=== PATIENT | female | born 1940 | race Caucasian/White ===

== ENCOUNTER → 2018-03-18 11:03 | Outpatient (CLI) | payer MEDICARE, OTHER, SELFPAY ==
--- NOTE | 2018-03-18 | DI.RAD.S_ITS ---
PROCEDURE: XR ANKLE RT MIN 3V INDICATIONS: RIGHT ANKLE PAIN TECHNIQUE: 3 views of the ankle were acquired. COMPARISON: None. FINDINGS: Bones: No fractures or dislocations. Ankle mortise is normally aligned. No suspicious bony lesions. Soft tissues: No tibiotalar joint effusion. Achilles tendon appears normal. IMPRESSION: No trauma found. Mild plantar fascial insertion spurring, minimal Achilles tendon insertion spurring on the posterior calcaneus. Dictated by: Christiano Liao M.D. on 03/18/2018 at 12:33 Approved by: Christiano Liao M.D. on 03/18/2018 at 12:33
== END ==
PROVIDERS: Family Provider Family Medicine; PCP Family Medicine; Visit Provider Family Medicine
DX: M25.571 Pain in right ankle and joints of right foot (principal); M77.31 Calcaneal spur, right foot
CPT/HCPCS: 73610

== ENCOUNTER → 2018-08-31 18:09 | Outpatient (CLI) | payer MEDICARE, OTHER, SELFPAY | PROVIDERS: Family Provider Family Medicine; PCP Family Medicine; Visit Provider Physician Assistant | DX: N39.0 Urinary tract infection, site not specified (principal) | CPT/HCPCS: 87077; 87086; 87186 ==

== ENCOUNTER → 2018-12-06 17:02 | Outpatient (CLI) | payer MEDICARE, OTHER, SELFPAY ==
--- NOTE | 2018-12-06 17:05 | DI.MG.S_ITS ---
BILATERAL DIGITAL SCREENING MAMMOGRAM 3D/2D WITH CAD: 12/06/2018 CLINICAL: Routine screening. Comparison is made to exams dated: 03/08/2015 mammogram, 03/09/2016 mammogram, and 03/12/2017 mammogram - [facility] Current study was also evaluated with a Computer Aided Detection (CAD) system. There are benign calcifications in both breasts. No significant masses, calcifications, or other findings are seen in either breast. There has been no significant interval change. IMPRESSION: There is no mammographic evidence of malignancy. A 1 year screening mammogram is recommended. This exam was interpreted at Station ID: [id number]. NOTE: For mammograms, a report in lay terms will be sent to the patient. Approximately 15% of breast malignancies will not be visualized mammographically. In the management of a palpable breast mass, a negative mammogram must not discourage biopsy of a clinically suspicious lesion. Electronically Signed By: Gema gonsalves/clarisse:12/07/2018 09:39:59 letter sent: Normal Exam ACR BI-RADS Category 2: Benign Finding(s) [id number]
== END ==
PROVIDERS: Family Provider Family Medicine; PCP Family Medicine; Visit Provider Family Medicine
DX: Z12.31 Encounter for screening mammogram for malignant neoplasm of breast (principal)
CPT/HCPCS: 77063; 77067

== ENCOUNTER → 2018-12-19 15:14 | Outpatient (CLI) | payer MEDICARE, OTHER, SELFPAY | PROVIDERS: Family Provider Family Medicine; PCP Family Medicine; Visit Provider Family Medicine | DX: M81.0 Age-related osteoporosis without current pathological fracture (principal); Z82.62 Family history of osteoporosis; M85.832 Other specified disorders of bone density and structure, left forearm; Z78.0 Asymptomatic menopausal state | CPT/HCPCS: 77080 ==

== ENCOUNTER → 2019-03-02 13:09 | Outpatient (CLI) | payer MEDICARE, OTHER, SELFPAY ==
--- NOTE | 2019-03-02 | DI.RAD.S_ITS ---
PROCEDURE: XR FOOT RT MIN 3V INDICATIONS: RIGHT TOE PAIN TECHNIQUE: 3 views of the foot were acquired. COMPARISON: None. FINDINGS: Bones: No fractures or dislocations. No suspicious bony lesions. There is bunioin. Severe degenerative joint disease at the calcaneocuboid joint and first metatarsophalangeal joint, and mild to moderate degenerative joint disease at the intertarsal joints, tarsometatarsal joints and interphalangeal joints. Calcaneal spurring. There is osteopenia. Soft tissues: No tibiotalar joint effusion. Achilles tendon appears normal. IMPRESSION: 1. Bunion. 2. Degenerative joint disease. 3. Osteopenia. Dictated by: Elizabeth Vasquez M.D. on 03/02/2019 at 17:50 Approved by: Elizabeth Vasquez M.D. on 03/02/2019 at 17:52
== END ==
PROVIDERS: PCP Family Medicine; Visit Provider Podiatrist
DX: M79.674 Pain in right toe(s) (principal); M21.611 Bunion of right foot; M19.071 Primary osteoarthritis, right ankle and foot; M85.871 Other specified disorders of bone density and structure, right ankle and foot
CPT/HCPCS: 73630

== ENCOUNTER 2019-04-05 12:00 | Outpatient (RCR) | payer MEDICARE, OTHER, SELFPAY ==
--- NOTE | 2019-03-15 18:10 | PT.OIE ---
Current Diagnoses Pain in unspecified foot (03/15/19) Unspecified abnormalities of gait and mobility (03/15/19) Unspecified lack of coordination (03/15/19) Abnormal posture (03/15/19) Visit Care Team Role Provider Type Richie Lamb MD Attending Provider Physician Primary Care Provider Specialty: Family Practice Address: [address] [place] [address], [place], [address] Email: [email or web address] Physical Therapy Initial Evaluation PT-OP-A Visit Information Start: 03/15/19 17:18 Freq: Status: Active Protocol: Document 03/15/19 17:23 AW (Rec: 03/15/19 17:55 AW [email or web address]) Out-Patient Physical Therapy Visit Information Visit Information Visit Type Initial Evaluation Visit Start Time 14:30 Visit Stop Time 15:15 Total Visit Minutes 45 Visit Number 1 Number of GAME ENGINEER Visits 0 Evaluation Information Evaluation Date 03/15/19 Precautions Precautions Falls risk PT-OP-B Current Condition Start: 03/15/19 17:18 Freq: Status: Active Protocol: Document 03/15/19 17:23 AW (Rec: 03/15/19 17:55 AW [email or web address]) Current Condition History of Current Condition Onset Date years Current Complaints right foot/ankle pain, decreased balance History of Current Condition Nevaeh complains of right foot and ankle pain that has been worsening over years. She reports remote sprain of right ankle while playing high school basketball but no other trauma. She sees Dr. Bowman for foot concerns including bilateral hallux valgus and bunions. She uses custom orthotics from Dr. Bowman which provide medial arch support and posting of the calcaneus. She reports her pain is helped with rest, heat, medicated cream, and Aleve or Tylenol. Standing long periods or prolonged activity increase her pain. Nevaeh also has concerns about balance. She reports two falls in the past two years - neither of which were injurious - but she does endorse multiple near-falls. Pt notes that she has increasingly relied on a trekking pole held in her right hand while walking on uneven ground such as in her garden and that she recently has need of a railing for climbing stairs. Prior Treatments and Tests Podiatry - ongoing with custom orthotics and foot care Treatment Goals Patient/Caregiver Goals Nevaeh would like to have less foot/ankle pain and to feel more confident on uneven terrain. Prior Functional Status Baseline Function- ADL's Independent Baseline Function- Mobility Modified Independent Baseline Function- Recreation/Hobbies Able to walk ~1 mile without pain. Able to work in her garden without fear of falls Current Functional Impairments (Reported) Functional Limitations- Mobility/Gait Unable to walk a mile without pain. Functional Limitations- Work/School Limited in her ability to perform volunteer responsibilities which require long periods of standing. Functional Limitations- Recreation/ Difficulty with balance on Hobbies uneven terrain, limiting her ability to work in the garden PT-OP-C Subjective Start: 03/15/19 17:18 Freq: Status: Active Protocol: Document 03/15/19 17:23 AW (Rec: 03/15/19 17:55 AW [email or web address]) OP-PT Subjective Patient Comments Patient Comments I want to be more confident getting around and to do it with less pain. Patient Questionnaires ABC- Activity Specific Balance Confidence Scale ABC Score 41.9 ABC Functional Impairment 40 to <60% Impaired (Score 41- 60) PT-OP-D Balance Start: 03/15/19 17:18 Freq: Status: Active Protocol: Document 03/15/19 17:23 AW (Rec: 03/15/19 17:55 AW [email or web address]) OP-PT Balance Assessment Sitting Balance Static Sitting Balance Ability Good Dynamic Sitting Balance Ability Good Standing Balance Static Standing Balance Ability Good Dynamic Standing Balance Ability Fair Device Used no AD Standing Balance Comments on Dynamic Gait Index, indicating increased risk of falls Burnham Fall Scale Copyright Permission PT-OP-F Manual Assessment Start: 03/15/19 17:18 Freq: Status: Active Protocol: Document 03/15/19 17:23 AW (Rec: 03/15/19 17:55 AW [email or web address]) Manual Assessments Joint Mobility Assessment Joint Mobility Assessment Restricted posterior talar glide bilaterally, right more affected than left Other Manual Assessments Other Manual Assessments Bilaterally, no point tenderness at met heads, navicular, tuberosity of 5th metatarsal, calcaneus, malleoli. PT-OP-G Mobility & Gait Start: 03/15/19 17:18 Freq: Status: Active Protocol: Document 03/15/19 17:23 AW (Rec: 03/15/19 17:55 AW [email or web address]) OP Gait Assessment Assistive Devices Assistive Device None Orthotic/Prosthetic Devices or Brace: Yes Gait Deviations General Gait Pattern Decreased Feet Clearance Comments Gait Comments Reduced arm swing, externally rotated hips, wide base of support, excessive pronation, reduced foot clearance, medial collapse of knees in stance phase. PT-OP-H Neuro Start: 03/15/19 17:18 Freq: Status: Active Protocol: Document 03/15/19 17:23 AW (Rec: 03/16/19 17:03 AW [id number]) Sensation Evaluation Gross Sensation Gross Sensation Left LE Impaired,Right LE Impaired Comments Summary Comments Diminished light touch sensation in no dermatomal pattern/stocking distribution of bilateral lower legs and feet. Distal is more affected than proximal Deep Tendon Reflex & Clonus Assessment Deep Tendon Reflex Bilateral Achilles Deep Tendon Reflex 1+ Diminished Bilateral Patellar Deep Tendon Reflex 2+ Normal Ankle Clonus Bilateral Clonus Assessment Absent PT-OP-K Range of Motion Start: 03/15/19 17:18 Freq: Status: Active Protocol: Document 03/15/19 17:23 AW (Rec: 03/16/19 17:03 AW [id number]) Ankle and Foot Goniometric Range of Motion Ankle and Foot Right Active Testing Position Supine Dorsiflexion with Knee Flexed 5 Dorsiflexion with Knee Extended 10 Plantarflexion 30 Inversion 18 Eversion 20 Left Testing Position Supine Dorsiflexion with Knee Flexed 10 Dorsiflexion with Knee Extended 10 Plantarflexion 25 Inversion 30 Eversion 12 Ankle and Foot ROM Limitations ROM Limitations Soft Tissue Tightness Comments tight PF and restricted talar posterior glides Toe Range of Motion Toes ROM Limitations Comments Biltateral hallux valgus affected equally PT-OP-M Strength Start: 03/15/19 17:18 Freq: Status: Active Protocol: Document 03/15/19 17:23 AW (Rec: 03/16/19 17:03 AW [id number]) Knee Strength Knee Manual Muscle Testing Left Flexion (S2) 4 Good Extension (L3) 5 Normal Right Flexion (S2) 4 Good Extension (L3) 5 Normal Ankle/Foot Strength Ankle and Foot Manual Muscle Testing Right Dorsiflexion (L4) 4 Good Plantarflexion (S1) 4+ Good+ Inversion 4 Good Eversion (S1) 4 Good Left Dorsiflexion (L4) 4+ Good+ Plantarflexion (S1) 4+ Good+ Inversion 4 Good Eversion (S1) 4 Good Toe Strength Toe Manual Muscle Testing Right Great Toe Extension 4+ Good+ Left Great Toe Extension 4+ Good+ PT-OP-T Assessment and Plan Start: 03/15/19 17:18 Freq: Status: Active Protocol: Document 03/15/19 17:23 AW (Rec: 03/16/19 17:03 AW [id number]) Physical Therapy Assessment Rehab Potential Rehabilitation Potential Good Evaluation Complexity Number of Personal Factors/Comorbidities 1-2 Number of Body Systems Impaired 1-2 Clinical Presentation at Evaluation Stable Impairments Impairments Balance,Functional Activities, Functional Mobility,Gait,Pain, Posture,ROM,Sensation,Soft Tissue Mobility,Strength, Transfers Other Concerns Fall Risk DGI indicates increased risk of falls Goals Five Impairment pain with prolonged standing Short Term Goal (STG) Pt will volunteer 4-hour shift with 4/10 or less ankle/foot pain STG Duration 04/12/19 Care Home Goal (LTG) Pt will volunteer 4-hour shift with 2/10 or less ankle/foot pain LTG Duration 05/10/19 Four Impairment Pt scores 42% on ABC Short Term Goal (STG) Pt will score 50% or greater on ABC for improved self- efficacy/confidence with mobility. STG Duration 04/12/19 Care Home Goal (LTG) Pt will score 60% or greater on ABC for improved self- efficacy/confidence with mobility/reduced risk of falls LTG Duration 05/10/19 Three Impairment impaired DF AROM Short Term Goal (STG) Pt will improve right ankle dorsiflexion AROM with knee extended to 10 degrees or greater measured in supine STG Duration 04/12/19 Two Impairment DGI score of - increased risk of falls Short Term Goal (STG) Pt will score 22/24 or greater on DGI for decreased fall risk STG Duration 04/12/19 Interior Decorator Goal (LTG) Pt will score 23/24 or greater on DGI for further reduction in fall risk LTG Duration 05/10/19 One Impairment pt has no HEP Short Term Goal (STG) Pt will be independent with HEP for support of services provided in clinic STG Duration 04/05/19 Care Home Goal (LTG) Pt will be independent with maintenance HEP LTG Duration 05/10/19 Assessment Summary Assessment Nevaeh is an active 78 year old woman who presents to physical therapy with chronic right foot and ankle pain. She has impaired ankle range of motion and strength bilaterally, 5-degree hindfoot valgus bilaterally, excessive pronation, bilateral hallux valgus, and diminished light touch sensation in bilateral lower legs. She reports two non-injurious falls in the past two years but endorses multiple near-falls. She is most unsteady on uneven terrain and tends to use a single trekking pole in her RUE. Her DGI score of 19/24 puts her in a higher risk category for falls. Her pain and decreased self-efficacy with mobility are affecting her ability to spend time in her garden and to perform her volunteer duties which require standing several hours at a time. She will benefit from skilled physical therapy to address these impairments and to increase her ability to participate in gardening and volunteer activities. Physical Therapy Plan Frequency and Duration Frequency of Treatment 1-2x/week Duration of Treatment 8 weeks Plan of Care Start Date 03/15/19 Plan of Care End Date 05/10/19 Therapeutic Interventions Therapeutic Interventions Balance Training,Coordination Training,Gait Training,Home Exercise Program,Joint Mobilizations,Manual Therapy, Neuromuscular Re-education, Orthotic/Prosthetic Management ,Patient/Caregiver Education, Self-Care/Home Management, Sensory Integration,Soft Tissue Mobilization,Taping, Therapeutic Activities, Therapeutic Exercises Modalities Cold Pack/Ice Massage,Electric Stimulation,Hot Packs, Ultrasound Next Visit Focus/Plan Next Note Type Treatment Note Next Visit Plan introduce ankle AROM activities, PF stretching, intrinsic foot muscle AROM, manual therapy for talar glides
--- NOTE | 2019-03-17 09:50 | PT.OTN ---
Current Diagnoses Pain in unspecified foot (03/17/19) Unspecified abnormalities of gait and mobility (03/17/19) Unspecified lack of coordination (03/17/19) Abnormal posture (03/17/19) Physical Therapy Treatment Note PT-OP-A Visit Information Start: 03/15/19 17:18 Freq: Status: Active Protocol: Document 03/15/19 17:23 AW (Rec: 03/15/19 17:55 AW [email or web address]) Out-Patient Physical Therapy Visit Information Visit Information Visit Type Initial Evaluation Visit Start Time 14:30 Visit Stop Time 15:15 Total Visit Minutes 45 Visit Number 1 Number of ADVANCE SCOUT Visits 0 Evaluation Information Evaluation Date 03/15/19 Precautions Precautions Falls risk PT-OP-B Current Condition Start: 03/15/19 17:18 Freq: Status: Active Protocol: Document 03/15/19 17:23 AW (Rec: 03/15/19 17:55 AW [email or web address]) Current Condition History of Current Condition Onset Date years Current Complaints right foot/ankle pain, decreased balance History of Current Condition Nevaeh complains of right foot and ankle pain that has been worsening over years. She reports remote sprain of right ankle while playing high school basketball but no other trauma. She sees Dr. Bowamn for foot concerns including bilateral hallux valgus and bunions. She uses custom orthotics from Dr. Bowman which provide medial arch support and posting of the calcaneus. She reports her pain is helped with rest, heat, medicated cream, and Aleve or Tylenol. Standing long periods or prolonged activity increase her pain. Nevaeh also has concerns about balance. She reports two falls in the past two years - neither of which were injurious - but she does endorse multiple near-falls. Pt notes that she has increasingly relied on a trekking pole held in her right hand while walking on uneven ground such as in her garden and that she recently has need of a railing for climbing stairs. Prior Treatments and Tests Podiatry - ongoing with custom orthotics and foot care Treatment Goals Patient/Caregiver Goals Nevaeh would like to have less foot/ankle pain and to feel more confident on uneven terrain. Prior Functional Status Baseline Function- ADL's Independent Baseline Function- Mobility Modified Independent Baseline Function- Recreation/Hobbies Able to walk ~1 mile without pain. Able to work in her garden without fear of falls Current Functional Impairments (Reported) Functional Limitations- Mobility/Gait Unable to walk a mile without pain. Functional Limitations- Work/School Limited in her ability to perform volunteer responsibilities which require long periods of standing. Functional Limitations- Recreation/ Difficulty with balance on Hobbies uneven terrain, limiting her ability to work in the garden PT-OP-C Subjective Start: 03/15/19 17:18 Freq: Status: Active Protocol: Document 03/17/19 09:50 SP (Rec: 03/17/19 16:30 SP [id number]) OP-PT Subjective Patient Comments Patient Comments I want to be more confident getting around and to do it with less pain. Patient Reported Progress Same PT-OP-D Balance Start: 03/15/19 17:18 Freq: Status: Active Protocol: Document 03/15/19 17:23 AW (Rec: 03/15/19 17:55 AW [email or web address]) OP-PT Balance Assessment Sitting Balance Static Sitting Balance Ability Good Dynamic Sitting Balance Ability Good Standing Balance Static Standing Balance Ability Good Dynamic Standing Balance Ability Fair Device Used no AD Standing Balance Comments on Dynamic Gait Index, indicating increased risk of falls Burnham Fall Scale Copyright Permission PT-OP-F Manual Assessment Start: 03/15/19 17:18 Freq: Status: Active Protocol: Document 03/15/19 17:23 AW (Rec: 03/15/19 17:55 AW [email or web address]) Manual Assessments Joint Mobility Assessment Joint Mobility Assessment Restricted posterior talar glide bilaterally, right more affected than left Other Manual Assessments Other Manual Assessments Bilaterally, no point tenderness at met heads, navicular, tuberosity of 5th metatarsal, calcaneus, malleoli. PT-OP-G Mobility & Gait Start: 03/15/19 17:18 Freq: Status: Active Protocol: Document 03/15/19 17:23 AW (Rec: 03/15/19 17:55 AW [email or web address]) OP Gait Assessment Assistive Devices Assistive Device None Orthotic/Prosthetic Devices or Brace: Yes Gait Deviations General Gait Pattern Decreased Feet Clearance Comments Gait Comments Reduced arm swing, externally rotated hips, wide base of support, excessive pronation, reduced foot clearance, medial collapse of knees in stance phase. PT-OP-H Neuro Start: 03/15/19 17:18 Freq: Status: Active Protocol: Document 03/15/19 17:23 AW (Rec: 03/16/19 17:03 AW [id number]) Sensation Evaluation Gross Sensation Gross Sensation Left LE Impaired,Right LE Impaired Comments Summary Comments Diminished light touch sensation in no dermatomal pattern/stocking distribution of bilateral lower legs and feet. Distal is more affected than proximal Deep Tendon Reflex & Clonus Assessment Deep Tendon Reflex Bilateral Achilles Deep Tendon Reflex 1+ Diminished Bilateral Patellar Deep Tendon Reflex 2+ Normal Ankle Clonus Bilateral Clonus Assessment Absent PT-OP-K Range of Motion Start: 03/15/19 17:18 Freq: Status: Active Protocol: Document 03/15/19 17:23 AW (Rec: 03/16/19 17:03 AW [id number]) Ankle and Foot Goniometric Range of Motion Ankle and Foot Right Active Testing Position Supine Dorsiflexion with Knee Flexed 5 Dorsiflexion with Knee Extended 10 Plantarflexion 30 Inversion 18 Eversion 20 Left Testing Position Supine Dorsiflexion with Knee Flexed 10 Dorsiflexion with Knee Extended 10 Plantarflexion 25 Inversion 30 Eversion 12 Ankle and Foot ROM Limitations ROM Limitations Soft Tissue Tightness Comments tight PF and restricted talar posterior glides Toe Range of Motion Toes ROM Limitations Comments Biltateral hallux valgus affected equally PT-OP-M Strength Start: 03/15/19 17:18 Freq: Status: Active Protocol: Document 03/15/19 17:23 AW (Rec: 03/16/19 17:03 AW [id number]) Knee Strength Knee Manual Muscle Testing Left Flexion (S2) 4 Good Extension (L3) 5 Normal Right Flexion (S2) 4 Good Extension (L3) 5 Normal Ankle/Foot Strength Ankle and Foot Manual Muscle Testing Right Dorsiflexion (L4) 4 Good Plantarflexion (S1) 4+ Good+ Inversion 4 Good Eversion (S1) 4 Good Left Dorsiflexion (L4) 4+ Good+ Plantarflexion (S1) 4+ Good+ Inversion 4 Good Eversion (S1) 4 Good Toe Strength Toe Manual Muscle Testing Right Great Toe Extension 4+ Good+ Left Great Toe Extension 4+ Good+ PT-OP-Q Treatments Start: 03/15/19 17:18 Freq: Status: Active Protocol: Document 03/17/19 09:50 SP (Rec: 03/17/19 16:30 SP [id number]) Therapeutic Exercises Supine Exercises PF stretch Side right Reps/Minutes 30 sec hold x3 intrinic contraction Supine Exercise Name toe scrunches, MTP abd Side right Reps/Minutes 3x10 ankle ROM Supine Exercise Name DF, PF, IV, EV Side right Reps/Minutes 3x10 each Sitting Exercises PF stretching Side right Reps/Minutes 30 sec x3 Manual Therapy Treatment Joint Mobilizations Talocrual AP mobe Joint R ankle talocrual Direction anterior>posterior Grade II Body Position Supine Reps/Duration x5 Comments feels like a good loosening of her ankle PT-OP-T Assessment and Plan Start: 03/15/19 17:18 Freq: Status: Active Protocol: Document 03/17/19 09:50 SP (Rec: 03/17/19 16:30 SP [id number]) Physical Therapy Assessment Assessment Summary Assessment Pt tolerated HEP initiated today. Reported 5/10 a good discomfort feels like is doing something. Cued for proper form, no adverse affects. Physical Therapy Plan Frequency and Duration Frequency of Treatment 1-2x/week Duration of Treatment 8 weeks Plan of Care Start Date 03/15/19 Plan of Care End Date 05/10/19 Therapeutic Interventions Therapeutic Interventions Balance Training,Coordination Training,Gait Training,Home Exercise Program,Joint Mobilizations,Manual Therapy, Neuromuscular Re-education, Orthotic/Prosthetic Management ,Patient/Caregiver Education, Self-Care/Home Management, Sensory Integration,Soft Tissue Mobilization,Taping, Therapeutic Activities, Therapeutic Exercises Modalities Cold Pack/Ice Massage,Electric Stimulation,Hot Packs, Ultrasound Next Visit Focus/Plan Next Note Type Treatment Note Next Visit Plan Introduce ankle AROM activities, PF stretching, intrinsic foot muscle AROM, manual therapy for talar glides. Possible TB ex. Going out of town for 1 month in few weeks.
--- NOTE | 2019-03-20 13:10 | PT.OTN ---
Current Diagnoses Pain in unspecified foot (03/20/19) Unspecified abnormalities of gait and mobility (03/20/19) Unspecified lack of coordination (03/20/19) Abnormal posture (03/20/19) Physical Therapy Treatment Note PT-OP-A Visit Information Start: 03/15/19 17:18 Freq: Status: Active Protocol: Document 03/20/19 12:49 AW (Rec: 03/21/19 13:09 AW [id number]) Out-Patient Physical Therapy Visit Information Visit Information Visit Type Treatment Note Visit Start Time 09:46 Visit Stop Time 10:28 Total Visit Minutes 42 Visit Number 3 Number of MANUFACTURING RECRUITER Visits 0 PT-OP-B Current Condition Start: 03/15/19 17:18 Freq: Status: Active Protocol: Document 03/15/19 17:23 AW (Rec: 03/15/19 17:55 AW [email or web address]) Current Condition History of Current Condition Onset Date years Current Complaints right foot/ankle pain, decreased balance History of Current Condition Nevaeh complains of right foot and ankle pain that has been worsening over years. She reports remote sprain of right ankle while playing high school basketball but no other trauma. She sees Dr. Bowman for foot concerns including bilateral hallux valgus and bunions. She uses custom orthotics from Dr. Bowman which provide medial arch support and posting of the calcaneus. She reports her pain is helped with rest, heat, medicated cream, and Aleve or Tylenol. Standing long periods or prolonged activity increase her pain. Nevaeh also has concerns about balance. She reports two falls in the past two years - neither of which were injurious - but she does endorse multiple near-falls. Pt notes that she has increasingly relied on a trekking pole held in her right hand while walking on uneven ground such as in her garden and that she recently has need of a railing for climbing stairs. Prior Treatments and Tests Podiatry - ongoing with custom orthotics and foot care Treatment Goals Patient/Caregiver Goals Nevaeh would like to have less foot/ankle pain and to feel more confident on uneven terrain. Prior Functional Status Baseline Function- ADL's Independent Baseline Function- Mobility Modified Independent Baseline Function- Recreation/Hobbies Able to walk ~1 mile without pain. Able to work in her garden without fear of falls Current Functional Impairments (Reported) Functional Limitations- Mobility/Gait Unable to walk a mile without pain. Functional Limitations- Work/School Limited in her ability to perform volunteer responsibilities which require long periods of standing. Functional Limitations- Recreation/ Difficulty with balance on Hobbies uneven terrain, limiting her ability to work in the garden PT-OP-C Subjective Start: 03/15/19 17:18 Freq: Status: Active Protocol: Document 03/20/19 12:49 AW (Rec: 03/21/19 13:09 AW [id number]) OP-PT Subjective Patient Comments Patient Comments I went to [place] over the weekend. Pain with lots of walking was same as usual - about 10/07. Patient Reported Progress Same PT-OP-D Balance Start: 03/15/19 17:18 Freq: Status: Active Protocol: Document 03/15/19 17:23 AW (Rec: 03/15/19 17:55 AW [email or web address]) OP-PT Balance Assessment Sitting Balance Static Sitting Balance Ability Good Dynamic Sitting Balance Ability Good Standing Balance Static Standing Balance Ability Good Dynamic Standing Balance Ability Fair Device Used no AD Standing Balance Comments on Dynamic Gait Index, indicating increased risk of falls Burnham Fall Scale Copyright Permission PT-OP-F Manual Assessment Start: 03/15/19 17:18 Freq: Status: Active Protocol: Document 03/15/19 17:23 AW (Rec: 03/15/19 17:55 AW [email or web address]) Manual Assessments Joint Mobility Assessment Joint Mobility Assessment Restricted posterior talar glide bilaterally, right more affected than left Other Manual Assessments Other Manual Assessments Bilaterally, no point tenderness at met heads, navicular, tuberosity of 5th metatarsal, calcaneus, malleoli. PT-OP-G Mobility & Gait Start: 03/15/19 17:18 Freq: Status: Active Protocol: Document 03/15/19 17:23 AW (Rec: 03/15/19 17:55 AW [email or web address]) OP Gait Assessment Assistive Devices Assistive Device None Orthotic/Prosthetic Devices or Brace: Yes Gait Deviations General Gait Pattern Decreased Feet Clearance Comments Gait Comments Reduced arm swing, externally rotated hips, wide base of support, excessive pronation, reduced foot clearance, medial collapse of knees in stance phase. PT-OP-H Neuro Start: 03/15/19 17:18 Freq: Status: Active Protocol: Document 03/15/19 17:23 AW (Rec: 03/16/19 17:03 AW [id number]) Sensation Evaluation Gross Sensation Gross Sensation Left LE Impaired,Right LE Impaired Comments Summary Comments Diminished light touch sensation in no dermatomal pattern/stocking distribution of bilateral lower legs and feet. Distal is more affected than proximal Deep Tendon Reflex & Clonus Assessment Deep Tendon Reflex Bilateral Achilles Deep Tendon Reflex 1+ Diminished Bilateral Patellar Deep Tendon Reflex 2+ Normal Ankle Clonus Bilateral Clonus Assessment Absent PT-OP-K Range of Motion Start: 03/15/19 17:18 Freq: Status: Active Protocol: Document 03/15/19 17:23 AW (Rec: 03/16/19 17:03 AW [id number]) Ankle and Foot Goniometric Range of Motion Ankle and Foot Right Active Testing Position Supine Dorsiflexion with Knee Flexed 5 Dorsiflexion with Knee Extended 10 Plantarflexion 30 Inversion 18 Eversion 20 Left Testing Position Supine Dorsiflexion with Knee Flexed 10 Dorsiflexion with Knee Extended 10 Plantarflexion 25 Inversion 30 Eversion 12 Ankle and Foot ROM Limitations ROM Limitations Soft Tissue Tightness Comments tight PF and restricted talar posterior glides Toe Range of Motion Toes ROM Limitations Comments Biltateral hallux valgus affected equally PT-OP-M Strength Start: 03/15/19 17:18 Freq: Status: Active Protocol: Document 03/15/19 17:23 AW (Rec: 03/16/19 17:03 AW [id number]) Knee Strength Knee Manual Muscle Testing Left Flexion (S2) 4 Good Extension (L3) 5 Normal Right Flexion (S2) 4 Good Extension (L3) 5 Normal Ankle/Foot Strength Ankle and Foot Manual Muscle Testing Right Dorsiflexion (L4) 4 Good Plantarflexion (S1) 4+ Good+ Inversion 4 Good Eversion (S1) 4 Good Left Dorsiflexion (L4) 4+ Good+ Plantarflexion (S1) 4+ Good+ Inversion 4 Good Eversion (S1) 4 Good Toe Strength Toe Manual Muscle Testing Right Great Toe Extension 4+ Good+ Left Great Toe Extension 4+ Good+ PT-OP-Q Treatments Start: 03/15/19 17:18 Freq: Status: Active Protocol: Document 03/20/19 12:49 AW (Rec: 03/21/19 13:09 AW [id number]) Cardio Equipment Recumbent Bicycle Duration (Minutes) 6 Resistance 3 Seat Position 11 Therapeutic Exercises Supine Exercises PF stretch Supine Exercise Name gastroc and soleus stretch Side right Reps/Minutes 30 sec hold x4 Sitting Exercises 3 Sitting Exercise Name toe scrunches, MTP abd Side right Equipment Used towel Reps/Minutes 3x10 reps Comments pt has severely limited MTP abduction range 2 Sitting Exercise Name seated arch lifts Side right Reps/Minutes 2x10 reps Comments cues to keep heels, met heads in contact with floor 1 Sitting Exercise Name resisted DF, PF, inversion, eversion Side right Resistance level 1 band Equipment Used T band Reps/Minutes 2x10 reps each plane Comments inversion primarily forefoot movement Standing Exercises 2 Standing Exercise Name heel lifts Side bilateral Equipment Used 6 step Reps/Minutes 2x10 reps Comments cues to drop heels slowly, rise up on forefoot 1 Standing Exercise Name PF stretch Side right Equipment Used ROSE Reps/Minutes 30 sec hold x 4 Manual Therapy Treatment Joint Mobilizations PIP extension Joint MTP Direction dorsal>plantar Grade II Body Position Hooklying Reps/Duration 4 minutes Comments for improved PIP extension digits 1-5 right Talocrual AP mobe Joint R ankle talocrual Direction anterior>posterior Grade III Body Position Supine Reps/Duration 5 minutes Comments tolerated well PT-OP-T Assessment and Plan Start: 03/15/19 17:18 Freq: Status: Active Protocol: Document 03/20/19 12:49 AW (Rec: 03/21/19 13:09 AW [id number]) Physical Therapy Assessment Other Concerns Fall Risk DGI indicates increased risk of falls Goals Five Impairment pain with prolonged standing Short Term Goal (STG) Pt will volunteer 4-hour shift with 4/10 or less ankle/foot pain STG Duration 04/12/19 Claim Administrator Goal (LTG) Pt will volunteer 4-hour shift with 2/10 or less ankle/foot pain LTG Duration 05/10/19 Four Impairment Pt scores 42% on ABC Short Term Goal (STG) Pt will score 50% or greater on ABC for improved self- efficacy/confidence with mobility. STG Duration 04/12/19 Claim Administrator Goal (LTG) Pt will score 60% or greater on ABC for improved self- efficacy/confidence with mobility/reduced risk of falls LTG Duration 05/10/19 Three Impairment impaired DF AROM Short Term Goal (STG) Pt will improve right ankle dorsiflexion AROM with knee extended to 10 degrees or greater measured in supine STG Duration 04/12/19 Two Impairment DGI score of 19/24 - increased risk of falls Short Term Goal (STG) Pt will score 22/24 or greater on DGI for decreased fall risk STG Duration 04/12/19 Snf Goal (LTG) Pt will score 23/24 or greater on DGI for further reduction in fall risk LTG Duration 05/10/19 One Impairment pt has no HEP Short Term Goal (STG) Pt will be independent with HEP for support of services provided in clinic STG Duration 04/05/19 Claim Administrator Goal (LTG) Pt will be independent with maintenance HEP LTG Duration 05/10/19 Assessment Summary Assessment Pt did not perform HEP daily over weekend. Spent session reviewing HEP, answering questions. Introduced arch lift in sitting which was challenging for pt Physical Therapy Plan Frequency and Duration Frequency of Treatment 1-2x/week Duration of Treatment 8 weeks Plan of Care Start Date 03/15/19 Plan of Care End Date 05/10/19 Therapeutic Interventions Therapeutic Interventions Balance Training,Coordination Training,Gait Training,Home Exercise Program,Joint Mobilizations,Manual Therapy, Neuromuscular Re-education, Orthotic/Prosthetic Management ,Patient/Caregiver Education, Self-Care/Home Management, Sensory Integration,Soft Tissue Mobilization,Taping, Therapeutic Activities, Therapeutic Exercises Modalities Cold Pack/Ice Massage,Electric Stimulation,Hot Packs, Ultrasound Next Visit Focus/Plan Next Note Type Treatment Note Next Visit Plan Continue and progress resisted ankle AROM. Add more seated and standing intrinsic foot ther ex. Manual therapy for improved DF and MTP extension.
--- NOTE | 2019-03-22 17:39 | PT.OTN ---
Current Diagnoses Pain in unspecified foot (03/22/19) Unspecified abnormalities of gait and mobility (03/22/19) Unspecified lack of coordination (03/22/19) Abnormal posture (03/22/19) Physical Therapy Treatment Note PT-OP-A Visit Information Start: 03/15/19 17:18 Freq: Status: Active Protocol: Document 03/22/19 17:27 AW (Rec: 03/22/19 17:39 AW [email or web address]) Out-Patient Physical Therapy Visit Information Visit Information Visit Type Treatment Note Visit Start Time 13:00 Visit Stop Time 13:43 Total Visit Minutes 43 Visit Number 4 Number of PREPARATION SUPERVISOR CANNING Visits 0 PT-OP-B Current Condition Start: 03/15/19 17:18 Freq: Status: Active Protocol: Document 03/15/19 17:23 AW (Rec: 03/15/19 17:55 AW [email or web address]) Current Condition History of Current Condition Onset Date years Current Complaints right foot/ankle pain, decreased balance History of Current Condition Nevaeh complains of right foot and ankle pain that has been worsening over years. She reports remote sprain of right ankle while playing high school basketball but no other trauma. She sees Dr. Bowman for foot concerns including bilateral hallux valgus and bunions. She uses custom orthotics from Dr. Bowman which provide medial arch support and posting of the calcaneus. She reports her pain is helped with rest, heat, medicated cream, and Aleve or Tylenol. Standing long periods or prolonged activity increase her pain. Nevaeh also has concerns about balance. She reports two falls in the past two years - neither of which were injurious - but she does endorse multiple near-falls. Pt notes that she has increasingly relied on a trekking pole held in her right hand while walking on uneven ground such as in her garden and that she recently has need of a railing for climbing stairs. Prior Treatments and Tests Podiatry - ongoing with custom orthotics and foot care Treatment Goals Patient/Caregiver Goals Nevaeh would like to have less foot/ankle pain and to feel more confident on uneven terrain. Prior Functional Status Baseline Function- ADL's Independent Baseline Function- Mobility Modified Independent Baseline Function- Recreation/Hobbies Able to walk ~1 mile without pain. Able to work in her garden without fear of falls Current Functional Impairments (Reported) Functional Limitations- Mobility/Gait Unable to walk a mile without pain. Functional Limitations- Work/School Limited in her ability to perform volunteer responsibilities which require long periods of standing. Functional Limitations- Recreation/ Difficulty with balance on Hobbies uneven terrain, limiting her ability to work in the garden PT-OP-C Subjective Start: 03/15/19 17:18 Freq: Status: Active Protocol: Document 03/22/19 17:27 AW (Rec: 03/22/19 17:39 AW [email or web address]) OP-PT Subjective Patient Comments Patient Comments I feel sore after a visit but don't have increased pain. I definitely feel like I'm doing something. Patient Reported Progress Same PT-OP-D Balance Start: 03/15/19 17:18 Freq: Status: Active Protocol: Document 03/15/19 17:23 AW (Rec: 03/15/19 17:55 AW [email or web address]) OP-PT Balance Assessment Sitting Balance Static Sitting Balance Ability Good Dynamic Sitting Balance Ability Good Standing Balance Static Standing Balance Ability Good Dynamic Standing Balance Ability Fair Device Used no AD Standing Balance Comments on Dynamic Gait Index, indicating increased risk of falls Burnham Fall Scale Copyright Permission PT-OP-F Manual Assessment Start: 03/15/19 17:18 Freq: Status: Active Protocol: Document 03/15/19 17:23 AW (Rec: 03/15/19 17:55 AW [email or web address]) Manual Assessments Joint Mobility Assessment Joint Mobility Assessment Restricted posterior talar glide bilaterally, right more affected than left Other Manual Assessments Other Manual Assessments Bilaterally, no point tenderness at met heads, navicular, tuberosity of 5th metatarsal, calcaneus, malleoli. PT-OP-G Mobility & Gait Start: 03/15/19 17:18 Freq: Status: Active Protocol: Document 03/15/19 17:23 AW (Rec: 03/15/19 17:55 AW [email or web address]) OP Gait Assessment Assistive Devices Assistive Device None Orthotic/Prosthetic Devices or Brace: Yes Gait Deviations General Gait Pattern Decreased Feet Clearance Comments Gait Comments Reduced arm swing, externally rotated hips, wide base of support, excessive pronation, reduced foot clearance, medial collapse of knees in stance phase. PT-OP-H Neuro Start: 03/15/19 17:18 Freq: Status: Active Protocol: Document 03/15/19 17:23 AW (Rec: 03/16/19 17:03 AW [id number]) Sensation Evaluation Gross Sensation Gross Sensation Left LE Impaired,Right LE Impaired Comments Summary Comments Diminished light touch sensation in no dermatomal pattern/stocking distribution of bilateral lower legs and feet. Distal is more affected than proximal Deep Tendon Reflex & Clonus Assessment Deep Tendon Reflex Bilateral Achilles Deep Tendon Reflex 1+ Diminished Bilateral Patellar Deep Tendon Reflex 2+ Normal Ankle Clonus Bilateral Clonus Assessment Absent PT-OP-K Range of Motion Start: 03/15/19 17:18 Freq: Status: Active Protocol: Document 03/15/19 17:23 AW (Rec: 03/16/19 17:03 AW [id number]) Ankle and Foot Goniometric Range of Motion Ankle and Foot Right Active Testing Position Supine Dorsiflexion with Knee Flexed 5 Dorsiflexion with Knee Extended 10 Plantarflexion 30 Inversion 18 Eversion 20 Left Testing Position Supine Dorsiflexion with Knee Flexed 10 Dorsiflexion with Knee Extended 10 Plantarflexion 25 Inversion 30 Eversion 12 Ankle and Foot ROM Limitations ROM Limitations Soft Tissue Tightness Comments tight PF and restricted talar posterior glides Toe Range of Motion Toes ROM Limitations Comments Biltateral hallux valgus affected equally PT-OP-M Strength Start: 03/15/19 17:18 Freq: Status: Active Protocol: Document 03/15/19 17:23 AW (Rec: 03/16/19 17:03 AW [id number]) Knee Strength Knee Manual Muscle Testing Left Flexion (S2) 4 Good Extension (L3) 5 Normal Right Flexion (S2) 4 Good Extension (L3) 5 Normal Ankle/Foot Strength Ankle and Foot Manual Muscle Testing Right Dorsiflexion (L4) 4 Good Plantarflexion (S1) 4+ Good+ Inversion 4 Good Eversion (S1) 4 Good Left Dorsiflexion (L4) 4+ Good+ Plantarflexion (S1) 4+ Good+ Inversion 4 Good Eversion (S1) 4 Good Toe Strength Toe Manual Muscle Testing Right Great Toe Extension 4+ Good+ Left Great Toe Extension 4+ Good+ PT-OP-Q Treatments Start: 03/15/19 17:18 Freq: Status: Active Protocol: Document 03/22/19 17:27 AW (Rec: 03/22/19 17:39 AW [email or web address]) Cardio Equipment Recumbent Bicycle Duration (Minutes) 6 Resistance 3 Seat Position 11 Therapeutic Exercises Supine Exercises PF stretch Supine Exercise Name gastroc and hamstring stretch Side right Equipment Used gait belt Reps/Minutes 1 minute hold x 2 Comments instructed pt in stretch for home ankle ROM Supine Exercise Name DF, PF, IV, EV Side right Reps/Minutes 3x10 each Sitting Exercises 2 Sitting Exercise Name seated arch lifts Side right Reps/Minutes 2x10 reps Comments manual resistance to keep met heads in contact with floor Standing Exercises 5 Standing Exercise Name single leg stance with resisted leg semicircles Side bilateral Resistance level 1 Equipment Used T band Reps/Minutes // bars for UE support Comments pt with heavy reliance on UE support 4 Standing Exercise Name single leg stance Side bilateral Equipment Used // bars for UE support as needed Reps/Minutes 4 minutes 3 Standing Exercise Name narrow stance Side bilateral Equipment Used gait belt Reps/Minutes 4 minutes Comments EO, EC; EC limited to ~10 seconds before LOB requiring support 1 Standing Exercise Name PF stretch Side right Equipment Used ROSE Reps/Minutes 30 sec hold x 4 Manual Therapy Treatment Joint Mobilizations PIP extension Joint MTP Direction dorsal>plantar Grade II Body Position Hooklying Reps/Duration 5 minutes Comments for improved PIP extension digits 1-5 right Talocrual AP mobe Joint R ankle talocrual Direction anterior>posterior Grade III Body Position Supine Reps/Duration 5 minutes Comments tolerated well PT-OP-T Assessment and Plan Start: 03/15/19 17:18 Freq: Status: Active Protocol: Document 03/22/19 17:27 AW (Rec: 03/22/19 17:39 AW [email or web address]) Physical Therapy Assessment Other Concerns Fall Risk DGI indicates increased risk of falls Goals Five Impairment pain with prolonged standing Short Term Goal (STG) Pt will volunteer 4-hour shift with 4/10 or less ankle/foot pain STG Duration 04/12/19 Metal Miner Goal (LTG) Pt will volunteer 4-hour shift with 2/10 or less ankle/foot pain LTG Duration 05/10/19 Four Impairment Pt scores 42% on ABC Short Term Goal (STG) Pt will score 50% or greater on ABC for improved self- efficacy/confidence with mobility. STG Duration 04/12/19 Metal Miner Goal (LTG) Pt will score 60% or greater on ABC for improved self- efficacy/confidence with mobility/reduced risk of falls LTG Duration 05/10/19 Three Impairment impaired DF AROM Short Term Goal (STG) Pt will improve right ankle dorsiflexion AROM with knee extended to 10 degrees or greater measured in supine STG Duration 04/12/19 Two Impairment DGI score of 19/24 - increased risk of falls Short Term Goal (STG) Pt will score 22/24 or greater on DGI for decreased fall risk STG Duration 04/12/19 Metal Miner Goal (LTG) Pt will score 23/24 or greater on DGI for further reduction in fall risk LTG Duration 05/10/19 One Impairment pt has no HEP Short Term Goal (STG) Pt will be independent with HEP for support of services provided in clinic STG Duration 04/05/19 Metal Miner Goal (LTG) Pt will be independent with maintenance HEP LTG Duration 05/10/19 Assessment Summary Assessment Arch lifting in sitting continues to be challenging. Used manual resistance this session to keep met heads in contact with floor during exercise. Pt requires UE support for single leg balance activities. Will plan to fade UE support as able. Physical Therapy Plan Frequency and Duration Frequency of Treatment 1-2x/week Duration of Treatment 8 weeks Plan of Care Start Date 03/15/19 Plan of Care End Date 05/10/19 Therapeutic Interventions Therapeutic Interventions Balance Training,Coordination Training,Gait Training,Home Exercise Program,Joint Mobilizations,Manual Therapy, Neuromuscular Re-education, Orthotic/Prosthetic Management ,Patient/Caregiver Education, Self-Care/Home Management, Sensory Integration,Soft Tissue Mobilization,Taping, Therapeutic Activities, Therapeutic Exercises Modalities Cold Pack/Ice Massage,Electric Stimulation,Hot Packs, Ultrasound Next Visit Focus/Plan Next Note Type Treatment Note Next Visit Plan Continue and progress resisted ankle AROM. Add more seated and standing intrinsic foot ther ex. Manual therapy for improved DF and MTP extension.
--- NOTE | 2019-03-28 14:05 | PT.OTN ---
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 She reports remote sprain of right ankle while playing high school basketball but no other trauma. She sees Dr. Bowman for foot concerns including bilateral hallux valgus and bunions. She uses custom orthotics from Dr. Bowman which provide medial arch support and posting of the calcaneus. She reports her pain is helped with rest, heat, medicated cream, and Aleve or Tylenol. Standing long periods or prolonged activity increase her pain. Nevaeh also has concerns about balance. She reports two falls in the past two years - neither of which were injurious - but she does endorse multiple near-falls. Pt notes that she has increasingly relied on a trekking pole held in her right hand while walking on uneven ground such as in her garden and that she recently has need of a railing for climbing stairs. Prior Treatments and Tests Podiatry - ongoing with custom orthotics and foot care Treatment Goals Patient/Caregiver Goals Nevaeh would like to have less foot/ankle pain and to feel more confident on uneven terrain. Prior Functional Status Baseline Function- ADL's Independent Baseline Function- Mobility Modified Independent Baseline Function- Recreation/Hobbies Able to walk ~1 mile without pain. Able to work in her garden without fear of falls Current Functional Impairments (Reported) Functional Limitations- Mobility/Gait Unable to walk a mile without pain. Functional Limitations- Work/School Limited in her ability to perform volunteer responsibilities which require long periods of standing. Functional Limitations- Recreation/ Difficulty with balance on Hobbies uneven terrain, limiting her ability to work in the garden PT-OP-C Subjective Start: 03/15/19 17:18 Freq: Status: Active Protocol: Document 03/28/19 13:05 SP (Rec: 03/28/19 12:58 SP [id number]) OP-PT Subjective Patient Comments Patient Comments My ankle feels sore afte the exercises but no pain recently, feel the exercises PT-OP-D Balance Start: 03/15/19 17:18 Freq: Status: Active Protocol: Document 03/15/19 17:23 AW (Rec: 03/15/19 17:55 AW [email or web address]) OP-PT Balance Assessment Sitting Balance Static Sitting Balance Ability Good Dynamic Sitting Balance Ability Good Standing Balance Static Standing Balance Ability Good Dynamic Standing Balance Ability Fair Device Used no AD Standing Balance Comments on Dynamic Gait Index, indicating increased risk of falls Burnham Fall Scale Copyright Permission PT-OP-F Manual Assessment Start: 03/15/19 17:18 Freq: Status: Active Protocol: Document 03/15/19 17:23 AW (Rec: 03/15/19 17:55 AW [email or web address]) Manual Assessments Joint Mobility Assessment Joint Mobility Assessment Restricted posterior talar glide bilaterally, right more affected than left Other Manual Assessments Other Manual Assessments Bilaterally, no point tenderness at met heads, navicular, tuberosity of 5th metatarsal, calcaneus, malleoli. PT-OP-G Mobility & Gait Start: 03/15/19 17:18 Freq: Status: Active Protocol: Document 03/15/19 17:23 AW (Rec: 03/15/19 17:55 AW [email or web address]) OP Gait Assessment Assistive Devices Assistive Device None Orthotic/Prosthetic Devices or Brace: Yes Gait Deviations General Gait Pattern Decreased Feet Clearance Comments Gait Comments Reduced arm swing, externally rotated hips, wide base of support, excessive pronation, reduced foot clearance, medial collapse of knees in stance phase. PT-OP-H Neuro Start: 03/15/19 17:18 Freq: Status: Active Protocol: Document 03/15/19 17:23 AW (Rec: 03/16/19 17:03 AW [id number]) Sensation Evaluation Gross Sensation Gross Sensation Left LE Impaired,Right LE Impaired Comments Summary Comments Diminished light touch sensation in no dermatomal pattern/stocking distribution of bilateral lower legs and feet. Distal is more affected than proximal Deep Tendon Reflex & Clonus Assessment Deep Tendon Reflex Bilateral Achilles Deep Tendon Reflex 1+ Diminished Bilateral Patellar Deep Tendon Reflex 2+ Normal Ankle Clonus Bilateral Clonus Assessment Absent PT-OP-K Range of Motion Start: 03/15/19 17:18 Freq: Status: Active Protocol: Document 03/15/19 17:23 AW (Rec: 03/16/19 17:03 AW [id number]) Ankle and Foot Goniometric Range of Motion Ankle and Foot Right Active Testing Position Supine Dorsiflexion with Knee Flexed 5 Dorsiflexion with Knee Extended 10 Plantarflexion 30 Inversion 18 Eversion 20 Left Testing Position Supine Dorsiflexion with Knee Flexed 10 Dorsiflexion with Knee Extended 10 Plantarflexion 25 Inversion 30 Eversion 12 Ankle and Foot ROM Limitations ROM Limitations Soft Tissue Tightness Comments tight PF and restricted talar posterior glides Toe Range of Motion Toes ROM Limitations Comments Biltateral hallux valgus affected equally PT-OP-M Strength Start: 03/15/19 17:18 Freq: Status: Active Protocol: Document 03/15/19 17:23 AW (Rec: 03/16/19 17:03 AW [id number]) Knee Strength Knee Manual Muscle Testing Left Flexion (S2) 4 Good Extension (L3) 5 Normal Right Flexion (S2) 4 Good Extension (L3) 5 Normal Ankle/Foot Strength Ankle and Foot Manual Muscle Testing Right Dorsiflexion (L4) 4 Good Plantarflexion (S1) 4+ Good+ Inversion 4 Good Eversion (S1) 4 Good Left Dorsiflexion (L4) 4+ Good+ Plantarflexion (S1) 4+ Good+ Inversion 4 Good Eversion (S1) 4 Good Toe Strength Toe Manual Muscle Testing Right Great Toe Extension 4+ Good+ Left Great Toe Extension 4+ Good+ PT-OP-Q Treatments Start: 03/15/19 17:18 Freq: Status: Active Protocol: Document 03/28/19 13:05 SP (Rec: 03/28/19 12:58 SP [id number]) Cardio Equipment Recumbent Bicycle Duration (Minutes) 6 Resistance 4 Seat Position 11 Therapeutic Exercises Sitting Exercises calf stretch Sitting Exercise Name calf stretch Side right Equipment Used strap Reps/Minutes 30x3 1 Sitting Exercise Name resisted DF, PF, inversion, eversion Side right Resistance level 2 band Equipment Used T band Reps/Minutes 2x10 reps each plane Comments inversion primarily forefoot movement Standing Exercises step down Standing Exercise Name Lateral step down, alternating BLE Side bilateral Equipment Used 4 step Reps/Minutes 2x10 Comments cued posterior chain, knees behind & in line with toes, mid foot heel press 1 Standing Exercise Name single leg stance Side bilateral Equipment Used stair post Reps/Minutes 2 Comments cued COG over MICAH foot triangle PT-OP-T Assessment and Plan Start: 03/15/19 17:18 Freq: Status: Active Protocol: Document 03/28/19 13:05 SP (Rec: 03/28/19 13:56 SP [id number]) Physical Therapy Assessment Assessment Summary Assessment Pt requested review Tb HEP for R ankle for proper form, cued for LE and band positioning, tolerated increased Lv 2 band. Continued contact cues for MTP contact with floor for arch lifts to assist standing balance SLS, still heavy UE WB support. Physical Therapy Plan Frequency and Duration Frequency of Treatment 1-2x/week Duration of Treatment 8 weeks Plan of Care Start Date 03/15/19 Plan of Care End Date 05/10/19 Therapeutic Interventions Therapeutic Interventions Balance Training,Coordination Training,Gait Training,Home Exercise Program,Joint Mobilizations,Manual Therapy, Neuromuscular Re-education, Orthotic/Prosthetic Management ,Patient/Caregiver Education, Self-Care/Home Management, Sensory Integration,Soft Tissue Mobilization,Taping, Therapeutic Activities, Therapeutic Exercises Modalities Cold Pack/Ice Massage,Electric Stimulation,Hot Packs, Ultrasound Next Visit Focus/Plan Next Note Type Treatment Note Next Visit Plan Continue and progress resisted ankle AROM. Add more seated and standing intrinsic foot ther ex. Manual therapy for improved DF and MTP extension.
--- NOTE | 2019-03-30 14:15 | PT.OTN ---
Current Diagnoses Pain in unspecified foot (03/30/19) Unspecified abnormalities of gait and mobility (03/30/19) Unspecified lack of coordination (03/30/19) Abnormal posture (03/30/19) Physical Therapy Treatment Note PT-OP-A Visit Information Start: 03/15/19 17:18 Freq: Status: Active Protocol: Document 03/30/19 09:45 AMB (Rec: 03/30/19 09:54 AMB [id number]) Out-Patient Physical Therapy Visit Information Visit Information Visit Type Treatment Note Visit Start Time 09:45 Visit Stop Time 10:30 Total Visit Minutes 45 Visit Number 6 Number of [employer]IST Visits 0 PT-OP-B Current Condition Start: 03/15/19 17:18 Freq: Status: Active Protocol: Document 03/15/19 17:23 AW (Rec: 03/15/19 17:55 AW [email or web address]) Current Condition History of Current Condition Onset Date years Current Complaints right foot/ankle pain, decreased balance History of Current Condition Nevaeh complains of right foot and ankle pain that has been worsening over years. She reports remote sprain of right ankle while playing high school basketball but no other trauma. She sees Dr. Bowman for foot concerns including bilateral hallux valgus and bunions. She uses custom orthotics from Dr. Bowman which provide medial arch support and posting of the calcaneus. She reports her pain is helped with rest, heat, medicated cream, and Aleve or Tylenol. Standing long periods or prolonged activity increase her pain. Nevaeh also has concerns about balance. She reports two falls in the past two years - neither of which were injurious - but she does endorse multiple near-falls. Pt notes that she has increasingly relied on a trekking pole held in her right hand while walking on uneven ground such as in her garden and that she recently has need of a railing for climbing stairs. Prior Treatments and Tests Podiatry - ongoing with custom orthotics and foot care Treatment Goals Patient/Caregiver Goals Nevaeh would like to have less foot/ankle pain and to feel more confident on uneven terrain. Prior Functional Status Baseline Function- ADL's Independent Baseline Function- Mobility Modified Independent Baseline Function- Recreation/Hobbies Able to walk ~1 mile without pain. Able to work in her garden without fear of falls Current Functional Impairments (Reported) Functional Limitations- Mobility/Gait Unable to walk a mile without pain. Functional Limitations- Work/School Limited in her ability to perform volunteer responsibilities which require long periods of standing. Functional Limitations- Recreation/ Difficulty with balance on Hobbies uneven terrain, limiting her ability to work in the garden PT-OP-C Subjective Start: 03/15/19 17:18 Freq: Status: Active Protocol: Document 03/30/19 09:45 AMB (Rec: 03/30/19 09:54 AMB [id number]) OP-PT Subjective Patient Comments Patient Comments My ankle hasn't been feeling quite as sore after therapy lately. PT-OP-D Balance Start: 03/15/19 17:18 Freq: Status: Active Protocol: Document 03/15/19 17:23 AW (Rec: 03/15/19 17:55 AW [email or web address]) OP-PT Balance Assessment Sitting Balance Static Sitting Balance Ability Good Dynamic Sitting Balance Ability Good Standing Balance Static Standing Balance Ability Good Dynamic Standing Balance Ability Fair Device Used no AD Standing Balance Comments on Dynamic Gait Index, indicating increased risk of falls Burnham Fall Scale Copyright Permission PT-OP-F Manual Assessment Start: 03/15/19 17:18 Freq: Status: Active Protocol: Document 03/15/19 17:23 AW (Rec: 03/15/19 17:55 AW [email or web address]) Manual Assessments Joint Mobility Assessment Joint Mobility Assessment Restricted posterior talar glide bilaterally, right more affected than left Other Manual Assessments Other Manual Assessments Bilaterally, no point tenderness at met heads, navicular, tuberosity of 5th metatarsal, calcaneus, malleoli. PT-OP-G Mobility & Gait Start: 03/15/19 17:18 Freq: Status: Active Protocol: Document 03/15/19 17:23 AW (Rec: 03/15/19 17:55 AW [email or web address]) OP Gait Assessment Assistive Devices Assistive Device None Orthotic/Prosthetic Devices or Brace: Yes Gait Deviations General Gait Pattern Decreased Feet Clearance Comments Gait Comments Reduced arm swing, externally rotated hips, wide base of support, excessive pronation, reduced foot clearance, medial collapse of knees in stance phase. PT-OP-H Neuro Start: 03/15/19 17:18 Freq: Status: Active Protocol: Document 03/15/19 17:23 AW (Rec: 03/16/19 17:03 AW [id number]) Sensation Evaluation Gross Sensation Gross Sensation Left LE Impaired,Right LE Impaired Comments Summary Comments Diminished light touch sensation in no dermatomal pattern/stocking distribution of bilateral lower legs and feet. Distal is more affected than proximal Deep Tendon Reflex & Clonus Assessment Deep Tendon Reflex Bilateral Achilles Deep Tendon Reflex 1+ Diminished Bilateral Patellar Deep Tendon Reflex 2+ Normal Ankle Clonus Bilateral Clonus Assessment Absent PT-OP-K Range of Motion Start: 03/15/19 17:18 Freq: Status: Active Protocol: Document 03/15/19 17:23 AW (Rec: 03/16/19 17:03 AW [id number]) Ankle and Foot Goniometric Range of Motion Ankle and Foot Right Active Testing Position Supine Dorsiflexion with Knee Flexed 5 Dorsiflexion with Knee Extended 10 Plantarflexion 30 Inversion 18 Eversion 20 Left Testing Position Supine Dorsiflexion with Knee Flexed 10 Dorsiflexion with Knee Extended 10 Plantarflexion 25 Inversion 30 Eversion 12 Ankle and Foot ROM Limitations ROM Limitations Soft Tissue Tightness Comments tight PF and restricted talar posterior glides Toe Range of Motion Toes ROM Limitations Comments Biltateral hallux valgus affected equally PT-OP-M Strength Start: 03/15/19 17:18 Freq: Status: Active Protocol: Document 03/15/19 17:23 AW (Rec: 03/16/19 17:03 AW [id number]) Knee Strength Knee Manual Muscle Testing Left Flexion (S2) 4 Good Extension (L3) 5 Normal Right Flexion (S2) 4 Good Extension (L3) 5 Normal Ankle/Foot Strength Ankle and Foot Manual Muscle Testing Right Dorsiflexion (L4) 4 Good Plantarflexion (S1) 4+ Good+ Inversion 4 Good Eversion (S1) 4 Good Left Dorsiflexion (L4) 4+ Good+ Plantarflexion (S1) 4+ Good+ Inversion 4 Good Eversion (S1) 4 Good Toe Strength Toe Manual Muscle Testing Right Great Toe Extension 4+ Good+ Left Great Toe Extension 4+ Good+ PT-OP-Q Treatments Start: 03/15/19 17:18 Freq: Status: Active Protocol: Document 03/30/19 09:45 AMB (Rec: 03/30/19 14:15 AMB [email or web address]) Cardio Equipment Recumbent Bicycle Duration (Minutes) 6 Resistance 5 Seat Position 11 Therapeutic Exercises Sitting Exercises calf stretch Sitting Exercise Name calf stretch Side right Equipment Used strap Reps/Minutes 30x3 1 Sitting Exercise Name resisted DF, PF, inversion, eversion Side right Resistance level 2 band Equipment Used T band Reps/Minutes 2x10 reps each plane Comments inversion primarily forefoot movement Manual Therapy Treatment Joint Mobilizations Talocrual AP mobe Joint R ankle talocrual Direction anterior>posterior Grade III Body Position Supine Reps/Duration 5 minutes Comments tolerated well Manual Techniques 1 Type passive calf stretch Reps/Duration 30x2 Neuro Re-Education Treatment Balance Activities 2 Details modified tandem stance Comments eyes open with head turns, then eyes closed 1 Details single leg stance Comments at rail- challenging for more than a second or two- encouraged in spotting/using vision PT-OP-T Assessment and Plan Start: 03/15/19 17:18 Freq: Status: Active Protocol: Document 03/30/19 09:45 AMB (Rec: 03/30/19 14:15 AMB [email or web address]) Physical Therapy Assessment Assessment Summary Assessment Reviewed theraband again. Suggested pt could tie theraband to sturdy piece of furniture if she needs to- as sometimes crossing the leg over to do inversion bothers her knee. Pt will be going out of town for a family emergency, so only has one more appointment scheduled. Physical Therapy Plan Frequency and Duration Frequency of Treatment 1-2x/week Duration of Treatment 8 weeks Plan of Care Start Date 03/15/19 Plan of Care End Date 05/10/19 Therapeutic Interventions Therapeutic Interventions Balance Training,Coordination Training,Gait Training,Home Exercise Program,Joint Mobilizations,Manual Therapy, Neuromuscular Re-education, Orthotic/Prosthetic Management ,Patient/Caregiver Education, Self-Care/Home Management, Sensory Integration,Soft Tissue Mobilization,Taping, Therapeutic Activities, Therapeutic Exercises Modalities Cold Pack/Ice Massage,Electric Stimulation,Hot Packs, Ultrasound Next Visit Focus/Plan Next Note Type Treatment Note Next Visit Plan Continue and progress resisted ankle AROM. Add more seated and standing intrinsic foot ther ex. Manual therapy for improved DF and MTP extension.
--- NOTE | 2019-04-05 13:16 | PT.OTN ---
Current Diagnoses Pain in unspecified foot (04/05/19) Unspecified abnormalities of gait and mobility (04/05/19) Unspecified lack of coordination (04/05/19) Abnormal posture (04/05/19) Physical Therapy Treatment Note PT-OP-A Visit Information Start: 03/15/19 17:18 Freq: Status: Active Protocol: Document 04/05/19 13:05 AW (Rec: 04/05/19 13:16 AW [email or web address]) Out-Patient Physical Therapy Visit Information Visit Information Visit Type Treatment Note Visit Start Time 12:00 Visit Stop Time 12:46 Total Visit Minutes 46 Visit Number 7 Number of CAR SANDER Visits 0 PT-OP-B Current Condition Start: 03/15/19 17:18 Freq: Status: Active Protocol: Document 03/15/19 17:23 AW (Rec: 03/15/19 17:55 AW [email or web address]) Current Condition History of Current Condition Onset Date years Current Complaints right foot/ankle pain, decreased balance History of Current Condition Nevaeh complains of right foot and ankle pain that has been worsening over years. She reports remote sprain of right ankle while playing high school basketball but no other trauma. She sees Dr. Bowman for foot concerns including bilateral hallux valgus and bunions. She uses custom orthotics from Dr. Bowman which provide medial arch support and posting of the calcaneus. She reports her pain is helped with rest, heat, medicated cream, and Aleve or Tylenol. Standing long periods or prolonged activity increase her pain. Nevaeh also has concerns about balance. She reports two falls in the past two years - neither of which were injurious - but she does endorse multiple near-falls. Pt notes that she has increasingly relied on a trekking pole held in her right hand while walking on uneven ground such as in her garden and that she recently has need of a railing for climbing stairs. Prior Treatments and Tests Podiatry - ongoing with custom orthotics and foot care Treatment Goals Patient/Caregiver Goals Nevaeh would like to have less foot/ankle pain and to feel more confident on uneven terrain. Prior Functional Status Baseline Function- ADL's Independent Baseline Function- Mobility Modified Independent Baseline Function- Recreation/Hobbies Able to walk ~1 mile without pain. Able to work in her garden without fear of falls Current Functional Impairments (Reported) Functional Limitations- Mobility/Gait Unable to walk a mile without pain. Functional Limitations- Work/School Limited in her ability to perform volunteer responsibilities which require long periods of standing. Functional Limitations- Recreation/ Difficulty with balance on Hobbies uneven terrain, limiting her ability to work in the garden PT-OP-C Subjective Start: 03/15/19 17:18 Freq: Status: Active Protocol: Document 04/05/19 13:05 AW (Rec: 04/05/19 13:16 AW [email or web address]) OP-PT Subjective Patient Comments Patient Comments I'm getting ready to go on a month-long trip and need to make sure I understand my HEP before I go. PT-OP-D Balance Start: 03/15/19 17:18 Freq: Status: Active Protocol: Document 03/15/19 17:23 AW (Rec: 03/15/19 17:55 AW [email or web address]) OP-PT Balance Assessment Sitting Balance Static Sitting Balance Ability Good Dynamic Sitting Balance Ability Good Standing Balance Static Standing Balance Ability Good Dynamic Standing Balance Ability Fair Device Used no AD Standing Balance Comments on Dynamic Gait Index, indicating increased risk of falls Burnham Fall Scale Copyright Permission PT-OP-F Manual Assessment Start: 03/15/19 17:18 Freq: Status: Active Protocol: Document 03/15/19 17:23 AW (Rec: 03/15/19 17:55 AW [email or web address]) Manual Assessments Joint Mobility Assessment Joint Mobility Assessment Restricted posterior talar glide bilaterally, right more affected than left Other Manual Assessments Other Manual Assessments Bilaterally, no point tenderness at met heads, navicular, tuberosity of 5th metatarsal, calcaneus, malleoli. PT-OP-G Mobility & Gait Start: 03/15/19 17:18 Freq: Status: Active Protocol: Document 03/15/19 17:23 AW (Rec: 03/15/19 17:55 AW [email or web address]) OP Gait Assessment Assistive Devices Assistive Device None Orthotic/Prosthetic Devices or Brace: Yes Gait Deviations General Gait Pattern Decreased Feet Clearance Comments Gait Comments Reduced arm swing, externally rotated hips, wide base of support, excessive pronation, reduced foot clearance, medial collapse of knees in stance phase. PT-OP-H Neuro Start: 03/15/19 17:18 Freq: Status: Active Protocol: Document 03/15/19 17:23 AW (Rec: 03/16/19 17:03 AW [id number]) Sensation Evaluation Gross Sensation Gross Sensation Left LE Impaired,Right LE Impaired Comments Summary Comments Diminished light touch sensation in no dermatomal pattern/stocking distribution of bilateral lower legs and feet. Distal is more affected than proximal Deep Tendon Reflex & Clonus Assessment Deep Tendon Reflex Bilateral Achilles Deep Tendon Reflex 1+ Diminished Bilateral Patellar Deep Tendon Reflex 2+ Normal Ankle Clonus Bilateral Clonus Assessment Absent PT-OP-K Range of Motion Start: 03/15/19 17:18 Freq: Status: Active Protocol: Document 03/15/19 17:23 AW (Rec: 03/16/19 17:03 AW [id number]) Ankle and Foot Goniometric Range of Motion Ankle and Foot Right Active Testing Position Supine Dorsiflexion with Knee Flexed 5 Dorsiflexion with Knee Extended 10 Plantarflexion 30 Inversion 18 Eversion 20 Left Testing Position Supine Dorsiflexion with Knee Flexed 10 Dorsiflexion with Knee Extended 10 Plantarflexion 25 Inversion 30 Eversion 12 Ankle and Foot ROM Limitations ROM Limitations Soft Tissue Tightness Comments tight PF and restricted talar posterior glides Toe Range of Motion Toes ROM Limitations Comments Biltateral hallux valgus affected equally PT-OP-M Strength Start: 03/15/19 17:18 Freq: Status: Active Protocol: Document 03/15/19 17:23 AW (Rec: 03/16/19 17:03 AW [id number]) Knee Strength Knee Manual Muscle Testing Left Flexion (S2) 4 Good Extension (L3) 5 Normal Right Flexion (S2) 4 Good Extension (L3) 5 Normal Ankle/Foot Strength Ankle and Foot Manual Muscle Testing Right Dorsiflexion (L4) 4 Good Plantarflexion (S1) 4+ Good+ Inversion 4 Good Eversion (S1) 4 Good Left Dorsiflexion (L4) 4+ Good+ Plantarflexion (S1) 4+ Good+ Inversion 4 Good Eversion (S1) 4 Good Toe Strength Toe Manual Muscle Testing Right Great Toe Extension 4+ Good+ Left Great Toe Extension 4+ Good+ PT-OP-Q Treatments Start: 03/15/19 17:18 Freq: Status: Active Protocol: Document 04/05/19 13:05 AW (Rec: 04/05/19 13:16 AW [email or web address]) Cardio Equipment Recumbent Bicycle Duration (Minutes) 6 Resistance 5 Seat Position 11 Gym Equipment Shuttle Balance yellow chains Details EO/EC, narrow stance, modified tandem stance Reps/Duration 10 minutes Comments Attempted work on blue chains, but was too challenging for pt. Red chains provided just- right challenge with pt reporting she feels her ankles working a lot. Therapeutic Exercises Supine Exercises PF stretch Supine Exercise Name gastroc and hamstring stretch Side right Equipment Used gait belt Reps/Minutes 1 minute hold x 2 Comments instructed pt in stretch for home intrinic contraction Supine Exercise Name marble brain picker Side right Equipment Used green marbles Reps/Minutes 5 minutes Sitting Exercises 1 Sitting Exercise Name resisted DF, PF, inversion, eversion Side right Resistance level 2 band Equipment Used T band Reps/Minutes 2x10 reps each plane Standing Exercises 1 Standing Exercise Name single leg stance Side bilateral Equipment Used railing Reps/Minutes 2 Comments cued COG over MICAH foot triangle; Neuro Re-Education Treatment Balance Activities 1 Details single leg stance Surface firm Reps/Duration 3 min Comments at rail- challenging for more than a second or two- encouraged in spotting/using vision, using fingertip support on rail PT-OP-T Assessment and Plan Start: 03/15/19 17:18 Freq: Status: Active Protocol: Document 04/05/19 13:05 AW (Rec: 04/05/19 13:16 AW [email or web address]) Physical Therapy Assessment Goals Five Impairment pain with prolonged standing Short Term Goal (STG) Pt will volunteer 4-hour shift with 4/10 or less ankle/foot pain STG Duration 04/12/19 Correction Goal (LTG) Pt will volunteer 4-hour shift with 2/10 or less ankle/foot pain LTG Duration 05/10/19 Four Impairment Pt scores 42% on ABC Short Term Goal (STG) Pt will score 50% or greater on ABC for improved self- efficacy/confidence with mobility. STG Duration 04/12/19 Correction Goal (LTG) Pt will score 60% or greater on ABC for improved self- efficacy/confidence with mobility/reduced risk of falls LTG Duration 05/10/19 Three Impairment impaired DF AROM Short Term Goal (STG) Pt will improve right ankle dorsiflexion AROM with knee extended to 10 degrees or greater measured in supine STG Duration 04/12/19 Two Impairment DGI score of 19/24 - increased risk of falls Short Term Goal (STG) Pt will score 22/24 or greater on DGI for decreased fall risk STG Duration 04/12/19 Correction Goal (LTG) Pt will score 23/24 or greater on DGI for further reduction in fall risk LTG Duration 05/10/19 One Impairment pt has no HEP Short Term Goal (STG) Pt will be independent with HEP for support of services provided in clinic STG Duration 04/05/19 Correction Goal (LTG) Pt will be independent with maintenance HEP LTG Duration 05/10/19 Assessment Summary Assessment Reviewed HEP again to build pt 's confidence in performing while she is gone for the next month. Pt struggles with single-leg stance but shows good effort with attempts. She will benefit from continued therapy when she returns to improve ankle strength, ankle stability, and balance. Physical Therapy Plan Frequency and Duration Frequency of Treatment 1-2x/week Duration of Treatment 8 weeks Plan of Care Start Date 03/15/19 Plan of Care End Date 05/10/19 Therapeutic Interventions Therapeutic Interventions Balance Training,Coordination Training,Gait Training,Home Exercise Program,Joint Mobilizations,Manual Therapy, Neuromuscular Re-education, Orthotic/Prosthetic Management ,Patient/Caregiver Education, Self-Care/Home Management, Sensory Integration,Soft Tissue Mobilization,Taping, Therapeutic Activities, Therapeutic Exercises Modalities Cold Pack/Ice Massage,Electric Stimulation,Hot Packs, Ultrasound Next Visit Focus/Plan Next Note Type Treatment Note Next Visit Plan Continue and progress resisted ankle AROM. Add more seated and standing intrinsic foot ther ex. Manual therapy for improved DF and MTP extension.
--- NOTE | 2019-07-05 14:01 | PT.OPDS ---
Current Diagnoses Pain in unspecified foot (04/05/19) Unspecified abnormalities of gait and mobility (04/05/19) Unspecified lack of coordination (04/05/19) Abnormal posture (04/05/19) Visit Care Team Role Provider Type Richie Lamb MD Attending Provider Physician Primary Care Provider Specialty: Family Practice Address: [address] [place] [address], [facility] [place], [address] Email: [email or web address] Visit Number Visit Number 7 Discharge Summary PT-OP-B Current Condition Start: 03/15/19 17:18 Freq: Status: Active Protocol: Document 03/15/19 17:23 AW (Rec: 03/15/19 17:55 AW [email or web address]) Current Condition History of Current Condition Onset Date years Current Complaints right foot/ankle pain, decreased balance History of Current Condition Nevaeh complains of right foot and ankle pain that has been worsening over years. She reports remote sprain of right ankle while playing high school basketball but no other trauma. She sees Dr. Bowman for foot concerns including bilateral hallux valgus and bunions. She uses custom orthotics from Dr. Bowman which provide medial arch support and posting of the calcaneus. She reports her pain is helped with rest, heat, medicated cream, and Aleve or Tylenol. Standing long periods or prolonged activity increase her pain. Nevaeh also has concerns about balance. She reports two falls in the past two years - neither of which were injurious - but she does endorse multiple near-falls. Pt notes that she has increasingly relied on a trekking pole held in her right hand while walking on uneven ground such as in her garden and that she recently has need of a railing for climbing stairs. Prior Treatments and Tests Podiatry - ongoing with custom orthotics and foot care Treatment Goals Patient/Caregiver Goals Nevahe would like to have less foot/ankle pain and to feel more confident on uneven terrain. Prior Functional Status Baseline Function- ADL's Independent Baseline Function- Mobility Modified Independent Baseline Function- Recreation/Hobbies Able to walk ~1 mile without pain. Able to work in her garden without fear of falls Current Functional Impairments (Reported) Functional Limitations- Mobility/Gait Unable to walk a mile without pain. Functional Limitations- Work/School Limited in her ability to perform volunteer responsibilities which require long periods of standing. Functional Limitations- Recreation/ Difficulty with balance on Hobbies uneven terrain, limiting her ability to work in the garden PT-OP-C Subjective Start: 03/15/19 17:18 Freq: Status: Active Protocol: Document 04/05/19 13:05 AW (Rec: 04/05/19 13:16 AW [email or web address]) OP-PT Subjective Patient Comments Patient Comments I'm getting ready to go on a month-long trip and need to make sure I understand my HEP before I go. PT-OP-D Balance Start: 03/15/19 17:18 Freq: Status: Active Protocol: Document 03/15/19 17:23 AW (Rec: 03/15/19 17:55 AW [email or web address]) OP-PT Balance Assessment Sitting Balance Static Sitting Balance Ability Good Dynamic Sitting Balance Ability Good Standing Balance Static Standing Balance Ability Good Dynamic Standing Balance Ability Fair Device Used no AD Standing Balance Comments on Dynamic Gait Index, indicating increased risk of falls Burnham Fall Scale Copyright Permission PT-OP-F Manual Assessment Start: 03/15/19 17:18 Freq: Status: Active Protocol: Document 03/15/19 17:23 AW (Rec: 03/15/19 17:55 AW [email or web address]) Manual Assessments Joint Mobility Assessment Joint Mobility Assessment Restricted posterior talar glide bilaterally, right more affected than left Other Manual Assessments Other Manual Assessments Bilaterally, no point tenderness at met heads, navicular, tuberosity of 5th metatarsal, calcaneus, malleoli. PT-OP-G Mobility & Gait Start: 03/15/19 17:18 Freq: Status: Active Protocol: Document 03/15/19 17:23 AW (Rec: 03/15/19 17:55 AW [email or web address]) OP Gait Assessment Assistive Devices Assistive Device None Orthotic/Prosthetic Devices or Brace: Yes Gait Deviations General Gait Pattern Decreased Feet Clearance Comments Gait Comments Reduced arm swing, externally rotated hips, wide base of support, excessive pronation, reduced foot clearance, medial collapse of knees in stance phase. PT-OP-H Neuro Start: 03/15/19 17:18 Freq: Status: Active Protocol: Document 03/15/19 17:23 AW (Rec: 03/16/19 17:03 AW [id number]) Sensation Evaluation Gross Sensation Gross Sensation Left LE Impaired,Right LE Impaired Comments Summary Comments Diminished light touch sensation in no dermatomal pattern/stocking distribution of bilateral lower legs and feet. Distal is more affected than proximal Deep Tendon Reflex & Clonus Assessment Deep Tendon Reflex Bilateral Achilles Deep Tendon Reflex 1+ Diminished Bilateral Patellar Deep Tendon Reflex 2+ Normal Ankle Clonus Bilateral Clonus Assessment Absent PT-OP-K Range of Motion Start: 03/15/19 17:18 Freq: Status: Active Protocol: Document 03/15/19 17:23 AW (Rec: 03/16/19 17:03 AW [email or web address]) Ankle and Foot Goniometric Range of Motion Ankle and Foot Right Active Testing Position Supine Dorsiflexion with Knee Flexed 5 Dorsiflexion with Knee Extended 10 Plantarflexion 30 Inversion 18 Eversion 20 Left Testing Position Supine Dorsiflexion with Knee Flexed 10 Dorsiflexion with Knee Extended 10 Plantarflexion 25 Inversion 30 Eversion 12 Ankle and Foot ROM Limitations ROM Limitations Soft Tissue Tightness Comments tight PF and restricted talar posterior glides Toe Range of Motion Toes ROM Limitations Comments Biltateral hallux valgus affected equally PT-OP-M Strength Start: 03/15/19 17:18 Freq: Status: Active Protocol: Document 03/15/19 17:23 AW (Rec: 03/16/19 17:03 AW [id number]) Knee Strength Knee Manual Muscle Testing Left Flexion (S2) 4 Good Extension (L3) 5 Normal Right Flexion (S2) 4 Good Extension (L3) 5 Normal Ankle/Foot Strength Ankle and Foot Manual Muscle Testing Right Dorsiflexion (L4) 4 Good Plantarflexion (S1) 4+ Good+ Inversion 4 Good Eversion (S1) 4 Good Left Dorsiflexion (L4) 4+ Good+ Plantarflexion (S1) 4+ Good+ Inversion 4 Good Eversion (S1) 4 Good Toe Strength Toe Manual Muscle Testing Right Great Toe Extension 4+ Good+ Left Great Toe Extension 4+ Good+ PT-OP-T Assessment and Plan Start: 03/15/19 17:18 Freq: Status: Active Protocol: Document 07/05/19 13:58 AW (Rec: 07/11/19 14:00 AW [email or web address]) Physical Therapy Assessment Goals Five Impairment Balance Short Term Goal (STG) Patient will hold SLS on bilateral extremities for >15 seconds on stable surface in 3 weeks. STG Duration 3 weeks Mcc Goal (LTG) Patient will hold SLS on bilateral extremities for >15 seconds on unstable surface in 6 weeks. LTG Duration 6 weeks Four Impairment Strength Short Term Goal (STG) Patient will be able to stand up from chair with unilateral UE support from standard arm chair in 3 weeks. STG Duration 3 weeks Mcc Goal (LTG) Patient will be able to stand up from chair without UE support from standard arm chair in 6 weeks. LTG Duration 6 weeks Three Impairment Coordination Short Term Goal (STG) Patient will walk 20 feet independently with no LOB while in a distracted environment and turning head side to side in 2 weeks. STG Duration 2 weeks Magnetic Prospector Goal (LTG) Patient will walk 50 feet independently with no LOB while stepping over obstacles and on uneven surfaces in 4 weeks. LTG Duration 4 weeks Two Impairment BBS Magnetic Prospector Goal (LTG) patient will increase BBS to > 54 in 6 weeks. LTG Duration 6 weeks One Impairment pt has no HEP Short Term Goal (STG) Pt will be independent with HEP for support of services provided in clinic STG Duration 04/05/19 Magnetic Prospector Goal (LTG) Pt will be independent with maintenance HEP LTG Duration 05/10/19 Assessment Summary Assessment Pt did not attend PT >30 days, was unable to schedule due to unforseen conflicts and travel. Will discharge from this plan of care. Physical Therapy Plan Discharge Physical Therapy Discharge Reasons No Longer Attending PT Discharge Comments Pt was unable to attend to complete this plan of care.
== END 2019-11-08 13:16 ==
LOC: PHYS 12:00
PROVIDERS: PCP Family Medicine; Visit Provider Family Medicine
DX: R27.9 Unspecified lack of coordination (principal); M79.673 Pain in unspecified foot; R29.3 Abnormal posture; R26.9 Unspecified abnormalities of gait and mobility
CPT/HCPCS: 97110; 97112; 97140; 97161; 97530

== ENCOUNTER 2019-07-27 09:45 | Outpatient (RCR) | payer MEDICARE, OTHER, SELFPAY ==
--- NOTE | 2019-07-04 16:50 | PT.OTN ---
Current Diagnoses Unspecified lack of coordination (07/04/19) Physical Therapy Treatment Note PT-OP-A Visit Information Start: 07/04/19 15:43 Freq: Status: Active Protocol: Document 07/04/19 15:44 EG (Rec: 07/04/19 16:28 EG [email or web address]) Out-Patient Physical Therapy Visit Information Visit Information Visit Type Initial Evaluation Visit Start Time 10:30 Visit Stop Time 11:15 Total Visit Minutes 45 Visit Number 1 Number of PROJECT MANAGER RETAIL Visits 0 Evaluation Information Evaluation Date 07/04/19 PT-OP-B Current Condition Start: 07/04/19 15:43 Freq: Status: Active Protocol: Document 07/04/19 15:44 EG (Rec: 07/04/19 16:28 EG [email or web address]) Current Condition History of Current Condition Onset Date past year Current Complaints decreased balance and stability History of Current Condition Patient is an 79 year old female who [facility] complaint of having decreased stability and balance when looking up or walking in the dark. She has been to physical therapy in the past for 4-5 sessions but then she went to [place] for vacation and was unable to continue. She wants to begin again because she felt like the exercises and balance training helped her. She does have a current complaint of R knee pain and has a history of back pain and R ankle pain. She is planning on seeing the internal security manager to look at her bunions on her feet which have also caused an open sore on the second toe of her R foot. She currently wears orthotics while walking in the community and when ambulating at home. She does wear toe dividers at night at times to help air out her feet. The patient reports living with her daughter in the basement where she has a kitchen and a living room. She does not have to perform any stairs unless she wants to go upstairs and see her grandchildren. Patient reports that she enjoys working out in the yard, cleaning, doing housework, playing cards, and quilting. 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 Currently the patient would like to work on bending over in the garden and getting up and down from the ground with stability. She currently uses long pole in the garden to help her walk in the grass. Prior Treatments and Tests Past OP PT Future Testing and Treatments Planned Timber Management Specialist for Bunion and Open sore on R second toe Treatment Goals Patient/Caregiver Goals Would like to work out in yard more and work on bending over and getting up again Prior Functional Status Baseline Function- ADL's Independent Baseline Function- Mobility Independent Baseline Function- Gait Independent; use pole to ambulate in grass Baseline Function- Work/School Retired Baseline Function- Recreation/Hobbies Volunteer, Quilting, playing cards Current Functional Impairments (Reported) Functional Limitations- Recreation/ Has to be more cautious when Hobbies walking in a crowded environment at the [employer] Personal Factors Other Personal Factors That May Effect Arthritis Therapy/Recovery Prior back and knee surgery PT-OP-C Subjective Start: 07/04/19 15:43 Freq: Status: Active Protocol: Document 07/04/19 15:44 EG (Rec: 07/04/19 16:28 EG [email or web address]) Patient Questionnaires ABC- Activity Specific Balance Confidence Scale ABC Score 77.5 ABC Functional Impairment 20 to <40% Impaired (Score 61- 80) Dizziness Handicap Inventory DHI Score 38 DHI Functional Impairment 20 to 39% Impaired (Score 20- 39) OP-PT Pain Assessment Pain Assessment Grid Paper Pain Assessment Grid Completed Yes: 4 in the low back, R knee , and R foot PT-OP-D Balance Start: 07/04/19 15:43 Freq: Status: Active Protocol: Document 07/04/19 15:44 EG (Rec: 07/04/19 16:28 EG [email or web address]) Camacho Balance Assessment Evaluation Sitting to Standing Ability Independent w/Hands Unsupported Stance Safely- 2 minutes Sitting Unsupported, Feet on Floor Safely- 2 minutes Standing to Sitting Ability Assist, Control w/Hands Transfer Ability Safely, Minimal Hand Use Unsupported Stance- Eyes Closed Supervision, 10 seconds Unsupported Stance- Eyes Open Supervision to maintain Reaching Forward Standing Confidently, 10 inches Pick- Up Object From Floor Independent/Safe Look Behind Shoulder - Standing Shifts Weight Well Turning 360 Degrees Turns Bilateral, < 4 secs Unsupported Stance, Alternating Feet on (I)- 8 Steps in > 20 secs Stair Unsupported Tandem Stance Holds Tandem- 30 seconds Unilateral Leg Stance Lifts Leg/Holds 5-10 secs Total Score Camacho Total Score (out of 56 points) 49 PT-OP-E Functional Tests Start: 07/04/19 15:43 Freq: Status: Active Protocol: Document 07/04/19 15:44 EG (Rec: 07/04/19 16:28 EG [email or web address]) Functional Tests 30 Second Sit to Stand Test Score 7 Comments Used hands on armchair Timed Up and Go (TUG) Score 12 sec average Comments 13, 11, 12 sec TUG Impairment Rating 20 to <40% Impaired (Score 12- 13) PT-OP-G Mobility & Gait Start: 07/04/19 15:43 Freq: Status: Active Protocol: Document 07/04/19 15:44 EG (Rec: 07/04/19 16:28 EG [email or web address]) OP Gait Assessment Gait Gait Assistance Required: Independent Distance (Feet) 200 Able to Maintain Weight Bearing Status Yes During Gait Assistive Devices Assistive Device None Orthotic/Prosthetic Devices or Brace: No Gait Deviations General Gait Pattern Decreased Feet Clearance Factors Limiting Gait Function Factors Limiting Gait Function Decreased Activity Tolerance, Decreased Strength,Pain,Poor Balance PT-OP-M Strength Start: 07/04/19 15:43 Freq: Status: Active Protocol: Document 07/04/19 15:44 EG (Rec: 07/04/19 16:28 EG [email or web address]) Hip Strength Hip Manual Muscle Testing Right Flexion (L2) 4- Good- Left Flexion (L2) 4- Good- Knee Strength Knee Manual Muscle Testing Left Flexion (S2) 4 Good Extension (L3) 4 Good Right Flexion (S2) 4 Good Extension (L3) 4 Good Ankle/Foot Strength Ankle and Foot Manual Muscle Testing Right Dorsiflexion (L4) 4 Good Left Dorsiflexion (L4) 4 Good PT-OP-T Assessment and Plan Start: 07/04/19 15:43 Freq: Status: Active Protocol: Document 07/04/19 15:44 EG (Rec: 07/04/19 16:28 EG [email or web address]) Physical Therapy Assessment Rehab Potential Rehabilitation Potential Good Evaluation Complexity Number of Personal Factors/Comorbidities 1-2 Number of Body Systems Impaired 4 or More Clinical Presentation at Evaluation Stable Impairments Impairments Balance,Coordination, Functional Activities, Functional Mobility,Pain,ROM, Strength,Transfers Goals Five Impairment Balance Short Term Goal (STG) Patient will hold SLS on bilateral extremities for >15 seconds on stable surface in 3 weeks. STG Duration 3 weeks Home Care Administrator Goal (LTG) Patient will hold SLS on bilateral extremities for >15 seconds on unstable surface in 6 weeks. LTG Duration 6 weeks Four Impairment Strength Short Term Goal (STG) Patient will be able to stand up from chair with unilateral UE support from standard arm chair in 3 weeks. STG Duration 3 weeks Fdc Goal (LTG) Patient will be able to stand up from chair without UE support from standard arm chair in 6 weeks. LTG Duration 6 weeks Three Impairment Coordination Short Term Goal (STG) Patient will walk 20 feet independently with no LOB while in a distracted environment and turning head side to side in 2 weeks. STG Duration 2 weeks Home Care Administrator Goal (LTG) Patient will walk 50 feet independently with no LOB while stepping over obstacles and on uneven surfaces in 4 weeks. LTG Duration 4 weeks Two Impairment BBS Fdc Goal (LTG) patient will increase BBS to > 54 in 6 weeks. LTG Duration 6 weeks Assessment Summary Assessment Patient is an otherwise healthy 79 year old female who has not had any falls within the last 6 months and is concerned about balance and stability when on an uneven surface. Patient is below average for her age group on her 30 sec STS demonstrating decreased strength and limitation due to knee pain. Patient will benefit from LE strengthening to help with knee pain as well as ability to transfer Independently without the use of LE. Patient will also benefit from skilled therapies to increase function of vestibular and somatosensory systems to help maintain balance when vision is impaired to help increase safety on unstable surfaces and busy environments. Physical Therapy Plan Frequency and Duration Frequency of Treatment 2x/Week Duration of Treatment 8 weeks Plan of Care Start Date 07/04/19 Plan of Care End Date 08/29/19 Therapeutic Interventions Therapeutic Interventions Balance Training,Coordination Training,Gait Training,Home Exercise Program,Neuromuscular Re-education,Self-Care/Home Management,Therapeutic Activities,Therapeutic Exercises Next Visit Focus/Plan Next Note Type Treatment Note Next Visit Plan Work on STS endurance and strength. Try shuttle balance board. Work on stepping over hurdles. Standing hip extension and hip abduction. Balance and obstacle training as tolerated. Irma Silveira DPT, supervised all treatment performed by, and agreed with the plan of care, as performed by ROLAND Glaser.
--- NOTE | 2019-07-04 16:50 | PT.OPPOC ---
Physical, Occupational & Speech Therapy At [facility] Current Diagnoses Unspecified lack of coordination (07/04/19) Visit Care Team Role Provider Type Richie Lamb MD Attending Provider Physician Primary Care Provider Referring Provider Specialty: Family Practice Address: [address] [place] [address], [facility] [place], [address] Email: [email or web address] Plan Of Care PT-OP-T Assessment and Plan Start: 07/04/19 15:43 Freq: Status: Active Protocol: Document 07/04/19 15:44 EG (Rec: 07/04/19 16:28 EG [email or web address]) Physical Therapy Assessment Rehab Potential Rehabilitation Potential Good Evaluation Complexity Number of Personal Factors/Comorbidities 1-2 Number of Body Systems Impaired 4 or More Clinical Presentation at Evaluation Stable Impairments Impairments Balance,Coordination, Functional Activities, Functional Mobility,Pain,ROM, Strength,Transfers Goals Five Impairment Balance Short Term Goal (STG) Patient will hold SLS on bilateral extremities for >15 seconds on stable surface in 3 weeks. STG Duration 3 weeks Snf Goal (LTG) Patient will hold SLS on bilateral extremities for >15 seconds on unstable surface in 6 weeks. LTG Duration 6 weeks Four Impairment Strength Short Term Goal (STG) Patient will be able to stand up from chair with unilateral UE support from standard arm chair in 3 weeks. STG Duration 3 weeks Caisson Worker Goal (LTG) Patient will be able to stand up from chair without UE support from standard arm chair in 6 weeks. LTG Duration 6 weeks Three Impairment Coordination Short Term Goal (STG) Patient will walk 20 feet independently with no LOB while in a distracted environment and turning head side to side in 2 weeks. STG Duration 2 weeks Snf Goal (LTG) Patient will walk 50 feet independently with no LOB while stepping over obstacles and on uneven surfaces in 4 weeks. LTG Duration 4 weeks Two Impairment BBS Snf Goal (LTG) patient will increase BBS to > 54 in 6 weeks. LTG Duration 6 weeks Assessment Summary Assessment Patient is an otherwise healthy 79 year old female who has not had any falls within the last 6 months and is concerned about balance and stability when on an uneven surface. Patient is below average for her age group on her 30 sec STS demonstrating decreased strength and limitation due to knee pain. Patient will benefit from LE strengthening to help with knee pain as well as ability to transfer Independently without the use of LE. Patient will also benefit from skilled therapies to increase function of vestibular and somatosensory systems to help maintain balance when vision is impaired to help increase safety on unstable surfaces and busy environments. Physical Therapy Plan Frequency and Duration Frequency of Treatment 2x/Week Duration of Treatment 8 weeks Plan of Care Start Date 07/04/19 Plan of Care End Date 08/29/19 Therapeutic Interventions Therapeutic Interventions Balance Training,Coordination Training,Gait Training,Home Exercise Program,Neuromuscular Re-education,Self-Care/Home Management,Therapeutic Activities,Therapeutic Exercises Next Visit Focus/Plan Next Note Type Treatment Note Next Visit Plan Work on STS endurance and strength. Try shuttle balance board. Work on stepping over hurdles. Standing hip extension and hip abduction. Balance and obstacle training as tolerated. Plan of Care Dates Plan of Care Start Date 07/04/19 Plan of Care End Date 08/29/19 IIrma DPT, supervised all treatment performed by, and agreed with the plan of care, as performed by ROLAND Glaser. Electronically Signed by: Irma Reina, PT 07/04/19 [id number] Please Sign and Return: I have reviewed this Plan of Care and certify that the skilled therapy services above are required to meet the patient?s needs. Physician Signature Date Printed Name and Credentials Clinical Instructor Signature Printed Name and Credentials
--- NOTE | 2019-07-06 11:13 | PT.OTN ---
Current Diagnoses Unspecified lack of coordination (07/06/19) Physical Therapy Treatment Note PT-OP-A Visit Information Start: 07/04/19 15:43 Freq: Status: Active Protocol: Document 07/04/19 15:44 EG (Rec: 07/04/19 16:28 EG [email or web address]) Out-Patient Physical Therapy Visit Information Visit Information Visit Type Initial Evaluation Visit Start Time 10:30 Visit Stop Time 11:15 Total Visit Minutes 45 Visit Number 1 Number of RUBBER MOLD MAKER Visits 0 Evaluation Information Evaluation Date 07/04/19 PT-OP-B Current Condition Start: 07/04/19 15:43 Freq: Status: Active Protocol: Document 07/04/19 15:44 EG (Rec: 07/04/19 16:28 EG [email or web address]) Current Condition History of Current Condition Onset Date past year Current Complaints decreased balance and stability History of Current Condition Patient is an 79 year old female who reports to physical therapy with the [facility] complaint of having decreased stability and balance when looking up or walking in the dark. She has been to physical therapy in the past for 4-5 sessions but then she went to [place] for vacation and was unable to continue. She wants to begin again because she felt like the exercises and balance training helped her. She does have a current complaint of R knee pain and has a history of back pain and R ankle pain. She is planning on seeing the coil machine supervisor to look at her bunions on her feet which have also caused an open sore on the second toe of her R foot. She currently wears orthotics while walking in the community and when ambulating at home. She does wear toe dividers at night at times to help air out her feet. The patient reports living with her daughter in the basement where she has a kitchen and a living room. She does not have to perform any stairs unless she wants to go upstairs and see her grandchildren. Patient reports that she enjoys working out in the yard, cleaning, doing housework, playing cards, and quilting. 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 Currently the patient would like to work on bending over in the garden and getting up and down from the ground with stability. She currently uses long pole in the garden to help her walk in the grass. Prior Treatments and Tests Past OP PT Future Testing and Treatments Planned Demand Planning Analyst for Bunion and Open sore on R second toe Treatment Goals Patient/Caregiver Goals Would like to work out in yard more and work on bending over and getting up again Prior Functional Status Baseline Function- ADL's Independent Baseline Function- Mobility Independent Baseline Function- Gait Independent; use pole to ambulate in grass Baseline Function- Work/School Retired Baseline Function- Recreation/Hobbies Volunteer, Quilting, playing cards Current Functional Impairments (Reported) Functional Limitations- Recreation/ Has to be more cautious when Hobbies walking in a crowded environment at the [employer] Personal Factors Other Personal Factors That May Effect Arthritis Therapy/Recovery Prior back and knee surgery PT-OP-C Subjective Start: 07/04/19 15:43 Freq: Status: Active Protocol: Document 07/06/19 10:30 KS (Rec: 07/06/19 12:30 KS [email or web address]) OP-PT Subjective Patient Comments Patient Comments Pt reports that she is feeling about the same and continues to have issues with her balance, especially when in a dark environment. Patient Reported Progress Same PT-OP-D Balance Start: 07/04/19 15:43 Freq: Status: Active Protocol: Document 07/04/19 15:44 EG (Rec: 07/04/19 16:28 EG [email or web address]) Camacho Balance Assessment Evaluation Sitting to Standing Ability Independent w/Hands Unsupported Stance Safely- 2 minutes Sitting Unsupported, Feet on Floor Safely- 2 minutes Standing to Sitting Ability Assist, Control w/Hands Transfer Ability Safely, Minimal Hand Use Unsupported Stance- Eyes Closed Supervision, 10 seconds Unsupported Stance- Eyes Open Supervision to maintain Reaching Forward Standing Confidently, 10 inches Pick- Up Object From Floor Independent/Safe Look Behind Shoulder - Standing Shifts Weight Well Turning 360 Degrees Turns Bilateral, < 4 secs Unsupported Stance, Alternating Feet on (I)- 8 Steps in > 20 secs Stair Unsupported Tandem Stance Holds Tandem- 30 seconds Unilateral Leg Stance Lifts Leg/Holds 5-10 secs Total Score Camacho Total Score (out of 56 points) 49 PT-OP-E Functional Tests Start: 07/04/19 15:43 Freq: Status: Active Protocol: Document 07/04/19 15:44 EG (Rec: 07/04/19 16:28 EG [email or web address]) Functional Tests 30 Second Sit to Stand Test Score 7 Comments Used hands on armchair Timed Up and Go (TUG) Score 12 sec average Comments 13, 11, 12 sec TUG Impairment Rating 20 to <40% Impaired (Score 12- 13) PT-OP-G Mobility & Gait Start: 07/04/19 15:43 Freq: Status: Active Protocol: Document 07/04/19 15:44 EG (Rec: 07/04/19 16:28 EG [email or web address]) OP Gait Assessment Gait Gait Assistance Required: Independent Distance (Feet) 200 Able to Maintain Weight Bearing Status Yes During Gait Assistive Devices Assistive Device None Orthotic/Prosthetic Devices or Brace: No Gait Deviations General Gait Pattern Decreased Feet Clearance Factors Limiting Gait Function Factors Limiting Gait Function Decreased Activity Tolerance, Decreased Strength,Pain,Poor Balance PT-OP-M Strength Start: 07/04/19 15:43 Freq: Status: Active Protocol: Document 07/04/19 15:44 EG (Rec: 07/04/19 16:28 EG [email or web address]) Hip Strength Hip Manual Muscle Testing Right Flexion (L2) 4- Good- Left Flexion (L2) 4- Good- Knee Strength Knee Manual Muscle Testing Left Flexion (S2) 4 Good Extension (L3) 4 Good Right Flexion (S2) 4 Good Extension (L3) 4 Good Ankle/Foot Strength Ankle and Foot Manual Muscle Testing Right Dorsiflexion (L4) 4 Good Left Dorsiflexion (L4) 4 Good PT-OP-Q Treatments Start: 07/04/19 15:43 Freq: Status: Active Protocol: Document 07/06/19 10:30 KS (Rec: 07/06/19 12:30 KS [email or web address]) Cardio Equipment Recumbent Stepper (Sci-Fit) Duration (Minutes) 6 Resistance 1.7 Gym Equipment Shuttle Balance Blue chains Details WBOS, NBOS Reps/Duration 90 sec each Therapeutic Exercises Sitting Exercises 3 Sitting Exercise Name Hip abduction Side bilateral Resistance L 4 tband Reps/Minutes 3X10 Comments 3 sec hold 2 Sitting Exercise Name Seated adduction Side bilateral Equipment Used ball Reps/Minutes 3x10 Comments 5 sec hold 1 Sitting Exercise Name Seated marching Side bilateral Reps/Minutes 2x10 Comments 3 sec hold at top Standing Exercises [address] Exercise Name [address] hip Side bilateral Equipment Used // bars Reps/Minutes 1x10 Comments Flexion,abduction, extension 4 Standing Exercise Name Mini squats Equipment Used // bars Reps/Minutes 2x10 Neuro Re-Education Treatment Balance Activities 2 Details SLS Surface foam Reps/Duration 3x30 sec Comments L/R, up and down head turns 1 Details Tandem stance Surface foam Reps/Duration 3x30 sec Comments L/R, up and down head turns PT-OP-T Assessment and Plan Start: 07/04/19 15:43 Freq: Status: Active Protocol: Document 07/06/19 10:30 KS (Rec: 07/06/19 12:30 KS [email or web address]) Physical Therapy Assessment Rehab Potential Rehabilitation Potential Good Impairments Impairments Balance,Coordination, Functional Activities, Functional Mobility,Pain,ROM, Strength,Transfers Goals Five Impairment Balance Short Term Goal (STG) Patient will hold SLS on bilateral extremities for >15 seconds on stable surface in 3 weeks. STG Duration 3 weeks Assisted Goal (LTG) Patient will hold SLS on bilateral extremities for >15 seconds on unstable surface in 6 weeks. LTG Duration 6 weeks Four Impairment Strength Short Term Goal (STG) Patient will be able to stand up from chair with unilateral UE support from standard arm chair in 3 weeks. STG Duration 3 weeks Assisted Goal (LTG) Patient will be able to stand up from chair without UE support from standard arm chair in 6 weeks. LTG Duration 6 weeks Three Impairment Coordination Short Term Goal (STG) Patient will walk 20 feet independently with no LOB while in a distracted environment and turning head side to side in 2 weeks. STG Duration 2 weeks Assisted Goal (LTG) Patient will walk 50 feet independently with no LOB while stepping over obstacles and on uneven surfaces in 4 weeks. LTG Duration 4 weeks Two Impairment BBS Ecommerce Project Manager Goal (LTG) patient will increase BBS to > 54 in 6 weeks. LTG Duration 6 weeks One Impairment pt has no HEP Short Term Goal (STG) Pt will be independent with HEP for support of services provided in clinic STG Duration 04/05/19 Assisted Goal (LTG) Pt will be independent with maintenance HEP LTG Duration 05/10/19 Assessment Summary Assessment Pt responded well to added LE strengthening and balance exercises. LE exercises of proximal hip, abductors, adductors, quads and glutes performed to increase patients strength and stability as well as decreased R knee pain. SLS, tandem stance performed on blue foam w/ head turns to improve pts dynamic balance, shuttle balance to increase balance and ankle stability. Pt requires at minimum 2 fingers placed on //bars or shuttle balance handles to remain balanced throughout exercises, but was able to tolerate 3x30 sec of each exercise w/ appropriate level of fatigue. Pt will benefit from continued LE strengthening to improve balance and increase level of function. Physical Therapy Plan Frequency and Duration Frequency of Treatment 2x/Week Duration of Treatment 8 weeks Plan of Care Start Date 07/04/19 Plan of Care End Date 08/29/19 Therapeutic Interventions Therapeutic Interventions Balance Training,Coordination Training,Gait Training,Home Exercise Program,Neuromuscular Re-education,Self-Care/Home Management,Therapeutic Activities,Therapeutic Exercises Next Visit Focus/Plan Next Note Type Treatment Note Next Visit Plan Continue working on balance exercises, hurdles, uneven surfaces. LE strengthening.
--- NOTE | 2019-07-11 17:11 | PT.OTN ---
Current Diagnoses Unspecified lack of coordination (07/11/19) Physical Therapy Treatment Note PT-OP-A Visit Information Start: 07/04/19 15:43 Freq: Status: Active Protocol: Document 07/11/19 14:30 EG (Rec: 07/11/19 17:54 EG [email or web address]) Out-Patient Physical Therapy Visit Information Visit Information Visit Type Treatment Note Visit Start Time 14:30 Visit Stop Time 15:15 Total Visit Minutes 45 Visit Number 3 Number of SAFETY DEPOSIT CLERK Visits 0 PT-OP-B Current Condition Start: 07/04/19 15:43 Freq: Status: Active Protocol: Document 07/04/19 15:44 EG (Rec: 07/04/19 16:28 EG [email or web address]) Current Condition History of Current Condition Onset Date past year Current Complaints decreased balance and stability History of Current Condition Patient is an 79 year old female who reports to physical therapy with the cheif complaint of having decreased stability and balance when looking up or walking in the dark. She has been to physical therapy in the past for 4-5 sessions but then she went to [place] for vacation and was unable to continue. She wants to begin again because she felt like the exercises and balance training helped her. She does have a current complaint of R knee pain and has a history of back pain and R ankle pain. She is planning on seeing the database analyst to look at her bunions on her feet which have also caused an open sore on the second toe of her R foot. She currently wears orthotics while walking in the community and when ambulating at home. She does wear toe dividers at night at times to help air out her feet. The patient reports living with her daughter in the basement where she has a kitchen and a living room. She does not have to perform any stairs unless she wants to go upstairs and see her grandchildren. Patient reports that she enjoys working out in the yard, cleaning, doing housework, playing cards, and quilting. 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. Currently the patient would like to work on bending over in the garden and getting up and down from the ground with stability. She currently uses long pole in the garden to help her walk in the grass. Prior Treatments and Tests Past OP PT Future Testing and Treatments Planned Star Route Mail Driver for Bunion and Open sore on R second toe Treatment Goals Patient/Caregiver Goals Would like to work out in yard more and work on bending over and getting up again Prior Functional Status Baseline Function- ADL's Independent Baseline Function- Mobility Independent Baseline Function- Gait Independent; use pole to ambulate in grass Baseline Function- Work/School Retired Baseline Function- Recreation/Hobbies Volunteer, Quilting, playing cards Current Functional Impairments (Reported) Functional Limitations- Recreation/ Has to be more cautious when Hobbies walking in a crowded environment at the [employer] Personal Factors Other Personal Factors That May Effect Arthritis Therapy/Recovery Prior back and knee surgery PT-OP-C Subjective Start: 07/04/19 15:43 Freq: Status: Active Protocol: Document 07/11/19 14:30 EG (Rec: 07/11/19 18:57 EG [email or web address]) OP-PT Subjective Patient Comments Patient Comments Patient reported that she was feeling about the same. She brought the exercises she used to do today to go over them. Patient Reported Progress Same PT-OP-D Balance Start: 07/04/19 15:43 Freq: Status: Active Protocol: Document 07/04/19 15:44 EG (Rec: 07/04/19 16:28 EG [email or web address]) Camacho Balance Assessment Evaluation Sitting to Standing Ability Independent w/Hands Unsupported Stance Safely- 2 minutes Sitting Unsupported, Feet on Floor Safely- 2 minutes Standing to Sitting Ability Assist, Control w/Hands Transfer Ability Safely, Minimal Hand Use Unsupported Stance- Eyes Closed Supervision, 10 seconds Unsupported Stance- Eyes Open Supervision to maintain Reaching Forward Standing Confidently, 10 inches Pick- Up Object From Floor Independent/Safe Look Behind Shoulder - Standing Shifts Weight Well Turning 360 Degrees Turns Bilateral, < 4 secs Unsupported Stance, Alternating Feet on (I)- 8 Steps in > 20 secs Stair Unsupported Tandem Stance Holds Tandem- 30 seconds Unilateral Leg Stance Lifts Leg/Holds 5-10 secs Total Score Camacho Total Score (out of 56 points) 49 PT-OP-E Functional Tests Start: 07/04/19 15:43 Freq: Status: Active Protocol: Document 07/04/19 15:44 EG (Rec: 07/04/19 16:28 EG [email or web address]) Functional Tests 30 Second Sit to Stand Test Score 7 Comments Used hands on armchair Timed Up and Go (TUG) Score 12 sec average Comments 13, 11, 12 sec TUG Impairment Rating 20 to <40% Impaired (Score 12- 13) PT-OP-G Mobility & Gait Start: 07/04/19 15:43 Freq: Status: Active Protocol: Document 07/04/19 15:44 EG (Rec: 07/04/19 16:28 EG [email or web address]) OP Gait Assessment Gait Gait Assistance Required: Independent Distance (Feet) 200 Able to Maintain Weight Bearing Status Yes During Gait Assistive Devices Assistive Device None Orthotic/Prosthetic Devices or Brace: No Gait Deviations General Gait Pattern Decreased Feet Clearance Factors Limiting Gait Function Factors Limiting Gait Function Decreased Activity Tolerance, Decreased Strength,Pain,Poor Balance PT-OP-M Strength Start: 07/04/19 15:43 Freq: Status: Active Protocol: Document 07/04/19 15:44 EG (Rec: 07/04/19 16:28 EG [email or web address]) Hip Strength Hip Manual Muscle Testing Right Flexion (L2) 4- Good- Left Flexion (L2) 4- Good- Knee Strength Knee Manual Muscle Testing Left Flexion (S2) 4 Good Extension (L3) 4 Good Right Flexion (S2) 4 Good Extension (L3) 4 Good Ankle/Foot Strength Ankle and Foot Manual Muscle Testing Right Dorsiflexion (L4) 4 Good Left Dorsiflexion (L4) 4 Good PT-OP-Q Treatments Start: 07/04/19 15:43 Freq: Status: Active Protocol: Document 07/11/19 14:30 EG (Rec: 07/11/19 18:57 EG [email or web address]) Therapeutic Activity Therapeutic Activity Sideways walking Name Sideways walking Reps/Minutes 3x back and forth Comments used L2 theraband and wall rail for support - verbal cues to keep toes forward Sit to Stand Name Sit to Stand Reps/Minutes 10x Comments R Knee pain with transfers - used armrail for support. Educated on using armchair rail as she lowers down to seat. Neuro Re-Education Treatment Balance Activities Hurdles Details Hurdles Fwd/bkwd/sideways Surface carpet Equipment 3 hurdles, wall rail Reps/Duration 20 min; 3x each Comments 1 hand on rail as well as gait belt for assistance for balance 2 Details Feet together and tandem stance with head turns Reps/Duration 2x1 min each Comments horizontal and vertical head turns while balancing - slight LOB while turning vertically with independent recovery PT-OP-T Assessment and Plan Start: 07/04/19 15:43 Freq: Status: Active Protocol: Document 07/11/19 14:30 EG (Rec: 07/11/19 18:57 EG [email or web address]) Physical Therapy Assessment Assessment Summary Assessment Patient tolerated neuromuscular reeducation well today. She currently does have decreased balance and stability with head turns when standing with a decreased base of support and this should be continually worked on to help train the balance with decreased visual support. Patient did well with stepping over obstacles but has trouble standing independently on 1 leg while stepping over the laith. This should be continually practiced as well as SLS on unstable surfaces to help train balance. Patient should continue to work on posterior lateral hip strengthening as well to encourage stability in 1-legged movements. Physical Therapy Plan Next Visit Focus/Plan Next Note Type Treatment Note Next Visit Plan Continue working on balance exercises, hurdles, uneven surfaces. LE strengthening.
--- NOTE | 2019-07-13 13:41 | PT.OTN ---
Current Diagnoses Unspecified lack of coordination (07/13/19) Physical Therapy Treatment Note PT-OP-A Visit Information Start: 07/04/19 15:43 Freq: Status: Active Protocol: Document 07/13/19 12:59 KS (Rec: 07/13/19 14:54 KS [email or web address]) Out-Patient Physical Therapy Visit Information Visit Information Visit Type Treatment Note Visit Start Time 12:59 Visit Stop Time 13:41 Total Visit Minutes 42 Visit Number 4 Number of CAR CHANGER Visits 1 PT-OP-B Current Condition Start: 07/04/19 15:43 Freq: Status: Active Protocol: Document 07/04/19 15:44 EG (Rec: 07/04/19 16:28 EG [email or web address]) Current Condition History of Current Condition Onset Date past year Current Complaints decreased balance and stability History of Current Condition Patient is an 79 year old female who reports to physical therapy with the cheif complaint of having decreased stability and balance when looking up or walking in the dark. She has been to physical therapy in the past for 4-5 sessions but then she went to [place] for vacation and was unable to continue. She wants to begin again because she felt like the exercises and balance training helped her. She does have a current complaint of R knee pain and has a history of back pain and R ankle pain. She is planning on seeing the manager spring to look at her bunions on her feet which have also caused an open sore on the second toe of her R foot. She currently wears orthotics while walking in the community and when ambulating at home. She does wear toe dividers at night at times to help air out her feet. The patient reports living with her daughter in the basement where she has a kitchen and a living room. She does not have to perform any stairs unless she wants to go upstairs and see her grandchildren. Patient reports that she enjoys working out in the yard, cleaning, doing housework, playing cards, and quilting. 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 Currently the patient would like to work on bending over in the garden and getting up and down from the ground with stability. She currently uses long pole in the garden to help her walk in the grass. Prior Treatments and Tests Past OP PT Future Testing and Treatments Planned Medical Lead for Bunion and Open sore on R second toe Treatment Goals Patient/Caregiver Goals Would like to work out in yard more and work on bending over and getting up again Prior Functional Status Baseline Function- ADL's Independent Baseline Function- Mobility Independent Baseline Function- Gait Independent; use pole to ambulate in grass Baseline Function- Work/School Retired Baseline Function- Recreation/Hobbies Volunteer, Quilting, playing cards Current Functional Impairments (Reported) Functional Limitations- Recreation/ Has to be more cautious when Hobbies walking in a crowded environment at the [employer] Personal Factors Other Personal Factors That May Effect Arthritis Therapy/Recovery Prior back and knee surgery PT-OP-C Subjective Start: 07/04/19 15:43 Freq: Status: Active Protocol: Document 07/13/19 12:59 KS (Rec: 07/13/19 14:54 KS [email or web address]) OP-PT Subjective Patient Comments Patient Comments Pt reported feeling about the same overall, but noted some muscle soreness following last treatment. Patient Reported Progress Same PT-OP-D Balance Start: 07/04/19 15:43 Freq: Status: Active Protocol: Document 07/04/19 15:44 EG (Rec: 07/04/19 16:28 EG [email or web address]) Camacho Balance Assessment Evaluation Sitting to Standing Ability Independent w/Hands Unsupported Stance Safely- 2 minutes Sitting Unsupported, Feet on Floor Safely- 2 minutes Standing to Sitting Ability Assist, Control w/Hands Transfer Ability Safely, Minimal Hand Use Unsupported Stance- Eyes Closed Supervision, 10 seconds Unsupported Stance- Eyes Open Supervision to maintain Reaching Forward Standing Confidently, 10 inches Pick- Up Object From Floor Independent/Safe Look Behind Shoulder - Standing Shifts Weight Well Turning 360 Degrees Turns Bilateral, < 4 secs Unsupported Stance, Alternating Feet on (I)- 8 Steps in > 20 secs Stair Unsupported Tandem Stance Holds Tandem- 30 seconds Unilateral Leg Stance Lifts Leg/Holds 5-10 secs Total Score Camacho Total Score (out of 56 points) 49 PT-OP-E Functional Tests Start: 07/04/19 15:43 Freq: Status: Active Protocol: Document 07/04/19 15:44 EG (Rec: 07/04/19 16:28 EG [email or web address]) Functional Tests 30 Second Sit to Stand Test Score 7 Comments Used hands on armchair Timed Up and Go (TUG) Score 12 sec average Comments 13, 11, 12 sec TUG Impairment Rating 20 to <40% Impaired (Score 12- 13) PT-OP-G Mobility & Gait Start: 07/04/19 15:43 Freq: Status: Active Protocol: Document 07/04/19 15:44 EG (Rec: 07/04/19 16:28 EG [email or web address]) OP Gait Assessment Gait Gait Assistance Required: Independent Distance (Feet) 200 Able to Maintain Weight Bearing Status Yes During Gait Assistive Devices Assistive Device None Orthotic/Prosthetic Devices or Brace: No Gait Deviations General Gait Pattern Decreased Feet Clearance Factors Limiting Gait Function Factors Limiting Gait Function Decreased Activity Tolerance, Decreased Strength,Pain,Poor Balance PT-OP-M Strength Start: 07/04/19 15:43 Freq: Status: Active Protocol: Document 07/04/19 15:44 EG (Rec: 07/04/19 16:28 EG [email or web address]) Hip Strength Hip Manual Muscle Testing Right Flexion (L2) 4- Good- Left Flexion (L2) 4- Good- Knee Strength Knee Manual Muscle Testing Left Flexion (S2) 4 Good Extension (L3) 4 Good Right Flexion (S2) 4 Good Extension (L3) 4 Good Ankle/Foot Strength Ankle and Foot Manual Muscle Testing Right Dorsiflexion (L4) 4 Good Left Dorsiflexion (L4) 4 Good PT-OP-Q Treatments Start: 07/04/19 15:43 Freq: Status: Active Protocol: Document 07/13/19 12:59 KS (Rec: 07/13/19 14:54 KS [email or web address]) Cardio Equipment Recumbent Stepper (Sci-Fit) Duration (Minutes) 6 Resistance 1.7 Therapeutic Exercises Sitting Exercises Hamstring curls Sitting Exercise Name Hamstring curls Side bilateral Resistance level 3 tband Reps/Minutes 2x10 Comments cues for controlled movement 3 Sitting Exercise Name Hip abduction Side bilateral Resistance L 4 tband Reps/Minutes 3X10 Comments 3 sec hold Standing Exercises step down Standing Exercise Name Lateral step down/up Side bilateral Equipment Used 4 inch step Reps/Minutes 10 Comments toe tap to ground [address] hip Side bilateral Equipment Used // bars Reps/Minutes 1x10 Comments Flexion,abduction, extension 4 Standing Exercise Name Mini squats Equipment Used // bars Reps/Minutes 2x10 3 Standing Exercise Name Calf raises Side bilateral Reps/Minutes 2x10 Comments heel raises, toe lifts 2 Standing Exercise Name Sit to stands Side bilateral Equipment Used //bars Reps/Minutes 1x10 Comments Pt required //bars to pull up and lower down Neuro Re-Education Treatment Balance Activities 2 Details SLS, tandem stance Surface foam Reps/Duration 3x30 sec Comments // bars for balance cues for core stabilization PT-OP-T Assessment and Plan Start: 07/04/19 15:43 Freq: Status: Active Protocol: Document 07/13/19 12:59 KS (Rec: 07/13/19 14:54 KS [email or web address]) Physical Therapy Assessment Rehab Potential Rehabilitation Potential Good Evaluation Complexity Number of Personal Factors/Comorbidities 1-2 Number of Body Systems Impaired 4 or More Clinical Presentation at Evaluation Stable Impairments Impairments Balance,Coordination, Functional Activities, Functional Mobility,Pain,ROM, Strength,Transfers Other Concerns Fall Risk DGI indicates increased risk of falls Goals Five Impairment Balance Short Term Goal (STG) Patient will hold SLS on bilateral extremities for >15 seconds on stable surface in 3 weeks. STG Duration 3 weeks Treatment Plant Operator Goal (LTG) Patient will hold SLS on bilateral extremities for >15 seconds on unstable surface in 6 weeks. LTG Duration 6 weeks Four Impairment Strength Short Term Goal (STG) Patient will be able to stand up from chair with unilateral UE support from standard arm chair in 3 weeks. STG Duration 3 weeks [facility] Goal (LTG) Patient will be able to stand up from chair without UE support from standard arm chair in 6 weeks. LTG Duration 6 weeks Three Impairment Coordination Short Term Goal (STG) Patient will walk 20 feet independently with no LOB while in a distracted environment and turning head side to side in 2 weeks. STG Duration 2 weeks Treatment Plant Operator Goal (LTG) Patient will walk 50 feet independently with no LOB while stepping over obstacles and on uneven surfaces in 4 weeks. LTG Duration 4 weeks Two Impairment BBS [facility] Goal (LTG) patient will increase BBS to > 54 in 6 weeks. LTG Duration 6 weeks One Impairment pt has no HEP Short Term Goal (STG) Pt will be independent with HEP for support of services provided in clinic STG Duration 04/05/19 [facility] Goal (LTG) Pt will be independent with maintenance HEP LTG Duration 05/10/19 Assessment Summary Assessment Patient tolerated LE strengthening and balance/ neuromuscular re-ed well today . She required //bars for support during balance exercises and had slight posterior LOB, but was able to recover. Cues for forward toes during side steps and abduction during 3 way hip. Pt reported increase in R knee pain when performing sit to stands and mini squats. During sit to stands, pt required support frok // bars to pull up to standing and slowly lower down to seated position. Pt will benefit from continued post lat hip strengthening, core stabilization, and neuro re ed to assess balance deficits. Physical Therapy Plan Frequency and Duration Frequency of Treatment 2x/Week Duration of Treatment 8 weeks Therapeutic Interventions Therapeutic Interventions Balance Training,Coordination Training,Gait Training,Home Exercise Program,Neuromuscular Re-education,Self-Care/Home Management,Therapeutic Activities,Therapeutic Exercises Discharge Physical Therapy Discharge Reasons No Longer Attending PT Discharge Comments Pt was unable to attend to complete this plan of care. Next Visit Focus/Plan Next Note Type Treatment Note Next Visit Plan Continue working on balance exercises, hurdles, uneven surfaces. LE strengthening. Core stabilization/TA activation
--- NOTE | 2019-07-18 15:47 | PT.OTN ---
Current Diagnoses Unspecified lack of coordination (07/18/19) Physical Therapy Treatment Note PT-OP-A Visit Information Start: 07/04/19 15:43 Freq: Status: Active Protocol: Document 07/18/19 10:30 EG (Rec: 07/18/19 15:07 EG [email or web address]) Out-Patient Physical Therapy Visit Information Visit Information Visit Type Treatment Note Visit Start Time 10:30 Visit Stop Time 11:15 Total Visit Minutes 45 Visit Number 5 Number of RECONCILIATION ANALYST Visits 0 PT-OP-B Current Condition Start: 07/04/19 15:43 Freq: Status: Active Protocol: Document 07/04/19 15:44 EG (Rec: 07/04/19 16:28 EG [email or web address]) Current Condition History of Current Condition Onset Date past year Current Complaints decreased balance and stability History of Current Condition Patient is an 79 year old female who reports to physical therapy with the cheif complaint of having decreased stability and balance when looking up or walking in the dark. She has been to physical therapy in the past for 4-5 sessions but then she went to [place] for vacation and was unable to continue. She wants to begin again because she felt like the exercises and balance training helped her. She does have a current complaint of R knee pain and has a history of back pain and R ankle pain. She is planning on seeing the head batcher to look at her bunions on her feet which have also caused an open sore on the second toe of her R foot. She currently wears orthotics while walking in the community and when ambulating at home. She does wear toe dividers at night at times to help air out her feet. The patient reports living with her daughter in the basement where she has a kitchen and a living room. She does not have to perform any stairs unless she wants to go upstairs and see her grandchildren. Patient reports that she enjoys working out in the yard, cleaning, doing housework, playing cards, and quilting. 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 Currently the patient would like to work on bending over in the garden and getting up and down from the ground with stability. She currently uses long pole in the garden to help her walk in the grass. Prior Treatments and Tests Past OP PT Future Testing and Treatments Planned Non Profit Director for Bunion and Open sore on R second toe Treatment Goals Patient/Caregiver Goals Would like to work out in yard more and work on bending over and getting up again Prior Functional Status Baseline Function- ADL's Independent Baseline Function- Mobility Independent Baseline Function- Gait Independent; use pole to ambulate in grass Baseline Function- Work/School Retired Baseline Function- Recreation/Hobbies Volunteer, Quilting, playing cards Current Functional Impairments (Reported) Functional Limitations- Recreation/ Has to be more cautious when Hobbies walking in a crowded environment at the [employer] Personal Factors Other Personal Factors That May Effect Arthritis Therapy/Recovery Prior back and knee surgery PT-OP-C Subjective Start: 07/04/19 15:43 Freq: Status: Active Protocol: Document 07/18/19 10:30 EG (Rec: 07/18/19 15:07 EG [email or web address]) OP-PT Subjective Patient Comments Patient Comments Patient reported that she was slightly sore after last visit but was not in pain. Patient Reported Progress Same PT-OP-D Balance Start: 07/04/19 15:43 Freq: Status: Active Protocol: Document 07/04/19 15:44 EG (Rec: 07/04/19 16:28 EG [email or web address]) Camacho Balance Assessment Evaluation Sitting to Standing Ability Independent w/Hands Unsupported Stance Safely- 2 minutes Sitting Unsupported, Feet on Floor Safely- 2 minutes Standing to Sitting Ability Assist, Control w/Hands Transfer Ability Safely, Minimal Hand Use Unsupported Stance- Eyes Closed Supervision, 10 seconds Unsupported Stance- Eyes Open Supervision to maintain Reaching Forward Standing Confidently, 10 inches Pick- Up Object From Floor Independent/Safe Look Behind Shoulder - Standing Shifts Weight Well Turning 360 Degrees Turns Bilateral, < 4 secs Unsupported Stance, Alternating Feet on (I)- 8 Steps in > 20 secs Stair Unsupported Tandem Stance Holds Tandem- 30 seconds Unilateral Leg Stance Lifts Leg/Holds 5-10 secs Total Score Camacho Total Score (out of 56 points) 49 PT-OP-E Functional Tests Start: 07/04/19 15:43 Freq: Status: Active Protocol: Document 07/04/19 15:44 EG (Rec: 07/04/19 16:28 EG [email or web address]) Functional Tests 30 Second Sit to Stand Test Score 7 Comments Used hands on armchair Timed Up and Go (TUG) Score 12 sec average Comments 13, 11, 12 sec TUG Impairment Rating 20 to <40% Impaired (Score 12- 13) PT-OP-G Mobility & Gait Start: 07/04/19 15:43 Freq: Status: Active Protocol: Document 07/04/19 15:44 EG (Rec: 07/04/19 16:28 EG [email or web address]) OP Gait Assessment Gait Gait Assistance Required: Independent Distance (Feet) 200 Able to Maintain Weight Bearing Status Yes During Gait Assistive Devices Assistive Device None Orthotic/Prosthetic Devices or Brace: No Gait Deviations General Gait Pattern Decreased Feet Clearance Factors Limiting Gait Function Factors Limiting Gait Function Decreased Activity Tolerance, Decreased Strength,Pain,Poor Balance PT-OP-M Strength Start: 07/04/19 15:43 Freq: Status: Active Protocol: Document 07/04/19 15:44 EG (Rec: 07/04/19 16:28 EG [email or web address]) Hip Strength Hip Manual Muscle Testing Right Flexion (L2) 4- Good- Left Flexion (L2) 4- Good- Knee Strength Knee Manual Muscle Testing Left Flexion (S2) 4 Good Extension (L3) 4 Good Right Flexion (S2) 4 Good Extension (L3) 4 Good Ankle/Foot Strength Ankle and Foot Manual Muscle Testing Right Dorsiflexion (L4) 4 Good Left Dorsiflexion (L4) 4 Good PT-OP-Q Treatments Start: 07/04/19 15:43 Freq: Status: Active Protocol: Document 07/18/19 10:30 EG (Rec: 07/18/19 15:07 EG [email or web address]) Gym Equipment Shuttle Recovery Unilateral Squats Details Unilateral Squats Resistance 50# Shuttle Recovery Platform Stable Reps/Time 15x each side Bilateral Heel Raises Details Bilateral Heel Raise Resistance 100# Shuttle Recovery Platform Stable Reps/Time 2x15 Bilateral Squats Details Bilateral Squats Resistance 100#/112# Shuttle Recovery Platform Stable Reps/Time 2x15 with increased weight on 2nd set Therapeutic Exercises Standing Exercises 5 Standing Exercise Name 2 way hip Side bilateral Resistance L2 TB Equipment Used stair rail for balance Reps/Minutes 10x each way Comments Extension, Abduction Therapeutic Activity Therapeutic Activity Stair Training Name Stairs Reps/Minutes ascend and descend 3 steps 3x Comments step over step ascending, step to step descending with ER of LLE as she steps down. No handrail was used but CGA and gait belt were. Slightly unsteady with descent. Neuro Re-Education Treatment Balance Activities Hurdles Details Hurdles Fwd/sideways Surface carpet Equipment 2 hurdles, blue foam pad, yellow eda disk, wall rail Reps/Duration done 3 x forward and 3x sideways without dinadisk Comments 1 hand on rail intermittently as well as gait belt for assistance for balance. Increased speed and decreased stability stepping laterally over obstacles. Required WORKERS[employer] COMPENSATION MAGISTRATE when stepping on eda disk. 2 Details SLS, feet together EC Reps/Duration 30 sec Comments wall rail for stability cues for core stabilization Decreased balance standing on LLE 1 Details Rocker Board Equipment Rocker Board Comments Stood A/P moving head vertically as well as side to side [address] Done balancing with board lateral as well with head movement PT-OP-T Assessment and Plan Start: 07/04/19 15:43 Freq: Status: Active Protocol: Document 07/18/19 10:30 EG (Rec: 07/18/19 15:07 EG [email or web address]) Physical Therapy Assessment Assessment Summary Assessment patient did well with neuromuscular reeducation and LE strengthening today. Shuttle recovery did not bother her knee and is good for overall LE strengthening. Patient did well with obstacle course but does require CGA during activity because this is challenging for her somatosensory system. Important to continue with training balance while challenging both the vision and somatosensory systems. Physical Therapy Plan Frequency and Duration Frequency of Treatment 2x/Week Duration of Treatment 8 weeks Plan of Care Start Date 07/04/19 Plan of Care End Date 08/29/19 Next Visit Focus/Plan Next Note Type Treatment Note Next Visit Plan Try shuttle balance with baloon batting. Continue working on balance exercises with EC, hurdles, uneven surfaces. LE strengthening. Core stabilization/TA activation Irma Silveira DPT, supervised all treatment performed by, and agreed with the plan of care, as performed by Jo-Ann Neal, ROLAND.
--- NOTE | 2019-07-20 11:16 | PT.OTN ---
Current Diagnoses Unspecified lack of coordination (07/20/19) Physical Therapy Treatment Note PT-OP-A Visit Information Start: 07/04/19 15:43 Freq: Status: Active Protocol: Document 07/20/19 10:33 KS (Rec: 07/20/19 13:11 KS [email or web address]) Out-Patient Physical Therapy Visit Information Visit Information Visit Type Treatment Note Visit Start Time 10:33 Visit Stop Time 11:16 Total Visit Minutes 43 Visit Number 6 Number of NURSE ORTHOPEDIC Visits 1 PT-OP-B Current Condition Start: 07/04/19 15:43 Freq: Status: Active Protocol: Document 07/04/19 15:44 EG (Rec: 07/04/19 16:28 EG [email or web address]) Current Condition History of Current Condition Onset Date past year Current Complaints decreased balance and stability History of Current Condition Patient is an 79 year old female who reports to physical therapy with the cheif complaint of having decreased stability and balance when looking up or walking in the dark. She has been to physical therapy in the past for 4-5 sessions but then she went to [place] for vacation and was unable to continue. She wants to begin again because she felt like the exercises and balance training helped her. She does have a current complaint of R knee pain and has a history of back pain and R ankle pain. She is planning on seeing the director education to look at her bunions on her feet which have also caused an open sore on the second toe of her R foot. She currently wears orthotics while walking in the community and when ambulating at home. She does wear toe dividers at night at times to help air out her feet. The patient reports living with her daughter in the basement where she has a kitchen and a living room. She does not have to perform any stairs unless she wants to go upstairs and see her grandchildren. Patient reports that she enjoys working out in the yard, cleaning, doing housework, playing cards, and quilting. 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 Currently the patient would like to work on bending over in the garden and getting up and down from the ground with stability. She currently uses long pole in the garden to help her walk in the grass. Prior Treatments and Tests Past OP PT Future Testing and Treatments Planned Swimmer for Bunion and Open sore on R second toe Treatment Goals Patient/Caregiver Goals Would like to work out in yard more and work on bending over and getting up again Prior Functional Status Baseline Function- ADL's Independent Baseline Function- Mobility Independent Baseline Function- Gait Independent; use pole to ambulate in grass Baseline Function- Work/School Retired Baseline Function- Recreation/Hobbies Volunteer, Quilting, playing cards Current Functional Impairments (Reported) Functional Limitations- Recreation/ Has to be more cautious when Hobbies walking in a crowded environment at the [employer] Personal Factors Other Personal Factors That May Effect Arthritis Therapy/Recovery Prior back and knee surgery PT-OP-C Subjective Start: 07/04/19 15:43 Freq: Status: Active Protocol: Document 07/20/19 10:33 KS (Rec: 07/20/19 13:11 KS [email or web address]) OP-PT Subjective Patient Comments Patient Comments Pt reports that she had some muscle soreness after last treatment. Feels like she may be getting stronger, but is not currently noticing improvements w/ balance. Patient Reported Progress Same PT-OP-D Balance Start: 07/04/19 15:43 Freq: Status: Active Protocol: Document 07/04/19 15:44 EG (Rec: 07/04/19 16:28 EG [email or web address]) Camacho Balance Assessment Evaluation Sitting to Standing Ability Independent w/Hands Unsupported Stance Safely- 2 minutes Sitting Unsupported, Feet on Floor Safely- 2 minutes Standing to Sitting Ability Assist, Control w/Hands Transfer Ability Safely, Minimal Hand Use Unsupported Stance- Eyes Closed Supervision, 10 seconds Unsupported Stance- Eyes Open Supervision to maintain Reaching Forward Standing Confidently, 10 inches Pick- Up Object From Floor Independent/Safe Look Behind Shoulder - Standing Shifts Weight Well Turning 360 Degrees Turns Bilateral, < 4 secs Unsupported Stance, Alternating Feet on (I)- 8 Steps in > 20 secs Stair Unsupported Tandem Stance Holds Tandem- 30 seconds Unilateral Leg Stance Lifts Leg/Holds 5-10 secs Total Score Camacho Total Score (out of 56 points) 49 PT-OP-E Functional Tests Start: 07/04/19 15:43 Freq: Status: Active Protocol: Document 07/04/19 15:44 EG (Rec: 07/04/19 16:28 EG [email or web address]) Functional Tests 30 Second Sit to Stand Test Score 7 Comments Used hands on armchair Timed Up and Go (TUG) Score 12 sec average Comments 13, 11, 12 sec TUG Impairment Rating 20 to <40% Impaired (Score 12- 13) PT-OP-G Mobility & Gait Start: 07/04/19 15:43 Freq: Status: Active Protocol: Document 07/04/19 15:44 EG (Rec: 07/04/19 16:28 EG [email or web address]) OP Gait Assessment Gait Gait Assistance Required: Independent Distance (Feet) 200 Able to Maintain Weight Bearing Status Yes During Gait Assistive Devices Assistive Device None Orthotic/Prosthetic Devices or Brace: No Gait Deviations General Gait Pattern Decreased Feet Clearance Factors Limiting Gait Function Factors Limiting Gait Function Decreased Activity Tolerance, Decreased Strength,Pain,Poor Balance PT-OP-M Strength Start: 07/04/19 15:43 Freq: Status: Active Protocol: Document 07/04/19 15:44 EG (Rec: 07/04/19 16:28 EG [email or web address]) Hip Strength Hip Manual Muscle Testing Right Flexion (L2) 4- Good- Left Flexion (L2) 4- Good- Knee Strength Knee Manual Muscle Testing Left Flexion (S2) 4 Good Extension (L3) 4 Good Right Flexion (S2) 4 Good Extension (L3) 4 Good Ankle/Foot Strength Ankle and Foot Manual Muscle Testing Right Dorsiflexion (L4) 4 Good Left Dorsiflexion (L4) 4 Good PT-OP-Q Treatments Start: 07/04/19 15:43 Freq: Status: Active Protocol: Document 07/20/19 10:33 KS (Rec: 07/20/19 13:11 KS [email or web address]) Cardio Equipment Recumbent Stepper (Sci-Fit) Duration (Minutes) 6 Resistance 2.7 Gym Equipment Shuttle Recovery Unilateral Squats Details Unilateral Squats Resistance 50# Shuttle Recovery Platform Stable Reps/Time 3x10 each side Bilateral Heel Raises Details Bilateral Heel Raise Resistance 100# Shuttle Recovery Platform Stable Reps/Time 2x10 Bilateral Squats Details Bilateral Squats Resistance 100# Shuttle Recovery Platform Stable Reps/Time 3x10 Therapeutic Exercises Sitting Exercises 3 Sitting Exercise Name Hip abduction Side bilateral Resistance L 4 tband Reps/Minutes 3X10 Comments 3 sec hold, upright posture and core stablization Standing Exercises step down Standing Exercise Name Lateral step down/up, forward step up Side bilateral Equipment Used 4 inch step Reps/Minutes 10 Comments toe tap to ground [address] Exercise Name 3 way hip Side bilateral Equipment Used // bars Reps/Minutes 1x10 Comments Flexion,abduction, extension 3 Standing Exercise Name Calf raises Side bilateral Reps/Minutes 2x10 Comments heel raises, toe lifts 1 Standing Exercise Name Side steps Equipment Used l2 tband Reps/Minutes 5 laps Comments cues for forward facing toes Neuro Re-Education Treatment Balance Activities 2 Details SLS Equipment foam Reps/Duration 30 sec Comments //bars for stability cues for core stabilization PT-OP-T Assessment and Plan Start: 07/04/19 15:43 Freq: Status: Active Protocol: Document 07/20/19 10:33 KS (Rec: 07/20/19 13:11 KS [email or web address]) Physical Therapy Assessment Rehab Potential Rehabilitation Potential Good Evaluation Complexity Number of Personal Factors/Comorbidities 1-2 Number of Body Systems Impaired 4 or More Clinical Presentation at Evaluation Stable Impairments Impairments Balance,Coordination, Functional Activities, Functional Mobility,Pain,ROM, Strength,Transfers Other Concerns Fall Risk DGI indicates increased risk of falls Goals Five Impairment Balance Short Term Goal (STG) Patient will hold SLS on bilateral extremities for >15 seconds on stable surface in 3 weeks. STG Duration 3 weeks Pulverizing And Sifting Operator Goal (LTG) Patient will hold SLS on bilateral extremities for >15 seconds on unstable surface in 6 weeks. LTG Duration 6 weeks Four Impairment Strength Short Term Goal (STG) Patient will be able to stand up from chair with unilateral UE support from standard arm chair in 3 weeks. STG Duration 3 weeks Pulverizing And Sifting Operator Goal (LTG) Patient will be able to stand up from chair without UE support from standard arm chair in 6 weeks. LTG Duration 6 weeks Three Impairment Coordination Short Term Goal (STG) Patient will walk 20 feet independently with no LOB while in a distracted environment and turning head side to side in 2 weeks. STG Duration 2 weeks Pulverizing And Sifting Operator Goal (LTG) Patient will walk 50 feet independently with no LOB while stepping over obstacles and on uneven surfaces in 4 weeks. LTG Duration 4 weeks Two Impairment BBS Correction Goal (LTG) patient will increase BBS to > 54 in 6 weeks. LTG Duration 6 weeks One Impairment pt has no HEP Short Term Goal (STG) Pt will be independent with HEP for support of services provided in clinic STG Duration 04/05/19 Correction Goal (LTG) Pt will be independent with maintenance HEP LTG Duration 05/10/19 Assessment Summary Assessment Pt responded well to LE strengthening today and had appropriate level of fatigue secondary to treatment. She requires cues for core stabilization during balance activities. Pt had slight dizziness that resolved quickly after sitting up from shuttle. Will benefit from continued progression of balance and coordination training. Physical Therapy Plan Frequency and Duration Frequency of Treatment 2x/Week Duration of Treatment 8 weeks Plan of Care Start Date 07/04/19 Plan of Care End Date 08/29/19 Therapeutic Interventions Therapeutic Interventions Balance Training,Coordination Training,Gait Training,Home Exercise Program,Neuromuscular Re-education,Self-Care/Home Management,Therapeutic Activities,Therapeutic Exercises Next Visit Focus/Plan Next Note Type Treatment Note Next Visit Plan Try shuttle balance with baloon batting. Continue working on balance exercises with EC, hurdles, uneven surfaces. LE strengthening. Core stabilization/TA activation
--- NOTE | 2019-07-25 13:45 | PT.OTN ---
Current Diagnoses Unspecified lack of coordination (07/25/19) Physical Therapy Treatment Note PT-OP-A Visit Information Start: 07/04/19 15:43 Freq: Status: Active Protocol: Document 07/25/19 13:10 SP (Rec: 07/25/19 15:22 SP [id number]) Out-Patient Physical Therapy Visit Information Visit Information Visit Type Treatment Note Visit Start Time 13:10 Visit Stop Time 13:45 Total Visit Minutes 35 Visit Number 7 Number of PRODUCTION SUPERINTENDENT HYDRO Visits 2 PT-OP-B Current Condition Start: 07/04/19 15:43 Freq: Status: Active Protocol: Document 07/04/19 15:44 EG (Rec: 07/04/19 16:28 EG [email or web address]) Current Condition History of Current Condition Onset Date past year Current Complaints decreased balance and stability History of Current Condition Patient is an 79 year old female who reports to physical therapy with the [facility] complaint of having decreased stability and balance when looking up or walking in the dark. She has been to physical therapy in the past for 4-5 sessions but then she went to [place] for vacation and was unable to continue. She wants to begin again because she felt like the exercises and balance training helped her. She does have a current complaint of R knee pain and has a history of back pain and R ankle pain. She is planning on seeing the refurbish technician to look at her bunions on her feet which have also caused an open sore on the second toe of her R foot. She currently wears orthotics while walking in the community and when ambulating at home. She does wear toe dividers at night at times to help air out her feet. The patient reports living with her daughter in the basement where she has a kitchen and a living room. She does not have to perform any stairs unless she wants to go upstairs and see her grandchildren. Patient reports that she enjoys working out in the yard, cleaning, doing housework, playing cards, and quilting. 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 Currently the patient would like to work on bending over in the garden and getting up and down from the ground with stability. She currently uses long pole in the garden to help her walk in the grass. Prior Treatments and Tests Past OP PT Future Testing and Treatments Planned Marine Fireman for Bunion and Open sore on R second toe Treatment Goals Patient/Caregiver Goals Would like to work out in yard more and work on bending over and getting up again Prior Functional Status Baseline Function- ADL's Independent Baseline Function- Mobility Independent Baseline Function- Gait Independent; use pole to ambulate in grass Baseline Function- Work/School Retired Baseline Function- Recreation/Hobbies Volunteer, Quilting, playing cards Current Functional Impairments (Reported) Functional Limitations- Recreation/ Has to be more cautious when Hobbies walking in a crowded environment at the [employer] [facility] Personal Factors Other Personal Factors That May Effect Arthritis Therapy/Recovery Prior back and knee surgery PT-OP-C Subjective Start: 07/04/19 15:43 Freq: Status: Active Protocol: Document 07/25/19 13:10 SP (Rec: 07/25/19 15:22 SP [id number]) OP-PT Subjective Patient Comments Patient Comments Pt stated did ride the bike at [facility] the other day, and incorporating her exercises but maybe not as much as daughter would like. PT-OP-D Balance Start: 07/04/19 15:43 Freq: Status: Active Protocol: Document 07/04/19 15:44 EG (Rec: 07/04/19 16:28 EG [email or web address]) Camacho Balance Assessment Evaluation Sitting to Standing Ability Independent w/Hands Unsupported Stance Safely- 2 minutes Sitting Unsupported, Feet on Floor Safely- 2 minutes Standing to Sitting Ability Assist, Control w/Hands Transfer Ability Safely, Minimal Hand Use Unsupported Stance- Eyes Closed Supervision, 10 seconds Unsupported Stance- Eyes Open Supervision to maintain Reaching Forward Standing Confidently, 10 inches Pick- Up Object From Floor Independent/Safe Look Behind Shoulder - Standing Shifts Weight Well Turning 360 Degrees Turns Bilateral, < 4 secs Unsupported Stance, Alternating Feet on (I)- 8 Steps in > 20 secs Stair Unsupported Tandem Stance Holds Tandem- 30 seconds Unilateral Leg Stance Lifts Leg/Holds 5-10 secs Total Score Camacho Total Score (out of 56 points) 49 PT-OP-E Functional Tests Start: 07/04/19 15:43 Freq: Status: Active Protocol: Document 07/04/19 15:44 EG (Rec: 07/04/19 16:28 EG [email or web address]) Functional Tests 30 Second Sit to Stand Test Score 7 Comments Used hands on armchair Timed Up and Go (TUG) Score 12 sec average Comments 13, 11, 12 sec TUG Impairment Rating 20 to <40% Impaired (Score 12- 13) PT-OP-G Mobility & Gait Start: 07/04/19 15:43 Freq: Status: Active Protocol: Document 07/04/19 15:44 EG (Rec: 07/04/19 16:28 EG [email or web address]) OP Gait Assessment Gait Gait Assistance Required: Independent Distance (Feet) 200 Able to Maintain Weight Bearing Status Yes During Gait Assistive Devices Assistive Device None Orthotic/Prosthetic Devices or Brace: No Gait Deviations General Gait Pattern Decreased Feet Clearance Factors Limiting Gait Function Factors Limiting Gait Function Decreased Activity Tolerance, Decreased Strength,Pain,Poor Balance PT-OP-M Strength Start: 07/04/19 15:43 Freq: Status: Active Protocol: Document 07/04/19 15:44 EG (Rec: 07/04/19 16:28 EG [email or web address]) Hip Strength Hip Manual Muscle Testing Right Flexion (L2) 4- Good- Left Flexion (L2) 4- Good- Knee Strength Knee Manual Muscle Testing Left Flexion (S2) 4 Good Extension (L3) 4 Good Right Flexion (S2) 4 Good Extension (L3) 4 Good Ankle/Foot Strength Ankle and Foot Manual Muscle Testing Right Dorsiflexion (L4) 4 Good Left Dorsiflexion (L4) 4 Good PT-OP-Q Treatments Start: 07/04/19 15:43 Freq: Status: Active Protocol: Document 07/25/19 13:10 SP (Rec: 07/25/19 15:22 SP [id number]) Gym Equipment Shuttle Recovery Unilateral Squats Details Unilateral Squats Resistance 50# Shuttle Recovery Platform Stable Reps/Time 3x10 each side Bilateral Heel Raises Details Bilateral Heel Raise Resistance 100# Shuttle Recovery Platform Stable Reps/Time 2x10 Bilateral Squats Details Bilateral Squats Resistance 100# Shuttle Recovery Platform Stable Reps/Time 3x10 Shuttle Balance Blue chains Details WBOS, NBOS, stagger (hands hover rail) Reps/Duration 5 min total Comments NBOS: head turns, vertical- CGA-10% WBOS: EC- brief challenged Min A Neuro Re-Education Treatment Balance Activities 2 Details NBOS: feet together, stagger Surface floor Equipment back to corner, chair front Reps/Duration worked on for 4 min PT-OP-T Assessment and Plan Start: 07/04/19 15:43 Freq: Status: Active Protocol: Document 07/25/19 13:10 SP (Rec: 07/25/19 15:22 SP [id number]) Physical Therapy Assessment Goals Five Impairment Balance Short Term Goal (STG) Patient will hold SLS on bilateral extremities for >15 seconds on stable surface in 3 weeks. STG Duration 3 weeks Instrument Assembly Supervisor Goal (LTG) Patient will hold SLS on bilateral extremities for >15 seconds on unstable surface in 6 weeks. LTG Duration 6 weeks Four Impairment Strength Short Term Goal (STG) Patient will be able to stand up from chair with unilateral UE support from standard arm chair in 3 weeks. STG Duration 3 weeks [facility] Goal (LTG) Patient will be able to stand up from chair without UE support from standard arm chair in 6 weeks. LTG Duration 6 weeks Three Impairment Coordination Short Term Goal (STG) Patient will walk 20 feet independently with no LOB while in a distracted environment and turning head side to side in 2 weeks. STG Duration 2 weeks Instrument Assembly Supervisor Goal (LTG) Patient will walk 50 feet independently with no LOB while stepping over obstacles and on uneven surfaces in 4 weeks. LTG Duration 4 weeks Two Impairment BBS Instrument Assembly Supervisor Goal (LTG) patient will increase BBS to > 54 in 6 weeks. LTG Duration 6 weeks One Impairment pt has no HEP Short Term Goal (STG) Pt will be independent with HEP for support of services provided in clinic STG Duration 04/05/19 [facility] Goal (LTG) Pt will be independent with maintenance HEP LTG Duration 05/10/19 Assessment Summary Assessment Pt tolerated tx well, improved in WBOS and NBOS feet together, stagger while incorporating head turns today but challenged by shuttle balance blue clips and floor EC requiring more support for LOB recovery for safety. Mod cues for wt distribution between BLE, upright posture, core and glut engagement with improvement in stabilization noted during balance activities. Added to HEP: stationary feet together, stagger back to corner intially start with looking forward then added head turns/ vertical. Instructed working on EC only in PT for safety with verbal confirmation. Physical Therapy Plan Frequency and Duration Frequency of Treatment 2x/Week Duration of Treatment 8 weeks Plan of Care Start Date 07/04/19 Plan of Care End Date 08/29/19 Therapeutic Interventions Therapeutic Interventions Balance Training,Coordination Training,Gait Training,Home Exercise Program,Neuromuscular Re-education,Self-Care/Home Management,Therapeutic Activities,Therapeutic Exercises Next Visit Focus/Plan Next Note Type Treatment Note Next Visit Plan Assess response last tx and review added NBOS HEP. Next tx add laith stepping foward/side in //bars, step ups with HR support. Continue working on LE strengthening. Core stabilization/TA activation. Balance exercises with EC, hurdles, uneven surfaces progressing toward shuttle balance with baloon batting.
--- NOTE | 2019-07-27 10:27 | PT.OTN ---
Current Diagnoses Unspecified lack of coordination (07/27/19) Physical Therapy Treatment Note PT-OP-A Visit Information Start: 07/04/19 15:43 Freq: Status: Active Protocol: Document 07/27/19 09:44 KS (Rec: 07/27/19 12:50 KS [email or web address]) Out-Patient Physical Therapy Visit Information Visit Information Visit Type Treatment Note Visit Start Time 09:44 Visit Stop Time 10:27 Total Visit Minutes 43 Visit Number 8 Number of DEGREE CLERK Visits 3 PT-OP-B Current Condition Start: 07/04/19 15:43 Freq: Status: Active Protocol: Document 07/04/19 15:44 EG (Rec: 07/04/19 16:28 EG [email or web address]) Current Condition History of Current Condition Onset Date past year Current Complaints decreased balance and stability History of Current Condition Patient is an 79 year old female who reports to physical therapy with the cheif complaint of having decreased stability and balance when looking up or walking in the dark. She has been to physical therapy in the past for 4-5 sessions but then she went to [place] for vacation and was unable to continue. She wants to begin again because she felt like the exercises and balance training helped her. She does have a current complaint of R knee pain and has a history of back pain and R ankle pain. She is planning on seeing the painter aircraft to look at her bunions on her feet which have also caused an open sore on the second toe of her R foot. She currently wears orthotics while walking in the community and when ambulating at home. She does wear toe dividers at night at times to help air out her feet. The patient reports living with her daughter in the basement where she has a kitchen and a living room. She does not have to perform any stairs unless she wants to go upstairs and see her grandchildren. Patient reports that she enjoys working out in the yard, cleaning, doing housework, playing cards, and quilting. She volunteers at [employer] in [place]. Currently the patient would like to work on bending over in the garden and getting up and down from the ground with stability. She currently uses long pole in the garden to help her walk in the grass. Prior Treatments and Tests Past OP PT Future Testing and Treatments Planned Residential Tech for Bunion and Open sore on R second toe Treatment Goals Patient/Caregiver Goals Would like to work out in yard more and work on bending over and getting up again Prior Functional Status Baseline Function- ADL's Independent Baseline Function- Mobility Independent Baseline Function- Gait Independent; use pole to ambulate in grass Baseline Function- Work/School Retired Baseline Function- Recreation/Hobbies Volunteer, Quilting, playing cards Current Functional Impairments (Reported) Functional Limitations- Recreation/ Has to be more cautious when Hobbies walking in a crowded environment at the [employer] Personal Factors Other Personal Factors That May Effect Arthritis Therapy/Recovery Prior back and knee surgery PT-OP-C Subjective Start: 07/04/19 15:43 Freq: Status: Active Protocol: Document 07/27/19 09:44 KS (Rec: 07/27/19 12:50 KS [email or web address]) OP-PT Subjective Patient Comments Patient Comments Pt stated that she is feeling well today and is completing some of her exercises at home. PT-OP-D Balance Start: 07/04/19 15:43 Freq: Status: Active Protocol: Document 07/04/19 15:44 EG (Rec: 07/04/19 16:28 EG [email or web address]) Camacho Balance Assessment Evaluation Sitting to Standing Ability Independent w/Hands Unsupported Stance Safely- 2 minutes Sitting Unsupported, Feet on Floor Safely- 2 minutes Standing to Sitting Ability Assist, Control w/Hands Transfer Ability Safely, Minimal Hand Use Unsupported Stance- Eyes Closed Supervision, 10 seconds Unsupported Stance- Eyes Open Supervision to maintain Reaching Forward Standing Confidently, 10 inches Pick- Up Object From Floor Independent/Safe Look Behind Shoulder - Standing Shifts Weight Well Turning 360 Degrees Turns Bilateral, < 4 secs Unsupported Stance, Alternating Feet on (I)- 8 Steps in > 20 secs Stair Unsupported Tandem Stance Holds Tandem- 30 seconds Unilateral Leg Stance Lifts Leg/Holds 5-10 secs Total Score Camacho Total Score (out of 56 points) 49 PT-OP-E Functional Tests Start: 07/04/19 15:43 Freq: Status: Active Protocol: Document 07/04/19 15:44 EG (Rec: 07/04/19 16:28 EG [email or web address]) Functional Tests 30 Second Sit to Stand Test Score 7 Comments Used hands on armchair Timed Up and Go (TUG) Score 12 sec average Comments 13, 11, 12 sec TUG Impairment Rating 20 to <40% Impaired (Score 12- 13) PT-OP-G Mobility & Gait Start: 07/04/19 15:43 Freq: Status: Active Protocol: Document 07/04/19 15:44 EG (Rec: 07/04/19 16:28 EG [email or web address]) OP Gait Assessment Gait Gait Assistance Required: Independent Distance (Feet) 200 Able to Maintain Weight Bearing Status Yes During Gait Assistive Devices Assistive Device None Orthotic/Prosthetic Devices or Brace: No Gait Deviations General Gait Pattern Decreased Feet Clearance Factors Limiting Gait Function Factors Limiting Gait Function Decreased Activity Tolerance, Decreased Strength,Pain,Poor Balance PT-OP-M Strength Start: 07/04/19 15:43 Freq: Status: Active Protocol: Document 07/04/19 15:44 EG (Rec: 07/04/19 16:28 EG [email or web address]) Hip Strength Hip Manual Muscle Testing Right Flexion (L2) 4- Good- Left Flexion (L2) 4- Good- Knee Strength Knee Manual Muscle Testing Left Flexion (S2) 4 Good Extension (L3) 4 Good Right Flexion (S2) 4 Good Extension (L3) 4 Good Ankle/Foot Strength Ankle and Foot Manual Muscle Testing Right Dorsiflexion (L4) 4 Good Left Dorsiflexion (L4) 4 Good PT-OP-Q Treatments Start: 07/04/19 15:43 Freq: Status: Active Protocol: Document 07/27/19 09:44 KS (Rec: 07/27/19 12:50 KS [email or web address]) Cardio Equipment Recumbent Stepper (Sci-Fit) Duration (Minutes) 6 Resistance 3 Gym Equipment Shuttle Recovery Unilateral Squats Details Unilateral Squats Resistance 50# Shuttle Recovery Platform Stable Reps/Time 3x10 each side Bilateral Squats Details Bilateral Squats Resistance 100# Shuttle Recovery Platform Stable Reps/Time 3x10 Shuttle Balance Blue chains Details WBOS, NBOS, stagger (hands hover rail) Reps/Duration 3 min total Comments red chains, head turns Therapeutic Exercises Sitting Exercises Hamstring curls Sitting Exercise Name Hamstring curls Side bilateral Reps/Minutes 2x10 3 Sitting Exercise Name Hip abduction Side bilateral Resistance YTB Reps/Minutes 3X10 Comments 3 sec hold, upright posture and core stablization 2 Sitting Exercise Name Seated Marching Side bilateral Resistance 5# Reps/Minutes 2 min 1 Sitting Exercise Name LAQ Side bilateral Resistance 5# Reps/Minutes 2x10 Comments 3 s hold Standing Exercises 3 Standing Exercise Name Calf raises Side bilateral Reps/Minutes 2x10 Comments heel raises, toe lifts 2 Standing Exercise Name Marching Resistance 5# Reps/Minutes 3 laps 1 Standing Exercise Name Side steps Equipment Used YTB Reps/Minutes 5 laps Comments cues for forward facing toes PT-OP-T Assessment and Plan Start: 07/04/19 15:43 Freq: Status: Active Protocol: Document 07/27/19 09:44 KS (Rec: 07/27/19 12:50 KS [email or web address]) Physical Therapy Assessment Rehab Potential Rehabilitation Potential Good Evaluation Complexity Number of Personal Factors/Comorbidities 1-2 Number of Body Systems Impaired 4 or More Clinical Presentation at Evaluation Stable Impairments Impairments Balance,Coordination, Functional Activities, Functional Mobility,Pain,ROM, Strength,Transfers Other Concerns Fall Risk DGI indicates increased risk of falls Goals Five Impairment Balance Short Term Goal (STG) Patient will hold SLS on bilateral extremities for >15 seconds on stable surface in 3 weeks. STG Duration 3 weeks Staff Editor Goal (LTG) Patient will hold SLS on bilateral extremities for >15 seconds on unstable surface in 6 weeks. LTG Duration 6 weeks Four Impairment Strength Short Term Goal (STG) Patient will be able to stand up from chair with unilateral UE support from standard arm chair in 3 weeks. STG Duration 3 weeks Staff Editor Goal (LTG) Patient will be able to stand up from chair without UE support from standard arm chair in 6 weeks. LTG Duration 6 weeks Three Impairment Coordination Short Term Goal (STG) Patient will walk 20 feet independently with no LOB while in a distracted environment and turning head side to side in 2 weeks. STG Duration 2 weeks Staff Editor Goal (LTG) Patient will walk 50 feet independently with no LOB while stepping over obstacles and on uneven surfaces in 4 weeks. LTG Duration 4 weeks Two Impairment BBS Short Term Goal (STG) Pt will score 22/24 or greater on DGI for decreased fall risk STG Duration 04/12/19 Staff Editor Goal (LTG) patient will increase BBS to > 54 in 6 weeks. LTG Duration 6 weeks One Impairment pt has no HEP Short Term Goal (STG) Pt will be independent with HEP for support of services provided in clinic STG Duration 04/05/19 [facility] Goal (LTG) Pt will be independent with maintenance HEP LTG Duration 12/11/19 Assessment Summary Assessment Pt was able to complete LE stregnthening and balance exercises today w/ appropriate level of fatigue. Required cues for forward facing toes during side steps and core engagement throughout treatment. Pt noted abductor muscle fatigue secondary to treatment. Physical Therapy Plan Frequency and Duration Frequency of Treatment 2x/Week Duration of Treatment 8 weeks Plan of Care Start Date 07/04/19 Plan of Care End Date 08/29/19 Therapeutic Interventions Therapeutic Interventions Balance Training,Coordination Training,Gait Training,Home Exercise Program,Neuromuscular Re-education,Self-Care/Home Management,Therapeutic Activities,Therapeutic Exercises Next Visit Focus/Plan Next Note Type Treatment Note Next Visit Plan Assess response and review added NBOS HEP. Next tx add laith stepping foward/side in //bars, step ups with HR support. Continue working on LE strengthening. Core stabilization/TA activation. Balance exercises with EC, hurdles, uneven surfaces progressing toward shuttle balance with baloon batting.
--- NOTE | 2019-08-09 18:50 | PT-OP ANOTE ---
Pt forgot appointment. Dgt was on the phone with her and instructed her to call to reschedule.
--- NOTE | 2019-11-07 16:21 | PT.OPDS ---
Current Diagnoses Unspecified lack of coordination (07/27/19) Visit Care Team Role Provider Type Richie Lamb MD Attending Provider Physician Primary Care Provider Referring Provider Specialty: Family [facility] Address: [address] [place] [address], [facility], [place], [place], [facility] Email: [email or web address] Visit Number Visit Number 8 Discharge Summary PT-OP-B Current Condition Start: 07/04/19 15:43 Freq: Status: Active Protocol: Document 07/04/19 15:44 EG (Rec: 07/04/19 16:28 EG [id number]) Current Condition History of Current Condition Onset Date past year Current Complaints decreased balance and stability History of Current Condition Patient is an 79 year old female who reports to physical therapy with the [facility] complaint of having decreased stability and balance when looking up or walking in the dark. She has been to physical therapy in the past for 4-5 sessions but then she went to [place] for vacation and was unable to continue. She wants to begin again because she felt like the exercises and balance training helped her. She does have a current complaint of R knee pain and has a history of back pain and R ankle pain. She is planning on seeing the neurology nurse to look at her bunions on her feet which have also caused an open sore on the second toe of her R foot. She currently wears orthotics while walking in the community and when ambulating at home. She does wear toe dividers at night at times to help air out her feet. The patient reports living with her daughter in the basement where she has a kitchen and a living room. She does not have to perform any stairs unless she wants to go upstairs and see her grandchildren. Patient reports that she enjoys working out in the yard, cleaning, doing housework, playing cards, and quilting. 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 Currently the patient would like to work on bending over in the garden and getting up and down from the ground with stability. She currently uses long pole in the garden to help her walk in the grass. Prior Treatments and Tests Past OP PT Future Testing and Treatments Planned Senior Manager [employer] for Bunion and Open sore on R second toe Treatment Goals Patient/Caregiver Goals Would like to work out in yard more and work on bending over and getting up again Prior Functional Status Baseline Function- ADL's Independent Baseline Function- Mobility Independent Baseline Function- Gait Independent; use pole to ambulate in grass Baseline Function- Work/School Retired Baseline Function- Recreation/Hobbies Volunteer, Quilting, playing cards Current Functional Impairments (Reported) Functional Limitations- Recreation/ Has to be more cautious when Hobbies walking in a crowded environment at the [employer] Personal Factors Other Personal Factors That May Effect Arthritis Therapy/Recovery Prior back and knee surgery PT-OP-C Subjective Start: 07/04/19 15:43 Freq: Status: Active Protocol: Document 07/27/19 09:44 KS (Rec: 07/27/19 12:50 KS [id number]) OP-PT Subjective Patient Comments Patient Comments Pt stated that she is feeling well today and is completing some of her exercises at home. PT-OP-D Balance Start: 07/04/19 15:43 Freq: Status: Active Protocol: Document 07/04/19 15:44 EG (Rec: 07/04/19 16:28 EG [id number]) Camacho Balance Assessment Evaluation Sitting to Standing Ability Independent w/Hands Unsupported Stance Safely- 2 minutes Sitting Unsupported, Feet on Floor Safely- 2 minutes Standing to Sitting Ability Assist, Control w/Hands Transfer Ability Safely, Minimal Hand Use Unsupported Stance- Eyes Closed Supervision, 10 seconds Unsupported Stance- Eyes Open Supervision to maintain Reaching Forward Standing Confidently, 10 inches Pick- Up Object From Floor Independent/Safe Look Behind Shoulder - Standing Shifts Weight Well Turning 360 Degrees Turns Bilateral, < 4 secs Unsupported Stance, Alternating Feet on (I)- 8 Steps in > 20 secs Stair Unsupported Tandem Stance Holds Tandem- 30 seconds Unilateral Leg Stance Lifts Leg/Holds 5-10 secs Total Score Camacho Total Score (out of 56 points) 49 PT-OP-E Functional Tests Start: 07/04/19 15:43 Freq: Status: Active Protocol: Document 07/04/19 15:44 EG (Rec: 07/04/19 16:28 EG [email or web address]) Functional Tests 30 Second Sit to Stand Test Score 7 Comments Used hands on armchair Timed Up and Go (TUG) Score 12 sec average Comments 13, 11, 12 sec TUG Impairment Rating 20 to <40% Impaired (Score 12- 13) PT-OP-G Mobility & Gait Start: 07/04/19 15:43 Freq: Status: Active Protocol: Document 07/04/19 15:44 EG (Rec: 07/04/19 16:28 EG [email or web address]) OP Gait Assessment Gait Gait Assistance Required: Independent Distance (Feet) 200 Able to Maintain Weight Bearing Status Yes During Gait Assistive Devices Assistive Device None Orthotic/Prosthetic Devices or Brace: No Gait Deviations General Gait Pattern Decreased Feet Clearance Factors Limiting Gait Function Factors Limiting Gait Function Decreased Activity Tolerance, Decreased Strength,Pain,Poor Balance PT-OP-M Strength Start: 07/04/19 15:43 Freq: Status: Active Protocol: Document 07/04/19 15:44 EG (Rec: 07/04/19 16:28 EG [email or web address]) Hip Strength Hip Manual Muscle Testing Right Flexion (L2) 4- Good- Left Flexion (L2) 4- Good- Knee Strength Knee Manual Muscle Testing Left Flexion (S2) 4 Good Extension (L3) 4 Good Right Flexion (S2) 4 Good Extension (L3) 4 Good Ankle/Foot Strength Ankle and Foot Manual Muscle Testing Right Dorsiflexion (L4) 4 Good Left Dorsiflexion (L4) 4 Good PT-OP-T Assessment and Plan Start: 07/04/19 15:43 Freq: Status: Active Protocol: Document 11/07/19 16:21 MB (Rec: 11/07/19 16:21 MB [id number]) Physical Therapy Plan Discharge Physical Therapy Discharge Comments Pt has not been attending PT. Will d/c PT.
== END 2019-11-13 08:54 ==
LOC: PHYS 09:45
PROVIDERS: PCP Family Medicine; Referring Provider Family Medicine; Visit Provider Family Medicine
DX: R27.9 Unspecified lack of coordination (principal)
CPT/HCPCS: 97110; 97112; 97161; 97530

== ENCOUNTER → 2019-07-30 12:06 | Outpatient (CLI) | payer MEDICARE, OTHER, SELFPAY | PROVIDERS: PCP Family Medicine; Visit Provider Nurse Practitioner | DX: R30.0 Dysuria (principal) | CPT/HCPCS: 87077; 87086; 87186 ==

== ENCOUNTER → 2019-12-03 08:55 | Outpatient (CLI) | payer MEDICARE, OTHER, SELFPAY ==
[2019-12-04 08:41] LABS: COVID19 Sendout Not Detected (Not Detect)
== END ==
PROVIDERS: PCP Family Medicine; Visit Provider Nurse Practitioner
DX: Z01.812 Encounter for preprocedural laboratory examination (principal)
CPT/HCPCS: 87635

== ENCOUNTER 2019-12-06 06:00 | Day surgery (SDC) | payer MEDICARE, OTHER, SELFPAY ==
[2019-11-29 09:48] VITALS: BMI 27.8
[2019-12-06 07:09] VITALS: BP 141/74; PULSE 73; RESP 16; TEMP 36.6; O2SAT 97; BMI 26.9
[2019-12-06] MEDS: ACETAMINOPHEN 325 MG TABLET 975 MG PO (07:23)
[2019-12-06] MEDS: GABAPENTIN 300 MG CAPSULE PO (07:23)
[2019-12-06] MEDS: CELECOXIB 200 MG CAPSULE 400 MG PO (07:23)
[2019-12-06] MEDS: LACTATED RINGERS 1,000 ML 42 ML IV (07:25)
--- NOTE | 2019-12-06 07:29 | SUR.PREOP ---
DR CARDENAS AWARE OF BUG BITES ON RIGHT KNEE AND LEFT PEREZ
--- NOTE | 2019-12-06 07:37 | PM.PREOP ---
Pre-operative Note COVID-19 COVID-19 status: Negative Result date/Date tested (Pos, Neg/Pending): 12/04/19 Interval Note History & Physical reviewed/Exam performed by Physician: Yes Changes to H&P: No
--- NOTE | 2019-12-06 07:38 | PM.OP.1 ---
Operative Date/Time/Diagnoses Date of procedure: 12/06/19 Pre-op diagnosis: Right knee osteoarthritis Post-op diagnosis: same Procedure & Clinicians Procedure: Right total knee arthroplasty Same procedure as scheduled: Yes Indications: The patient presents today for total knee arthroplasty after failure of conservative treatment. During preoperative view she did have a small bug bite that was a few weeks old on the anterior lateral aspect of the right knee. The area was closed with no evidence of infection. She also has a small healing wound on her left calf. This is also closed with no evidence of infection. We did discuss that there might be a slightly higher infection rate but she accepts this risk. The nature of the procedure including the risks and benefits, alternatives, postoperative course and expected outcome were discussed and all questions answered. Consent was obtained. Operative site confirmed and marked. Surgeon: Brian Flynn Od Grinder Operator: Jules Corbett Operative Notes Prosthetic devices, grafts, tissues, transplants, or devices: Matt Persona: [xx] femoral component, [xx] tibial component, [xx] mm BCS polyethylene tray and [xx] mm round patella Procedure in detail: The patient was taken to the operative suite and placed under anesthesia. The patient was given prophylactic antibiotics prior to surgery. [The patient was also given tranexamic acid, 1 g, just prior to surgery for postoperative hemostasis.] The lateral knee was prepped and the joint injected with 20 mL of 1% Lidocaine with epinephrine. The knee was then prepped and draped in usual sterile fashion. The leg was exsanguinated with an Esmarch dressing and the tourniquet raised to [250] torr. A 15 cm anterior incision was made. Next a medial trivector arthrotomy was made. The extensor mechanism was marked to ensure accurate repair. Initial exposing dissection was carried out medially and laterally. The knee was then flexed and the intramedullary femoral guide thomas placed. The distal femoral cut was made in [6]? of valgus at the +[0] position. The femoral size was measured and the appropriate cutting block was then placed and the anterior, posterior and chamfer cuts made. The intramedullary tibial alignment thomas was then placed. The guide was set to remove approximately [10] mm from the less affected [lateral] side. The proximal tibial cut was then made with an oscillating saw. All meniscus and bony debris was then removed. Posterior femoral osteophytes removed with a curved osteotome. Flexion extension gaps were checked. [No specific balancing was required other than routine exposure and removal of osteophytes]. The soft tissues were then injected with a combination of 20 mL of half percent Marcaine with epinephrine and 20 mL of Exparel. The trial components were then placed. The knee was then extended and the patellar thickness was measured and a cut made removing approximately [9] mm of bone. The patella was then sized and drilled. Some excess lateral bone was excised and the patellofemoral ligament released. [The knee went into full extension and flexion beyond 130?]. There was [excellent] medial-lateral balance throughout motion. Patellar tracking was [excellent]. The trial components were removed and the knee was cleansed with Pulsavac irrigation and dried. The final components were cemented with high viscosity vacuum mixed bone cement with antibiotics. The joint was filled with a dilute Betadine solution. The knee was held in extension and the patellar clamped until the cement was adequately cured. The knee was then irrigated. The extensor mechanism was closed with 5 interrupted #1 Vicryl sutures and a running Quill suture at approximately 90 degrees of flexion. The joint was then injected with a combination of 1 g of tranexamic acid and 20 mL of quarter percent Marcaine with epinephrine. The subcutaneous tissue was closed with 2 0 Vicryl. The skin was closed with absorbable subcuticular sutures and surgical adhesive. An [Aquacel dressing] and Laci wrap were then applied. The patient tolerated the procedure well and was returned to recovery room in good condition. Post-operative Plan for aftercare: [facility] Protocol.
[2019-12-06 08:26] VITALS: BP 133/71; PULSE 76; RESP 16; TEMP 36.3; O2SAT 92
[2019-12-06 08:31] VITALS: BP 128/70; PULSE 71; RESP 14; O2SAT 98
--- NOTE | 2019-12-06 08:34 | SUR.PHASEI ---
DR CARDENAS IN TO SPEAK WITH PT REGARDING HER INFECTED TOE AND NEED TO RESCHEDULE TODAYS SURGERY
[2019-12-06 08:35] VITALS: BP 142/70; PULSE 68; RESP 12; O2SAT 96
[2019-12-06 08:49] VITALS: BP 122/73; PULSE 66; RESP 16; TEMP 36.6; O2SAT 97
[2019-12-06 09:10] VITALS: BP 136/78; PULSE 71; RESP 15; TEMP 36.7; O2SAT 96
--- NOTE | 2019-12-06 09:18 | SUR.OPER ---
SEE INCIDENT REPORT.
== END 2019-12-06 09:07 | disposition home or self-care (01) ==
PROVIDERS: PCP Family Medicine; Referring Provider Orthopaedic Surgery; Visit Provider Orthopaedic Surgery
PROC: 0SRC0JZ Replacement of Right Knee Joint with Synthetic Substitute, Open Approach (ICD-10-PCS; CPT 27447; principal; 2019-12-06 07:45)
DX: M17.11 Unilateral primary osteoarthritis, right knee (principal); E78.5 Hyperlipidemia, unspecified; E03.9 Hypothyroidism, unspecified; K21.9 Gastro-esophageal reflux disease without esophagitis
CPT/HCPCS: 27447; J1100; J2405; J2704

== ENCOUNTER 2020-01-16 13:00 | Outpatient (RCR) | payer MEDICARE, OTHER, SELFPAY ==
--- NOTE | 2019-11-22 18:47 | PT.OIE ---
Current Diagnoses Unilateral primary osteoarthritis, unspecified knee (11/22/19) Difficulty in walking, not elsewhere classified (11/22/19) Weakness (11/22/19) Visit Care Team Role Provider Type Richie Lamb MD Primary Care Provider Physician Specialty: Family Practice Address: [facility], [place], [address] Email: [email or web address] Brian Flynn MD Attending Provider Physician Referring Provider Specialty: Orthopedic Surgery Address: [address] [place] [address], [place], [address] Email: [email or web address] Physical Therapy Initial Evaluation PT-OP-A Visit Information Start: 11/22/19 10:51 Freq: Status: Active Protocol: Document 11/22/19 13:50 [facility] (Rec: 11/22/19 14:32 [facility] [id number]) Out-Patient Physical Therapy Visit Information Visit Information Visit Type Initial Evaluation Visit Start Time 13:50 Visit Stop Time 14:30 Total Visit Minutes 40 Visit Number 1 Number of TAR HEEL Visits 0 PT-OP-B Current Condition Start: 11/22/19 10:51 Freq: Status: Active Protocol: Document 11/22/19 13:50 [facility] (Rec: 11/22/19 14:32 [facility] [id number]) Current Condition History of Current Condition Onset Date years Current Complaints R knee pain, planned R TKA 12/05 History of Current Condition Pt has R TKA scheduled for December 05. She has completed her reading from the MD. 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 Pt has a flat entry into her apartment. She has stairs to go up to her family's area but does not have to use them. Pt has had knee pain for years that has been getting worse. She has been doing exercises and she notes crepitius with movement. Treatment Goals Patient/Caregiver Goals gardening, getting up/down to/ from hands/knees PT-OP-C Subjective Start: 11/22/19 10:51 Freq: Status: Active Protocol: Document 11/22/19 13:50 [facility] (Rec: 11/22/19 14:32 [facility] [id number]) Patient Questionnaires Lower Extremity Functional Scale LEFS Score 40/80 LEFS Impairment 40 to 59% Impaired (Score 32- 47) OP-PT Pain Assessment Location R knee Pain Location Details ant knee Intensity 7 Scale Used Numeric (0 - 10) Description Aching,Sharp Frequency Frequent Pain Aggravating Factors Stair Climbing Other Pain Aggravating Factors up/down from ground, twist PT-OP-G Mobility & Gait Start: 11/22/19 10:51 Freq: Status: Active Protocol: Document 11/22/19 13:50 [facility] (Rec: 11/22/19 14:47 [facility] [id number]) OP Mobility Evaluation Bed Mobility Supine to and from Sit able to do with cane to assit RLE when educated, able without Transfers Sit to Stand edu on leg out and able to stand with RLE out in front OP Gait Assessment Comments Gait Comments able to ambulate without walker with lat leaning; able to do step to with walker with education Stair Climbing Evaluation Comments Stair Climbing Comments able to do with step to gait iwth rail and cane with eudcation PT-OP-K Range of Motion Start: 11/22/19 10:51 Freq: Status: Active Protocol: Document 11/22/19 13:50 [facility] (Rec: 11/22/19 14:32 [facility] [id number]) Knee Goniometric Range of Motion Knee Right Flexion Active (degrees) 121 Extension Active (degrees) 4 Left Flexion Active (degrees) 123 Extension Active (degrees) 0 PT-OP-M Strength Start: 11/22/19 10:51 Freq: Status: Active Protocol: Document 11/22/19 13:50 [facility] (Rec: 11/22/19 14:32 [facility] [id number]) Hip Strength Hip Manual Muscle Testing Right Flexion (L2) 3+ Fair+ Abduction 3 Fair External Rotation 3+ Fair+ Internal Rotation 4 Good Left Flexion (L2) 3+ Fair+ Abduction 3+ Fair+ External Rotation 4 Good Internal Rotation 4- Good- Knee Strength Knee Manual Muscle Testing Left Flexion (S2) 4+ Good+ Extension (L3) 4 Good Right Flexion (S2) 4+ Good+ Extension (L3) 4 Good Ankle/Foot Strength Ankle and Foot Manual Muscle Testing Right Dorsiflexion (L4) 5 Normal Plantarflexion (S1) 5 Normal Left Dorsiflexion (L4) 5 Normal Plantarflexion (S1) 5 Normal Comments pF tested seated B PT-OP-Q Treatments Start: 11/22/19 10:51 Freq: Status: Active Protocol: Document 11/22/19 13:50 [facility] (Rec: 11/22/19 14:32 [facility] [id number]) Therapeutic Exercises Supine Exercises SLR Side right Reps/Minutes 10 SAQ Side right Reps/Minutes 5 sec x5 heel slide Side right Reps/Minutes 5 ext Supine Exercise Name passive Side right Reps/Minutes 30 sec quad Supine Exercise Name set Side bilateral Reps/Minutes 5 sec x5 ankle ROM Supine Exercise Name APs Side bilateral Reps/Minutes 10 Sitting Exercises Hamstring curls Sitting Exercise Name flex w/scoot fwd Side right Reps/Minutes 10 sec Therapeutic Activity Therapeutic Activity packet Name edu on packet and set up with pillow under lower leg & icing bed mobility Name edu for use of cane for RLE in and out of bed walker use Name Step to gait taught with use of walker offloading 100ft Stair Training Name Stairs Reps/Minutes ascend and descend 3 steps 3x Comments step to step cane and use of rail for edu on how to do after surgery Sit to Stand Name edu w/RLE out in front PT-OP-T Assessment and Plan Start: 11/22/19 10:51 Freq: Status: Active Protocol: Document 11/22/19 13:50 [facility] (Rec: 11/22/19 14:32 [facility] [id number]) Physical Therapy Assessment Rehab Potential Rehabilitation Potential Excellent Evaluation Complexity Number of Personal Factors/Comorbidities 3 or More Number of Body Systems Impaired 4 or More Clinical Presentation at Evaluation Evolving Impairments Impairments Activity Tolerance,Balance, Functional Activities, Functional Mobility,Gait,Pain, Posture,ROM,Soft Tissue Mobility,Strength,Transfers Goals Four Custom Wood Stair Builder Goal (LTG) Pt will be able to return to gardening without difficulty Three Impairment ROM Short Term Goal (STG) Pt will have 0-120 deg ROM after surgery. Custom Wood Stair Builder Goal (LTG) Pt will be able to have enough ROM and control to ascend and descend stairs reciprocally Two Impairment strength Short Term Goal (STG) Pt will be indep wtih HEP Custom Wood Stair Builder Goal (LTG) Pt will have >4+/5 LE in order to improved stability to allow improved mobility at home. One Skilled Nursing Goal (LTG) Pt will be able to demonstrate ability to do HEP for after surgery, use of walker and appropriate transfer techniques prior to surgery LTG Duration 12/22/19 Assessment Summary Assessment Pt presents for pre-op appointment prior to R TKA. She was able to demonstrate understanding of all education for pre-op learning. 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 She will require reassessment upon return to clinic after R TKA. Physical Therapy Plan Frequency and Duration Frequency of Treatment 1x/Week Duration of Treatment 1 month Plan of Care Start Date 11/22/19 Plan of Care End Date 12/22/19 Therapeutic Interventions Therapeutic Interventions Aquatic Therapy,Balance Training,Coordination Training ,Gait Training,Home Exercise Program,Joint Mobilizations, Manual Therapy,Neuromuscular Re-education,Patient/Caregiver Education,Self-Care/Home Management,Soft Tissue Mobilization,Taping, Therapeutic Activities, Therapeutic Exercises Modalities Cold Pack/Ice Massage,Electric Stimulation,Hot Packs, Infrared Therapy Next Visit Focus/Plan Next Note Type Re-Evaluation Next Visit Plan review HEP & progress HEP as appropriate after reassessment after surgery
--- NOTE | 2019-11-22 18:47 | PT.OPPOC ---
Physical, Occupational & Speech Therapy At [facility] Current Diagnoses Unilateral primary osteoarthritis, unspecified knee (11/22/19) Difficulty in walking, not elsewhere classified (11/22/19) Weakness (11/22/19) Visit Care Team Role Provider Type Richie Lamb MD Primary Care Provider Physician Specialty: Family Practice Address: [address] [place] [address], [facility] [place], [address] Email: [email or web address] Brian Flynn MD Attending Provider Physician Referring Provider Specialty: Orthopedic Surgery Address: [address] [place] [address], [place], [address] Email: [email or web address] Plan Of Care PT-OP-T Assessment and Plan Start: 11/22/19 10:51 Freq: Status: Active Protocol: Document 11/22/19 13:50 [facility] (Rec: 11/22/19 14:32 [facility] [id number]) Physical Therapy Assessment Rehab Potential Rehabilitation Potential Excellent Evaluation Complexity Number of Personal Factors/Comorbidities 3 or More Number of Body Systems Impaired 4 or More Clinical Presentation at Evaluation Evolving Impairments Impairments Activity Tolerance,Balance, Functional Activities, Functional Mobility,Gait,Pain, Posture,ROM,Soft Tissue Mobility,Strength,Transfers Goals Four Dispatcher Relay Goal (LTG) Pt will be able to return to gardening without difficulty Three Impairment ROM Short Term Goal (STG) Pt will have 0-120 deg ROM after surgery. Dispatcher Relay Goal (LTG) Pt will be able to have enough ROM and control to ascend and descend stairs reciprocally Two Impairment strength Short Term Goal (STG) Pt will be indep wtih HEP Intermediate Goal (LTG) Pt will have >4+/5 LE in order to improved stability to allow improved mobility at home. One Dispatcher Relay Goal (LTG) Pt will be able to demonstrate ability to do HEP for after surgery, use of walker and appropriate transfer techniques prior to surgery LTG Duration 12/22/19 Assessment Summary Assessment Pt presents for pre-op appointment prior to R TKA. She was able to demonstrate understanding of all education for pre-op learning. 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 She will require reassessment upon return to clinic after R TKA. Physical Therapy Plan Frequency and Duration Frequency of Treatment 1x/Week Duration of Treatment 1 month Plan of Care Start Date 11/22/19 Plan of Care End Date 12/22/19 Therapeutic Interventions Therapeutic Interventions Aquatic Therapy,Balance Training,Coordination Training ,Gait Training,Home Exercise Program,Joint Mobilizations, Manual Therapy,Neuromuscular Re-education,Patient/Caregiver Education,Self-Care/Home Management,Soft Tissue Mobilization,Taping, Therapeutic Activities, Therapeutic Exercises Modalities Cold Pack/Ice Massage,Electric Stimulation,Hot Packs, Infrared Therapy Next Visit Focus/Plan Next Note Type Re-Evaluation Next Visit Plan review HEP & progress HEP as appropriate after reassessment after surgery Plan of Care Dates Plan of Care Start Date 11/22/19 Plan of Care End Date 12/22/19 Electronically Signed by: Fely Kelley, PT 11/22/19 0346 Please Sign and Return: I have reviewed this Plan of Care and certify that the skilled therapy services above are required to meet the patient?s needs. Physician Signature Date Printed Name and Credentials Clinical Instructor Signature Printed Name and Credentials
--- NOTE | 2019-12-21 18:21 | PT.OTN ---
Current Diagnoses Unilateral primary osteoarthritis, unspecified knee (12/21/19) Difficulty in walking, not elsewhere classified (12/21/19) Weakness (12/21/19) Physical Therapy Treatment Note PT-OP-A Visit Information Start: 11/22/19 10:51 Freq: Status: Active Protocol: Document 12/21/19 13:14 [facility] (Rec: 12/21/19 13:41 [facility] [id number]) Out-Patient Physical Therapy Visit Information Visit Information Visit Type Treatment Note Visit Start Time 13:00 Visit Stop Time 13:45 Total Visit Minutes 45 Visit Number 2 PT-OP-B Current Condition Start: 11/22/19 10:51 Freq: Status: Active Protocol: Document 11/22/19 13:50 [facility] (Rec: 11/22/19 14:32 [facility] [id number]) Current Condition History of Current Condition Onset Date years Current Complaints R knee pain, planned R TKA 12/05 History of Current Condition Pt has R TKA scheduled for December 05. She has completed her reading from the MD. 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 Pt has a flat entry into her apartment. She has stairs to go up to her family's area but does not have to use them. Pt has had knee pain for years that has been getting worse. She has been doing exercises and she notes crepitius with movement. Treatment Goals Patient/Caregiver Goals gardening, getting up/down to/ from hands/knees PT-OP-C Subjective Start: 11/22/19 10:51 Freq: Status: Active Protocol: Document 12/21/19 13:14 [facility] (Rec: 12/21/19 13:41 [facility] [id number]) OP-PT Subjective Patient Comments Patient Comments pt reports she went in for her Right TKA and it was found that she had a infection in her right great toe. Surgery was not performed. She is now on antibiotics. Her next surgery date is not yet scheduled but Nevaeh would like a few visits of strength training prior to her surgery PT-OP-G Mobility & Gait Start: 11/22/19 10:51 Freq: Status: Active Protocol: Document 11/22/19 13:50 [facility] (Rec: 11/22/19 14:47 [facility] [id number]) OP Mobility Evaluation Bed Mobility Supine to and from Sit able to do with cane to assit RLE when educated, able without Transfers Sit to Stand edu on leg out and able to stand with RLE out in front OP Gait Assessment Comments Gait Comments able to ambulate without walker with lat leaning; able to do step to with walker with education Stair Climbing Evaluation Comments Stair Climbing Comments able to do with step to gait iwth rail and cane with eudcation PT-OP-K Range of Motion Start: 11/22/19 10:51 Freq: Status: Active Protocol: Document 11/22/19 13:50 [facility] (Rec: 11/22/19 14:32 [facility] [id number]) Knee Goniometric Range of Motion Knee Right Flexion Active (degrees) 121 Extension Active (degrees) 4 Left Flexion Active (degrees) 123 Extension Active (degrees) 0 PT-OP-M Strength Start: 11/22/19 10:51 Freq: Status: Active Protocol: Document 11/22/19 13:50 [facility] (Rec: 11/22/19 14:32 [facility] [id number]) Hip Strength Hip Manual Muscle Testing Right Flexion (L2) 3+ Fair+ Abduction 3 Fair External Rotation 3+ Fair+ Internal Rotation 4 Good Left Flexion (L2) 3+ Fair+ Abduction 3+ Fair+ External Rotation 4 Good Internal Rotation 4- Good- Knee Strength Knee Manual Muscle Testing Left Flexion (S2) 4+ Good+ Extension (L3) 4 Good Right Flexion (S2) 4+ Good+ Extension (L3) 4 Good Ankle/Foot Strength Ankle and Foot Manual Muscle Testing Right Dorsiflexion (L4) 5 Normal Plantarflexion (S1) 5 Normal Left Dorsiflexion (L4) 5 Normal Plantarflexion (S1) 5 Normal Comments pF tested seated B PT-OP-Q Treatments Start: 11/22/19 10:51 Freq: Status: Active Protocol: Document 12/21/19 13:14 [facility] (Rec: 12/21/19 13:41 [facility] [id number]) Cardio Equipment Recumbent Bicycle Duration (Minutes) 5 Gym Equipment Cable Column (Body Solid) Hip Adduction Details 20# Resistance 3x10 reps Leg Extension Details leg extension Resistance 50# Reps/Time 3x10 reps Leg Curl Details hamstring curl Resistance 40# Reps/Time 3x10 reps Shuttle Recovery Unilateral Squats Details Unilateral Squats Resistance 50# Shuttle Recovery Platform Stable Reps/Time 3x10 each side Bilateral Heel Raises Details Bilateral Heel Raise Resistance 100# Shuttle Recovery Platform Stable Reps/Time 2x10 Bilateral Squats Details Bilateral Squats Resistance 100# Shuttle Recovery Platform Stable Reps/Time 3x10 Shuttle Balance Blue chains Details WBOS, NBOS, stagger (hands hover rail) Reps/Duration 3 min total Comments red chains, head turns yellow chains Details EO/EC, narrow stance, modified tandem stance Reps/Duration 10 minutes Comments Attempted work on blue chains, but was too challenging for pt. Red chains provided just- right challenge with pt reporting she feels her ankles working a lot. Therapeutic Exercises Supine Exercises heel slide Side right Reps/Minutes 5 Sitting Exercises Hamstring curls Sitting Exercise Name flex w/scoot fwd Side right Reps/Minutes 10 sec calf stretch Sitting Exercise Name calf stretch Side right Equipment Used strap Reps/Minutes 30x3 3 Sitting Exercise Name Hip abduction Side bilateral Resistance YTB Reps/Minutes 3X10 Comments 3 sec hold, upright posture and core stablization 2 Sitting Exercise Name Seated Marching Side bilateral Resistance 5# Reps/Minutes 2 min 1 Sitting Exercise Name LAQ Side bilateral Resistance 5# Reps/Minutes 2x10 Comments 3 s hold PF stretching Side right Reps/Minutes 30 sec x3 PT-OP-T Assessment and Plan Start: 11/22/19 10:51 Freq: Status: Active Protocol: Document 12/21/19 13:49 [facility] (Rec: 12/21/19 13:51 [facility] [id number]) Physical Therapy Assessment Assessment Summary Assessment pt returns to PT today. She was supposed to have had her TKA last week however once she was prepped it was found that she had a toe infection on her great toe on the right side so surgery was canceled. Nevaeh would like sterngthening prior to her surgery. She did well today with her exercise, pain with full knee extension. Physical Therapy Plan Next Visit Focus/Plan Next Note Type Treatment Note Next Visit Plan continue to work on pre-op strengthening as needed prior to her right TKA. She does not yet have a scheduled surgery date.
--- NOTE | 2019-12-27 13:52 | PT.OTN ---
Current Diagnoses Unilateral primary osteoarthritis, unspecified knee (12/27/19) Difficulty in walking, not elsewhere classified (12/27/19) Weakness (12/27/19) Physical Therapy Treatment Note PT-OP-A Visit Information Start: 11/22/19 10:51 Freq: Status: Active Protocol: Document 12/27/19 13:11 [facility] (Rec: 12/27/19 13:51 [facility] [id number]) Out-Patient Physical Therapy Visit Information Visit Information Visit Type Progress Note Visit Start Time 13:05 Visit Stop Time 13:45 Total Visit Minutes 40 Visit Number 3 PT-OP-B Current Condition Start: 11/22/19 10:51 Freq: Status: Active Protocol: Document 11/22/19 13:50 [facility] (Rec: 11/22/19 14:32 [facility] [id number]) Current Condition History of Current Condition Onset Date years Current Complaints R knee pain, planned R TKA 12/05 History of Current Condition Pt has R TKA scheduled for December 05. She has completed her reading from the MD. 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 Pt has a flat entry into her apartment. She has stairs to go up to her family's area but does not have to use them. Pt has had knee pain for years that has been getting worse. She has been doing exercises and she notes crepitius with movement. Treatment Goals Patient/Caregiver Goals gardening, getting up/down to/ from hands/knees PT-OP-C Subjective Start: 11/22/19 10:51 Freq: Status: Active Protocol: Document 12/27/19 13:11 [facility] (Rec: 12/27/19 13:51 [facility] [id number]) OP-PT Subjective Patient Comments Patient Comments Pt reports she has been getting her exercises in. Yesterday she couldn't sleep so did them 3x. PT-OP-G Mobility & Gait Start: 11/22/19 10:51 Freq: Status: Active Protocol: Document 11/22/19 13:50 [facility] (Rec: 11/22/19 14:47 [facility] [id number]) OP Mobility Evaluation Bed Mobility Supine to and from Sit able to do with cane to assit RLE when educated, able without Transfers Sit to Stand edu on leg out and able to stand with RLE out in front OP Gait Assessment Comments Gait Comments able to ambulate without walker with lat leaning; able to do step to with walker with education Stair Climbing Evaluation Comments Stair Climbing Comments able to do with step to gait iwth rail and cane with eudcation PT-OP-K Range of Motion Start: 11/22/19 10:51 Freq: Status: Active Protocol: Document 11/22/19 13:50 [facility] (Rec: 11/22/19 14:32 [facility] [id number]) Knee Goniometric Range of Motion Knee Right Flexion Active (degrees) 121 Extension Active (degrees) 4 Left Flexion Active (degrees) 123 Extension Active (degrees) 0 PT-OP-M Strength Start: 11/22/19 10:51 Freq: Status: Active Protocol: Document 11/22/19 13:50 [facility] (Rec: 11/22/19 14:32 [facility] [id number]) Hip Strength Hip Manual Muscle Testing Right Flexion (L2) 3+ Fair+ Abduction 3 Fair External Rotation 3+ Fair+ Internal Rotation 4 Good Left Flexion (L2) 3+ Fair+ Abduction 3+ Fair+ External Rotation 4 Good Internal Rotation 4- Good- Knee Strength Knee Manual Muscle Testing Left Flexion (S2) 4+ Good+ Extension (L3) 4 Good Right Flexion (S2) 4+ Good+ Extension (L3) 4 Good Ankle/Foot Strength Ankle and Foot Manual Muscle Testing Right Dorsiflexion (L4) 5 Normal Plantarflexion (S1) 5 Normal Left Dorsiflexion (L4) 5 Normal Plantarflexion (S1) 5 Normal Comments pF tested seated B PT-OP-Q Treatments Start: 11/22/19 10:51 Freq: Status: Active Protocol: Document 12/27/19 13:11 [facility] (Rec: 12/27/19 13:51 [facility] [id number]) Cardio Equipment Recumbent Stepper (Sci-Fit) Duration (Minutes) 6 Resistance 4 Seat Position 15 Gym Equipment Cable Column (Body Solid) Hip Abduction Resistance 30# Reps/Time 2x15 Leg Extension Details leg extension Resistance 40# Reps/Time 2x15 Leg Curl Details hamstring curl Resistance 50# Reps/Time 2x15 Shuttle Recovery Unilateral Squats Details Unilateral Squats Resistance 50# Shuttle Recovery Platform Stable Reps/Time 2x15 ea Bilateral Squats Details Bilateral Squats Resistance 100# Shuttle Recovery Platform Stable Reps/Time 2x15 Shuttle Balance red clips Details fwd & side: WBOS & NBOS Therapeutic Exercises Standing Exercises 5 Standing Exercise Name sit<>stand Reps/Minutes 5 4 Standing Exercise Name sidestep Side bilateral Equipment Used yellow tband Reps/Minutes 2x20ft 3 Standing Exercise Name back walk Side bilateral Equipment Used yellow tband Reps/Minutes 20ftx2 PT-OP-T Assessment and Plan Start: 11/22/19 10:51 Freq: Status: Active Protocol: Document 12/27/19 13:11 [facility] (Rec: 12/27/19 13:51 [facility] [id number]) Physical Therapy Assessment Goals Two Care Home Goal (LTG) Pt will improve strength by 1 mmt grade prior to surgery for greater ease of recovery after surgery LTG Duration 02/27/20 One Care Home Goal (LTG) Pt will be able to demonstrate ability to do HEP for after surgery, use of walker and appropriate transfer techniques prior to surgery LTG Duration 02/27/20 Assessment Summary Assessment Pt is doing well with HEP at home but would bnefit from strengthening while waiting to get surgery.THis will allow for improved ability to recover after surgery. Pt able to tolerate red clips with challenge. Cueing for exercises to go slow through range Physical Therapy Plan Frequency and Duration Frequency of Treatment 1x/Week Duration of Treatment 2 month Plan of Care Start Date 12/27/19 Plan of Care End Date 02/27/20 Therapeutic Interventions Therapeutic Interventions Aquatic Therapy,Balance Training,Coordination Training ,Gait Training,Home Exercise Program,Joint Mobilizations, Manual Therapy,Neuromuscular Re-education,Patient/Caregiver Education,Self-Care/Home Management,Soft Tissue Mobilization,Taping, Therapeutic Activities, Therapeutic Exercises Modalities Cold Pack/Ice Massage,Electric Stimulation,Hot Packs, Infrared Therapy Next Visit Focus/Plan Next Note Type Treatment Note Next Visit Plan continue to work on pre-op strengthening as needed prior to her right TKA. She does not yet have a scheduled surgery date.
--- NOTE | 2020-01-02 15:14 | PT.OTN ---
Current Diagnoses Unilateral primary osteoarthritis, unspecified knee (01/02/20) Difficulty in walking, not elsewhere classified (01/02/20) Weakness (01/02/20) Physical Therapy Treatment Note PT-OP-A Visit Information Start: 11/22/19 10:51 Freq: Status: Active Protocol: Document 01/02/20 15:09 [facility] (Rec: 01/02/20 15:14 [facility] [id number]) Out-Patient Physical Therapy Visit Information Visit Information Visit Type Treatment Note Visit Start Time 13:00 Visit Stop Time 13:45 Total Visit Minutes 45 Visit Number 4 PT-OP-B Current Condition Start: 11/22/19 10:51 Freq: Status: Active Protocol: Document 11/22/19 13:50 [facility] (Rec: 11/22/19 14:32 [facility] [id number]) Current Condition History of Current Condition Onset Date years Current Complaints R knee pain, planned R TKA 12/05 History of Current Condition Pt has R TKA scheduled for December 05. She has completed her reading from the MD. 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 Pt has a flat entry into her apartment. She has stairs to go up to her family's area but does not have to use them. Pt has had knee pain for years that has been getting worse. She has been doing exercises and she notes crepitius with movement. Treatment Goals Patient/Caregiver Goals gardening, getting up/down to/ from hands/knees PT-OP-C Subjective Start: 11/22/19 10:51 Freq: Status: Active Protocol: Document 01/02/20 15:09 [facility] (Rec: 01/02/20 15:14 [facility] [id number]) OP-PT Subjective Patient Comments Patient Comments pt reports she is doing well, she see's her foot docor in a week. PT-OP-G Mobility & Gait Start: 11/22/19 10:51 Freq: Status: Active Protocol: Document 11/22/19 13:50 [facility] (Rec: 11/22/19 14:47 [facility] [id number]) OP Mobility Evaluation Bed Mobility Supine to and from Sit able to do with cane to assit RLE when educated, able without Transfers Sit to Stand edu on leg out and able to stand with RLE out in front OP Gait Assessment Comments Gait Comments able to ambulate without walker with lat leaning; able to do step to with walker with education Stair Climbing Evaluation Comments Stair Climbing Comments able to do with step to gait iwth rail and cane with eudcation PT-OP-K Range of Motion Start: 11/22/19 10:51 Freq: Status: Active Protocol: Document 11/22/19 13:50 [facility] (Rec: 11/22/19 14:32 [facility] [id number]) Knee Goniometric Range of Motion Knee Right Flexion Active (degrees) 121 Extension Active (degrees) 4 Left Flexion Active (degrees) 123 Extension Active (degrees) 0 PT-OP-M Strength Start: 11/22/19 10:51 Freq: Status: Active Protocol: Document 11/22/19 13:50 [facility] (Rec: 11/22/19 14:32 [facility] [id number]) Hip Strength Hip Manual Muscle Testing Right Flexion (L2) 3+ Fair+ Abduction 3 Fair External Rotation 3+ Fair+ Internal Rotation 4 Good Left Flexion (L2) 3+ Fair+ Abduction 3+ Fair+ External Rotation 4 Good Internal Rotation 4- Good- Knee Strength Knee Manual Muscle Testing Left Flexion (S2) 4+ Good+ Extension (L3) 4 Good Right Flexion (S2) 4+ Good+ Extension (L3) 4 Good Ankle/Foot Strength Ankle and Foot Manual Muscle Testing Right Dorsiflexion (L4) 5 Normal Plantarflexion (S1) 5 Normal Left Dorsiflexion (L4) 5 Normal Plantarflexion (S1) 5 Normal Comments pF tested seated B PT-OP-Q Treatments Start: 11/22/19 10:51 Freq: Status: Active Protocol: Document 01/02/20 15:09 [facility] (Rec: 01/02/20 15:14 [facility] [id number]) Cardio Equipment Bicycle (Upright) Duration (Minutes) 6 Resistance 5 Seat Position seat 6 Gym Equipment Cable Column (Body Solid) Hip Abduction Resistance 30# Reps/Time 2x15 Leg Extension Details leg extension Resistance 40# Reps/Time 2x15 Shuttle Recovery Unilateral Squats Details Unilateral Squats Resistance 50# Shuttle Recovery Platform Stable Reps/Time 2x15 ea Bilateral Heel Raises Details Bilateral Heel Raise Resistance 100# Shuttle Recovery Platform Stable Reps/Time 2x10 Bilateral Squats Details Bilateral Squats Resistance 100# Shuttle Recovery Platform Stable Reps/Time 2x15 Therapeutic Exercises Sitting Exercises calf stretch Sitting Exercise Name calf stretch Side right Equipment Used strap Reps/Minutes 30x3 Standing Exercises 4 Standing Exercise Name sidestep Side bilateral Equipment Used yellow tband Reps/Minutes 2x20ft 3 Standing Exercise Name back walk Side bilateral Equipment Used yellow tband Reps/Minutes 20ftx2 2 Standing Exercise Name standing squats with UE support Reps/Minutes x 10 Comments chair placed behind and verbal cues needed to hinge at her hips PT-OP-T Assessment and Plan Start: 11/22/19 10:51 Freq: Status: Active Protocol: Document 01/02/20 15:09 [facility] (Rec: 01/02/20 15:14 [facility] [id number]) Physical Therapy Assessment Assessment Summary Assessment needs verbal cues for hip hinge, single leg balance is difficult and strengthening her lateral hip stabilizers may help with balance. Continue working on strength as Nevaeh awaits knee surgery Physical Therapy Plan Next Visit Focus/Plan Next Note Type Treatment Note Next Visit Plan continue to work on pre-op strengthening as needed prior to her right TKA. She does not yet have a scheduled surgery date.
--- NOTE | 2020-01-09 16:32 | PT.OTN ---
Current Diagnoses Unilateral primary osteoarthritis, unspecified knee (01/09/20) Difficulty in walking, not elsewhere classified (01/09/20) Weakness (01/09/20) Physical Therapy Treatment Note PT-OP-A Visit Information Start: 11/22/19 10:51 Freq: Status: Active Protocol: Document 01/09/20 13:04 [facility] (Rec: 01/09/20 13:10 [facility] [id number]) Out-Patient Physical Therapy Visit Information Visit Information Visit Type Treatment Note Visit Start Time 13:00 Visit Stop Time 13:45 Total Visit Minutes 45 Visit Number 5 PT-OP-B Current Condition Start: 11/22/19 10:51 Freq: Status: Active Protocol: Document 11/22/19 13:50 [facility] (Rec: 11/22/19 14:32 [facility] [id number]) Current Condition History of Current Condition Onset Date years Current Complaints R knee pain, planned R TKA 12/05 History of Current Condition Pt has R TKA scheduled for December 05. She has completed her reading from the MD. 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 Pt has a flat entry into her apartment. She has stairs to go up to her family's area but does not have to use them. Pt has had knee pain for years that has been getting worse. She has been doing exercises and she notes crepitius with movement. Treatment Goals Patient/Caregiver Goals gardening, getting up/down to/ from hands/knees PT-OP-C Subjective Start: 11/22/19 10:51 Freq: Status: Active Protocol: Document 01/09/20 13:04 [facility] (Rec: 01/09/20 13:10 [facility] [id number]) OP-PT Subjective Patient Comments Patient Comments pt reports she has her MD visit mike to recheck her foot PT-OP-G Mobility & Gait Start: 11/22/19 10:51 Freq: Status: Active Protocol: Document 11/22/19 13:50 [facility] (Rec: 11/22/19 14:47 [facility] [id number]) OP Mobility Evaluation Bed Mobility Supine to and from Sit able to do with cane to assit RLE when educated, able without Transfers Sit to Stand edu on leg out and able to stand with RLE out in front OP Gait Assessment Comments Gait Comments able to ambulate without walker with lat leaning; able to do step to with walker with education Stair Climbing Evaluation Comments Stair Climbing Comments able to do with step to gait iwth rail and cane with eudcation PT-OP-K Range of Motion Start: 11/22/19 10:51 Freq: Status: Active Protocol: Document 11/22/19 13:50 [facility] (Rec: 11/22/19 14:32 [facility] [id number]) Knee Goniometric Range of Motion Knee Right Flexion Active (degrees) 121 Extension Active (degrees) 4 Left Flexion Active (degrees) 123 Extension Active (degrees) 0 PT-OP-M Strength Start: 11/22/19 10:51 Freq: Status: Active Protocol: Document 11/22/19 13:50 [facility] (Rec: 11/22/19 14:32 [facility] [id number]) Hip Strength Hip Manual Muscle Testing Right Flexion (L2) 3+ Fair+ Abduction 3 Fair External Rotation 3+ Fair+ Internal Rotation 4 Good Left Flexion (L2) 3+ Fair+ Abduction 3+ Fair+ External Rotation 4 Good Internal Rotation 4- Good- Knee Strength Knee Manual Muscle Testing Left Flexion (S2) 4+ Good+ Extension (L3) 4 Good Right Flexion (S2) 4+ Good+ Extension (L3) 4 Good Ankle/Foot Strength Ankle and Foot Manual Muscle Testing Right Dorsiflexion (L4) 5 Normal Plantarflexion (S1) 5 Normal Left Dorsiflexion (L4) 5 Normal Plantarflexion (S1) 5 Normal Comments pF tested seated B PT-OP-Q Treatments Start: 11/22/19 10:51 Freq: Status: Active Protocol: Document 01/09/20 13:04 [facility] (Rec: 01/09/20 13:10 [facility] [id number]) Cardio Equipment Bicycle (Upright) Duration (Minutes) 6 Resistance 5 Seat Position seat 6 Gym Equipment Cable Column (Body Solid) Hip Abduction Resistance 30# Reps/Time 2x15 Hip Adduction Details 20# Resistance 3x10 reps Leg Extension Details leg extension Resistance 40# Reps/Time 2x15 Leg Curl Details hamstring curl Resistance 50# Reps/Time 2x15 Shuttle Recovery Unilateral Squats Details Unilateral Squats Resistance 50# Shuttle Recovery Platform Stable Reps/Time 2x15 ea Bilateral Heel Raises Details Bilateral Heel Raise Resistance 100# Shuttle Recovery Platform Stable Reps/Time 2x10 Bilateral Squats Details Bilateral Squats Resistance 100# Shuttle Recovery Platform Stable Reps/Time 2x15 Therapeutic Exercises Standing Exercises 2 Standing Exercise Name standing squats with UE support Reps/Minutes x 10 Comments chair placed behind and verbal cues needed to hinge at her hips 1 Standing Exercise Name Side steps Equipment Used YTB Reps/Minutes 5 laps Comments cues for forward facing toes PT-OP-T Assessment and Plan Start: 11/22/19 10:51 Freq: Status: Active Protocol: Document 01/09/20 16:30 [facility] (Rec: 01/09/20 16:32 [facility] [id number]) Physical Therapy Assessment Assessment Summary Assessment pt fatigued by the end of treatment today but doing well tolerating all exercises. Some c/o right knee pain after the shuttle squats. Physical Therapy Plan Frequency and Duration Frequency of Treatment 1x/Week Duration of Treatment 2 month Plan of Care Start Date 12/27/19 Plan of Care End Date 02/27/20 Therapeutic Interventions Therapeutic Interventions Aquatic Therapy,Balance Training,Coordination Training ,Gait Training,Home Exercise Program,Joint Mobilizations, Manual Therapy,Neuromuscular Re-education,Patient/Caregiver Education,Self-Care/Home Management,Soft Tissue Mobilization,Taping, Therapeutic Activities, Therapeutic Exercises Modalities Cold Pack/Ice Massage,Electric Stimulation,Hot Packs, Infrared Therapy Next Visit Focus/Plan Next Note Type Treatment Note Next Visit Plan continue to work on pre-op strengthening as needed prior to her right TKA. She does not yet have a scheduled surgery date.
--- NOTE | 2020-01-16 16:50 | PT.OTN ---
Current Diagnoses Unilateral primary osteoarthritis, unspecified knee (01/16/20) Difficulty in walking, not elsewhere classified (01/16/20) Weakness (01/16/20) Physical Therapy Treatment Note PT-OP-A Visit Information Start: 11/22/19 10:51 Freq: Status: Active Protocol: Document 01/16/20 16:40 [facility] (Rec: 01/16/20 16:50 [facility] [id number]) Out-Patient Physical Therapy Visit Information Visit Information Visit Type Treatment Note Visit Start Time 13:00 Visit Stop Time 13:45 Total Visit Minutes 45 Visit Number 6 PT-OP-B Current Condition Start: 11/22/19 10:51 Freq: Status: Active Protocol: Document 11/22/19 13:50 [facility] (Rec: 11/22/19 14:32 [facility] [id number]) Current Condition History of Current Condition Onset Date years Current Complaints R knee pain, planned R TKA 12/05 History of Current Condition Pt has R TKA scheduled for December 05. She has completed her reading from the MD. 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 Pt has a flat entry into her apartment. She has stairs to go up to her family's area but does not have to use them. Pt has had knee pain for years that has been getting worse. She has been doing exercises and she notes crepitius with movement. Treatment Goals Patient/Caregiver Goals gardening, getting up/down to/ from hands/knees PT-OP-C Subjective Start: 11/22/19 10:51 Freq: Status: Active Protocol: Document 01/16/20 16:40 [facility] (Rec: 01/16/20 16:50 [facility] [id number]) OP-PT Subjective Patient Comments Patient Comments Pt reports she saw her foot doctor and was told she still needs to wait and recheck in with him in three more weeks. She also has a ulcer under one of her toes that she needs to be really careful with this. She wishes to work on her exercises now at home until surgery to save her PT visits PT-OP-G Mobility & Gait Start: 11/22/19 10:51 Freq: Status: Active Protocol: Document 11/22/19 13:50 [facility] (Rec: 11/22/19 14:47 [facility] [id number]) OP Mobility Evaluation Bed Mobility Supine to and from Sit able to do with cane to assit RLE when educated, able without Transfers Sit to Stand edu on leg out and able to stand with RLE out in front OP Gait Assessment Comments Gait Comments able to ambulate without walker with lat leaning; able to do step to with walker with education Stair Climbing Evaluation Comments Stair Climbing Comments able to do with step to gait iwth rail and cane with eudcation PT-OP-K Range of Motion Start: 11/22/19 10:51 Freq: Status: Active Protocol: Document 11/22/19 13:50 [facility] (Rec: 11/22/19 14:32 [facility] [id number]) Knee Goniometric Range of Motion Knee Right Flexion Active (degrees) 121 Extension Active (degrees) 4 Left Flexion Active (degrees) 123 Extension Active (degrees) 0 PT-OP-M Strength Start: 11/22/19 10:51 Freq: Status: Active Protocol: Document 11/22/19 13:50 [facility] (Rec: 11/22/19 14:32 [facility] [id number]) Hip Strength Hip Manual Muscle Testing Right Flexion (L2) 3+ Fair+ Abduction 3 Fair External Rotation 3+ Fair+ Internal Rotation 4 Good Left Flexion (L2) 3+ Fair+ Abduction 3+ Fair+ External Rotation 4 Good Internal Rotation 4- Good- Knee Strength Knee Manual Muscle Testing Left Flexion (S2) 4+ Good+ Extension (L3) 4 Good Right Flexion (S2) 4+ Good+ Extension (L3) 4 Good Ankle/Foot Strength Ankle and Foot Manual Muscle Testing Right Dorsiflexion (L4) 5 Normal Plantarflexion (S1) 5 Normal Left Dorsiflexion (L4) 5 Normal Plantarflexion (S1) 5 Normal Comments pF tested seated B PT-OP-Q Treatments Start: 11/22/19 10:51 Freq: Status: Active Protocol: Document 01/16/20 16:40 [facility] (Rec: 01/16/20 16:50 [facility] [id number]) Cardio Equipment Bicycle (Upright) Duration (Minutes) 6 Resistance 5 Seat Position seat 6 Gym Equipment Shuttle Recovery Unilateral Squats Details Unilateral Squats Resistance 50# Shuttle Recovery Platform Stable Reps/Time 2x15 ea Bilateral Heel Raises Details Bilateral Heel Raise Resistance 100# Shuttle Recovery Platform Stable Reps/Time 2x10 Bilateral Squats Details Bilateral Squats Resistance 100# Shuttle Recovery Platform Stable Reps/Time 2x15 Therapeutic Exercises Supine Exercises bridges Supine Exercise Name bridges Reps/Minutes 2 x 10 reps SLR Side right Reps/Minutes 10 Sitting Exercises 4 Sitting Exercise Name seated hip abduction with band Equipment Used level 3 Reps/Minutes 3 x 10 reps 2 Sitting Exercise Name Seated Marching Side bilateral Resistance 5# Reps/Minutes 2 min Standing Exercises standing hip extension and abduction Standing Exercise Name standing hip extension and abduction Reps/Minutes 3 x 10 reps 2 Standing Exercise Name standing squats with UE support Reps/Minutes x 10 Comments chair placed behind and verbal cues needed to hinge at her hips 1 Standing Exercise Name Side steps Equipment Used YTB Reps/Minutes 5 laps Comments cues for forward facing toes PT-OP-T Assessment and Plan Start: 11/22/19 10:51 Freq: Status: Active Protocol: Document 01/16/20 16:40 [facility] (Rec: 01/16/20 16:50 [facility] [id number]) Physical Therapy Assessment Assessment Summary Assessment Nevaeh demonstrates good awareness of her exercise program. She will hold of on PT now until after her surgery . Physical Therapy Plan Frequency and Duration Frequency of Treatment 1x/Week Duration of Treatment 2 month Plan of Care Start Date 12/27/19 Plan of Care End Date 02/27/20 Therapeutic Interventions Therapeutic Interventions Aquatic Therapy,Balance Training,Coordination Training ,Gait Training,Home Exercise Program,Joint Mobilizations, Manual Therapy,Neuromuscular Re-education,Patient/Caregiver Education,Self-Care/Home Management,Soft Tissue Mobilization,Taping, Therapeutic Activities, Therapeutic Exercises Modalities Cold Pack/Ice Massage,Electric Stimulation,Hot Packs, Infrared Therapy Hold Physical Therapy Reason For Hold Hold PT as patient still has at least three weeks until she can schedule surgery due to her infection in her toe. She may end up needing to be discharged prior to her surgery due to the length of time inbetween. Next Visit Focus/Plan Next Note Type Treatment Note Next Visit Plan The next treatment will be a post op visit following TKA
--- NOTE | 2020-04-22 13:24 | PT.OPDS ---
Current Diagnoses Unilateral primary osteoarthritis, unspecified knee (01/16/20) Difficulty in walking, not elsewhere classified (01/16/20) Weakness (01/16/20) Visit Care Team Role Provider Type Richie Lamb MD Primary Care Provider Physician Specialty: Family Practice Address: [facility] [place], [address] Email: [email or web address] Brian Flynn MD Attending Provider Physician Referring Provider Specialty: Orthopedic Surgery Address: [address] [place] [address], [address] Email: [email or web address] Number Visit Number 6 Discharge Summary PT-OP-T Assessment and Plan Start: 11/22/19 10:51 Freq: Status: Active Protocol: Document 04/22/20 13:24 [email or web address] (Rec: 04/22/20 13:24 [email or web address] [email or web address]) Physical Therapy Assessment Assessment Summary Assessment Pt has new chart d/t had TKA. DC this chart Physical Therapy Plan Discharge Physical Therapy Discharge Reasons Change in Medical Status
== END 2020-04-23 13:25 | disposition home or self-care (01) ==
LOC: PHYS 13:00
PROVIDERS: PCP Family Medicine; Referring Provider Orthopaedic Surgery; Visit Provider Orthopaedic Surgery
DX: M17.10 Unilateral primary osteoarthritis, unspecified knee (principal); R53.1 Weakness; R26.2 Difficulty in walking, not elsewhere classified
CPT/HCPCS: 97110; 97112; 97162; 97530

== ENCOUNTER → 2020-04-02 10:50 | Outpatient (CLI) | payer MEDICARE, OTHER, SELFPAY ==
[2020-04-02 13:10] LABS: Add Manual Diff / Slide Review NO; Basophils Absolute Auto 0 /uL (0-100); Basophils Percent Auto 0.4 % (0-2); Eosinophils Absolute Auto 400 /uL (0-450); Eosinophils Percent Auto 6.2 % (2-4); Hematocrit 39.3 % (36-46); Hemoglobin 12.7 g/dL (12.0-16.0); Lymphocytes Absolute Auto 1600 /uL (1100-4500); Mean Corpuscular HGB Conc 32.4 % (30-36); Mean Corpuscular Hemoglobin 28.1 PG (26-34); Mean Corpuscular Volume 86.6 fL (80-100); Monocytes Absolute Auto 800 /uL (0-900); Monocytes Percent Auto 12.8 % (3-14); Neutrophils Absolute Auto 3500 /uL (1500-7000); Neutrophils Percent Auto 55.6 % (50-75); Platelet Count 402 X10^3/uL (150-400); Red Blood Cell Count 4.54 X10^6/uL (4.0-5.2); Red Cell Distribution Width 14.7 % (11.6-14.8); White Blood Cell Count 6.3 X10^3/uL (4.5-11.0)
[2020-04-02 13:47] LABS: Carbon Dioxide 33 mmol/L (22-32); Chloride 97 mmol/L (98-107); HEMOLYSIS < 15 (0-50); Potassium 4.4 mmol/L (3.4-5.1); Sodium 135 mmol/L (137-145)
== END ==
PROVIDERS: PCP Family Medicine; Referring Provider Orthopaedic Surgery; Visit Provider Orthopaedic Surgery
DX: Z01.812 Encounter for preprocedural laboratory examination (principal); Z01.818 Encounter for other preprocedural examination
CPT/HCPCS: 36415; 80051; 85025

== ENCOUNTER → 2020-04-07 09:09 | Outpatient (CLI) | payer MEDICARE, OTHER, SELFPAY ==
[2020-04-08 20:12] LABS: COVID19 Sendout Not Detected (Not Detect)
== END ==
PROVIDERS: PCP Family Medicine; Visit Provider Physician Assistant
DX: Z11.59 Encounter for screening for other viral diseases (principal)
CPT/HCPCS: 87635

== ENCOUNTER 2020-04-10 10:42 | Day surgery (SDC) | payer MEDICARE, OTHER, SELFPAY ==
[2020-04-03 12:42] VITALS: BMI 28.5
[2020-04-10] VITALS (12 sets, daily range): BP systolic 127–150; BP diastolic 57–80; PULSE 60–92; RESP 14–20; TEMP 35.7–37.1; O2SAT 94–97; BMI 29.1
--- NOTE | 2020-04-10 08:00 | DI.RAD.S_ITS ---
PROCEDURE: XR KNEE RT 1TO2V INDICATIONS: post op films. TECHNIQUE: 2 view(s) of the knee acquired. COMPARISON: [facility], , KNEE 1-2 VIEWS LEFT, 08/22/2012, 10:42. FINDINGS: Bones: Patient is status post knee joint arthroplasty. Hardware components are in expected positions. Visualized bony structures are intact. Soft tissues: Overlying postoperative changes are noted. IMPRESSION: Expected appearance of right knee arthroplasty. Dictated by: Megan Harp M.D. on 04/10/2020 at 14:50 Approved by: Megan Harp M.D. on 04/10/2020 at 14:51
[2020-04-10] MEDS: ACETAMINOPHEN 325 MG TABLET 975 MG PO (11:20)
[2020-04-10] MEDS: CELECOXIB 200 MG CAPSULE PO (11:21)
[2020-04-10] MEDS: LACTATED RINGERS 1,000 ML 42 ML IV (11:21)
[2020-04-10] MEDS: PREGABALIN 75 MG CAPSULE PO (11:21)
--- NOTE | 2020-04-10 11:44 | PM.PREOP ---
Pre-operative Note COVID-19 COVID-19 status: Negative Result date/Date tested (Pos, Neg/Pending): 04/08/20 Interval Note History & Physical reviewed/Exam performed by Physician: Yes Changes to H&P: No
--- NOTE | 2020-04-10 11:44 | PM.OP.1 ---
Operative Date/Time/Diagnoses Date of procedure: 04/10/20 Time of procedure: 14:13 Pre-op diagnosis: Right knee osteoarthritis Post-op diagnosis: same Procedure & Clinicians Procedure: Right total knee arthroplasty Same procedure as scheduled: Yes Indications: The patient presents today for total knee arthroplasty after failure of conservative treatment. The nature of the procedure including the risks and benefits, alternatives, postoperative course and expected outcome were discussed and all questions answered. Consent was obtained. Operative site confirmed and marked. Surgeon: Brian Flynn Operations Project Manager: Jules Corbett Anesthesia Type: General, Spinal and Local Operative Notes Closure Type: primary Specimen(s): none sent Prosthetic devices, grafts, tissues, transplants, or devices: Matt Persona TKA 10 CR femoral component, F stemmed tibial component, 10 MC polyethylene tray and [35] mm all poly patella. Applied: implant(s) Estimated Blood Loss (mL): 5 Blood products transfused: none Tourniquet time (min): 46 Procedure in detail: The patient was taken to the operative suite and placed under anesthesia. The patient was given prophylactic antibiotics prior to surgery. The patient was also given tranexamic acid, 1 g, just prior to surgery for postoperative hemostasis. The lateral knee was prepped and the joint injected with 20 mL of 1% Lidocaine with epinephrine. The knee was then prepped and draped in usual sterile fashion. The leg was exsanguinated with an Esmarch dressing and the tourniquet raised to 250 torr. A 15 cm anterior incision was made. Next a medial trivector arthrotomy was made. The extensor mechanism was marked to ensure accurate repair. Initial exposing dissection was carried out medially and laterally. The knee was then flexed and the intramedullary femoral guide thomas placed. The distal femoral cut was made in 5? of valgus at the +0 position. The femoral size was measured and the appropriate cutting block was then placed and the anterior, posterior and chamfer cuts made. The extramedullary tibial alignment thomas was then placed. The guide was set to remove approximately 10 mm from the less affected medial side. The cut end up being fairly even this far as the amount of bone taken from the medial and lateral side. The proximal tibial cut was then made with an oscillating saw. All meniscus and bony debris was then removed. Posterior femoral osteophytes removed with a curved osteotome. Flexion extension gaps were checked. There was just slight tightness laterally which was corrected doing a pie crust type release with a 15 blade of the lateral capsular structures. The soft tissues were then injected with a combination of 20 mL of half percent Marcaine with epinephrine and 20 mL of Exparel. The trial components were then placed. The knee was then extended and the patellar thickness was measured and a cut made removing approximately 9 mm of bone. The patella was then sized and drilled. Some excess lateral bone was excised and the patellofemoral ligament released. The knee went into full extension and flexion beyond 130?. There was excellent medial-lateral balance throughout motion. Patellar tracking was excellent. The trial components were removed and the knee was cleansed with Pulsavac irrigation and dried. The final components were cemented with high viscosity vacuum mixed bone cement with antibiotics. The joint was filled with a dilute Betadine solution. The knee was held in extension and the patellar clamped until the cement was adequately cured. The knee was then irrigated. The extensor mechanism was closed with 5 interrupted #1 Vicryl sutures and a running Quill suture at approximately 90 degrees of flexion. The joint was then injected with a combination of 1 g of tranexamic acid and 20 mL of quarter percent Marcaine with epinephrine. The subcutaneous tissue was closed with 2 0 Vicryl. The skin was closed with absorbable subcuticular sutures and surgical adhesive. An Aquacel dressing and Laci wrap were then applied. The patient tolerated the procedure well and was returned to recovery room in good condition. Complications: none Post-operative Condition: stable Disposition: PACU Plan for aftercare: [facility] Protocol.
[2020-04-10] MEDS: CEFAZOLIN 2 GM/100 ML FROZ.PIGGY IV ×2 (12:40→20:11)
--- NOTE | 2020-04-10 13:14 | SUR.OPER ---
Supine on padded OR bed. Pillow under head, arms secured on padded armboards <90 degree abduction. Safety belt across torso. Non-operative leg secured with tape over blanket over lower leg. Operative leg secured in DeMayo/Giovanni positioner. Foam padded brace at thigh of operative leg.
[2020-04-10] MEDS: LIDOCAINE 1% W/EPI 20 ML INJ (13:23)
[2020-04-10] MEDS: BUPIVACAINE 0.25% W/ EPI (PF) 40 ML, BUPIVACAINE LIPOSOME 266 MG, SODIUM CHLORIDE 0.9% ... INJ (13:24)
[2020-04-10] MEDS: BUPIVACAINE 0.25% W/ EPI (PF) 20 ML, TRANEXAMIC ACID 1,000 MG, SODIUM CHLORIDE 0.9% 10 ML INJ (13:26)
[2020-04-10] MEDS: SODIUM CHLORIDE IRRIG SOLUTION 250 ML, POVIDONE-IODINE SPONGE STICKS 1 APPLIC IRR (13:29)
[2020-04-10] MEDS: IBUPROFEN 400 MG TABLET PO ×3 (16:20→23:46)
[2020-04-10] MEDS: LACTATED RINGERS 1,000 ML 100 ML IV (16:20)
[2020-04-10] MEDS: ACETAMINOPHEN 325 MG TABLET 650 MG PO ×2 (16:21→20:10)
[2020-04-10] MEDS: OXYCODONE IR 5 MG TABLET PO (16:27)
[2020-04-10] MEDS: EZETIMIBE 10 MG TABLET PO (18:05)
--- NOTE | 2020-04-10 19:11 | PC.NURSE ---
Patient has been resting in bed this shift. Laci wrap to rt knee has been CDI, Asher drsg w/blinking green light noted. Pain has been controlled well with oxycodone. Patient has been A&O, calm and cooperative.
[2020-04-10] MEDS: ASPIRIN EC 81 MG TABLET PO (20:10)
[2020-04-10] MEDS: DOCUSATE 100 MG CAPSULE PO (20:10)
[2020-04-10] MEDS: MELATONIN 3 MG TABLET 6 MG PO (20:10)
[2020-04-10] MEDS: TEMAZEPAM 15 MG CAPSULE 30 MG PO (20:10)
[2020-04-10] MEDS: PARoxetine 20 MG TABLET PO (20:11)
[2020-04-11] VITALS: BP 110/58; PULSE 79; RESP 16; TEMP 36.8; O2SAT 96
[2020-04-11] MEDS: LACTATED RINGERS 1,000 ML 100 ML IV (02:20)
[2020-04-11 03:57] VITALS: BP 118/65; PULSE 65; RESP 16; TEMP 36.1; O2SAT 95
[2020-04-11] MEDS: IBUPROFEN 400 MG TABLET PO ×3 (04:54→13:20)
[2020-04-11] MEDS: CEFAZOLIN 2 GM/100 ML FROZ.PIGGY IV (04:58)
[2020-04-11] MEDS: hydrOXYzine pamoate 25 MG CAPSULE PO (04:59)
[2020-04-11 05:32] LABS: Hematocrit 34.3 % (36-46); Hemoglobin 11.1 g/dL (12.0-16.0)
[2020-04-11] MEDS: LEVOTHYROXINE 50 MCG TABLET PO (06:41)
--- NOTE | 2020-04-11 07:57 | P.DS_ITS ---
History of Present Illness History of Present Illness Date Patient Seen: 04/11/20 Time Patient Seen: 07:57 Chief complaint: Right Total Knee Arthroplasty Narrative: Pain is mild. Denies fever chills. No nausea vomiting. Patient's daughter will be home to assist her. Discharge Providers Provider Discharge Date: 04/11/20 Primary care physician: Richie Lamb MD Consults: 04/10/20 15:07 Consult to Discharge Planning Routine Comment: Consult to Physical Therapy Evaluate & Treat Comment: Physician Instructions: postop TKA protocol Consult to Respiratory Therapy Evaluate & Treat Comment: Physician Instructions: Evaluate and treat Discharge provider: Jules Corbett PA-C Summary Hospital Course Discharge Diagnosis: Right knee osteoarthritis Hospital Course: Procedure: Right total knee arthroplasty Same procedure as scheduled: Yes Indications: The patient presents today for total knee arthroplasty after failure of conservative treatment. The nature of the procedure including the risks and benefits, alternatives, postoperative course and expected outcome were discussed and all questions answered. Consent was obtained. Operative site confirmed and marked. Surgeon: Brian Flynn [employer] Process Technician: Jules Corbett Anesthesia Type: General, Spinal and Local Operative Notes Closure Type: primary Specimen(s): none sent Prosthetic devices, grafts, tissues, transplants, or devices: Matt Persona TKA 10 CR femoral component, F stemmed tibial component, 10 MC polyethylene tray and [35] mm all poly patella. Applied: implant(s) Estimated Blood Loss (mL): 5 Blood products transfused: none Tourniquet time (min): 46 Patient admitted to the hospital for right total knee arthroplasty. Patient consented to the same. Patient taken the operating room underwent right total knee arthroplasty. Patient back in her room recovering well as in stable condition. Patient will be discharged after physical therapy. Patient has her daughter home to assist her. Status at Discharge Cognitive/behavioral status at discharge: at baseline, oriented Functional status at discharge: uses cane/walker Overall status at discharge: patient is progressing back to baseline Exam Vital Signs (past 8 hours): - 04/11/20 00:00 04/11/20 03:57 Temperature 98.3 F 97.0 F L Pulse Rate 79 65 Respiratory Rate 16 16 Blood Pressure 110/58 L 118/65 Pulse Oximetry 96 95 Oxygen Delivery Method Room Air Oxygen Flow Rate 0 Narrative Exam Narrative: Pleasant 79-year-old female resting comfortably in bed in no apparent distress. Right knee dressing is clean, dry and intact. Motor functions intact distally. Sensation grossly intact to light touch. Her calf is soft and nontender. Both legs are warm and dry. Objective Labs Result Diagrams: 04/11/20 05:00 Labs: Laboratory Results - last 24 hr 04/11/20 05:00 Hgb 11.1 L Hct 34.3 L Discharge Assessment & Plan Assessment and Plan Assessment: Patient progressing as expected status post right total knee arthroplasty Plan of Treatment: Discharge home today after physical therapy this morning. Discharge Plan Discharge Plan Patient Disposition: Home Provider Discharge Comment: DC home today after PT Discharge orders & Medications Discharge Orders: Discharge (Order); Ordered 04/11/20 Ordered By: Jules Corbett Prescriptions: New acetaminophen 325 mg Tablet 650 mg PO TID Qty: 60 RF: 0 aspirin 81 mg Tablet,Delayed Release (Dr/Ec) 81 mg PO BID Qty: 60 RF: 0 ibuprofen 400 mg Tablet 400 mg PO Q4H Qty: 60 RF: 0 Continued melatonin 5 mg capsule 5 mg PO BEDTIME RF: 0 multivitamin Capsule 1 cap PO DAILY Qty: 0 RF: 0 omeprazole 20 mg Capsule,Delayed Release(Dr/Ec) 20 mg PO DAILY Qty: 0 RF: 0 temazepam 30 mg Capsule 30 mg PO BEDTIME Qty: 0 RF: 0 levothyroxine 50 mcg Tablet 50 mcg PO DAILY RF: 0 oxybutynin chloride 10 mg Tablet Extended Release 24hr 10 mg PO DAILY RF: 0 paroxetine HCl 40 mg Tablet 20 mg PO BEDTIME RF: 0 ezetimibe 10 mg Tablet 10 mg PO QPM RF: 0 Discontinued meloxicam [Mobic] 15 MG tablet 15 mg PO Q AM Qty: 0 RF: 0 acetaminophen 650 mg Tablet Extended Release 1,300 mg PO BEDTIME RF: 0 Follow up/Referrals: Brian Flynn MD [Physician] - (2 weeks) Diet/Activity/Treatments Diet: Diet as Tolerated Activity: WBAT Cold/Heat Therapy: ice as needed Skin/Wound/Dressing Care Report to your healthcare provider any signs of infection, such as:: chills, fever, increased pain, unusual drainage and unusual redness Dressing: keep clean and dry Visit Report/Discharge Packet Instructions: DI for Knee Replacement Stand Alone Forms: Surgery Discharge Discharge Data Primary Care Provider: Richie Lamb Attending Provider: Brian Flynn Quality VTE Deep Vein Thrombosis/Pulmonary Embolism Present on Admission: No
[2020-04-11] MEDS: ACETAMINOPHEN 325 MG TABLET 650 MG PO ×2 (09:02→13:19)
[2020-04-11] MEDS: DOCUSATE 100 MG CAPSULE PO (09:03)
[2020-04-11] MEDS: PANTOPRAZOLE 20 MG TABLET PO (09:03)
[2020-04-11] MEDS: ASPIRIN EC 81 MG TABLET PO (09:03)
[2020-04-11] MEDS: OXYBUTYNIN 5 MG ER TAB 10 MG PO (09:03)
[2020-04-11 09:41] VITALS: BP 123/59; PULSE 76; RESP 15; TEMP 36.7; O2SAT 93
--- NOTE | 2020-04-11 10:15 | PT.IIE ---
Current Diagnoses Unilateral primary osteoarthritis, right knee (04/10/20) Presence of left artificial knee joint (04/10/20) Surgery Performed Operation Date: 04/10/20 12:15 Actual Procedures p Total Knee Arthroplasty(Right) - Brian Flynn MD Surgical History (Last Updated 11/29/19 @ 10:20 by Marisela Emmanuel RN) History of arthroplasty of left knee (Acute 08/22/12) History of back surgery (Acute 2005) Hx of appendectomy (Acute) Hx of bilateral cataract extraction (Acute) Hx of eye surgery (Acute) Hx of tonsillectomy (Acute) Medical History (Last Updated 04/03/20 @ 13:02 by Marisela Emmanuel RN) Acid reflux (Acute) Depression (Acute) HLD (hyperlipidemia) (Acute) Hypothyroidism (Acute) Osteoarthritis (Acute) Toe infection (Acute 11/2019) Physical Therapy Inpatient Evaluation/Re-Eval M1 PT/OT-IP Prior Functional Status Start: 04/11/20 08:40 Freq: NEEDED Status: Active Protocol: Document 04/11/20 10:15 DE (Rec: 04/11/20 12:13 DE [id number]) Medical Review Prior Functional Status Medical History Reviewed Yes Diet/Fluid Consistency Regular Communication WNL. No deficits noted. Able to make needs known. Mobility and Gait IND for all mobility and amb without any AD or limitations at baseline. Activities of Daily Living and IADL's IND with all ADLs and IADLs at baseline. Social History Household Members children Living Arrangements House Number of Floors (Floors) Two Floors Number of Stairs To Enter/Railing? Pt lives on the downstairs, which has everything she needs . She can enter through garage with 0 NIKKI to get to the downstairs. Home Environment High Toilet,Walk in Shower Home Equipment Front Wheel Walker,Straight Cane,Raised Toilet Seat Without Armrests,Hand Held Shower,Tobacco Sieve Operator,Hospital Bed, Grab Bars Near Toilet,Grab Bars In Shower Employment Status Unknown Additional Social History Comment Pt's daughter took time off work to assist her through the end of this week. Pt lives with her daughter and son-in- law. Pt's daughter is a physical therapist. M2 PT-IP Current Condition Start: 04/11/20 08:40 Freq: NEEDED Status: Active Protocol: Document 04/11/20 10:15 DE (Rec: 04/11/20 12:13 DE [id number]) Physical Therapy Current Condition Current Condition Evaluation Date 04/11/20 Treatment Diagnosis R TKA; Difficyulty with walking Onset Date 04/10/20 Weight Bearing Status Weight Bearing Status Weight Bear as Tolerated M3 PT-IP Subjective Start: 04/11/20 08:40 Freq: NEEDED Status: Active Protocol: Document 04/11/20 10:15 DE (Rec: 04/11/20 12:13 DE [id number]) Subjective Physical Therapy Visit Type Type Initial Evaluation Visit Start Time 09:40 Visit Stop Time 10:05 Total Visit Minutes 25 Notes SPT Brian led the session under direct supervision of PT Teressa throughout the entire session. Number of DIVISION ORDER ANALYST Visits 0 Physical Therapy Visit Comments Patient Comments Pt is agreeable to do PT. Patient Goals To return home. M4 PT-IP Mobility and Gait Start: 04/11/20 08:40 Freq: NEEDED Status: Active Protocol: Document 04/11/20 10:15 DE (Rec: 04/11/20 12:13 DE [id number]) PT-Transfer Assessment Sit to and From Stand Sit to and from Stand Contact Guard Assistance,Use of Upper Extremities Equipment Transfer Assistive Device Gait Belt,Front Wheeled Walker Orthotic/Prosthetic Devices or Brace: No Transfers Transfer Destination Chair Transfer Technique Stand Step Pivot Transfer Ability Level of Assist Contact Guard Assistance,Use of Upper Extremities Comments Mobility Comments Pt was sitting in chair as PT and SPT arrived. BP was 122/58 . Pt performed seated heel slides to work on her R knee ROM. Pt then performed sit to stand with CGA and use of B armrests. Pt denied any dizziness or lightheadedness. Pt then amb ~200 ft total around foot of bed, out in the hallway, and back to the room with CGA and FWW. Pt demonstrated step-through gait pattern with decreased stride length and decreased foot clearance. Pt also lacked knee extension slightly. No labored breathing or loss of balance was observed. Pt returned to the room and sat down on the chair with CGA and use of B armrests. Call light placed within reach. Gait Assessment Gait Gait Assistance Required: Contact Guard Assist Distance (Feet) 200 Able to Maintain Weight Bearing Status Yes During Gait Assistive Devices Assistive Device Gait Belt,Front Wheeled Walker Orthotic/Prosthetic Devices or Brace: No Gait Deviations General Gait Pattern Antalgic,Decreased Stride Length,Decreased Feet Clearance Factors Limiting Gait Function Factors Limiting Gait Function Decreased Activity Tolerance, Decreased Strength,Limited Range of Motion,Pain,Poor Balance Comments Gait Comments See mobility comments. Stair Climbing Assessment Comments Stair Climbing Comments Not assessed. PT-Balance Assessment Sitting Balance and Reactions Static Sitting Balance Ability Normal Dynamic Sitting Balance Ability Normal Standing Balance and Reactions Static Standing Balance Ability Normal Dynamic Standing Balance Ability Good M5 PT-IP Objective Assessments Start: 04/11/20 08:40 Freq: NEEDED Status: Active Protocol: Document 04/11/20 10:15 DE (Rec: 04/11/20 12:13 DE [id number]) Orientation Orientation/Cognition Level of Alertness Alert Orientation Name,Age,Birthday,Month,Date, Year,Day of Week,Place, Situation Language Function Ability No Deficits Noted Safety Awareness Understands Safety Issues Memory Description No Deficits Noted Gross Range of Motion Lower Extremity ROM Assessment Right Impaired Strength Lower Extremity Strength Assessment Right Impaired Coordination Assessment Gross Coordination Gross Coordination WNL Sensation Assessment Sensation Gross Sensation WNL Light Touch Intact Muscle Tone Muscle Tone WNL Yes M6 PT-IP Treatment Start: 04/11/20 08:40 Freq: NEEDED Status: Active Protocol: Document 04/11/20 10:15 DE (Rec: 04/11/20 12:13 DE [id number]) Physical Therapy Treatment Exercises Exercises Ankle Pumps,Gluteal Sets,Quad Sets,Heel Slides Education Education Provided Weight Bearing Status,Post-Op Packet,Safety Other Treatments Other Treatment Performed Pt education was provided on WB status, safety, and role of PT. M7 PT-IP Assessment and Plan Start: 04/11/20 08:40 Freq: NEEDED Status: Active Protocol: Document 04/11/20 10:15 DE (Rec: 04/11/20 12:13 DE [id number]) PT Summary Assessment and Plan Potential Rehabilitation Potential Excellent Status of Condition at Evaluation Stable Summary Impairments Pain,ROM,Strength,Balance,Bed Mobility,Transfers,Gait, Activity Tolerance Progress Towards Goals Safe For Discharge Assessment Summary Nevaeh is a 79 yo female s/p R TKA post-op day 1. At baseline, pt was IND for all mobility, amb, and ADLs without any assistive device or limitations. On evaluation, pt required CGA and FWW all transfers and amb. Pt was able to amb ~200 ft without any labored breathing or loss of balance. Pt does not have to climb any steps at home. Pt is safe to d/c home with family assistance and FWW. Pt will benefic from outpatient PT to improve her knee strength and ROM. Frequency of Treatment Frequency Of Treatment Discharge Recommendations To Nursing Amount of Assist Needed 1 Person Assist Discharge Recommendations PT Discharge Recommendations Home with Assistance, Outpatient PT Transportation Needs at Discharge Private Vehicle Treatment was provided by Brian Carey, SPT and supervised by Teressa Zeng, PT. I personally reviewed this note and agree with its contents.
[2020-04-11 11:06] VITALS: O2SAT 96
--- NOTE | 2020-04-11 11:51 | CM.IDA ---
Initial DCP Assessment Note Pt is an 79 yo female, resident of [place], now POD#1 from Rt knee surgery w/ Dr Flynn PCP: Dr Adonis Gibbs: [facility] Reviewed chart, pt discussed in multidisciplinary rounds this morning. Therapy has cleared pt for return home w/family to assist and pt has planned for home, DC order from Ortho has already been initiated this morning. Met w/patient this morning to introduce PUBLIC SERVICES LIBRARIAN role. Patient sitting up in chair, in good spirits, states she is eager to return home w/her dtr, who has planned to stay w/her for at least one week. DC expected home upon clearance from PT MAYE [place]
--- NOTE | 2020-04-11 12:24 | PT.IIE ---
Current Diagnoses Unilateral primary osteoarthritis, right knee (04/10/20) Presence of left artificial knee joint (04/10/20) Surgery Performed Operation Date: 04/10/20 12:15 Actual Procedures p Total Knee Arthroplasty(Right) - Brian Flynn MD Surgical History (Last Updated 11/29/19 @ 10:20 by Marisela Emmanuel RN) History of arthroplasty of left knee (Acute 08/22/12) History of back surgery (Acute 2005) Hx of appendectomy (Acute) Hx of bilateral cataract extraction (Acute) Hx of eye surgery (Acute) Hx of tonsillectomy (Acute) Medical History (Last Updated 04/03/20 @ 13:02 by Marisela Emmanuel RN) Acid reflux (Acute) Depression (Acute) HLD (hyperlipidemia) (Acute) Hypothyroidism (Acute) Osteoarthritis (Acute) Toe infection (Acute 11/2019) Physical Therapy Inpatient Evaluation/Re-Eval M1 PT/OT-IP Prior Functional Status Start: 04/11/20 08:40 Freq: NEEDED Status: Active Protocol: Document 04/11/20 10:15 DE (Rec: 04/11/20 12:13 DE [id number]) Medical Review Prior Functional Status Medical History Reviewed Yes Diet/Fluid Consistency Regular Communication WNL. No deficits noted. Able to make needs known. Mobility and Gait IND for all mobility and amb without any AD or limitations at baseline. Activities of Daily Living and IADL's IND with all ADLs and IADLs at baseline. Social History Household Members children Living Arrangements House Number of Floors (Floors) Two Floors Number of Stairs To Enter/Railing? Pt lives on the downstairs, which has everything she needs . She can enter through garage with 0 NIKKI to get to the downstairs. Home Environment High Toilet,Walk in Shower Home Equipment Front Wheel Walker,Straight Cane,Raised Toilet Seat Without Armrests,Hand Held Shower,Paint Booth Operator,Hospital Bed, Grab Bars Near Toilet,Grab Bars In Shower Employment Status Unknown Additional Social History Comment Pt's daughter took time off work to assist her through the end of this week. Pt lives with her daughter (who is a PT) and son-in- law. M2 PT-IP Current Condition Start: 04/11/20 08:40 Freq: NEEDED Status: Active Protocol: Document 04/11/20 10:15 DE (Rec: 04/11/20 12:13 DE [id number]) Physical Therapy Current Condition Current Condition Evaluation Date 04/11/20 Treatment Diagnosis R TKA; Difficyulty with walking Onset Date 04/10/20 Weight Bearing Status Weight Bearing Status Weight Bear as Tolerated M3 PT-IP Subjective Start: 04/11/20 08:40 Freq: NEEDED Status: Active Protocol: Document 04/11/20 10:15 DE (Rec: 04/11/20 12:13 DE [id number]) Subjective Physical Therapy Visit Type Type Initial Evaluation Visit Start Time 09:40 Visit Stop Time 10:05 Total Visit Minutes 25 Notes SPT Brian led the session under direct supervision of PT Teressa throughout the entire session. Number of TREE FALLER Visits 0 Physical Therapy Visit Comments Patient Comments Pt is agreeable to do PT. Patient Goals To return home. M4 PT-IP Mobility and Gait Start: 04/11/20 08:40 Freq: NEEDED Status: Active Protocol: Document 04/11/20 10:15 DE (Rec: 04/11/20 12:13 DE [id number]) PT-Transfer Assessment Sit to and From Stand Sit to and from Stand Contact Guard Assistance,Use of Upper Extremities Equipment Transfer Assistive Device Gait Belt,Front Wheeled Walker Orthotic/Prosthetic Devices or Brace: No Transfers Transfer Destination Chair Transfer Technique Stand Step Pivot Transfer Ability Level of Assist Contact Guard Assistance,Use of Upper Extremities Comments Mobility Comments Pt was sitting in chair as PT and SPT arrived. BP was 122/58 . Pt performed seated heel slides to work on her R knee ROM. Pt then performed sit to stand with CGA and use of B armrests. Pt denied any dizziness or lightheadedness. Pt then amb ~200 ft total around foot of bed, out in the hallway, and back to the room with CGA and FWW. Pt demonstrated step-through gait pattern with decreased stride length and decreased foot clearance. Pt also lacked knee extension slightly. No labored breathing or loss of balance was observed. Pt returned to the room and sat down on the chair with CGA and use of B armrests. Call light placed within reach. Gait Assessment Gait Gait Assistance Required: Contact Guard Assist Distance (Feet) 200 Able to Maintain Weight Bearing Status Yes During Gait Assistive Devices Assistive Device Gait Belt,Front Wheeled Walker Orthotic/Prosthetic Devices or Brace: No Gait Deviations General Gait Pattern Antalgic,Decreased Stride Length,Decreased Feet Clearance Factors Limiting Gait Function Factors Limiting Gait Function Decreased Activity Tolerance, Decreased Strength,Limited Range of Motion,Pain,Poor Balance Comments Gait Comments See mobility comments. Stair Climbing Assessment Comments Stair Climbing Comments Not assessed. PT-Balance Assessment Sitting Balance and Reactions Static Sitting Balance Ability Normal Dynamic Sitting Balance Ability Normal Standing Balance and Reactions Static Standing Balance Ability Normal Dynamic Standing Balance Ability Good M5 PT-IP Objective Assessments Start: 04/11/20 08:40 Freq: NEEDED Status: Active Protocol: Document 04/11/20 10:15 DE (Rec: 04/11/20 12:13 DE [id number]) Orientation Orientation/Cognition Level of Alertness Alert Orientation Name,Age,Birthday,Month,Date, Year,Day of Week,Place, Situation Language Function Ability No Deficits Noted Safety Awareness Understands Safety Issues Memory Description No Deficits Noted Gross Range of Motion Lower Extremity ROM Assessment Right Impaired Strength Lower Extremity Strength Assessment Right Impaired Coordination Assessment Gross Coordination Gross Coordination WNL Sensation Assessment Sensation Gross Sensation WNL Light Touch Intact Muscle Tone Muscle Tone WNL Yes M6 PT-IP Treatment Start: 04/11/20 08:40 Freq: NEEDED Status: Active Protocol: Document 04/11/20 10:15 DE (Rec: 04/11/20 12:13 DE [id number]) Physical Therapy Treatment Exercises Exercises Ankle Pumps,Gluteal Sets,Quad Sets,Heel Slides Education Education Provided Weight Bearing Status,Post-Op Packet,Safety Other Treatments Other Treatment Performed Pt education was provided on WB status, safety, and role of PT. M7 PT-IP Assessment and Plan Start: 04/11/20 08:40 Freq: NEEDED Status: Active Protocol: Document 04/11/20 10:15 DE (Rec: 04/11/20 12:13 DE [id number]) PT Summary Assessment and Plan Potential Rehabilitation Potential Excellent Status of Condition at Evaluation Stable Summary Impairments Pain,ROM,Strength,Balance,Bed Mobility,Transfers,Gait, Activity Tolerance Progress Towards Goals Safe For Discharge Assessment Summary Nevaeh is a 79 yo female s/p R TKA post-op day 1. At baseline, pt was IND for all mobility, amb, and ADLs without any assistive device or limitations. On evaluation, pt required CGA and FWW all transfers and amb. Pt was able to amb ~200 ft without any labored breathing or loss of balance. Pt does not have to climb any steps at home. Pt is safe to d/c home with family assistance and FWW. Pt will benefit from outpatient PT to improve her knee strength and ROM. Frequency of Treatment Frequency Of Treatment Discharge Recommendations To Nursing Amount of Assist Needed 1 Person Assist Discharge Recommendations PT Discharge Recommendations Home with Assistance, Outpatient PT Transportation Needs at Discharge Private Vehicle
== END 2020-04-11 14:30 | disposition home or self-care (01) ==
LOC: OR 10:47 → AC 12:53
PROVIDERS: PCP Family Medicine; Referring Provider Orthopaedic Surgery; Visit Provider Orthopaedic Surgery
PROC: 0SRC0JZ Replacement of Right Knee Joint with Synthetic Substitute, Open Approach (ICD-10-PCS; CPT 27447; principal; 2020-04-10 12:15)
DX: M17.11 Unilateral primary osteoarthritis, right knee (principal); Z96.652 Presence of left artificial knee joint; E03.9 Hypothyroidism, unspecified; K21.9 Gastro-esophageal reflux disease without esophagitis
CPT/HCPCS: 27447; 36415; 73560; 85014; 85018; 97161; C1776; C9290; J0690; J1100; J2250; J2405; J2704; J3010

== ENCOUNTER → 2020-05-23 13:54 | Outpatient (CLI) | payer MEDICARE, OTHER, SELFPAY ==
[2020-04-10 17:30] VITALS: BMI 29.1
--- NOTE | 2020-05-23 | DI.MG.S_ITS ---
BILATERAL DIGITAL SCREENING MAMMOGRAM 3D/2D WITH CAD: 05/23/2020 CLINICAL: Routine screening. No prior exams were available for comparison. The tissue of both breasts is heterogeneously dense. This may lower the sensitivity of mammography. Current study was also evaluated with a Computer Aided Detection (CAD) system. There are benign calcifications in both breasts. There also are benign post operative findings in the left breast. There are mole markers on both breasts. No significant masses, calcifications, or other findings are seen in either breast. IMPRESSION: BENIGN There is no mammographic evidence of malignancy. A 1 year screening mammogram is recommended. This exam was interpreted at Station ID: [id number]. NOTE: For mammograms, a report in lay terms will be sent to the patient. Approximately 15% of breast malignancies will not be visualized mammographically. In the management of a palpable breast mass, a negative mammogram must not discourage biopsy of a clinically suspicious lesion. Electronically Signed By: Rolando Paige acr/clarisse:05/23/2020 14:35:02 letter sent: Normal Exam ACR BI-RADS Category 2: Benign Finding(s) [id number]
== END ==
PROVIDERS: PCP Family Medicine; Referring Provider Family Medicine; Visit Provider Family Medicine
DX: Z12.31 Encounter for screening mammogram for malignant neoplasm of breast (principal)
CPT/HCPCS: 77063; 77067

== ENCOUNTER 2020-06-27 11:15 | Outpatient (RCR) | payer MEDICARE, OTHER, SELFPAY ==
--- NOTE | 2020-04-16 15:00 | PT.OPPOC ---
Physical, Occupational & Speech Therapy At [facility] Current Diagnoses Unilateral primary osteoarthritis, right knee (04/16/20) Other abnormalities of gait and mobility (04/16/20) Visit Care Team Role Provider Type Richie Lamb MD Primary Care Provider Physician Specialty: Family Practice Address: [address] [place] [address], [facility] [place], [address] Email: [email or web address] Brian Flynn MD Attending Provider Physician Referring Provider Specialty: Orthopedic Surgery Address: [address] [place] [address], [address] Email: [email or web address] Plan Of Care PT-OP-T Assessment and Plan Start: 04/16/20 10:19 Freq: Status: Active Protocol: Document 04/16/20 12:45 AMB (Rec: 04/16/20 16:00 AMB [id number]) Physical Therapy Assessment Rehab Potential Rehabilitation Potential Good Evaluation Complexity Number of Personal Factors/Comorbidities 1-2 Number of Body Systems Impaired 4 or More Clinical Presentation at Evaluation Stable Impairments Impairments Balance,Edema,Functional Activities,Functional Mobility ,Gait,Integument,Pain,ROM, Strength Goals Five Impairment Gait Short Term Goal (STG) Nevaeh will ambulate with a SPC/ walking stick for 6 minutes without antalgic gait. STG Duration 4 weeks Four Impairment ADLs Short Term Goal (STG) Nevaeh will ascend and descend a flight of stairs with one railing without an increase in baseline pain. STG Duration 4 weeks High Climber Goal (LTG) Pt will be able to return to gardening without difficulty LTG Duration 8 weeks Three Impairment ROM Short Term Goal (STG) Pt will have 0-120 deg AROM. STG Duration 4 weeks Two Impairment Strength Short Term Goal (STG) Nevaeh will be independent and consistent with her HEP. STG Duration 4 weeks Alf Goal (LTG) Nevaeh will improve her LE strength so that she can stand from a standard height chair with little to no UE support. LTG Duration 8 weeks One Impairment Swelling Short Term Goal (STG) Nevaeh will decrease her swelling so that she does not have any pitting edema. STG Duration 4 weeks Assessment Summary Assessment Nevaeh attends PT 6 days s/p R TKA. She was able to show this PT her HEP, and is doing well with her strength for this point in her rehab. She does have significant swelling at this time. Called MD's office and nurse gave verbal ok for compression stockings, especially starting on post op day 7 because then the pump will shut off. Nevaeh has goals of returning to gardening (she would want to be able to kneel) and walk over uneven terrain. Overall she is doing quite well, but we will need to get her swelling under control so that she is able to get the most out of her range of motion early in the rehab process. She will benefit from PT to advance her gait, ROM, and improve her swelling and pain control. Physical Therapy Plan Frequency and Duration Frequency of Treatment 2x/Week Duration of Treatment 10 weeks Plan of Care Start Date 04/16/20 Plan of Care End Date 06/25/20 Therapeutic Interventions Therapeutic Interventions Gait Training,Home Exercise Program,Manual Therapy, Neuromuscular Re-education, Self-Care/Home Management, Therapeutic Activities, Therapeutic Exercises Modalities Cold Pack/Ice Massage,Electric Stimulation Next Visit Focus/Plan Next Note Type Treatment Note Next Visit Plan Bicycle, icing, review HEP Plan of Care Dates Plan of Care Start Date 04/16/20 Plan of Care End Date 06/25/20 Electronically Signed by: Irma Reina, PT 04/17/20 0809 Please Sign and Return: I have reviewed this Plan of Care and certify that the skilled therapy services above are required to meet the patient?s needs. Physician Signature Date Printed Name and Credentials Clinical Instructor Signature Printed Name and Credentials
--- NOTE | 2020-04-16 15:00 | PT.OIE ---
Current Diagnoses Unilateral primary osteoarthritis, right knee (04/16/20) Other abnormalities of gait and mobility (04/16/20) Past Medical History (Last Updated 04/03/20 @ 13:02 by Marisela Emmanuel RN) Acid reflux Depression HLD (hyperlipidemia) Hypothyroidism Osteoarthritis Toe infection (11/2019) Past Surgical History (Last Updated 11/29/19 @ 10:20 by Marisela Emmanuel RN) History of arthroplasty of left knee (08/22/12) History of back surgery (2005) Hx of appendectomy Hx of bilateral cataract extraction Hx of eye surgery Hx of tonsillectomy Visit Care Team Role Provider Type Richie Lamb MD Primary Care Provider Physician Specialty: Family Practice Address: [address] [place] [address], [facility] [place], [address] Email: [email or web address] Brian Flynn MD Attending Provider Physician Referring Provider Specialty: Orthopedic Surgery Address: [address] [place] [address], [address] Email: [email or web address] [facility] Initial Evaluation PT-OP-A Visit Information Start: 04/16/20 10:19 Freq: Status: Active Protocol: Document 04/16/20 12:45 AMB (Rec: 04/16/20 15:35 AMB [email or web address]) Out-Patient Physical Therapy Visit Information Visit Information Visit Type Initial Evaluation Visit Start Time 12:45 Visit Stop Time 13:30 Total Visit Minutes 45 Visit Number 1 PT-OP-B Current Condition Start: 04/16/20 10:19 Freq: Status: Active Protocol: Document 04/16/20 12:44 AMB (Rec: 04/16/20 13:22 AMB [id number]) Current Condition History of Current Condition Onset Date 04/10/20 Current Complaints R TKA History of Current Condition 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 She is using a FWW currently. She lives with her daughter and son in law and does not need to do any stairs to get into her part of the house, although there are stairs to get into their house. She has a walk in shower and was able to shower yesterday with her daughter's supervision. She reports she is taking ibuprofen and tylenol for pain relief with one opiate medication at bed time. She had previously had a L TKA which she felt rehabed well. Treatment Goals Patient/Caregiver Goals Walking, previously without assistive device, gardening ( getting into kneeling and getting back up), walking on uneven surfaces. Prior Functional Status Baseline Function- ADL's Modified Independent Baseline Function- Mobility Modified Independent Baseline Function- Gait Community ambulator without AD , reports some difficulty with uneven terrain Current Functional Impairments (Reported) Functional Limitations- ADL's Using FWW for ambulation, needs UE for sit to stand Personal Factors Other Personal Factors That May Effect self reported memory deficits, Therapy/Recovery hx of lumbar surgery PT-OP-C Subjective Start: 04/16/20 10:19 Freq: Status: Active Protocol: Document 04/16/20 12:45 AMB (Rec: 04/16/20 15:35 AMB [email or web address]) Patient Questionnaires Lower Extremity Functional Scale LEFS Score 40 LEFS Impairment 40 to 59% Impaired (Score 32- 47) OP-PT Pain Assessment Location R knee Intensity 6 Scale Used Numeric (0 - 10) PT-OP-E Functional Tests Start: 04/16/20 15:35 Freq: Status: Active Protocol: Document 04/16/20 12:45 AMB (Rec: 04/16/20 15:36 AMB [email or web address]) Functional Tests Timed Up and Go (TUG) Score 23 Comments FWW management limited the most PT-OP-G Mobility & Gait Start: 04/16/20 10:19 Freq: Status: Active Protocol: Document 04/16/20 12:45 AMB (Rec: 04/16/20 15:35 AMB [email or web address]) OP Mobility Evaluation Transfers Sit to Stand requires UE support when moving from standard height chair OP Gait Assessment Comments Gait Comments Ambulating with FWW good step length, fairly slow with backing up with walker and with turns. PT-OP-J Posture/Palpation/Skin Start: 04/16/20 10:19 Freq: Status: Active Protocol: Document 04/16/20 12:45 AMB (Rec: 04/16/20 15:35 AMB [email or web address]) Skin Assessment Edema Assessment Right Leg Edema Type Pitting Edema Degree 3+ Comments 3+ at ankle, no pitting at knee, but swelling is present throughout, mild bruising at knee Circumference Measurement 2 Location L mid patella Measurement (Centimeters) 51 1 Location R mid patella Measurement (Centimeters) 44 Incisional Assessment Incision Appearance/Comments incision is covered, no redness noted in knee that is visible PT-OP-K Range of Motion Start: 04/16/20 10:19 Freq: Status: Active Protocol: Document 04/16/20 12:45 AMB (Rec: 04/16/20 15:35 AMB [email or web address]) Knee Goniometric Range of Motion Knee Right Patient Position Supine Flexion Active (degrees) 103 Flexion Passive (degrees) 110 Extension Active (degrees) 9 Extension Passive (degrees) 7 Left Patient Position Supine Flexion Active (degrees) 128 Flexion Passive (degrees) 131 Extension Active (degrees) 0 PT-OP-M Strength Start: 04/16/20 10:19 Freq: Status: Active Protocol: Document 04/16/20 12:45 AMB (Rec: 04/16/20 15:35 AMB [email or web address]) Knee Strength Knee Manual Muscle Testing Right Flexion (S2) 4 Good Extension (L3) 4- Good- Left Flexion (S2) 4+ Good+ Extension (L3) 4+ Good+ PT-OP-Q Treatments Start: 04/16/20 10:19 Freq: Status: Active Protocol: Document 04/16/20 12:45 AMB (Rec: 04/16/20 16:00 AMB [email or web address]) Manual Therapy Treatment Other Other Manual Treatments edema massage PT-OP-T Assessment and Plan Start: 04/16/20 10:19 Freq: Status: Active Protocol: Document 04/16/20 12:45 AMB (Rec: 04/16/20 16:00 AMB [email or web address]) Physical Therapy Assessment Rehab Potential Rehabilitation Potential Good Evaluation Complexity Number of Personal Factors/Comorbidities 1-2 Number of Body Systems Impaired 4 or More Clinical Presentation at Evaluation Stable Impairments Impairments Balance,Edema,Functional Activities,Functional Mobility ,Gait,Integument,Pain,ROM, Strength Goals Five Impairment Gait Short Term Goal (STG) Nevaeh will ambulate with a SPC/ walking stick for 6 minutes without antalgic gait. STG Duration 4 weeks Four Impairment ADLs Short Term Goal (STG) Nevaeh will ascend and descend a flight of stairs with one railing without an increase in baseline pain. STG Duration 4 weeks Vegetable Buncher Goal (LTG) Pt will be able to return to gardening without difficulty LTG Duration 8 weeks Three Impairment ROM Short Term Goal (STG) Pt will have 0-120 deg AROM. STG Duration 4 weeks Two Impairment Strength Short Term Goal (STG) Nevaeh will be independent and consistent with her HEP. STG Duration 4 weeks Vegetable Buncher Goal (LTG) Nevaeh will improve her LE strength so that she can stand from a standard height chair with little to no UE support. LTG Duration 8 weeks One Impairment Swelling Short Term Goal (STG) Nevaeh will decrease her swelling so that she does not have any pitting edema. STG Duration 4 weeks Assessment Summary Assessment Nevaeh attends PT 6 days s/p R TKA. She was able to show this PT her HEP, and is doing well with her strength for this point in her rehab. She does have significant swelling at this time. Called MD's office and nurse gave verbal ok for compression stockings, especially starting on post op day 7 because then the pump will shut off. Nevaeh has goals of returning to gardening (she would want to be able to kneel) and walk over uneven terrain. Overall she is doing quite well, but we will need to get her swelling under control so that she is able to get the most out of her range of motion early in the rehab process. She will benefit from PT to advance her gait, ROM, and improve her swelling and pain control. Physical Therapy Plan Frequency and Duration Frequency of Treatment 2x/Week Duration of Treatment 10 weeks Plan of Care Start Date 04/16/20 Plan of Care End Date 06/25/20 Therapeutic Interventions Therapeutic Interventions Gait Training,Home Exercise Program,Manual Therapy, Neuromuscular Re-education, Self-Care/Home Management, Therapeutic Activities, Therapeutic Exercises Modalities Cold Pack/Ice Massage,Electric Stimulation Next Visit Focus/Plan Next Note Type Treatment Note Next Visit Plan Bicycle, icing, review HEP
--- NOTE | 2020-04-19 15:31 | PT.OTN ---
Current Diagnoses Unilateral primary osteoarthritis, right knee (04/19/20) Other abnormalities of gait and mobility (04/19/20) Physical Therapy Treatment Note PT-OP-A Visit Information Start: 04/16/20 10:19 Freq: Status: Active Protocol: Document 04/19/20 07:30 AMB (Rec: 04/19/20 08:21 AMB [id number]) Out-Patient Physical Therapy Visit Information Visit Information Visit Type Treatment Note Visit Start Time 07:30 Visit Stop Time 08:15 Total Visit Minutes 45 Visit Number 2 PT-OP-B Current Condition Start: 04/16/20 10:19 Freq: Status: Active Protocol: Document 04/16/20 12:44 AMB (Rec: 04/16/20 13:22 AMB [id number]) Current Condition History of Current Condition Onset Date 04/10/20 Current Complaints R TKA History of Current Condition 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 She is using a FWW currently. She lives with her daughter and son in law and does not need to do any stairs to get into her part of the house, although there are stairs to get into their house. She has a walk in shower and was able to shower yesterday with her daughter's supervision. She reports she is taking ibuprofen and tylenol for pain relief with one opiate medication at bed time. She had previously had a L TKA which she felt rehabed well. Treatment Goals Patient/Caregiver Goals Walking, previously without assistive device, gardening ( getting into kneeling and getting back up), walking on uneven surfaces. Prior Functional Status Baseline Function- ADL's Modified Independent Baseline Function- Mobility Modified Independent Baseline Function- Gait Community ambulator without AD , reports some difficulty with uneven terrain Current Functional Impairments (Reported) Functional Limitations- ADL's Using FWW for ambulation, needs UE for sit to stand Personal Factors Other Personal Factors That May Effect self reported memory deficits, Therapy/Recovery hx of lumbar surgery PT-OP-C Subjective Start: 04/16/20 10:19 Freq: Status: Active Protocol: Document 04/19/20 07:30 AMB (Rec: 04/19/20 11:55 AMB [email or web address]) OP-PT Subjective Patient Comments Patient Comments Nevaeh has noticed discomfort if she twists on her knee, but otherwise states she is doing well. She is still having issues with swelling. PT-OP-E Functional Tests Start: 04/16/20 15:35 Freq: Status: Active Protocol: Document 04/16/20 12:45 AMB (Rec: 04/16/20 15:36 AMB [email or web address]) Functional Tests Timed Up and Go (TUG) Score 23 Comments FWW management limited the most PT-OP-G Mobility & Gait Start: 04/16/20 10:19 Freq: Status: Active Protocol: Document 04/16/20 12:45 AMB (Rec: 04/16/20 15:35 AMB [email or web address]) OP Mobility Evaluation Transfers Sit to Stand requires UE support when moving from standard height chair OP Gait Assessment Comments Gait Comments Ambulating with FWW good step length, fairly slow with backing up with walker and with turns. PT-OP-J Posture/Palpation/Skin Start: 04/16/20 10:19 Freq: Status: Active Protocol: Document 04/16/20 12:45 AMB (Rec: 04/16/20 15:35 AMB [email or web address]) Skin Assessment Edema Assessment Right Leg Edema Type Pitting Edema Degree 3+ Comments 3+ at ankle, no pitting at knee, but swelling is present throughout, mild bruising at knee Circumference Measurement 2 Location L mid patella Measurement (Centimeters) 51 1 Location R mid patella Measurement (Centimeters) 44 Incisional Assessment Incision Appearance/Comments incision is covered, no redness noted in knee that is visible PT-OP-K Range of Motion Start: 04/16/20 10:19 Freq: Status: Active Protocol: Document 04/16/20 12:45 AMB (Rec: 04/16/20 15:35 AMB [email or web address]) Knee Goniometric Range of Motion Knee Right Patient Position Supine Flexion Active (degrees) 103 Flexion Passive (degrees) 110 Extension Active (degrees) 9 Extension Passive (degrees) 7 Left Patient Position Supine Flexion Active (degrees) 128 Flexion Passive (degrees) 131 Extension Active (degrees) 0 PT-OP-M Strength Start: 04/16/20 10:19 Freq: Status: Active Protocol: Document 04/16/20 12:45 AMB (Rec: 04/16/20 15:35 AMB [email or web address]) Knee Strength Knee Manual Muscle Testing Right Flexion (S2) 4 Good Extension (L3) 4- Good- Left Flexion (S2) 4+ Good+ Extension (L3) 4+ Good+ PT-OP-Q Treatments Start: 04/16/20 10:19 Freq: Status: Active Protocol: Document 04/19/20 07:30 AMB (Rec: 04/19/20 08:21 AMB [id number]) Cardio Equipment Recumbent Bicycle Duration (Minutes) 5 Resistance 3 Seat Position 11 Gym Equipment Shuttle Recovery Unilateral Squats Details focus on extension Resistance 12# Shuttle Recovery Platform Stable Reps/Time 2x10 Bilateral Squats Details 25# Shuttle Recovery Platform Stable Reps/Time 2x10 Therapeutic Exercises Supine Exercises SAQ Side right Reps/Minutes 5 sec x5 Standing Exercises 1 Standing Exercise Name sit to stand Comments from high mat table, allowed light UE support Manual Therapy Treatment Other Other Manual Treatments edema massage through calf and popliteal fossa PT-OP-T Assessment and Plan Start: 04/16/20 10:19 Freq: Status: Active Protocol: Document 04/19/20 07:30 AMB (Rec: 04/19/20 11:55 AMB [email or web address]) Physical Therapy Assessment Goals Five Impairment Gait Short Term Goal (STG) Nevaeh will ambulate with a SPC/ walking stick for 6 minutes without antalgic gait. STG Duration 4 weeks Four Impairment ADLs Short Term Goal (STG) Nevaeh will ascend and descend a flight of stairs with one railing without an increase in baseline pain. STG Duration 4 weeks Drain Cleaner Plumber Goal (LTG) Pt will be able to return to gardening without difficulty LTG Duration 8 weeks Three Impairment ROM Short Term Goal (STG) Pt will have 0-120 deg AROM. STG Duration 4 weeks Two Impairment Strength Short Term Goal (STG) Nevaeh will be independent and consistent with her HEP. STG Duration 4 weeks Drain Cleaner Plumber Goal (LTG) Nevaeh will improve her LE strength so that she can stand from a standard height chair with little to no UE support. LTG Duration 8 weeks One Impairment Swelling Short Term Goal (STG) Nevaeh will decrease her swelling so that she does not have any pitting edema. STG Duration 4 weeks Assessment Summary Assessment Nevaeh tolerated exercises well. Continues to have pitting edema in her ankle. Educated on importance of working into extension with her exercises. Physical Therapy Plan Frequency and Duration Frequency of Treatment 2x/Week Duration of Treatment 10 weeks Plan of Care Start Date 04/16/20 Plan of Care End Date 06/25/20 Therapeutic Interventions Therapeutic Interventions Gait Training,Home Exercise Program,Manual Therapy, Neuromuscular Re-education, Self-Care/Home Management, Therapeutic Activities, Therapeutic Exercises Modalities Cold Pack/Ice Massage,Electric Stimulation Next Visit Focus/Plan Next Note Type Treatment Note Next Visit Plan Progress HEP, consider SPC training
--- NOTE | 2020-04-22 09:01 | PT.OTN ---
Current Diagnoses Unilateral primary osteoarthritis, right knee (04/22/20) Other abnormalities of gait and mobility (04/22/20) Physical Therapy Treatment Note PT-OP-A Visit Information Start: 04/16/20 10:19 Freq: Status: Active Protocol: Document 04/22/20 08:16 MB (Rec: 04/22/20 08:58 MB [id number]) Out-Patient Physical Therapy Visit Information Visit Information Visit Type Treatment Note Visit Start Time 08:16 Visit Stop Time 09:00 Total Visit Minutes 44 Visit Number 3 PT-OP-B Current Condition Start: 04/16/20 10:19 Freq: Status: Active Protocol: Document 04/16/20 12:44 AMB (Rec: 04/16/20 13:22 AMB [id number]) Current Condition History of Current Condition Onset Date 04/10/20 Current Complaints R TKA History of Current Condition 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 She is using a FWW currently. She lives with her daughter and son in law and does not need to do any stairs to get into her part of the house, although there are stairs to get into their house. She has a walk in shower and was able to shower yesterday with her daughter's supervision. She reports she is taking ibuprofen and tylenol for pain relief with one opiate medication at bed time. She had previously had a L TKA which she felt rehabed well. Treatment Goals Patient/Caregiver Goals Walking, previously without assistive device, gardening ( getting into kneeling and getting back up), walking on uneven surfaces. Prior Functional Status Baseline Function- ADL's Modified Independent Baseline Function- Mobility Modified Independent Baseline Function- Gait Community ambulator without AD , reports some difficulty with uneven terrain Current Functional Impairments (Reported) Functional Limitations- ADL's Using FWW for ambulation, needs UE for sit to stand Personal Factors Other Personal Factors That May Effect self reported memory deficits, Therapy/Recovery hx of lumbar surgery PT-OP-C Subjective Start: 04/16/20 10:19 Freq: Status: Active Protocol: Document 04/22/20 08:16 MB (Rec: 04/22/20 08:58 MB [id number]) OP-PT Subjective Patient Comments Patient Comments I'm doing better. Pt arrives with cane and carries in her right hand and states that it is not easy to do in her left hand. She is going without AD at home. She got thigh high compression hose on this morning. PT-OP-E Functional Tests Start: 04/16/20 15:35 Freq: Status: Active Protocol: Document 04/16/20 12:45 AMB (Rec: 04/16/20 15:36 AMB [email or web address]) Functional Tests Timed Up and Go (TUG) Score 23 Comments FWW management limited the most PT-OP-G Mobility & Gait Start: 04/16/20 10:19 Freq: Status: Active Protocol: Document 04/16/20 12:45 AMB (Rec: 04/16/20 15:35 AMB [email or web address]) OP Mobility Evaluation Transfers Sit to Stand requires UE support when moving from standard height chair OP Gait Assessment Comments Gait Comments Ambulating with FWW good step length, fairly slow with backing up with walker and with turns. PT-OP-J Posture/Palpation/Skin Start: 04/16/20 10:19 Freq: Status: Active Protocol: Document 04/16/20 12:45 AMB (Rec: 04/16/20 15:35 AMB [email or web address]) Skin Assessment Edema Assessment Right Leg Edema Type Pitting Edema Degree 3+ Comments 3+ at ankle, no pitting at knee, but swelling is present throughout, mild bruising at knee Circumference Measurement 2 Location L mid patella Measurement (Centimeters) 51 1 Location R mid patella Measurement (Centimeters) 44 Incisional Assessment Incision Appearance/Comments incision is covered, no redness noted in knee that is visible PT-OP-K Range of Motion Start: 04/16/20 10:19 Freq: Status: Active Protocol: Document 04/16/20 12:45 AMB (Rec: 04/16/20 15:35 AMB [email or web address]) Knee Goniometric Range of Motion Knee Right Patient Position Supine Flexion Active (degrees) 103 Flexion Passive (degrees) 110 Extension Active (degrees) 9 Extension Passive (degrees) 7 Left Patient Position Supine Flexion Active (degrees) 128 Flexion Passive (degrees) 131 Extension Active (degrees) 0 PT-OP-M Strength Start: 04/16/20 10:19 Freq: Status: Active Protocol: Document 04/16/20 12:45 AMB (Rec: 04/16/20 15:35 AMB [email or web address]) Knee Strength Knee Manual Muscle Testing Right Flexion (S2) 4 Good Extension (L3) 4- Good- Left Flexion (S2) 4+ Good+ Extension (L3) 4+ Good+ PT-OP-Q Treatments Start: 04/16/20 10:19 Freq: Status: Active Protocol: Document 04/22/20 08:16 MB (Rec: 04/22/20 08:58 MB [id number]) Cardio Equipment Recumbent Bicycle Duration (Minutes) 10 Resistance 7 Gym Equipment Shuttle Recovery Bilateral Heel Raises Details 50# Reps/Time 20 reps, ball between knees Bilateral Squats Details 37#, 50# Reps/Time 15 reps, ball between knees, cues for 1,2,3,4 extend and 5, 6,7,8 on flex Therapeutic Exercises Supine Exercises Pelvic tilting Reps/Minutes 10 reps, right knee does not stay up Comments Initiated today for pt to be able to feel core recruitment SLR Side right Comments 6 reps, foot flexed, QS before , count 1,2,3,[address] up, 5,6,7,8 way do heel slide Side right Comments 10 reps slowly quad Supine Exercise Name QS with toes to ceiling to make the leg straight Side right Comments 10 reps, hold 5 sec ankle ROM Side bilateral Comments Pt performs throughout treatment PT-OP-T Assessment and Plan Start: 04/16/20 10:19 Freq: Status: Active Protocol: Document 04/22/20 08:16 MB (Rec: 04/22/20 08:58 MB [id number]) Physical Therapy Assessment Rehab Potential Rehabilitation Potential Good Evaluation Complexity Number of Personal Factors/Comorbidities 1-2 Number of Body Systems Impaired 4 or More Clinical Presentation at Evaluation Stable Impairments Impairments Balance,Edema,Functional Activities,Functional Mobility ,Gait,Integument,Pain,ROM, Strength Goals Five Impairment Gait Short Term Goal (STG) Nevaeh will ambulate with a SPC/ walking stick for 6 minutes without antalgic gait. STG Duration 4 weeks Four Impairment ADLs Short Term Goal (STG) Nevaeh will ascend and descend a flight of stairs with one railing without an increase in baseline pain. STG Duration 4 weeks Nursing Home Goal (LTG) Pt will be able to return to gardening without difficulty LTG Duration 8 weeks Three Impairment ROM Short Term Goal (STG) Pt will have 0-120 deg AROM. STG Duration 4 weeks Two Impairment Strength Short Term Goal (STG) Nevaeh will be independent and consistent with her HEP. STG Duration 4 weeks Refrigeration Unit Repairer Goal (LTG) Nevaeh will improve her LE strength so that she can stand from a standard height chair with little to no UE support. LTG Duration 8 weeks One Impairment Swelling Short Term Goal (STG) Nevaeh will decrease her swelling so that she does not have any pitting edema. STG Duration 4 weeks Assessment Summary Assessment Pt gait trains well without AD and so did not work on this today. Progressed exercises and may consider manual work next treatment as appropriate (her daughter has been working on her leg at home). Also, progress balance exercises. Pt has trouble with abdominal drawing in with pelvic tilt today and so did not give for HEP or give Derek stretch. Physical Therapy Plan Frequency and Duration Frequency of Treatment 2x/Week Duration of Treatment 10 weeks Plan of Care Start Date 04/16/20 Plan of Care End Date 06/25/20 Therapeutic Interventions Therapeutic Interventions Gait Training,Home Exercise Program,Manual Therapy, Neuromuscular Re-education, Self-Care/Home Management, Therapeutic Activities, Therapeutic Exercises Modalities Cold Pack/Ice Massage,Electric Stimulation Next Visit Focus/Plan Next Note Type Treatment Note Next Visit Plan Consider using upright vs recumbent bike next PT treatment, progress other range and strengthening exercises, balance exercises. Progress abdominal drawing in
--- NOTE | 2020-04-24 09:03 | PT.OTN ---
Current Diagnoses Unilateral primary osteoarthritis, right knee (04/24/20) Other abnormalities of gait and mobility (04/24/20) Physical Therapy Treatment Note PT-OP-A Visit Information Start: 04/16/20 10:19 Freq: Status: Active Protocol: Document 04/24/20 08:15 MB (Rec: 04/24/20 08:25 MB [id number]) Out-Patient Physical Therapy Visit Information Visit Information Visit Type Treatment Note Visit Start Time 08:15 Visit Stop Time 08:58 Total Visit Minutes 43 Visit Number 4 PT-OP-B Current Condition Start: 04/16/20 10:19 Freq: Status: Active Protocol: Document 04/16/20 12:44 AMB (Rec: 04/16/20 13:22 AMB [id number]) Current Condition History of Current Condition Onset Date 04/10/20 Current Complaints R TKA History of Current Condition 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 She is using a FWW currently. She lives with her daughter and son in law and does not need to do any stairs to get into her part of the house, although there are stairs to get into their house. She has a walk in shower and was able to shower yesterday with her daughter's supervision. She reports she is taking ibuprofen and tylenol for pain relief with one opiate medication at bed time. She had previously had a L TKA which she felt rehabed well. Treatment Goals Patient/Caregiver Goals Walking, previously without assistive device, gardening ( getting into kneeling and getting back up), walking on uneven surfaces. Prior Functional Status Baseline Function- ADL's Modified Independent Baseline Function- Mobility Modified Independent Baseline Function- Gait Community ambulator without AD , reports some difficulty with uneven terrain Current Functional Impairments (Reported) Functional Limitations- ADL's Using FWW for ambulation, needs UE for sit to stand Personal Factors Other Personal Factors That May Effect self reported memory deficits, Therapy/Recovery hx of lumbar surgery PT-OP-C Subjective Start: 04/16/20 10:19 Freq: Status: Active Protocol: Document 04/24/20 08:15 MB (Rec: 04/24/20 08:25 MB [id number]) OP-PT Subjective Patient Comments Patient Comments I could have fallen asleep in the chair! Pt states she is doing pretty good PT-OP-E Functional Tests Start: 04/16/20 15:35 Freq: Status: Active Protocol: Document 04/16/20 12:45 AMB (Rec: 04/16/20 15:36 AMB [email or web address]) Functional Tests Timed Up and Go (TUG) Score 23 Comments FWW management limited the most PT-OP-G Mobility & Gait Start: 04/16/20 10:19 Freq: Status: Active Protocol: Document 04/16/20 12:45 AMB (Rec: 04/16/20 15:35 AMB [email or web address]) OP Mobility Evaluation Transfers Sit to Stand requires UE support when moving from standard height chair OP Gait Assessment Comments Gait Comments Ambulating with FWW good step length, fairly slow with backing up with walker and with turns. PT-OP-J Posture/Palpation/Skin Start: 04/16/20 10:19 Freq: Status: Active Protocol: Document 04/16/20 12:45 AMB (Rec: 04/16/20 15:35 AMB [email or web address]) Skin Assessment Edema Assessment Right Leg Edema Type Pitting Edema Degree 3+ Comments 3+ at ankle, no pitting at knee, but swelling is present throughout, mild bruising at knee Circumference Measurement 2 Location L mid patella Measurement (Centimeters) 51 1 Location R mid patella Measurement (Centimeters) 44 Incisional Assessment Incision Appearance/Comments incision is covered, no redness noted in knee that is visible PT-OP-K Range of Motion Start: 04/16/20 10:19 Freq: Status: Active Protocol: Document 04/16/20 12:45 AMB (Rec: 04/16/20 15:35 AMB [email or web address]) Knee Goniometric Range of Motion Knee Right Patient Position Supine Flexion Active (degrees) 103 Flexion Passive (degrees) 110 Extension Active (degrees) 9 Extension Passive (degrees) 7 Left Patient Position Supine Flexion Active (degrees) 128 Flexion Passive (degrees) 131 Extension Active (degrees) 0 PT-OP-M Strength Start: 04/16/20 10:19 Freq: Status: Active Protocol: Document 04/16/20 12:45 AMB (Rec: 04/16/20 15:35 AMB [email or web address]) Knee Strength Knee Manual Muscle Testing Right Flexion (S2) 4 Good Extension (L3) 4- Good- Left Flexion (S2) 4+ Good+ Extension (L3) 4+ Good+ PT-OP-Q Treatments Start: 04/16/20 10:19 Freq: Status: Active Protocol: Document 04/24/20 08:15 MB (Rec: 04/24/20 08:25 MB [id number]) Cardio Equipment Recumbent Stepper (Sci-Fit) Duration (Minutes) 10 Resistance 8 Seat Position 8 Manual Therapy Treatment Other Other Manual Treatments Right LE: lavage with therapy cream ankle up through distal LE and knee, gentle patellar mobs, STM right vastus lateralis, MWM distal PFs with pt performing active DF/PF and PT providing TrP pressure PT-OP-T Assessment and Plan Start: 04/16/20 10:19 Freq: Status: Active Protocol: Document 04/24/20 08:15 MB (Rec: 04/24/20 08:25 MB [id number]) Physical Therapy Assessment Rehab Potential Rehabilitation Potential Good Evaluation Complexity Number of Personal Factors/Comorbidities 1-2 Number of Body Systems Impaired 4 or More Clinical Presentation at Evaluation Stable Impairments Impairments Balance,Edema,Functional Activities,Functional Mobility ,Gait,Integument,Pain,ROM, Strength Goals Five Impairment Gait Short Term Goal (STG) Nevaeh will ambulate with a SPC/ walking stick for 6 minutes without antalgic gait. STG Duration 4 weeks Four Impairment ADLs Short Term Goal (STG) Nevaeh will ascend and descend a flight of stairs with one railing without an increase in baseline pain. STG Duration 4 weeks [facility] Goal (LTG) Pt will be able to return to gardening without difficulty LTG Duration 8 weeks Three Impairment ROM Short Term Goal (STG) Pt will have 0-120 deg AROM. STG Duration 4 weeks Two Impairment Strength Short Term Goal (STG) Nevaeh will be independent and consistent with her HEP. STG Duration 4 weeks Mcc Goal (LTG) Nevaeh will improve her LE strength so that she can stand from a standard height chair with little to no UE support. LTG Duration 8 weeks One Impairment Swelling Short Term Goal (STG) Nevaeh will decrease her swelling so that she does not have any pitting edema. STG Duration 4 weeks Assessment Summary Assessment Pt progresses to upright bike today. Manual STM right LE today to assist with edema and pt responds well. Progress with core engagement, Derek moreira. Physical Therapy Plan Frequency and Duration Frequency of Treatment 2x/Week Duration of Treatment 10 weeks Plan of Care Start Date 04/16/20 Plan of Care End Date 06/25/20 Therapeutic Interventions Therapeutic Interventions Gait Training,Home Exercise Program,Manual Therapy, Neuromuscular Re-education, Self-Care/Home Management, Therapeutic Activities, Therapeutic Exercises Modalities Cold Pack/Ice Massage,Electric Stimulation Next Visit Focus/Plan Next Note Type Treatment Note Next Visit Plan Progress other range and strengthening exercises, balance exercises. Progress abdominal drawing in
--- NOTE | 2020-04-29 11:23 | PT.OTN ---
Current Diagnoses Unilateral primary osteoarthritis, right knee (04/29/20) Other abnormalities of gait and mobility (04/29/20) Physical Therapy Treatment Note PT-OP-A Visit Information Start: 04/16/20 10:19 Freq: Status: Active Protocol: Document 04/29/20 10:30 MB (Rec: 04/29/20 11:22 MB [id number]) Out-Patient Physical Therapy Visit Information Visit Information Visit Type Treatment Note Visit Start Time 10:30 Visit Stop Time 11:15 Total Visit Minutes 45 Visit Number 5 PT-OP-B Current Condition Start: 04/16/20 10:19 Freq: Status: Active Protocol: Document 04/16/20 12:44 AMB (Rec: 04/16/20 13:22 AMB [id number]) Current Condition History of Current Condition Onset Date 04/10/20 Current Complaints R TKA History of Current Condition 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 She is using a FWW currently. She lives with her daughter and son in law and does not need to do any stairs to get into her part of the house, although there are stairs to get into their house. She has a walk in shower and was able to shower yesterday with her daughter's supervision. She reports she is taking ibuprofen and tylenol for pain relief with one opiate medication at bed time. She had previously had a L TKA which she felt rehabed well. Treatment Goals Patient/Caregiver Goals Walking, previously without assistive device, gardening ( getting into kneeling and getting back up), walking on uneven surfaces. Prior Functional Status Baseline Function- ADL's Modified Independent Baseline Function- Mobility Modified Independent Baseline Function- Gait Community ambulator without AD , reports some difficulty with uneven terrain Current Functional Impairments (Reported) Functional Limitations- ADL's Using FWW for ambulation, needs UE for sit to stand Personal Factors Other Personal Factors That May Effect self reported memory deficits, Therapy/Recovery hx of lumbar surgery PT-OP-C Subjective Start: 04/16/20 10:19 Freq: Status: Active Protocol: Document 04/29/20 10:30 MB (Rec: 04/29/20 11:23 MB [id number]) OP-PT Subjective Patient Comments Patient Comments I didn't wear shorts. Patient Reported Progress Improving PT-OP-E Functional Tests Start: 04/16/20 15:35 Freq: Status: Active Protocol: Document 04/16/20 12:45 AMB (Rec: 04/16/20 15:36 AMB [email or web address]) Functional Tests Timed Up and Go (TUG) Score 23 Comments FWW management limited the most PT-OP-G Mobility & Gait Start: 04/16/20 10:19 Freq: Status: Active Protocol: Document 04/16/20 12:45 AMB (Rec: 04/16/20 15:35 AMB [email or web address]) OP Mobility Evaluation Transfers Sit to Stand requires UE support when moving from standard height chair OP Gait Assessment Comments Gait Comments Ambulating with FWW good step length, fairly slow with backing up with walker and with turns. PT-OP-J Posture/Palpation/Skin Start: 04/16/20 10:19 Freq: Status: Active Protocol: Document 04/16/20 12:45 AMB (Rec: 04/16/20 15:35 AMB [email or web address]) Skin Assessment Edema Assessment Right Leg Edema Type Pitting Edema Degree 3+ Comments 3+ at ankle, no pitting at knee, but swelling is present throughout, mild bruising at knee Circumference Measurement 2 Location L mid patella Measurement (Centimeters) 51 1 Location R mid patella Measurement (Centimeters) 44 Incisional Assessment Incision Appearance/Comments incision is covered, no redness noted in knee that is visible PT-OP-K Range of Motion Start: 04/16/20 10:19 Freq: Status: Active Protocol: Document 04/16/20 12:45 AMB (Rec: 04/16/20 15:35 AMB [email or web address]) Knee Goniometric Range of Motion Knee Right Patient Position Supine Flexion Active (degrees) 103 Flexion Passive (degrees) 110 Extension Active (degrees) 9 Extension Passive (degrees) 7 Left Patient Position Supine Flexion Active (degrees) 128 Flexion Passive (degrees) 131 Extension Active (degrees) 0 PT-OP-M Strength Start: 04/16/20 10:19 Freq: Status: Active Protocol: Document 04/16/20 12:45 AMB (Rec: 04/16/20 15:35 AMB [email or web address]) Knee Strength Knee Manual Muscle Testing Right Flexion (S2) 4 Good Extension (L3) 4- Good- Left Flexion (S2) 4+ Good+ Extension (L3) 4+ Good+ PT-OP-Q Treatments Start: 04/16/20 10:19 Freq: Status: Active Protocol: Document 04/29/20 10:30 MB (Rec: 04/29/20 11:22 MB [id number]) Cardio Equipment Bicycle (Upright) Duration (Minutes) 10 Resistance 10 Seat Position 8 Therapeutic Exercises Supine Exercises Hamstring stretch Side bilateral Comments 30 sec AP with martial art belt Derek stretch Side bilateral Comments 45 sec, pelvic tilt, progress heel to bum SLR Side right Comments 5 reps, QS first, toes up, count slow up and down heel slide Side right Comments 5 reps slowly Sitting Exercises Knee strengthening flexion and extension Side bilateral Reps/Minutes 10 reps x3 Comments Level 1 band PT-OP-T Assessment and Plan Start: 04/16/20 10:19 Freq: Status: Active Protocol: Document 04/29/20 10:30 MB (Rec: 04/29/20 11:22 MB [id number]) Physical Therapy Assessment Rehab Potential Rehabilitation Potential Good Evaluation Complexity Number of Personal Factors/Comorbidities 1-2 Number of Body Systems Impaired 4 or More Clinical Presentation at Evaluation Stable Impairments Impairments Balance,Edema,Functional Activities,Functional Mobility ,Gait,Integument,Pain,ROM, Strength Goals Five Impairment Gait Short Term Goal (STG) Nevaeh will ambulate with a SPC/ walking stick for 6 minutes without antalgic gait. STG Duration 4 weeks Four Impairment ADLs Short Term Goal (STG) Nevaeh will ascend and descend a flight of stairs with one railing without an increase in baseline pain. STG Duration 4 weeks Group Home Goal (LTG) Pt will be able to return to gardening without difficulty LTG Duration 8 weeks Three Impairment ROM Short Term Goal (STG) Pt will have 0-120 deg AROM. STG Duration 4 weeks Two Impairment Strength Short Term Goal (STG) Nevaeh will be independent and consistent with her HEP. STG Duration 4 weeks Group Home Goal (LTG) Nevaeh will improve her LE strength so that she can stand from a standard height chair with little to no UE support. LTG Duration 8 weeks One Impairment Swelling Short Term Goal (STG) Nevaeh will decrease her swelling so that she does not have any pitting edema. STG Duration 4 weeks Assessment Summary Assessment Progress with core engagement, Derek stretch today. Con't range, strengthening and balance progression. Con't manual work for right LE edema and flexibility. Physical Therapy Plan Frequency and Duration Frequency of Treatment 2x/Week Duration of Treatment 10 weeks Plan of Care Start Date 04/16/20 Plan of Care End Date 06/25/20 Therapeutic Interventions Therapeutic Interventions Gait Training,Home Exercise Program,Manual Therapy, Neuromuscular Re-education, Self-Care/Home Management, Therapeutic Activities, Therapeutic Exercises Modalities Cold Pack/Ice Massage,Electric Stimulation Next Visit Focus/Plan Next Note Type Treatment Note Next Visit Plan Progress balance exercises, further strengthening and range
--- NOTE | 2020-05-01 13:59 | PT.OTN ---
Current Diagnoses Unilateral primary osteoarthritis, right knee (05/01/20) Other abnormalities of gait and mobility (05/01/20) Physical Therapy Treatment Note PT-OP-A Visit Information Start: 04/16/20 10:19 Freq: Status: Active Protocol: Document 05/01/20 13:46 AW (Rec: 05/01/20 13:59 AW [email or web address]) Out-Patient Physical Therapy Visit Information Visit Information Visit Type Treatment Note Visit Start Time 13:00 Visit Stop Time 13:44 Total Visit Minutes 44 Visit Number 6 PT-OP-B Current Condition Start: 04/16/20 10:19 Freq: Status: Active Protocol: Document 04/16/20 12:44 AMB (Rec: 04/16/20 13:22 AMB [id number]) Current Condition History of Current Condition Onset Date 04/10/20 Current Complaints R TKA History of Current Condition 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 She is using a FWW currently. She lives with her daughter and son in law and does not need to do any stairs to get into her part of the house, although there are stairs to get into their house. She has a walk in shower and was able to shower yesterday with her daughter's supervision. She reports she is taking ibuprofen and tylenol for pain relief with one opiate medication at bed time. She had previously had a L TKA which she felt rehabed well. Treatment Goals Patient/Caregiver Goals Walking, previously without assistive device, gardening ( getting into kneeling and getting back up), walking on uneven surfaces. Prior Functional Status Baseline Function- ADL's Modified Independent Baseline Function- Mobility Modified Independent Baseline Function- Gait Community ambulator without AD , reports some difficulty with uneven terrain Current Functional Impairments (Reported) Functional Limitations- ADL's Using FWW for ambulation, needs UE for sit to stand Personal Factors Other Personal Factors That May Effect self reported memory deficits, Therapy/Recovery hx of lumbar surgery PT-OP-C Subjective Start: 04/16/20 10:19 Freq: Status: Active Protocol: Document 05/01/20 13:46 AW (Rec: 05/01/20 13:59 AW [email or web address]) OP-PT Subjective Patient Comments Patient Comments I walked to the mailbox and back without my cane. [place] pretty good PT-OP-E Functional Tests Start: 04/16/20 15:35 Freq: Status: Active Protocol: Document 04/16/20 12:45 AMB (Rec: 04/16/20 15:36 AMB [email or web address]) Functional Tests Timed Up and Go (TUG) Score 23 Comments FWW management limited the most PT-OP-G Mobility & Gait Start: 04/16/20 10:19 Freq: Status: Active Protocol: Document 04/16/20 12:45 AMB (Rec: 04/16/20 15:35 AMB [email or web address]) OP Mobility Evaluation Transfers Sit to Stand requires UE support when moving from standard height chair OP Gait Assessment Comments Gait Comments Ambulating with FWW good step length, fairly slow with backing up with walker and with turns. PT-OP-J Posture/Palpation/Skin Start: 04/16/20 10:19 Freq: Status: Active Protocol: Document 04/16/20 12:45 AMB (Rec: 04/16/20 15:35 AMB [email or web address]) Skin Assessment Edema Assessment Right Leg Edema Type Pitting Edema Degree 3+ Comments 3+ at ankle, no pitting at knee, but swelling is present throughout, mild bruising at knee Circumference Measurement 2 Location L mid patella Measurement (Centimeters) 51 1 Location R mid patella Measurement (Centimeters) 44 Incisional Assessment Incision Appearance/Comments incision is covered, no redness noted in knee that is visible PT-OP-K Range of Motion Start: 04/16/20 10:19 Freq: Status: Active Protocol: Document 04/16/20 12:45 AMB (Rec: 04/16/20 15:35 AMB [email or web address]) Knee Goniometric Range of Motion Knee Right Patient Position Supine Flexion Active (degrees) 103 Flexion Passive (degrees) 110 Extension Active (degrees) 9 Extension Passive (degrees) 7 Left Patient Position Supine Flexion Active (degrees) 128 Flexion Passive (degrees) 131 Extension Active (degrees) 0 PT-OP-M Strength Start: 04/16/20 10:19 Freq: Status: Active Protocol: Document 04/16/20 12:45 AMB (Rec: 04/16/20 15:35 AMB [email or web address]) Knee Strength Knee Manual Muscle Testing Right Flexion (S2) 4 Good Extension (L3) 4- Good- Left Flexion (S2) 4+ Good+ Extension (L3) 4+ Good+ PT-OP-Q Treatments Start: 04/16/20 10:19 Freq: Status: Active Protocol: Document 05/01/20 13:46 AW (Rec: 05/01/20 13:59 AW [email or web address]) Cardio Equipment Bicycle (Upright) Duration (Minutes) 5 Resistance 10 Seat Position 8 Therapeutic Exercises Supine Exercises Derek stretch Side bilateral Reps/Minutes 30 SH x 4 Comments 30 sec, pelvic tilt, therapist assist for heel to bum SLR Side right Comments 5 reps, QS first, toes up, count slow up and down heel slide Side right Comments 5 reps slowly, cues for knee posture PF stretch Side right Reps/Minutes 2 min Comments contract/relax Standing Exercises 1 Standing Exercise Name sit to stand Reps/Minutes x5 Comments mat table at 22; minimal UE support Manual Therapy Treatment Other Other Manual Treatments Edema massage distal to proximal with special attention to fluctuance at distomedial patella and in popliteal space. Grade II patellar mobs. With passive extension hang assisted by towel roll under ankle. PT-OP-T Assessment and Plan Start: 04/16/20 10:19 Freq: Status: Active Protocol: Document 05/01/20 13:46 AW (Rec: 05/01/20 13:59 AW [email or web address]) Physical Therapy Assessment Rehab Potential Rehabilitation Potential Good Evaluation Complexity Number of Personal Factors/Comorbidities 1-2 Number of Body Systems Impaired 4 or More Clinical Presentation at Evaluation Stable Impairments Impairments Balance,Edema,Functional Activities,Functional Mobility ,Gait,Integument,Pain,ROM, Strength Goals Five Impairment Gait Short Term Goal (STG) Nevaeh will ambulate with a SPC/ walking stick for 6 minutes without antalgic gait. STG Duration 4 weeks Four Impairment ADLs Short Term Goal (STG) Nevaeh will ascend and descend a flight of stairs with one railing without an increase in baseline pain. STG Duration 4 weeks Intermediate Goal (LTG) Pt will be able to return to gardening without difficulty LTG Duration 8 weeks Three Impairment ROM Short Term Goal (STG) Pt will have 0-120 deg AROM. STG Duration 4 weeks Two Impairment Strength Short Term Goal (STG) Nevaeh will be independent and consistent with her HEP. STG Duration 4 weeks Intermediate Goal (LTG) Nevaeh will improve her LE strength so that she can stand from a standard height chair with little to no UE support. LTG Duration 8 weeks One Impairment Swelling Short Term Goal (STG) Nevaeh will decrease her swelling so that she does not have any pitting edema. STG Duration 4 weeks Assessment Summary Assessment Pt tolerated upright bike today. She states she did some biking at home this morning so cut short in clinic. Continued manual therapy for edema and trigger points in lateral gastroc. Pt is ambulating without assistive device with mildly decreased RLE stance time and limited activity tolerance. Active flexion measured today was 113 degrees. Physical Therapy Plan Frequency and Duration Frequency of Treatment 2x/Week Duration of Treatment 10 weeks Plan of Care Start Date 04/16/20 Plan of Care End Date 06/25/20 Therapeutic Interventions Therapeutic Interventions Gait Training,Home Exercise Program,Manual Therapy, Neuromuscular Re-education, Self-Care/Home Management, Therapeutic Activities, Therapeutic Exercises Modalities Cold Pack/Ice Massage,Electric Stimulation Next Visit Focus/Plan Next Note Type Treatment Note Next Visit Plan Progress balance exercises, further strengthening and range
--- NOTE | 2020-05-06 09:48 | PT.OTN ---
Current Diagnoses Unilateral primary osteoarthritis, right knee (05/06/20) Other abnormalities of gait and mobility (05/06/20) Physical Therapy Treatment Note PT-OP-A Visit Information Start: 04/16/20 10:19 Freq: Status: Active Protocol: Document 05/06/20 09:03 SP (Rec: 05/06/20 12:02 SP [id number]) Out-Patient Physical Therapy Visit Information Visit Information Visit Type Treatment Note Visit Start Time 09:03 Visit Stop Time 09:48 Total Visit Minutes 45 Visit Number 7 Number of CONTRACTOR [employer] ENGINEERING Visits 1 PT-OP-B Current Condition Start: 04/16/20 10:19 Freq: Status: Active Protocol: Document 04/16/20 12:44 AMB (Rec: 04/16/20 13:22 AMB [id number]) Current Condition History of Current Condition Onset Date 04/10/20 Current Complaints R TKA History of Current Condition 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 She is using a FWW currently. She lives with her daughter and son in law and does not need to do any stairs to get into her part of the house, although there are stairs to get into their house. She has a walk in shower and was able to shower yesterday with her daughter's supervision. She reports she is taking ibuprofen and tylenol for pain relief with one opiate medication at bed time. She had previously had a L TKA which she felt rehabed well. Treatment Goals Patient/Caregiver Goals Walking, previously without assistive device, gardening ( getting into kneeling and getting back up), walking on uneven surfaces. Prior Functional Status Baseline Function- ADL's Modified Independent Baseline Function- Mobility Modified Independent Baseline Function- Gait Community ambulator without AD , reports some difficulty with uneven terrain Current Functional Impairments (Reported) Functional Limitations- ADL's Using FWW for ambulation, needs UE for sit to stand Personal Factors Other Personal Factors That May Effect self reported memory deficits, Therapy/Recovery hx of lumbar surgery PT-OP-C Subjective Start: 04/16/20 10:19 Freq: Status: Active Protocol: Document 05/06/20 09:03 SP (Rec: 05/06/20 12:02 SP [id number]) OP-PT Subjective Patient Comments Patient Comments Pt arrived demonstrating antalgic gait no AD today. Pt stated I was able to drive today and not using my cane at this point and usually warm up on the recumbent bike before coming to PT. I am able to move my R knee more. . Pt states compliant with HEP at home. Noted Lateral R knee swelling pocket diameter of golf ball and 1/4 depth with report I bumped into something trying to avoid my family's dog. Very faint bruising. Patient Reported Progress Improving PT-OP-E Functional Tests Start: 04/16/20 15:35 Freq: Status: Active Protocol: Document 04/16/20 12:45 AMB (Rec: 04/16/20 15:36 AMB [email or web address]) Functional Tests Timed Up and Go (TUG) Score 23 Comments FWW management limited the most PT-OP-G Mobility & Gait Start: 04/16/20 10:19 Freq: Status: Active Protocol: Document 04/16/20 12:45 AMB (Rec: 04/16/20 15:35 AMB [email or web address]) OP Mobility Evaluation Transfers Sit to Stand requires UE support when moving from standard height chair OP Gait Assessment Comments Gait Comments Ambulating with FWW good step length, fairly slow with backing up with walker and with turns. PT-OP-J Posture/Palpation/Skin Start: 04/16/20 10:19 Freq: Status: Active Protocol: Document 04/16/20 12:45 AMB (Rec: 04/16/20 15:35 AMB [email or web address]) Skin Assessment Edema Assessment Right Leg Edema Type Pitting Edema Degree 3+ Comments 3+ at ankle, no pitting at knee, but swelling is present throughout, mild bruising at knee Circumference Measurement 2 Location L mid patella Measurement (Centimeters) 51 1 Location R mid patella Measurement (Centimeters) 44 Incisional Assessment Incision Appearance/Comments incision is covered, no redness noted in knee that is visible PT-OP-K Range of Motion Start: 04/16/20 10:19 Freq: Status: Active Protocol: Document 05/06/20 09:03 SP (Rec: 05/06/20 12:04 SP [id number]) Knee Goniometric Range of Motion Knee Right Knee ROM WFL No Patient Position Supine Flexion Active (degrees) 127 Extension Active (degrees) 1 Comments Did not assess PROM today. R foot propped up on 1/2 foam roll during measurement during ext. PT-OP-M Strength Start: 04/16/20 10:19 Freq: Status: Active Protocol: Document 04/16/20 12:45 AMB (Rec: 04/16/20 15:35 AMB [email or web address]) Knee Strength Knee Manual Muscle Testing Right Flexion (S2) 4 Good Extension (L3) 4- Good- Left Flexion (S2) 4+ Good+ Extension (L3) 4+ Good+ PT-OP-Q Treatments Start: 04/16/20 10:19 Freq: Status: Active Protocol: Document 05/06/20 09:03 SP (Rec: 05/06/20 12:02 SP [id number]) Cardio Equipment Bicycle (Upright) Duration (Minutes) 6 Resistance 10 Seat Position 7 Therapeutic Exercises Supine Exercises sciatic nerve floss Supine Exercise Name clasp hands behind lower thigh , R knee ext w/ ankle pump Side right Reps/Minutes x10 Comments cued set up and proper form to assist R LB/ pelvis discomfort Hamstring stretch Side bilateral Equipment Used gait belt Comments 30 sec AP Derek stretch Supine Exercise Name L knee bent on table (diagonal angle for safety EO table) Side right Equipment Used PROM of table and use of strap around ankle Reps/Minutes 30 x 2 Comments 30 sec, pelvic tilt, therapist assist for heel to bum SLR Side right Comments 5 reps, QS first, toes up, count slow up and down, no higher than opp knee Standing Exercises SLS Side bilateral Resistance Contact counter self support Equipment Used counter in front mirror, GB Reps/Minutes difficult maintain stane without support Comments Cued upright posture, wt shift over stance leg, TA Gait Training Gait Activity stair mgt Comments ascend/descend 8 stair R HR step over step patterning S, decrease stance time on RLE but able to perform safely to complete at home between her and family in law appt. level surface Description fwd/bwd/high knee march Device Used GB, mirror Level of Assistance CGA- Min Surface floor Distance/Duration 20 ft x3 laps each direction Treatment Focus level pelvis, decrease lateral trunk lean Comments Cued elevated posture, heel toe, level pelvis invision book on head Manual Therapy Treatment Soft Tissue Mobilization scar mobility Body Location R knee scar mobility Intensity/Depth Superficial Body Position Sitting Comments Long sitting R leg supported, parallel thumb side scar placement inf/sup/lat/med together (no spreading scar). Educated can use vit E if prefer after scar mobility but not ok scabbed areas yet. Taping R lateral knee swelling pocket Body Location basket weave very slight tension Treatment Focus Improve lymph return Type of Tape Kinesio Tape Skin Inspection normal, slight bruising Comments Size golfball diameter, bumped into something avoiding dog. PT-OP-T Assessment and Plan Start: 04/16/20 10:19 Freq: Status: Active Protocol: Document 05/06/20 09:03 SP (Rec: 05/06/20 12:02 SP [id number]) Physical Therapy Assessment Goals Five Impairment Gait Short Term Goal (STG) Nevaeh will ambulate with a SPC/ walking stick for 6 minutes without antalgic gait. STG Duration 4 weeks Four Impairment ADLs Short Term Goal (STG) Nevaeh will ascend and descend a flight of stairs with one railing without an increase in baseline pain. STG Duration 4 weeks Supervisor [employer] Goal (LTG) Pt will be able to return to gardening without difficulty LTG Duration 8 weeks Three Impairment ROM Short Term Goal (STG) Pt will have 0-120 deg AROM. 05/06/20: progressing 1-127 deg R knee AROM. STG Duration 4 weeks Two Impairment Strength Short Term Goal (STG) Nevaeh will be independent and consistent with her HEP. STG Duration 4 weeks Skilled Nursing Goal (LTG) Nevaeh will improve her LE strength so that she can stand from a standard height chair with little to no UE support. LTG Duration 8 weeks One Impairment Swelling Short Term Goal (STG) Nevaeh will decrease her swelling so that she does not have any pitting edema. STG Duration 4 weeks Progress Towards Goals Progress Towards Goals Progressing Toward Goals Progress Comments Pt is making gain in AROM R knee, not using cane anymore but demonstrates antalgic gait that improves with cuing for equal stance time. Assessment Summary Assessment Pt improved in level pelvis during gait post f/b/ high knees marching in front mirror for self feedback with cuing for slower pacing over stance leg. She requires contact during SLS activity initiated today, no pain BLE. Cuing required for supine review, quad facilitation. Added sciatic nerve floss in supine due to reports of sciatic R LBP lately. Education in scar mobility today with good self performance after manual demonstration. Provided basket weave using K taping to R lateral knee due to swelling noted from bumping into something avoiding dog. Educated awareness of adverse affect to tape and remove if happens otherwise can keep on for tolerance and affectiveness, ok to get wet in shower. Pt had no adverse affects to tx today. Next tx continue review quality and proper form of ther ex, gait quality, Physical Therapy Plan Frequency and Duration Frequency of Treatment 2x/Week Duration of Treatment 10 weeks Plan of Care Start Date 04/16/20 Plan of Care End Date 06/25/20 Therapeutic Interventions Therapeutic Interventions Gait Training,Home Exercise Program,Manual Therapy, Neuromuscular Re-education, Self-Care/Home Management, Therapeutic Activities, Therapeutic Exercises Modalities Cold Pack/Ice Massage,Electric Stimulation Next Visit Focus/Plan Next Note Type Treatment Note Next Visit Plan Assess responce to last tx: K taping R lat knee, scar mob, HEP review, gait quality, added sciatic nerve floss last tx. Next tx assess edema measurements. Continue per PT POC:Progress balance exercises, gait quality, further strengthening and range.
--- NOTE | 2020-05-08 16:45 | PT.OTN ---
Current Diagnoses Unilateral primary osteoarthritis, right knee (05/08/20) Other abnormalities of gait and mobility (05/08/20) Physical Therapy Treatment Note PT-OP-A Visit Information Start: 04/16/20 10:19 Freq: Status: Active Protocol: Document 05/08/20 16:28 AW (Rec: 05/08/20 16:44 AW [email or web address]) Out-Patient Physical Therapy Visit Information Visit Information Visit Type Treatment Note Visit Start Time 13:00 Visit Stop Time 13:45 Total Visit Minutes 45 Visit Number 8 Number of DIRECTOR TRAFFIC [employer] PLANNING Visits 0 PT-OP-B Current Condition Start: 04/16/20 10:19 Freq: Status: Active Protocol: Document 04/16/20 12:44 AMB (Rec: 04/16/20 13:22 AMB [id number]) Current Condition History of Current Condition Onset Date 04/10/20 Current Complaints R TKA History of Current Condition 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 She is using a FWW currently. She lives with her daughter and son in law and does not need to do any stairs to get into her part of the house, although there are stairs to get into their house. She has a walk in shower and was able to shower yesterday with her daughter's supervision. She reports she is taking ibuprofen and tylenol for pain relief with one opiate medication at bed time. She had previously had a L TKA which she felt rehabed well. Treatment Goals Patient/Caregiver Goals Walking, previously without assistive device, gardening ( getting into kneeling and getting back up), walking on uneven surfaces. Prior Functional Status Baseline Function- ADL's Modified Independent Baseline Function- Mobility Modified Independent Baseline Function- Gait Community ambulator without AD , reports some difficulty with uneven terrain Current Functional Impairments (Reported) Functional Limitations- ADL's Using FWW for ambulation, needs UE for sit to stand Personal Factors Other Personal Factors That May Effect self reported memory deficits, Therapy/Recovery hx of lumbar surgery PT-OP-C Subjective Start: 04/16/20 10:19 Freq: Status: Active Protocol: Document 05/08/20 16:28 AW (Rec: 05/08/20 16:44 AW [email or web address]) OP-PT Subjective Patient Comments Patient Comments Pt arrived with tape still in place from Wednesday in good condition. I think it's less swollen. PT-OP-E Functional Tests Start: 04/16/20 15:35 Freq: Status: Active Protocol: Document 04/16/20 12:45 AMB (Rec: 04/16/20 15:36 AMB [email or web address]) Functional Tests Timed Up and Go (TUG) Score 23 Comments FWW management limited the most PT-OP-G Mobility & Gait Start: 04/16/20 10:19 Freq: Status: Active Protocol: Document 04/16/20 12:45 AMB (Rec: 04/16/20 15:35 AMB [email or web address]) OP Mobility Evaluation Transfers Sit to Stand requires UE support when moving from standard height chair OP Gait Assessment Comments Gait Comments Ambulating with FWW good step length, fairly slow with backing up with walker and with turns. PT-OP-J Posture/Palpation/Skin Start: 04/16/20 10:19 Freq: Status: Active Protocol: Document 04/16/20 12:45 AMB (Rec: 04/16/20 15:35 AMB [email or web address]) Skin Assessment Edema Assessment Right Leg Edema Type Pitting Edema Degree 3+ Comments 3+ at ankle, no pitting at knee, but swelling is present throughout, mild bruising at knee Circumference Measurement 2 Location L mid patella Measurement (Centimeters) 51 1 Location R mid patella Measurement (Centimeters) 44 Incisional Assessment Incision Appearance/Comments incision is covered, no redness noted in knee that is visible PT-OP-K Range of Motion Start: 04/16/20 10:19 Freq: Status: Active Protocol: Document 05/06/20 09:03 SP (Rec: 05/06/20 12:04 SP [id number]) Knee Goniometric Range of Motion Knee Right Knee ROM WFL No Patient Position Supine Flexion Active (degrees) 127 Extension Active (degrees) 1 Comments Did not assess PROM today. R foot propped up on 1/2 foam roll during measurement during ext. PT-OP-M Strength Start: 04/16/20 10:19 Freq: Status: Active Protocol: Document 04/16/20 12:45 AMB (Rec: 04/16/20 15:35 AMB [email or web address]) Knee Strength Knee Manual Muscle Testing Right Flexion (S2) 4 Good Extension (L3) 4- Good- Left Flexion (S2) 4+ Good+ Extension (L3) 4+ Good+ PT-OP-Q Treatments Start: 04/16/20 10:19 Freq: Status: Active Protocol: Document 05/08/20 16:28 AW (Rec: 05/08/20 16:44 AW [email or web address]) Cardio Equipment Bicycle (Upright) Duration (Minutes) 6 Resistance 10 Seat Position 7 Therapeutic Exercises Supine Exercises sciatic nerve floss Supine Exercise Name clasp hands behind lower thigh , R knee ext w/ ankle pump Side right Reps/Minutes x10 Comments cued set up and proper form to assist R LB/ pelvis discomfort Hamstring stretch Side bilateral Equipment Used gait belt Comments biased toward adduction Derek stretch Supine Exercise Name L knee bent on table (diagonal angle for safety EO table) Side right Equipment Used PROM by therapist and self use of strap around ankle Reps/Minutes 30 x 4 Comments 30 sec, pelvic tilt, therapist assist for heel to bum SLR Side right Comments 5 reps, QS first, toes up, count slow up and down, no higher than opp knee Standing Exercises 6 Standing Exercise Name step ups Side right Equipment Used 6 step Reps/Minutes 15 reps Comments with fingertip support of left hand on left rail 1 Standing Exercise Name sit to stand Reps/Minutes x5 Comments mat table at 22; minimal UE support Gait Training Gait Activity stair mgt Comments ascend/descend 48 stair x 4 R HR step over step patterning level surface Description fwd Device Used none Level of Assistance SBA Surface floor Distance/Duration 200 foot lap x 2 Treatment Focus dian, RLE stance time Comments Metronome set to 95 bpm used as external cue for stance time. Pt reverts to decreased RLE stance time over time but is able to maintain more equal WB ~10 seconds at a time. Manual Therapy Treatment Soft Tissue Mobilization MLD Body Location MLD Intensity/Depth Superficial Body Position Supine Comments to promote lymph return scar mobility Body Location R knee scar mobility Intensity/Depth Superficial Body Position Sitting Joint Mobilizations patellar glides Direction med/lat, sup/inf Grade II Body Position Supine Reps/Duration 3 min PT-OP-T Assessment and Plan Start: 04/16/20 10:19 Freq: Status: Active Protocol: Document 05/08/20 16:28 AW (Rec: 05/08/20 16:44 AW [email or web address]) Physical Therapy Assessment Evaluation Complexity Number of Personal Factors/Comorbidities 1-2 Number of Body Systems Impaired 4 or More Clinical Presentation at Evaluation Stable Impairments Impairments Balance,Edema,Functional Activities,Functional Mobility ,Gait,Integument,Pain,ROM, Strength Goals Five Impairment Gait Short Term Goal (STG) Nevaeh will ambulate with a SPC/ walking stick for 6 minutes without antalgic gait. STG Duration 4 weeks Four Impairment ADLs Short Term Goal (STG) Nevaeh will ascend and descend a flight of stairs with one railing without an increase in baseline pain. STG Duration 4 weeks Observation Nurse Goal (LTG) Pt will be able to return to gardening without difficulty LTG Duration 8 weeks Three Impairment ROM Short Term Goal (STG) Pt will have 0-120 deg AROM. 05/06/20: progressing 1-127 deg R knee AROM. STG Duration 4 weeks Two Impairment Strength Short Term Goal (STG) Nevaeh will be independent and consistent with her HEP. STG Duration 4 weeks Group Home Goal (LTG) Nevaeh will improve her LE strength so that she can stand from a standard height chair with little to no UE support. LTG Duration 8 weeks One Impairment Swelling Short Term Goal (STG) Nevaeh will decrease her swelling so that she does not have any pitting edema. STG Duration 4 weeks Assessment Summary Assessment Pt improved RLE weightbearing during gait today with dian training assisted by metronome for audio cue. Pt continues to require cues for HEP form but is progressing well with ROM and strength. Physical Therapy Plan Frequency and Duration Frequency of Treatment 2x/Week Duration of Treatment 10 weeks Plan of Care Start Date 04/16/20 Plan of Care End Date 06/25/20 Therapeutic Interventions Therapeutic Interventions Gait Training,Home Exercise Program,Manual Therapy, Neuromuscular Re-education, Self-Care/Home Management, Therapeutic Activities, Therapeutic Exercises Modalities Cold Pack/Ice Massage,Electric Stimulation Next Visit Focus/Plan Next Note Type Treatment Note Next Visit Plan Continue per PT POC: Progress balance exercises, gait quality, further strengthening and range.
--- NOTE | 2020-05-13 13:08 | PT.OTN ---
Current Diagnoses Unilateral primary osteoarthritis, right knee (05/13/20) Other abnormalities of gait and mobility (05/13/20) Physical Therapy Treatment Note PT-OP-A Visit Information Start: 04/16/20 10:19 Freq: Status: Active Protocol: Document 05/13/20 12:17 SP (Rec: 05/13/20 13:29 SP [id number]) Out-Patient Physical Therapy Visit Information Visit Information Visit Type Treatment Note Visit Start Time 12:17 Visit Stop Time 13:08 Total Visit Minutes 51 Visit Number 9 Number of MANAGER PAYMENT Visits 1 PT-OP-B Current Condition Start: 04/16/20 10:19 Freq: Status: Active Protocol: Document 04/16/20 12:44 AMB (Rec: 04/16/20 13:22 AMB [id number]) Current Condition History of Current Condition Onset Date 04/10/20 Current Complaints R TKA History of Current Condition 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 She is using a FWW currently. She lives with her daughter and son in law and does not need to do any stairs to get into her part of the house, although there are stairs to get into their house. She has a walk in shower and was able to shower yesterday with her daughter's supervision. She reports she is taking ibuprofen and tylenol for pain relief with one opiate medication at bed time. She had previously had a L TKA which she felt rehabed well. Treatment Goals Patient/Caregiver Goals Walking, previously without assistive device, gardening ( getting into kneeling and getting back up), walking on uneven surfaces. Prior Functional Status Baseline Function- ADL's Modified Independent Baseline Function- Mobility Modified Independent Baseline Function- Gait Community ambulator without AD , reports some difficulty with uneven terrain Current Functional Impairments (Reported) Functional Limitations- ADL's Using FWW for ambulation, needs UE for sit to stand Personal Factors Other Personal Factors That May Effect self reported memory deficits, Therapy/Recovery hx of lumbar surgery PT-OP-C Subjective Start: 04/16/20 10:19 Freq: Status: Active Protocol: Document 05/13/20 12:17 SP (Rec: 05/13/20 13:29 SP [id number]) OP-PT Subjective Patient Comments Patient Comments Pt reported isn't doing exercises as much as probably should be but is doing some. Patient Reported Progress Improving PT-OP-E Functional Tests Start: 04/16/20 15:35 Freq: Status: Active Protocol: Document 04/16/20 12:45 AMB (Rec: 04/16/20 15:36 AMB [email or web address]) Functional Tests Timed Up and Go (TUG) Score 23 Comments FWW management limited the most PT-OP-G Mobility & Gait Start: 04/16/20 10:19 Freq: Status: Active Protocol: Document 04/16/20 12:45 AMB (Rec: 04/16/20 15:35 AMB [email or web address]) OP Mobility Evaluation Transfers Sit to Stand requires UE support when moving from standard height chair OP Gait Assessment Comments Gait Comments Ambulating with FWW good step length, fairly slow with backing up with walker and with turns. PT-OP-J Posture/Palpation/Skin Start: 04/16/20 10:19 Freq: Status: Active Protocol: Document 04/16/20 12:45 AMB (Rec: 04/16/20 15:35 AMB [email or web address]) Skin Assessment Edema Assessment Right Leg Edema Type Pitting Edema Degree 3+ Comments 3+ at ankle, no pitting at knee, but swelling is present throughout, mild bruising at knee Circumference Measurement 2 Location L mid patella Measurement (Centimeters) 51 1 Location R mid patella Measurement (Centimeters) 44 Incisional Assessment Incision Appearance/Comments incision is covered, no redness noted in knee that is visible PT-OP-K Range of Motion Start: 04/16/20 10:19 Freq: Status: Active Protocol: Document 05/06/20 09:03 SP (Rec: 05/06/20 12:04 SP [id number]) Knee Goniometric Range of Motion Knee Right Knee ROM WFL No Patient Position Supine Flexion Active (degrees) 127 Extension Active (degrees) 1 Comments Did not assess PROM today. R foot propped up on 1/2 foam roll during measurement during ext. PT-OP-M Strength Start: 04/16/20 10:19 Freq: Status: Active Protocol: Document 04/16/20 12:45 AMB (Rec: 04/16/20 15:35 AMB [email or web address]) Knee Strength Knee Manual Muscle Testing Right Flexion (S2) 4 Good Extension (L3) 4- Good- Left Flexion (S2) 4+ Good+ Extension (L3) 4+ Good+ PT-OP-Q Treatments Start: 04/16/20 10:19 Freq: Status: Active Protocol: Document 05/13/20 12:17 SP (Rec: 05/13/20 13:29 SP [id number]) Cardio Equipment Bicycle (Upright) Duration (Minutes) 8 Resistance 10 Seat Position 7 Gym Equipment Shuttle Recovery Unilateral Squats Details focus on extension and med/ lat alignment Resistance 25 Shuttle Recovery Platform Stable Reps/Time x10 Bilateral Squats Details knee alignment Resistance 50# Reps/Time 2x10 Sport Cord resisted gait f/b/side stepping Exercise Details glut/ abductor facilitation Cord/Resistance green Reps/Duration 5 reps each direction (b/side today) Comments cued slow pacing and SLS eccentric control. Therapeutic Exercises Standing Exercises TKE Standing Exercise Name Add HEP Side right Resistance # 1 TB Equipment Used rail/ chair contact Reps/Minutes 2x10 Comments cued upright posture 6 Standing Exercise Name step up/ downs (patterning repeated Leading each LE) Side right Equipment Used 6 step Reps/Minutes 2x10 reps Comments cued R glut facilitation into extension SLS Side bilateral Resistance heavy contact counter self support Equipment Used counter in front mirror, GB Reps/Minutes difficult maintain stane without support Comments Cued upright posture, wt shift over stance leg, TA PT-OP-T Assessment and Plan Start: 04/16/20 10:19 Freq: Status: Active Protocol: Document 05/13/20 12:17 SP (Rec: 05/13/20 13:29 SP [id number]) Physical Therapy Assessment Goals Five Impairment Gait Short Term Goal (STG) Nevaeh will ambulate with a SPC/ walking stick for 6 minutes without antalgic gait. STG Duration 4 weeks Four Impairment ADLs Short Term Goal (STG) Nevaeh will ascend and descend a flight of stairs with one railing without an increase in baseline pain. STG Duration 4 weeks Loom Fixer Supervisor Goal (LTG) Pt will be able to return to gardening without difficulty LTG Duration 8 weeks Three Impairment ROM Short Term Goal (STG) Pt will have 0-120 deg AROM. 05/06/20: progressing 1-127 deg R knee AROM. STG Duration 4 weeks Two Impairment Strength Short Term Goal (STG) Nevaeh will be independent and consistent with her HEP. STG Duration 4 weeks [facility] Goal (LTG) Nevaeh will improve her LE strength so that she can stand from a standard height chair with little to no UE support. LTG Duration 8 weeks One Impairment Swelling Short Term Goal (STG) Nevaeh will decrease her swelling so that she does not have any pitting edema. STG Duration 4 weeks Assessment Summary Assessment Tx focused on gait quality, increase glut facilitation and stance time during opposite Le advancement/ transition with improvement with cuing for slow pacing control, initiated sport cord resisted walking backk/side today (add forward next tx) to assist gait quality, improved end of tx. Recommended awareness of upright posture and glut hip extension to improve stance time with verbal confirmation. Initiated TKE today with good form. Next tx review HEP for proper form and compliance. Physical Therapy Plan Frequency and Duration Frequency of Treatment 2x/Week Duration of Treatment 10 weeks Plan of Care Start Date 04/16/20 Plan of Care End Date 06/25/20 Therapeutic Interventions Therapeutic Interventions Gait Training,Home Exercise Program,Manual Therapy, Neuromuscular Re-education, Self-Care/Home Management, Therapeutic Activities, Therapeutic Exercises Modalities Cold Pack/Ice Massage,Electric Stimulation Next Visit Focus/Plan Next Note Type Treatment Note Next Visit Plan Assess response to last tx: TKE, resisted sport cord gait, step ups, gait in mirror with cuing for wt shift over stance leg with end range hip ext. Next tx: reassess K taping for swelling lat R knee , forgot to remove and reapply if needed last tx. Recheck AROM measurements. Continue per PT POC: Progress balance exercises, gait quality, further strengthening and range.
--- NOTE | 2020-05-15 15:54 | PT.OTN ---
Current Diagnoses Unilateral primary osteoarthritis, right knee (05/15/20) Other abnormalities of gait and mobility (05/15/20) Physical Therapy Treatment Note PT-OP-A Visit Information Start: 04/16/20 10:19 Freq: Status: Active Protocol: Document 05/15/20 15:41 AW (Rec: 05/15/20 15:54 AW [email or web address]) Out-Patient Physical Therapy Visit Information Visit Information Visit Type Treatment Note Visit Start Time 13:00 Visit Stop Time 13:43 Total Visit Minutes 43 Visit Number 10 Number of LOGISTIC MANAGER Visits 0 PT-OP-B Current Condition Start: 04/16/20 10:19 Freq: Status: Active Protocol: Document 04/16/20 12:44 AMB (Rec: 04/16/20 13:22 AMB [id number]) Current Condition History of Current Condition Onset Date 04/10/20 Current Complaints R TKA History of Current Condition 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 She is using a FWW currently. She lives with her daughter and son in law and does not need to do any stairs to get into her part of the house, although there are stairs to get into their house. She has a walk in shower and was able to shower yesterday with her daughter's supervision. She reports she is taking ibuprofen and tylenol for pain relief with one opiate medication at bed time. She had previously had a L TKA which she felt rehabed well. Treatment Goals Patient/Caregiver Goals Walking, previously without assistive device, gardening ( getting into kneeling and getting back up), walking on uneven surfaces. Prior Functional Status Baseline Function- ADL's Modified Independent Baseline Function- Mobility Modified Independent Baseline Function- Gait Community ambulator without AD , reports some difficulty with uneven terrain Current Functional Impairments (Reported) Functional Limitations- ADL's Using FWW for ambulation, needs UE for sit to stand Personal Factors Other Personal Factors That May Effect self reported memory deficits, Therapy/Recovery hx of lumbar surgery PT-OP-C Subjective Start: 04/16/20 10:19 Freq: Status: Active Protocol: Document 05/15/20 15:41 AW (Rec: 05/15/20 15:54 AW [email or web address]) OP-PT Subjective Patient Comments Patient Comments Pt would like to review TKE exercise Patient Reported Progress Improving PT-OP-E Functional Tests Start: 04/16/20 15:35 Freq: Status: Active Protocol: Document 04/16/20 12:45 AMB (Rec: 04/16/20 15:36 AMB [email or web address]) Functional Tests Timed Up and Go (TUG) Score 23 Comments FWW management limited the most PT-OP-G Mobility & Gait Start: 04/16/20 10:19 Freq: Status: Active Protocol: Document 04/16/20 12:45 AMB (Rec: 04/16/20 15:35 AMB [email or web address]) OP Mobility Evaluation Transfers Sit to Stand requires UE support when moving from standard height chair OP Gait Assessment Comments Gait Comments Ambulating with FWW good step length, fairly slow with backing up with walker and with turns. PT-OP-J Posture/Palpation/Skin Start: 04/16/20 10:19 Freq: Status: Active Protocol: Document 04/16/20 12:45 AMB (Rec: 04/16/20 15:35 AMB [email or web address]) Skin Assessment Edema Assessment Right Leg Edema Type Pitting Edema Degree 3+ Comments 3+ at ankle, no pitting at knee, but swelling is present throughout, mild bruising at knee Circumference Measurement 2 Location L mid patella Measurement (Centimeters) 51 1 Location R mid patella Measurement (Centimeters) 44 Incisional Assessment Incision Appearance/Comments incision is covered, no redness noted in knee that is visible PT-OP-K Range of Motion Start: 04/16/20 10:19 Freq: Status: Active Protocol: Document 05/06/20 09:03 SP (Rec: 05/06/20 12:04 SP [id number]) Knee Goniometric Range of Motion Knee Right Knee ROM WFL No Patient Position Supine Flexion Active (degrees) 127 Extension Active (degrees) 1 Comments Did not assess PROM today. R foot propped up on 1/2 foam roll during measurement during ext. PT-OP-M Strength Start: 04/16/20 10:19 Freq: Status: Active Protocol: Document 04/16/20 12:45 AMB (Rec: 04/16/20 15:35 AMB [email or web address]) Knee Strength Knee Manual Muscle Testing Right Flexion (S2) 4 Good Extension (L3) 4- Good- Left Flexion (S2) 4+ Good+ Extension (L3) 4+ Good+ PT-OP-Q Treatments Start: 04/16/20 10:19 Freq: Status: Active Protocol: Document 05/15/20 15:41 AW (Rec: 05/15/20 15:54 AW [email or web address]) Cardio Equipment Bicycle (Upright) Duration (Minutes) 6 Resistance 10 Seat Position 7 Gym Equipment Sport Cord resisted gait f/b/side stepping Exercise Details glut/ abductor facilitation Cord/Resistance green Reps/Duration 5 reps each direction - back/ side/fwd Comments cued slow pacing and SLS eccentric control. improved control in fwd walk Therapeutic Exercises Standing Exercises 7 Standing Exercise Name iso glut med with ball at wall Side bilateral Equipment Used purple ball Reps/Minutes 5 x 2 Comments cues for level pelvis TKE Side right Resistance # 2 TB Equipment Used rail/ chair contact Reps/Minutes 2x10 Comments cued neutral hips 6 Standing Exercise Name step up/ downs Side bilateral Resistance hand rail on stance side with fingertip support Equipment Used 6 step Reps/Minutes 2x10 reps Comments focus hip extension for glute- dominant movement Manual Therapy Treatment Joint Mobilizations patellar glides Direction med/lat, sup/inf Grade II Body Position Supine Reps/Duration 3 min PT-OP-T Assessment and Plan Start: 04/16/20 10:19 Freq: Status: Active Protocol: Document 05/15/20 15:41 AW (Rec: 05/15/20 15:54 AW [email or web address]) Physical Therapy Assessment Evaluation Complexity Number of Personal Factors/Comorbidities 1-2 Number of Body Systems Impaired 4 or More Clinical Presentation at Evaluation Stable Impairments Impairments Balance,Edema,Functional Activities,Functional Mobility ,Gait,Integument,Pain,ROM, Strength Goals Five Impairment Gait Short Term Goal (STG) Nevaeh will ambulate with a SPC/ walking stick for 6 minutes without antalgic gait. STG Duration 4 weeks Four Impairment ADLs Short Term Goal (STG) Nevaeh will ascend and descend a flight of stairs with one railing without an increase in baseline pain. STG Duration 4 weeks Penitentiary Goal (LTG) Pt will be able to return to gardening without difficulty LTG Duration 8 weeks Three Impairment ROM Short Term Goal (STG) Pt will have 0-120 deg AROM. 05/06/20: progressing 1-127 deg R knee AROM. STG Duration 4 weeks Two Impairment Strength Short Term Goal (STG) Nevaeh will be independent and consistent with her HEP. STG Duration 4 weeks Penitentiary Goal (LTG) Nevaeh will improve her LE strength so that she can stand from a standard height chair with little to no UE support. LTG Duration 8 weeks One Impairment Swelling Short Term Goal (STG) Nevaeh will decrease her swelling so that she does not have any pitting edema. STG Duration 4 weeks Assessment Summary Assessment Treatment focused on pelvic stability in gait. Pt requires set up and frequent cues for exercise form but shows improvement in SLS and control of resisted forward ambulation. Physical Therapy Plan Frequency and Duration Frequency of Treatment 2x/Week Duration of Treatment 10 weeks Plan of Care Start Date 04/16/20 Plan of Care End Date 06/25/20 Therapeutic Interventions Therapeutic Interventions Gait Training,Home Exercise Program,Manual Therapy, Neuromuscular Re-education, Self-Care/Home Management, Therapeutic Activities, Therapeutic Exercises Modalities Cold Pack/Ice Massage,Electric Stimulation Next Visit Focus/Plan Next Note Type Treatment Note Next Visit Plan TKE, resisted sport cord gait, step ups, gait in mirror with cuing for wt shift over stance leg with end range hip ext. Continue per PT POC: Progress balance exercises, gait quality, further strengthening and range.
--- NOTE | 2020-05-20 13:00 | PT.OTN ---
Current Diagnoses Unilateral primary osteoarthritis, right knee (05/20/20) Other abnormalities of gait and mobility (05/20/20) Physical Therapy Treatment Note PT-OP-A Visit Information Start: 04/16/20 10:19 Freq: Status: Active Protocol: Document 05/20/20 12:17 SP (Rec: 05/20/20 13:01 SP [id number]) Out-Patient Physical Therapy Visit Information Visit Information Visit Type Treatment Note Visit Start Time 12:17 Visit Stop Time 13:00 Total Visit Minutes 43 Visit Number 11 Number of NUT PICKER Visits 1 PT-OP-B Current Condition Start: 04/16/20 10:19 Freq: Status: Active Protocol: Document 04/16/20 12:44 AMB (Rec: 04/16/20 13:22 AMB [id number]) Current Condition History of Current Condition Onset Date 04/10/20 Current Complaints R TKA History of Current Condition 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 She is using a FWW currently. She lives with her daughter and son in law and does not need to do any stairs to get into her part of the house, although there are stairs to get into their house. She has a walk in shower and was able to shower yesterday with her daughter's supervision. She reports she is taking ibuprofen and tylenol for pain relief with one opiate medication at bed time. She had previously had a L TKA which she felt rehabed well. Treatment Goals Patient/Caregiver Goals Walking, previously without assistive device, gardening ( getting into kneeling and getting back up), walking on uneven surfaces. Prior Functional Status Baseline Function- ADL's Modified Independent Baseline Function- Mobility Modified Independent Baseline Function- Gait Community ambulator without AD , reports some difficulty with uneven terrain Current Functional Impairments (Reported) Functional Limitations- ADL's Using FWW for ambulation, needs UE for sit to stand Personal Factors Other Personal Factors That May Effect self reported memory deficits, Therapy/Recovery hx of lumbar surgery PT-OP-C Subjective Start: 04/16/20 10:19 Freq: Status: Active Protocol: Document 05/20/20 12:17 SP (Rec: 05/20/20 13:01 SP [id number]) OP-PT Subjective Patient Comments Patient Comments Pt reported saw physician this am and is pleased with ROM and progress so released her to continue PT and doesn't feel needs to see her again. Patient Reported Progress Improving PT-OP-E Functional Tests Start: 04/16/20 15:35 Freq: Status: Active Protocol: Document 04/16/20 12:45 AMB (Rec: 04/16/20 15:36 AMB [email or web address]) Functional Tests Timed Up and Go (TUG) Score 23 Comments FWW management limited the most PT-OP-G Mobility & Gait Start: 04/16/20 10:19 Freq: Status: Active Protocol: Document 04/16/20 12:45 AMB (Rec: 04/16/20 15:35 AMB [email or web address]) OP Mobility Evaluation Transfers Sit to Stand requires UE support when moving from standard height chair OP Gait Assessment Comments Gait Comments Ambulating with FWW good step length, fairly slow with backing up with walker and with turns. PT-OP-J Posture/Palpation/Skin Start: 04/16/20 10:19 Freq: Status: Active Protocol: Document 04/16/20 12:45 AMB (Rec: 04/16/20 15:35 AMB [email or web address]) Skin Assessment Edema Assessment Right Leg Edema Type Pitting Edema Degree 3+ Comments 3+ at ankle, no pitting at knee, but swelling is present throughout, mild bruising at knee Circumference Measurement 2 Location L mid patella Measurement (Centimeters) 51 1 Location R mid patella Measurement (Centimeters) 44 Incisional Assessment Incision Appearance/Comments incision is covered, no redness noted in knee that is visible PT-OP-K Range of Motion Start: 04/16/20 10:19 Freq: Status: Active Protocol: Document 05/06/20 09:03 SP (Rec: 05/06/20 12:04 SP [id number]) Knee Goniometric Range of Motion Knee Right Knee ROM WFL No Patient Position Supine Flexion Active (degrees) 127 Extension Active (degrees) 1 Comments Did not assess PROM today. R foot propped up on 1/2 foam roll during measurement during ext. PT-OP-M Strength Start: 04/16/20 10:19 Freq: Status: Active Protocol: Document 04/16/20 12:45 AMB (Rec: 04/16/20 15:35 AMB [email or web address]) Knee Strength Knee Manual Muscle Testing Right Flexion (S2) 4 Good Extension (L3) 4- Good- Left Flexion (S2) 4+ Good+ Extension (L3) 4+ Good+ PT-OP-Q Treatments Start: 04/16/20 10:19 Freq: Status: Active Protocol: Document 05/20/20 12:17 SP (Rec: 05/20/20 13:01 SP [id number]) Cardio Equipment Bicycle (Upright) Duration (Minutes) 8 Resistance 10 Seat Position 7 Other 1.6 miles Gym Equipment Sport Cord resisted gait f/b/side stepping Exercise Details glut/ abductor facilitation Cord/Resistance green Reps/Duration 5 reps each direction - back/ side/fwd Comments cued slow pacing and SLS eccentric control. improved control in fwd walk Therapeutic Exercises Standing Exercises 7 Standing Exercise Name iso glut med with ball at wall Side right Equipment Used purple ball, contact chair Reps/Minutes 5 hold x 10 Comments cues for level pelvis and upright posture TKE Side right Resistance # 2 TB Equipment Used rail/ chair contact Reps/Minutes 2x15 Comments cued neutral hips, upright posture 6 Standing Exercise Name step up/ downs (forward facing ) Side bilateral Resistance hand rail on stance side with fingertip support Equipment Used 6 step Reps/Minutes 2x10 reps Comments focus hip extension for glute- dominant movement PT-OP-T Assessment and Plan Start: 04/16/20 10:19 Freq: Status: Active Protocol: Document 05/20/20 12:17 SP (Rec: 05/20/20 13:01 SP [id number]) Physical Therapy Assessment Goals Five Impairment Gait Short Term Goal (STG) Nevaeh will ambulate with a SPC/ walking stick for 6 minutes without antalgic gait. STG Duration 4 weeks Four Impairment ADLs Short Term Goal (STG) Nevaeh will ascend and descend a flight of stairs with one railing without an increase in baseline pain. STG Duration 4 weeks Receiving Clerk Goal (LTG) Pt will be able to return to gardening without difficulty LTG Duration 8 weeks Three Impairment ROM Short Term Goal (STG) Pt will have 0-120 deg AROM. 05/06/20: progressing 1-127 deg R knee AROM. STG Duration 4 weeks Two Impairment Strength Short Term Goal (STG) Nevaeh will be independent and consistent with her HEP. STG Duration 4 weeks Receiving Clerk Goal (LTG) Nevaeh will improve her LE strength so that she can stand from a standard height chair with little to no UE support. LTG Duration 8 weeks One Impairment Swelling Short Term Goal (STG) Nevaeh will decrease her swelling so that she does not have any pitting edema. STG Duration 4 weeks Assessment Summary Assessment Tx focused on core and glut stabilization during gait, step ups with cues for slow controlled pacing movements into hip ext, improved MICAH over COG single stance. Physical Therapy Plan Frequency and Duration Frequency of Treatment 2x/Week Duration of Treatment 10 weeks Plan of Care Start Date 04/16/20 Plan of Care End Date 06/25/20 Therapeutic Interventions Therapeutic Interventions Gait Training,Home Exercise Program,Manual Therapy, Neuromuscular Re-education, Self-Care/Home Management, Therapeutic Activities, Therapeutic Exercises Modalities Cold Pack/Ice Massage,Electric Stimulation Next Visit Focus/Plan Next Note Type Treatment Note Next Visit Plan TKE, resisted sport cord gait, step ups, gait in mirror with cuing for wt shift over stance leg with end range hip ext. Continue per PT POC: Progress balance exercises, gait quality, further strengthening and range.
--- NOTE | 2020-05-22 14:32 | PT.OTN ---
Current Diagnoses Unilateral primary osteoarthritis, right knee (05/22/20) Other abnormalities of gait and mobility (05/22/20) Physical Therapy Treatment Note PT-OP-A Visit Information Start: 04/16/20 10:19 Freq: Status: Active Protocol: Document 05/22/20 13:04 AW (Rec: 05/22/20 14:25 AW [id number]) Out-Patient Physical Therapy Visit Information Visit Information Visit Type Treatment Note Visit Start Time 13:00 Visit Stop Time 13:43 Total Visit Minutes 43 Visit Number 12 Number of SHIPPING AND RECEIVING MATERIAL HANDLER Visits 0 PT-OP-B Current Condition Start: 04/16/20 10:19 Freq: Status: Active Protocol: Document 04/16/20 12:44 AMB (Rec: 04/16/20 13:22 AMB [id number]) Current Condition History of Current Condition Onset Date 04/10/20 Current Complaints R TKA History of Current Condition 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 She is using a FWW currently. She lives with her daughter and son in law and does not need to do any stairs to get into her part of the house, although there are stairs to get into their house. She has a walk in shower and was able to shower yesterday with her daughter's supervision. She reports she is taking ibuprofen and tylenol for pain relief with one opiate medication at bed time. She had previously had a L TKA which she felt rehabed well. Treatment Goals Patient/Caregiver Goals Walking, previously without assistive device, gardening ( getting into kneeling and getting back up), walking on uneven surfaces. Prior Functional Status Baseline Function- ADL's Modified Independent Baseline Function- Mobility Modified Independent Baseline Function- Gait Community ambulator without AD , reports some difficulty with uneven terrain Current Functional Impairments (Reported) Functional Limitations- ADL's Using FWW for ambulation, needs UE for sit to stand Personal Factors Other Personal Factors That May Effect self reported memory deficits, Therapy/Recovery hx of lumbar surgery PT-OP-C Subjective Start: 04/16/20 10:19 Freq: Status: Active Protocol: Document 05/22/20 13:04 AW (Rec: 05/22/20 14:25 AW [id number]) OP-PT Subjective Patient Comments Patient Comments I was up and down the stairs five times yesterday with no problem. Patient Reported Progress Improving PT-OP-E Functional Tests Start: 04/16/20 15:35 Freq: Status: Active Protocol: Document 04/16/20 12:45 AMB (Rec: 04/16/20 15:36 AMB [email or web address]) Functional Tests Timed Up and Go (TUG) Score 23 Comments FWW management limited the most PT-OP-G Mobility & Gait Start: 04/16/20 10:19 Freq: Status: Active Protocol: Document 04/16/20 12:45 AMB (Rec: 04/16/20 15:35 AMB [email or web address]) OP Mobility Evaluation Transfers Sit to Stand requires UE support when moving from standard height chair OP Gait Assessment Comments Gait Comments Ambulating with FWW good step length, fairly slow with backing up with walker and with turns. PT-OP-J Posture/Palpation/Skin Start: 04/16/20 10:19 Freq: Status: Active Protocol: Document 04/16/20 12:45 AMB (Rec: 04/16/20 15:35 AMB [email or web address]) Skin Assessment Edema Assessment Right Leg Edema Type Pitting Edema Degree 3+ Comments 3+ at ankle, no pitting at knee, but swelling is present throughout, mild bruising at knee Circumference Measurement 2 Location L mid patella Measurement (Centimeters) 51 1 Location R mid patella Measurement (Centimeters) 44 Incisional Assessment Incision Appearance/Comments incision is covered, no redness noted in knee that is visible PT-OP-K Range of Motion Start: 04/16/20 10:19 Freq: Status: Active Protocol: Document 05/06/20 09:03 SP (Rec: 05/06/20 12:04 SP [id number]) Knee Goniometric Range of Motion Knee Right Knee ROM WFL No Patient Position Supine Flexion Active (degrees) 127 Extension Active (degrees) 1 Comments Did not assess PROM today. R foot propped up on 1/2 foam roll during measurement during ext. PT-OP-M Strength Start: 04/16/20 10:19 Freq: Status: Active Protocol: Document 04/16/20 12:45 AMB (Rec: 04/16/20 15:35 AMB [email or web address]) Knee Strength Knee Manual Muscle Testing Right Flexion (S2) 4 Good Extension (L3) 4- Good- Left Flexion (S2) 4+ Good+ Extension (L3) 4+ Good+ PT-OP-Q Treatments Start: 04/16/20 10:19 Freq: Status: Active Protocol: Document 05/22/20 13:04 AW (Rec: 05/22/20 13:48 AW [id number]) Cardio Equipment Bicycle (Upright) Duration (Minutes) 8 Resistance 11 Seat Position 7 Gym Equipment Sport Cord resisted gait f/b/side stepping Exercise Details glut/ abductor facilitation Cord/Resistance green Reps/Duration 5 reps each direction - back/ side/fwd Comments cued slow pacing and SLS eccentric control. improved control in fwd walk. most difficulty with side stepping Therapeutic Exercises Standing Exercises TKE Side right Resistance # 2 TB Equipment Used rail/ chair contact Reps/Minutes 2x15 Comments cued neutral hips, upright posture 6 Standing Exercise Name step up/ downs (forward facing ) Side bilateral Resistance hand rail on stance side with fingertip support Equipment Used 6 step Reps/Minutes 2x10 reps Comments focus hip extension for glute- dominant movement SLS Side bilateral Resistance heavy contact counter self support Equipment Used counter in front mirror Comments Cued upright posture, wt shift over stance leg, TA Manual Therapy Treatment Joint Mobilizations patellar glides Direction med/lat, sup/inf Grade II Body Position Supine Reps/Duration 3 min PT-OP-T Assessment and Plan Start: 04/16/20 10:19 Freq: Status: Active Protocol: Document 05/22/20 13:04 AW (Rec: 05/22/20 14:32 AW [id number]) Physical Therapy Assessment Goals Five Impairment Gait Short Term Goal (STG) Nevaeh will ambulate with a SPC/ walking stick for 6 minutes without antalgic gait. STG Duration 4 weeks Four Impairment ADLs Short Term Goal (STG) Neaveh will ascend and descend a flight of stairs with one railing without an increase in baseline pain. STG Duration 4 weeks Optical Coating Technician Goal (LTG) Pt will be able to return to gardening without difficulty LTG Duration 8 weeks Three Impairment ROM Short Term Goal (STG) Pt will have 0-120 deg AROM. 05/06/20: progressing 1-127 deg R knee AROM. STG Duration 4 weeks Two Impairment Strength Short Term Goal (STG) Nevaeh will be independent and consistent with her HEP. STG Duration 4 weeks Optical Coating Technician Goal (LTG) Nevaeh will improve her LE strength so that she can stand from a standard height chair with little to no UE support. LTG Duration 8 weeks One Impairment Swelling Short Term Goal (STG) Nevaeh will decrease her swelling so that she does not have any pitting edema. STG Duration 4 weeks Assessment Summary Assessment Continued focus on stabilization, glute engagement, and propulsion in gait. Edema has reduced to same measurement at mid- patella, 1 cm R>L 5 cm below and 2.5 cm R>L 5 cm above. Physical Therapy Plan Frequency and Duration Frequency of Treatment 2x/Week Duration of Treatment 10 weeks Plan of Care Start Date 04/16/20 Plan of Care End Date 06/25/20 Therapeutic Interventions Therapeutic Interventions Gait Training,Home Exercise Program,Manual Therapy, Neuromuscular Re-education, Self-Care/Home Management, Therapeutic Activities, Therapeutic Exercises Modalities Cold Pack/Ice Massage,Electric Stimulation Next Visit Focus/Plan Next Note Type Treatment Note Next Visit Plan TKE, resisted sport cord gait, step ups, gait in mirror with cuing for wt shift over stance leg with end range hip ext. Continue per PT POC: Progress balance exercises, gait quality, further strengthening and range.
--- NOTE | 2020-05-27 13:00 | PT.OTN ---
Current Diagnoses Unilateral primary osteoarthritis, right knee (05/27/20) Other abnormalities of gait and mobility (05/27/20) Physical Therapy Treatment Note PT-OP-A Visit Information Start: 04/16/20 10:19 Freq: Status: Active Protocol: Document 05/27/20 12:16 SP (Rec: 05/27/20 14:04 SP [id number]) Out-Patient Physical Therapy Visit Information Visit Information Visit Type Treatment Note Visit Start Time 12:16 Visit Stop Time 13:00 Total Visit Minutes 44 Visit Number 13 Number of CLINICAL CARE MANAGER Visits 1 PT-OP-B Current Condition Start: 04/16/20 10:19 Freq: Status: Active Protocol: Document 04/16/20 12:44 AMB (Rec: 04/16/20 13:22 AMB [id number]) Current Condition History of Current Condition Onset Date 04/10/20 Current Complaints R TKA History of Current Condition 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 She is using a FWW currently. She lives with her daughter and son in law and does not need to do any stairs to get into her part of the house, although there are stairs to get into their house. She has a walk in shower and was able to shower yesterday with her daughter's supervision. She reports she is taking ibuprofen and tylenol for pain relief with one opiate medication at bed time. She had previously had a L TKA which she felt rehabed well. Treatment Goals Patient/Caregiver Goals Walking, previously without assistive device, gardening ( getting into kneeling and getting back up), walking on uneven surfaces. Prior Functional Status Baseline Function- ADL's Modified Independent Baseline Function- Mobility Modified Independent Baseline Function- Gait Community ambulator without AD , reports some difficulty with uneven terrain Current Functional Impairments (Reported) Functional Limitations- ADL's Using FWW for ambulation, needs UE for sit to stand Personal Factors Other Personal Factors That May Effect self reported memory deficits, Therapy/Recovery hx of lumbar surgery PT-OP-C Subjective Start: 04/16/20 10:19 Freq: Status: Active Protocol: Document 05/27/20 12:16 SP (Rec: 05/27/20 14:04 SP [id number]) OP-PT Subjective Patient Comments Patient Comments I feel like am doing pretty good, probably not doing my exercises as much as should be . Patient Reported Progress Improving PT-OP-E Functional Tests Start: 04/16/20 15:35 Freq: Status: Active Protocol: Document 04/16/20 12:45 AMB (Rec: 04/16/20 15:36 AMB [email or web address]) Functional Tests Timed Up and Go (TUG) Score 23 Comments FWW management limited the most PT-OP-G Mobility & Gait Start: 04/16/20 10:19 Freq: Status: Active Protocol: Document 04/16/20 12:45 AMB (Rec: 04/16/20 15:35 AMB [email or web address]) OP Mobility Evaluation Transfers Sit to Stand requires UE support when moving from standard height chair OP Gait Assessment Comments Gait Comments Ambulating with FWW good step length, fairly slow with backing up with walker and with turns. PT-OP-J Posture/Palpation/Skin Start: 04/16/20 10:19 Freq: Status: Active Protocol: Document 04/16/20 12:45 AMB (Rec: 04/16/20 15:35 AMB [email or web address]) Skin Assessment Edema Assessment Right Leg Edema Type Pitting Edema Degree 3+ Comments 3+ at ankle, no pitting at knee, but swelling is present throughout, mild bruising at knee Circumference Measurement 2 Location L mid patella Measurement (Centimeters) 51 1 Location R mid patella Measurement (Centimeters) 44 Incisional Assessment Incision Appearance/Comments incision is covered, no redness noted in knee that is visible PT-OP-K Range of Motion Start: 04/16/20 10:19 Freq: Status: Active Protocol: Document 05/06/20 09:03 SP (Rec: 05/06/20 12:04 SP [id number]) Knee Goniometric Range of Motion Knee Right Knee ROM WFL No Patient Position Supine Flexion Active (degrees) 127 Extension Active (degrees) 1 Comments Did not assess PROM today. R foot propped up on 1/2 foam roll during measurement during ext. PT-OP-M Strength Start: 04/16/20 10:19 Freq: Status: Active Protocol: Document 04/16/20 12:45 AMB (Rec: 04/16/20 15:35 AMB [email or web address]) Knee Strength Knee Manual Muscle Testing Right Flexion (S2) 4 Good Extension (L3) 4- Good- Left Flexion (S2) 4+ Good+ Extension (L3) 4+ Good+ PT-OP-Q Treatments Start: 04/16/20 10:19 Freq: Status: Active Protocol: Document 05/27/20 12:16 SP (Rec: 05/27/20 14:04 SP [id number]) Cardio Equipment Bicycle (Upright) Duration (Minutes) 8 Resistance 11 Seat Position 7 Other 1.5miles Gym Equipment Shuttle Balance red clips Details WBOS, NBOS, stagger Reps/Duration 8 Comments EO 1. wt shift 2. head turn as sumaya Therapeutic Exercises Standing Exercises TKE Side right Resistance # 2 TB Equipment Used rail/ chair contact Reps/Minutes 2x15 Comments cued neutral hips, upright posture 6 Standing Exercise Name repeated step up (forward facing) Side bilateral Resistance hand rail on stance side with fingertip support Equipment Used 6 step Reps/Minutes 2x10 reps Comments focus on hip and knee ext glut facilitation, knee with/ behind toes SLS Side bilateral Resistance improved decrease heavy self support on counter top Equipment Used counter in front mirror Reps/Minutes 6 sec R LE, 4 sec LLE Comments Cued upright posture, wt shift over stance leg, glut & TA Gait Training Gait Activity level surface Description fwd/ bwd Device Used none Level of Assistance SBA Surface floor Distance/Duration mirror Treatment Focus equil BLE, COG over MICAH Comments cued glut, hip ext COG over MICAH, Next tx review Metronome set to 95 bpm used as external cue for stance time. Past tx: pt tends to revert to decreased RLE stance time over time but is able to maintain more equal WB ~10 seconds at a time. PT-OP-T Assessment and Plan Start: 04/16/20 10:19 Freq: Status: Active Protocol: Document 05/27/20 12:16 SP (Rec: 05/27/20 14:04 SP [id number]) Physical Therapy Assessment Goals Five Impairment Gait Short Term Goal (STG) Nevaeh will ambulate with a SPC/ walking stick for 6 minutes without antalgic gait. STG Duration 4 weeks Four Impairment ADLs Short Term Goal (STG) Nevaeh will ascend and descend a flight of stairs with one railing without an increase in baseline pain. STG Duration 4 weeks Mcc Goal (LTG) Pt will be able to return to gardening without difficulty LTG Duration 8 weeks Three Impairment ROM Short Term Goal (STG) Pt will have 0-120 deg AROM. 05/06/20: progressing 1-127 deg R knee AROM. STG Duration 4 weeks Two Impairment Strength Short Term Goal (STG) Nevaeh will be independent and consistent with her HEP. STG Duration 4 weeks Mcc Goal (LTG) Nevaeh will improve her LE strength so that she can stand from a standard height chair with little to no UE support. LTG Duration 8 weeks One Impairment Swelling Short Term Goal (STG) Nevaeh will decrease her swelling so that she does not have any pitting edema. STG Duration 4 weeks Assessment Summary Assessment Tx focused on single stance w/ glut facilitation throughout tx, more challenging on LLE than RLE with ability to gain 3-6 sec stance time w/ cuing for COG over MICAH, space between LE, upright posture and glut/ hip ext support. Physical Therapy Plan Frequency and Duration Frequency of Treatment 2x/Week Duration of Treatment 10 weeks Plan of Care Start Date 04/16/20 Plan of Care End Date 06/25/20 Therapeutic Interventions Therapeutic Interventions Gait Training,Home Exercise Program,Manual Therapy, Neuromuscular Re-education, Self-Care/Home Management, Therapeutic Activities, Therapeutic Exercises Modalities Cold Pack/Ice Massage,Electric Stimulation Next Visit Focus/Plan Next Note Type Treatment Note Next Visit Plan Assess response to gait, glut strengthening: TKE, step ups, gait in mirror with cuing for wt shift over stance leg with end range hip ext. Next tx continue sport cord didn't get to las tx. Continue per PT POC: Progress balance exercises, gait quality, further strengthening and range.
--- NOTE | 2020-05-29 13:07 | PT.OTN ---
Current Diagnoses Unilateral primary osteoarthritis, right knee (05/29/20) Other abnormalities of gait and mobility (05/29/20) Physical Therapy Treatment Note PT-OP-A Visit Information Start: 04/16/20 10:19 Freq: Status: Active Protocol: Document 05/29/20 12:54 MA (Rec: 05/29/20 13:07 MA [email or web address]) Out-Patient Physical Therapy Visit Information Visit Information Visit Type Treatment Note Visit Start Time 11:00 Visit Stop Time 11:43 Total Visit Minutes 43 Visit Number 14 Number of COMMUNITY RELATIONS DIRECTOR Visits 2 PT-OP-B Current Condition Start: 04/16/20 10:19 Freq: Status: Active Protocol: Document 04/16/20 12:44 AMB (Rec: 04/16/20 13:22 AMB [id number]) Current Condition History of Current Condition Onset Date 04/10/20 Current Complaints R TKA History of Current Condition 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 She is using a FWW currently. She lives with her daughter and son in law and does not need to do any stairs to get into her part of the house, although there are stairs to get into their house. She has a walk in shower and was able to shower yesterday with her daughter's supervision. She reports she is taking ibuprofen and tylenol for pain relief with one opiate medication at bed time. She had previously had a L TKA which she felt rehabed well. Treatment Goals Patient/Caregiver Goals Walking, previously without assistive device, gardening ( getting into kneeling and getting back up), walking on uneven surfaces. Prior Functional Status Baseline Function- ADL's Modified Independent Baseline Function- Mobility Modified Independent Baseline Function- Gait Community ambulator without AD , reports some difficulty with uneven terrain Current Functional Impairments (Reported) Functional Limitations- ADL's Using FWW for ambulation, needs UE for sit to stand Personal Factors Other Personal Factors That May Effect self reported memory deficits, Therapy/Recovery hx of lumbar surgery PT-OP-C Subjective Start: 04/16/20 10:19 Freq: Status: Active Protocol: Document 05/29/20 12:54 MA (Rec: 05/29/20 13:07 MA [email or web address]) OP-PT Subjective Patient Comments Patient Comments I put straps on my bike at home so my feet stay on the peddles Patient Reported Progress Improving PT-OP-E Functional Tests Start: 04/16/20 15:35 Freq: Status: Active Protocol: Document 04/16/20 12:45 AMB (Rec: 04/16/20 15:36 AMB [email or web address]) Functional Tests Timed Up and Go (TUG) Score 23 Comments FWW management limited the most PT-OP-G Mobility & Gait Start: 04/16/20 10:19 Freq: Status: Active Protocol: Document 04/16/20 12:45 AMB (Rec: 04/16/20 15:35 AMB [email or web address]) OP Mobility Evaluation Transfers Sit to Stand requires UE support when moving from standard height chair OP Gait Assessment Comments Gait Comments Ambulating with FWW good step length, fairly slow with backing up with walker and with turns. PT-OP-J Posture/Palpation/Skin Start: 04/16/20 10:19 Freq: Status: Active Protocol: Document 04/16/20 12:45 AMB (Rec: 04/16/20 15:35 AMB [email or web address]) Skin Assessment Edema Assessment Right Leg Edema Type Pitting Edema Degree 3+ Comments 3+ at ankle, no pitting at knee, but swelling is present throughout, mild bruising at knee Circumference Measurement 2 Location L mid patella Measurement (Centimeters) 51 1 Location R mid patella Measurement (Centimeters) 44 Incisional Assessment Incision Appearance/Comments incision is covered, no redness noted in knee that is visible PT-OP-K Range of Motion Start: 04/16/20 10:19 Freq: Status: Active Protocol: Document 05/06/20 09:03 SP (Rec: 05/06/20 12:04 SP [id number]) Knee Goniometric Range of Motion Knee Right Knee ROM WFL No Patient Position Supine Flexion Active (degrees) 127 Extension Active (degrees) 1 Comments Did not assess PROM today. R foot propped up on 1/2 foam roll during measurement during ext. PT-OP-M Strength Start: 04/16/20 10:19 Freq: Status: Active Protocol: Document 04/16/20 12:45 AMB (Rec: 04/16/20 15:35 AMB [email or web address]) Knee Strength Knee Manual Muscle Testing Right Flexion (S2) 4 Good Extension (L3) 4- Good- Left Flexion (S2) 4+ Good+ Extension (L3) 4+ Good+ PT-OP-Q Treatments Start: 04/16/20 10:19 Freq: Status: Active Protocol: Document 05/29/20 12:54 MA (Rec: 05/29/20 13:07 MA [email or web address]) Cardio Equipment Bicycle (Upright) Duration (Minutes) 8 Resistance 9 Seat Position 7 Other stated 11 feels too hard today Gym Equipment Shuttle Balance red clips Details WBOS, NBOS, stagger Reps/Duration 8 Comments EO/EC Sport Cord resisted gait f/b/side stepping Exercise Details glut/ abductor facilitation Cord/Resistance green Reps/Duration 4 reps each direction - back/ side/fwd Comments cued slow pacing and SLS eccentric control. Therapeutic Exercises Standing Exercises TKE Side right Resistance # 2 TB Equipment Used rail/ chair contact Reps/Minutes 2x15 Comments cued neutral hips, upright posture SLS Side bilateral Resistance improved decrease heavy self support on counter top Equipment Used stair rail in front of mirror Reps/Minutes 6 sec R LE, 4 sec LLE Comments Cued upright posture, wt shift over stance leg, glut & TA step down Standing Exercise Name Lateral step down/up Side bilateral Equipment Used 4 inch step Reps/Minutes 2x10 Comments toe tap to ground, working on less hand held support and full R knee ext Gait Training Gait Activity level surface Description fwd/ bwd Device Used none Level of Assistance SBA Surface floor Distance/Duration mirror Treatment Focus equil BLE, COG over MICAH Comments cued glut, hip ext COG over MICAH, equal stance time PT-OP-T Assessment and Plan Start: 04/16/20 10:19 Freq: Status: Active Protocol: Document 05/29/20 12:54 MA (Rec: 05/29/20 13:07 MA [email or web address]) Physical Therapy Assessment Assessment Summary Assessment Decreased resistance on bike due to pt stating 11 feels harder than usual today. Lateral step ups focusing on full knee extension on RLE and single hand support on bar. Cues for increased stride length when stepping backwards with green sport cord-pt tends to step back with RLE and step-to with LLE due to decreased stance time on RLE. Physical Therapy Plan Frequency and Duration Frequency of Treatment 2x/Week Duration of Treatment 10 weeks Plan of Care Start Date 04/16/20 Plan of Care End Date 06/25/20 Therapeutic Interventions Therapeutic Interventions Gait Training,Home Exercise Program,Manual Therapy, Neuromuscular Re-education, Self-Care/Home Management, Therapeutic Activities, Therapeutic Exercises Modalities Cold Pack/Ice Massage,Electric Stimulation Next Visit Focus/Plan Next Note Type Treatment Note Next Visit Plan TKE, step ups, gait and sport cord. Progress balance exercises and strengthening exercises for full extension
--- NOTE | 2020-06-04 17:30 | PT.OTN ---
Current Diagnoses Unilateral primary osteoarthritis, right knee (06/04/20) Other abnormalities of gait and mobility (06/04/20) Physical Therapy Treatment Note PT-OP-A Visit Information Start: 04/16/20 10:19 Freq: Status: Active Protocol: Document 06/04/20 10:41 [facility] (Rec: 06/04/20 11:22 [facility] [id number]) Out-Patient Physical Therapy Visit Information Visit Information Visit Type Treatment Note Visit Start Time 10:35 Visit Stop Time 11:15 Total Visit Minutes 40 Visit Number [address] TECHNICIAN Visits 0 PT-OP-B Current Condition Start: 04/16/20 10:19 Freq: Status: Active Protocol: Document 04/16/20 12:44 AMB (Rec: 04/16/20 13:22 AMB [id number]) Current Condition History of Current Condition Onset Date 04/10/20 Current Complaints R TKA History of Current Condition 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 She is using a FWW currently. She lives with her daughter and son in law and does not need to do any stairs to get into her part of the house, although there are stairs to get into their house. She has a walk in shower and was able to shower yesterday with her daughter's supervision. She reports she is taking ibuprofen and tylenol for pain relief with one opiate medication at bed time. She had previously had a L TKA which she felt rehabed well. Treatment Goals Patient/Caregiver Goals Walking, previously without assistive device, gardening ( getting into kneeling and getting back up), walking on uneven surfaces. Prior Functional Status Baseline Function- ADL's Modified Independent Baseline Function- Mobility Modified Independent Baseline Function- Gait Community ambulator without AD , reports some difficulty with uneven terrain Current Functional Impairments (Reported) Functional Limitations- ADL's Using FWW for ambulation, needs UE for sit to stand Personal Factors Other Personal Factors That May Effect self reported memory deficits, Therapy/Recovery hx of lumbar surgery PT-OP-C Subjective Start: 04/16/20 10:19 Freq: Status: Active Protocol: Document 06/04/20 10:41 [facility] (Rec: 06/04/20 11:22 [facility] [id number]) OP-PT Subjective Patient Comments Patient Comments pt reports she is doing well, she did have a little trouble getting off the floor yesterday Patient Reported Progress Improving PT-OP-E Functional Tests Start: 04/16/20 15:35 Freq: Status: Active Protocol: Document 04/16/20 12:45 AMB (Rec: 04/16/20 15:36 AMB [email or web address]) Functional Tests Timed Up and Go (TUG) Score 23 Comments FWW management limited the most PT-OP-G Mobility & Gait Start: 04/16/20 10:19 Freq: Status: Active Protocol: Document 04/16/20 12:45 AMB (Rec: 04/16/20 15:35 AMB [email or web address]) OP Mobility Evaluation Transfers Sit to Stand requires UE support when moving from standard height chair OP Gait Assessment Comments Gait Comments Ambulating with FWW good step length, fairly slow with backing up with walker and with turns. PT-OP-J Posture/Palpation/Skin Start: 04/16/20 10:19 Freq: Status: Active Protocol: Document 04/16/20 12:45 AMB (Rec: 04/16/20 15:35 AMB [email or web address]) Skin Assessment Edema Assessment Right Leg Edema Type Pitting Edema Degree 3+ Comments 3+ at ankle, no pitting at knee, but swelling is present throughout, mild bruising at knee Circumference Measurement 2 Location L mid patella Measurement (Centimeters) 51 1 Location R mid patella Measurement (Centimeters) 44 Incisional Assessment Incision Appearance/Comments incision is covered, no redness noted in knee that is visible PT-OP-K Range of Motion Start: 04/16/20 10:19 Freq: Status: Active Protocol: Document 05/06/20 09:03 SP (Rec: 05/06/20 12:04 SP [id number]) Knee Goniometric Range of Motion Knee Right Knee ROM WFL No Patient Position Supine Flexion Active (degrees) 127 Extension Active (degrees) 1 Comments Did not assess PROM today. R foot propped up on 1/2 foam roll during measurement during ext. PT-OP-M Strength Start: 04/16/20 10:19 Freq: Status: Active Protocol: Document 04/16/20 12:45 AMB (Rec: 04/16/20 15:35 AMB [email or web address]) Knee Strength Knee Manual Muscle Testing Right Flexion (S2) 4 Good Extension (L3) 4- Good- Left Flexion (S2) 4+ Good+ Extension (L3) 4+ Good+ PT-OP-Q Treatments Start: 04/16/20 10:19 Freq: Status: Active Protocol: Document 06/04/20 10:41 [facility] (Rec: 06/04/20 11:22 [facility] [id number]) Gym Equipment Shuttle Recovery Unilateral Squats Details focus on extension and med/ lat alignment Resistance 25 Shuttle Recovery Platform Stable Reps/Time x10 Bilateral Heel Raises Details 50# Reps/Time 20 reps, ball between knees Bilateral Squats Details knee alignment Resistance 75# Reps/Time 3x10 Shuttle Balance red clips Details WBOS, NBOS, stagger Reps/Duration 8 Comments EO/EC Blue chains Details WBOS, NBOS, stagger (hands hover rail) Reps/Duration 3 min total Comments red chains, head turns Sport Cord resisted gait f/b/side stepping Exercise Details glut/ abductor facilitation Cord/Resistance green Reps/Duration 4 reps each direction - back/ side/fwd Comments cued slow pacing and SLS eccentric control. Therapeutic Exercises Sidelying Exercises clam shells Reps/Minutes 3 x 10 reps Comments needed cues to keep the pelvic forward Sitting Exercises calf stretch Sitting Exercise Name calf stretch Side right Equipment Used strap Reps/Minutes 30x3 Standing Exercises step ups on 4 step Standing Exercise Name step ups on 4 step Reps/Minutes 2x 10 reps step down Standing Exercise Name Lateral step down/up Side bilateral Equipment Used 4 inch step Reps/Minutes 2x10 Comments toe tap to ground, working on less hand held support and full R knee ext Manual Therapy Treatment Soft Tissue Mobilization edema reduction massage Body Location edema reduction massage Body Position supine with leg elevated Comments pt educated on frequent walking throughout the day to decrease right LE swelling, wearing compression stockings, pool water walking PT-OP-T Assessment and Plan Start: 04/16/20 10:19 Freq: Status: Active Protocol: Document 06/04/20 17:29 [facility] (Rec: 06/04/20 17:30 [facility] [email or web address]) Physical Therapy Assessment Assessment Summary Assessment Good endurance for ther ex today, worked on forward and lateral squats, balance, and strengthening. I also worked on calf flexibility and edema reduction. Physical Therapy Plan Frequency and Duration Frequency of Treatment 2x/Week Duration of Treatment 10 weeks Plan of Care Start Date 04/16/20 Plan of Care End Date 06/25/20 Next Visit Focus/Plan Next Note Type Treatment Note Next Visit Plan TKE, step ups, gait and sport cord. Progress balance exercises and strengthening exercises for full extension
--- NOTE | 2020-06-06 13:08 | PT.OTN ---
Current Diagnoses Unilateral primary osteoarthritis, right knee (06/06/20) Other abnormalities of gait and mobility (06/06/20) Physical Therapy Treatment Note PT-OP-A Visit Information Start: 04/16/20 10:19 Freq: Status: Active Protocol: Document 06/06/20 11:25 [facility] (Rec: 06/06/20 11:26 [facility] [email or web address]) Out-Patient Physical Therapy Visit Information Visit Information Visit Type Treatment Note Visit Start Time 11:20 Visit Stop Time 12:10 Total Visit Minutes 50 Visit Number 16 Number of INTERNATIONAL STUDENT COUNSELOR Visits 0 PT-OP-B Current Condition Start: 04/16/20 10:19 Freq: Status: Active Protocol: Document 04/16/20 12:44 AMB (Rec: 04/16/20 13:22 AMB [id number]) Current Condition History of Current Condition Onset Date 04/10/20 Current Complaints R TKA History of Current Condition 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 She is using a FWW currently. She lives with her daughter and son in law and does not need to do any stairs to get into her part of the house, although there are stairs to get into their house. She has a walk in shower and was able to shower yesterday with her daughter's supervision. She reports she is taking ibuprofen and tylenol for pain relief with one opiate medication at bed time. She had previously had a L TKA which she felt rehabed well. Treatment Goals Patient/Caregiver Goals Walking, previously without assistive device, gardening ( getting into kneeling and getting back up), walking on uneven surfaces. Prior Functional Status Baseline Function- ADL's Modified Independent Baseline Function- Mobility Modified Independent Baseline Function- Gait Community ambulator without AD , reports some difficulty with uneven terrain Current Functional Impairments (Reported) Functional Limitations- ADL's Using FWW for ambulation, needs UE for sit to stand Personal Factors Other Personal Factors That May Effect self reported memory deficits, Therapy/Recovery hx of lumbar surgery PT-OP-C Subjective Start: 04/16/20 10:19 Freq: Status: Active Protocol: Document 06/06/20 11:25 [facility] (Rec: 06/06/20 11:26 [facility] [email or web address]) OP-PT Subjective Patient Comments Patient Comments Nevaeh reports she did well last visit, she was a little sore in her right quad. She has been trying to elevate her leg. Patient Reported Progress Improving PT-OP-E Functional Tests Start: 04/16/20 15:35 Freq: Status: Active Protocol: Document 04/16/20 12:45 AMB (Rec: 04/16/20 15:36 AMB [email or web address]) Functional Tests Timed Up and Go (TUG) Score 23 Comments FWW management limited the most PT-OP-G Mobility & Gait Start: 04/16/20 10:19 Freq: Status: Active Protocol: Document 04/16/20 12:45 AMB (Rec: 04/16/20 15:35 AMB [email or web address]) OP Mobility Evaluation Transfers Sit to Stand requires UE support when moving from standard height chair OP Gait Assessment Comments Gait Comments Ambulating with FWW good step length, fairly slow with backing up with walker and with turns. PT-OP-J Posture/Palpation/Skin Start: 04/16/20 10:19 Freq: Status: Active Protocol: Document 04/16/20 12:45 AMB (Rec: 04/16/20 15:35 AMB [email or web address]) Skin Assessment Edema Assessment Right Leg Edema Type Pitting Edema Degree 3+ Comments 3+ at ankle, no pitting at knee, but swelling is present throughout, mild bruising at knee Circumference Measurement 2 Location L mid patella Measurement (Centimeters) 51 1 Location R mid patella Measurement (Centimeters) 44 Incisional Assessment Incision Appearance/Comments incision is covered, no redness noted in knee that is visible PT-OP-K Range of Motion Start: 04/16/20 10:19 Freq: Status: Active Protocol: Document 05/06/20 09:03 SP (Rec: 05/06/20 12:04 SP [id number]) Knee Goniometric Range of Motion Knee Right Knee ROM WFL No Patient Position Supine Flexion Active (degrees) 127 Extension Active (degrees) 1 Comments Did not assess PROM today. R foot propped up on 1/2 foam roll during measurement during ext. PT-OP-M Strength Start: 04/16/20 10:19 Freq: Status: Active Protocol: Document 04/16/20 12:45 AMB (Rec: 04/16/20 15:35 AMB [email or web address]) Knee Strength Knee Manual Muscle Testing Right Flexion (S2) 4 Good Extension (L3) 4- Good- Left Flexion (S2) 4+ Good+ Extension (L3) 4+ Good+ PT-OP-Q Treatments Start: 04/16/20 10:19 Freq: Status: Active Protocol: Document 06/06/20 13:02 [facility] (Rec: 06/06/20 13:06 [facility] [email or web address]) Gym Equipment Cable Column (Body Solid) Hip Abduction Resistance 20# Reps/Time 2x10 Leg Extension Details leg extension Resistance 30# Reps/Time 2x10 Leg Curl Details hamstring curl Resistance 30# Reps/Time 3 x 10 Shuttle Recovery Unilateral Squats Details focus on extension and med/ lat alignment Resistance 25 Shuttle Recovery Platform Stable Reps/Time x10 Bilateral Heel Raises Details 50# Reps/Time 20 reps, ball between knees Bilateral Squats Details knee alignment Resistance 75# Reps/Time 3x10 Shuttle Balance red clips Details WBOS, NBOS, stagger Reps/Duration 8 Comments EO/EC Therapeutic Exercises Sitting Exercises quad stretch with the ball Sitting Exercise Name quad stretch with the ball Comments in standing calf stretch Sitting Exercise Name calf stretch Side right Equipment Used strap Reps/Minutes 30x3 PT-OP-R Modalities Start: 04/16/20 10:19 Freq: Status: Active Protocol: Document 06/06/20 13:07 [facility] (Rec: 06/06/20 13:08 [facility] [email or web address]) Hot Pack/Cold Pack Treatment Cold Pack Location right knee Patient Position Hooklying Treatment Duration (minutes) 10 Patient Tolerance Good PT-OP-T Assessment and Plan Start: 04/16/20 10:19 Freq: Status: Active Protocol: Document 06/06/20 11:26 [facility] (Rec: 06/06/20 11:27 [facility] [email or web address]) Physical Therapy Assessment Assessment Summary Assessment Nevaeh is demonstrating good tolerance for ther ex. I added in standing quad stretch using a ball today and she tolerated this well. We started back up hip abduction, leg extension and hamstring curls as well Physical Therapy Plan Frequency and Duration Frequency of Treatment 2x/Week Duration of Treatment 10 weeks Plan of Care Start Date 04/16/20 Plan of Care End Date 06/25/20 Therapeutic Interventions Therapeutic Interventions Gait Training,Home Exercise Program,Manual Therapy, Neuromuscular Re-education, Self-Care/Home Management, Therapeutic Activities, Therapeutic Exercises Modalities Cold Pack/Ice Massage,Electric Stimulation Next Visit Focus/Plan Next Note Type Treatment Note Next Visit Plan TKE, step ups, gait and sport cord. Progress balance exercises and strengthening exercises for full extension
--- NOTE | 2020-06-11 12:02 | PT.OTN ---
Current Diagnoses Unilateral primary osteoarthritis, right knee (06/11/20) Other abnormalities of gait and mobility (06/11/20) Physical Therapy Treatment Note PT-OP-A Visit Information Start: 04/16/20 10:19 Freq: Status: Active Protocol: Document 06/11/20 11:52 [facility] (Rec: 06/11/20 12:02 [facility] [id number]) Out-Patient Physical Therapy Visit Information Visit Information Visit Type Treatment Note Visit Start Time 11:15 Visit Stop Time 12:00 Total Visit Minutes 45 Visit Number 17 PT-OP-B Current Condition Start: 04/16/20 10:19 Freq: Status: Active Protocol: Document 04/16/20 12:44 AMB (Rec: 04/16/20 13:22 AMB [id number]) Current Condition History of Current Condition Onset Date 04/10/20 Current Complaints R TKA History of Current Condition 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 She is using a FWW currently. She lives with her daughter and son in law and does not need to do any stairs to get into her part of the house, although there are stairs to get into their house. She has a walk in shower and was able to shower yesterday with her daughter's supervision. She reports she is taking ibuprofen and tylenol for pain relief with one opiate medication at bed time. She had previously had a L TKA which she felt rehabed well. Treatment Goals Patient/Caregiver Goals Walking, previously without assistive device, gardening ( getting into kneeling and getting back up), walking on uneven surfaces. Prior Functional Status Baseline Function- ADL's Modified Independent Baseline Function- Mobility Modified Independent Baseline Function- Gait Community ambulator without AD , reports some difficulty with uneven terrain Current Functional Impairments (Reported) Functional Limitations- ADL's Using FWW for ambulation, needs UE for sit to stand Personal Factors Other Personal Factors That May Effect self reported memory deficits, Therapy/Recovery hx of lumbar surgery PT-OP-C Subjective Start: 04/16/20 10:19 Freq: Status: Active Protocol: Document 06/11/20 11:52 [facility] (Rec: 06/11/20 12:02 [facility] [id number]) OP-PT Subjective Patient Comments Patient Comments Nevaeh reports she hasn't been out walking due to the weather. She has no new complaints PT-OP-E Functional Tests Start: 04/16/20 15:35 Freq: Status: Active Protocol: Document 04/16/20 12:45 AMB (Rec: 04/16/20 15:36 AMB [email or web address]) Functional Tests Timed Up and Go (TUG) Score 23 Comments FWW management limited the most PT-OP-G Mobility & Gait Start: 04/16/20 10:19 Freq: Status: Active Protocol: Document 04/16/20 12:45 AMB (Rec: 04/16/20 15:35 AMB [email or web address]) OP Mobility Evaluation Transfers Sit to Stand requires UE support when moving from standard height chair OP Gait Assessment Comments Gait Comments Ambulating with FWW good step length, fairly slow with backing up with walker and with turns. PT-OP-J Posture/Palpation/Skin Start: 04/16/20 10:19 Freq: Status: Active Protocol: Document 04/16/20 12:45 AMB (Rec: 04/16/20 15:35 AMB [email or web address]) Skin Assessment Edema Assessment Right Leg Edema Type Pitting Edema Degree 3+ Comments 3+ at ankle, no pitting at knee, but swelling is present throughout, mild bruising at knee Circumference Measurement 2 Location L mid patella Measurement (Centimeters) 51 1 Location R mid patella Measurement (Centimeters) 44 Incisional Assessment Incision Appearance/Comments incision is covered, no redness noted in knee that is visible PT-OP-K Range of Motion Start: 04/16/20 10:19 Freq: Status: Active Protocol: Document 05/06/20 09:03 SP (Rec: 05/06/20 12:04 SP [id number]) Knee Goniometric Range of Motion Knee Right Knee ROM WFL No Patient Position Supine Flexion Active (degrees) 127 Extension Active (degrees) 1 Comments Did not assess PROM today. R foot propped up on 1/2 foam roll during measurement during ext. PT-OP-M Strength Start: 04/16/20 10:19 Freq: Status: Active Protocol: Document 04/16/20 12:45 AMB (Rec: 04/16/20 15:35 AMB [email or web address]) Knee Strength Knee Manual Muscle Testing Right Flexion (S2) 4 Good Extension (L3) 4- Good- Left Flexion (S2) 4+ Good+ Extension (L3) 4+ Good+ PT-OP-Q Treatments Start: 04/16/20 10:19 Freq: Status: Active Protocol: Document 06/11/20 11:52 [facility] (Rec: 06/11/20 12:02 [facility] [id number]) Gym Equipment Cable Column (Body Solid) Hip Abduction Resistance 20# Reps/Time 2x10 Leg Extension Details leg extension Resistance 30# Reps/Time 2x10 Leg Curl Details hamstring curl Resistance 40# Reps/Time 3 x 10 Shuttle Recovery Unilateral Squats Details focus on extension and med/ lat alignment Resistance 25 Shuttle Recovery Platform Stable Reps/Time x10 Bilateral Heel Raises Details 50# Reps/Time 20 reps, ball between knees Bilateral Squats Details knee alignment Resistance 75# Reps/Time 3x10 Therapeutic Exercises Sitting Exercises quad stretch with the ball Sitting Exercise Name quad stretch with the ball Comments in standing calf stretch Sitting Exercise Name calf stretch Side right Equipment Used strap Reps/Minutes 30x3 PT-OP-R Modalities Start: 04/16/20 10:19 Freq: Status: Active Protocol: Document 06/06/20 13:07 [facility] (Rec: 06/06/20 13:08 [facility] [email or web address]) Hot Pack/Cold Pack Treatment Cold Pack Location right knee Patient Position Hooklying Treatment Duration (minutes) 10 Patient Tolerance Good PT-OP-T Assessment and Plan Start: 04/16/20 10:19 Freq: Status: Active Protocol: Document 06/11/20 11:52 [facility] (Rec: 06/11/20 12:02 [facility] [id number]) Physical Therapy Assessment Assessment Summary Assessment Able to increase to 40 # on her hamstrings today. Still a little swelling right LE so Ice was applied following treatment today Physical Therapy Plan Frequency and Duration Frequency of Treatment 2x/Week Duration of Treatment 10 weeks Plan of Care Start Date 04/16/20 Plan of Care End Date 06/25/20 Therapeutic Interventions Therapeutic Interventions Gait Training,Home Exercise Program,Manual Therapy, Neuromuscular Re-education, Self-Care/Home Management, Therapeutic Activities, Therapeutic Exercises Modalities Cold Pack/Ice Massage,Electric Stimulation Hold Physical Therapy Reason For Hold Hold PT as patient still has at least three weeks until she can schedule surgery due to her infection in her toe. She may end up needing to be discharged prior to her surgery due to the length of time inbetween. Discharge Physical Therapy Discharge Reasons Change in Medical Status Next Visit Focus/Plan Next Note Type Treatment Note Next Visit Plan TKE, step ups, gait and sport cord. Progress balance exercises and strengthening exercises for full extension
--- NOTE | 2020-06-13 12:01 | PT.OTN ---
Current Diagnoses Unilateral primary osteoarthritis, right knee (06/13/20) Other abnormalities of gait and mobility (06/13/20) Physical Therapy Treatment Note PT-OP-A Visit Information Start: 04/16/20 10:19 Freq: Status: Active Protocol: Document 06/13/20 11:44 [facility] (Rec: 06/13/20 11:58 [facility] [id number]) Out-Patient Physical Therapy Visit Information Visit Information Visit Type Treatment Note Visit Start Time 11:15 Visit Stop Time 12:00 Total Visit Minutes 45 Visit Number 18 PT-OP-B Current Condition Start: 04/16/20 10:19 Freq: Status: Active Protocol: Document 04/16/20 12:44 AMB (Rec: 04/16/20 13:22 AMB [id number]) Current Condition History of Current Condition Onset Date 04/10/20 Current Complaints R TKA History of Current Condition 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 She is using a FWW currently. She lives with her daughter and son in law and does not need to do any stairs to get into her part of the house, although there are stairs to get into their house. She has a walk in shower and was able to shower yesterday with her daughter's supervision. She reports she is taking ibuprofen and tylenol for pain relief with one opiate medication at bed time. She had previously had a L TKA which she felt rehabed well. Treatment Goals Patient/Caregiver Goals Walking, previously without assistive device, gardening ( getting into kneeling and getting back up), walking on uneven surfaces. Prior Functional Status Baseline Function- ADL's Modified Independent Baseline Function- Mobility Modified Independent Baseline Function- Gait Community ambulator without AD , reports some difficulty with uneven terrain Current Functional Impairments (Reported) Functional Limitations- ADL's Using FWW for ambulation, needs UE for sit to stand Personal Factors Other Personal Factors That May Effect self reported memory deficits, Therapy/Recovery hx of lumbar surgery PT-OP-C Subjective Start: 04/16/20 10:19 Freq: Status: Active Protocol: Document 06/13/20 11:44 [facility] (Rec: 06/13/20 11:58 [facility] [id number]) OP-PT Subjective Patient Comments Patient Comments Pt reports she has been able to kneel on her couch to adjust her blinds without any discomfort. PT-OP-E Functional Tests Start: 04/16/20 15:35 Freq: Status: Active Protocol: Document 04/16/20 12:45 AMB (Rec: 04/16/20 15:36 AMB [email or web address]) Functional Tests Timed Up and Go (TUG) Score 23 Comments FWW management limited the most PT-OP-G Mobility & Gait Start: 04/16/20 10:19 Freq: Status: Active Protocol: Document 04/16/20 12:45 AMB (Rec: 04/16/20 15:35 AMB [email or web address]) OP Mobility Evaluation Transfers Sit to Stand requires UE support when moving from standard height chair OP Gait Assessment Comments Gait Comments Ambulating with FWW good step length, fairly slow with backing up with walker and with turns. PT-OP-J Posture/Palpation/Skin Start: 04/16/20 10:19 Freq: Status: Active Protocol: Document 04/16/20 12:45 AMB (Rec: 04/16/20 15:35 AMB [email or web address]) Skin Assessment Edema Assessment Right Leg Edema Type Pitting Edema Degree 3+ Comments 3+ at ankle, no pitting at knee, but swelling is present throughout, mild bruising at knee Circumference Measurement 2 Location L mid patella Measurement (Centimeters) 51 1 Location R mid patella Measurement (Centimeters) 44 Incisional Assessment Incision Appearance/Comments incision is covered, no redness noted in knee that is visible PT-OP-K Range of Motion Start: 04/16/20 10:19 Freq: Status: Active Protocol: Document 05/06/20 09:03 SP (Rec: 05/06/20 12:04 SP [id number]) Knee Goniometric Range of Motion Knee Right Knee ROM WFL No Patient Position Supine Flexion Active (degrees) 127 Extension Active (degrees) 1 Comments Did not assess PROM today. R foot propped up on 1/2 foam roll during measurement during ext. PT-OP-M Strength Start: 04/16/20 10:19 Freq: Status: Active Protocol: Document 04/16/20 12:45 AMB (Rec: 04/16/20 15:35 AMB [email or web address]) Knee Strength Knee Manual Muscle Testing Right Flexion (S2) 4 Good Extension (L3) 4- Good- Left Flexion (S2) 4+ Good+ Extension (L3) 4+ Good+ PT-OP-Q Treatments Start: 04/16/20 10:19 Freq: Status: Active Protocol: Document 06/13/20 11:44 [facility] (Rec: 06/13/20 11:58 [facility] [id number]) Cardio Equipment Bicycle (Upright) Duration (Minutes) 10 Gym Equipment Cable Column (Body Solid) Hip Abduction Resistance 20# Reps/Time 2x10 Leg Extension Details leg extension Resistance 30# Reps/Time 2x10 Leg Curl Details hamstring curl Resistance 40# Reps/Time 3 x 10 Shuttle Recovery Unilateral Squats Details focus on extension and med/ lat alignment Resistance 25 Shuttle Recovery Platform Stable Reps/Time x10 Bilateral Heel Raises Details 50# Reps/Time 20 reps, ball between knees Bilateral Squats Details knee alignment Resistance 75# Reps/Time 3x10 Shuttle Balance red clips Details WBOS, NBOS, stagger Reps/Duration 8 Comments EO/EC Therapeutic Exercises Sitting Exercises quad stretch with the ball Sitting Exercise Name quad stretch with the ball Comments in standing calf stretch Sitting Exercise Name calf stretch Side right Equipment Used strap Reps/Minutes 30x3 Standing Exercises SLS Side bilateral Resistance improved decrease heavy self support on counter top Equipment Used stair rail in front of mirror Reps/Minutes needed hand support for right to hold x 10 sec sec R LE, 15 sec LLE Comments Cued upright posture, wt shift over stance leg, glut & TA PT-OP-R Modalities Start: 04/16/20 10:19 Freq: Status: Active Protocol: Document 06/06/20 13:07 [facility] (Rec: 06/06/20 13:08 [facility] [email or web address]) Hot Pack/Cold Pack Treatment Cold Pack Location right knee Patient Position Hooklying Treatment Duration (minutes) 10 Patient Tolerance Good PT-OP-T Assessment and Plan Start: 04/16/20 10:19 Freq: Status: Active Protocol: Document 06/13/20 11:44 [facility] (Rec: 06/13/20 11:58 [facility] [id number]) Physical Therapy Assessment Assessment Summary Assessment worked on single leg balance today and it is more challanging on the right leg. Pt to work on this at home. Physical Therapy Plan Frequency and Duration Frequency of Treatment 2x/Week Duration of Treatment 10 weeks Plan of Care Start Date 04/16/20 Plan of Care End Date 06/25/20 Therapeutic Interventions Therapeutic Interventions Gait Training,Home Exercise Program,Manual Therapy, Neuromuscular Re-education, Self-Care/Home Management, Therapeutic Activities, Therapeutic Exercises Modalities Cold Pack/Ice Massage,Electric Stimulation Hold Physical Therapy Reason For Hold Hold PT as patient still has at least three weeks until she can schedule surgery due to her infection in her toe. She may end up needing to be discharged prior to her surgery due to the length of time inbetween. Discharge Physical Therapy Discharge Reasons Change in Medical Status Next Visit Focus/Plan Next Note Type Treatment Note Next Visit Plan TKE, step ups, gait and sport cord. Progress balance exercises and strengthening exercises for full extension
--- NOTE | 2020-06-18 12:01 | PT.OTN ---
Current Diagnoses Unilateral primary osteoarthritis, right knee (06/18/20) Other abnormalities of gait and mobility (06/18/20) Physical Therapy Treatment Note PT-OP-A Visit Information Start: 04/16/20 10:19 Freq: Status: Active Protocol: Document 06/18/20 11:23 [facility] (Rec: 06/18/20 11:23 [facility] [id number]) Out-Patient Physical Therapy Visit Information Visit Information Visit Type Treatment Note Visit Start Time 11:15 Visit Stop Time 12:00 Total Visit Minutes 45 Visit Number 19 PT-OP-B Current Condition Start: 04/16/20 10:19 Freq: Status: Active Protocol: Document 04/16/20 12:44 AMB (Rec: 04/16/20 13:22 AMB [id number]) Current Condition History of Current Condition Onset Date 04/10/20 Current Complaints R TKA History of Current Condition 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 She is using a FWW currently. She lives with her daughter and son in law and does not need to do any stairs to get into her part of the house, although there are stairs to get into their house. She has a walk in shower and was able to shower yesterday with her daughter's supervision. She reports she is taking ibuprofen and tylenol for pain relief with one opiate medication at bed time. She had previously had a L TKA which she felt rehabed well. Treatment Goals Patient/Caregiver Goals Walking, previously without assistive device, gardening ( getting into kneeling and getting back up), walking on uneven surfaces. Prior Functional Status Baseline Function- ADL's Modified Independent Baseline Function- Mobility Modified Independent Baseline Function- Gait Community ambulator without AD , reports some difficulty with uneven terrain Current Functional Impairments (Reported) Functional Limitations- ADL's Using FWW for ambulation, needs UE for sit to stand Personal Factors Other Personal Factors That May Effect self reported memory deficits, Therapy/Recovery hx of lumbar surgery PT-OP-C Subjective Start: 04/16/20 10:19 Freq: Status: Active Protocol: Document 06/18/20 11:23 [facility] (Rec: 06/18/20 11:24 [facility] [id number]) OP-PT Subjective Patient Comments Patient Comments pt reports she is doing well and has been walking more now with the nicer weather Patient Reported Progress Improving PT-OP-E Functional Tests Start: 04/16/20 15:35 Freq: Status: Active Protocol: Document 04/16/20 12:45 AMB (Rec: 04/16/20 15:36 AMB [email or web address]) Functional Tests Timed Up and Go (TUG) Score 23 Comments FWW management limited the most PT-OP-G Mobility & Gait Start: 04/16/20 10:19 Freq: Status: Active Protocol: Document 04/16/20 12:45 AMB (Rec: 04/16/20 15:35 AMB [email or web address]) OP Mobility Evaluation Transfers Sit to Stand requires UE support when moving from standard height chair OP Gait Assessment Comments Gait Comments Ambulating with FWW good step length, fairly slow with backing up with walker and with turns. PT-OP-J Posture/Palpation/Skin Start: 04/16/20 10:19 Freq: Status: Active Protocol: Document 04/16/20 12:45 AMB (Rec: 04/16/20 15:35 AMB [email or web address]) Skin Assessment Edema Assessment Right Leg Edema Type Pitting Edema Degree 3+ Comments 3+ at ankle, no pitting at knee, but swelling is present throughout, mild bruising at knee Circumference Measurement 2 Location L mid patella Measurement (Centimeters) 51 1 Location R mid patella Measurement (Centimeters) 44 Incisional Assessment Incision Appearance/Comments incision is covered, no redness noted in knee that is visible PT-OP-K Range of Motion Start: 04/16/20 10:19 Freq: Status: Active Protocol: Document 05/06/20 09:03 SP (Rec: 05/06/20 12:04 SP [id number]) Knee Goniometric Range of Motion Knee Right Knee ROM WFL No Patient Position Supine Flexion Active (degrees) 127 Extension Active (degrees) 1 Comments Did not assess PROM today. R foot propped up on 1/2 foam roll during measurement during ext. PT-OP-M Strength Start: 04/16/20 10:19 Freq: Status: Active Protocol: Document 04/16/20 12:45 AMB (Rec: 04/16/20 15:35 AMB [email or web address]) Knee Strength Knee Manual Muscle Testing Right Flexion (S2) 4 Good Extension (L3) 4- Good- Left Flexion (S2) 4+ Good+ Extension (L3) 4+ Good+ PT-OP-Q Treatments Start: 04/16/20 10:19 Freq: Status: Active Protocol: Document 06/18/20 11:39 [facility] (Rec: 06/18/20 11:59 [facility] [id number]) Cardio Equipment Bicycle (Upright) Duration (Minutes) 10 Gym Equipment Cable Column (Body Solid) Hip Abduction Resistance 20# Reps/Time 2x10 Leg Extension Details leg extension Resistance 30# Reps/Time 2x10 Leg Curl Details hamstring curl Resistance 40# Reps/Time 3 x 10 Shuttle Recovery Unilateral Squats Details focus on extension and med/ lat alignment Resistance 25 Shuttle Recovery Platform Stable Reps/Time x10 Bilateral Squats Details knee alignment Resistance 75# Reps/Time 3x10 Shuttle Balance red clips Details WBOS, NBOS, stagger Reps/Duration 8 Comments EO/EC Therapeutic Exercises Sitting Exercises quad stretch with the ball Sitting Exercise Name quad stretch with the ball Comments in standing calf stretch Sitting Exercise Name calf stretch Side right Equipment Used strap Reps/Minutes 30x3 Standing Exercises SLS Side bilateral Comments 12 seconds R 7 sec L PT-OP-R Modalities Start: 04/16/20 10:19 Freq: Status: Active Protocol: Document 06/18/20 11:59 [facility] (Rec: 06/18/20 12:00 [facility] [id number]) Hot Pack/Cold Pack Treatment Cold Pack Location right knee Patient Position Hooklying Treatment Duration (minutes) 10 Patient Tolerance Good PT-OP-T Assessment and Plan Start: 04/16/20 10:19 Freq: Status: Active Protocol: Document 06/18/20 11:39 [facility] (Rec: 06/18/20 11:59 [facility] [id number]) Physical Therapy Assessment Assessment Summary Assessment single leg balance looks better today, decreased LE swelling Physical Therapy Plan Frequency and Duration Frequency of Treatment 2x/Week Duration of Treatment 10 weeks Plan of Care Start Date 04/16/20 Plan of Care End Date 06/25/20 Therapeutic Interventions Therapeutic Interventions Gait Training,Home Exercise Program,Manual Therapy, Neuromuscular Re-education, Self-Care/Home Management, Therapeutic Activities, Therapeutic Exercises Modalities Cold Pack/Ice Massage,Electric Stimulation
--- NOTE | 2020-06-20 12:53 | PT.OTN ---
Current Diagnoses Unilateral primary osteoarthritis, right knee (06/20/20) Other abnormalities of gait and mobility (06/20/20) Physical Therapy Treatment Note PT-OP-A Visit Information Start: 04/16/20 10:19 Freq: Status: Active Protocol: Document 06/20/20 11:26 [facility] (Rec: 06/20/20 11:27 [facility] [id number]) Out-Patient Physical Therapy Visit Information Visit Information Visit Type Progress Note Visit Start Time 11:15 Visit Stop Time 12:00 Total Visit Minutes 45 Visit Number 20 PT-OP-B Current Condition Start: 04/16/20 10:19 Freq: Status: Active Protocol: Document 04/16/20 12:44 AMB (Rec: 04/16/20 13:22 AMB [id number]) Current Condition History of Current Condition Onset Date 04/10/20 Current Complaints R TKA History of Current Condition 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 She is using a FWW currently. She lives with her daughter and son in law and does not need to do any stairs to get into her part of the house, although there are stairs to get into their house. She has a walk in shower and was able to shower yesterday with her daughter's supervision. She reports she is taking ibuprofen and tylenol for pain relief with one opiate medication at bed time. She had previously had a L TKA which she felt rehabed well. Treatment Goals Patient/Caregiver Goals Walking, previously without assistive device, gardening ( getting into kneeling and getting back up), walking on uneven surfaces. Prior Functional Status Baseline Function- ADL's Modified Independent Baseline Function- Mobility Modified Independent Baseline Function- Gait Community ambulator without AD , reports some difficulty with uneven terrain Current Functional Impairments (Reported) Functional Limitations- ADL's Using FWW for ambulation, needs UE for sit to stand Personal Factors Other Personal Factors That May Effect self reported memory deficits, Therapy/Recovery hx of lumbar surgery PT-OP-C Subjective Start: 04/16/20 10:19 Freq: Status: Active Protocol: Document 06/20/20 11:26 [facility] (Rec: 06/20/20 11:27 [facility] [id number]) OP-PT Subjective Patient Comments Patient Comments pt was a little sorer after her appointment on wednesday. PT-OP-E Functional Tests Start: 04/16/20 15:35 Freq: Status: Active Protocol: Document 04/16/20 12:45 AMB (Rec: 04/16/20 15:36 AMB [email or web address]) Functional Tests Timed Up and Go (TUG) Score 23 Comments FWW management limited the most PT-OP-G Mobility & Gait Start: 04/16/20 10:19 Freq: Status: Active Protocol: Document 04/16/20 12:45 AMB (Rec: 04/16/20 15:35 AMB [email or web address]) OP Mobility Evaluation Transfers Sit to Stand requires UE support when moving from standard height chair OP Gait Assessment Comments Gait Comments Ambulating with FWW good step length, fairly slow with backing up with walker and with turns. PT-OP-J Posture/Palpation/Skin Start: 04/16/20 10:19 Freq: Status: Active Protocol: Document 04/16/20 12:45 AMB (Rec: 04/16/20 15:35 AMB [email or web address]) Skin Assessment Edema Assessment Right Leg Edema Type Pitting Edema Degree 3+ Comments 3+ at ankle, no pitting at knee, but swelling is present throughout, mild bruising at knee Circumference Measurement 2 Location L mid patella Measurement (Centimeters) 51 1 Location R mid patella Measurement (Centimeters) 44 Incisional Assessment Incision Appearance/Comments incision is covered, no redness noted in knee that is visible PT-OP-K Range of Motion Start: 04/16/20 10:19 Freq: Status: Active Protocol: Document 06/20/20 12:06 [facility] (Rec: 06/20/20 12:07 [facility] [id number]) Knee Goniometric Range of Motion Knee Right Patient Position Supine Flexion Active (degrees) 127 Extension Active (degrees) 2 PT-OP-M Strength Start: 04/16/20 10:19 Freq: Status: Active Protocol: Document 04/16/20 12:45 AMB (Rec: 04/16/20 15:35 AMB [email or web address]) Knee Strength Knee Manual Muscle Testing Right Flexion (S2) 4 Good Extension (L3) 4- Good- Left Flexion (S2) 4+ Good+ Extension (L3) 4+ Good+ PT-OP-Q Treatments Start: 04/16/20 10:19 Freq: Status: Active Protocol: Document 06/20/20 11:38 [facility] (Rec: 06/20/20 12:05 [facility] [id number]) Cardio Equipment Bicycle (Upright) Duration (Minutes) 10 Other level 10 Gym Equipment Cable Column (Body Solid) Hip Abduction Resistance 20# Reps/Time 2x10 Leg Extension Details leg extension Resistance 30# Reps/Time 2x10 Leg Curl Details hamstring curl Resistance 40# Reps/Time 3 x 10 Shuttle Recovery Unilateral Squats Details focus on extension and med/ lat alignment Resistance 25 Shuttle Recovery Platform Stable Reps/Time x10 Bilateral Squats Details knee alignment Resistance 75# Reps/Time 3x10 Therapeutic Exercises Sitting Exercises quad stretch with the ball Sitting Exercise Name quad stretch with the ball Comments in standing calf stretch Sitting Exercise Name calf stretch Side right Equipment Used strap Reps/Minutes 30x3 PT-OP-R Modalities Start: 04/16/20 10:19 Freq: Status: Active Protocol: Document 06/18/20 11:59 [facility] (Rec: 06/18/20 12:00 [facility] [id number]) Hot Pack/Cold Pack Treatment Cold Pack Location right knee Patient Position Hooklying Treatment Duration (minutes) 10 Patient Tolerance Good PT-OP-T Assessment and Plan Start: 04/16/20 10:19 Freq: Status: Active Protocol: Document 06/20/20 11:38 [facility] (Rec: 06/20/20 12:05 [facility] [id number]) Physical Therapy Assessment Goals Five Impairment Gait Short Term Goal (STG) Nevaeh will ambulate with a SPC/ walking stick for 6 minutes without antalgic gait. goal met Grinding Wheel Dresser Goal (LTG) Patient will hold SLS on bilateral extremities for >15 seconds on unstable surface in 6 weeks. good proress pt is able to sustain balance x 4 seconds on the right and 10 seconds on the left Four Impairment ADLs Short Term Goal (STG) Nevaeh will ascend and descend a flight of stairs with one railing without an increase in baseline pain. STG Duration 4 weeks [facility] Goal (LTG) Pt will be able to return to gardening without difficulty LTG Duration 8 weeks Three Impairment ROM Short Term Goal (STG) Pt will have 0-120 deg AROM. 05/06/20: progressing 1-127 deg R knee AROM. Grinding Wheel Dresser Goal (LTG) Pt will be able to have enough ROM and control to ascend and descend stairs reciprocally excellent progress Two Impairment Strength Short Term Goal (STG) Nevaeh will be independent and consistent with her HEP. GOAL MET [facility] Goal (LTG) Nevaeh will improve her LE strength so that she can stand from a standard height chair with little to no UE support. GOAL MET One Impairment Swelling Short Term Goal (STG) Nevaeh will decrease her swelling so that she does not have EXCELLENT PROGRESS, there is still a small amount of swelling in the ankle on the right Progress Towards Goals Progress Towards Goals Progressing Toward Goals Assessment Summary Assessment Nevaeh has made really good progress overall. She has no complaints of pain at this time and strength and ROM have both greatly improved. We are still working on single leg balance and a small amount of LE edema. Nevaeh has one week left of PT visits and will then be discharged to a HEP. Physical Therapy Plan Frequency and Duration Frequency of Treatment 2x/Week Duration of Treatment 1 week Plan of Care Start Date 06/20/20 Plan of Care End Date 06/27/20 Therapeutic Interventions Therapeutic Interventions Gait Training,Home Exercise Program,Manual Therapy, Neuromuscular Re-education, Self-Care/Home Management, Therapeutic Activities, Therapeutic Exercises Modalities Cold Pack/Ice Massage,Electric Stimulation Next Visit Focus/Plan Next Note Type Treatment Note Next Visit Plan pt has 2 visits left in PT, continue working on SLS activities and HEP for her last 2 visits.
--- NOTE | 2020-06-20 12:54 | PT.OPPOC ---
Physical, Occupational & Speech Therapy At [facility] Current Diagnoses Unilateral primary osteoarthritis, right knee (06/20/20) Other abnormalities of gait and mobility (06/20/20) Visit Care Team Role Provider Type Richie Lamb MD Primary Care Provider Physician Specialty: Family Practice Address: [address] [place] [address], [facility] [place], [address] Email: [email or web address] Brian Flynn MD Attending Provider Physician Referring Provider Specialty: Orthopedic Surgery Address: [address] [place] [address], [address] Email: [email or web address] Plan Of Care PT-OP-T Assessment and Plan Start: 04/16/20 10:19 Freq: Status: Active Protocol: Document 06/20/20 11:38 AMH (Rec: 06/20/20 12:05 AMH [id number]) Physical Therapy Assessment Goals Five Impairment Gait Short Term Goal (STG) Nevaeh will ambulate with a SPC/ walking stick for 6 minutes without antalgic gait. goal met Mcfp Goal (LTG) Patient will hold SLS on bilateral extremities for >15 seconds on unstable surface in 6 weeks. good proress pt is able to sustain balance x 4 seconds on the right and 10 seconds on the left Four Impairment ADLs Short Term Goal (STG) Nevaeh will ascend and descend a flight of stairs with one railing without an increase in baseline pain. STG Duration 4 weeks [employer] Goal (LTG) Pt will be able to return to gardening without difficulty LTG Duration 8 weeks Three Impairment ROM Short Term Goal (STG) Pt will have 0-120 deg AROM. 05/06/20: progressing 1-127 deg R knee AROM. [employer] Goal (LTG) Pt will be able to have enough ROM and control to ascend and descend stairs reciprocally excellent progress Two Impairment Strength Short Term Goal (STG) Nevaeh will be independent and consistent with her HEP. GOAL MET [employer] Mason Goal (LTG) Nevaeh will improve her LE strength so that she can stand from a standard height chair with little to no UE support. GOAL MET One Impairment Swelling Short Term Goal (STG) Nevaeh will decrease her swelling so that she does not have EXCELLENT PROGRESS, there is still a small amount of swelling in the ankle on the right Progress Towards Goals Progress Towards Goals Progressing Toward Goals Assessment Summary Assessment Nevaeh has made really good progress overall. She has no complaints of pain at this time and strength and ROM have both greatly improved. We are still working on single leg balance and a small amount of LE edema. Nevaeh has one week left of PT visits and will then be discharged to a HEP. Physical Therapy Plan Frequency and Duration Frequency of Treatment 2x/Week Duration of Treatment 1 week Plan of Care Start Date 06/20/20 Plan of Care End Date 06/27/20 Therapeutic Interventions Therapeutic Interventions Gait Training,Home Exercise Program,Manual Therapy, Neuromuscular Re-education, Self-Care/Home Management, Therapeutic Activities, Therapeutic Exercises Modalities Cold Pack/Ice Massage,Electric Stimulation Next Visit Focus/Plan Next Note Type Treatment Note Next Visit Plan pt has 2 visits left in PT, continue working on SLS activities and HEP for her last 2 visits. Plan of Care Dates Plan of Care Start Date 06/20/20 Plan of Care End Date 06/27/20 Electronically Signed by: Shalonda Moran, PT 06/20/20 1366 Please Sign and Return: I have reviewed this Plan of Care and certify that the skilled therapy services above are required to meet the patient?s needs. Physician Signature Date Printed Name and Credentials Clinical Instructor Signature Printed Name and Credentials
--- NOTE | 2020-06-25 12:08 | PT.OTN ---
Current Diagnoses Unilateral primary osteoarthritis, right knee (06/25/20) Other abnormalities of gait and mobility (06/25/20) Physical Therapy Treatment Note PT-OP-A Visit Information Start: 04/16/20 10:19 Freq: Status: Active Protocol: Document 06/25/20 11:23 AMH (Rec: 06/25/20 11:24 AMH [email or web address]) Out-Patient Physical Therapy Visit Information Visit Information Visit Type Treatment Note Visit Start Time 11:15 Visit Stop Time 12:00 Total Visit Minutes 45 Visit Number 21 PT-OP-B Current Condition Start: 04/16/20 10:19 Freq: Status: Active Protocol: Document 04/16/20 12:44 AMB (Rec: 04/16/20 13:22 AMB [id number]) Current Condition History of Current Condition Onset Date 04/10/20 Current Complaints R TKA History of Current Condition 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 She is using a FWW currently. She lives with her daughter and son in law and does not need to do any stairs to get into her part of the house, although there are stairs to get into their house. She has a walk in shower and was able to shower yesterday with her daughter's supervision. She reports she is taking ibuprofen and tylenol for pain relief with one opiate medication at bed time. She had previously had a L TKA which she felt rehabed well. Treatment Goals Patient/Caregiver Goals Walking, previously without assistive device, gardening ( getting into kneeling and getting back up), walking on uneven surfaces. Prior Functional Status Baseline Function- ADL's Modified Independent Baseline Function- Mobility Modified Independent Baseline Function- Gait Community ambulator without AD , reports some difficulty with uneven terrain Current Functional Impairments (Reported) Functional Limitations- ADL's Using FWW for ambulation, needs UE for sit to stand Personal Factors Other Personal Factors That May Effect self reported memory deficits, Therapy/Recovery hx of lumbar surgery PT-OP-C Subjective Start: 04/16/20 10:19 Freq: Status: Active Protocol: Document 06/25/20 11:23 AMH (Rec: 06/25/20 11:24 AMH [email or web address]) OP-PT Subjective Patient Comments Patient Comments pt reports she did more walking around [place] and her knee was a little sore afterwards PT-OP-E Functional Tests Start: 04/16/20 15:35 Freq: Status: Active Protocol: Document 04/16/20 12:45 AMB (Rec: 04/16/20 15:36 AMB [email or web address]) Functional Tests Timed Up and Go (TUG) Score 23 Comments FWW management limited the most PT-OP-G Mobility & Gait Start: 04/16/20 10:19 Freq: Status: Active Protocol: Document 04/16/20 12:45 AMB (Rec: 04/16/20 15:35 AMB [email or web address]) OP Mobility Evaluation Transfers Sit to Stand requires UE support when moving from standard height chair OP Gait Assessment Comments Gait Comments Ambulating with FWW good step length, fairly slow with backing up with walker and with turns. PT-OP-J Posture/Palpation/Skin Start: 04/16/20 10:19 Freq: Status: Active Protocol: Document 04/16/20 12:45 AMB (Rec: 04/16/20 15:35 AMB [email or web address]) Skin Assessment Edema Assessment Right Leg Edema Type Pitting Edema Degree 3+ Comments 3+ at ankle, no pitting at knee, but swelling is present throughout, mild bruising at knee Circumference Measurement 2 Location L mid patella Measurement (Centimeters) 51 1 Location R mid patella Measurement (Centimeters) 44 Incisional Assessment Incision Appearance/Comments incision is covered, no redness noted in knee that is visible PT-OP-K Range of Motion Start: 04/16/20 10:19 Freq: Status: Active Protocol: Document 06/20/20 12:06 AMH (Rec: 06/20/20 12:07 AMH [id number]) Knee Goniometric Range of Motion Knee Right Patient Position Supine Flexion Active (degrees) 127 Extension Active (degrees) 2 PT-OP-M Strength Start: 04/16/20 10:19 Freq: Status: Active Protocol: Document 04/16/20 12:45 AMB (Rec: 04/16/20 15:35 AMB [email or web address]) Knee Strength Knee Manual Muscle Testing Right Flexion (S2) 4 Good Extension (L3) 4- Good- Left Flexion (S2) 4+ Good+ Extension (L3) 4+ Good+ PT-OP-Q Treatments Start: 04/16/20 10:19 Freq: Status: Active Protocol: Document 06/25/20 11:25 AMH (Rec: 06/25/20 11:26 AMH [email or web address]) Cardio Equipment Bicycle (Upright) Duration (Minutes) 10 Other level 10 Gym Equipment Cable Column (Body Solid) Hip Abduction Resistance 20# Reps/Time 2x10 Shuttle Recovery Unilateral Squats Details focus on extension and med/ lat alignment Resistance 25 Shuttle Recovery Platform Stable Reps/Time x10 Bilateral Squats Details knee alignment Resistance 75# Reps/Time 3x10 Shuttle Balance red clips Details WBOS, NBOS, stagger Reps/Duration 8 Comments EO/EC Blue chains Details WBOS, NBOS, stagger (hands hover rail) Reps/Duration 3 min total Comments red chains, head turns yellow chains Details EO/EC, narrow stance, modified tandem stance Reps/Duration 10 minutes Comments Attempted work on blue chains, but was too challenging for pt. Red chains provided just- right challenge with pt reporting she feels her ankles working a lot. Therapeutic Exercises Supine Exercises Derek stretch Supine Exercise Name L knee bent on table (diagonal angle for safety EO table) Side right Equipment Used PROM by therapist and self use of strap around ankle Reps/Minutes 30 x 4 Comments 30 sec, pelvic tilt, therapist assist for heel to bum Sitting Exercises Hamstring curls Sitting Exercise Name standing hamstring curls and stretch for the quad Side bilateral Reps/Minutes 2 x 10 reps calf stretch Sitting Exercise Name calf stretch Side right Equipment Used strap Reps/Minutes 30x3 Manual Therapy Treatment Soft Tissue Mobilization quad STM Body Location right quad STM scar mobility Body Location R knee scar mobility Intensity/Depth Superficial Body Position Sitting PT-OP-R Modalities Start: 04/16/20 10:19 Freq: Status: Active Protocol: Document 06/18/20 11:59 [facility] (Rec: 06/18/20 12:00 [facility] [id number]) Hot Pack/Cold Pack Treatment Cold Pack Location right knee Patient Position Hooklying Treatment Duration (minutes) 10 Patient Tolerance Good PT-OP-T Assessment and Plan Start: 04/16/20 10:19 Freq: Status: Active Protocol: Document 06/25/20 12:06 [facility] (Rec: 06/25/20 12:08 [facility] [email or web address]) Physical Therapy Assessment Assessment Summary Assessment pt a little more swollen in her ankles today after her walk. We discussed compression stockings when she is walking. Worked on quad STM today as she felt tight in this region. Reviewed stretches for the quad for home. Tomorrow will be her last PT visit Physical Therapy Plan Frequency and Duration Frequency of Treatment 2x/Week Duration of Treatment 1 week Plan of Care Start Date 06/20/20 Plan of Care End Date 06/27/20 Next Visit Focus/Plan Next Note Type Treatment Note Next Visit Plan review all HEP exercises next visit as it will be her last PT visit.
--- NOTE | 2020-06-27 12:06 | PT.OTN ---
Current Diagnoses Unilateral primary osteoarthritis, right knee (06/27/20) Other abnormalities of gait and mobility (06/27/20) Physical Therapy Treatment Note PT-OP-A Visit Information Start: 04/16/20 10:19 Freq: Status: Active Protocol: Document 06/27/20 11:23 AMH (Rec: 06/27/20 11:26 AMH [id number]) Out-Patient Physical Therapy Visit Information Visit Information Visit Type Treatment Note Visit Start Time 11:15 Visit Stop Time 12:00 Total Visit Minutes 45 Visit Number 22 PT-OP-B Current Condition Start: 04/16/20 10:19 Freq: Status: Active Protocol: Document 04/16/20 12:44 AMB (Rec: 04/16/20 13:22 AMB [id number]) Current Condition History of Current Condition Onset Date 04/10/20 Current Complaints R TKA History of Current Condition 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 She is using a FWW currently. She lives with her daughter and son in law and does not need to do any stairs to get into her part of the house, although there are stairs to get into their house. She has a walk in shower and was able to shower yesterday with her daughter's supervision. She reports she is taking ibuprofen and tylenol for pain relief with one opiate medication at bed time. She had previously had a L TKA which she felt rehabed well. Treatment Goals Patient/Caregiver Goals Walking, previously without assistive device, gardening ( getting into kneeling and getting back up), walking on uneven surfaces. Prior Functional Status Baseline Function- ADL's Modified Independent Baseline Function- Mobility Modified Independent Baseline Function- Gait Community ambulator without AD , reports some difficulty with uneven terrain Current Functional Impairments (Reported) Functional Limitations- ADL's Using FWW for ambulation, needs UE for sit to stand Personal Factors Other Personal Factors That May Effect self reported memory deficits, Therapy/Recovery hx of lumbar surgery PT-OP-C Subjective Start: 04/16/20 10:19 Freq: Status: Active Protocol: Document 06/27/20 11:27 AMH (Rec: 06/27/20 11:27 AMH [id number]) OP-PT Subjective Patient Comments Patient Comments pt reports she both rode the bike and walked yesterday. She feels independent with her HEP Patient Reported Progress Improving PT-OP-E Functional Tests Start: 04/16/20 15:35 Freq: Status: Active Protocol: Document 04/16/20 12:45 AMB (Rec: 04/16/20 15:36 AMB [email or web address]) Functional Tests Timed Up and Go (TUG) Score 23 Comments FWW management limited the most PT-OP-G Mobility & Gait Start: 04/16/20 10:19 Freq: Status: Active Protocol: Document 04/16/20 12:45 AMB (Rec: 04/16/20 15:35 AMB [email or web address]) OP Mobility Evaluation Transfers Sit to Stand requires UE support when moving from standard height chair OP Gait Assessment Comments Gait Comments Ambulating with FWW good step length, fairly slow with backing up with walker and with turns. PT-OP-J Posture/Palpation/Skin Start: 04/16/20 10:19 Freq: Status: Active Protocol: Document 04/16/20 12:45 AMB (Rec: 04/16/20 15:35 AMB [email or web address]) Skin Assessment Edema Assessment Right Leg Edema Type Pitting Edema Degree 3+ Comments 3+ at ankle, no pitting at knee, but swelling is present throughout, mild bruising at knee Circumference Measurement 2 Location L mid patella Measurement (Centimeters) 51 1 Location R mid patella Measurement (Centimeters) 44 Incisional Assessment Incision Appearance/Comments incision is covered, no redness noted in knee that is visible PT-OP-K Range of Motion Start: 04/16/20 10:19 Freq: Status: Active Protocol: Document 06/20/20 12:06 AMH (Rec: 06/20/20 12:07 AMH [id number]) Knee Goniometric Range of Motion Knee Right Patient Position Supine Flexion Active (degrees) 127 Extension Active (degrees) 2 PT-OP-M Strength Start: 04/16/20 10:19 Freq: Status: Active Protocol: Document 04/16/20 12:45 AMB (Rec: 04/16/20 15:35 AMB [email or web address]) Knee Strength Knee Manual Muscle Testing Right Flexion (S2) 4 Good Extension (L3) 4- Good- Left Flexion (S2) 4+ Good+ Extension (L3) 4+ Good+ PT-OP-Q Treatments Start: 04/16/20 10:19 Freq: Status: Active Protocol: Document 06/27/20 11:30 AMH (Rec: 06/27/20 12:04 [facility] [id number]) Cardio Equipment Bicycle (Upright) Duration (Minutes) 10 Other level 10 Gym Equipment Shuttle Recovery Unilateral Squats Details focus on extension and med/ lat alignment Resistance 25 Shuttle Recovery Platform Stable Reps/Time x10 Bilateral Heel Raises Details 50# Resistance 100# Shuttle Recovery Platform Stable Reps/Time 20 reps, ball between knees Bilateral Squats Details knee alignment Resistance 75# Shuttle Recovery Platform Stable Reps/Time 3x10 Therapeutic Exercises Supine Exercises Hamstring stretch Side bilateral Equipment Used gait belt Comments biased toward adduction ankle ROM Supine Exercise Name with level 2 theraband Reps/Minutes 2 x10 Sitting Exercises quad stretch with the ball Sitting Exercise Name quad stretch Hamstring curls Sitting Exercise Name standing hamstring curls and stretch for the quad Side bilateral Reps/Minutes 2 x 10 reps calf stretch Sitting Exercise Name calf stretch Side right Equipment Used strap Reps/Minutes 30x3 Standing Exercises standing squats Standing Exercise Name standing squats Reps/Minutes 2 x 10 reps SLS Side bilateral Comments 12 seconds R 7 sec L standing hip extension and abduction Standing Exercise Name standing hip extension and abduction Reps/Minutes 3 x 10 reps step down Standing Exercise Name Lateral step down/up Side bilateral Equipment Used 4 inch step Reps/Minutes 2x10 Comments toe tap to ground, working on less hand held support and full R knee ext PT-OP-R Modalities Start: 04/16/20 10:19 Freq: Status: Active Protocol: Document 06/18/20 11:59 AMH (Rec: 06/18/20 12:00 [facility] [id number]) Hot Pack/Cold Pack Treatment Cold Pack Location right knee Patient Position Hooklying Treatment Duration (minutes) 10 Patient Tolerance Good PT-OP-T Assessment and Plan Start: 04/16/20 10:19 Freq: Status: Active Protocol: Document 06/27/20 12:04 AMH (Rec: 06/27/20 12:06 [facility] [id number]) Physical Therapy Assessment Progress Towards Goals Progress Towards Goals Goals Met Assessment Summary Assessment Nevaeh has been working on ankle ROM to help with swelling. SHe was able to demonstrate step over step going both up and down stairs today. All exercises were reviewed for home and she is independent with a HEP SHe will be discharged from PT at this time Physical Therapy Plan Discharge Physical Therapy Discharge Reasons Goals Met
--- NOTE | 2020-10-01 14:01 | PT.OPDS ---
Current Diagnoses Unilateral primary osteoarthritis, right knee (06/27/20) Other abnormalities of gait and mobility (06/27/20) Visit Care Team Role Provider Type Richie Lamb MD Primary Care Provider Physician Specialty: Family Practice Address: [facility], [facility] [place], [address] Email: [email or web address] Brian Flynn MD Attending Provider Physician Referring Provider Specialty: Orthopedic Surgery Address: [address] [place] [address], [place], [address] Email: [email or web address] Visit Number Visit Number 22 Discharge Summary PT-OP-B Current Condition Start: 04/16/20 10:19 Freq: Status: Active Protocol: Document 04/16/20 12:44 AMB (Rec: 04/16/20 13:22 AMB [id number]) Current Condition History of Current Condition Onset Date 04/10/20 Current Complaints R TKA History of Current Condition 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 She is using a FWW currently. She lives with her daughter and son in law and does not need to do any stairs to get into her part of the house, although there are stairs to get into their house. She has a walk in shower and was able to shower yesterday with her daughter's supervision. She reports she is taking ibuprofen and tylenol for pain relief with one opiate medication at bed time. She had previously had a L TKA which she felt rehabed well. Treatment Goals Patient/Caregiver Goals Walking, previously without assistive device, gardening ( getting into kneeling and getting back up), walking on uneven surfaces. Prior Functional Status Baseline Function- ADL's Modified Independent Baseline Function- Mobility Modified Independent Baseline Function- Gait Community ambulator without AD , reports some difficulty with uneven terrain Current Functional Impairments (Reported) Functional Limitations- ADL's Using FWW for ambulation, needs UE for sit to stand Personal Factors Other Personal Factors That May Effect self reported memory deficits, Therapy/Recovery hx of lumbar surgery PT-OP-C Subjective Start: 04/16/20 10:19 Freq: Status: Active Protocol: Document 06/27/20 11:27 AMH (Rec: 06/27/20 11:27 AMH [id number]) OP-PT Subjective Patient Comments Patient Comments pt reports she both rode the bike and walked yesterday. She feels independent with her HEP Patient Reported Progress Improving PT-OP-E Functional Tests Start: 04/16/20 15:35 Freq: Status: Active Protocol: Document 04/16/20 12:45 AMB (Rec: 04/16/20 15:36 AMB [email or web address]) Functional Tests Timed Up and Go (TUG) Score 23 Comments FWW management limited the most PT-OP-G Mobility & Gait Start: 04/16/20 10:19 Freq: Status: Active Protocol: Document 04/16/20 12:45 AMB (Rec: 04/16/20 15:35 AMB [email or web address]) OP Mobility Evaluation Transfers Sit to Stand requires UE support when moving from standard height chair OP Gait Assessment Comments Gait Comments Ambulating with FWW good step length, fairly slow with backing up with walker and with turns. PT-OP-J Posture/Palpation/Skin Start: 04/16/20 10:19 Freq: Status: Active Protocol: Document 04/16/20 12:45 AMB (Rec: 04/16/20 15:35 AMB [email or web address]) Skin Assessment Edema Assessment Right Leg Edema Type Pitting Edema Degree 3+ Comments 3+ at ankle, no pitting at knee, but swelling is present throughout, mild bruising at knee Circumference Measurement 2 Location L mid patella Measurement (Centimeters) 51 1 Location R mid patella Measurement (Centimeters) 44 Incisional Assessment Incision Appearance/Comments incision is covered, no redness noted in knee that is visible PT-OP-K Range of Motion Start: 04/16/20 10:19 Freq: Status: Active Protocol: Document 06/20/20 12:06 AMH (Rec: 06/20/20 12:07 AMH [id number]) Knee Goniometric Range of Motion Knee Right Patient Position Supine Flexion Active (degrees) 127 Extension Active (degrees) 2 PT-OP-M Strength Start: 04/16/20 10:19 Freq: Status: Active Protocol: Document 04/16/20 12:45 AMB (Rec: 04/16/20 15:35 AMB [email or web address]) Knee Strength Knee Manual Muscle Testing Right Flexion (S2) 4 Good Extension (L3) 4- Good- Left Flexion (S2) 4+ Good+ Extension (L3) 4+ Good+ PT-OP-T Assessment and Plan Start: 04/16/20 10:19 Freq: Status: Active Protocol: Document 06/27/20 12:04 [facility] (Rec: 06/27/20 12:06 [facility] [id number]) Physical Therapy Assessment Progress Towards Goals Progress Towards Goals Goals Met Assessment Summary Assessment Nevaeh has been working on ankle ROM to help with swelling. SHe was able to demonstrate step over step going both up and down stairs today. All exercises were reviewed for home and she is independent with a HEP SHe will be discharged from PT at this time Physical Therapy Plan Discharge Physical Therapy Discharge Reasons Goals Met
== END 2020-10-25 13:17 | disposition home or self-care (01) ==
LOC: PHYS 11:15
PROVIDERS: PCP Family Medicine; Referring Provider Orthopaedic Surgery; Visit Provider Orthopaedic Surgery
DX: M17.11 Unilateral primary osteoarthritis, right knee (principal); R26.89 Other abnormalities of gait and mobility
CPT/HCPCS: 97110; 97112; 97116; 97140; 97161

== ENCOUNTER → 2020-07-05 07:58 | Outpatient (CLI) | payer MEDICARE, OTHER, SELFPAY ==
[2020-04-10 17:30] VITALS: BMI 29.1
[2020-07-05] MEDS: COVID-19 VACC #1, MRNA(MOD) 100 MCG/0.5 ML VIAL IM (08:04)
== END ==
PROVIDERS: PCP Family Medicine; Visit Provider Internal Medicine
DX: Z23 Encounter for immunization (principal)
CPT/HCPCS: 0011A; 91301

== ENCOUNTER → 2020-08-01 07:55 | Outpatient (CLI) | payer MEDICARE, OTHER, SELFPAY ==
[2020-04-10 17:30] VITALS: BMI 29.1
[2020-08-01] MEDS: COVID-19 VACC #2, MRNA(MOD) 100 MCG/0.5 ML VIAL IM (08:00)
== END ==
PROVIDERS: PCP Family Medicine; Visit Provider Internal Medicine
DX: Z23 Encounter for immunization (principal)
CPT/HCPCS: 0012A; 91301

== ENCOUNTER → 2020-12-13 12:32 | Outpatient (CLI) | payer MEDICARE, OTHER, SELFPAY ==
[2020-04-10 17:30] VITALS: BMI 29.1
--- NOTE | 2020-12-13 | DI.MRI.S_ITS ---
PROCEDURE: MR HEAD/BRAIN WO CON INDICATIONS: Mild cognitive impairment TECHNIQUE: Non-contrast axial T1 spin echo, axial T2 fast spin echo, sagittal and axial FLAIR, coronal T2 fast spin echo, axial gradient echo, axial diffusion and ADC through the brain. COMPARISON: None. FINDINGS: Image quality: Excellent. CSF spaces: Ventricles appear symmetric in size and shape. Basal cisterns are patent. No extra-axial fluid collections. Brain: No intracranial bleeds or mass effects. There is cerebral volume loss for age. There are periventricular and deep white matter chronic small vessel ischemic changes. Brainstem appears normal. Diffusion-weighted images show no acute ischemic insults. No chronic ischemic insults. Normal intravascular flow voids are present. Skull and face: Calvarial bone marrow is normal in signal. Bilateral intraocular lens replacements noted. Sinuses: Sinuses and mastoids are clear. IMPRESSION: Atrophy and chronic ischemic change without acute hemorrhage, infarct or mass lesion. Dictated by: Wayne Tate M.D. on 12/13/2020 at 14:07 Approved by: Wayne Tate M.D. on 12/13/2020 at 14:13
== END ==
PROVIDERS: PCP Family Medicine; Referring Provider Psychiatry & Neurology Neurology; Visit Provider Psychiatry & Neurology Neurology
DX: G31.84 Mild cognitive impairment of uncertain or unknown etiology
CPT/HCPCS: 70551

== ENCOUNTER 2020-12-23 10:30 | Outpatient (RCR) | payer MEDICARE, OTHER, SELFPAY ==
[2020-04-10 17:30] VITALS: BMI 29.1
--- NOTE | 2020-10-30 18:12 | PT.OIE ---
Current Diagnoses Difficulty in walking, not elsewhere classified (10/30/20) Unsteadiness on feet (10/30/20) Abnormal posture (10/30/20) Past Medical History (Last Updated 04/03/20 @ 13:02 by Marisela Emmanuel RN) Acid reflux Depression HLD (hyperlipidemia) Hypothyroidism Osteoarthritis Toe infection (11/2019) Past Surgical History (Last Updated 11/29/19 @ 10:20 by Marisela Emmanuel RN) History of arthroplasty of left knee (08/22/12) History of back surgery (2005) Hx of appendectomy Hx of bilateral cataract extraction Hx of eye surgery Hx of tonsillectomy Visit Care Team Role Provider Type Truong Saucedo MD Attending Provider Physician Primary Care Provider Referring Provider Specialty: [facility] Address: [facility] [place], [facility] Email: [email or web address] Physical Therapy Initial Evaluation PT-OP-A Visit Information Start: 10/30/20 08:48 Freq: Status: Active Protocol: Document 10/30/20 15:15 AW (Rec: 10/30/20 17:41 AW [email or web address]) Out-Patient Physical Therapy Visit Information Visit Information Visit Type Initial Evaluation Visit Start Time 14:30 Visit Stop Time 15:15 Total Visit Minutes 45 Visit Number 1 Number of STRUCTURAL METAL WORKER Visits 0 Evaluation Information Evaluation Date 10/30/20 Precautions Precautions Falls risk PT-OP-B Current Condition Start: 10/30/20 08:48 Freq: Status: Active Protocol: Document 10/30/20 15:15 AW (Rec: 10/30/20 14:53 AW [id number]) Current Condition History of Current Condition Onset Date years but with exacerbation in the past 6 months Current Complaints balance, R LE pain, B foot and ankle pain History of Current Condition Nevaeh states she has been experiencing bilateral foot and ankle pain which is chronic for her but worse in the past six months. She notes she has been more sedentary than usual over the past year and has likely been somewhat depressed. Pt sees podiatry for foot concerns including bilateral hallux valgus and bunions. She uses custom orthotics which provide medial arch support and posting of the calcaneus. She also uses MT head bars. Pain is alleviated by rest, heat, and OTC medications. Standing long periods or prolonged activities increase her pain. 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 She still uses a single trekking pole for walking unevent terrain but often forgets. She is now reporting posterior right leg pain (up to 6/10) which is limiting her ambulation tolerance. This pain is ok in sitting, worse with standing or lying in bed. Her sleep has been more disturbed recently and she reports difficulty both falling asleep and staying asleep. Prior Treatments and Tests R TKE March 2020 which rehabbed well. Pt previously had PT aimed at right ankle and balance deficits. Future Testing and Treatments Planned Pt plans to see a neurologist due to short term memory concerns. Treatment Goals Patient/Caregiver Goals Be able to walk better, for longer duration, and without pain so that she can enjoy a planned December trip to [place] and [place]. Current Functional Impairments (Reported) Functional Limitations- Mobility/Gait Can walk a maximum of 15-20 minutes without pain Functional Limitations- Recreation/ Limited in gardening, getting Hobbies up and down from the floor. Personal Factors Other Personal Factors That May Effect (-) short term memory loss Therapy/Recovery (-) self-reported depression (+) supportive family PT-OP-C Subjective Start: 10/30/20 08:48 Freq: Status: Active Protocol: Document 10/30/20 15:15 AW (Rec: 10/30/20 17:41 AW [email or web address]) OP-PT Subjective Patient Comments Patient Comments Pt would like to be able to walk farther with less pain and improved balance Patient Questionnaires Lower Extremity Functional Scale LEFS Score 49 LEFS Impairment 40 to 59% Impaired (Score 32- 47) OP-PT Pain Assessment Pain Assessment Grid Paper Pain Assessment Grid Completed Yes: scanned to EMR PT-OP-D Balance Start: 10/30/20 08:48 Freq: Status: Active Protocol: Document 10/30/20 15:15 AW (Rec: 10/30/20 17:41 AW [email or web address]) OP-PT Balance Assessment Sitting Balance Static Sitting Balance Ability Good Dynamic Sitting Balance Ability Good Standing Balance Static Standing Balance Ability Fair Dynamic Standing Balance Ability Poor Device Used no AD Balance Tests Single Limb Standing Single Limb- Right <1 sec Single Limb- Left <1 sec Semi-Tandem Standing Semi-Tandem Standing Balance unable to get into position or hold position without assist Other Other Balance Tests Performed Functional Gait Assessment: . Scanned to [facility] [place] Fall Scale Copyright Permission PT-OP-G Mobility & Gait Start: 10/30/20 08:48 Freq: Status: Active Protocol: Document 10/30/20 15:15 AW (Rec: 10/30/20 17:41 AW [email or web address]) OP Mobility Evaluation Transfers Sit to Stand requires UE support if surface 20 or lower Functional Movements Squats able to retrieve items from the floor but without significant hip flexion OP Gait Assessment Gait Gait Assistance Required: Independent Distance (Feet) 200 Assistive Devices Assistive Device None Orthotic/Prosthetic Devices or Brace: Yes Gait Deviations General Gait Pattern Antalgic,Flexed Trunk,Lateral Trunk Lean,Wide Based Gait Comments Gait Comments Able to ambulate without assistive device but with decreased foot clearance bilaterally (RLE more affected than LLE), pronated feet ( excessive calcaneal valgus in standing), and decreased LLE stance time. Stair Climbing Evaluation Devices Stair Climbing Assistive Devices Left Railing,Right Railing Technique/Endurance Stair Climbing Direction Ascend and Descend Stair Climbing Technique Step Over Step Number of Steps Climbed 4 Stair Climbing Set # Repetitions (reps) 2 PT-OP-L Special Tests Start: 10/30/20 08:48 Freq: Status: Active Protocol: Document 10/30/20 15:15 AW (Rec: 10/30/20 18:11 AW [email or web address]) Special Tests Lumbar Spine Special Tests Slump Test Results reproduces pain in posterior RLE in least provocative position PT-OP-M Strength Start: 10/30/20 08:48 Freq: Status: Active Protocol: Document 10/30/20 15:15 AW (Rec: 10/30/20 17:50 AW [email or web address]) Hip Strength Hip Manual Muscle Testing Left Flexion (L2) 3+ Fair+ Abduction 3+ Fair+ External Rotation 4 Good Internal Rotation 4 Good Right Flexion (L2) 3+ Fair+ Abduction 3+ Fair+ External Rotation 3+ Fair+ Internal Rotation 4 Good Knee Strength Knee Manual Muscle Testing Right Flexion (S2) 4+ Good+ Extension (L3) 4 Good Left Flexion (S2) 4+ Good+ Extension (L3) 4 Good Ankle/Foot Strength Ankle and Foot Manual Muscle Testing Right Dorsiflexion (L4) 4+ Good+ Plantarflexion (S1) 4 Good Inversion 4 Good Eversion (S1) 4 Good Left Dorsiflexion (L4) 4+ Good+ Plantarflexion (S1) 4 Good Inversion 4 Good Eversion (S1) 4 Good PT-OP-T Assessment and Plan Start: 10/30/20 08:48 Freq: Status: Active Protocol: Document 10/30/20 15:15 AW (Rec: 10/30/20 17:52 AW [email or web address]) Physical Therapy Assessment Rehab Potential Rehabilitation Potential Good Evaluation Complexity Number of Personal Factors/Comorbidities 3 or More Number of Body Systems Impaired 4 or More Clinical Presentation at Evaluation Evolving Impairments Impairments Activity Tolerance,Balance, Functional Activities, Functional Mobility,Gait,Pain, Posture,ROM,Sensation,Soft Tissue Mobility,Strength, Transfers Other Concerns Fall Risk high Goals Three Impairment pain with prolonged standing Short Term Goal (STG) Pt will tolerate walking 30 minutes with 4/10 or less ankle/foot pain STG Duration 6 weeks - 12/11/20 Asbestos Worker Goal (LTG) Pt will walk uneven terrain 30 minutes with 3/10 or less ankle foot pain. LTG Duration 12 weeks - 01/22/21 Two Impairment balance Short Term Goal (STG) Pt will improve Functional Gait Assessment score to 21/30 or better for reduction in falls risk STG Duration 6 weeks - 12/11/20 Asbestos Worker Goal (LTG) Pt will improve FGA score to 24/30 or better for further reduction in falls risk. One Impairment lacks HEP Short Term Goal (STG) Pt will be independent with HEP to support therapy services provided in clinic. STG Duration 4 weeks - 11/27/20 Mcfp Goal (LTG) Pt will be independent with walking program to sustain therapy gains. LTG Duration 12 weeks - 01/22/21 Assessment Summary Assessment Nevaeh is an 80 yo woman presenting to outpatient PT with chronic bilateral foot and ankle pain and complaints of worsening balance/reduced confidence in walking. She has impaired bilateral lower extremity strength affecting her safety in transfers and walking. Hindfoot valgus bilaterally, excessive pronation, bilateral hallux valgus, and diminished light touch sensation in bilateral lower legs all contribute to pain and balance disturbance. Her FGA score of 18/30 indicates high risk of falling (Walker 2007). She would benefit from skilled physical therapy to address these impairments and to improve her ability to participate in gardening, volunteer, and leisure activities. Physical Therapy Plan Frequency and Duration Duration of Treatment 12 weeks Plan of Care Start Date 10/30/20 Plan of Care End Date 01/22/21 Therapeutic Interventions Therapeutic Interventions Balance Training,Gait Training ,Home Exercise Program,Joint Mobilizations,Manual Therapy, Neuromuscular Re-education, Orthotic/Prosthetic Management ,Patient/Caregiver Education, Self-Care/Home Management, Sensory Integration,Soft Tissue Mobilization,Taping, Therapeutic Activities, Therapeutic Exercises Modalities Cold Pack/Ice Massage,Electric Stimulation,Hot Packs Next Visit Focus/Plan Next Note Type Treatment Note Next Visit Plan initiate ankle ROM and strengthening; introduce sciatic glides
--- NOTE | 2020-10-30 18:12 | PT.OPPOC ---
Physical, Occupational & Speech Therapy At [facility] Current Diagnoses Difficulty in walking, not elsewhere classified (10/30/20) Unsteadiness on feet (10/30/20) Abnormal posture (10/30/20) Visit Care Team Role Provider Type Truong Saucedo MD Attending Provider Physician Primary Care Provider Referring Provider Specialty: [facility] Address: [facility] [place] [facility] [place], [place], [facility] Email: [email or web address] Plan Of Care PT-OP-T Assessment and Plan Start: 10/30/20 08:48 Freq: Status: Active Protocol: Document 10/30/20 15:15 AW (Rec: 10/30/20 17:52 AW [email or web address]) Physical Therapy Assessment Rehab Potential Rehabilitation Potential Good Evaluation Complexity Number of Personal Factors/Comorbidities 3 or More Number of Body Systems Impaired 4 or More Clinical Presentation at Evaluation Evolving Impairments Impairments Activity Tolerance,Balance, Functional Activities, Functional Mobility,Gait,Pain, Posture,ROM,Sensation,Soft Tissue Mobility,Strength, Transfers Other Concerns Fall Risk high Goals Three Impairment pain with prolonged standing Short Term Goal (STG) Pt will tolerate walking 30 minutes with 4/10 or less ankle/foot pain STG Duration 6 weeks - 12/11/20 Senior Core Java Developer Goal (LTG) Pt will walk uneven terrain 30 minutes with 3/10 or less ankle foot pain. LTG Duration 12 weeks - 01/22/21 Two Impairment balance Short Term Goal (STG) Pt will improve Functional Gait Assessment score to 21/30 or better for reduction in falls risk STG Duration 6 weeks - 12/11/20 [facility] Goal (LTG) Pt will improve FGA score to 24/30 or better for further reduction in falls risk. One Impairment lacks HEP Short Term Goal (STG) Pt will be independent with HEP to support therapy services provided in clinic. STG Duration 4 weeks - 11/27/20 Senior Core Java Developer Goal (LTG) Pt will be independent with walking program to sustain therapy gains. LTG Duration 12 weeks - 01/22/21 Assessment Summary Assessment Nevaeh is an 80 yo woman presenting to outpatient PT with chronic bilateral foot and ankle pain and complaints of worsening balance/reduced confidence in walking. She has impaired bilateral lower extremity strength affecting her safety in transfers and walking. Hindfoot valgus bilaterally, excessive pronation, bilateral hallux valgus, and diminished light touch sensation in bilateral lower legs all contribute to pain and balance disturbance. Her FGA score of 18/30 indicates high risk of falling (Walker 2007). She would benefit from skilled physical therapy to address these impairments and to improve her ability to participate in gardening, volunteer, and leisure activities. Physical Therapy Plan Frequency and Duration Duration of Treatment 12 weeks Plan of Care Start Date 10/30/20 Plan of Care End Date 01/22/21 Therapeutic Interventions Therapeutic Interventions Balance Training,Gait Training ,Home Exercise Program,Joint Mobilizations,Manual Therapy, Neuromuscular Re-education, Orthotic/Prosthetic Management ,Patient/Caregiver Education, Self-Care/Home Management, Sensory Integration,Soft Tissue Mobilization,Taping, Therapeutic Activities, Therapeutic Exercises Modalities Cold Pack/Ice Massage,Electric Stimulation,Hot Packs Next Visit Focus/Plan Next Note Type Treatment Note Next Visit Plan initiate ankle ROM and strengthening; introduce sciatic glides Plan of Care Dates Plan of Care Start Date 10/30/20 Plan of Care End Date 01/22/21 Electronically Signed by: Teressa Zeng PT 10/30/20 [id number] Please Sign and Return: I have reviewed this Plan of Care and certify that the skilled therapy services above are required to meet the patient?s needs. Physician Signature Date Printed Name and Credentials Clinical Instructor Signature Printed Name and Credentials
--- NOTE | 2020-11-01 14:32 | PT.OTN ---
Current Diagnoses Difficulty in walking, not elsewhere classified (11/01/20) Unsteadiness on feet (11/01/20) Abnormal posture (11/01/20) Physical Therapy Treatment Note PT-OP-A Visit Information Start: 10/30/20 08:48 Freq: Status: Active Protocol: Document 11/01/20 13:47 SP (Rec: 11/01/20 16:15 SP [id number]) Out-Patient Physical Therapy Visit Information Visit Information Visit Type Treatment Note Visit Start Time 13:47 Visit Stop Time 14:32 Total Visit Minutes 45 Visit Number 2 Number of CANTEEN MANAGER Visits 1 Evaluation Information Evaluation Date 10/30/20 Precautions Precautions Falls risk PT-OP-B Current Condition Start: 10/30/20 08:48 Freq: Status: Active Protocol: Document 10/30/20 15:15 AW (Rec: 10/30/20 14:53 AW [id number]) Current Condition History of Current Condition Onset Date years but with exacerbation in the past 6 months Current Complaints balance, R LE pain, B foot and ankle pain History of Current Condition Nevaeh states she has been experiencing bilateral foot and ankle pain which is chronic for her but worse in the past six months. She notes she has been more sedentary than usual over the past year and has likely been somewhat depressed. Pt sees podiatry for foot concerns including bilateral hallux valgus and bunions. She uses custom orthotics which provide medial arch support and posting of the calcaneus. She also uses MT head bars. Pain is alleviated by rest, heat, and OTC medications. Standing long periods or prolonged activities increase her pain. 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 She still uses a single trekking pole for walking unevent terrain but often forgets. She is now reporting posterior right leg pain (up to 6/10) which is limiting her ambulation tolerance. This pain is ok in sitting, worse with standing or lying in bed. Her sleep has been more disturbed recently and she reports difficulty both falling asleep and staying asleep. Prior Treatments and Tests R TKE March 2020 which rehabbed well. Pt previously had PT aimed at right ankle and balance deficits. Future Testing and Treatments Planned Pt plans to see a neurologist due to short term memory concerns. Treatment Goals Patient/Caregiver Goals Be able to walk better, for longer duration, and without pain so that she can enjoy a planned December trip to [place] and [place]. Current Functional Impairments (Reported) Functional Limitations- Mobility/Gait Can walk a maximum of 15-20 minutes without pain Functional Limitations- Recreation/ Limited in gardening, getting Hobbies up and down from the floor. Personal Factors Other Personal Factors That May Effect (-) short term memory loss Therapy/Recovery (-) self-reported depression (+) supportive family PT-OP-C Subjective Start: 10/30/20 08:48 Freq: Status: Active Protocol: Document 11/01/20 13:47 SP (Rec: 11/01/20 16:15 SP [id number]) OP-PT Subjective Patient Comments Patient Comments Pt stated felt fine after last tx. She reviewed has bottom of B feet pain, has bunion that is causing toes to returns clerk bilaterally and balance not as good as can be. PT-OP-D Balance Start: 10/30/20 08:48 Freq: Status: Active Protocol: Document 10/30/20 15:15 AW (Rec: 10/30/20 17:41 AW [email or web address]) OP-PT Balance Assessment Sitting Balance Static Sitting Balance Ability Good Dynamic Sitting Balance Ability Good Standing Balance Static Standing Balance Ability Fair Dynamic Standing Balance Ability Poor Device Used no AD Balance Tests Single Limb Standing Single Limb- Right <1 sec Single Limb- Left <1 sec Semi-Tandem Standing Semi-Tandem Standing Balance unable to get into position or hold position without assist Other Other Balance Tests Performed Functional Gait Assessment: . Scanned to [facility] [place] Fall Scale Copyright Permission PT-OP-G Mobility & Gait Start: 10/30/20 08:48 Freq: Status: Active Protocol: Document 10/30/20 15:15 AW (Rec: 10/30/20 17:41 AW [email or web address]) OP Mobility Evaluation Transfers Sit to Stand requires UE support if surface 20 or lower Functional Movements Squats able to retrieve items from the floor but without significant hip flexion OP Gait Assessment Gait Gait Assistance Required: Independent Distance (Feet) 200 Assistive Devices Assistive Device None Orthotic/Prosthetic Devices or Brace: Yes Gait Deviations General Gait Pattern Antalgic,Flexed Trunk,Lateral Trunk Lean,Wide Based Gait Comments Gait Comments Able to ambulate without assistive device but with decreased foot clearance bilaterally (RLE more affected than LLE), pronated feet ( excessive calcaneal valgus in standing), and decreased LLE stance time. Stair Climbing Evaluation Devices Stair Climbing Assistive Devices Left Railing,Right Railing Technique/Endurance Stair Climbing Direction Ascend and Descend Stair Climbing Technique Step Over Step Number of Steps Climbed 4 Stair Climbing Set # Repetitions (reps) 2 PT-OP-L Special Tests Start: 10/30/20 08:48 Freq: Status: Active Protocol: Document 10/30/20 15:15 AW (Rec: 10/30/20 18:11 AW [email or web address]) Special Tests Lumbar Spine Special Tests Slump Test Results reproduces pain in posterior RLE in least provocative position PT-OP-M Strength Start: 10/30/20 08:48 Freq: Status: Active Protocol: Document 10/30/20 15:15 AW (Rec: 10/30/20 17:50 AW [email or web address]) Hip Strength Hip Manual Muscle Testing Left Flexion (L2) 3+ Fair+ Abduction 3+ Fair+ External Rotation 4 Good Internal Rotation 4 Good Right Flexion (L2) 3+ Fair+ Abduction 3+ Fair+ External Rotation 3+ Fair+ Internal Rotation 4 Good Knee Strength Knee Manual Muscle Testing Right Flexion (S2) 4+ Good+ Extension (L3) 4 Good Left Flexion (S2) 4+ Good+ Extension (L3) 4 Good Ankle/Foot Strength Ankle and Foot Manual Muscle Testing Right Dorsiflexion (L4) 4+ Good+ Plantarflexion (S1) 4 Good Inversion 4 Good Eversion (S1) 4 Good Left Dorsiflexion (L4) 4+ Good+ Plantarflexion (S1) 4 Good Inversion 4 Good Eversion (S1) 4 Good PT-OP-Q Treatments Start: 10/30/20 08:48 Freq: Status: Active Protocol: Document 11/01/20 13:47 SP (Rec: 11/01/20 16:15 SP [id number]) Cardio Equipment Bicycle (Upright) Duration (Minutes) 6 Resistance 8 Seat Position 9 Other 1.1miles Therapeutic Exercises Supine Exercises sciatic nerve floss Supine Exercise Name clasp hands behind upper thigh , R knee ext w/ ankle pump Side bilateral Resistance added to HEP Reps/Minutes 2x10 each LE Comments good form, pain free range PF stretch Supine Exercise Name ankle over opp knee and guided knee toward opp shld Side right Reps/Minutes 2 min Comments better than grasping behind L thigh and pull B LE toward chest- pain post R intrinic contraction Supine Exercise Name assess if beneficial next tx Sitting Exercises ball roll plantar fascia Sitting Exercise Name added to HEP Side bilateral Equipment Used racquetball Reps/Minutes 2 min Comments good feeling response 4 way ankle Sitting Exercise Name IV, EV, PF, DF- added to HEP Side bilateral Resistance Tb #2 Reps/Minutes x10 each Comments min cues for set up and direction Standing Exercises STMs ball roll wall Standing Exercise Name gluts- added to HEP Side right Equipment Used racquetball Reps/Minutes 30 sec Comments reported sensitive but feels like will loosen up glut. Manual Therapy Treatment Soft Tissue Mobilization STMs Body Location R pirformis Mobilization Type Strumming,Sustained Pressure, Other Intensity/Depth Moderate Body Position Prone Comments MWM hip IR/ERd plantar fascia STMs Body Location B Mobilization Type Instrument Assisted,Myofascial Release,Other Intensity/Depth Moderate Body Position Supine Comments manual and instruction on self STMs using racquetball PT-OP-T Assessment and Plan Start: 10/30/20 08:48 Freq: Status: Active Protocol: Document 11/01/20 13:47 SP (Rec: 11/01/20 16:15 SP [id number]) Physical Therapy Assessment Goals Three Impairment pain with prolonged standing Short Term Goal (STG) Pt will tolerate walking 30 minutes with 4/10 or less ankle/foot pain STG Duration 6 weeks - 12/11/20 Jail Goal (LTG) Pt will walk uneven terrain 30 minutes with 3/10 or less ankle foot pain. LTG Duration 12 weeks - 01/22/21 Two Impairment balance Short Term Goal (STG) Pt will improve Functional Gait Assessment score to 21/30 or better for reduction in falls risk STG Duration 6 weeks - 12/11/20 Italian Teacher Goal (LTG) Pt will improve FGA score to 24/30 or better for further reduction in falls risk. One Impairment lacks HEP Short Term Goal (STG) Pt will be independent with HEP to support therapy services provided in clinic. STG Duration 4 weeks - 11/27/20 Jail Goal (LTG) Pt will be independent with walking program to sustain therapy gains. LTG Duration 12 weeks - 01/22/21 Assessment Summary Assessment Pt had good response to manual and instruction on self STMs with benefical feedback. Initiated ankle ROM> strengthening using TB with no adverse affects, cued for proper set up, supine stretching with good recall from previous learned. Provided hand outs for recall and proper form. Pt stated felt better end of tx and what worked on is a good start. Physical Therapy Plan Frequency and Duration Duration of Treatment 12 weeks Plan of Care Start Date 10/30/20 Plan of Care End Date 01/22/21 Therapeutic Interventions Therapeutic Interventions Balance Training,Gait Training ,Home Exercise Program,Joint Mobilizations,Manual Therapy, Neuromuscular Re-education, Orthotic/Prosthetic Management ,Patient/Caregiver Education, Self-Care/Home Management, Sensory Integration,Soft Tissue Mobilization,Taping, Therapeutic Activities, Therapeutic Exercises Modalities Cold Pack/Ice Massage,Electric Stimulation,Hot Packs Next Visit Focus/Plan Next Note Type Treatment Note Next Visit Plan Review HEP. POC: initiate ankle ROM and strengthening; introduce sciatic glides
--- NOTE | 2020-11-05 13:45 | PT.OTN ---
Current Diagnoses Difficulty in walking, not elsewhere classified (11/05/20) Unsteadiness on feet (11/05/20) Abnormal posture (11/05/20) Physical Therapy Treatment Note PT-OP-A Visit Information Start: 10/30/20 08:48 Freq: Status: Active Protocol: Document 11/05/20 13:00 SP (Rec: 11/05/20 16:03 SP [id number]) Out-Patient Physical Therapy Visit Information Visit Information Visit Type Treatment Note Visit Start Time 13:00 Visit Stop Time 13:45 Total Visit Minutes 45 Visit Number 3 Number of ASSISTANT PRESS OPERATOR Visits 2 Evaluation Information Evaluation Date 10/30/20 Precautions Precautions Falls risk PT-OP-B Current Condition Start: 10/30/20 08:48 Freq: Status: Active Protocol: Document 10/30/20 15:15 AW (Rec: 10/30/20 14:53 AW [id number]) Current Condition History of Current Condition Onset Date years but with exacerbation in the past 6 months Current Complaints balance, R LE pain, B foot and ankle pain History of Current Condition Nevaeh states she has been experiencing bilateral foot and ankle pain which is chronic for her but worse in the past six months. She notes she has been more sedentary than usual over the past year and has likely been somewhat depressed. Pt sees podiatry for foot concerns including bilateral hallux valgus and bunions. She uses custom orthotics which provide medial arch support and posting of the calcaneus. She also uses MT head bars. Pain is alleviated by rest, heat, and OTC medications. Standing long periods or prolonged activities increase her pain. 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 She still uses a single trekking pole for walking unevent terrain but often forgets. She is now reporting posterior right leg pain (up to 6/10) which is limiting her ambulation tolerance. This pain is ok in sitting, worse with standing or lying in bed. Her sleep has been more disturbed recently and she reports difficulty both falling asleep and staying asleep. Prior Treatments and Tests R TKE March 2020 which rehabbed well. Pt previously had PT aimed at right ankle and balance deficits. Future Testing and Treatments Planned Pt plans to see a neurologist due to short term memory concerns. Treatment Goals Patient/Caregiver Goals Be able to walk better, for longer duration, and without pain so that she can enjoy a planned December trip to [place] and [place]. Current Functional Impairments (Reported) Functional Limitations- Mobility/Gait Can walk a maximum of 15-20 minutes without pain Functional Limitations- Recreation/ Limited in gardening, getting Hobbies up and down from the floor. Personal Factors Other Personal Factors That May Effect (-) short term memory loss Therapy/Recovery (-) self-reported depression (+) supportive family PT-OP-C Subjective Start: 10/30/20 08:48 Freq: Status: Active Protocol: Document 11/05/20 13:00 SP (Rec: 11/05/20 16:03 SP [id number]) OP-PT Subjective Patient Comments Patient Comments Pt stated responded well to activities in tx and compliant with ball rolling and ankle exercises instructed but stated lost her papers so can review to be sure doing correctly. She stated the pain into her leg is getting better. Pt stated she left her jacket at a store volunteered this am and needs to go back over to pick it up. Patient Reported Progress Improving PT-OP-D Balance Start: 10/30/20 08:48 Freq: Status: Active Protocol: Document 10/30/20 15:15 AW (Rec: 10/30/20 17:41 AW [email or web address]) OP-PT Balance Assessment Sitting Balance Static Sitting Balance Ability Good Dynamic Sitting Balance Ability Good Standing Balance Static Standing Balance Ability Fair Dynamic Standing Balance Ability Poor Device Used no AD Balance Tests Single Limb Standing Single Limb- Right <1 sec Single Limb- Left <1 sec Semi-Tandem Standing Semi-Tandem Standing Balance unable to get into position or hold position without assist Other Other Balance Tests Performed Functional Gait Assessment: . Scanned to [facility] [place] Fall Scale Copyright Permission PT-OP-G Mobility & Gait Start: 10/30/20 08:48 Freq: Status: Active Protocol: Document 10/30/20 15:15 AW (Rec: 10/30/20 17:41 AW [email or web address]) OP Mobility Evaluation Transfers Sit to Stand requires UE support if surface 20 or lower Functional Movements Squats able to retrieve items from the floor but without significant hip flexion OP Gait Assessment Gait Gait Assistance Required: Independent Distance (Feet) 200 Assistive Devices Assistive Device None Orthotic/Prosthetic Devices or Brace: Yes Gait Deviations General Gait Pattern Antalgic,Flexed Trunk,Lateral Trunk Lean,Wide Based Gait Comments Gait Comments Able to ambulate without assistive device but with decreased foot clearance bilaterally (RLE more affected than LLE), pronated feet ( excessive calcaneal valgus in standing), and decreased LLE stance time. Stair Climbing Evaluation Devices Stair Climbing Assistive Devices Left Railing,Right Railing Technique/Endurance Stair Climbing Direction Ascend and Descend Stair Climbing Technique Step Over Step Number of Steps Climbed 4 Stair Climbing Set # Repetitions (reps) 2 PT-OP-L Special Tests Start: 10/30/20 08:48 Freq: Status: Active Protocol: Document 10/30/20 15:15 AW (Rec: 10/30/20 18:11 AW [email or web address]) Special Tests Lumbar Spine Special Tests Slump Test Results reproduces pain in posterior RLE in least provocative position PT-OP-M Strength Start: 10/30/20 08:48 Freq: Status: Active Protocol: Document 10/30/20 15:15 AW (Rec: 10/30/20 17:50 AW [email or web address]) Hip Strength Hip Manual Muscle Testing Left Flexion (L2) 3+ Fair+ Abduction 3+ Fair+ External Rotation 4 Good Internal Rotation 4 Good Right Flexion (L2) 3+ Fair+ Abduction 3+ Fair+ External Rotation 3+ Fair+ Internal Rotation 4 Good Knee Strength Knee Manual Muscle Testing Right Flexion (S2) 4+ Good+ Extension (L3) 4 Good Left Flexion (S2) 4+ Good+ Extension (L3) 4 Good Ankle/Foot Strength Ankle and Foot Manual Muscle Testing Right Dorsiflexion (L4) 4+ Good+ Plantarflexion (S1) 4 Good Inversion 4 Good Eversion (S1) 4 Good Left Dorsiflexion (L4) 4+ Good+ Plantarflexion (S1) 4 Good Inversion 4 Good Eversion (S1) 4 Good PT-OP-Q Treatments Start: 10/30/20 08:48 Freq: Status: Active Protocol: Document 11/05/20 13:00 SP (Rec: 11/05/20 16:03 SP [id number]) Cardio Equipment Bicycle (Upright) Duration (Minutes) 7 Resistance 8 Seat Position 9 Other 1.26miles Therapeutic Exercises Supine Exercises sciatic nerve floss Supine Exercise Name clasp hands behind upper thigh , R knee ext w/ ankle pump Side bilateral Resistance added to HEP Reps/Minutes 2x10 each LE Comments good form, pain free range bridges Supine Exercise Name added to HEP (past ex review) Resistance AROM Reps/Minutes 2 x 5 reps Comments weakness but fair TA fac and sumaya range. PF stretch Supine Exercise Name ankle over opp knee and knee toward opp shld (supine today) Side right Reps/Minutes 30 x2 Comments pain free intrinic contraction Supine Exercise Name assess if beneficial next tx Sidelying Exercises clam shells Sidelying Exercise Name added to HEP (past ex review) Side bilateral Resistance AROM Reps/Minutes x 10 reps Comments needed cues to keep the pelvic forward and still Sitting Exercises ball roll plantar fascia Sitting Exercise Name discussed is doing at home and didn't feel needed at tx time Side bilateral Equipment Used racquetball Comments good feeling response 4 way ankle Sitting Exercise Name IV, EV, PF, DF- added to HEP Side bilateral Resistance Tb #2 Reps/Minutes x10 each Comments mod cues for set up and direction movement Standing Exercises band walk Standing Exercise Name lateral (in PT only) Resistance YTB around ankles Equipment Used near rail, contact PRN for balance Reps/Minutes 20 ft x2 laps Comments pt able to don/ doff TB, occasional cue clear trail LE Self-Care/Home Management Treatment Education Patient Education Home Exercise Program Other Education Extra time spent on HEP on set up and HEP review, reprinted HEP hand outs, misplaced previous given (copy in ASSISTANT PRESS OPERATOR drawer) due to scanned to small to read when reprinted. PT-OP-T Assessment and Plan Start: 10/30/20 08:48 Freq: Status: Active Protocol: Document 11/05/20 13:00 SP (Rec: 11/05/20 16:03 SP [id number]) Physical Therapy Assessment Goals Three Impairment pain with prolonged standing Short Term Goal (STG) Pt will tolerate walking 30 minutes with 4/10 or less ankle/foot pain STG Duration 6 weeks - 12/11/20 Hand Ii Cutter Goal (LTG) Pt will walk uneven terrain 30 minutes with 3/10 or less ankle foot pain. LTG Duration 12 weeks - 01/22/21 Two Impairment balance Short Term Goal (STG) Pt will improve Functional Gait Assessment score to 21/30 or better for reduction in falls risk STG Duration 6 weeks - 12/11/20 Intermediate Goal (LTG) Pt will improve FGA score to 24/30 or better for further reduction in falls risk. One Impairment lacks HEP Short Term Goal (STG) Pt will be independent with HEP to support therapy services provided in clinic. STG Duration 4 weeks - 11/27/20 Intermediate Goal (LTG) Pt will be independent with walking program to sustain therapy gains. LTG Duration 12 weeks - 01/22/21 Assessment Summary Assessment Pt reported misplaced her exercise papers and hard time figuring out how to use the TB. Tx focused on HEP set up and review, reprinted HEP and used for visual recall, suggested to place in area will perform. Mod cues for set up for 4 way ankle and direction movement. Pt responded well to HEP review with no pain or adverse reactions. Will continue to review HEP in next tx, responded well to band walk initiated for in tx use at this time for functional strengthening. Physical Therapy Plan Frequency and Duration Duration of Treatment 12 weeks Plan of Care Start Date 10/30/20 Plan of Care End Date 01/22/21 Therapeutic Interventions Therapeutic Interventions Balance Training,Gait Training ,Home Exercise Program,Joint Mobilizations,Manual Therapy, Neuromuscular Re-education, Orthotic/Prosthetic Management ,Patient/Caregiver Education, Self-Care/Home Management, Sensory Integration,Soft Tissue Mobilization,Taping, Therapeutic Activities, Therapeutic Exercises Modalities Cold Pack/Ice Massage,Electric Stimulation,Hot Packs Next Visit Focus/Plan Next Note Type Treatment Note Next Visit Plan Review HEP, pt to bring in her TB and exercise papers (copy in ASSISTANT PRESS OPERATOR drawer). Not to give to many exercises for home at this time. POC: initiate ankle ROM and strengthening; introduce sciatic glides, progress LE strengthening and balance.
--- NOTE | 2020-11-07 13:46 | PT.OTN ---
Current Diagnoses Difficulty in walking, not elsewhere classified (11/07/20) Unsteadiness on feet (11/07/20) Abnormal posture (11/07/20) Physical Therapy Treatment Note PT-OP-A Visit Information Start: 10/30/20 08:48 Freq: Status: Active Protocol: Document 11/07/20 13:00 SP (Rec: 11/07/20 14:07 SP [id number]) Out-Patient Physical Therapy Visit Information Visit Information Visit Type Treatment Note Visit Start Time 13:01 Visit Stop Time 13:46 Total Visit Minutes 45 Visit Number 4 Number of KENNEL MANAGER Visits 3 Evaluation Information Evaluation Date 10/30/20 Precautions Precautions Falls risk PT-OP-B Current Condition Start: 10/30/20 08:48 Freq: Status: Active Protocol: Document 10/30/20 15:15 AW (Rec: 10/30/20 14:53 AW [id number]) Current Condition History of Current Condition Onset Date years but with exacerbation in the past 6 months Current Complaints balance, R LE pain, B foot and ankle pain History of Current Condition Nevaeh states she has been experiencing bilateral foot and ankle pain which is chronic for her but worse in the past six months. She notes she has been more sedentary than usual over the past year and has likely been somewhat depressed. Pt sees podiatry for foot concerns including bilateral hallux valgus and bunions. She uses custom orthotics which provide medial arch support and posting of the calcaneus. She also uses MT head bars. Pain is alleviated by rest, heat, and OTC medications. Standing long periods or prolonged activities increase her pain. 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 She still uses a single trekking pole for walking unevent terrain but often forgets. She is now reporting posterior right leg pain (up to 6/10) which is limiting her ambulation tolerance. This pain is ok in sitting, worse with standing or lying in bed. Her sleep has been more disturbed recently and she reports difficulty both falling asleep and staying asleep. Prior Treatments and Tests R TKE March 2020 which rehabbed well. Pt previously had PT aimed at right ankle and balance deficits. Future Testing and Treatments Planned Pt plans to see a neurologist due to short term memory concerns. Treatment Goals Patient/Caregiver Goals Be able to walk better, for longer duration, and without pain so that she can enjoy a planned December trip to [place] and [place]. Current Functional Impairments (Reported) Functional Limitations- Mobility/Gait Can walk a maximum of 15-20 minutes without pain Functional Limitations- Recreation/ Limited in gardening, getting Hobbies up and down from the floor. Personal Factors Other Personal Factors That May Effect (-) short term memory loss Therapy/Recovery (-) self-reported depression (+) supportive family PT-OP-C Subjective Start: 10/30/20 08:48 Freq: Status: Active Protocol: Document 11/07/20 13:00 SP (Rec: 11/07/20 14:07 SP [id number]) OP-PT Subjective Patient Comments Patient Comments Pt stated has family in town and will be needing to cancel some appts to drive her son to [facility] then go back later and pick him up. Pt stated is doing the ball rolling glut at wall and PT-OP-D Balance Start: 10/30/20 08:48 Freq: Status: Active Protocol: Document 10/30/20 15:15 AW (Rec: 10/30/20 17:41 AW [email or web address]) OP-PT Balance Assessment Sitting Balance Static Sitting Balance Ability Good Dynamic Sitting Balance Ability Good Standing Balance Static Standing Balance Ability Fair Dynamic Standing Balance Ability Poor Device Used no AD Balance Tests Single Limb Standing Single Limb- Right <1 sec Single Limb- Left <1 sec Semi-Tandem Standing Semi-Tandem Standing Balance unable to get into position or hold position without assist Other Other Balance Tests Performed Functional Gait Assessment: . Scanned to [facility] [place] Fall Scale Copyright Permission PT-OP-G Mobility & Gait Start: 10/30/20 08:48 Freq: Status: Active Protocol: Document 10/30/20 15:15 AW (Rec: 10/30/20 17:41 AW [email or web address]) OP Mobility Evaluation Transfers Sit to Stand requires UE support if surface 20 or lower Functional Movements Squats able to retrieve items from the floor but without significant hip flexion OP Gait Assessment Gait Gait Assistance Required: Independent Distance (Feet) 200 Assistive Devices Assistive Device None Orthotic/Prosthetic Devices or Brace: Yes Gait Deviations General Gait Pattern Antalgic,Flexed Trunk,Lateral Trunk Lean,Wide Based Gait Comments Gait Comments Able to ambulate without assistive device but with decreased foot clearance bilaterally (RLE more affected than LLE), pronated feet ( excessive calcaneal valgus in standing), and decreased LLE stance time. Stair Climbing Evaluation Devices Stair Climbing Assistive Devices Left Railing,Right Railing Technique/Endurance Stair Climbing Direction Ascend and Descend Stair Climbing Technique Step Over Step Number of Steps Climbed 4 Stair Climbing Set # Repetitions (reps) 2 PT-OP-L Special Tests Start: 10/30/20 08:48 Freq: Status: Active Protocol: Document 10/30/20 15:15 AW (Rec: 10/30/20 18:11 AW [email or web address]) Special Tests Lumbar Spine Special Tests Slump Test Results reproduces pain in posterior RLE in least provocative position PT-OP-M Strength Start: 10/30/20 08:48 Freq: Status: Active Protocol: Document 10/30/20 15:15 AW (Rec: 10/30/20 17:50 AW [email or web address]) Hip Strength Hip Manual Muscle Testing Left Flexion (L2) 3+ Fair+ Abduction 3+ Fair+ External Rotation 4 Good Internal Rotation 4 Good Right Flexion (L2) 3+ Fair+ Abduction 3+ Fair+ External Rotation 3+ Fair+ Internal Rotation 4 Good Knee Strength Knee Manual Muscle Testing Right Flexion (S2) 4+ Good+ Extension (L3) 4 Good Left Flexion (S2) 4+ Good+ Extension (L3) 4 Good Ankle/Foot Strength Ankle and Foot Manual Muscle Testing Right Dorsiflexion (L4) 4+ Good+ Plantarflexion (S1) 4 Good Inversion 4 Good Eversion (S1) 4 Good Left Dorsiflexion (L4) 4+ Good+ Plantarflexion (S1) 4 Good Inversion 4 Good Eversion (S1) 4 Good PT-OP-Q Treatments Start: 10/30/20 08:48 Freq: Status: Active Protocol: Document 11/07/20 13:00 SP (Rec: 11/07/20 14:07 SP [id number]) Cardio Equipment Bicycle (Upright) Duration (Minutes) 7 Resistance 8 Seat Position 9 Other miles Therapeutic Exercises Supine Exercises bridges Supine Exercise Name added to HEP (past ex review) Resistance AROM Reps/Minutes 5 sec hold x 10 reps Comments weakness but fair TA fac and sumaya range. PF stretch Supine Exercise Name ankle over opp knee and knee toward opp shld (supine today) Side bilateral Reps/Minutes 30 x2 (reviewed HEP: supine R, seated L) Comments pain free Sidelying Exercises clam shells Sidelying Exercise Name HEP review Side bilateral Resistance AROM Reps/Minutes x 10 reps Comments needed cues to keep the pelvic forward and still Sitting Exercises ball roll plantar fascia Side bilateral Equipment Used racquetball to light>golf ball Comments good feeling response 4 way ankle Sitting Exercise Name IV, EV, PF, DF- added to HEP Side bilateral Resistance Tb #2> #4 all directions Reps/Minutes x10 each Comments min cues for set up and direction movement Standing Exercises band walk Standing Exercise Name lateral- added to HEP Resistance YTB around upper duff Equipment Used near rail, contact PRN for balance Reps/Minutes 20 ft x3 laps Comments pt able to don/ doff TB, occasional cue clear trail LE step ups on 4 step Standing Exercise Name step ups on 4 step- added to HEP Resistance AROM Equipment Used light rail contact balance support as needed Reps/Minutes 2x 10 reps Comments cued for patterning Neuro Re-Education Treatment Balance Activities Hurdles Details Hurdles Fwd ( PT only) Surface carpet Equipment 1 laith 2x5 reps each LE, then alternating 6 hurdles Reps/Duration 3 laps Comments 1 hand on rail intermittently as well as gait belt for assistance for balance step over back. Required light ACTIVITIES AIDE for alternate stepping forward 2 laps PT-OP-T Assessment and Plan Start: 10/30/20 08:48 Freq: Status: Active Protocol: Document 11/07/20 13:00 SP (Rec: 11/07/20 14:07 SP [id number]) Physical Therapy Assessment Goals Three Impairment pain with prolonged standing Short Term Goal (STG) Pt will tolerate walking 30 minutes with 4/10 or less ankle/foot pain STG Duration 6 weeks - 12/11/20 Wastewater Operator Goal (LTG) Pt will walk uneven terrain 30 minutes with 3/10 or less ankle foot pain. LTG Duration 12 weeks - 01/22/21 Two Impairment balance Short Term Goal (STG) Pt will improve Functional Gait Assessment score to 21/30 or better for reduction in falls risk STG Duration 6 weeks - 12/11/20 Detention Goal (LTG) Pt will improve FGA score to 24/30 or better for further reduction in falls risk. One Impairment lacks HEP Short Term Goal (STG) Pt will be independent with HEP to support therapy services provided in clinic. STG Duration 4 weeks - 11/27/20 Wastewater Operator Goal (LTG) Pt will be independent with walking program to sustain therapy gains. LTG Duration 12 weeks - 01/22/21 Assessment Summary Assessment HEP review seated with minimal cues for ankle TB placement for strengthening and reassured movement directioning while used hand outs for recall, Independent with supine ex. Band walks improved controlled eccentric return during side stepping contact rail as needed, no LOB w/ band at shins so added to HEP. Initiated step ups with intermittent rail contact for balance, cues for patterning- added to HEP and will perform at daughter's use when visits. Pt required low Lucila during laith stationary and alternate stepping today. Will continue to progress balance during futher tx as is a goal of pt's. Physical Therapy Plan Frequency and Duration Duration of Treatment 12 weeks Plan of Care Start Date 10/30/20 Plan of Care End Date 01/22/21 Therapeutic Interventions Therapeutic Interventions Balance Training,Gait Training ,Home Exercise Program,Joint Mobilizations,Manual Therapy, Neuromuscular Re-education, Orthotic/Prosthetic Management ,Patient/Caregiver Education, Self-Care/Home Management, Sensory Integration,Soft Tissue Mobilization,Taping, Therapeutic Activities, Therapeutic Exercises Modalities Cold Pack/Ice Massage,Electric Stimulation,Hot Packs Next Visit Focus/Plan Next Note Type Treatment Note Next Visit Plan Review HEP: band walk, step ups. Continue progress balance and functional LE strengthening.
--- NOTE | 2020-11-11 10:32 | PT.OTN ---
Current Diagnoses Difficulty in walking, not elsewhere classified (11/11/20) Unsteadiness on feet (11/11/20) Abnormal posture (11/11/20) Physical Therapy Treatment Note PT-OP-A Visit Information Start: 10/30/20 08:48 Freq: Status: Active Protocol: Document 11/11/20 09:48 SP (Rec: 11/11/20 11:48 SP [id number]) Out-Patient Physical Therapy Visit Information Visit Information Visit Type Treatment Note Visit Note Next visit give feedback to goals for 6th visit: perform 6MWT and ask ankle pain reassessment, FGA, didn't get to last tx. Visit Start Time 09:48 Visit Stop Time 10:32 Total Visit Minutes 44 Visit Number 5 Number of [employer] Visits 4 Evaluation Information Evaluation Date 10/30/20 Precautions Precautions Falls risk PT-OP-B Current Condition Start: 10/30/20 08:48 Freq: Status: Active Protocol: Document 10/30/20 15:15 AW (Rec: 10/30/20 14:53 AW [id number]) Current Condition History of Current Condition Onset Date years but with exacerbation in the past 6 months Current Complaints balance, R LE pain, B foot and ankle pain History of Current Condition Nevaeh states she has been experiencing bilateral foot and ankle pain which is chronic for her but worse in the past six months. She notes she has been more sedentary than usual over the past year and has likely been somewhat depressed. Pt sees podiatry for foot concerns including bilateral hallux valgus and bunions. She uses custom orthotics which provide medial arch support and posting of the calcaneus. She also uses MT head bars. Pain is alleviated by rest, heat, and OTC medications. Standing long periods or prolonged activities increase her pain. 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 She still uses a single trekking pole for walking unevent terrain but often forgets. She is now reporting posterior right leg pain (up to 6/10) which is limiting her ambulation tolerance. This pain is ok in sitting, worse with standing or lying in bed. Her sleep has been more disturbed recently and she reports difficulty both falling asleep and staying asleep. Prior Treatments and Tests R TKE March 2020 which rehabbed well. Pt previously had PT aimed at right ankle and balance deficits. Future Testing and Treatments Planned Pt plans to see a neurologist due to short term memory concerns. Treatment Goals Patient/Caregiver Goals Be able to walk better, for longer duration, and without pain so that she can enjoy a planned December trip to [place] and [place]. Current Functional Impairments (Reported) Functional Limitations- Mobility/Gait Can walk a maximum of 15-20 minutes without pain Functional Limitations- Recreation/ Limited in gardening, getting Hobbies up and down from the floor. Personal Factors Other Personal Factors That May Effect (-) short term memory loss Therapy/Recovery (-) self-reported depression (+) supportive family PT-OP-C Subjective Start: 10/30/20 08:48 Freq: Status: Active Protocol: Document 11/11/20 09:48 SP (Rec: 11/11/20 11:48 SP [id number]) OP-PT Subjective Patient Comments Patient Comments Pt stated [place] to [place] off her son to visit past employer and got back earlier enough to keep today's appt cancelled last week. Is going to make appt to material handler floorperson to reassess 2nd toe calus affecting comfort walking again, she states usually has some worn down and helps. PT-OP-D Balance Start: 10/30/20 08:48 Freq: Status: Active Protocol: Document 10/30/20 15:15 AW (Rec: 10/30/20 17:41 AW [email or web address]) OP-PT Balance Assessment Sitting Balance Static Sitting Balance Ability Good Dynamic Sitting Balance Ability Good Standing Balance Static Standing Balance Ability Fair Dynamic Standing Balance Ability Poor Device Used no AD Balance Tests Single Limb Standing Single Limb- Right <1 sec Single Limb- Left <1 sec Semi-Tandem Standing Semi-Tandem Standing Balance unable to get into position or hold position without assist Other Other Balance Tests Performed Functional Gait Assessment: . Scanned to [facility] [place] Fall Scale Copyright Permission PT-OP-G Mobility & Gait Start: 10/30/20 08:48 Freq: Status: Active Protocol: Document 10/30/20 15:15 AW (Rec: 10/30/20 17:41 AW [email or web address]) OP Mobility Evaluation Transfers Sit to Stand requires UE support if surface 20 or lower Functional Movements Squats able to retrieve items from the floor but without significant hip flexion OP Gait Assessment Gait Gait Assistance Required: Independent Distance (Feet) 200 Assistive Devices Assistive Device None Orthotic/Prosthetic Devices or Brace: Yes Gait Deviations General Gait Pattern Antalgic,Flexed Trunk,Lateral Trunk Lean,Wide Based Gait Comments Gait Comments Able to ambulate without assistive device but with decreased foot clearance bilaterally (RLE more affected than LLE), pronated feet ( excessive calcaneal valgus in standing), and decreased LLE stance time. Stair Climbing Evaluation Devices Stair Climbing Assistive Devices Left Railing,Right Railing Technique/Endurance Stair Climbing Direction Ascend and Descend Stair Climbing Technique Step Over Step Number of Steps Climbed 4 Stair Climbing Set # Repetitions (reps) 2 PT-OP-L Special Tests Start: 10/30/20 08:48 Freq: Status: Active Protocol: Document 10/30/20 15:15 AW (Rec: 10/30/20 18:11 AW [email or web address]) Special Tests Lumbar Spine Special Tests Slump Test Results reproduces pain in posterior RLE in least provocative position PT-OP-M Strength Start: 10/30/20 08:48 Freq: Status: Active Protocol: Document 10/30/20 15:15 AW (Rec: 10/30/20 17:50 AW [email or web address]) Hip Strength Hip Manual Muscle Testing Left Flexion (L2) 3+ Fair+ Abduction 3+ Fair+ External Rotation 4 Good Internal Rotation 4 Good Right Flexion (L2) 3+ Fair+ Abduction 3+ Fair+ External Rotation 3+ Fair+ Internal Rotation 4 Good Knee Strength Knee Manual Muscle Testing Right Flexion (S2) 4+ Good+ Extension (L3) 4 Good Left Flexion (S2) 4+ Good+ Extension (L3) 4 Good Ankle/Foot Strength Ankle and Foot Manual Muscle Testing Right Dorsiflexion (L4) 4+ Good+ Plantarflexion (S1) 4 Good Inversion 4 Good Eversion (S1) 4 Good Left Dorsiflexion (L4) 4+ Good+ Plantarflexion (S1) 4 Good Inversion 4 Good Eversion (S1) 4 Good PT-OP-Q Treatments Start: 10/30/20 08:48 Freq: Status: Active Protocol: Document 11/11/20 09:48 SP (Rec: 11/11/20 11:48 SP [id number]) Cardio Equipment Bicycle (Upright) Duration (Minutes) 7 Resistance 8 Seat Position 9 Other miles Therapeutic Exercises Standing Exercises ankle IV Standing Exercise Name standing review (AROM doing at home with TB) Side bilateral Reps/Minutes 2 x10 each pre band walk and stairs Comments cued toes and knees // to helps alignment facilitation band walk Standing Exercise Name lateral- added to HEP Resistance YTB around upper duff Equipment Used near rail, contact PRN for balance Reps/Minutes 20 ft x3 laps Comments pt able to don/ doff TB, occasional cue clear trail LE standing squats Standing Exercise Name sit<>stands Equipment Used 18 chair Reps/Minutes 2x8 reps Comments cued hip hinge COG over MICAH, feet and knees // space between, knee behd toe Gait Training Gait Activity stair mgt Comments ascend/descend 4 stairs x6 sets while 1 HR and carrying 3 # DB (assimulated casserole carrier) step over step patterning w/ feet and knees / / 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 Cued quad and glut facilitation with tall posture and decrease need for extra WB UE on HR- improvoed self corrections. Educated safety carry items in bag/ sack/carrier to decrease risk drop/breaking and use of 1HR at this time to reduce risk for falling. Self-Care/Home Management Treatment Education Patient Education Posture,Safety Other Education Extra time spent on safety stair mgt and use of sack/bag to carry items up/down stairs to decrease risk of dropping with good understanding. PT-OP-T Assessment and Plan Start: 10/30/20 08:48 Freq: Status: Active Protocol: Document 11/11/20 09:48 SP (Rec: 11/11/20 11:48 SP [id number]) Physical Therapy Assessment Goals Three Impairment pain with prolonged standing Short Term Goal (STG) Pt will tolerate walking 30 minutes with 4/10 or less ankle/foot pain STG Duration 6 weeks - 12/11/20 Ethylbenzene Oxidizer Goal (LTG) Pt will walk uneven terrain 30 minutes with 3/10 or less ankle foot pain. LTG Duration 12 weeks - 01/22/21 Two Impairment balance Short Term Goal (STG) Pt will improve Functional Gait Assessment score to 21/30 or better for reduction in falls risk STG Duration 6 weeks - 12/11/20 Assisted Goal (LTG) Pt will improve FGA score to 24/30 or better for further reduction in falls risk. One Impairment lacks HEP Short Term Goal (STG) Pt will be independent with HEP to support therapy services provided in clinic. STG Duration 4 weeks - 11/27/20 Ethylbenzene Oxidizer Goal (LTG) Pt will be independent with walking program to sustain therapy gains. LTG Duration 12 weeks - 01/22/21 Assessment Summary Assessment Pt reported in past tx that ankle pain improving. Tx today focused on LE strength, safety stair mgt per daughter request (PT Asha) due to she has noted carrying items could drop and leaning on rail . Improved tall posture and education use of sack/ carrying case to transport items on stairs with improved step over step pattering and quad/ glut facilitation carrying DB. Pt stated her hips felt less stiff end of tx . I am going to be home for few days and will be better about doing my exercises, they make me feels better. Physical Therapy Plan Frequency and Duration Duration of Treatment 12 weeks Plan of Care Start Date 10/30/20 Plan of Care End Date 01/22/21 Therapeutic Interventions Therapeutic Interventions Balance Training,Gait Training ,Home Exercise Program,Joint Mobilizations,Manual Therapy, Neuromuscular Re-education, Orthotic/Prosthetic Management ,Patient/Caregiver Education, Self-Care/Home Management, Sensory Integration,Soft Tissue Mobilization,Taping, Therapeutic Activities, Therapeutic Exercises Modalities Cold Pack/Ice Massage,Electric Stimulation,Hot Packs Next Visit Focus/Plan Next Note Type Treatment Note Next Visit Plan Review HEP: 6MWT, FGA, HEP review: band walk at duff, stair mgt. Continue progress balance and functional LE strengthening.
--- NOTE | 2020-11-13 13:32 | PT.OTN ---
Current Diagnoses Difficulty in walking, not elsewhere classified (11/13/20) Unsteadiness on feet (11/13/20) Abnormal posture (11/13/20) Physical Therapy Treatment Note PT-OP-A Visit Information Start: 10/30/20 08:48 Freq: Status: Active Protocol: Document 11/13/20 13:21 OF (Rec: 11/13/20 13:32 OF [id number]) Out-Patient Physical Therapy Visit Information Visit Information Visit Type Treatment Note Visit Start Time 11:15 Visit Stop Time 11:57 Total Visit Minutes 42 Visit Number 6 Evaluation Information Evaluation Date 10/30/20 Precautions Precautions Falls risk PT-OP-B Current Condition Start: 10/30/20 08:48 Freq: Status: Active Protocol: Document 10/30/20 15:15 AW (Rec: 10/30/20 14:53 AW [id number]) Current Condition History of Current Condition Onset Date years but with exacerbation in the past 6 months Current Complaints balance, R LE pain, B foot and ankle pain History of Current Condition Nevaeh states she has been experiencing bilateral foot and ankle pain which is chronic for her but worse in the past six months. She notes she has been more sedentary than usual over the past year and has likely been somewhat depressed. Pt sees podiatry for foot concerns including bilateral hallux valgus and bunions. She uses custom orthotics which provide medial arch support and posting of the calcaneus. She also uses MT head bars. Pain is alleviated by rest, heat, and OTC medications. Standing long periods or prolonged activities increase her pain. 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 She still uses a single trekking pole for walking unevent terrain but often forgets. She is now reporting posterior right leg pain (up to 6/10) which is limiting her ambulation tolerance. This pain is ok in sitting, worse with standing or lying in bed. Her sleep has been more disturbed recently and she reports difficulty both falling asleep and staying asleep. Prior Treatments and Tests R TKE March 2020 which rehabbed well. Pt previously had PT aimed at right ankle and balance deficits. Future Testing and Treatments Planned Pt plans to see a neurologist due to short term memory concerns. Treatment Goals Patient/Caregiver Goals Be able to walk better, for longer duration, and without pain so that she can enjoy a planned December trip to [place] and [place]. Current Functional Impairments (Reported) Functional Limitations- Mobility/Gait Can walk a maximum of 15-20 minutes without pain Functional Limitations- Recreation/ Limited in gardening, getting Hobbies up and down from the floor. Personal Factors Other Personal Factors That May Effect (-) short term memory loss Therapy/Recovery (-) self-reported depression (+) supportive family PT-OP-C Subjective Start: 10/30/20 08:48 Freq: Status: Active Protocol: Document 11/13/20 13:21 OF (Rec: 11/13/20 13:32 OF [id number]) OP-PT Subjective Patient Comments Patient Comments Pt states she has been fatigued at home, performing HEP, brings band and written instructions Patient Reported Progress Improving OP-PT Pain Assessment Pain Assessment Grid Paper Pain Assessment Grid Completed pt denies pain PT-OP-D Balance Start: 10/30/20 08:48 Freq: Status: Active Protocol: Document 10/30/20 15:15 AW (Rec: 10/30/20 17:41 AW [email or web address]) OP-PT Balance Assessment Sitting Balance Static Sitting Balance Ability Good Dynamic Sitting Balance Ability Good Standing Balance Static Standing Balance Ability Fair Dynamic Standing Balance Ability Poor Device Used no AD Balance Tests Single Limb Standing Single Limb- Right <1 sec Single Limb- Left <1 sec Semi-Tandem Standing Semi-Tandem Standing Balance unable to get into position or hold position without assist Other Other Balance Tests Performed Functional Gait Assessment: . Scanned to [facility] [place] Fall Scale Copyright Permission PT-OP-G Mobility & Gait Start: 10/30/20 08:48 Freq: Status: Active Protocol: Document 10/30/20 15:15 AW (Rec: 10/30/20 17:41 AW [email or web address]) OP Mobility Evaluation Transfers Sit to Stand requires UE support if surface 20 or lower Functional Movements Squats able to retrieve items from the floor but without significant hip flexion OP Gait Assessment Gait Gait Assistance Required: Independent Distance (Feet) 200 Assistive Devices Assistive Device None Orthotic/Prosthetic Devices or Brace: Yes Gait Deviations General Gait Pattern Antalgic,Flexed Trunk,Lateral Trunk Lean,Wide Based Gait Comments Gait Comments Able to ambulate without assistive device but with decreased foot clearance bilaterally (RLE more affected than LLE), pronated feet ( excessive calcaneal valgus in standing), and decreased LLE stance time. Stair Climbing Evaluation Devices Stair Climbing Assistive Devices Left Railing,Right Railing Technique/Endurance Stair Climbing Direction Ascend and Descend Stair Climbing Technique Step Over Step Number of Steps Climbed 4 Stair Climbing Set # Repetitions (reps) 2 PT-OP-L Special Tests Start: 10/30/20 08:48 Freq: Status: Active Protocol: Document 10/30/20 15:15 AW (Rec: 10/30/20 18:11 AW [email or web address]) Special Tests Lumbar Spine Special Tests Slump Test Results reproduces pain in posterior RLE in least provocative position PT-OP-M Strength Start: 10/30/20 08:48 Freq: Status: Active Protocol: Document 10/30/20 15:15 AW (Rec: 10/30/20 17:50 AW [email or web address]) Hip Strength Hip Manual Muscle Testing Left Flexion (L2) 3+ Fair+ Abduction 3+ Fair+ External Rotation 4 Good Internal Rotation 4 Good Right Flexion (L2) 3+ Fair+ Abduction 3+ Fair+ External Rotation 3+ Fair+ Internal Rotation 4 Good Knee Strength Knee Manual Muscle Testing Right Flexion (S2) 4+ Good+ Extension (L3) 4 Good Left Flexion (S2) 4+ Good+ Extension (L3) 4 Good Ankle/Foot Strength Ankle and Foot Manual Muscle Testing Right Dorsiflexion (L4) 4+ Good+ Plantarflexion (S1) 4 Good Inversion 4 Good Eversion (S1) 4 Good Left Dorsiflexion (L4) 4+ Good+ Plantarflexion (S1) 4 Good Inversion 4 Good Eversion (S1) 4 Good PT-OP-Q Treatments Start: 10/30/20 08:48 Freq: Status: Active Protocol: Document 11/13/20 13:21 OF (Rec: 11/13/20 13:32 OF [id number]) Therapeutic Exercises Supine Exercises PF stretch Supine Exercise Name ankle over opp knee and knee toward opp shld (supine today) Side bilateral Reps/Minutes 30 x2 (reviewed HEP: supine R, seated L) Comments pain free Sitting Exercises calf stretch Sitting Exercise Name calf stretch Side right Equipment Used standing Reps/Minutes 30x3 3 Sitting Exercise Name 3 way resisted walking Side bilateral Resistance TB 1 Reps/Minutes 3X10ft Standing Exercises standing squats Standing Exercise Name sit<>stands Side bilateral Reps/Minutes 3x5 Comments cues for proper weightshifting to clear hips step ups on 4 step Side bilateral Reps/Minutes 3x5 Comments cues for stance stability improve performance standing hip extension and abduction Standing Exercise Name standing hip extension and abduction Side bilateral Reps/Minutes 3 x 10 reps step down Standing Exercise Name ant/post step down/up Side bilateral Equipment Used 6 inch step Reps/Minutes 3x5 Comments encourage hip and knee ext Gait Training Gait Activity stair mgt Comments ascend/descend 4 stairs x6 sets while 1 HR cues for proper step through gait, demo for increased pushoff to clear feet with stepping up level surface Description fwd/ bwd Device Used none Level of Assistance SBA Surface floor Comments 6min walk test 1060ft, no rest required Neuro Re-Education Treatment Balance Activities 2 Details NBOS: feet together, stagger Surface floor Equipment // bars Reps/Duration worked on for 2x4 min Self-Care/Home Management Treatment Education Patient Education Body Mechanics,Fall Risk,Home Exercise Program PT-OP-T Assessment and Plan Start: 10/30/20 08:48 Freq: Status: Active Protocol: Document 11/13/20 13:21 OF (Rec: 11/13/20 13:32 OF [id number]) Physical Therapy Assessment Rehab Potential Rehabilitation Potential Good Evaluation Complexity Number of Personal Factors/Comorbidities 1-2 Number of Body Systems Impaired 1-2 Clinical Presentation at Evaluation Stable Impairments Impairments Activity Tolerance, Coordination,Gait,Pain, Strength Goals Three Impairment pain with prolonged standing Short Term Goal (STG) Pt will tolerate walking 30 minutes with 4/10 or less ankle/foot pain STG Duration 6 weeks - 12/11/20 Custodial Goal (LTG) Pt will walk uneven terrain 30 minutes with 3/10 or less ankle foot pain. LTG Duration 12 weeks - 01/22/21 Two Impairment balance Short Term Goal (STG) Pt will improve Functional Gait Assessment score to 21/30 or better for reduction in falls risk STG Duration 6 weeks - 12/11/20 Citrus Fruit Packer Goal (LTG) Pt will improve FGA score to 24/30 or better for further reduction in falls risk. One Impairment lacks HEP Short Term Goal (STG) Pt will be independent with HEP to support therapy services provided in clinic. STG Duration 4 weeks - 11/27/20 Citrus Fruit Packer Goal (LTG) Pt will be independent with walking program to sustain therapy gains. LTG Duration 12 weeks - 01/22/21 Progress Towards Goals Progress Towards Goals Progressing Toward Goals Progress Comments pt covers 106ft with 6min walk test. She has written HEP and states she is performing properly Assessment Summary Assessment Pt has improved her endurance with AMB, she reports difficulty with stairs and IADL. She has good potential to improve her gait pattern, and reduce fall risk. Physical Therapy Plan Frequency and Duration Plan of Care End Date 01/22/21 Next Visit Focus/Plan Next Note Type Treatment Note Next Visit Plan continue stair training, dynamic balance training, progress standing exercises for HEP
--- NOTE | 2020-12-09 11:20 | PT.OTN ---
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 She notes she has been more sedentary than usual over the past year and has likely been somewhat depressed. Pt sees podiatry for foot concerns including bilateral hallux valgus and bunions. She uses custom orthotics which provide medial arch support and posting of the calcaneus. She also uses MT head bars. Pain is alleviated by rest, heat, and OTC medications. Standing long periods or prolonged activities increase her pain. 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 She still uses a single trekking pole for walking unevent terrain but often forgets. She is now reporting posterior right leg pain (up to 6/10) which is limiting her ambulation tolerance. This pain is ok in sitting, worse with standing or lying in bed. Her sleep has been more disturbed recently and she reports difficulty both falling asleep and staying asleep. Prior Treatments and Tests R TKE March 2020 which rehabbed well. Pt previously had PT aimed at right ankle and balance deficits. Future Testing and Treatments Planned Pt plans to see a neurologist due to short term memory concerns. Treatment Goals Patient/Caregiver Goals Be able to walk better, for longer duration, and without pain so that she can enjoy a planned December trip to [place] and [place]. Current Functional Impairments (Reported) Functional Limitations- Mobility/Gait Can walk a maximum of 15-20 minutes without pain Functional Limitations- Recreation/ Limited in gardening, getting Hobbies up and down from the floor. Personal Factors Other Personal Factors That May Effect (-) short term memory loss Therapy/Recovery (-) self-reported depression (+) supportive family PT-OP-C Subjective Start: 10/30/20 08:48 Freq: Status: Active Protocol: Document 12/09/20 10:38 SP (Rec: 12/09/20 11:39 SP [id number]) OP-PT Subjective Patient Comments Patient Comments Pt stated was on vacation with family since last tx. Doing activities as walking incline terrain withs support of family needed for safety, getting on/off various boats, only had time for supine exercises. Pt reports having R LBP that goes into R glut and posteriorly down R leg to lower leg yesterday but only to post R thigh today and affecting her walking, antalgic demonstrated. PT-OP-D Balance Start: 10/30/20 08:48 Freq: Status: Active Protocol: Document 10/30/20 15:15 AW (Rec: 10/30/20 17:41 AW [email or web address]) OP-PT Balance Assessment Sitting Balance Static Sitting Balance Ability Good Dynamic Sitting Balance Ability Good Standing Balance Static Standing Balance Ability Fair Dynamic Standing Balance Ability Poor Device Used no AD Balance Tests Single Limb Standing Single Limb- Right <1 sec Single Limb- Left <1 sec Semi-Tandem Standing Semi-Tandem Standing Balance unable to get into position or hold position without assist Other Other Balance Tests Performed Functional Gait Assessment: . Scanned to [facility] [place] Fall Scale Copyright Permission PT-OP-G Mobility & Gait Start: 10/30/20 08:48 Freq: Status: Active Protocol: Document 10/30/20 15:15 AW (Rec: 10/30/20 17:41 AW [email or web address]) OP Mobility Evaluation Transfers Sit to Stand requires UE support if surface 20 or lower Functional Movements Squats able to retrieve items from the floor but without significant hip flexion OP Gait Assessment Gait Gait Assistance Required: Independent Distance (Feet) 200 Assistive Devices Assistive Device None Orthotic/Prosthetic Devices or Brace: Yes Gait Deviations General Gait Pattern Antalgic,Flexed Trunk,Lateral Trunk Lean,Wide Based Gait Comments Gait Comments Able to ambulate without assistive device but with decreased foot clearance bilaterally (RLE more affected than LLE), pronated feet ( excessive calcaneal valgus in standing), and decreased LLE stance time. Stair Climbing Evaluation Devices Stair Climbing Assistive Devices Left Railing,Right Railing Technique/Endurance Stair Climbing Direction Ascend and Descend Stair Climbing Technique Step Over Step Number of Steps Climbed 4 Stair Climbing Set # Repetitions (reps) 2 PT-OP-L Special Tests Start: 10/30/20 08:48 Freq: Status: Active Protocol: Document 10/30/20 15:15 AW (Rec: 10/30/20 18:11 AW [email or web address]) Special Tests Lumbar Spine Special Tests Slump Test Results reproduces pain in posterior RLE in least provocative position PT-OP-M Strength Start: 10/30/20 08:48 Freq: Status: Active Protocol: Document 10/30/20 15:15 AW (Rec: 10/30/20 17:50 AW [email or web address]) Hip Strength Hip Manual Muscle Testing Left Flexion (L2) 3+ Fair+ Abduction 3+ Fair+ External Rotation 4 Good Internal Rotation 4 Good Right Flexion (L2) 3+ Fair+ Abduction 3+ Fair+ External Rotation 3+ Fair+ Internal Rotation 4 Good Knee Strength Knee Manual Muscle Testing Right Flexion (S2) 4+ Good+ Extension (L3) 4 Good Left Flexion (S2) 4+ Good+ Extension (L3) 4 Good Ankle/Foot Strength Ankle and Foot Manual Muscle Testing Right Dorsiflexion (L4) 4+ Good+ Plantarflexion (S1) 4 Good Inversion 4 Good Eversion (S1) 4 Good Left Dorsiflexion (L4) 4+ Good+ Plantarflexion (S1) 4 Good Inversion 4 Good Eversion (S1) 4 Good PT-OP-Q Treatments Start: 10/30/20 08:48 Freq: Status: Active Protocol: Document 12/09/20 10:38 SP (Rec: 12/09/20 11:39 SP [id number]) Therapeutic Exercises Supine Exercises pelvic realignment ex Supine Exercise Name pelvis lift, adductor, hip ext isometric Side right Equipment Used small purple ball Reps/Minutes 3 sec hold x5 each Comments cued gentle muscle fac, not over engage or do to many, good understanding LTR Supine Exercise Name R>L Side right Reps/Minutes 30 x3 Comments good lateral hip stretch on R needed today sciatic nerve floss Supine Exercise Name clasp hands behind upper thigh , R knee ext w/ ankle pump Side bilateral Resistance reviewed HEP as needed for pain in back/ leg R today Reps/Minutes 2x10 each LE Comments good form, pain free range- good feedback loosening Hamstring stretch Side right Equipment Used grasp behind thigh Comments good feedback loosening PF stretch Supine Exercise Name ankle over opp knee and knee toward opp shld (supine today) Side bilateral Reps/Minutes 30 x2 (reviewed HEP) Comments pain free Sitting Exercises stick rolling Sitting Exercise Name quad, ITB, HS, calf- self Side right Resistance rolling and rocking side to side Reps/Minutes 5 min Comments good feedback Standing Exercises STMs ball roll wall Standing Exercise Name discussed/ reminded- and states does if needed Side right Equipment Used racquetball at wall Reps/Minutes 30 sec Manual Therapy Treatment Soft Tissue Mobilization STMs Body Location R pirformis, HS, glut med Mobilization Type Cross-Friction,Rolling, Strumming,Trigger Point Release Intensity/Depth Moderate Body Position Sidelying Comments Manual and instruction on self use of rolling stick and ball at wall for self relief. Self-Care/Home Management Treatment Education Patient Education Body Mechanics,Home Exercise Program,Pain Management,Safety Other Education Extra time spent on education of self application of pain reducation and self HEP: stretching, flexibility/ rolling w/ ball or rolling stick, initiated pelvic realignment and understanding sciatic nerve glide for support- no significant change end tx. PT-OP-T Assessment and Plan Start: 10/30/20 08:48 Freq: Status: Active Protocol: Document 12/09/20 10:38 SP (Rec: 12/09/20 11:39 SP [id number]) Physical Therapy Assessment Goals Three Impairment pain with prolonged standing Short Term Goal (STG) Pt will tolerate walking 30 minutes with 4/10 or less ankle/foot pain STG Duration 6 weeks - 12/11/20 Driver Wheelchair Goal (LTG) Pt will walk uneven terrain 30 minutes with 3/10 or less ankle foot pain. LTG Duration 12 weeks - 01/22/21 Two Impairment balance Short Term Goal (STG) Pt will improve Functional Gait Assessment score to 21/30 or better for reduction in falls risk STG Duration 6 weeks - 12/11/20 Driver Wheelchair Goal (LTG) Pt will improve FGA score to 24/30 or better for further reduction in falls risk. One Impairment lacks HEP Short Term Goal (STG) Pt will be independent with HEP to support therapy services provided in clinic. STG Duration 4 weeks - 11/27/20 Driver Wheelchair Goal (LTG) Pt will be independent with walking program to sustain therapy gains. LTG Duration 12 weeks - 01/22/21 Assessment Summary Assessment Pt stated felt little less pain over R glut and posterior thigh end of tx after manual and instruction of self application use of rolling stick, stretching, sciatic nerve glide today. Noted improved gait leaving, improved WB on RLE. Physical Therapy Plan Frequency and Duration Duration of Treatment 12 weeks Plan of Care Start Date 10/30/20 Plan of Care End Date 01/22/21 Therapeutic Interventions Therapeutic Interventions Balance Training,Gait Training ,Home Exercise Program,Joint Mobilizations,Manual Therapy, Neuromuscular Re-education, Orthotic/Prosthetic Management ,Patient/Caregiver Education, Self-Care/Home Management, Sensory Integration,Soft Tissue Mobilization,Taping, Therapeutic Activities, Therapeutic Exercises Modalities Cold Pack/Ice Massage,Electric Stimulation,Hot Packs Next Visit Focus/Plan Next Note Type Treatment Note Next Visit Plan Assess response to manual and self STMs, review stretching HEP and pelvic realignment with self application last tx. POC: continue stair training, dynamic balance training, progress standing exercises for HEP
--- NOTE | 2020-12-12 11:20 | PT.OTN ---
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 She notes she has been more sedentary than usual over the past year and has likely been somewhat depressed. Pt sees podiatry for foot concerns including bilateral hallux valgus and bunions. She uses custom orthotics which provide medial arch support and posting of the calcaneus. She also uses MT head bars. Pain is alleviated by rest, heat, and OTC medications. Standing long periods or prolonged activities increase her pain. 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 She still uses a single trekking pole for walking unevent terrain but often forgets. She is now reporting posterior right leg pain (up to 6/10) which is limiting her ambulation tolerance. This pain is ok in sitting, worse with standing or lying in bed. Her sleep has been more disturbed recently and she reports difficulty both falling asleep and staying asleep. Prior Treatments and Tests R TKE March 2020 which rehabbed well. Pt previously had PT aimed at right ankle and balance deficits. Future Testing and Treatments Planned Pt plans to see a neurologist due to short term memory concerns. Treatment Goals Patient/Caregiver Goals Be able to walk better, for longer duration, and without pain so that she can enjoy a planned December trip to [place] and [place]. Current Functional Impairments (Reported) Functional Limitations- Mobility/Gait Can walk a maximum of 15-20 minutes without pain Functional Limitations- Recreation/ Limited in gardening, getting Hobbies up and down from the floor. Personal Factors Other Personal Factors That May Effect (-) short term memory loss Therapy/Recovery (-) self-reported depression (+) supportive family PT-OP-C Subjective Start: 10/30/20 08:48 Freq: Status: Active Protocol: Document 12/12/20 10:35 SP (Rec: 12/12/20 11:34 SP [id number]) OP-PT Subjective Patient Comments Patient Comments Pt stated the ball rolling her glut at wall has been helpful but hasn't found her rolling stick yet at home. Still has PT-OP-D Balance Start: 10/30/20 08:48 Freq: Status: Active Protocol: Document 10/30/20 15:15 AW (Rec: 10/30/20 17:41 AW [email or web address]) OP-PT Balance Assessment Sitting Balance Static Sitting Balance Ability Good Dynamic Sitting Balance Ability Good Standing Balance Static Standing Balance Ability Fair Dynamic Standing Balance Ability Poor Device Used no AD Balance Tests Single Limb Standing Single Limb- Right <1 sec Single Limb- Left <1 sec Semi-Tandem Standing Semi-Tandem Standing Balance unable to get into position or hold position without assist Other Other Balance Tests Performed Functional Gait Assessment: . Scanned to [facility] [place] Fall Scale Copyright Permission PT-OP-G Mobility & Gait Start: 10/30/20 08:48 Freq: Status: Active Protocol: Document 10/30/20 15:15 AW (Rec: 10/30/20 17:41 AW [email or web address]) OP Mobility Evaluation Transfers Sit to Stand requires UE support if surface 20 or lower Functional Movements Squats able to retrieve items from the floor but without significant hip flexion OP Gait Assessment Gait Gait Assistance Required: Independent Distance (Feet) 200 Assistive Devices Assistive Device None Orthotic/Prosthetic Devices or Brace: Yes Gait Deviations General Gait Pattern Antalgic,Flexed Trunk,Lateral Trunk Lean,Wide Based Gait Comments Gait Comments Able to ambulate without assistive device but with decreased foot clearance bilaterally (RLE more affected than LLE), pronated feet ( excessive calcaneal valgus in standing), and decreased LLE stance time. Stair Climbing Evaluation Devices Stair Climbing Assistive Devices Left Railing,Right Railing Technique/Endurance Stair Climbing Direction Ascend and Descend Stair Climbing Technique Step Over Step Number of Steps Climbed 4 Stair Climbing Set # Repetitions (reps) 2 PT-OP-L Special Tests Start: 10/30/20 08:48 Freq: Status: Active Protocol: Document 10/30/20 15:15 AW (Rec: 10/30/20 18:11 AW [email or web address]) Special Tests Lumbar Spine Special Tests Slump Test Results reproduces pain in posterior RLE in least provocative position PT-OP-M Strength Start: 10/30/20 08:48 Freq: Status: Active Protocol: Document 10/30/20 15:15 AW (Rec: 10/30/20 17:50 AW [email or web address]) Hip Strength Hip Manual Muscle Testing Left Flexion (L2) 3+ Fair+ Abduction 3+ Fair+ External Rotation 4 Good Internal Rotation 4 Good Right Flexion (L2) 3+ Fair+ Abduction 3+ Fair+ External Rotation 3+ Fair+ Internal Rotation 4 Good Knee Strength Knee Manual Muscle Testing Right Flexion (S2) 4+ Good+ Extension (L3) 4 Good Left Flexion (S2) 4+ Good+ Extension (L3) 4 Good Ankle/Foot Strength Ankle and Foot Manual Muscle Testing Right Dorsiflexion (L4) 4+ Good+ Plantarflexion (S1) 4 Good Inversion 4 Good Eversion (S1) 4 Good Left Dorsiflexion (L4) 4+ Good+ Plantarflexion (S1) 4 Good Inversion 4 Good Eversion (S1) 4 Good PT-OP-Q Treatments Start: 10/30/20 08:48 Freq: Status: Active Protocol: Document 12/12/20 10:35 SP (Rec: 12/12/20 11:34 SP [id number]) Cardio Equipment Bicycle (Upright) Duration (Minutes) 6 Resistance 13 Seat Position 9 Other miles 1.76 in 6.5 min Therapeutic Exercises Sitting Exercises 4 way ankle Sitting Exercise Name reviewed ankle IR only today- reviewed Side bilateral Resistance Tb #4 all directions Reps/Minutes x20 Comments min cues for set up & direction mov't for alignment on stairs Standing Exercises band walk Standing Exercise Name lateral- reviewed HEP Resistance #1 TB> #2 loop around upper duff Equipment Used near rail, contact PRN for balance Reps/Minutes 20 ft x3 laps Comments pt able to don/ doff TB, occasional cue clear trail LE standing squats Standing Exercise Name sit<>stands (review more next tx w/ slow descent) Side bilateral Equipment Used 18 c hair Comments cues for proper weightshifting to clear hips, slow descent step ups on 4 step Standing Exercise Name reviewed HEP Side bilateral Equipment Used rail as needed (safety contact at home) Reps/Minutes 3x5 Comments cues for stance stability improve performance Gait Training Gait Activity 6MWT Device Used 0 Level of Assistance 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 stair mgt Comments ascend/descend 4 stairs x6 sets while 1 HR cues for proper step through gait, demo for increased pushoff to clear feet with stepping up and ER of L ankle descend with awareness of neutral forward knee upper femur alignment. PT-OP-T Assessment and Plan Start: 10/30/20 08:48 Freq: Status: Active Protocol: Document 12/12/20 10:35 SP (Rec: 12/12/20 11:34 SP [id number]) Physical Therapy Assessment Goals Three Impairment pain with prolonged standing Short Term Goal (STG) Pt will tolerate walking 30 minutes with 4/10 or less ankle/foot pain 12/12/20: progressing: still gets ankle pain periodically when on feet or walked alot 5- 6/10 pain. STG Duration 6 weeks - 12/11/20 Penitentiary Goal (LTG) Pt will walk uneven terrain 30 minutes with 3/10 or less ankle foot pain. LTG Duration 12 weeks - 01/22/21 Two Impairment balance Short Term Goal (STG) Pt will improve Functional Gait Assessment score to 21/30 or better for reduction in falls risk 12/12/20: progressing: STG Duration 6 weeks - 12/11/20 Milling Supervisor Goal (LTG) Pt will improve FGA score to 24/30 or better for further reduction in falls risk. One Impairment lacks HEP Short Term Goal (STG) Pt will be independent with HEP to support therapy services provided in clinic. STG Duration 4 weeks - 11/27/20 Penitentiary Goal (LTG) Pt will be independent with walking program to sustain therapy gains. LTG Duration 12 weeks - 01/22/21 Assessment Summary Assessment Pt is improving only occasional pain in ankles if on feet to long but much better. Today focused on HEP review for confidence and I, able to tolerated increased resistance. Pt decreased in endurance step distance today during 6MWT compared to 2 tx ago. Cued quad & glut facilitation knee ext during ascending stairs to allow increased stability and form. Physical Therapy Plan Frequency and Duration Duration of Treatment 12 weeks Plan of Care Start Date 10/30/20 Plan of Care End Date 01/22/21 Therapeutic Interventions Therapeutic Interventions Balance Training,Gait Training ,Home Exercise Program,Joint Mobilizations,Manual Therapy, Neuromuscular Re-education, Orthotic/Prosthetic Management ,Patient/Caregiver Education, Self-Care/Home Management, Sensory Integration,Soft Tissue Mobilization,Taping, Therapeutic Activities, Therapeutic Exercises Modalities Cold Pack/Ice Massage,Electric Stimulation,Hot Packs Next Visit Focus/Plan Next Note Type Treatment Note Next Visit Plan Review sit to stands. Continue POC: continue stair training, dynamic balance training, progress standing exercises for HEP
--- NOTE | 2020-12-16 11:21 | PT.OTN ---
Current Diagnoses Difficulty in walking, not elsewhere classified (12/16/20) Unsteadiness on feet (12/16/20) Abnormal posture (12/16/20) Physical Therapy Treatment Note PT-OP-A Visit Information Start: 10/30/20 08:48 Freq: Status: Active Protocol: Document 12/16/20 10:36 SP (Rec: 12/16/20 16:26 SP [id number]) Out-Patient Physical Therapy Visit Information Visit Information Visit Type Treatment Note Visit Start Time 10:36 Visit Stop Time 11:21 Total Visit Minutes 45 Visit Number 9 Number of RUNNING SPECIALIST Visits 2 Evaluation Information Evaluation Date 10/30/20 Precautions Precautions Falls risk PT-OP-B Current Condition Start: 10/30/20 08:48 Freq: Status: Active Protocol: Document 10/30/20 15:15 AW (Rec: 10/30/20 14:53 AW [id number]) Current Condition History of Current Condition Onset Date years but with exacerbation in the past 6 months Current Complaints balance, R LE pain, B foot and ankle pain History of Current Condition Nevaeh states she has been experiencing bilateral foot and ankle pain which is chronic for her but worse in the past six months. She notes she has been more sedentary than usual over the past year and has likely been somewhat depressed. Pt sees podiatry for foot concerns including bilateral hallux valgus and bunions. She uses custom orthotics which provide medial arch support and posting of the calcaneus. She also uses MT head bars. Pain is alleviated by rest, heat, and OTC medications. Standing long periods or prolonged activities increase her pain. 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 She still uses a single trekking pole for walking unevent terrain but often forgets. She is now reporting posterior right leg pain (up to 6/10) which is limiting her ambulation tolerance. This pain is ok in sitting, worse with standing or lying in bed. Her sleep has been more disturbed recently and she reports difficulty both falling asleep and staying asleep. Prior Treatments and Tests R TKE March 2020 which rehabbed well. Pt previously had PT aimed at right ankle and balance deficits. Future Testing and Treatments Planned Pt plans to see a neurologist due to short term memory concerns. Treatment Goals Patient/Caregiver Goals Be able to walk better, for longer duration, and without pain so that she can enjoy a planned December trip to [place] and [place]. Current Functional Impairments (Reported) Functional Limitations- Mobility/Gait Can walk a maximum of 15-20 minutes without pain Functional Limitations- Recreation/ Limited in gardening, getting Hobbies up and down from the floor. Personal Factors Other Personal Factors That May Effect (-) short term memory loss Therapy/Recovery (-) self-reported depression (+) supportive family PT-OP-C Subjective Start: 10/30/20 08:48 Freq: Status: Active Protocol: Document 12/16/20 10:36 SP (Rec: 12/16/20 16:26 SP [id number]) OP-PT Subjective Patient Comments Patient Comments Pt stated little sore after doing some outdoor work: pulling weeds, etc. Still LBP when doing dishes due to low sink but counter tops good tall height. She reported the ball rolling onback, hips helping alot to reduce tightness. Her daughter is looking into getting her a taller recliner/ chair, due to her is to low and rocks backward so challenging getting out of. Patient Reported Progress Improving PT-OP-D Balance Start: 10/30/20 08:48 Freq: Status: Active Protocol: Document 10/30/20 15:15 AW (Rec: 10/30/20 17:41 AW [email or web address]) OP-PT Balance Assessment Sitting Balance Static Sitting Balance Ability Good Dynamic Sitting Balance Ability Good Standing Balance Static Standing Balance Ability Fair Dynamic Standing Balance Ability Poor Device Used no AD Balance Tests Single Limb Standing Single Limb- Right <1 sec Single Limb- Left <1 sec Semi-Tandem Standing Semi-Tandem Standing Balance unable to get into position or hold position without assist Other Other Balance Tests Performed Functional Gait Assessment: . Scanned to [facility] [place] Fall Scale Copyright Permission PT-OP-G Mobility & Gait Start: 10/30/20 08:48 Freq: Status: Active Protocol: Document 10/30/20 15:15 AW (Rec: 10/30/20 17:41 AW [email or web address]) OP Mobility Evaluation Transfers Sit to Stand requires UE support if surface 20 or lower Functional Movements Squats able to retrieve items from the floor but without significant hip flexion OP Gait Assessment Gait Gait Assistance Required: Independent Distance (Feet) 200 Assistive Devices Assistive Device None Orthotic/Prosthetic Devices or Brace: Yes Gait Deviations General Gait Pattern Antalgic,Flexed Trunk,Lateral Trunk Lean,Wide Based Gait Comments Gait Comments Able to ambulate without assistive device but with decreased foot clearance bilaterally (RLE more affected than LLE), pronated feet ( excessive calcaneal valgus in standing), and decreased LLE stance time. Stair Climbing Evaluation Devices Stair Climbing Assistive Devices Left Railing,Right Railing Technique/Endurance Stair Climbing Direction Ascend and Descend Stair Climbing Technique Step Over Step Number of Steps Climbed 4 Stair Climbing Set # Repetitions (reps) 2 PT-OP-L Special Tests Start: 10/30/20 08:48 Freq: Status: Active Protocol: Document 10/30/20 15:15 AW (Rec: 10/30/20 18:11 AW [email or web address]) Special Tests Lumbar Spine Special Tests Slump Test Results reproduces pain in posterior RLE in least provocative position PT-OP-M Strength Start: 10/30/20 08:48 Freq: Status: Active Protocol: Document 10/30/20 15:15 AW (Rec: 10/30/20 17:50 AW [email or web address]) Hip Strength Hip Manual Muscle Testing Left Flexion (L2) 3+ Fair+ Abduction 3+ Fair+ External Rotation 4 Good Internal Rotation 4 Good Right Flexion (L2) 3+ Fair+ Abduction 3+ Fair+ External Rotation 3+ Fair+ Internal Rotation 4 Good Knee Strength Knee Manual Muscle Testing Right Flexion (S2) 4+ Good+ Extension (L3) 4 Good Left Flexion (S2) 4+ Good+ Extension (L3) 4 Good Ankle/Foot Strength Ankle and Foot Manual Muscle Testing Right Dorsiflexion (L4) 4+ Good+ Plantarflexion (S1) 4 Good Inversion 4 Good Eversion (S1) 4 Good Left Dorsiflexion (L4) 4+ Good+ Plantarflexion (S1) 4 Good Inversion 4 Good Eversion (S1) 4 Good PT-OP-Q Treatments Start: 10/30/20 08:48 Freq: Status: Active Protocol: Document 12/16/20 10:36 SP (Rec: 12/16/20 16:26 SP [id number]) Therapeutic Exercises Sitting Exercises Ts rotation Sitting Exercise Name stand at sink, then seated ( see handout) Side bilateral Reps/Minutes 10 sec holdx5 reps Comments good feedback response- added to HEP Standing Exercises wall posture Standing Exercise Name roll ups Reps/Minutes x5, hold 10 sec Comments cued awareness of neutral LS and CS best can w/ TA fac- good form pec stretch/scap retraction Standing Exercise Name hands clasped behind back ( self HEP stretch) Resistance AROM Reps/Minutes 20 sec x3 Comments good form and feedback stretch sit<>stands Standing Exercise Name for LE strengthening- arms on lap>front> across chest, gd eccentric control Resistance AROM Equipment Used 20 blue foam cushion> 18 chair Reps/Minutes x8, rest then for time 3 reps in 27.87 sec Comments pt tires quickly, cued scoot forward, feet underneath her, hip hingeCOG/MICAH Therapeutic Activity Therapeutic Activity posture standing activities Name posture at sink, cooking Comments cued chest lift, neutral pelvis w/ core fac and soft knees with hip hinge to meet dishes, needs to periodically if mid back sore to perform stretching TS rotation, ext and may need seated rest for recovery. Self-Care/Home Management Treatment Education Patient Education Body Mechanics,Home Exercise Program,Pain Management, Posture PT-OP-T Assessment and Plan Start: 10/30/20 08:48 Freq: Status: Active Protocol: Document 12/16/20 10:36 SP (Rec: 12/16/20 16:26 SP [id number]) Physical Therapy Assessment Goals Three Impairment pain with prolonged standing Short Term Goal (STG) Pt will tolerate walking 30 minutes with 4/10 or less ankle/foot pain 12/12/20: progressing: still gets ankle pain periodically when on feet or walked alot 5- 6/10 pain. STG Duration 6 weeks - 12/11/20 Half-Way Goal (LTG) Pt will walk uneven terrain 30 minutes with 3/10 or less ankle foot pain. LTG Duration 12 weeks - 01/22/21 Two Impairment balance Short Term Goal (STG) Pt will improve Functional Gait Assessment score to 21/30 or better for reduction in falls risk 12/12/20: progressing: STG Duration 6 weeks - 12/11/20 Half-Way Goal (LTG) Pt will improve FGA score to 24/30 or better for further reduction in falls risk. One Impairment lacks HEP Short Term Goal (STG) Pt will be independent with HEP to support therapy services provided in clinic. STG Duration 4 weeks - 11/27/20 Half-Way Goal (LTG) Pt will be independent with walking program to sustain therapy gains. LTG Duration 12 weeks - 01/22/21 Assessment Summary Assessment Tx focused on mid back tightness and posture during standing activities today and strength getting up from seated position. Improved with decrease UE support and postural alignment with flexibilty as needed for increase endurance standing. Pt stated improved understanding of posture during washing dishes will try at home. Physical Therapy Plan Frequency and Duration Duration of Treatment 12 weeks Plan of Care Start Date 10/30/20 Plan of Care End Date 01/22/21 Therapeutic Interventions Therapeutic Interventions Balance Training,Gait Training ,Home Exercise Program,Joint Mobilizations,Manual Therapy, Neuromuscular Re-education, Orthotic/Prosthetic Management ,Patient/Caregiver Education, Self-Care/Home Management, Sensory Integration,Soft Tissue Mobilization,Taping, Therapeutic Activities, Therapeutic Exercises Modalities Cold Pack/Ice Massage,Electric Stimulation,Hot Packs Next Visit Focus/Plan Next Note Type Treatment Note Next Visit Plan Continue sit<>stands, awareness of posture and progress per POC. POC: continue stair training, dynamic balance training, progress standing exercises for HEP
--- NOTE | 2020-12-18 12:07 | PT.OTN ---
Current Diagnoses Difficulty in walking, not elsewhere classified (12/18/20) Unsteadiness on feet (12/18/20) Abnormal posture (12/18/20) Physical Therapy Treatment Note PT-OP-A Visit Information Start: 10/30/20 08:48 Freq: Status: Active Protocol: Document 12/18/20 12:00 AW (Rec: 12/18/20 12:01 AW [id number]) Out-Patient Physical Therapy Visit Information Visit Information Visit Type Progress Note Visit Start Time 11:15 Visit Stop Time 12:00 Total Visit Minutes 45 Visit Number 12 Number of PIGMENT WEIGHER Visits 0 Evaluation Information Evaluation Date 10/30/20 Precautions Precautions Falls risk PT-OP-B Current Condition Start: 10/30/20 08:48 Freq: Status: Active Protocol: Document 10/30/20 15:15 AW (Rec: 10/30/20 14:53 AW [id number]) Current Condition History of Current Condition Onset Date years but with exacerbation in the past 6 months Current Complaints balance, R LE pain, B foot and ankle pain History of Current Condition Nevaeh states she has been experiencing bilateral foot and ankle pain which is chronic for her but worse in the past six months. She notes she has been more sedentary than usual over the past year and has likely been somewhat depressed. Pt sees podiatry for foot concerns including bilateral hallux valgus and bunions. She uses custom orthotics which provide medial arch support and posting of the calcaneus. She also uses MT head bars. Pain is alleviated by rest, heat, and OTC medications. Standing long periods or prolonged activities increase her pain. 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 She still uses a single trekking pole for walking unevent terrain but often forgets. She is now reporting posterior right leg pain (up to 6/10) which is limiting her ambulation tolerance. This pain is ok in sitting, worse with standing or lying in bed. Her sleep has been more disturbed recently and she reports difficulty both falling asleep and staying asleep. Prior Treatments and Tests R TKE March 2020 which rehabbed well. Pt previously had PT aimed at right ankle and balance deficits. Future Testing and Treatments Planned Pt plans to see a neurologist due to short term memory concerns. Treatment Goals Patient/Caregiver Goals Be able to walk better, for longer duration, and without pain so that she can enjoy a planned December trip to [place] and [place]. Current Functional Impairments (Reported) Functional Limitations- Mobility/Gait Can walk a maximum of 15-20 minutes without pain Functional Limitations- Recreation/ Limited in gardening, getting Hobbies up and down from the floor. Personal Factors Other Personal Factors That May Effect (-) short term memory loss Therapy/Recovery (-) self-reported depression (+) supportive family PT-OP-C Subjective Start: 10/30/20 08:48 Freq: Status: Active Protocol: Document 12/18/20 12:00 AW (Rec: 12/18/20 12:01 AW [id number]) OP-PT Subjective Patient Comments Patient Comments Pt reports improvement with sciatic symptoms since doing more rolling with a racquetball at home. Patient Reported Progress Improving PT-OP-D Balance Start: 10/30/20 08:48 Freq: Status: Active Protocol: Document 10/30/20 15:15 AW (Rec: 10/30/20 17:41 AW [email or web address]) OP-PT Balance Assessment Sitting Balance Static Sitting Balance Ability Good Dynamic Sitting Balance Ability Good Standing Balance Static Standing Balance Ability Fair Dynamic Standing Balance Ability Poor Device Used no AD Balance Tests Single Limb Standing Single Limb- Right <1 sec Single Limb- Left <1 sec Semi-Tandem Standing Semi-Tandem Standing Balance unable to get into position or hold position without assist Other Other Balance Tests Performed Functional Gait Assessment: . Scanned to [facility] [place] Fall Scale Copyright Permission PT-OP-G Mobility & Gait Start: 10/30/20 08:48 Freq: Status: Active Protocol: Document 10/30/20 15:15 AW (Rec: 10/30/20 17:41 AW [email or web address]) OP Mobility Evaluation Transfers Sit to Stand requires UE support if surface 20 or lower Functional Movements Squats able to retrieve items from the floor but without significant hip flexion OP Gait Assessment Gait Gait Assistance Required: Independent Distance (Feet) 200 Assistive Devices Assistive Device None Orthotic/Prosthetic Devices or Brace: Yes Gait Deviations General Gait Pattern Antalgic,Flexed Trunk,Lateral Trunk Lean,Wide Based Gait Comments Gait Comments Able to ambulate without assistive device but with decreased foot clearance bilaterally (RLE more affected than LLE), pronated feet ( excessive calcaneal valgus in standing), and decreased LLE stance time. Stair Climbing Evaluation Devices Stair Climbing Assistive Devices Left Railing,Right Railing Technique/Endurance Stair Climbing Direction Ascend and Descend Stair Climbing Technique Step Over Step Number of Steps Climbed 4 Stair Climbing Set # Repetitions (reps) 2 PT-OP-L Special Tests Start: 10/30/20 08:48 Freq: Status: Active Protocol: Document 10/30/20 15:15 AW (Rec: 10/30/20 18:11 AW [email or web address]) Special Tests Lumbar Spine Special Tests Slump Test Results reproduces pain in posterior RLE in least provocative position PT-OP-M Strength Start: 10/30/20 08:48 Freq: Status: Active Protocol: Document 10/30/20 15:15 AW (Rec: 10/30/20 17:50 AW [email or web address]) Hip Strength Hip Manual Muscle Testing Left Flexion (L2) 3+ Fair+ Abduction 3+ Fair+ External Rotation 4 Good Internal Rotation 4 Good Right Flexion (L2) 3+ Fair+ Abduction 3+ Fair+ External Rotation 3+ Fair+ Internal Rotation 4 Good Knee Strength Knee Manual Muscle Testing Right Flexion (S2) 4+ Good+ Extension (L3) 4 Good Left Flexion (S2) 4+ Good+ Extension (L3) 4 Good Ankle/Foot Strength Ankle and Foot Manual Muscle Testing Right Dorsiflexion (L4) 4+ Good+ Plantarflexion (S1) 4 Good Inversion 4 Good Eversion (S1) 4 Good Left Dorsiflexion (L4) 4+ Good+ Plantarflexion (S1) 4 Good Inversion 4 Good Eversion (S1) 4 Good PT-OP-Q Treatments Start: 10/30/20 08:48 Freq: Status: Active Protocol: Document 12/18/20 12:00 AW (Rec: 12/18/20 12:01 AW [id number]) Therapeutic Exercises Standing Exercises wall posture Standing Exercise Name roll ups Reps/Minutes x5, hold 10 sec Comments cued awareness of neutral LS and CS best can w/ TA fac- good form pec stretch/scap retraction Standing Exercise Name with dowel Resistance AROM Reps/Minutes 20 sec x3 Comments good form and feedback stretch sit<>stands Standing Exercise Name for LE strengthening- arms on lap>front> across chest, gd eccentric control Resistance AROM Equipment Used 20 blue foam cushion, progressed to 18 chair Reps/Minutes 2x10, rest then for time 3 reps in 27.87 sec Comments improved weight shifting today Gait Training Gait Activity FGA Description FGA Device Used none Level of Assistance SBA Surface tile, carpet, stairs Distance/Duration 8 minutes Treatment Focus assessment Comments representing improvement Neuro Re-Education Treatment Balance Activities static stance foam Surface 2 blue foam Reps/Duration 10 min Comments WBOS, NBOS, head turns/nods, increasing tempo of head movements Self-Care/Home Management Treatment Education Patient Education Posture PT-OP-T Assessment and Plan Start: 10/30/20 08:48 Freq: Status: Active Protocol: Document 12/18/20 12:00 AW (Rec: 12/18/20 12:07 AW [id number]) Physical Therapy Assessment Goals Three Impairment pain with prolonged standing Short Term Goal (STG) Pt will tolerate walking 30 minutes with 4/10 or less ankle/foot pain 12/18/20 - Pt is currently walking her dog ~15 minutes at a time with 3-4/10 foot/ankle pain 12/12/20: progressing: still gets ankle pain periodically when on feet or walked alot 5- 6/10 pain. STG Duration 6 weeks - 12/11/20 Custodial Goal (LTG) Pt will walk uneven terrain 30 minutes with 3/10 or less ankle foot pain. LTG Duration 12 weeks - 01/22/21 Two Impairment balance Short Term Goal (STG) Pt will improve Functional Gait Assessment score to 21/30 or better for reduction in falls risk 12/12/20: progressin12/18/20 MET / today in clinic STG Duration 6 weeks - 12/11/20 Manager Rfid Goal (LTG) Pt will improve FGA score to 24/30 or better for further reduction in falls risk. One Impairment lacks HEP Short Term Goal (STG) Pt will be independent with HEP to support therapy services provided in clinic. 12/18/20 MET STG Duration 4 weeks - 11/27/20 Manager Rfid Goal (LTG) Pt will be independent with walking program to sustain therapy gains. LTG Duration 12 weeks - 01/22/21 Progress Towards Goals Progress Towards Goals Progressing Toward Goals Progress Comments Pt has improved her dynamic balance from 1830 to 21/30 on FGA. She remains unable to perform tandem walking but other areas improved. Her foot /ankle pain is relatively stable without change. Assessment Summary Assessment Treatment focused on sit to stand, Functional Gait Assessment, and balance activities. Pt shows improvement with dynamic balance as evidenced by 21/30 score on FGA. Physical Therapy Plan Frequency and Duration Duration of Treatment 12 weeks Plan of Care Start Date 10/30/20 Plan of Care End Date 01/22/21 Therapeutic Interventions Therapeutic Interventions Balance Training,Gait Training ,Home Exercise Program,Joint Mobilizations,Manual Therapy, Neuromuscular Re-education, Orthotic/Prosthetic Management ,Patient/Caregiver Education, Self-Care/Home Management, Sensory Integration,Soft Tissue Mobilization,Taping, Therapeutic Activities, Therapeutic Exercises Modalities Cold Pack/Ice Massage,Electric Stimulation,Hot Packs Next Visit Focus/Plan Next Note Type Treatment Note Next Visit Plan Continue sit<>stands, awareness of posture and progress per POC. POC: continue stair training, dynamic balance training, progress standing exercises for HEP
--- NOTE | 2020-12-18 12:08 | PT.OTN ---
Current Diagnoses Difficulty in walking, not elsewhere classified (12/18/20) Unsteadiness on feet (12/18/20) Abnormal posture (12/18/20) Physical Therapy Treatment Note PT-OP-A Visit Information Start: 10/30/20 08:48 Freq: Status: Active Protocol: Document 12/18/20 12:00 AW (Rec: 12/18/20 12:01 AW [id number]) Out-Patient Physical Therapy Visit Information Visit Information Visit Type Progress Note Visit Start Time 11:15 Visit Stop Time 12:00 Total Visit Minutes 45 Visit Number 12 Number of AIRPORT UTILITY WORKER Visits 0 Evaluation Information Evaluation Date 10/30/20 Precautions Precautions Falls risk PT-OP-B Current Condition Start: 10/30/20 08:48 Freq: Status: Active Protocol: Document 10/30/20 15:15 AW (Rec: 10/30/20 14:53 AW [id number]) Current Condition History of Current Condition Onset Date years but with exacerbation in the past 6 months Current Complaints balance, R LE pain, B foot and ankle pain History of Current Condition Nevaeh states she has been experiencing bilateral foot and ankle pain which is chronic for her but worse in the past six months. She notes she has been more sedentary than usual over the past year and has likely been somewhat depressed. Pt sees podiatry for foot concerns including bilateral hallux valgus and bunions. She uses custom orthotics which provide medial arch support and posting of the calcaneus. She also uses MT head bars. Pain is alleviated by rest, heat, and OTC medications. Standing long periods or prolonged activities increase her pain. 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 She still uses a single trekking pole for walking unevent terrain but often forgets. She is now reporting posterior right leg pain (up to 6/10) which is limiting her ambulation tolerance. This pain is ok in sitting, worse with standing or lying in bed. Her sleep has been more disturbed recently and she reports difficulty both falling asleep and staying asleep. Prior Treatments and Tests R TKE March 2020 which rehabbed well. Pt previously had PT aimed at right ankle and balance deficits. Future Testing and Treatments Planned Pt plans to see a neurologist due to short term memory concerns. Treatment Goals Patient/Caregiver Goals Be able to walk better, for longer duration, and without pain so that she can enjoy a planned December trip to [place] and [place]. Current Functional Impairments (Reported) Functional Limitations- Mobility/Gait Can walk a maximum of 15-20 minutes without pain Functional Limitations- Recreation/ Limited in gardening, getting Hobbies up and down from the floor. Personal Factors Other Personal Factors That May Effect (-) short term memory loss Therapy/Recovery (-) self-reported depression (+) supportive family PT-OP-C Subjective Start: 10/30/20 08:48 Freq: Status: Active Protocol: Document 12/18/20 12:00 AW (Rec: 12/18/20 12:01 AW [id number]) OP-PT Subjective Patient Comments Patient Comments Pt reports improvement with sciatic symptoms since doing more rolling with a racquetball at home. Patient Reported Progress Improving PT-OP-D Balance Start: 10/30/20 08:48 Freq: Status: Active Protocol: Document 10/30/20 15:15 AW (Rec: 10/30/20 17:41 AW [email or web address]) OP-PT Balance Assessment Sitting Balance Static Sitting Balance Ability Good Dynamic Sitting Balance Ability Good Standing Balance Static Standing Balance Ability Fair Dynamic Standing Balance Ability Poor Device Used no AD Balance Tests Single Limb Standing Single Limb- Right <1 sec Single Limb- Left <1 sec Semi-Tandem Standing Semi-Tandem Standing Balance unable to get into position or hold position without assist Other Other Balance Tests Performed Functional Gait Assessment: . Scanned to [facility] [place] Fall Scale Copyright Permission PT-OP-G Mobility & Gait Start: 10/30/20 08:48 Freq: Status: Active Protocol: Document 10/30/20 15:15 AW (Rec: 10/30/20 17:41 AW [email or web address]) OP Mobility Evaluation Transfers Sit to Stand requires UE support if surface 20 or lower Functional Movements Squats able to retrieve items from the floor but without significant hip flexion OP Gait Assessment Gait Gait Assistance Required: Independent Distance (Feet) 200 Assistive Devices Assistive Device None Orthotic/Prosthetic Devices or Brace: Yes Gait Deviations General Gait Pattern Antalgic,Flexed Trunk,Lateral Trunk Lean,Wide Based Gait Comments Gait Comments Able to ambulate without assistive device but with decreased foot clearance bilaterally (RLE more affected than LLE), pronated feet ( excessive calcaneal valgus in standing), and decreased LLE stance time. Stair Climbing Evaluation Devices Stair Climbing Assistive Devices Left Railing,Right Railing Technique/Endurance Stair Climbing Direction Ascend and Descend Stair Climbing Technique Step Over Step Number of Steps Climbed 4 Stair Climbing Set # Repetitions (reps) 2 PT-OP-L Special Tests Start: 10/30/20 08:48 Freq: Status: Active Protocol: Document 10/30/20 15:15 AW (Rec: 10/30/20 18:11 AW [email or web address]) Special Tests Lumbar Spine Special Tests Slump Test Results reproduces pain in posterior RLE in least provocative position PT-OP-M Strength Start: 10/30/20 08:48 Freq: Status: Active Protocol: Document 10/30/20 15:15 AW (Rec: 10/30/20 17:50 AW [email or web address]) Hip Strength Hip Manual Muscle Testing Left Flexion (L2) 3+ Fair+ Abduction 3+ Fair+ External Rotation 4 Good Internal Rotation 4 Good Right Flexion (L2) 3+ Fair+ Abduction 3+ Fair+ External Rotation 3+ Fair+ Internal Rotation 4 Good Knee Strength Knee Manual Muscle Testing Right Flexion (S2) 4+ Good+ Extension (L3) 4 Good Left Flexion (S2) 4+ Good+ Extension (L3) 4 Good Ankle/Foot Strength Ankle and Foot Manual Muscle Testing Right Dorsiflexion (L4) 4+ Good+ Plantarflexion (S1) 4 Good Inversion 4 Good Eversion (S1) 4 Good Left Dorsiflexion (L4) 4+ Good+ Plantarflexion (S1) 4 Good Inversion 4 Good Eversion (S1) 4 Good PT-OP-Q Treatments Start: 10/30/20 08:48 Freq: Status: Active Protocol: Document 12/18/20 12:00 AW (Rec: 12/18/20 12:01 AW [id number]) Therapeutic Exercises Standing Exercises wall posture Standing Exercise Name roll ups Reps/Minutes x5, hold 10 sec Comments cued awareness of neutral LS and CS best can w/ TA fac- good form pec stretch/scap retraction Standing Exercise Name with dowel Resistance AROM Reps/Minutes 20 sec x3 Comments good form and feedback stretch sit<>stands Standing Exercise Name for LE strengthening- arms on lap>front> across chest, gd eccentric control Resistance AROM Equipment Used 20 blue foam cushion, progressed to 18 chair Reps/Minutes 2x10, rest then for time 3 reps in 27.87 sec Comments improved weight shifting today Gait Training Gait Activity FGA Description FGA Device Used none Level of Assistance SBA Surface tile, carpet, stairs Distance/Duration 8 minutes Treatment Focus assessment Comments representing improvement Neuro Re-Education Treatment Balance Activities static stance foam Surface 2 blue foam Reps/Duration 10 min Comments WBOS, NBOS, head turns/nods, increasing tempo of head movements Self-Care/Home Management Treatment Education Patient Education Posture PT-OP-T Assessment and Plan Start: 10/30/20 08:48 Freq: Status: Active Protocol: Document 12/18/20 12:00 AW (Rec: 12/18/20 12:07 AW [id number]) Physical Therapy Assessment Goals Three Impairment pain with prolonged standing Short Term Goal (STG) Pt will tolerate walking 30 minutes with 4/10 or less ankle/foot pain 12/18/20 - Pt is currently walking her dog ~15 minutes at a time with 3-4/10 foot/ankle pain 12/12/20: progressing: still gets ankle pain periodically when on feet or walked alot 5- 6/10 pain. STG Duration 6 weeks - 12/11/20 Fpc Goal (LTG) Pt will walk uneven terrain 30 minutes with 3/10 or less ankle foot pain. LTG Duration 12 weeks - 01/22/21 Two Impairment balance Short Term Goal (STG) Pt will improve Functional Gait Assessment score to 21/30 or better for reduction in falls risk 12/12/20: progressin12/18/20 MET / today in clinic STG Duration 6 weeks - 12/11/20 Teaching Music Lessons Goal (LTG) Pt will improve FGA score to 24/30 or better for further reduction in falls risk. One Impairment lacks HEP Short Term Goal (STG) Pt will be independent with HEP to support therapy services provided in clinic. 12/18/20 MET STG Duration 4 weeks - 11/27/20 Teaching Music Lessons Goal (LTG) Pt will be independent with walking program to sustain therapy gains. LTG Duration 12 weeks - 01/22/21 Progress Towards Goals Progress Towards Goals Progressing Toward Goals Progress Comments Pt has improved her dynamic balance from 1830 to 21/30 on FGA. She remains unable to perform tandem walking but other areas improved. Her foot /ankle pain is relatively stable without change. Assessment Summary Assessment Treatment focused on sit to stand, Functional Gait Assessment, and balance activities. Pt shows improvement with dynamic balance as evidenced by 21/30 score on FGA. Physical Therapy Plan Frequency and Duration Duration of Treatment 12 weeks Plan of Care Start Date 10/30/20 Plan of Care End Date 01/22/21 Therapeutic Interventions Therapeutic Interventions Balance Training,Gait Training ,Home Exercise Program,Joint Mobilizations,Manual Therapy, Neuromuscular Re-education, Orthotic/Prosthetic Management ,Patient/Caregiver Education, Self-Care/Home Management, Sensory Integration,Soft Tissue Mobilization,Taping, Therapeutic Activities, Therapeutic Exercises Modalities Cold Pack/Ice Massage,Electric Stimulation,Hot Packs Next Visit Focus/Plan Next Note Type Treatment Note Next Visit Plan Continue sit<>stands, awareness of posture and progress per POC. POC: continue stair training, dynamic balance training, progress standing exercises for HEP
--- NOTE | 2020-12-23 11:28 | PT.OTN ---
Current Diagnoses Difficulty in walking, not elsewhere classified (12/23/20) Unsteadiness on feet (12/23/20) Abnormal posture (12/23/20) Physical Therapy Treatment Note PT-OP-A Visit Information Start: 10/30/20 08:48 Freq: Status: Active Protocol: Document 12/23/20 10:38 SP (Rec: 12/23/20 11:56 SP [id number]) Out-Patient Physical Therapy Visit Information Visit Information Visit Type Treatment Note Visit Note BRAND EXECUTIVE brought pt back late but saw for multimedia assistant, +. Visit Start Time 10:38 Visit Stop Time 11:28 Total Visit Minutes 50 Visit Number 13 Number of BRAND EXECUTIVE Visits 1 Evaluation Information Evaluation Date 10/30/20 Precautions Precautions Falls risk PT-OP-B Current Condition Start: 10/30/20 08:48 Freq: Status: Active Protocol: Document 10/30/20 15:15 AW (Rec: 10/30/20 14:53 AW [id number]) Current Condition History of Current Condition Onset Date years but with exacerbation in the past 6 months Current Complaints balance, R LE pain, B foot and ankle pain History of Current Condition Nevaeh states she has been experiencing bilateral foot and ankle pain which is chronic for her but worse in the past six months. She notes she has been more sedentary than usual over the past year and has likely been somewhat depressed. Pt sees podiatry for foot concerns including bilateral hallux valgus and bunions. She uses custom orthotics which provide medial arch support and posting of the calcaneus. She also uses MT head bars. Pain is alleviated by rest, heat, and OTC medications. Standing long periods or prolonged activities increase her pain. 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 She still uses a single trekking pole for walking unevent terrain but often forgets. She is now reporting posterior right leg pain (up to 6/10) which is limiting her ambulation tolerance. This pain is ok in sitting, worse with standing or lying in bed. Her sleep has been more disturbed recently and she reports difficulty both falling asleep and staying asleep. Prior Treatments and Tests R TKE March 2020 which rehabbed well. Pt previously had PT aimed at right ankle and balance deficits. Future Testing and Treatments Planned Pt plans to see a neurologist due to short term memory concerns. Treatment Goals Patient/Caregiver Goals Be able to walk better, for longer duration, and without pain so that she can enjoy a planned December trip to [place] and [place]. Current Functional Impairments (Reported) Functional Limitations- Mobility/Gait Can walk a maximum of 15-20 minutes without pain Functional Limitations- Recreation/ Limited in gardening, getting Hobbies up and down from the floor. Personal Factors Other Personal Factors That May Effect (-) short term memory loss Therapy/Recovery (-) self-reported depression (+) supportive family PT-OP-C Subjective Start: 10/30/20 08:48 Freq: Status: Active Protocol: Document 12/23/20 10:38 SP (Rec: 12/23/20 11:56 SP [id number]) OP-PT Subjective Patient Comments Patient Comments Pt reports R SI pain and R shld when arrived, as been using hot pad on R shld, not sure what did. The 5-6/10 pain in R shld and R glut woke her up last night and tried all stretching, rolling ball on wall, clamshells, applied biofreeze to make the pain go away and radiated down R leg so decided to sleep in chair instead for assist positioning but didn't any significant relief. PT-OP-D Balance Start: 10/30/20 08:48 Freq: Status: Active Protocol: Document 10/30/20 15:15 AW (Rec: 10/30/20 17:41 AW [email or web address]) OP-PT Balance Assessment Sitting Balance Static Sitting Balance Ability Good Dynamic Sitting Balance Ability Good Standing Balance Static Standing Balance Ability Fair Dynamic Standing Balance Ability Poor Device Used no AD Balance Tests Single Limb Standing Single Limb- Right <1 sec Single Limb- Left <1 sec Semi-Tandem Standing Semi-Tandem Standing Balance unable to get into position or hold position without assist Other Other Balance Tests Performed Functional Gait Assessment: . Scanned to [facility] [place] Fall Scale Copyright Permission PT-OP-G Mobility & Gait Start: 10/30/20 08:48 Freq: Status: Active Protocol: Document 10/30/20 15:15 AW (Rec: 10/30/20 17:41 AW [email or web address]) OP Mobility Evaluation Transfers Sit to Stand requires UE support if surface 20 or lower Functional Movements Squats able to retrieve items from the floor but without significant hip flexion OP Gait Assessment Gait Gait Assistance Required: Independent Distance (Feet) 200 Assistive Devices Assistive Device None Orthotic/Prosthetic Devices or Brace: Yes Gait Deviations General Gait Pattern Antalgic,Flexed Trunk,Lateral Trunk Lean,Wide Based Gait Comments Gait Comments Able to ambulate without assistive device but with decreased foot clearance bilaterally (RLE more affected than LLE), pronated feet ( excessive calcaneal valgus in standing), and decreased LLE stance time. Stair Climbing Evaluation Devices Stair Climbing Assistive Devices Left Railing,Right Railing Technique/Endurance Stair Climbing Direction Ascend and Descend Stair Climbing Technique Step Over Step Number of Steps Climbed 4 Stair Climbing Set # Repetitions (reps) 2 PT-OP-L Special Tests Start: 10/30/20 08:48 Freq: Status: Active Protocol: Document 10/30/20 15:15 AW (Rec: 10/30/20 18:11 AW [email or web address]) Special Tests Lumbar Spine Special Tests Slump Test Results reproduces pain in posterior RLE in least provocative position PT-OP-M Strength Start: 10/30/20 08:48 Freq: Status: Active Protocol: Document 10/30/20 15:15 AW (Rec: 10/30/20 17:50 AW [email or web address]) Hip Strength Hip Manual Muscle Testing Left Flexion (L2) 3+ Fair+ Abduction 3+ Fair+ External Rotation 4 Good Internal Rotation 4 Good Right Flexion (L2) 3+ Fair+ Abduction 3+ Fair+ External Rotation 3+ Fair+ Internal Rotation 4 Good Knee Strength Knee Manual Muscle Testing Right Flexion (S2) 4+ Good+ Extension (L3) 4 Good Left Flexion (S2) 4+ Good+ Extension (L3) 4 Good Ankle/Foot Strength Ankle and Foot Manual Muscle Testing Right Dorsiflexion (L4) 4+ Good+ Plantarflexion (S1) 4 Good Inversion 4 Good Eversion (S1) 4 Good Left Dorsiflexion (L4) 4+ Good+ Plantarflexion (S1) 4 Good Inversion 4 Good Eversion (S1) 4 Good PT-OP-Q Treatments Start: 10/30/20 08:48 Freq: Status: Active Protocol: Document 12/23/20 10:38 SP (Rec: 12/23/20 11:56 SP [id number]) Therapeutic Exercises Supine Exercises LTR Supine Exercise Name R>L Side right Reps/Minutes 30 x3 Comments good lateral hip stretch on R needed today PF stretch Supine Exercise Name ankle over opp knee and knee toward opp shld (supine today) Side bilateral Reps/Minutes 30 x2 (reviewed HEP) Comments pain free- no change in discomfort Standing Exercises pec stretch/scap retraction Standing Exercise Name arms at side this tx (previous clasp hands, dowel ) Resistance AROM Equipment Used focus shld alignment Reps/Minutes 20 sec x3 Comments good form and feedback pec stretch Gait Training Gait Activity dynamic gait Description head turns, quick stop/ turns, high knees, large steps Device Used 0 Level of Assistance CGA Surface firm Distance/Duration 30 ft multiple laps Treatment Focus improve stability and balance recovery Comments occasional scissor stepping, improved with cuing safe pacing, awareness of COG over MICAH space between feet, decreased stance time over RLE during high knees stair mgt Comments ascend/descend 4 stairs x4 sets while PRN HR cues for tall but more forward trunk to decrease retro COG and // feet to decrease ER of L ankle descend. Manual Therapy Treatment Soft Tissue Mobilization STMs Body Location R pirformis, glut med Mobilization Type Cross-Friction,Rolling, Strumming,Trigger Point Release Intensity/Depth Moderate Body Position Sidelying Comments not going down leg not but still sore spot in R glut Neuro Re-Education Treatment Balance Activities static stance foam Surface floor and 2 blue foam Reps/Duration 10 min Comments WBOS, NBOS, stagger, head turns/nods, increasing tempo of head movements, arms swings , EC 30 NBOS floor CG- light Shadia cued for COG, unable maintain balance EC uneven surface, Mod A Self-Care/Home Management Treatment Activities Self-Care/Home Management Activities Time spent (10 min) on L side sleeping w/ use of pillow to support R hip and R shld alignment. Pillow placement between BLE , between arms, improved hip and shld comfort. Also discussed alignment during standing at sink with accessories to elevate and she wants to get higher with more firm recliner for comfort and ease to get out of. Discussed and provided same hand out to daughter for awareness. PT-OP-T Assessment and Plan Start: 10/30/20 08:48 Freq: Status: Active Protocol: Document 12/23/20 10:38 SP (Rec: 12/23/20 11:56 SP [id number]) Physical Therapy Assessment Goals Three Impairment pain with prolonged standing Short Term Goal (STG) Pt will tolerate walking 30 minutes with 4/10 or less ankle/foot pain 12/18/20 - Pt is currently walking her dog ~15 minutes at a time with 3-4/10 foot/ankle pain 12/12/20: progressing: still gets ankle pain periodically when on feet or walked alot 5- 6/10 pain. STG Duration 6 weeks - 12/11/20 Signal Circuit Designer Goal (LTG) Pt will walk uneven terrain 30 minutes with 3/10 or less ankle foot pain. LTG Duration 12 weeks - 01/22/21 Two Impairment balance Short Term Goal (STG) Pt will improve Functional Gait Assessment score to 21/30 or better for reduction in falls risk 12/12/20: progressin12/18/20 MET today in clinic STG Duration 6 weeks - 12/11/20 Fpc Goal (LTG) Pt will improve FGA score to 24/30 or better for further reduction in falls risk. One Impairment lacks HEP Short Term Goal (STG) Pt will be independent with HEP to support therapy services provided in clinic. 12/18/20 MET STG Duration 4 weeks - 11/27/20 (MET 12/18/20 ) Signal Circuit Designer Goal (LTG) Pt will be independent with walking program to sustain therapy gains. LTG Duration 12 weeks - 01/22/21 Assessment Summary Assessment Tx focused on pain relief R hip> R shld utilizing pillow positioning, manual to R hip ERs/ ABDs with decrease from 4 /10 to 2/10 pain. Pt responded well to tx. Cuing required for slower/ safe pacing, increase wt distribution between BLE for improved stability during dynamic gait, stairs. Physical Therapy Plan Frequency and Duration Duration of Treatment 12 weeks Plan of Care Start Date 10/30/20 Plan of Care End Date 01/22/21 Therapeutic Interventions Therapeutic Interventions Balance Training,Gait Training ,Home Exercise Program,Joint Mobilizations,Manual Therapy, Neuromuscular Re-education, Orthotic/Prosthetic Management ,Patient/Caregiver Education, Self-Care/Home Management, Sensory Integration,Soft Tissue Mobilization,Taping, Therapeutic Activities, Therapeutic Exercises Modalities Cold Pack/Ice Massage,Electric Stimulation,Hot Packs Next Visit Focus/Plan Next Note Type Treatment Note Next Visit Plan Next tx: assess R hip and shld pain, manual/ stretching and balance last tx. POC: continue sit<>stands, stair training, dynamic balance training, progress standing exercises for HEP
--- NOTE | 2020-12-30 08:14 | PT-OP ANOTE ---
Pt's daughter called, cancelling further appts due to pt fracturing her patella and went to ER yesterday, will need to reevaluated when able/ cleared to continue PT.
== END 2021-07-01 08:46 ==
LOC: PHYS 10:30
PROVIDERS: PCP Family Medicine; Referring Provider Family Medicine; Visit Provider Family Medicine
DX: R26.81 Unsteadiness on feet (principal); R29.3 Abnormal posture
CPT/HCPCS: 97110; 97112; 97116; 97140; 97162; 97530; 97535

== ENCOUNTER 2020-12-29 15:17 | Emergency (ER) | payer MEDICARE, OTHER, SELFPAY ==
[2020-04-10 17:30] VITALS: BMI 29.1
[2020-12-29 15:27] VITALS: BP 181/80; PULSE 75; RESP 20; TEMP 36.6; O2SAT 97
--- NOTE | 2020-12-29 15:31 | DI.RAD.S_ITS ---
PROCEDURE: XR KNEE LT 3V INDICATIONS: Fall TECHNIQUE: 3 views of the knee were acquired. COMPARISON: [facility], CR, XR KNEE ARTHRITIC SERIES RT, 01/03/2019, 9:41. [facility], TATE, XR KNEE RT 1TO2V, 04/10/2020, 14:16. FINDINGS: Bones: Status post knee arthroplasty. There is a moderately displaced comminuted fracture of the mid/superior patella, of uncertain acuity. No suspicious bony lesions. Soft tissues: No joint effusion. No suspicious soft tissue calcifications. IMPRESSION: 1. Knee arthroplasty. 2. Age-indeterminate patellar fracture. Dictated by: Megan Harp M.D. on 12/29/2020 at 14:51 Approved by: Megan Harp M.D. on 12/29/2020 at 14:52
--- NOTE | 2020-12-29 18:01 | PC.NURSE ---
patient states that pain is 2/10 under rest but becomes intense pain when she flexes her leg.
--- NOTE | 2020-12-29 18:03 | ED_ITS ---
HPI - Extremity Injury (Lower) General Chief Complaint: Extremity Injury, Lower Stated Complaint: FALL RIGHT ARM AND LEFT KNEE INJURY Time Seen by Provider: 12/29/20 18:02 Source: patient Mode of arrival: Wheelchair Limitations: no limitations History of Present Illness HPI Narrative: 80-year-old female nonsmoker with noncontributory medical history presents with her daughter and a chief complaint of left knee pain after a ground level fall. She had been walking and tripped and fell forward onto her left knee and now has significant pain with any range of motion or palpation. She denies any head neck or back pain. She denies any prodromal symptoms causing the fall such as dizziness, weakness or lightheadedness. Related Data Home Medications Medication Instructions Recorded Confirmed multivitamin 1 cap PO DAILY #0 08/12/12 04/10/20 omeprazole 20 mg capsule,delayed 20 mg PO DAILY #0 08/12/12 04/10/20 release temazepam 30 mg capsule 30 mg PO BEDTIME #0 08/12/12 04/10/20 melatonin 5 mg capsule 5 mg PO BEDTIME cap 07/30/19 04/10/20 ezetimibe 10 mg tablet 10 mg PO QPM 11/29/19 04/10/20 levothyroxine 50 mcg tablet 50 mcg PO DAILY 11/29/19 04/10/20 oxybutynin chloride 10 mg 10 mg PO DAILY 11/29/19 04/10/20 tablet,extended release 24 hr paroxetine HCl 40 mg tablet 20 mg PO BEDTIME 11/29/19 04/10/20 Previous Rx's Medication Instructions Recorded acetaminophen 325 mg tablet 650 mg PO TID #60 tab 04/11/20 aspirin 81 mg tablet,delayed 81 mg PO BID #60 tab 04/11/20 release ibuprofen 400 mg tablet 400 mg PO Q4H #60 tab 04/11/20 hydrocodone 5 mg-acetaminophen 325 1 tab PO Q4-6H PRN #20 tab 12/29/20 mg tablet Allergies Allergy/AdvReac Type Severity Reaction Status Date / Time No Known Drug Allergies Allergy Verified 04/10/20 11:17 Review of Systems Review of Systems Narrative: GENERAL: Denies chills, fatigue, malaise, fever, sweats. HEENT: Denies sinus pain, ear pain, sore throat, difficulty swallowing, dizziness. RESPIRATORY: Denies dyspnea, cough, wheezing, hemoptysis, sputum. CARDIOVASCULAR: Denies chest pain, palpitations, orthopnea, edema, GASTROINTESTINAL: Denies nausea, vomiting, abdominal pain, diarrhea, constipati on, melena. : Denies dysuria, frequency, incontinence, hematuria, urinary retention. MUSCULOSKELETAL see HPI SKIN: Denies rash, skin lesions, or other NEUROLOGIC: Denies weakness, headache, numbness, change in speech, confusion, seizures, incoordination. PSYCHIATRIC: No concerning psychosocial issues. 12 point review of systems is negative except for those stated above Patient History Medical History Acid reflux Depression HLD (hyperlipidemia) Hypothyroidism Osteoarthritis Toe infection (11/2019) Surgical History History of arthroplasty of left knee (08/22/12) History of back surgery (2005) Hx of appendectomy Hx of bilateral cataract extraction Hx of eye surgery Hx of tonsillectomy Social History household members: children Smoking Status: Never smoker alcohol intake: current Smoking Status: Never smoker alcohol intake frequency: holidays/special occasions only Substance Use Type: does not use Exam Narrative Exam Narrative: GENERAL: [80] year old patient appears stated age. Well- developed patient, in mild distress. HEAD: Atraumatic. Normocephalic. EYES: Pupils equal round and reactive. Extraocular motions intact. No scleral icterus. No injection or drainage. ENT: Nose without bleeding, purulent drainage. Throat without erythema, tonsillar hypertrophy or exudate. Airway patent. NECK: Trachea midline. Non tender CARDIOVASCULAR: Regular rate and rhythm without murmurs, gallops, or rubs. RESPIRATORY: Clear to auscultation. Breath sounds equal bilaterally. No wheezes, rales, or rhonchi. GASTROINTESTINAL: Abdomen soft, non-tender, nondistended. EXTREMITIES: Left knee tender to palpation in the anterior aspect, mild effusion, no significant abrasion or laceration. Closed, isolated neurovascular intact BACK: Nontender without deformity or crepitance. No flank tenderness. NEURO: AOx3. SKIN: No rash or erythema of visible areas Initial Vital Signs Initial Vital Signs: Vital Signs Temperature 97.9 F 08/01/21 15:27 Pulse Rate 75 12/29/20 15:27 Respiratory Rate 20 12/29/20 15:27 Blood Pressure 181/80 H 12/29/20 15:27 Pulse Oximetry 97 12/29/20 15:27 Procedures Orthopedic Splinting/Casting Injury #1: Lower Extremity Injury Location: knee Lower Extremity Immobilizer: knee immobilizer Other Orthopedic Equipment: walker (jose getting her a walker) Course Orders Ordered: Discontinued Medications Hydrocodone Bitart/Acetaminophen (Hydrocodone/Acet 5/325 Prepack) 1 bottle MISC SEEINSTR ONE Stop: 12/29/20 19:37 Last Admin: 12/29/20 19:43 Dose: 1 bottle Documented by: MARITO Angulo Consultation #1: calibration laboratory technician ortho (Dr. Gallegos) recommends knee immobilizer, weight- bearing as tolerated and follow-up Vital Signs Vital signs: Vital Signs - 8 hr 12/29/20 15:27 Temperature 97.9 F Pulse Rate 75 Respiratory Rate 20 Blood Pressure 181/80 H Pulse Oximetry 97 MDM - Extremity Injury (Lower) Imaging Data Extremity x-ray #1: Radiologist's Impression: Nevaeh Rose 80 F [address] [id number] ReportSigned Patient: Nevaeh Rose GMR#: [id number]: 1940cct:[id number]/Sex: 80 / FDate of Service: 12/29/20Loc: EDAccession Number: [id number] Procedure: XR knee LT 3V Ordering Provider: Blossom Figueroa D.O. PROCEDURE: XR KNEE LT 3V INDICATIONS: Fall TECHNIQUE: 3 views of the knee were acquired. COMPARISON: [facility] [place], CR, XR KNEE ARTHRITIC SERIES RT, 01/03/2019, 9:41. [facility], CR, XR KNEE RT 1TO2V, 04/10/2020, 14:16. FINDINGS: Bones: Status post knee arthroplasty. There is a moderately displaced comminuted fracture of the mid/superior patella, of uncertain acuity. No suspicious bony lesions. Soft tissues: No joint effusion. No suspicious soft tissue calcifications. IMPRESSION: 1. Knee arthroplasty. 2. Age-indeterminate patellar fracture. Dictated by: Megan Harp M.D. on 12/29/2020 at 14:51 Approved by: Megan Harp M.D. on 12/29/2020 at 14:52 Discharge Plan Departure Patient Disposition: Home Clinical Impression: Fracture, patella Qualifiers: Encounter type: initial encounter Fracture type: closed Fracture morphology: comminuted Fracture alignment: nondisplaced Laterality: left Qualified Code(s): S82.045A - Nondisplaced comminuted fracture of left patella, initial encounter for closed fracture Instructions: DI for Patella Fracture Activity Restrictions/Additional Instructions: *You have been diagnosed with [Fractured left patella ] *What to do: *Please continue to take your regular medications as directed. [ x] New medication prescriptions sent to your pharmacy: [[facility] ] [ ] New medication written as a paper prescription [x] Tylenol and occasional Motrin for pain *Please follow up with Dr. Reyes ] of [facility] in 2-3 days, call for an appointment. Let them know you were seen in the Emergency Department and that we ask that you be seen in follow up. We will electronically transmit a record of today's note if your PCP is in our system *Return to Emergency Department if you should have any new, worsening or concerning symptoms, such as [worsening pain, significant swelling, cold extremities, numbness, tingling, weakness or other bothersome symptoms Splint Care: Wear knee immobilizer until follow up Weight bearing as tolerated Prescriptions: New hydrocodone-acetaminophen 5-325 mg tablet 1 tab PO Q4-6H PRN (Reason: pain) Qty: 20 RF: 0 No Action melatonin 5 mg capsule 5 mg PO BEDTIME RF: 0 multivitamin Capsule 1 cap PO DAILY Qty: 0 RF: 0 omeprazole 20 mg Capsule,Delayed Release(Dr/Ec) 20 mg PO DAILY Qty: 0 RF: 0 temazepam 30 mg Capsule 30 mg PO BEDTIME Qty: 0 RF: 0 acetaminophen 325 mg Tablet 650 mg PO TID Qty: 60 RF: 0 aspirin 81 mg Tablet,Delayed Release (Dr/Ec) 81 mg PO BID Qty: 60 RF: 0 ibuprofen 400 mg Tablet 400 mg PO Q4H Qty: 60 RF: 0 levothyroxine 50 mcg Tablet 50 mcg PO DAILY RF: 0 oxybutynin chloride 10 mg Tablet Extended Release 24hr 10 mg PO DAILY RF: 0 paroxetine HCl 40 mg Tablet 20 mg PO BEDTIME RF: 0 ezetimibe 10 mg Tablet 10 mg PO QPM RF: 0 Referrals: Truong Saucedo MD [Primary Care Provider] -
[2020-12-29] MEDS: HYDROCODONE/ACET 5/325 PREPACK 1 BOTTLE MISC (19:43)
[2020-12-29 19:52] VITALS: BP 175/93; PULSE 73; RESP 14; O2SAT 96
== END 2020-12-29 19:54 | disposition home or self-care (01) ==
PROVIDERS: Emergency Provider Emergency Medicine; PCP Family Medicine
DX: S82.045A Nondisplaced comminuted fracture of left patella, initial encounter for closed fracture (principal); W19.XXXA Unspecified fall, initial encounter
CPT/HCPCS: 73562; 99283

== ENCOUNTER 2021-05-29 12:15 | Outpatient (RCR) | payer MEDICARE, OTHER, SELFPAY ==
[2020-04-10 17:30] VITALS: BMI 29.1
--- NOTE | 2021-03-12 10:40 | PT.OIE ---
Current Diagnoses Unspecified fracture of left patella, initial encounter for closed fracture (03/11/21) Presence of left artificial knee joint (03/11/21) Past Medical History (Last Reviewed 01/10/21 @ 22:00 by Jes Arceo PA-C) Acid reflux Depression History of arthroplasty of left knee (08/22/12) History of back surgery (2005) HLD (hyperlipidemia) Hx of appendectomy Hx of bilateral cataract extraction Hx of eye surgery Hx of tonsillectomy Hypothyroidism Osteoarthritis Toe infection (11/2019) Past Surgical History (Last Reviewed 01/10/21 @ 22:00 by Jes Arceo PA-C) History of arthroplasty of left knee (08/22/12) History of back surgery (2005) Hx of appendectomy Hx of bilateral cataract extraction Hx of eye surgery Hx of tonsillectomy Visit Care Team Role Provider Type Truong Saucedo MD Family Provider Physician Primary Care Provider Specialty: Family Practice Address: [address] [place] [address], [address] Email: [email or web address] Brian Flynn MD Attending Provider Physician Referring Provider Specialty: Orthopedic Surgery Address: [address] [place] [address], [id number] Email: [email or web address] Physical Therapy Initial Evaluation PT-OP-A Visit Information Start: 03/11/21 13:40 Freq: Status: Active Protocol: Document 03/11/21 14:00 [facility] (Rec: 03/11/21 14:14 [facility] [id number]) Out-Patient Physical Therapy Visit Information Visit Information Visit Type Initial Evaluation Visit Start Time 14:00 Visit Stop Time 14:45 Total Visit Minutes 45 Visit Number 1 Evaluation Information Evaluation Date 03/11/21 PT-OP-B Current Condition Start: 03/11/21 13:40 Freq: Status: Active Protocol: Document 03/11/21 14:00 [facility] (Rec: 03/11/21 14:14 [facility] [id number]) Current Condition History of Current Condition Onset Date 12/29/20 History of Current Condition pt is being seen s/p L patella fracture due to a ground level fall on 12/29/20 She has been in a knee imobilizer and was just released from this a couple of weeks ago. Nevaeh's chief complaint is knee weakness and she reports difficulty fully straightening her leg. SHe doesn't feel stable and has been using a 4 wheeled walker. SHe has low pain 2/10 unless she bumbs it or twists wrong. With stairs going up is okay but going down she needs assist. She has stairs in her house and there is railing on one side only Railing is on the left. She has been able to resume driving. She has been limited on walking and she feels aprehensive. PT-OP-C Subjective Start: 03/11/21 13:40 Freq: Status: Active Protocol: Document 03/11/21 14:00 [facility] (Rec: 03/12/21 09:28 [facility] [id number]) OP-PT Pain Assessment Pain Assessment Grid Paper Pain Assessment Grid Completed Yes Location Right Back Pain Location Details right low back/SI Intensity 2 Scale Used Numeric (0 - 10) Comments Pain Comments pt reports right side of LBP returned following her patella fracture PT-OP-F Manual Assessment Start: 03/11/21 13:40 Freq: Status: Active Protocol: Document 03/11/21 14:00 [facility] (Rec: 03/12/21 09:28 [facility] [id number]) Manual Assessments Soft Tissue Assessment Soft Tissue Mobility Assessment tightness of the left quad PT-OP-G Mobility & Gait Start: 03/11/21 13:40 Freq: Status: Active Protocol: Document 03/11/21 14:00 [facility] (Rec: 03/12/21 09:28 [facility] [id number]) OP Mobility Evaluation Transfers Floor Transfers pt feels unable at this time OP Gait Assessment Assistive Devices Assistive Device 4 Wheeled Walker Gait Deviations General Gait Pattern Antalgic,Decreased Stride Length,Flexed Trunk Factors Limiting Gait Function Factors Limiting Gait Function Decreased Strength,Pain Comments Gait Comments pain in the right SI with gait , flexed forward posture, and decreased strength of the left LE Stair Climbing Evaluation Evaluation Level of Assist On Stairs Contact Guard Assistance Devices Stair Climbing Assistive Devices Left Railing,Right Railing Technique/Endurance Stair Climbing Technique Step to Step PT-OP-J Posture/Palpation/Skin Start: 03/11/21 13:40 Freq: Status: Active Protocol: Document 03/11/21 14:00 [facility] (Rec: 03/12/21 09:28 [facility] [id number]) Posture Evaluation Comments Posture Comments pt is using a 4 wheeled walker for gait, she tends to be in a forward flexed posture and needs verbal cues to straighten up Palpation Assessment Location right SI joint Palpation Findings Tenderness Palpation Details tightness in the soft tissue surrounding the R SI joint PT-OP-K Range of Motion Start: 03/11/21 13:40 Freq: Status: Active Protocol: Document 03/11/21 14:00 [facility] (Rec: 03/12/21 09:28 [facility] [id number]) Knee Goniometric Range of Motion Knee Right Flexion Active (degrees) 115 Left Knee ROM WFL No Patient Position Supine Flexion Active (degrees) 110 Flexion Passive (degrees) 112 Comments history of B knee replacement PT-OP-M Strength Start: 03/11/21 13:40 Freq: Status: Active Protocol: Document 03/11/21 14:00 [facility] (Rec: 03/12/21 09:28 [facility] [email or web address]) Knee Strength Knee Manual Muscle Testing Left Flexion (S2) 3 Fair Extension (L3) 2 Poor Comments pt is unable to perform a seated TKE with full knee extension, she is able to perform a quad set PT-OP-Q Treatments Start: 03/11/21 13:40 Freq: Status: Active Protocol: Document 03/11/21 14:00 [facility] (Rec: 03/11/21 14:53 [facility] [id number]) Cardio Equipment Recumbent Stepper (Sci-Fit) Duration (Minutes) 7 Resistance 1.5 Seat Position 10 Therapeutic Exercises Supine Exercises resisted hip abduction Reps/Minutes 2x10 Comments hooklying supine TKE Equipment Used round bolster Reps/Minutes x 10 reps supine bridges Reps/Minutes x 10 reps Comments with pelvic tilt and core engagement quad sets Reps/Minutes 10 reps hold 5 seconds each Comments HEP Sitting Exercises seated TKE Reps/Minutes 2 x 10 Comments seated on chair HEP Manual Therapy Treatment Soft Tissue Mobilization STM over the R gluteals and SI joint region Body Location right gluteals and SI joint region Mobilization Type Instrument Assisted,Myofascial Release Intensity/Depth Moderate Body Position Prone Comments good tolerance to STM, pt to use her tennis balls at home for self release against the wall PT-OP-T Assessment and Plan Start: 03/11/21 13:40 Freq: Status: Active Protocol: Document 03/11/21 14:00 [facility] (Rec: 03/12/21 09:45 [facility] [id number]) Physical Therapy Assessment Rehab Potential Rehabilitation Potential Excellent Evaluation Complexity Number of Personal Factors/Comorbidities 0 Number of Body Systems Impaired 1-2 Clinical Presentation at Evaluation Stable Impairments Impairments Activity Tolerance,Balance, Functional Activities, Functional Mobility,Gait,Pain, Posture,ROM,Soft Tissue Mobility,Strength,Tone, Transfers Goals Nevaeh is able to improve her gait with improved posture for community ambulation Impairment impaired gait Intermediate Goal (LTG) Nevaeh is able to ambulate greater than 500 feet with improved posture and no complaints of R LBP, she feels safe to ambulate with her 4 wheeled walked in the community LTG Duration 8 weeks Improve knee flexion to 115 or better on the left Impairment Decreased knee flexion 110 degrees L Short Term Goal (STG) Nevaeh presents with improved knee flexion to 115 degrees or better on the left STG Duration 4 weeks Improve strength of the left quad, Nevaeh is able to perform full seated knee extension Impairment Decreased strength of the left quad,unable to perform full knee extension Short Term Goal (STG) Nevaeh is able to perform seated full knee extension with full ROM STG Duration 5 weeks Nevaeh is able to ascend and descend a flight of stairs with railing IND Impairment needs assist on stairs, step to step gait Short Term Goal (STG) Nevaeh is able to ascend/ descend 6 steps using B railing without assist STG Duration 4 weeks Intermediate Goal (LTG) Nevaeh is able to ascend/ descend 9 steps using left hand railing only without assist LTG Duration 8 weeks Assessment Summary Assessment Nevaeh is a 80 year old female referred to PT today for rehab s/p a patella fracture of the left knee 12/29/20. Pt sustained her fracture with a GLF in her garage. She presents today ambulating with a 4 wheeled walker. She requires CGA to transfer from the chair to the bed in the treatment room without her walker. Bed mobility is Ind. AROM knee flexion is 110 on the left and 115 on the right . Nevaeh lacks strength for full knee extension 2/5 MMT. She is able to perform a quad set with small towel under her knee. Nevaeh reports no pain in her left knee however she has been experiencing right sided LBP/SI joint pain since she injured her knee. She has pain with sit-stand and transfers on her right side as well as ambulation. Nevaeh requires CGA on stairs and one of her goals is to be able to do the stairs at her house with one rail without assistance. Nevaeh has a history of B total knee replacement and a history of LBP. Nevaeh is a good candidate for PT working on balance to avoid further falls, gait training, strength of the LE especially the left quad, full knee ROM, stair training, and pain relief. Physical Therapy Plan Frequency and Duration Frequency of Treatment 2x/Week Duration of Treatment 8 Plan of Care Start Date 03/11/21 Plan of Care End Date 05/13/21 Therapeutic Interventions Therapeutic Interventions Gait Training,Home Exercise Program,Manual Therapy,Patient /Caregiver Education,Self-Care /Home Management,Soft Tissue Mobilization,Therapeutic Exercises Modalities Electric Stimulation Next Visit Focus/Plan Next Note Type Treatment Note Next Visit Plan Begin warm up on Sci fit, work on LE strengthening and left quad strengthening, knee ROM into flexion, stair training, gait training, Trial of austrian stim for quad activation with TKE
--- NOTE | 2021-03-12 10:41 | PT.OPPOC ---
Physical, Occupational & Speech Therapy At [facility] Current Diagnoses Unspecified fracture of left patella, initial encounter for closed fracture (03/11/21) Presence of left artificial knee joint (03/11/21) Visit Care Team Role Provider Type Truong Saucedo MD Family Provider Physician Primary Care Provider Specialty: Family Practice Address: [facility] [place], [address] Email: [email or web address] Brian Flynn MD Attending Provider Physician Referring Provider Specialty: Orthopedic Surgery Address: [address] [place] [address], [address] Email: [email or web address] Plan Of Care PT-OP-T Assessment and Plan Start: 03/11/21 13:40 Freq: Status: Active Protocol: Document 03/11/21 14:00 [facility] (Rec: 03/12/21 09:45 [facility] [id number]) Physical Therapy Assessment Rehab Potential Rehabilitation Potential Excellent Evaluation Complexity Number of Personal Factors/Comorbidities 0 Number of Body Systems Impaired 1-2 Clinical Presentation at Evaluation Stable Impairments Impairments Activity Tolerance,Balance, Functional Activities, Functional Mobility,Gait,Pain, Posture,ROM,Soft Tissue Mobility,Strength,Tone, Transfers Goals Nevaeh is able to improve her gait with improved posture for community ambulation Impairment impaired gait Half-Way Goal (LTG) Nevaeh is able to ambulate greater than 500 feet with improved posture and no complaints of R LBP, she feels safe to ambulate with her 4 wheeled walked in the community LTG Duration 8 weeks Improve knee flexion to 115 or better on the left Impairment Decreased knee flexion 110 degrees L Short Term Goal (STG) Nevaeh presents with improved knee flexion to 115 degrees or better on the left STG Duration 4 weeks Improve strength of the left quad, Nevaeh is able to perform full seated knee extension Impairment Decreased strength of the left quad,unable to perform full knee extension Short Term Goal (STG) Nevaeh is able to perform seated full knee extension with full ROM STG Duration 5 weeks Nevaeh is able to ascend and descend a flight of stairs with railing IND Impairment needs assist on stairs, step to step gait Short Term Goal (STG) Nevaeh is able to ascend/ descend 6 steps using B railing without assist STG Duration 4 weeks Digital Asset Specialist Goal (LTG) Nevaeh is able to ascend/ descend 9 steps using left hand railing only without assist LTG Duration 8 weeks Assessment Summary Assessment Nevaeh is a 80 year old female referred to PT today for rehab s/p a patella fracture of the left knee 12/29/20. Pt sustained her fracture with a GLF in her garage. She presents today ambulating with a 4 wheeled walker. She requires CGA to transfer from the chair to the bed in the treatment room without her walker. Bed mobility is Ind. AROM knee flexion is 110 on the left and 115 on the right . Nevaeh lacks strength for full knee extension 2/5 MMT. She is able to perform a quad set with small towel under her knee. Nevaeh reports no pain in her left knee however she has been experiencing right sided LBP/SI joint pain since she injured her knee. She has pain with sit-stand and transfers on her right side as well as ambulation. Nevaeh requires CGA on stairs and one of her goals is to be able to do the stairs at her house with one rail without assistance. Nevaeh has a history of B total knee replacement and a history of LBP. Nevaeh is a good candidate for PT working on balance to avoid further falls, gait training, strength of the LE especially the left quad, full knee ROM, stair training, and pain relief. Physical Therapy Plan Frequency and Duration Frequency of Treatment 2x/Week Duration of Treatment 8 Plan of Care Start Date 03/11/21 Plan of Care End Date 05/13/21 Therapeutic Interventions Therapeutic Interventions Gait Training,Home Exercise Program,Manual Therapy,Patient /Caregiver Education,Self-Care /Home Management,Soft Tissue Mobilization,Therapeutic Exercises Modalities Electric Stimulation Next Visit Focus/Plan Next Note Type Treatment Note Next Visit Plan Begin warm up on Sci fit, work on LE strengthening and left quad strengthening, knee ROM into flexion, stair training, gait training, Trial of venezuel[place] stim for quad activation with TKE Plan of Care Dates Plan of Care Start Date 03/11/21 Plan of Care End Date 05/13/21 Electronically Signed by: Shalonda Moran, PT 03/12/21 104 Please Sign and Return: I have reviewed this Plan of Care and certify that the skilled therapy services above are required to meet the patient?s needs. Physician Signature Date Printed Name and Credentials Clinical Instructor Signature Printed Name and Credentials
--- NOTE | 2021-03-13 14:32 | PT.OTN ---
Current Diagnoses Unspecified fracture of left patella, initial encounter for closed fracture (03/13/21) Presence of left artificial knee joint (03/13/21) Physical Therapy Treatment Note PT-OP-A Visit Information Start: 03/11/21 13:40 Freq: Status: Active Protocol: Document 03/13/21 13:48 SP (Rec: 03/13/21 16:01 SP [id number]) Out-Patient Physical Therapy Visit Information Visit Information Visit Type Treatment Note Visit Start Time 13:48 Visit Stop Time 14:32 Total Visit Minutes 44 Visit Number 2 Number of ORTHODONTIC ASSISTANT Visits 1 Evaluation Information Evaluation Date 03/11/21 PT-OP-B Current Condition Start: 03/11/21 13:40 Freq: Status: Active Protocol: Document 03/11/21 14:00 [facility] (Rec: 03/11/21 14:14 [facility] [id number]) Current Condition History of Current Condition Onset Date 12/29/20 History of Current Condition pt is being seen s/p L patella fracture due to a ground level fall on 12/29/20 She has been in a knee imobilizer and was just released from this a couple of weeks ago. Nevaeh's chief complaint is knee weakness and she reports difficulty fully straightening her leg. SHe doesn't feel stable and has been using a 4 wheeled walker. SHe has low pain 2/10 unless she bumbs it or twists wrong. With stairs going up is okay but going down she needs assist. She has stairs in her house and there is railing on one side only Railing is on the left. She has been able to resume driving. She has been limited on walking and she feels aprehensive. PT-OP-C Subjective Start: 03/11/21 13:40 Freq: Status: Active Protocol: Document 03/13/21 13:48 SP (Rec: 03/13/21 16:01 SP [id number]) OP-PT Subjective Patient Comments Patient Comments Pt stated feels like leaning over walking using 4WW and uses when goes to get mail, L quad feels weak and doesn't always support being straight when walking so holds onto furniture walking for safety. She states uses SPC in house when needs for extra support. Pt stated today was the first week without caregivers and making own bed. PT-OP-F Manual Assessment Start: 03/11/21 13:40 Freq: Status: Active Protocol: Document 03/11/21 14:00 [facility] (Rec: 03/12/21 09:28 [facility] [email or web address]) Manual Assessments Soft Tissue Assessment Soft Tissue Mobility Assessment tightness of the left quad PT-OP-G Mobility & Gait Start: 03/11/21 13:40 Freq: Status: Active Protocol: Document 03/11/21 14:00 [facility] (Rec: 03/12/21 09:28 [facility] [email or web address]) OP Mobility Evaluation Transfers Floor Transfers pt feels unable at this time OP Gait Assessment Assistive Devices Assistive Device 4 Wheeled Walker Gait Deviations General Gait Pattern Antalgic,Decreased Stride Length,Flexed Trunk Factors Limiting Gait Function Factors Limiting Gait Function Decreased Strength,Pain Comments Gait Comments pain in the right SI with gait , flexed forward posture, and decreased strength of the left LE Stair Climbing Evaluation Evaluation Level of Assist On Stairs Contact Guard Assistance Devices Stair Climbing Assistive Devices Left Railing,Right Railing Technique/Endurance Stair Climbing Technique Step to Step PT-OP-J Posture/Palpation/Skin Start: 03/11/21 13:40 Freq: Status: Active Protocol: Document 03/11/21 14:00 [facility] (Rec: 03/12/21 09:28 [facility] [email or web address]) Posture Evaluation Comments Posture Comments pt is using a 4 wheeled walker for gait, she tends to be in a forward flexed posture and needs verbal cues to straighten up Palpation Assessment Location right SI joint Palpation Findings Tenderness Palpation Details tightness in the soft tissue surrounding the R SI joint PT-OP-K Range of Motion Start: 03/11/21 13:40 Freq: Status: Active Protocol: Document 03/13/21 13:48 SP (Rec: 03/13/21 16:01 SP [id number]) Knee Goniometric Range of Motion Knee Right Knee ROM WFL No Patient Position Supine Flexion Active (degrees) 140 Left Knee ROM WFL No Patient Position Supine Flexion Active (degrees) 134 Comments history of B knee replacement PT-OP-M Strength Start: 03/11/21 13:40 Freq: Status: Active Protocol: Document 03/11/21 14:00 [facility] (Rec: 03/12/21 09:28 [facility] [email or web address]) Knee Strength Knee Manual Muscle Testing Left Flexion (S2) 3 Fair Extension (L3) 2 Poor Comments pt is unable to perform a seated TKE with full knee extension, she is able to perform a quad set PT-OP-Q Treatments Start: 03/11/21 13:40 Freq: Status: Active Protocol: Document 03/13/21 13:48 SP (Rec: 03/13/21 16:01 SP [id number]) Cardio Equipment Recumbent Stepper (Sci-Fit) Duration (Minutes) 7 Resistance 1.5 Seat Position 10 Other LEs on ly Therapeutic Exercises Supine Exercises resisted hip abduction Resistance YTB (#2 loop has at home using ) Reps/Minutes 2x10 Comments hooklying supine TKE Supine Exercise Name performed with [place] stim today. Side left Equipment Used SAQ over large black bolster Reps/Minutes 8 min 10/10 on off Comments good performance supine bridges Supine Exercise Name reviewed HEP (has hand out) Resistance AROM Reps/Minutes 3 sec hold x15 reps Comments with pelvic tilt and core engagement- improved stability with reps Sitting Exercises seated TKE Reps/Minutes 2 x 10 Comments seated on chair HEP Gait Training Gait Activity gait w/ 4WW Device Used 4WW Level of Assistance S Surface firm Distance/Duration 170 ft, 100 ft Treatment Focus taller posture, light WB pressure on handles, equal dian Comments elevated 4WW 1 knotch for proper fit height, improved, still needs cues for maintaining complete end range upright shoulders during gait for awareness at home and community walking, does still have light pressure on handles during LLE WB midstance support. PT-OP-R Modalities Start: 03/11/21 13:40 Freq: Status: Active Protocol: Document 03/13/21 13:48 SP (Rec: 03/13/21 16:01 SP [id number]) Electric Stimulation Electric Stimulation quad set w/ [place] stim Body Location L medial quad Duration (Minutes) 8 Intensity 40 Cycle 10/10 Patient Position Supine Comments SAQ w/ [place] stim contraction LE over large black bolster PT-OP-T Assessment and Plan Start: 03/11/21 13:40 Freq: Status: Active Protocol: Document 03/13/21 13:48 SP (Rec: 03/13/21 16:01 SP [id number]) Physical Therapy Assessment Goals Nevaeh is able to improve her gait with improved posture for community ambulation Impairment impaired gait Senior Living Goal (LTG) Nevaeh is able to ambulate greater than 500 feet with improved posture and no complaints of R LBP, she feels safe to ambulate with her 4 wheeled walked in the community LTG Duration 8 weeks Improve knee flexion to 115 or better on the left Impairment Decreased knee flexion 110 degrees L Short Term Goal (STG) Nevaeh presents with improved knee flexion to 115 degrees or better on the left 03/13/21: Goal MET 134 deg L knee flexion AROM painfree. STG Duration 4 weeks (GOAL MET 03/13/21) Improve strength of the left quad, Nevaeh is able to perform full seated knee extension Impairment Decreased strength of the left quad,unable to perform full knee extension Short Term Goal (STG) Nevaeh is able to perform seated full knee extension with full ROM STG Duration 5 weeks Nevaeh is able to ascend and descend a flight of stairs with railing IND Impairment needs assist on stairs, step to step gait Short Term Goal (STG) Nevaeh is able to ascend/ descend 6 steps using B railing without assist STG Duration 4 weeks Senior Living Goal (LTG) Nevaeh is able to ascend/ descend 9 steps using left hand railing only without assist LTG Duration 8 weeks Progress Towards Goals Progress Towards Goals Progressing Toward Goals Progress Comments Pt improved AROM B knee flexion by 25 degrees LLE, 24 deg RLE, painfree. Assessment Summary Assessment Tx focused on warm up on Scifit bike, quad facilitation strengthening with [place]er stim and HEP review for increased L knee extension stability for gait confidence. ORTHODONTIC ASSISTANT elevated her 4WW by 1 knotch due to noted forward posture to meet handles. Improved more upright posture but does Min WB on handles during LLE midstance gait phase. Pt Improved AROM. Physical Therapy Plan Frequency and Duration Frequency of Treatment 2x/Week Duration of Treatment 8 Plan of Care Start Date 03/11/21 Plan of Care End Date 05/13/21 Therapeutic Interventions Therapeutic Interventions Gait Training,Home Exercise Program,Manual Therapy,Patient /Caregiver Education,Self-Care /Home Management,Soft Tissue Mobilization,Therapeutic Exercises Modalities Electric Stimulation Next Visit Focus/Plan Next Note Type Treatment Note Next Visit Plan Assess response [place]er Stim w / SAQ and HEP review, gait with improved 4WW height last tx. POC: Begin warm up on Sci fit, work on LE strengthening and left quad strengthening, knee ROM into flexion, stair training, gait training.
--- NOTE | 2021-03-18 14:40 | PT.OTN ---
Current Diagnoses Unspecified fracture of left patella, initial encounter for closed fracture (03/18/21) Presence of left artificial knee joint (03/18/21) Physical Therapy Treatment Note PT-OP-A Visit Information Start: 03/11/21 13:40 Freq: Status: Active Protocol: Document 03/18/21 13:50 SP (Rec: 03/18/21 15:10 SP [id number]) Out-Patient Physical Therapy Visit Information Visit Information Visit Type Treatment Note Visit Start Time 13:50 Visit Stop Time 14:40 Total Visit Minutes 50 Visit Number 3 Number of CIRCULAR SAW EDGE FUSER Visits 2 Evaluation Information Evaluation Date 03/11/21 PT-OP-B Current Condition Start: 03/11/21 13:40 Freq: Status: Active Protocol: Document 03/11/21 14:00 [facility] (Rec: 03/11/21 14:14 [facility] [id number]) Current Condition History of Current Condition Onset Date 12/29/20 History of Current Condition pt is being seen s/p L patella fracture due to a ground level fall on 12/29/20 She has been in a knee imobilizer and was just released from this a couple of weeks ago. Nevaeh's chief complaint is knee weakness and she reports difficulty fully straightening her leg. SHe doesn't feel stable and has been using a 4 wheeled walker. SHe has low pain 2/10 unless she bumbs it or twists wrong. With stairs going up is okay but going down she needs assist. She has stairs in her house and there is railing on one side only Railing is on the left. She has been able to resume driving. She has been limited on walking and she feels aprehensive. PT-OP-C Subjective Start: 03/11/21 13:40 Freq: Status: Active Protocol: Document 03/18/21 13:50 SP (Rec: 03/18/21 15:10 SP [id number]) OP-PT Subjective Patient Comments Patient Comments Pt arrived with forward posture over 4WW gait. 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 PT-OP-F Manual Assessment Start: 03/11/21 13:40 Freq: Status: Active Protocol: Document 03/11/21 14:00 [facility] (Rec: 03/12/21 09:28 [facility] [email or web address]) Manual Assessments Soft Tissue Assessment Soft Tissue Mobility Assessment tightness of the left quad PT-OP-G Mobility & Gait Start: 03/11/21 13:40 Freq: Status: Active Protocol: Document 03/11/21 14:00 [facility] (Rec: 03/12/21 09:28 [facility] [email or web address]) OP Mobility Evaluation Transfers Floor Transfers pt feels unable at this time OP Gait Assessment Assistive Devices Assistive Device 4 Wheeled Walker Gait Deviations General Gait Pattern Antalgic,Decreased Stride Length,Flexed Trunk Factors Limiting Gait Function Factors Limiting Gait Function Decreased Strength,Pain Comments Gait Comments pain in the right SI with gait , flexed forward posture, and decreased strength of the left LE Stair Climbing Evaluation Evaluation Level of Assist On Stairs Contact Guard Assistance Devices Stair Climbing Assistive Devices Left Railing,Right Railing Technique/Endurance Stair Climbing Technique Step to Step PT-OP-J Posture/Palpation/Skin Start: 03/11/21 13:40 Freq: Status: Active Protocol: Document 03/11/21 14:00 [facility] (Rec: 03/12/21 09:28 [facility] [email or web address]) Posture Evaluation Comments Posture Comments pt is using a 4 wheeled walker for gait, she tends to be in a forward flexed posture and needs verbal cues to straighten up Palpation Assessment Location right SI joint Palpation Findings Tenderness Palpation Details tightness in the soft tissue surrounding the R SI joint PT-OP-K Range of Motion Start: 03/11/21 13:40 Freq: Status: Active Protocol: Document 03/13/21 13:48 SP (Rec: 03/13/21 16:01 SP [id number]) Knee Goniometric Range of Motion Knee Right Knee ROM WFL No Patient Position Supine Flexion Active (degrees) 140 Left Knee ROM WFL No Patient Position Supine Flexion Active (degrees) 134 Comments history of B knee replacement PT-OP-M Strength Start: 03/11/21 13:40 Freq: Status: Active Protocol: Document 03/11/21 14:00 [facility] (Rec: 03/12/21 09:28 [facility] [email or web address]) Knee Strength Knee Manual Muscle Testing Left Flexion (S2) 3 Fair Extension (L3) 2 Poor Comments pt is unable to perform a seated TKE with full knee extension, she is able to perform a quad set PT-OP-Q Treatments Start: 03/11/21 13:40 Freq: Status: Active Protocol: Document 03/18/21 13:50 SP (Rec: 03/18/21 15:10 SP [id number]) Cardio Equipment Recumbent Stepper (Sci-Fit) Duration (Minutes) 8 Resistance 3 Seat Position 13>10> Other LEs only: 45 RPM, .94 miles Therapeutic Exercises Supine Exercises HS isometric Supine Exercise Name against therapist resistance for tiring then repeat quad set Side left Resistance assessment Comments still recruited HS for knee extension resisted hip abduction Supine Exercise Name discussed not performed today- is doing as HEP Resistance YTB (#2 loop has at home using ) Reps/Minutes 2x10 Comments hooklying supine TKE Supine Exercise Name performed with [place] stim today. Side left Equipment Used SAQ over large black bolster Reps/Minutes 8 min 5/5 on off Comments manual AAROM end range- lacking supine bridges Supine Exercise Name reviewed HEP (has hand out) Resistance AROM Equipment Used (discussed not performed this tx) Reps/Minutes 3 sec hold x15 reps Comments with pelvic tilt and core engagement- improved stability with reps quad sets Supine Exercise Name hold for now 03/18/21 Reps/Minutes 3s hold x5 Comments noted knee flex/HS recruitment so stopped for home. Sitting Exercises sit<> stands Sitting Exercise Name BUE support concentric, cued hip hinge slow eccentric sitting Resistance added for HEP Equipment Used 18 chair w/ 2 blue foam cushion Reps/Minutes 2x3 reps Comments improved eccentric sit- weak concentric requires BUE support right now seated TKE Sitting Exercise Name (femur not fully supported) Equipment Used 18 chair + 2 blue foam cushion Reps/Minutes lag so stopped Comments unable to lift far. Standing Exercises step up/ down Standing Exercise Name attempted concentric/ eccentric end of tx Equipment Used 03/18/21 Comments Pt unable to perform today, L quad weakness concentric/ eccentric- hold now TKE Standing Exercise Name added to HEP- best posititonal quad fac performance Side left Reps/Minutes 3s hold x10 Comments cued RLE positioned behind L- good performance quad activation Gait Training Gait Activity gait w/ 4WW Device Used 4WW Level of Assistance S Surface firm Distance/Duration 170 ft Treatment Focus taller posture, light WB pressure on handles, equal dian Comments cues for maintaining L knee extension and qlut faciliation pelvis tucked under trunk during midstance w/upright shoulders during gait for awareness at home and community walking, light pressure on handles during LLE WB midstance support. stair mgt Device Used R HR, SPC in L UE Level of Assistance SBA Distance/Duration 4 stairs x4 sets Treatment Focus L quad facilitation soft knee during midstance Comments Unable to receiprocal due to L quad weakness this tx. PT-OP-R Modalities Start: 03/11/21 13:40 Freq: Status: Active Protocol: Document 03/13/21 13:48 SP (Rec: 03/13/21 16:01 SP [id number]) Electric Stimulation Electric Stimulation quad set w/ [place]er stim Body Location L medial quad Duration (Minutes) 8 Intensity 40 Cycle 10/10 Patient Position Supine Comments SAQ w/ [place]er stim contraction LE over large black bolster PT-OP-T Assessment and Plan Start: 03/11/21 13:40 Freq: Status: Active Protocol: Document 03/18/21 13:50 SP (Rec: 03/18/21 15:10 SP [id number]) Physical Therapy Assessment Goals Nevaeh is able to improve her gait with improved posture for community ambulation Impairment impaired gait Detention Goal (LTG) Nevaeh is able to ambulate greater than 500 feet with improved posture and no complaints of R LBP, she feels safe to ambulate with her 4 wheeled walked in the community LTG Duration 8 weeks Improve knee flexion to 115 or better on the left Impairment Decreased knee flexion 110 degrees L Short Term Goal (STG) Nevaeh presents with improved knee flexion to 115 degrees or better on the left 03/13/21: Goal MET 134 deg L knee flexion AROM painfree. STG Duration 4 weeks (GOAL MET 03/13/21) Improve strength of the left quad, Nevaeh is able to perform full seated knee extension Impairment Decreased strength of the left quad,unable to perform full knee extension Short Term Goal (STG) Nevaeh is able to perform seated full knee extension with full ROM STG Duration 5 weeks Nevaeh is able to ascend and descend a flight of stairs with railing IND Impairment needs assist on stairs, step to step gait Short Term Goal (STG) Nevaeh is able to ascend/ descend 6 steps using B railing without assist 03/18/21: pt completes step to patterning gait R HR and SPC in LUE at home due to L quad weakness at this time- S. STG Duration 4 weeks Coroner Technician Goal (LTG) Nevaeh is able to ascend/ descend 9 steps using left hand railing only without assist LTG Duration 8 weeks Assessment Summary Assessment Tx focused on bike warm up, SAQ activation w/[place] stim facilitation reinforcement for quad re-ed, required AAROM end range performance. Pt demonstrated hamstring compenstations during quad set supine, improved quality TKE in standing against TB and able to don/ doff (good brake mgt) in sitting on 4WW for safety added HEP. Pt required cues for tall posture, quad/ glut facilitation to allow knee and hip extension and awareness of UE WB informix developer to inhibit forward WB, improved corrections with cues and distance. Physical Therapy Plan Frequency and Duration Frequency of Treatment 2x/Week Duration of Treatment 8 Plan of Care Start Date 03/11/21 Plan of Care End Date 05/13/21 Therapeutic Interventions Therapeutic Interventions Gait Training,Home Exercise Program,Manual Therapy,Patient /Caregiver Education,Self-Care /Home Management,Soft Tissue Mobilization,Therapeutic Exercises Modalities Electric Stimulation Next Visit Focus/Plan Next Note Type Treatment Note Next Visit Plan Next tx: Scifit, [place] stim with SAQ, TKE in standing, gait phase w/ improved posture using 4WW. Add: wt shift in front mirror WB L knee extension midstance strength. POC: Begin warm up on Sci fit, work on LE strengthening and left quad strengthening, knee ROM into flexion, stair training, gait training.
--- NOTE | 2021-03-20 14:39 | PT.OTN ---
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 Nevaeh's chief complaint is knee weakness and she reports difficulty fully straightening her leg. SHe doesn't feel stable and has been using a 4 wheeled walker. SHe has low pain 2/10 unless she bumbs it or twists wrong. With stairs going up is okay but going down she needs assist. She has stairs in her house and there is railing on one side only Railing is on the left. She has been able to resume driving. She has been limited on walking and she feels aprehensive. PT-OP-C Subjective Start: 03/11/21 13:40 Freq: Status: Active Protocol: Document 03/20/21 13:49 SP (Rec: 03/20/21 15:31 SP [id number]) OP-PT Subjective Patient Comments Patient Comments Pt stated feel little sore everywhere, got her 3rd Moderna vaccine. PT-OP-F Manual Assessment Start: 03/11/21 13:40 Freq: Status: Active Protocol: Document 03/11/21 14:00 [facility] (Rec: 03/12/21 09:28 [facility] [email or web address]) Manual Assessments Soft Tissue Assessment Soft Tissue Mobility Assessment tightness of the left quad PT-OP-G Mobility & Gait Start: 03/11/21 13:40 Freq: Status: Active Protocol: Document 03/11/21 14:00 [facility] (Rec: 03/12/21 09:28 [facility] [email or web address]) OP Mobility Evaluation Transfers Floor Transfers pt feels unable at this time OP Gait Assessment Assistive Devices Assistive Device 4 Wheeled Walker Gait Deviations General Gait Pattern Antalgic,Decreased Stride Length,Flexed Trunk Factors Limiting Gait Function Factors Limiting Gait Function Decreased Strength,Pain Comments Gait Comments pain in the right SI with gait , flexed forward posture, and decreased strength of the left LE Stair Climbing Evaluation Evaluation Level of Assist On Stairs Contact Guard Assistance Devices Stair Climbing Assistive Devices Left Railing,Right Railing Technique/Endurance Stair Climbing Technique Step to Step PT-OP-J Posture/Palpation/Skin Start: 03/11/21 13:40 Freq: Status: Active Protocol: Document 03/11/21 14:00 [facility] (Rec: 03/12/21 09:28 [facility] [email or web address]) Posture Evaluation Comments Posture Comments pt is using a 4 wheeled walker for gait, she tends to be in a forward flexed posture and needs verbal cues to straighten up Palpation Assessment Location right SI joint Palpation Findings Tenderness Palpation Details tightness in the soft tissue surrounding the R SI joint PT-OP-K Range of Motion Start: 03/11/21 13:40 Freq: Status: Active Protocol: Document 03/20/21 13:49 SP (Rec: 03/20/21 15:31 SP [id number]) Knee Goniometric Range of Motion Knee Left Knee ROM WFL No Patient Position Supine Flexion Active (degrees) 137 Extension Passive (degrees) 2 Comments history of B knee replacement PT-OP-M Strength Start: 03/11/21 13:40 Freq: Status: Active Protocol: Document 03/11/21 14:00 [facility] (Rec: 03/12/21 09:28 [facility] [email or web address]) Knee Strength Knee Manual Muscle Testing Left Flexion (S2) 3 Fair Extension (L3) 2 Poor Comments pt is unable to perform a seated TKE with full knee extension, she is able to perform a quad set PT-OP-Q Treatments Start: 03/11/21 13:40 Freq: Status: Active Protocol: Document 03/20/21 13:49 SP (Rec: 03/20/21 15:31 SP [id number]) Cardio Equipment Bicycle (Upright) Duration (Minutes) 8 Resistance 13 Seat Position 9 Therapeutic Exercises Supine Exercises resisted hip abduction Supine Exercise Name single LE at time Resistance YTB (#2 loop has at home using ) Reps/Minutes 2x10 Comments hooklying, cued slow eccentric return supine TKE Supine Exercise Name performed with Luxembour[place] stim today. Side left Equipment Used SAQ over large black bolster Reps/Minutes 8 min 5/5 on off Comments manual AAROM end 15% A at 3> 8 min supine bridges Supine Exercise Name reviewed HEP (has hand out) Resistance AROM Equipment Used purple small ball between knees Reps/Minutes 3 sec hold x15 reps Comments with pelvic tilt and core engagement- improved stability with reps Sitting Exercises HS curl Sitting Exercise Name reviewed HEP Side left Resistance Tb #2 Equipment Used 18 chair w/ pillow (not deep enough) Reps/Minutes x10 Comments cued slow eccentric return (at table next) seated TKE Sitting Exercise Name discussed but not performed this tx Standing Exercises TKE Standing Exercise Name best posititonal quad fac performance Side left Equipment Used discussed not performed (today ) Reps/Minutes 3s hold x10 Comments cued RLE positioned behind L- good performance quad activation Gait Training Gait Activity 6MWT Device Used 4WW Level of Assistance SBA Surface firm/ level carpet Distance/Duration 753 ft Treatment Focus foot clearance, stride heel toe // feet, soft L knee stability Comments cued tall posture closer to 4WW, noted L foot circumduction improved cues for L knee flexion feet // to allow heel toe alignment. PT-OP-R Modalities Start: 03/11/21 13:40 Freq: Status: Active Protocol: Document 03/13/21 13:48 SP (Rec: 03/13/21 16:01 SP [id number]) Electric Stimulation Electric Stimulation quad set w/ Luxembourger stim Body Location L medial quad Duration (Minutes) 8 Intensity 40 Cycle 10/10 Patient Position Supine Comments SAQ w/ Luxembourger stim contraction LE over large black bolster PT-OP-T Assessment and Plan Start: 03/11/21 13:40 Freq: Status: Active Protocol: Document 03/20/21 13:49 SP (Rec: 03/20/21 15:31 SP [id number]) Physical Therapy Assessment Goals Nevaeh is able to improve her gait with improved posture for community ambulation Impairment impaired gait Detention Goal (LTG) Nevaeh is able to ambulate greater than 500 feet with improved posture and no complaints of R LBP, she feels safe to ambulate with her 4 wheeled walked in the community 03/20/21: GOAL MET: pt able to walk 753 ft using 4WW cues for posture and decrease EV circumduction during LLE advancement. LTG Duration GOAL MET Improve knee flexion to 115 or better on the left Impairment Decreased knee flexion 110 degrees L Short Term Goal (STG) Nevaeh presents with improved knee flexion to 115 degrees or better on the left 03/13/21: Goal MET 134 deg L knee flexion AROM painfree. STG Duration 4 weeks (GOAL MET 03/13/21) Improve strength of the left quad, Nevaeh is able to perform full seated knee extension Impairment Decreased strength of the left quad,unable to perform full knee extension Short Term Goal (STG) Nevaeh is able to perform seated full knee extension with full ROM 03/20/21: progressing: lacking end range ROM. STG Duration 5 weeks Nevaeh is able to ascend and descend a flight of stairs with railing IND Impairment needs assist on stairs, step to step gait Short Term Goal (STG) Nevaeh is able to ascend/ descend 6 steps using B railing without assist 03/18/21: pt completes step to patterning gait R HR and SPC in LUE at home due to L quad weakness at this time- S. STG Duration 4 weeks Advertising Agent Goal (LTG) Nevaeh is able to ascend/ descend 9 steps using left hand railing only without assist LTG Duration 8 weeks Progress Towards Goals Progress Towards Goals Progressing Toward Goals Progress Comments MET gait goal ambulates 753 ft w/ 4WW (500 ft goal). Assessment Summary Assessment Pt progressed in able to perform SAQ quad facilitation 5 sec hold w/ Luxembour[place] stim up to 3 min before requried manual assist to complete end ROM. HEP review provided small ball between knees to assist stability bridge. Pt able to complete 6MWT 753 ft w/ 4WW this tx, cues for // feet to decreased L ankle circumduction, noted L knee unstable at times in midstance , cued soft knee quad/ HS facilitation, reviewed TKE and added HS curl w/ TB for improved stabilty for gait. Physical Therapy Plan Frequency and Duration Frequency of Treatment 2x/Week Duration of Treatment 8 Plan of Care Start Date 03/11/21 Plan of Care End Date 05/13/21 Therapeutic Interventions Therapeutic Interventions Gait Training,Home Exercise Program,Manual Therapy,Patient /Caregiver Education,Self-Care /Home Management,Soft Tissue Mobilization,Therapeutic Exercises Modalities Electric Stimulation Next Visit Focus/Plan Next Note Type Treatment Note Next Visit Plan Next tx: Scifit, Luxembour[place] stim with SAQ, review TKE in standing, seated resisted HS curl gait phase w/ improved posture using 4WW. Add: wt shift in front mirror WB L knee extension midstance strength. POC: Begin warm up on Sci fit, work on LE strengthening and left quad strengthening, knee ROM into flexion, stair training, gait training.
--- NOTE | 2021-03-25 15:20 | PT.OTN ---
Current Diagnoses Unspecified fracture of left patella, initial encounter for closed fracture (03/25/21) Presence of left artificial knee joint (03/25/21) Physical Therapy Treatment Note PT-OP-A Visit Information Start: 03/11/21 13:40 Freq: Status: Active Protocol: Document 03/25/21 14:41 SP (Rec: 03/25/21 16:14 SP [id number]) Out-Patient Physical Therapy Visit Information Visit Information Visit Type Treatment Note Visit Start Time 14:35 Visit Stop Time 15:20 Total Visit Minutes 45 Visit Number 5 Number of BODY MAKER MACHINE SETTER Visits 4 PT-OP-B Current Condition Start: 03/11/21 13:40 Freq: Status: Active Protocol: Document 03/11/21 14:00 [facility] (Rec: 03/11/21 14:14 [facility] [id number]) Current Condition History of Current Condition Onset Date 12/29/20 History of Current Condition pt is being seen s/p L patella fracture due to a ground level fall on 12/29/20 She has been in a knee imobilizer and was just released from this a couple of weeks ago. Nevaeh's chief complaint is knee weakness and she reports difficulty fully straightening her leg. SHe doesn't feel stable and has been using a 4 wheeled walker. SHe has low pain 2/10 unless she bumbs it or twists wrong. With stairs going up is okay but going down she needs assist. She has stairs in her house and there is railing on one side only Railing is on the left. She has been able to resume driving. She has been limited on walking and she feels aprehensive. PT-OP-C Subjective Start: 03/11/21 13:40 Freq: Status: Active Protocol: Document 03/25/21 14:41 SP (Rec: 03/25/21 16:14 SP [id number]) OP-PT Subjective Patient Comments Patient Comments Pt stated little tired had lots of errands today. Is getting a new mattress tonight . Is glad because didn't sleep well last night, had pain in low back that radiated down B legs to medical thigh then toes were tingling all night. Pt states tries her best to walk with tall posture but her low back hurts when more upright. PT-OP-F Manual Assessment Start: 03/11/21 13:40 Freq: Status: Active Protocol: Document 03/11/21 14:00 [facility] (Rec: 03/12/21 09:28 [facility] [email or web address]) Manual Assessments Soft Tissue Assessment Soft Tissue Mobility Assessment tightness of the left quad PT-OP-G Mobility & Gait Start: 03/11/21 13:40 Freq: Status: Active Protocol: Document 03/11/21 14:00 [facility] (Rec: 03/12/21 09:28 [facility] [email or web address]) OP Mobility Evaluation Transfers Floor Transfers pt feels unable at this time OP Gait Assessment Assistive Devices Assistive Device 4 Wheeled Walker Gait Deviations General Gait Pattern Antalgic,Decreased Stride Length,Flexed Trunk Factors Limiting Gait Function Factors Limiting Gait Function Decreased Strength,Pain Comments Gait Comments pain in the right SI with gait , flexed forward posture, and decreased strength of the left LE Stair Climbing Evaluation Evaluation Level of Assist On Stairs Contact Guard Assistance Devices Stair Climbing Assistive Devices Left Railing,Right Railing Technique/Endurance Stair Climbing Technique Step to Step PT-OP-J Posture/Palpation/Skin Start: 03/11/21 13:40 Freq: Status: Active Protocol: Document 03/11/21 14:00 [facility] (Rec: 03/12/21 09:28 [facility] [email or web address]) Posture Evaluation Comments Posture Comments pt is using a 4 wheeled walker for gait, she tends to be in a forward flexed posture and needs verbal cues to straighten up Palpation Assessment Location right SI joint Palpation Findings Tenderness Palpation Details tightness in the soft tissue surrounding the R SI joint PT-OP-K Range of Motion Start: 03/11/21 13:40 Freq: Status: Active Protocol: Document 03/20/21 13:49 SP (Rec: 03/20/21 15:31 SP [id number]) Knee Goniometric Range of Motion Knee Left Knee ROM WFL No Patient Position Supine Flexion Active (degrees) 137 Extension Passive (degrees) 2 Comments history of B knee replacement PT-OP-M Strength Start: 03/11/21 13:40 Freq: Status: Active Protocol: Document 03/11/21 14:00 [facility] (Rec: 03/12/21 09:28 [facility] [email or web address]) Knee Strength Knee Manual Muscle Testing Left Flexion (S2) 3 Fair Extension (L3) 2 Poor Comments pt is unable to perform a seated TKE with full knee extension, she is able to perform a quad set PT-OP-Q Treatments Start: 03/11/21 13:40 Freq: Status: Active Protocol: Document 03/25/21 14:41 SP (Rec: 03/25/21 16:14 SP [id number]) Therapeutic Exercises Supine Exercises HS stretch w/ AP Supine Exercise Name reviewed past HEP for decrease leg pain at night Side bilateral Reps/Minutes x10 Comments good feedback response Prone Exercises HS curl Prone Exercise Name assessed personal exercise does at home. Side left Resistance AROM Reps/Minutes x10 Comments cued slow eccentric control Sitting Exercises hs stretch Side left Reps/Minutes 30 x2 Comments good feedback response improved L knee extension sit<> stands Sitting Exercise Name BUE support concentric, cued hip hinge slow eccentric sitting Resistance HEP reviewed Equipment Used elevated mat table Reps/Minutes 2x5 reps Comments improved eccentric sit with cues for hip hinge seated TKE Sitting Exercise Name LAQ Side left Equipment Used on mat table Reps/Minutes x5 Comments improved extension post HS stretch (continues lag into extension) Standing Exercises step up/ down Standing Exercise Name attempted concentric/ eccentric end of tx Side left Resistance 03/25/21 Equipment Used 4 step w/ rail support Reps/Minutes x5 Comments Pt difficulty today eccentric control into flex /ext so stopped TKE Standing Exercise Name best posititonal quad fac performance Side left Equipment Used discussed not performed (today ) Reps/Minutes 3s hold x10 Comments cued RLE positioned behind L- good performance quad activation Gait Training Gait Activity gait SPC Description tall posture, 2pt gait w/ SPC Level of Assistance sBA Surface firm Distance/Duration 40 ft Treatment Focus heel toe, even wt distribution , quad facilitation Comments improved gait posture w/ noted decreased LB stresses stair mgt Device Used R HR, SPC in L UE Level of Assistance SBA Distance/Duration 4 stairs x4 sets Treatment Focus L quad facilitation soft knee during midstance Comments Unable to receiprocal due to L quad weakness this tx. PT-OP-R Modalities Start: 03/11/21 13:40 Freq: Status: Active Protocol: Document 03/25/21 14:41 SP (Rec: 03/25/21 16:14 SP [id number]) Electric Stimulation Electric Stimulation quad set w/ Vincentian stim Body Location L medial quad Duration (Minutes) 8 Intensity 40 Patient Position Hooklying Comments 5/5 AAROM end range during SAQ w/ Vincentian stim contraction LE over large black bolster PT-OP-T Assessment and Plan Start: 03/11/21 13:40 Freq: Status: Active Protocol: Document 03/25/21 14:41 SP (Rec: 03/25/21 16:14 SP [id number]) Physical Therapy Assessment Goals Nevaeh is able to improve her gait with improved posture for community ambulation Impairment impaired gait Care Home Goal (LTG) Nevaeh is able to ambulate greater than 500 feet with improved posture and no complaints of R LBP, she feels safe to ambulate with her 4 wheeled walked in the community 03/20/21: GOAL MET: pt able to walk 753 ft using 4WW cues for posture and decrease EV circumduction during LLE advancement. LTG Duration GOAL MET Improve knee flexion to 115 or better on the left Impairment Decreased knee flexion 110 degrees L Short Term Goal (STG) Nevaeh presents with improved knee flexion to 115 degrees or better on the left 03/13/21: Goal MET 134 deg L knee flexion AROM painfree. STG Duration 4 weeks (GOAL MET 03/13/21) Improve strength of the left quad, Nevaeh is able to perform full seated knee extension Impairment Decreased strength of the left quad,unable to perform full knee extension Short Term Goal (STG) Nevaeh is able to perform seated full knee extension with full ROM 03/20/21: progressing: lacking end range ROM. STG Duration 5 weeks Nevaeh is able to ascend and descend a flight of stairs with railing IND Impairment needs assist on stairs, step to step gait Short Term Goal (STG) Nevaeh is able to ascend/ descend 6 steps using B railing without assist 03/18/21: pt completes step to patterning gait R HR and SPC in LUE at home due to L quad weakness at this time- S. STG Duration 4 weeks Care Home Goal (LTG) Nevaeh is able to ascend/ descend 9 steps using left hand railing only without assist LTG Duration 8 weeks Assessment Summary Assessment Pt continues to have lag into end range L knee extension, requires AAROM last 10 degrees during Vincentian Stim. Improved extension during standing TKE and initiated prone eccentric HS curls with good feedback response, she also found prone a good alternate position if wants to sleep. Pt's posture improved during gait using SPC short distance, continue next tx. Physical Therapy Plan Frequency and Duration Frequency of Treatment 2x/Week Duration of Treatment 8 Plan of Care Start Date 03/11/21 Plan of Care End Date 05/13/21 Therapeutic Interventions Therapeutic Interventions Gait Training,Home Exercise Program,Manual Therapy,Patient /Caregiver Education,Self-Care /Home Management,Soft Tissue Mobilization,Therapeutic Exercises Modalities Electric Stimulation Next Visit Focus/Plan Next Note Type Treatment Note Next Visit Plan Next tx: Scifit, Vincentian stim with SAQ, review TKE in standing, gait phase with SPC. Add: wt shift in front mirror WB L knee extension midstance strength. POC: Begin warm up on Sci fit, work on LE strengthening and left quad strengthening, knee ROM into flexion, stair training, gait training.
--- NOTE | 2021-03-27 12:12 | PT.OTN ---
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 Nevaeh's chief complaint is knee weakness and she reports difficulty fully straightening her leg. SHe doesn't feel stable and has been using a 4 wheeled walker. SHe has low pain 2/10 unless she bumbs it or twists wrong. With stairs going up is okay but going down she needs assist. She has stairs in her house and there is railing on one side only Railing is on the left. She has been able to resume driving. She has been limited on walking and she feels aprehensive. PT-OP-C Subjective Start: 03/11/21 13:40 Freq: Status: Active Protocol: Document 03/27/21 11:18 [facility] (Rec: 03/27/21 12:12 [facility] [id number]) OP-PT Subjective Patient Comments Patient Comments Pt reports she occ furniture walks. PT-OP-F Manual Assessment Start: 03/11/21 13:40 Freq: Status: Active Protocol: Document 03/11/21 14:00 [facility] (Rec: 03/12/21 09:28 [facility] [id number]) Manual Assessments Soft Tissue Assessment Soft Tissue Mobility Assessment tightness of the left quad PT-OP-G Mobility & Gait Start: 03/11/21 13:40 Freq: Status: Active Protocol: Document 03/11/21 14:00 [facility] (Rec: 03/12/21 09:28 [facility] [id number]) OP Mobility Evaluation Transfers Floor Transfers pt feels unable at this time OP Gait Assessment Assistive Devices Assistive Device 4 Wheeled Walker Gait Deviations General Gait Pattern Antalgic,Decreased Stride Length,Flexed Trunk Factors Limiting Gait Function Factors Limiting Gait Function Decreased Strength,Pain Comments Gait Comments pain in the right SI with gait , flexed forward posture, and decreased strength of the left LE Stair Climbing Evaluation Evaluation Level of Assist On Stairs Contact Guard Assistance Devices Stair Climbing Assistive Devices Left Railing,Right Railing Technique/Endurance Stair Climbing Technique Step to Step PT-OP-J Posture/Palpation/Skin Start: 03/11/21 13:40 Freq: Status: Active Protocol: Document 03/11/21 14:00 [facility] (Rec: 03/12/21 09:28 [facility] [email or web address]) Posture Evaluation Comments Posture Comments pt is using a 4 wheeled walker for gait, she tends to be in a forward flexed posture and needs verbal cues to straighten up Palpation Assessment Location right SI joint Palpation Findings Tenderness Palpation Details tightness in the soft tissue surrounding the R SI joint PT-OP-K Range of Motion Start: 03/11/21 13:40 Freq: Status: Active Protocol: Document 03/20/21 13:49 [facility] (Rec: 03/20/21 15:31 [facility] [id number]) Knee Goniometric Range of Motion Knee Left Knee ROM WFL No Patient Position Supine Flexion Active (degrees) 137 Extension Passive (degrees) 2 Comments history of B knee replacement PT-OP-M Strength Start: 03/11/21 13:40 Freq: Status: Active Protocol: Document 03/11/21 14:00 [facility] (Rec: 03/12/21 09:28 [facility] [id number]) Knee Strength Knee Manual Muscle Testing Left Flexion (S2) 3 Fair Extension (L3) 2 Poor Comments pt is unable to perform a seated TKE with full knee extension, she is able to perform a quad set PT-OP-Q Treatments Start: 03/11/21 13:40 Freq: Status: Active Protocol: Document 03/27/21 11:18 [facility] (Rec: 03/27/21 12:12 [facility] [id number]) Cardio Equipment Recumbent Elliptical (Biodex) Duration (Minutes) 5 Resistance 7 Seat Position 12 Therapeutic Exercises Standing Exercises heel raises Side bilateral Reps/Minutes 20 TKE Standing Exercise Name best posititonal quad fac performance Side left Equipment Used L1 Reps/Minutes 3s hold x20 Comments cued RLE positioned behind L- good performance quad activation Gait Training Gait Activity wt shifts Comments 1. SLS in mirror w/hand on counter B trials focus on hips neutral 2. wt shifts B w/focus on pelvis coming fwd and full wt shift to pelvis over foot & push off of back foot in mirror gait SPC Description tall posture, 2pt gait w/ SPC Level of Assistance sBA Surface firm Distance/Duration 200ft Treatment Focus heel toe, even wt distribution , quad facilitation Comments improved posture w/cues for push off PT-OP-R Modalities Start: 03/11/21 13:40 Freq: Status: Active Protocol: Document 03/27/21 11:18 [facility] (Rec: 03/27/21 12:12 [facility] [id number]) Electric Stimulation Electric Stimulation quad set w/ [place]utanese stim Body Location L medial quad Duration (Minutes) 8 Intensity 40 Patient Position Hooklying Comments 5/5 AAROM end range during SAQ w/ [place]utanese stim contraction LE over large black bolster PT-OP-T Assessment and Plan Start: 03/11/21 13:40 Freq: Status: Active Protocol: Document 03/27/21 11:18 [facility] (Rec: 03/27/21 12:12 [facility] [id number]) Physical Therapy Assessment Goals Nevaeh is able to improve her gait with improved posture for community ambulation Impairment impaired gait Fdc Goal (LTG) Nevaeh is able to ambulate greater than 500 feet with improved posture and no complaints of R LBP, she feels safe to ambulate with her 4 wheeled walked in the community 03/20/21: GOAL MET: pt able to walk 753 ft using 4WW cues for posture and decrease EV circumduction during LLE advancement. LTG Duration GOAL MET Improve knee flexion to 115 or better on the left Impairment Decreased knee flexion 110 degrees L Short Term Goal (STG) Nevaeh presents with improved knee flexion to 115 degrees or better on the left 03/13/21: Goal MET 134 deg L knee flexion AROM painfree. STG Duration 4 weeks (GOAL MET 03/13/21) Improve strength of the left quad, Nevaeh is able to perform full seated knee extension Impairment Decreased strength of the left quad,unable to perform full knee extension Short Term Goal (STG) Nevaeh is able to perform seated full knee extension with full ROM 03/20/21: progressing: lacking end range ROM. STG Duration 5 weeks Nevaeh is able to ascend and descend a flight of stairs with railing IND Impairment needs assist on stairs, step to step gait Short Term Goal (STG) Nevaeh is able to ascend/ descend 6 steps using B railing without assist 03/18/21: pt completes step to patterning gait R HR and SPC in LUE at home due to L quad weakness at this time- S. STG Duration 4 weeks Fdc Goal (LTG) Nevaeh is able to ascend/ descend 9 steps using left hand railing only without assist LTG Duration 8 weeks Assessment Summary Assessment Pt still has ext lag w/quad set but does best in standing w/TKE but requires PT blocking pelvis to avoid just wt shift back to ext. She requries cues w/wt shifts for working on no knee flex w/push off of LLE. SHe has weakness in L>R abd which is noted w/hip drop w/wt shifts & SL activity Physical Therapy Plan Frequency and Duration Frequency of Treatment 2x/Week Duration of Treatment 8 Plan of Care Start Date 03/11/21 Plan of Care End Date 05/13/21 Next Visit Focus/Plan Next Note Type Treatment Note Next Visit Plan Next tx: Scifit, Bhutanese stim with SAQ, review TKE in standing, gait phase with SPC. Add: wt shift in front mirror WB L knee extension midstance strength. POC: Begin warm up on Sci fit, work on LE strengthening and left quad strengthening, knee ROM into flexion, stair training, gait training.
--- NOTE | 2021-04-01 13:58 | PT.OTN ---
Current Diagnoses Unspecified fracture of left patella, initial encounter for closed fracture (04/01/21) Presence of left artificial knee joint (04/01/21) Physical Therapy Treatment Note PT-OP-A Visit Information Start: 03/11/21 13:40 Freq: Status: Active Protocol: Document 04/01/21 13:15 [facility] (Rec: 04/01/21 13:58 [facility] [id number]) Out-Patient Physical Therapy Visit Information Visit Information Visit Type Treatment Note Visit Start Time 13:15 Visit Stop Time 14:00 Total Visit Minutes 45 Visit Number 7 PT-OP-B Current Condition Start: 03/11/21 13:40 Freq: Status: Active Protocol: Document 03/11/21 14:00 [facility] (Rec: 03/11/21 14:14 [facility] [id number]) Current Condition History of Current Condition Onset Date 12/29/20 History of Current Condition pt is being seen s/p L patella fracture due to a ground level fall on 12/29/20 She has been in a knee imobilizer and was just released from this a couple of weeks ago. Nevaeh's chief complaint is knee weakness and she reports difficulty fully straightening her leg. SHe doesn't feel stable and has been using a 4 wheeled walker. SHe has low pain 2/10 unless she bumbs it or twists wrong. With stairs going up is okay but going down she needs assist. She has stairs in her house and there is railing on one side only Railing is on the left. She has been able to resume driving. She has been limited on walking and she feels aprehensive. PT-OP-C Subjective Start: 03/11/21 13:40 Freq: Status: Active Protocol: Document 04/01/21 13:15 [facility] (Rec: 04/01/21 13:58 [facility] [id number]) OP-PT Subjective Patient Comments Patient Comments pt reports she still feels weak with full knee extension, and reports at times it feels like her leg gives out on her . She has been riding her bike daily. Pt reports the tape was fine last visit but she had lotion on her leg so it didn't stay long. PT-OP-F Manual Assessment Start: 03/11/21 13:40 Freq: Status: Active Protocol: Document 03/11/21 14:00 [facility] (Rec: 03/12/21 09:28 [facility] [id number]) Manual Assessments Soft Tissue Assessment Soft Tissue Mobility Assessment tightness of the left quad PT-OP-G Mobility & Gait Start: 03/11/21 13:40 Freq: Status: Active Protocol: Document 03/11/21 14:00 [facility] (Rec: 03/12/21 09:28 [facility] [id number]) OP Mobility Evaluation Transfers Floor Transfers pt feels unable at this time OP Gait Assessment Assistive Devices Assistive Device 4 Wheeled Walker Gait Deviations General Gait Pattern Antalgic,Decreased Stride Length,Flexed Trunk Factors Limiting Gait Function Factors Limiting Gait Function Decreased Strength,Pain Comments Gait Comments pain in the right SI with gait , flexed forward posture, and decreased strength of the left LE Stair Climbing Evaluation Evaluation Level of Assist On Stairs Contact Guard Assistance Devices Stair Climbing Assistive Devices Left Railing,Right Railing Technique/Endurance Stair Climbing Technique Step to Step PT-OP-J Posture/Palpation/Skin Start: 03/11/21 13:40 Freq: Status: Active Protocol: Document 03/11/21 14:00 [facility] (Rec: 03/12/21 09:28 [facility] [id number]) Posture Evaluation Comments Posture Comments pt is using a 4 wheeled walker for gait, she tends to be in a forward flexed posture and needs verbal cues to straighten up Palpation Assessment Location right SI joint Palpation Findings Tenderness Palpation Details tightness in the soft tissue surrounding the R SI joint PT-OP-K Range of Motion Start: 03/11/21 13:40 Freq: Status: Active Protocol: Document 03/20/21 13:49 [facility] (Rec: 03/20/21 15:31 [facility] [id number]) Knee Goniometric Range of Motion Knee Left Knee ROM WFL No Patient Position Supine Flexion Active (degrees) 137 Extension Passive (degrees) 2 Comments history of B knee replacement PT-OP-M Strength Start: 03/11/21 13:40 Freq: Status: Active Protocol: Document 03/11/21 14:00 [facility] (Rec: 03/12/21 09:28 [facility] [id number]) Knee Strength Knee Manual Muscle Testing Left Flexion (S2) 3 Fair Extension (L3) 2 Poor Comments pt is unable to perform a seated TKE with full knee extension, she is able to perform a quad set PT-OP-Q Treatments Start: 03/11/21 13:40 Freq: Status: Active Protocol: Document 04/01/21 13:15 [facility] (Rec: 04/01/21 13:58 [facility] [id number]) Gym Equipment Shuttle Recovery Unilateral Squats Resistance 50# Reps/Time 2 x 10 reps Bilateral Squats Resistance 75# Reps/Time 3 x 10 reps Therapeutic Exercises Supine Exercises supine bridges Reps/Minutes 2x10 reps Standing Exercises step ups Reps/Minutes x 10 on both sets of stairs Comments cued for full knee extension TKE Standing Exercise Name best posititonal quad fac performance Side left Equipment Used L1 Reps/Minutes 3s hold x20 Comments cued RLE positioned behind L- good performance quad activation PT-OP-R Modalities Start: 03/11/21 13:40 Freq: Status: Active Protocol: Document 04/01/21 13:15 [facility] (Rec: 04/01/21 13:58 [facility] [id number]) Electric Stimulation Electric Stimulation quad set w/ [place] stim Body Location left medial and middle quad Duration (Minutes) 8 Intensity 26 Comments pt notes she could feel more intensity at a lower level today with one pad placed over her quad and one pad placed on the VMO PT-OP-T Assessment and Plan Start: 03/11/21 13:40 Freq: Status: Active Protocol: Document 04/01/21 13:15 [facility] (Rec: 04/01/21 13:58 [facility] [id number]) Physical Therapy Assessment Goals Improve knee flexion to 115 or better on the left Impairment Decreased knee flexion 110 degrees L Short Term Goal (STG) Nevaeh presents with improved knee flexion to 115 degrees or better on the left 03/13/21: Goal MET 134 deg L knee flexion AROM painfree. STG Duration 4 weeks (GOAL MET 03/13/21) Assessment Summary Assessment pt seems to be doing better today with initiating her knee extension, she still has a quad lag but today was able to perform seated knee extension for me. I added in the shuttle leg press and step ups as well. Physical Therapy Plan Frequency and Duration Frequency of Treatment 2x/Week Duration of Treatment 8 Plan of Care Start Date 03/11/21 Plan of Care End Date 05/13/21 Next Visit Focus/Plan Next Note Type Treatment Note Next Visit Plan continue progressing strength of the left LE, working on full TKE, step ups, leg press for quad strength, continue with cypriot stim with SAQ
--- NOTE | 2021-04-03 17:32 | PT.OTN ---
Current Diagnoses Unspecified fracture of left patella, initial encounter for closed fracture (04/03/21) Presence of left artificial knee joint (04/03/21) Physical Therapy Treatment Note PT-OP-A Visit Information Start: 03/11/21 13:40 Freq: Status: Active Protocol: Document 04/03/21 13:51 [facility] (Rec: 04/03/21 14:11 [facility] [id number]) Out-Patient Physical Therapy Visit Information Visit Information Visit Type Treatment Note Visit Start Time 13:45 Visit Stop Time 14:30 Total Visit Minutes 45 Visit Number 8 PT-OP-B Current Condition Start: 03/11/21 13:40 Freq: Status: Active Protocol: Document 03/11/21 14:00 [facility] (Rec: 03/11/21 14:14 [facility] [id number]) Current Condition History of Current Condition Onset Date 12/29/20 History of Current Condition pt is being seen s/p L patella fracture due to a ground level fall on 12/29/20 She has been in a knee imobilizer and was just released from this a couple of weeks ago. Nevaeh's chief complaint is knee weakness and she reports difficulty fully straightening her leg. SHe doesn't feel stable and has been using a 4 wheeled walker. SHe has low pain 2/10 unless she bumbs it or twists wrong. With stairs going up is okay but going down she needs assist. She has stairs in her house and there is railing on one side only Railing is on the left. She has been able to resume driving. She has been limited on walking and she feels aprehensive. PT-OP-C Subjective Start: 03/11/21 13:40 Freq: Status: Active Protocol: Document 04/03/21 13:51 [facility] (Rec: 04/03/21 14:11 [facility] [id number]) OP-PT Subjective Patient Comments Patient Comments Nevaeh notes she could tell she used her legs last visit as she was tired but doing better today. 4 PT-OP-F Manual Assessment Start: 03/11/21 13:40 Freq: Status: Active Protocol: Document 03/11/21 14:00 [facility] (Rec: 03/12/21 09:28 [facility] [id number]) Manual Assessments Soft Tissue Assessment Soft Tissue Mobility Assessment tightness of the left quad PT-OP-G Mobility & Gait Start: 03/11/21 13:40 Freq: Status: Active Protocol: Document 03/11/21 14:00 [facility] (Rec: 03/12/21 09:28 [facility] [email or web address]) OP Mobility Evaluation Transfers Floor Transfers pt feels unable at this time OP Gait Assessment Assistive Devices Assistive Device 4 Wheeled Walker Gait Deviations General Gait Pattern Antalgic,Decreased Stride Length,Flexed Trunk Factors Limiting Gait Function Factors Limiting Gait Function Decreased Strength,Pain Comments Gait Comments pain in the right SI with gait , flexed forward posture, and decreased strength of the left LE Stair Climbing Evaluation Evaluation Level of Assist On Stairs Contact Guard Assistance Devices Stair Climbing Assistive Devices Left Railing,Right Railing Technique/Endurance Stair Climbing Technique Step to Step PT-OP-J Posture/Palpation/Skin Start: 03/11/21 13:40 Freq: Status: Active Protocol: Document 03/11/21 14:00 [facility] (Rec: 03/12/21 09:28 [facility] [id number]) Posture Evaluation Comments Posture Comments pt is using a 4 wheeled walker for gait, she tends to be in a forward flexed posture and needs verbal cues to straighten up Palpation Assessment Location right SI joint Palpation Findings Tenderness Palpation Details tightness in the soft tissue surrounding the R SI joint PT-OP-K Range of Motion Start: 03/11/21 13:40 Freq: Status: Active Protocol: Document 03/20/21 13:49 [facility] (Rec: 03/20/21 15:31 [facility] [id number]) Knee Goniometric Range of Motion Knee Left Knee ROM WFL No Patient Position Supine Flexion Active (degrees) 137 Extension Passive (degrees) 2 Comments history of B knee replacement PT-OP-M Strength Start: 03/11/21 13:40 Freq: Status: Active Protocol: Document 03/11/21 14:00 [facility] (Rec: 03/12/21 09:28 [facility] [id number]) Knee Strength Knee Manual Muscle Testing Left Flexion (S2) 3 Fair Extension (L3) 2 Poor Comments pt is unable to perform a seated TKE with full knee extension, she is able to perform a quad set PT-OP-Q Treatments Start: 03/11/21 13:40 Freq: Status: Active Protocol: Document 04/03/21 13:15 [facility] (Rec: 04/03/21 14:32 [facility] [id number]) Cardio Equipment Recumbent Elliptical (Biodex) Duration (Minutes) 7 Resistance 8 Seat Position 12 Gym Equipment Shuttle Recovery Unilateral Squats Resistance 50# Reps/Time 2 x 10 reps Bilateral Squats Resistance 75# Reps/Time 3 x 10 reps Therapeutic Exercises Supine Exercises ball squeeze with bridge Reps/Minutes x 10 reps supine bridges Reps/Minutes 2x10 reps Sitting Exercises seated TKE Reps/Minutes 2 x 10 reps PT-OP-R Modalities Start: 03/11/21 13:40 Freq: Status: Active Protocol: Document 04/03/21 13:45 [facility] (Rec: 04/03/21 17:32 [facility] [id number]) Electric Stimulation Electric Stimulation quad set w/ French stim Body Location left medial and middle quad Duration (Minutes) 10 Intensity 35 Comments pt notes she could feel more intensity at a lower level today with one pad placed over her quad and one pad placed on the VMO PT-OP-T Assessment and Plan Start: 03/11/21 13:40 Freq: Status: Active Protocol: Document 04/03/21 13:45 [facility] (Rec: 04/03/21 17:32 [facility] [id number]) Physical Therapy Assessment Assessment Summary Assessment Nevaeh was more fatigued today as she had walked to lunch. She is able to initiate her knee extension but is still limited with end range and has a quad lag. She has been able to tolerate step ups and shuttle press. Nevaeh performed step over step for stairs today with Gemma glaser Physical Therapy Plan Frequency and Duration Frequency of Treatment 2x/Week Duration of Treatment 8 Plan of Care Start Date 03/11/21 Plan of Care End Date 05/13/21 Therapeutic Interventions Therapeutic Interventions Gait Training,Home Exercise Program,Manual Therapy,Patient /Caregiver Education,Self-Care /Home Management,Soft Tissue Mobilization,Therapeutic Exercises Modalities Electric Stimulation Next Visit Focus/Plan Next Note Type Treatment Note Next Visit Plan continue progressing strength of the left LE, working on full TKE, step ups, leg press for quad strength, continue with lib[place] stim with SAQ
--- NOTE | 2021-04-08 15:31 | PT.OTN ---
Current Diagnoses Unspecified fracture of left patella, initial encounter for closed fracture (04/08/21) Presence of left artificial knee joint (04/08/21) Physical Therapy Treatment Note PT-OP-A Visit Information Start: 03/11/21 13:40 Freq: Status: Active Protocol: Document 04/08/21 13:46 MB (Rec: 04/08/21 14:29 MB [id number]) Out-Patient Physical Therapy Visit Information Visit Information Visit Type Progress Note Visit Note About 28 visits in 2020, so KX should be added Visit Start Time 13:46 Visit Stop Time 14:26 Total Visit Minutes 40 Visit Number 9 Number of GEAR TESTER Visits 0 PT-OP-B Current Condition Start: 03/11/21 13:40 Freq: Status: Active Protocol: Document 03/11/21 14:00 [facility] (Rec: 03/11/21 14:14 [facility] [id number]) Current Condition History of Current Condition Onset Date 12/29/20 History of Current Condition pt is being seen s/p L patella fracture due to a ground level fall on 12/29/20 She has been in a knee imobilizer and was just released from this a couple of weeks ago. Nevaeh's chief complaint is knee weakness and she reports difficulty fully straightening her leg. SHe doesn't feel stable and has been using a 4 wheeled walker. SHe has low pain 2/10 unless she bumbs it or twists wrong. With stairs going up is okay but going down she needs assist. She has stairs in her house and there is railing on one side only Railing is on the left. She has been able to resume driving. She has been limited on walking and she feels aprehensive. PT-OP-C Subjective Start: 03/11/21 13:40 Freq: Status: Active Protocol: Document 04/08/21 13:46 MB (Rec: 04/08/21 14:29 MB [id number]) OP-PT Subjective Patient Comments Patient Comments Pt states that she thought she had some slippers under the bed and she went down on her knees and she was able to get up with the help of the bed and BSC. PT-OP-F Manual Assessment Start: 03/11/21 13:40 Freq: Status: Active Protocol: Document 03/11/21 14:00 [facility] (Rec: 03/12/21 09:28 [facility] [email or web address]) Manual Assessments Soft Tissue Assessment Soft Tissue Mobility Assessment tightness of the left quad PT-OP-G Mobility & Gait Start: 03/11/21 13:40 Freq: Status: Active Protocol: Document 03/11/21 14:00 [facility] (Rec: 03/12/21 09:28 [facility] [email or web address]) OP Mobility Evaluation Transfers Floor Transfers pt feels unable at this time OP Gait Assessment Assistive Devices Assistive Device 4 Wheeled Walker Gait Deviations General Gait Pattern Antalgic,Decreased Stride Length,Flexed Trunk Factors Limiting Gait Function Factors Limiting Gait Function Decreased Strength,Pain Comments Gait Comments pain in the right SI with gait , flexed forward posture, and decreased strength of the left LE Stair Climbing Evaluation Evaluation Level of Assist On Stairs Contact Guard Assistance Devices Stair Climbing Assistive Devices Left Railing,Right Railing Technique/Endurance Stair Climbing Technique Step to Step PT-OP-J Posture/Palpation/Skin Start: 03/11/21 13:40 Freq: Status: Active Protocol: Document 03/11/21 14:00 [facility] (Rec: 03/12/21 09:28 [facility] [email or web address]) Posture Evaluation Comments Posture Comments pt is using a 4 wheeled walker for gait, she tends to be in a forward flexed posture and needs verbal cues to straighten up Palpation Assessment Location right SI joint Palpation Findings Tenderness Palpation Details tightness in the soft tissue surrounding the R SI joint PT-OP-K Range of Motion Start: 03/11/21 13:40 Freq: Status: Active Protocol: Document 03/20/21 13:49 SP (Rec: 03/20/21 15:31 SP [id number]) Knee Goniometric Range of Motion Knee Left Knee ROM WFL No Patient Position Supine Flexion Active (degrees) 137 Extension Passive (degrees) 2 Comments history of B knee replacement PT-OP-M Strength Start: 03/11/21 13:40 Freq: Status: Active Protocol: Document 03/11/21 14:00 [facility] (Rec: 03/12/21 09:28 [facility] [email or web address]) Knee Strength Knee Manual Muscle Testing Left Flexion (S2) 3 Fair Extension (L3) 2 Poor Comments pt is unable to perform a seated TKE with full knee extension, she is able to perform a quad set PT-OP-Q Treatments Start: 03/11/21 13:40 Freq: Status: Active Protocol: Document 04/08/21 13:46 MB (Rec: 04/08/21 14:29 MB [id number]) Cardio Equipment Bicycle (Upright) Duration (Minutes) 10 Resistance 10 Seat Position 8 Gym Equipment Shuttle Recovery Unilateral Squats Resistance 50# Reps/Time Cues not to lock out, 20 reps Bilateral Squats Resistance 75# Reps/Time Cues to keep heels up and not lock out, at least 20 reps Therapeutic Exercises Sitting Exercises sit<> stands Comments 6 reps in 30 sec with minimal UE support today PT-OP-R Modalities Start: 03/11/21 13:40 Freq: Status: Active Protocol: Document 04/03/21 13:45 [facility] (Rec: 04/03/21 17:32 [facility] [email or web address]) Electric Stimulation Electric Stimulation quad set w/ Guyanese stim Body Location left medial and middle quad Duration (Minutes) 10 Intensity 35 Comments pt notes she could feel more intensity at a lower level today with one pad placed over her quad and one pad placed on the VMO PT-OP-T Assessment and Plan Start: 03/11/21 13:40 Freq: Status: Active Protocol: Document 04/08/21 13:46 MB (Rec: 04/08/21 14:29 MB [id number]) Physical Therapy Assessment Rehab Potential Rehabilitation Potential Good Evaluation Complexity Number of Personal Factors/Comorbidities 1-2 Number of Body Systems Impaired 3 Clinical Presentation at Evaluation Stable Impairments Impairments Activity Tolerance,Balance, Functional Activities, Functional Mobility,Gait,Pain, Posture,ROM,Soft Tissue Mobility,Strength,Tone, Transfers Other Impairments Personal factors include decreased safety awareness/ memory challenges. Body systems affected include cognitive, neuromuscular and musculoskeletal. Other Concerns Fall Risk Yes Goals 8 Jewel Oliving Machine Operator Goal (LTG) Pt will perform 8 reps sit to stand with minimal to no UE support in 30 sec to improve functional transfers by 06/08/21 . 04/08/21: Pt performs 6 reps with minimal B UE support in mesh chair with arms today LTG Duration 8 weeks 7 Usp Goal (LTG) Pt will perform WNLs on a standardized balance test to decrease fall risk by 06/08/21. LTG Duration 8 weeks 6 Jewel Oliving Machine Operator Goal (LTG) Pt will ascend and descend 12 steps with left rail ascend and cane in opposite hand and mod I to improve home mobility by 06/08/21. 04/08/21: Pt ascend and descend 4 standard steps x4 with left rail and occ reaching for right and CGA at gait belt with occ step-to gait and then cues to keep both hands on the left rail ascend and right rail descend since this is her set-up at home. LTG Duration 8 weeks 5 Jewel Oliving Machine Operator Goal (LTG) Pt will gait train at least 1200 feet with LRAD in 6 minutes to improve community ambulation by 06/08/21. 04/08/21: Pt gait trains 978 feet in 6 minutes with rollator. She presents with left hip with decreased flexion, decreased left knee flexion and extension with some guarding that pt reports is related to instability. LTG Duration 8 weeks Nevaeh is able to improve her gait with improved posture for community ambulation Impairment impaired gait Jewel Oliving Machine Operator Goal (LTG) Nevaeh is able to ambulate greater than 500 feet with improved posture and no complaints of R LBP, she feels safe to ambulate with her 4 wheeled walked in the community 03/20/21: GOAL MET: pt able to walk 753 ft using 4WW cues for posture and decrease EV circumduction during LLE advancement. LTG Duration GOAL MET Improve knee flexion to 115 or better on the left Impairment Decreased knee flexion 110 degrees L Short Term Goal (STG) Nevaeh presents with improved knee flexion to 115 degrees or better on the left 03/13/21: Goal MET 134 deg L knee flexion AROM painfree. STG Duration 4 weeks (GOAL MET 03/13/21) Improve strength of the left quad, Nevaeh is able to perform full seated knee extension Impairment Decreased strength of the left quad,unable to perform full knee extension Short Term Goal (STG) Nevaeh is able to perform seated full knee extension with full ROM 03/20/21: progressing: lacking end range ROM. STG Duration 5 weeks Nevaeh is able to ascend and descend a flight of stairs with railing IND Impairment needs assist on stairs, step to step gait Short Term Goal (STG) Nevaeh is able to ascend/ descend 6 steps using B railing without assist 03/18/21: pt completes step to patterning gait R HR and SPC in LUE at home due to L quad weakness at this time- S. STG Duration 4 weeks Usp Goal (LTG) Nevaeh is able to ascend/ descend 9 steps using left hand railing only without assist LTG Duration 8 weeks Assessment Summary Assessment Progress note today. Pt did a great job with all PT tasks today and she is progressing towards gait, stair and functional mobility goals. She will benefit from ongoing PT to improve functional range, strength, gait and transfers. After treatment today, pt did report soreness with single leg presses and pt has left knee iced and left quads heated after treatment. Safety awareness is a barrier to PT. Physical Therapy Plan Frequency and Duration Frequency of Treatment 2x/Week Duration of Treatment 8 weeks Plan of Care Start Date 04/08/21 Plan of Care End Date 06/09/21 Therapeutic Interventions Therapeutic Interventions Aquatic Therapy,Balance Training,Canalithic Repositioning,Gait Training, Home Exercise Program,Joint Mobilizations,Manual Therapy, Neuromuscular Re-education, Patient/Caregiver Education, Self-Care/Home Management,Soft Tissue Mobilization,Taping, Therapeutic Activities, Therapeutic Exercises Modalities Cold Pack/Ice Massage,Electric Stimulation,Hot Packs Next Visit Focus/Plan Next Note Type Treatment Note Next Visit Plan Check out left patella, vastus lateralis, medialis and rectus, hip flexor mobility and STM, progress balance activities and gait activities in // bars, try gait with cane
--- NOTE | 2021-04-10 14:29 | PT.OTN ---
Current Diagnoses Unspecified fracture of left patella, initial encounter for closed fracture (04/10/21) Presence of left artificial knee joint (04/10/21) Physical Therapy Treatment Note PT-OP-A Visit Information Start: 03/11/21 13:40 Freq: Status: Active Protocol: Document 04/10/21 13:39 SP (Rec: 04/10/21 14:35 SP [id number]) Out-Patient Physical Therapy Visit Information Visit Information Visit Type Treatment Note Visit Note KX modifier. ESTELA Strauss attended and provided education and help instruct Pt under direct supervision and guidance of LEMUEL Callaway throughout tx. Visit Start Time 13:41 Visit Stop Time 14:29 Total Visit Minutes 48 Visit Number 10 Number of HELP DESK ADMINISTRATOR Visits 1 Evaluation Information Evaluation Date 03/11/21 PT-OP-B Current Condition Start: 03/11/21 13:40 Freq: Status: Active Protocol: Document 03/11/21 14:00 [facility] (Rec: 03/11/21 14:14 [facility] [id number]) Current Condition History of Current Condition Onset Date 12/29/20 History of Current Condition pt is being seen s/p L patella fracture due to a ground level fall on 12/29/20 She has been in a knee imobilizer and was just released from this a couple of weeks ago. Nevaeh's chief complaint is knee weakness and she reports difficulty fully straightening her leg. SHe doesn't feel stable and has been using a 4 wheeled walker. SHe has low pain 2/10 unless she bumbs it or twists wrong. With stairs going up is okay but going down she needs assist. She has stairs in her house and there is railing on one side only Railing is on the left. She has been able to resume driving. She has been limited on walking and she feels aprehensive. PT-OP-C Subjective Start: 03/11/21 13:40 Freq: Status: Active Protocol: Document 04/10/21 13:39 SP (Rec: 04/10/21 14:35 SP [id number]) OP-PT Subjective Patient Comments Patient Comments Pt stated saw Dr Flynn and was told her ligaments aren't as connected and maybe why having hard extending L knee. Was discussed can do surgery but pt stated wanting to still try conservative means with PT. Will see if after the new year follow up. May need to transfer to new physician due to Kennedyjabarinat is retiring in Apr. PT-OP-F Manual Assessment Start: 03/11/21 13:40 Freq: Status: Active Protocol: Document 03/11/21 14:00 [facility] (Rec: 03/12/21 09:28 [facility] [email or web address]) Manual Assessments Soft Tissue Assessment Soft Tissue Mobility Assessment tightness of the left quad PT-OP-G Mobility & Gait Start: 03/11/21 13:40 Freq: Status: Active Protocol: Document 03/11/21 14:00 [facility] (Rec: 03/12/21 09:28 [facility] [email or web address]) OP Mobility Evaluation Transfers Floor Transfers pt feels unable at this time OP Gait Assessment Assistive Devices Assistive Device 4 Wheeled Walker Gait Deviations General Gait Pattern Antalgic,Decreased Stride Length,Flexed Trunk Factors Limiting Gait Function Factors Limiting Gait Function Decreased Strength,Pain Comments Gait Comments pain in the right SI with gait , flexed forward posture, and decreased strength of the left LE Stair Climbing Evaluation Evaluation Level of Assist On Stairs Contact Guard Assistance Devices Stair Climbing Assistive Devices Left Railing,Right Railing Technique/Endurance Stair Climbing Technique Step to Step PT-OP-J Posture/Palpation/Skin Start: 03/11/21 13:40 Freq: Status: Active Protocol: Document 03/11/21 14:00 [facility] (Rec: 03/12/21 09:28 [facility] [email or web address]) Posture Evaluation Comments Posture Comments pt is using a 4 wheeled walker for gait, she tends to be in a forward flexed posture and needs verbal cues to straighten up Palpation Assessment Location right SI joint Palpation Findings Tenderness Palpation Details tightness in the soft tissue surrounding the R SI joint PT-OP-K Range of Motion Start: 03/11/21 13:40 Freq: Status: Active Protocol: Document 03/20/21 13:49 SP (Rec: 03/20/21 15:31 SP [id number]) Knee Goniometric Range of Motion Knee Left Knee ROM WFL No Patient Position Supine Flexion Active (degrees) 137 Extension Passive (degrees) 2 Comments history of B knee replacement PT-OP-M Strength Start: 03/11/21 13:40 Freq: Status: Active Protocol: Document 03/11/21 14:00 [facility] (Rec: 03/12/21 09:28 [facility] [email or web address]) Knee Strength Knee Manual Muscle Testing Left Flexion (S2) 3 Fair Extension (L3) 2 Poor Comments pt is unable to perform a seated TKE with full knee extension, she is able to perform a quad set PT-OP-Q Treatments Start: 03/11/21 13:40 Freq: Status: Active Protocol: Document 04/10/21 13:39 SP (Rec: 04/10/21 14:35 SP [id number]) Cardio Equipment Bicycle (Upright) Duration (Minutes) 10 Resistance 8 Seat Position 10 Other 40 RPMs, full revolutions Therapeutic Exercises Sitting Exercises sit<> stands Equipment Used 1 UE support on chair (18 chair) Reps/Minutes x10 Comments cued hip hinge, REACH BACK with 1 UE slow descent support Standing Exercises hip flexor stretch Standing Exercise Name lunge anterior hip stretch Side left Reps/Minutes 10 sec x3 Gait Training Gait Activity wt shifts Description f/b Device Used //bars Level of Assistance CGA, SBA Surface firm Treatment Focus quad and glut facilitation, hip flexor elongation Comments 1. wt shifts B w/focus on pelvis coming fwd and full wt shift to pelvis over foot & push off of back foot in mirror with quad facilitation extended knee toe off gait SPC Description gait QC advancing to SPC Level of Assistance CGA Surface firm Distance/Duration 944 ft Treatment Focus quad facilitation during midstance, safety proper sequencing w/ LLE Comments L knee buckled x1, scissor step x 2 when approaching a turn end of [place]. Min-mod cues for slower speed, and patterning to maintain 2 point gait. stair mgt Device Used R HR, SPC in L UE Level of Assistance SBA Distance/Duration 13 stairs (Map bld flight) Treatment Focus L quad facilitation soft knee during midstance Comments Improved sequencing step to gait asc/ descend stable. Unable to receiprocal due to L quad weakness. PT-OP-R Modalities Start: 03/11/21 13:40 Freq: Status: Active Protocol: Document 04/03/21 13:45 [facility] (Rec: 04/03/21 17:32 [facility] [email or web address]) Electric Stimulation Electric Stimulation quad set w/ Yemeni stim Body Location left medial and middle quad Duration (Minutes) 10 Intensity 35 Comments pt notes she could feel more intensity at a lower level today with one pad placed over her quad and one pad placed on the VMO PT-OP-T Assessment and Plan Start: 03/11/21 13:40 Freq: Status: Active Protocol: Document 04/10/21 13:39 SP (Rec: 04/10/21 14:35 SP [id number]) Physical Therapy Assessment Goals 8 Game Warden Goal (LTG) Pt will perform 8 reps sit to stand with minimal to no UE support in 30 sec to improve functional transfers by 06/08/21 . 04/08/21: Pt performs 6 reps with minimal B UE support in mesh chair with arms today LTG Duration 8 weeks 7 Fdc Goal (LTG) Pt will perform WNLs on a standardized balance test to decrease fall risk by 06/08/21. LTG Duration 8 weeks 6 Fdc Goal (LTG) Pt will ascend and descend 12 steps with left rail ascend and cane in opposite hand and mod I to improve home mobility by 06/08/21. 04/08/21: Pt ascend and descend 4 standard steps x4 with left rail and occ reaching for right and CGA at gait belt with occ step-to gait and then cues to keep both hands on the left rail ascend and right rail descend since this is her set-up at home. LTG Duration 8 weeks 5 Fdc Goal (LTG) Pt will gait train at least 1200 feet with LRAD in 6 minutes to improve community ambulation by 06/08/21. 04/08/21: Pt gait trains 978 feet in 6 minutes with rollator. She presents with left hip with decreased flexion, decreased left knee flexion and extension with some guarding that pt reports is related to instability. LTG Duration 8 weeks Assessment Summary Assessment Pt treatment focused on gait and sequencing with SPC/ QC. Pt. had LLE buckle x1, and scissor step L over R x2. Self corrected with cane on R. Pt. requires min cueing for upright posture, slower pacing and maintaining 2 point step pattern with LLE. Physical Therapy Plan Frequency and Duration Frequency of Treatment 2x/Week Duration of Treatment 8 weeks Plan of Care Start Date 04/08/21 Plan of Care End Date 06/09/21 Therapeutic Interventions Therapeutic Interventions Aquatic Therapy,Balance Training,Canalithic Repositioning,Gait Training, Home Exercise Program,Joint Mobilizations,Manual Therapy, Neuromuscular Re-education, Patient/Caregiver Education, Self-Care/Home Management,Soft Tissue Mobilization,Taping, Therapeutic Activities, Therapeutic Exercises Modalities Cold Pack/Ice Massage,Electric Stimulation,Hot Packs Next Visit Focus/Plan Next Note Type Treatment Note Next Visit Plan Check out left patella, vastus lateralis, medialis and rectus, hip flexor mobility and STM, progress balance activities and gait activities in // bars, continue gait with cane, stairs.
--- NOTE | 2021-04-15 14:30 | PT.OTN ---
Current Diagnoses Unspecified fracture of left patella, initial encounter for closed fracture (04/15/21) Presence of left artificial knee joint (04/15/21) Physical Therapy Treatment Note PT-OP-A Visit Information Start: 03/11/21 13:40 Freq: Status: Active Protocol: Document 04/15/21 13:50 SP (Rec: 04/15/21 14:37 SP [id number]) Out-Patient Physical Therapy Visit Information Visit Information Visit Type Treatment Note Visit Note Kx Modifier Visit Start Time 13:50 Visit Stop Time 14:30 Total Visit Minutes 40 Visit Number 11 Number of CHAMFERING MACHINE OPERATOR Visits 2 Evaluation Information Evaluation Date 03/11/21 PT-OP-B Current Condition Start: 03/11/21 13:40 Freq: Status: Active Protocol: Document 03/11/21 14:00 [facility] (Rec: 03/11/21 14:14 [facility] [id number]) Current Condition History of Current Condition Onset Date 12/29/20 History of Current Condition pt is being seen s/p L patella fracture due to a ground level fall on 12/29/20 She has been in a knee imobilizer and was just released from this a couple of weeks ago. Nevaeh's chief complaint is knee weakness and she reports difficulty fully straightening her leg. SHe doesn't feel stable and has been using a 4 wheeled walker. SHe has low pain 2/10 unless she bumbs it or twists wrong. With stairs going up is okay but going down she needs assist. She has stairs in her house and there is railing on one side only Railing is on the left. She has been able to resume driving. She has been limited on walking and she feels aprehensive. PT-OP-C Subjective Start: 03/11/21 13:40 Freq: Status: Active Protocol: Document 04/15/21 13:50 SP (Rec: 04/15/21 14:37 SP [id number]) OP-PT Subjective Patient Comments Patient Comments Pt stated PT-OP-F Manual Assessment Start: 03/11/21 13:40 Freq: Status: Active Protocol: Document 03/11/21 14:00 [facility] (Rec: 03/12/21 09:28 [facility] [email or web address]) Manual Assessments Soft Tissue Assessment Soft Tissue Mobility Assessment tightness of the left quad PT-OP-G Mobility & Gait Start: 03/11/21 13:40 Freq: Status: Active Protocol: Document 03/11/21 14:00 [facility] (Rec: 03/12/21 09:28 [facility] [email or web address]) OP Mobility Evaluation Transfers Floor Transfers pt feels unable at this time OP Gait Assessment Assistive Devices Assistive Device 4 Wheeled Walker Gait Deviations General Gait Pattern Antalgic,Decreased Stride Length,Flexed Trunk Factors Limiting Gait Function Factors Limiting Gait Function Decreased Strength,Pain Comments Gait Comments pain in the right SI with gait , flexed forward posture, and decreased strength of the left LE Stair Climbing Evaluation Evaluation Level of Assist On Stairs Contact Guard Assistance Devices Stair Climbing Assistive Devices Left Railing,Right Railing Technique/Endurance Stair Climbing Technique Step to Step PT-OP-J Posture/Palpation/Skin Start: 03/11/21 13:40 Freq: Status: Active Protocol: Document 03/11/21 14:00 AM[facility] (Rec: 03/12/21 09:28 [facility] [email or web address]) Posture Evaluation Comments Posture Comments pt is using a 4 wheeled walker for gait, she tends to be in a forward flexed posture and needs verbal cues to straighten up Palpation Assessment Location right SI joint Palpation Findings Tenderness Palpation Details tightness in the soft tissue surrounding the R SI joint PT-OP-K Range of Motion Start: 03/11/21 13:40 Freq: Status: Active Protocol: Document 03/20/21 13:49 SP (Rec: 03/20/21 15:31 SP [id number]) Knee Goniometric Range of Motion Knee Left Knee ROM WFL No Patient Position Supine Flexion Active (degrees) 137 Extension Passive (degrees) 2 Comments history of B knee replacement PT-OP-M Strength Start: 03/11/21 13:40 Freq: Status: Active Protocol: Document 03/11/21 14:00 [facility] (Rec: 03/12/21 09:28 [facility] [email or web address]) Knee Strength Knee Manual Muscle Testing Left Flexion (S2) 3 Fair Extension (L3) 2 Poor Comments pt is unable to perform a seated TKE with full knee extension, she is able to perform a quad set PT-OP-Q Treatments Start: 03/11/21 13:40 Freq: Status: Active Protocol: Document 04/15/21 13:50 SP (Rec: 04/15/21 14:37 SP [id number]) Cardio Equipment Bicycle (Upright) Duration (Minutes) 10 Resistance 8 Seat Position 10 Other 40 RPMs, full revolutions Therapeutic Exercises Supine Exercises supine TKE Supine Exercise Name quick flicks- able to get full extension Side left Equipment Used foot supported on 1/2 roller and flat on table Reps/Minutes 2x reps Comments improved L knee extension with quick muscle fac. Sitting Exercises sit<> stands Sitting Exercise Name RLE forward more, LLE back under better = WB Resistance AROM Equipment Used 24 elevated table no UE Reps/Minutes 2x6 reps Comments cued hip hinge, cued wt shift/ push into LLE glut/quad to standing extension seated TKE Sitting Exercise Name supine lower leg off table post manual Equipment Used assessed in supine Reps/Minutes x 10 reps Comments improved ROM post manual Gait Training Gait Activity gait SPC Description gait R walk stick Level of Assistance CGA Surface firm Distance/Duration 40 ft x4 laps Treatment Focus quad facilitation during midstance, safety proper sequencing w/ LLE Comments Min cues for slower speed, and patterning to maintain 2 point gait, improved self corrections and . stair mgt Description receiprocal stepping for strengthening Device Used B HR Level of Assistance CGA Distance/Duration 4 stairs x4laps Treatment Focus L quad facilitation soft knee during midstance, controlled L k nee flexion Comments CUed for BUE downward support onto B HRs to allow WB into L LE concentric/ eccentric with contact support to anterior L knee for safety. Decreased LLE stance time but able to perform with Moderate BUE support. Manual Therapy Treatment Soft Tissue Mobilization STMs Body Location L quad Mobilization Type Myofascial Release,Strumming, Trigger Point Release Intensity/Depth Moderate Body Position Supine Comments L lower leg off table into dangling and into L knee flexion. Improved LAQ sustaned hold post. Joint Mobilizations patellar glides Direction med/lat, sup/inf Grade II Body Position Supine Reps/Duration 1 min PT-OP-R Modalities Start: 03/11/21 13:40 Freq: Status: Active Protocol: Document 04/03/21 13:45 AM[facility] (Rec: 04/03/21 17:32 [facility] [email or web address]) Electric Stimulation Electric Stimulation quad set w/ [place] stim Body Location left medial and middle quad Duration (Minutes) 10 Intensity 35 Comments pt notes she could feel more intensity at a lower level today with one pad placed over her quad and one pad placed on the VMO PT-OP-T Assessment and Plan Start: 03/11/21 13:40 Freq: Status: Active Protocol: Document 04/15/21 13:50 SP (Rec: 04/15/21 14:37 SP [id number]) Physical Therapy Assessment Goals 8 Penitentiary Goal (LTG) Pt will perform 8 reps sit to stand with minimal to no UE support in 30 sec to improve functional transfers by 06/08/21 . 04/08/21: Pt performs 6 reps with minimal B UE support in mesh chair with arms today : pt ableto complete sit<> stand from 24 raised table without UE support with even wB BLE: R Le positioned more front and cues for wt shift forward. LTG Duration 8 weeks 7 Network Specialist Goal (LTG) Pt will perform WNLs on a standardized balance test to decrease fall risk by 06/08/21. LTG Duration 8 weeks 6 Network Specialist Goal (LTG) Pt will ascend and descend 12 steps with left rail ascend and cane in opposite hand and mod I to improve home mobility by 06/08/21. 04/08/21: Pt ascend and descend 4 standard steps x4 with left rail and occ reaching for right and CGA at gait belt with occ step-to gait and then cues to keep both hands on the left rail ascend and right rail descend since this is her set-up at home. LTG Duration 8 weeks 5 Penitentiary Goal (LTG) Pt will gait train at least 1200 feet with LRAD in 6 minutes to improve community ambulation by 06/08/21. 04/08/21: Pt gait trains 978 feet in 6 minutes with rollator. She presents with left hip with decreased flexion, decreased left knee flexion and extension with some guarding that pt reports is related to instability. LTG Duration 8 weeks Assessment Summary Assessment Tx focused on manual L quad to decrease tightness in L quad reported and even wB sit<> stands without UE support 24 raised table R foot more forward positioning and wt shift into LLE. Pt improved upright posture with R walking stick, extra time spent for proper positioning front not beyond L foot with vertical alignment and lower pacing short distances, with more stability in midstance time this tx. Physical Therapy Plan Frequency and Duration Frequency of Treatment 2x/Week Duration of Treatment 8 weeks Plan of Care Start Date 04/08/21 Plan of Care End Date 06/09/21 Therapeutic Interventions Therapeutic Interventions Aquatic Therapy,Balance Training,Canalithic Repositioning,Gait Training, Home Exercise Program,Joint Mobilizations,Manual Therapy, Neuromuscular Re-education, Patient/Caregiver Education, Self-Care/Home Management,Soft Tissue Mobilization,Taping, Therapeutic Activities, Therapeutic Exercises Modalities Cold Pack/Ice Massage,Electric Stimulation,Hot Packs Next Visit Focus/Plan Next Note Type Treatment Note Next Visit Plan Continue gait with cane vs walk stick, stairs, balance.
--- NOTE | 2021-04-17 14:31 | PT.OTN ---
Current Diagnoses Unspecified fracture of left patella, initial encounter for closed fracture (04/17/21) Presence of left artificial knee joint (04/17/21) Physical Therapy Treatment Note PT-OP-A Visit Information Start: 03/11/21 13:40 Freq: Status: Active Protocol: Document 04/17/21 13:48 ER (Rec: 04/17/21 15:51 ER [email or web address]) Out-Patient Physical Therapy Visit Information Visit Information Visit Type Treatment Note Visit Note ESTELA Strauss lead treatment and provided education under the direct supervision and guidance of LEMUEL Callaway, who served as second person as needed. Kx Modifier Visit Start Time 13:48 Visit Stop Time 14:31 Total Visit Minutes 43 Visit Number 12 Number of ROUND UP RING HAND Visits 3 PT-OP-B Current Condition Start: 03/11/21 13:40 Freq: Status: Active Protocol: Document 03/11/21 14:00 AM[facility] (Rec: 03/11/21 14:14 [facility] [id number]) Current Condition History of Current Condition Onset Date 12/29/20 History of Current Condition pt is being seen s/p L patella fracture due to a ground level fall on 12/29/20 She has been in a knee imobilizer and was just released from this a couple of weeks ago. Nevaeh's chief complaint is knee weakness and she reports difficulty fully straightening her leg. SHe doesn't feel stable and has been using a 4 wheeled walker. SHe has low pain 2/10 unless she bumbs it or twists wrong. With stairs going up is okay but going down she needs assist. She has stairs in her house and there is railing on one side only Railing is on the left. She has been able to resume driving. She has been limited on walking and she feels aprehensive. PT-OP-C Subjective Start: 03/11/21 13:40 Freq: Status: Active Protocol: Document 04/17/21 13:48 ER (Rec: 04/17/21 15:51 ER [email or web address]) OP-PT Subjective Patient Comments Patient Comments Pt. said that she had been more active (baking, ambulating from kitchen to pantry, walking around house, worked this morning). Indicated that she had used no AD while baking, but said she furniture and wall cruises. Said her knee had no pain and felt like it had loosened up. PT-OP-F Manual Assessment Start: 03/11/21 13:40 Freq: Status: Active Protocol: Document 03/11/21 14:00 [facility] (Rec: 03/12/21 09:28 [facility] [email or web address]) Manual Assessments Soft Tissue Assessment Soft Tissue Mobility Assessment tightness of the left quad PT-OP-G Mobility & Gait Start: 03/11/21 13:40 Freq: Status: Active Protocol: Document 03/11/21 14:00 [facility] (Rec: 03/12/21 09:28 [facility] [email or web address]) OP Mobility Evaluation Transfers Floor Transfers pt feels unable at this time OP Gait Assessment Assistive Devices Assistive Device 4 Wheeled Walker Gait Deviations General Gait Pattern Antalgic,Decreased Stride Length,Flexed Trunk Factors Limiting Gait Function Factors Limiting Gait Function Decreased Strength,Pain Comments Gait Comments pain in the right SI with gait , flexed forward posture, and decreased strength of the left LE Stair Climbing Evaluation Evaluation Level of Assist On Stairs Contact Guard Assistance Devices Stair Climbing Assistive Devices Left Railing,Right Railing Technique/Endurance Stair Climbing Technique Step to Step PT-OP-J Posture/Palpation/Skin Start: 03/11/21 13:40 Freq: Status: Active Protocol: Document 03/11/21 14:00 [facility] (Rec: 03/12/21 09:28 [facility] [email or web address]) Posture Evaluation Comments Posture Comments pt is using a 4 wheeled walker for gait, she tends to be in a forward flexed posture and needs verbal cues to straighten up Palpation Assessment Location right SI joint Palpation Findings Tenderness Palpation Details tightness in the soft tissue surrounding the R SI joint PT-OP-K Range of Motion Start: 03/11/21 13:40 Freq: Status: Active Protocol: Document 03/20/21 13:49 SP (Rec: 03/20/21 15:31 SP [id number]) Knee Goniometric Range of Motion Knee Left Knee ROM WFL No Patient Position Supine Flexion Active (degrees) 137 Extension Passive (degrees) 2 Comments history of B knee replacement PT-OP-M Strength Start: 03/11/21 13:40 Freq: Status: Active Protocol: Document 03/11/21 14:00 [facility] (Rec: 03/12/21 09:28 [facility] [email or web address]) Knee Strength Knee Manual Muscle Testing Left Flexion (S2) 3 Fair Extension (L3) 2 Poor Comments pt is unable to perform a seated TKE with full knee extension, she is able to perform a quad set PT-OP-Q Treatments Start: 03/11/21 13:40 Freq: Status: Active Protocol: Document 04/17/21 13:48 ER (Rec: 04/17/21 15:51 ER [email or web address]) Cardio Equipment Bicycle (Upright) Duration (Minutes) 10 Resistance 8 Seat Position 10 Other 40 RPMs, full revolutions Therapeutic Exercises Sitting Exercises sit<> stands Sitting Exercise Name RLE forward more, LLE back under better = WB Resistance AROM Equipment Used 24 UE ergometer seat with blue airex pad, no UE Reps/Minutes 15x Comments cued hip hinge, cued wt shift/ push into LLE glut/quad to standing extension Gait Training Gait Activity gait SPC Description Gait walking stick > SPC Level of Assistance CGA Surface firm Distance/Duration 170' with each Treatment Focus quad facilitation during midstance, safety proper sequencing w/ LLE Comments Min cues for slower speed and patterning to maintain 2 point gait. Cues for upright posture and equal WB. Slower speed resulted in improved patterning, but decreased quad facilitation and stability. Pt lack of patterning leads to increase WB over RLE. Neuro Re-Education Treatment Balance Activities [place] Details in corner Surface firm Equipment chair in front for safety Reps/Duration 30 sec EC WBOS, 12 sec EC NBOS , 30 sec head-turn EO NBOS Comments Capital extension resulted in posterior shift with self recovery. Hurdles Details in // bars BUE>1UE> SPC in // bar for safety> outside //bar w/ SPC Surface firm Equipment Cane in RUE Reps/Duration 6 laps x 6 hurdles, 2 laps x 6 hurdles Comments Progressed from LUE support plus cane with step to gait, to LUE plus cane with step through gait, to no UE support plus cane with step through, to no UE support plus cane with step through. Cues for step pattern and cane timing 2pt> 3pt gait for safety receiprocal step stability. Pt demonstrated significantly improved quad and hip ext facilitation, and eccentric quad control. Good feedback. PT-OP-R Modalities Start: 03/11/21 13:40 Freq: Status: Active Protocol: Document 04/03/21 13:45 [facility] (Rec: 04/03/21 17:32 [facility] [email or web address]) Electric Stimulation Electric Stimulation quad set w/ [place] Citizen stim Body Location left medial and middle quad Duration (Minutes) 10 Intensity 35 Comments pt notes she could feel more intensity at a lower level today with one pad placed over her quad and one pad placed on the VMO PT-OP-T Assessment and Plan Start: 03/11/21 13:40 Freq: Status: Active Protocol: Document 04/17/21 13:48 ER (Rec: 04/17/21 15:51 ER [email or web address]) Physical Therapy Assessment Goals 8 Detention Goal (LTG) Pt will perform 8 reps sit to stand with minimal to no UE support in 30 sec to improve functional transfers by 06/08/21 . 04/08/21: Pt performs 6 reps with minimal B UE support in mesh chair with arms today : pt ableto complete sit<> stand from 24 raised table without UE support with even wB BLE: R Le positioned more front and cues for wt shift forward. LTG Duration 8 weeks 7 Stationary Engineer Apprentice Goal (LTG) Pt will perform WNLs on a standardized balance test to decrease fall risk by 06/08/21. LTG Duration 8 weeks 6 Stationary Engineer Apprentice Goal (LTG) Pt will ascend and descend 12 steps with left rail ascend and cane in opposite hand and mod I to improve home mobility by 06/08/21. 04/08/21: Pt ascend and descend 4 standard steps x4 with left rail and occ reaching for right and CGA at gait belt with occ step-to gait and then cues to keep both hands on the left rail ascend and right rail descend since this is her set-up at home. LTG Duration 8 weeks 5 Detention Goal (LTG) Pt will gait train at least 1200 feet with LRAD in 6 minutes to improve community ambulation by 06/08/21. 04/08/21: Pt gait trains 978 feet in 6 minutes with rollator. She presents with left hip with decreased flexion, decreased left knee flexion and extension with some guarding that pt reports is related to instability. LTG Duration 8 weeks Assessment Summary Assessment Tx. focused on quad fascilitation, balance, and strength. Pt ambulated 170' each with walking stick and cane. Required cues for AD patterning, and slow speed to improve WB on L. Improved hip hinging and forward lean with sit<>stand without UE support 24 on UE ergometer seat with airex pad. Cues for R foot forward positioned with weight shift onto LLE for equal wt distribution. Progressed hurdles from B UE support with cane in // and step to gait > SPC in the open with step through gait, demonstrating improved quad facilitation and eccentric control. Balance in [place] challenged with NBOS and EC (20 sec), and NBOS EO and cervical extension (5 sec) . Pt will benefit from continued PT to improve gait, strength, balance, and functional mobility. Physical Therapy Plan Frequency and Duration Frequency of Treatment 2x/Week Duration of Treatment 8 weeks Plan of Care Start Date 04/08/21 Plan of Care End Date 06/09/21 Therapeutic Interventions Therapeutic Interventions Aquatic Therapy,Balance Training,Canalithic Repositioning,Gait Training, Home Exercise Program,Joint Mobilizations,Manual Therapy, Neuromuscular Re-education, Patient/Caregiver Education, Self-Care/Home Management,Soft Tissue Mobilization,Taping, Therapeutic Activities, Therapeutic Exercises Modalities Cold Pack/Ice Massage,Electric Stimulation,Hot Packs Next Visit Focus/Plan Next Note Type Treatment Note Next Visit Plan Continue gait with cane, stair , balance. Repeat [place] balance, and hurdles.
--- NOTE | 2021-04-22 14:30 | PT.OTN ---
Current Diagnoses Unspecified fracture of left patella, initial encounter for closed fracture (04/22/21) Presence of left artificial knee joint (04/22/21) Physical Therapy Treatment Note PT-OP-A Visit Information Start: 03/11/21 13:40 Freq: Status: Active Protocol: Document 04/22/21 13:47 SP (Rec: 04/22/21 16:07 SP [id number]) Out-Patient Physical Therapy Visit Information Visit Information Visit Type Treatment Note Visit Note Kx Modifier Visit Start Time 13:47 Visit Stop Time 14:30 Total Visit Minutes 43 Visit Number 13 Number of WAREHOUSE ANALYST Visits 4 Evaluation Information Evaluation Date 03/11/21 PT-OP-B Current Condition Start: 03/11/21 13:40 Freq: Status: Active Protocol: Document 03/11/21 14:00 [facility] (Rec: 03/11/21 14:14 [facility] [id number]) Current Condition History of Current Condition Onset Date 12/29/20 History of Current Condition pt is being seen s/p L patella fracture due to a ground level fall on 12/29/20 She has been in a knee imobilizer and was just released from this a couple of weeks ago. Nevaeh's chief complaint is knee weakness and she reports difficulty fully straightening her leg. SHe doesn't feel stable and has been using a 4 wheeled walker. SHe has low pain 2/10 unless she bumbs it or twists wrong. With stairs going up is okay but going down she needs assist. She has stairs in her house and there is railing on one side only Railing is on the left. She has been able to resume driving. She has been limited on walking and she feels aprehensive. PT-OP-C Subjective Start: 03/11/21 13:40 Freq: Status: Active Protocol: Document 04/22/21 13:47 SP (Rec: 04/22/21 16:07 SP [id number]) OP-PT Subjective Patient Comments Patient Comments Pt stated was stiff and sore this am with extra up/ down yesterday. She stated took some Tyenol to help. She is compliant with stretching before get out of bed, but still needs walker initially due to stiffness until gets going then able to walk w/ without cane in house. Wants to go over what to do initally to lessen stiffness so can get up and stop using FWW. PT-OP-F Manual Assessment Start: 03/11/21 13:40 Freq: Status: Active Protocol: Document 03/11/21 14:00 [facility] (Rec: 03/12/21 09:28 [facility] [id number]) Manual Assessments Soft Tissue Assessment Soft Tissue Mobility Assessment tightness of the left quad PT-OP-G Mobility & Gait Start: 03/11/21 13:40 Freq: Status: Active Protocol: Document 03/11/21 14:00 [facility] (Rec: 03/12/21 09:28 [facility] [id number]) OP Mobility Evaluation Transfers Floor Transfers pt feels unable at this time OP Gait Assessment Assistive Devices Assistive Device 4 Wheeled Walker Gait Deviations General Gait Pattern Antalgic,Decreased Stride Length,Flexed Trunk Factors Limiting Gait Function Factors Limiting Gait Function Decreased Strength,Pain Comments Gait Comments pain in the right SI with gait , flexed forward posture, and decreased strength of the left LE Stair Climbing Evaluation Evaluation Level of Assist On Stairs Contact Guard Assistance Devices Stair Climbing Assistive Devices Left Railing,Right Railing Technique/Endurance Stair Climbing Technique Step to Step PT-OP-J Posture/Palpation/Skin Start: 03/11/21 13:40 Freq: Status: Active Protocol: Document 03/11/21 14:00 [facility] (Rec: 03/12/21 09:28 [facility] [id number]) Posture Evaluation Comments Posture Comments pt is using a 4 wheeled walker for gait, she tends to be in a forward flexed posture and needs verbal cues to straighten up Palpation Assessment Location right SI joint Palpation Findings Tenderness Palpation Details tightness in the soft tissue surrounding the R SI joint PT-OP-K Range of Motion Start: 03/11/21 13:40 Freq: Status: Active Protocol: Document 03/20/21 13:49 SP (Rec: 03/20/21 15:31 SP [id number]) Knee Goniometric Range of Motion Knee Left Knee ROM WFL No Patient Position Supine Flexion Active (degrees) 137 Extension Passive (degrees) 2 Comments history of B knee replacement PT-OP-M Strength Start: 03/11/21 13:40 Freq: Status: Active Protocol: Document 03/11/21 14:00 [facility] (Rec: 03/12/21 09:28 [facility] [id number]) Knee Strength Knee Manual Muscle Testing Left Flexion (S2) 3 Fair Extension (L3) 2 Poor Comments pt is unable to perform a seated TKE with full knee extension, she is able to perform a quad set PT-OP-Q Treatments Start: 03/11/21 13:40 Freq: Status: Active Protocol: Document 04/22/21 13:47 SP (Rec: 04/22/21 16:07 SP [id number]) Cardio Equipment Recumbent Stepper (Sci-Fit) Duration (Minutes) 7 Resistance 3 Seat Position 14 Other UE/ LE 50 RPM, 0.87 Therapeutic Exercises Sitting Exercises self STMs Sitting Exercise Name L ITB/ vastus lateralis to decrease little twinge discomfort Side left Equipment Used rolling stick Reps/Minutes 1 min Comments improved feedback less tightening. sit<> stands Sitting Exercise Name RLE forward more, LLE back under better = WB Resistance AROM cued full standing extension Equipment Used 24 table> 22 table no UE Reps/Minutes 9.5 reps 24 , 9.25 reps in 30sec Comments cued hip hinge, cued wt shift/ push into LLE glut/quad to standing extension Other Exercises sleep positioning warm up am ex Other Exercise Name open book, LTR, segmental bridge, seated LAQ, sit<> stands Side bilateral Resistance AROM Equipment Used gave hand outs for am warm up Reps/Minutes x5 each Comments cued slow movement- with breath end range Gait Training Gait Activity gait no AD Description lrg mat table <> 4 step stairs Device Used 50 ft x2 laps, carrying SPC for safety assess safety in kitchen Level of Assistance SBA- CGA Surface firm Treatment Focus stride length, quad facilitation during midstance with = stance time,postu Comments Cued tall posture, equal stride and stance time, use mirror next tx for self feedback stair mgt Description receiprocal stepping for strengthening Device Used B HR Level of Assistance CGA Distance/Duration 4 stairs x4 sets Treatment Focus L quad facilitation soft knee during midstance, controlled L k nee flexion Comments CUed for BUE downward support onto B HRs to allow WB into L LE concentric/ eccentric 04/22: progressing: pt able to ascend/descend 12 stairs BUE receiprocal stepping with Moderrate UE WB opn BUE HR, will progress 1 HR, SPC soon. Self-Care/Home Management Treatment Education Patient Education Body Mechanics,Pain Management ,Posture Other Education Discussed sleep with pillows between B knees, front arms for back/ hip alignment comfort. Good feedback and will try at home. Initiated self warm up HEP to decrease stiffness in LS and L knee pre OOB activity. PT-OP-R Modalities Start: 03/11/21 13:40 Freq: Status: Active Protocol: Document 04/03/21 13:45 [facility] (Rec: 04/03/21 17:32 [facility] [id number]) Electric Stimulation Electric Stimulation quad set w/ Haitian stim Body Location left medial and middle quad Duration (Minutes) 10 Intensity 35 Comments pt notes she could feel more intensity at a lower level today with one pad placed over her quad and one pad placed on the VMO PT-OP-T Assessment and Plan Start: 03/11/21 13:40 Freq: Status: Active Protocol: Document 04/22/21 13:47 SP (Rec: 04/22/21 16:07 SP [id number]) Physical Therapy Assessment Goals 8 Penitentiary Goal (LTG) Pt will perform 8 reps sit to stand with minimal to no UE support in 30 sec to improve functional transfers by 06/08/21 . 04/08/21: Pt performs 6 reps with minimal B UE support in mesh chair with arms today : pt ableto complete sit<> stand from 24 raised table without UE support with even wB BLE: R Le positioned more front and cues for wt shift forward. 04/22/21: no UE support: 24 table height: 9.5 reps in 30 sec. 22 table height: 9.25 reps LTG Duration 8 weeks 7 Records Management Engineer Goal (LTG) Pt will perform WNLs on a standardized balance test to decrease fall risk by 06/08/21. LTG Duration 8 weeks 6 Penitentiary Goal (LTG) Pt will ascend and descend 12 steps with left rail ascend and cane in opposite hand and mod I to improve home mobility by 06/08/21. 04/08/21: Pt ascend and descend 4 standard steps x4 with left rail and occ reaching for right and CGA at gait belt with occ step-to gait and then cues to keep both hands on the left rail ascend and right rail descend since this is her set-up at home. 04/22/21: progressing: pt able to ascend/descend 12 stairs BUE receiprocal stepping with Moderrate UE WB opn BUE HR, will progress 1 HR, SPC soon. LTG Duration 8 weeks 5 Penitentiary Goal (LTG) Pt will gait train at least 1200 feet with LRAD in 6 minutes to improve community ambulation by 06/08/21. 04/08/21: Pt gait trains 978 feet in 6 minutes with rollator. She presents with left hip with decreased flexion, decreased left knee flexion and extension with some guarding that pt reports is related to instability. LTG Duration 8 weeks Assessment Summary Assessment Tx focused initiation am warm up due to reported stiffness in LLE when gets up in am need to lessen need for fWW for support. See added: supine, sit HEP and hand outs provided for recall. Pt improved ableto reciprocal ascend/ descend with BUE support cued posture although decreased stance time LLE. Pt able to complete gait short distances without AD but L LE little unsteady but did not buckle. WAREHOUSE ANALYST recommended use of SPC in home for support as needed for safety, verbalized understanding. Physical Therapy Plan Frequency and Duration Frequency of Treatment 2x/Week Duration of Treatment 8 weeks Plan of Care Start Date 04/08/21 Plan of Care End Date 06/09/21 Therapeutic Interventions Therapeutic Interventions Aquatic Therapy,Balance Training,Canalithic Repositioning,Gait Training, Home Exercise Program,Joint Mobilizations,Manual Therapy, Neuromuscular Re-education, Patient/Caregiver Education, Self-Care/Home Management,Soft Tissue Mobilization,Taping, Therapeutic Activities, Therapeutic Exercises Modalities Cold Pack/Ice Massage,Electric Stimulation,Hot Packs Next Visit Focus/Plan Next Note Type Treatment Note Next Visit Plan Continue gait in PT without cane for strengthening, stair receiprocal stepping, balance. Repeat Rhomberg balance, and hurdles next tx.
--- NOTE | 2021-04-29 17:33 | PT.OTN ---
Current Diagnoses Unspecified fracture of left patella, initial encounter for closed fracture (04/29/21) Presence of left artificial knee joint (04/29/21) Physical Therapy Treatment Note PT-OP-A Visit Information Start: 03/11/21 13:40 Freq: Status: Active Protocol: Document 04/29/21 13:50 [facility] (Rec: 04/29/21 14:26 [facility] [id number]) Out-Patient Physical Therapy Visit Information Visit Information Visit Type Treatment Note Visit Start Time 13:50 Visit Stop Time 14:35 Total Visit Minutes 45 Visit Number 14 Number of GILL NET STRINGER Visits 0 PT-OP-B Current Condition Start: 03/11/21 13:40 Freq: Status: Active Protocol: Document 03/11/21 14:00 [facility] (Rec: 03/11/21 14:14 [facility] [id number]) Current Condition History of Current Condition Onset Date 12/29/20 History of Current Condition pt is being seen s/p L patella fracture due to a ground level fall on 12/29/20 She has been in a knee imobilizer and was just released from this a couple of weeks ago. Nevaeh's chief complaint is knee weakness and she reports difficulty fully straightening her leg. SHe doesn't feel stable and has been using a 4 wheeled walker. SHe has low pain 2/10 unless she bumbs it or twists wrong. With stairs going up is okay but going down she needs assist. She has stairs in her house and there is railing on one side only Railing is on the left. She has been able to resume driving. She has been limited on walking and she feels aprehensive. 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 She feels her knee is the same. She informed me about her MD visit and the need for future surgery. She is not sure how she feels about that and would still like time to think about it. Patient Reported Progress Same PT-OP-F Manual Assessment Start: 03/11/21 13:40 Freq: Status: Active Protocol: Document 03/11/21 14:00 [facility] (Rec: 03/12/21 09:28 [facility] [email or web address]) Manual Assessments Soft Tissue Assessment Soft Tissue Mobility Assessment tightness of the left quad PT-OP-G Mobility & Gait Start: 03/11/21 13:40 Freq: Status: Active Protocol: Document 03/11/21 14:00 [facility] (Rec: 03/12/21 09:28 [facility] [email or web address]) OP Mobility Evaluation Transfers Floor Transfers pt feels unable at this time OP Gait Assessment Assistive Devices Assistive Device 4 Wheeled Walker Gait Deviations General Gait Pattern Antalgic,Decreased Stride Length,Flexed Trunk Factors Limiting Gait Function Factors Limiting Gait Function Decreased Strength,Pain Comments Gait Comments pain in the right SI with gait , flexed forward posture, and decreased strength of the left LE Stair Climbing Evaluation Evaluation Level of Assist On Stairs Contact Guard Assistance Devices Stair Climbing Assistive Devices Left Railing,Right Railing Technique/Endurance Stair Climbing Technique Step to Step PT-OP-J Posture/Palpation/Skin Start: 03/11/21 13:40 Freq: Status: Active Protocol: Document 03/11/21 14:00 [facility] (Rec: 03/12/21 09:28 [facility] [email or web address]) Posture Evaluation Comments Posture Comments pt is using a 4 wheeled walker for gait, she tends to be in a forward flexed posture and needs verbal cues to straighten up Palpation Assessment Location right SI joint Palpation Findings Tenderness Palpation Details tightness in the soft tissue surrounding the R SI joint PT-OP-K Range of Motion Start: 03/11/21 13:40 Freq: Status: Active Protocol: Document 03/20/21 13:49 SP (Rec: 03/20/21 15:31 SP [id number]) Knee Goniometric Range of Motion Knee Left Knee ROM WFL No Patient Position Supine Flexion Active (degrees) 137 Extension Passive (degrees) 2 Comments history of B knee replacement PT-OP-M Strength Start: 03/11/21 13:40 Freq: Status: Active Protocol: Document 03/11/21 14:00 [facility] (Rec: 03/12/21 09:28 [facility] [email or web address]) Knee Strength Knee Manual Muscle Testing Left Flexion (S2) 3 Fair Extension (L3) 2 Poor Comments pt is unable to perform a seated TKE with full knee extension, she is able to perform a quad set PT-OP-Q Treatments Start: 03/11/21 13:40 Freq: Status: Active Protocol: Document 04/29/21 14:02 [facility] (Rec: 04/29/21 14:26 [facility] [id number]) Cardio Equipment Recumbent Bicycle Duration (Minutes) 8 Resistance 5 Gym Equipment Cable Column (Body Solid) Leg Extension Details leg extension Resistance 30# Reps/Time 2x10 Right leg doing most of the work Leg Curl Details hamstring curl Resistance 40# Reps/Time 3 x 10 Shuttle Recovery Unilateral Squats Resistance 50# Reps/Time Cues not to lock out, 20 reps Bilateral Heel Raises Details 50# Resistance 100# Shuttle Recovery Platform Stable Reps/Time 20 reps, ball between knees Bilateral Squats Resistance 75# Reps/Time Cues to keep heels up and not lock out, at least 20 reps Therapeutic Exercises Supine Exercises supine TKE Side left Comments with german stimulation supine bridges Reps/Minutes 2x10 reps PT-OP-R Modalities Start: 03/11/21 13:40 Freq: Status: Active Protocol: Document 04/29/21 13:50 [facility] (Rec: 04/29/21 17:29 [facility] [email or web address]) Electric Stimulation Electric Stimulation quad set w/ Ecuadorean stim Body Location left medial and middle quad Duration (Minutes) 10 Intensity 35 Comments pt notes she could feel more intensity at a lower level today with one pad placed over her quad and one pad placed on the VMO PT-OP-T Assessment and Plan Start: 03/11/21 13:40 Freq: Status: Active Protocol: Document 04/29/21 13:50 [facility] (Rec: 04/29/21 17:32 [facility] [email or web address]) Physical Therapy Assessment Assessment Summary Assessment Pt is trying to decide if she should go for further surgery do to her visit with MD. She is still having difficulty with TKE and feels like her knee gives out at times with gait. Physical Therapy Plan Frequency and Duration Frequency of Treatment 2x/Week Duration of Treatment 8 weeks Plan of Care Start Date 04/08/21 Plan of Care End Date 06/09/21 Therapeutic Interventions Therapeutic Interventions Aquatic Therapy,Balance Training,Canalithic Repositioning,Gait Training, Home Exercise Program,Joint Mobilizations,Manual Therapy, Neuromuscular Re-education, Patient/Caregiver Education, Self-Care/Home Management,Soft Tissue Mobilization,Taping, Therapeutic Activities, Therapeutic Exercises Modalities Cold Pack/Ice Massage,Electric Stimulation,Hot Packs Next Visit Focus/Plan Next Note Type Treatment Note Next Visit Plan continue with strengthening, balance training and gait training. Working on both quad and hamstring control.
--- NOTE | 2021-05-01 17:31 | PT.OTN ---
Current Diagnoses Unspecified fracture of left patella, initial encounter for closed fracture (05/01/21) Presence of left artificial knee joint (05/01/21) Physical Therapy Treatment Note PT-OP-A Visit Information Start: 03/11/21 13:40 Freq: Status: Active Protocol: Document 05/01/21 13:45 [facility] (Rec: 05/01/21 14:27 [facility] [id number]) Out-Patient Physical Therapy Visit Information Visit Information Visit Type Treatment Note Visit Start Time 13:45 Visit Stop Time 14:30 Total Visit Minutes 45 Visit Number 15 Number of CASHIER CLERK Visits 0 PT-OP-B Current Condition Start: 03/11/21 13:40 Freq: Status: Active Protocol: Document 03/11/21 14:00 [facility] (Rec: 03/11/21 14:14 [facility] [id number]) Current Condition History of Current Condition Onset Date 12/29/20 History of Current Condition pt is being seen s/p L patella fracture due to a ground level fall on 12/29/20 She has been in a knee imobilizer and was just released from this a couple of weeks ago. Nevaeh's chief complaint is knee weakness and she reports difficulty fully straightening her leg. SHe doesn't feel stable and has been using a 4 wheeled walker. SHe has low pain 2/10 unless she bumbs it or twists wrong. With stairs going up is okay but going down she needs assist. She has stairs in her house and there is railing on one side only Railing is on the left. She has been able to resume driving. She has been limited on walking and she feels aprehensive. PT-OP-C Subjective Start: 03/11/21 13:40 Freq: Status: Active Protocol: Document 05/01/21 13:45 [facility] (Rec: 05/01/21 14:27 [facility] [id number]) OP-PT Subjective Patient Comments Patient Comments Nevaeh reports she is more fatigued today as she was up a lot during the night with low back discomfort. She also took a muscle relaxor and still feels a little off from that. She does have a appointment booked with Dr. lFynn May 19 PT-OP-F Manual Assessment Start: 03/11/21 13:40 Freq: Status: Active Protocol: Document 03/11/21 14:00 [facility] (Rec: 03/12/21 09:28 [facility] [id number]) Manual Assessments Soft Tissue Assessment Soft Tissue Mobility Assessment tightness of the left quad PT-OP-G Mobility & Gait Start: 03/11/21 13:40 Freq: Status: Active Protocol: Document 03/11/21 14:00 [facility] (Rec: 03/12/21 09:28 [facility] [id number]) OP Mobility Evaluation Transfers Floor Transfers pt feels unable at this time OP Gait Assessment Assistive Devices Assistive Device 4 Wheeled Walker Gait Deviations General Gait Pattern Antalgic,Decreased Stride Length,Flexed Trunk Factors Limiting Gait Function Factors Limiting Gait Function Decreased Strength,Pain Comments Gait Comments pain in the right SI with gait , flexed forward posture, and decreased strength of the left LE Stair Climbing Evaluation Evaluation Level of Assist On Stairs Contact Guard Assistance Devices Stair Climbing Assistive Devices Left Railing,Right Railing Technique/Endurance Stair Climbing Technique Step to Step PT-OP-J Posture/Palpation/Skin Start: 03/11/21 13:40 Freq: Status: Active Protocol: Document 03/11/21 14:00 [facility] (Rec: 03/12/21 09:28 [facility] [id number]) Posture Evaluation Comments Posture Comments pt is using a 4 wheeled walker for gait, she tends to be in a forward flexed posture and needs verbal cues to straighten up Palpation Assessment Location right SI joint Palpation Findings Tenderness Palpation Details tightness in the soft tissue surrounding the R SI joint PT-OP-K Range of Motion Start: 03/11/21 13:40 Freq: Status: Active Protocol: Document 03/20/21 13:49 SP (Rec: 03/20/21 15:31 SP [id number]) Knee Goniometric Range of Motion Knee Left Knee ROM WFL No Patient Position Supine Flexion Active (degrees) 137 Extension Passive (degrees) 2 Comments history of B knee replacement PT-OP-M Strength Start: 03/11/21 13:40 Freq: Status: Active Protocol: Document 03/11/21 14:00 [facility] (Rec: 03/12/21 09:28 [facility] [id number]) Knee Strength Knee Manual Muscle Testing Left Flexion (S2) 3 Fair Extension (L3) 2 Poor Comments pt is unable to perform a seated TKE with full knee extension, she is able to perform a quad set PT-OP-Q Treatments Start: 03/11/21 13:40 Freq: Status: Active Protocol: Document 05/01/21 13:45 [facility] (Rec: 05/01/21 17:31 [facility] [email or web address]) Gym Equipment Cable Column (Body Solid) Leg Extension Details leg extension Resistance 30# Reps/Time 2x10 Right leg doing most of the work Leg Curl Details hamstring curl Resistance 40# Reps/Time 3 x 10 Shuttle Recovery Unilateral Squats Resistance 50# Reps/Time Cues not to lock out, 20 reps Bilateral Heel Raises Details 50# Resistance 100# Shuttle Recovery Platform Stable Reps/Time 20 reps, ball between knees Bilateral Squats Resistance 75# Reps/Time Cues to keep heels up and not lock out, at least 20 reps Therapeutic Exercises Supine Exercises ball squeeze with bridge Reps/Minutes 2 x 10 reps Sitting Exercises sit<> stands Sitting Exercise Name RLE forward more, LLE back under better = WB Resistance AROM cued full standing extension Equipment Used 24 table> 22 table no UE Reps/Minutes 9.5 reps 24 , 9.25 reps in 30sec Comments cued hip hinge, cued wt shift/ push into LLE glut/quad to standing extension seated TKE Sitting Exercise Name supine lower leg off table post manual Equipment Used assessed in supine Reps/Minutes x 10 reps Comments improved ROM post manual Standing Exercises step ups Reps/Minutes x 10 on both sets of stairs Comments cued for full knee extension PT-OP-R Modalities Start: 03/11/21 13:40 Freq: Status: Active Protocol: Document 04/29/21 13:50 [facility] (Rec: 04/29/21 17:29 [facility] [email or web address]) Electric Stimulation Electric Stimulation quad set w/ Citizen [place] stim Body Location left medial and middle quad Duration (Minutes) 10 Intensity 35 Comments pt notes she could feel more intensity at a lower level today with one pad placed over her quad and one pad placed on the VMO PT-OP-T Assessment and Plan Start: 03/11/21 13:40 Freq: Status: Active Protocol: Document 05/01/21 13:45 [facility] (Rec: 05/01/21 17:31 [facility] [email or web address]) Physical Therapy Assessment Assessment Summary Assessment I called and spoke with Dr. Flynn nurse today as Nevaeh was confused as to the plan of care for her knee. From my conversation with the nurse Nevaeh's patella fracture is not healing like expected and there are fragments loose which is most likely contributing to her lack of strength. She has a follow up with Dr. Flynn Physical Therapy Plan Frequency and Duration Frequency of Treatment 2x/Week Duration of Treatment 8 weeks Plan of Care Start Date 04/08/21 Plan of Care End Date 06/09/21 Therapeutic Interventions Therapeutic Interventions Aquatic Therapy,Balance Training,Canalithic Repositioning,Gait Training, Home Exercise Program,Joint Mobilizations,Manual Therapy, Neuromuscular Re-education, Patient/Caregiver Education, Self-Care/Home Management,Soft Tissue Mobilization,Taping, Therapeutic Activities, Therapeutic Exercises Modalities Cold Pack/Ice Massage,Electric Stimulation,Hot Packs Next Visit Focus/Plan Next Note Type Treatment Note Next Visit Plan Trial of kinesiotape next visit for increased support of the patella femoral joint.
--- NOTE | 2021-05-06 09:54 | PT-OP ANOTE ---
Pt did not show for 945 appointment today. When called her, she thought her appointment was at 1:45. Reminded her that it was on our schedule for 9:45, and made her aware of no-show fee. Offered a 12:15 opening. She agreed to come at 12:15. Commuincated with front end driver to schedule Pt at 12:15 today.
--- NOTE | 2021-05-06 16:35 | PT.OTN ---
Current Diagnoses Unspecified fracture of left patella, initial encounter for closed fracture (05/06/21) Presence of left artificial knee joint (05/06/21) Physical Therapy Treatment Note PT-OP-A Visit Information Start: 03/11/21 13:40 Freq: Status: Active Protocol: Document 05/06/21 12:13 ER (Rec: 05/06/21 12:59 ER [id number]) Out-Patient Physical Therapy Visit Information Visit Information Visit Type Treatment Note Visit Note ESTELA Strauss lead treatment and provided education under direct supervision and instruction of ANIMAL MAINTENANCE SUPERVISOR Fam Visit Start Time 12:15 Visit Stop Time 13:00 Total Visit Minutes 45 Visit Number 16 Number of ANIMAL MAINTENANCE SUPERVISOR Visits 1 PT-OP-B Current Condition Start: 03/11/21 13:40 Freq: Status: Active Protocol: Document 03/11/21 14:00 [facility] (Rec: 03/11/21 14:14 [facility] [id number]) Current Condition History of Current Condition Onset Date 12/29/20 History of Current Condition pt is being seen s/p L patella fracture due to a ground level fall on 12/29/20 She has been in a knee imobilizer and was just released from this a couple of weeks ago. Nevaeh's chief complaint is knee weakness and she reports difficulty fully straightening her leg. SHe doesn't feel stable and has been using a 4 wheeled walker. SHe has low pain 2/10 unless she bumbs it or twists wrong. With stairs going up is okay but going down she needs assist. She has stairs in her house and there is railing on one side only Railing is on the left. She has been able to resume driving. She has been limited on walking and she feels aprehensive. PT-OP-C Subjective Start: 03/11/21 13:40 Freq: Status: Active Protocol: Document 05/06/21 12:13 ER (Rec: 05/06/21 12:59 ER [id number]) OP-PT Subjective Patient Comments Patient Comments Pt said she has a follow up appointment with her surgeon May 19, and that she thinks he may want to do a minor surgery to clean up little pieces still in the joint. PT-OP-F Manual Assessment Start: 03/11/21 13:40 Freq: Status: Active Protocol: Document 03/11/21 14:00 [facility] (Rec: 03/12/21 09:28 [facility] [email or web address]) Manual Assessments Soft Tissue Assessment Soft Tissue Mobility Assessment tightness of the left quad PT-OP-G Mobility & Gait Start: 03/11/21 13:40 Freq: Status: Active Protocol: Document 03/11/21 14:00 [facility] (Rec: 03/12/21 09:28 [facility] [id number]) OP Mobility Evaluation Transfers Floor Transfers pt feels unable at this time OP Gait Assessment Assistive Devices Assistive Device 4 Wheeled Walker Gait Deviations General Gait Pattern Antalgic,Decreased Stride Length,Flexed Trunk Factors Limiting Gait Function Factors Limiting Gait Function Decreased Strength,Pain Comments Gait Comments pain in the right SI with gait , flexed forward posture, and decreased strength of the left LE Stair Climbing Evaluation Evaluation Level of Assist On Stairs Contact Guard Assistance Devices Stair Climbing Assistive Devices Left Railing,Right Railing Technique/Endurance Stair Climbing Technique Step to Step PT-OP-J Posture/Palpation/Skin Start: 03/11/21 13:40 Freq: Status: Active Protocol: Document 03/11/21 14:00 [facility] (Rec: 03/12/21 09:28 [facility] [id number]) Posture Evaluation Comments Posture Comments pt is using a 4 wheeled walker for gait, she tends to be in a forward flexed posture and needs verbal cues to straighten up Palpation Assessment Location right SI joint Palpation Findings Tenderness Palpation Details tightness in the soft tissue surrounding the R SI joint PT-OP-K Range of Motion Start: 03/11/21 13:40 Freq: Status: Active Protocol: Document 03/20/21 13:49 SP (Rec: 03/20/21 15:31 SP [id number]) Knee Goniometric Range of Motion Knee Left Knee ROM WFL No Patient Position Supine Flexion Active (degrees) 137 Extension Passive (degrees) 2 Comments history of B knee replacement PT-OP-M Strength Start: 03/11/21 13:40 Freq: Status: Active Protocol: Document 03/11/21 14:00 [facility] (Rec: 03/12/21 09:28 [facility] [email or web address]) Knee Strength Knee Manual Muscle Testing Left Flexion (S2) 3 Fair Extension (L3) 2 Poor Comments pt is unable to perform a seated TKE with full knee extension, she is able to perform a quad set PT-OP-Q Treatments Start: 03/11/21 13:40 Freq: Status: Active Protocol: Document 05/06/21 12:13 ER (Rec: 05/06/21 12:59 ER [id number]) Cardio Equipment Bicycle (Upright) Duration (Minutes) 10 Resistance 8 Seat Position 10 Other 40 RPMs, full revolutions Gym Equipment Shuttle Recovery Unilateral Squats Resistance 50# Reps/Time Bilateral, cues for slow reps, not lock out, 20 reps Bilateral Heel Raises Resistance 87# Shuttle Recovery Platform Stable Reps/Time 20 reps. Cues for foot placement. Bilateral Squats Resistance 87# Shuttle Recovery Platform Stable Reps/Time cues to not lock out, full extension of knees Therapeutic Exercises Sitting Exercises sit<> stands Sitting Exercise Name RLE forward more, LLE back under better = WB Resistance AROM Equipment Used 18 chair with airex Reps/Minutes 5 reps, 3 w/o UE support Comments cued to hinge at hips, deep lean, shifting weight forward. Standing Exercises step ups Reps/Minutes x 10 on both sets of stairs Comments cued for full knee extension Manual Therapy Treatment Taping R Quad Body Location R quad from below knee to mid proximal thigh Treatment Focus support Type of Tape Kinesio Tape Skin Inspection Skin clean and free from damage. Comments R Taped from proximal anterior tibia, laterally around patella, extending to middle proximal thigh. Also applied tape from distal femur along midline of rectus femorus. Previously tape lateral and medial R knee left in place. Pt reports RLE felt more stable post taping. PT-OP-R Modalities Start: 03/11/21 13:40 Freq: Status: Active Protocol: Document 04/29/21 13:50 [facility] (Rec: 04/29/21 17:29 [facility] [email or web address]) Electric Stimulation Electric Stimulation quad set w/ [place] stim Body Location left medial and middle quad Duration (Minutes) 10 Intensity 35 Comments pt notes she could feel more intensity at a lower level today with one pad placed over her quad and one pad placed on the VMO PT-OP-T Assessment and Plan Start: 03/11/21 13:40 Freq: Status: Active Protocol: Document 05/06/21 12:13 ER (Rec: 05/06/21 12:59 ER [id number]) Physical Therapy Assessment Goals 8 Mcc Goal (LTG) Pt will perform 8 reps sit to stand with minimal to no UE support in 30 sec to improve functional transfers by 06/08/21 . 04/08/21: Pt performs 6 reps with minimal B UE support in mesh chair with arms today : pt ableto complete sit<> stand from 24 raised table without UE support with even wB BLE: R Le positioned more front and cues for wt shift forward. 04/22/21: no UE support: 24 table height: 9.5 reps in 30 sec. 22 table height: 9.25 reps LTG Duration 8 weeks 7 Mcc Goal (LTG) Pt will perform WNLs on a standardized balance test to decrease fall risk by 06/08/21. LTG Duration 8 weeks 6 Mcc Goal (LTG) Pt will ascend and descend 12 steps with left rail ascend and cane in opposite hand and mod I to improve home mobility by 06/08/21. 04/08/21: Pt ascend and descend 4 standard steps x4 with left rail and occ reaching for right and CGA at gait belt with occ step-to gait and then cues to keep both hands on the left rail ascend and right rail descend since this is her set-up at home. 04/22/21: progressing: pt able to ascend/descend 12 stairs BUE receiprocal stepping with Moderrate UE WB opn BUE HR, will progress 1 HR, SPC soon. LTG Duration 8 weeks 5 Postal Carrier Goal (LTG) Pt will gait train at least 1200 feet with LRAD in 6 minutes to improve community ambulation by 06/08/21. 04/08/21: Pt gait trains 978 feet in 6 minutes with rollator. She presents with left hip with decreased flexion, decreased left knee flexion and extension with some guarding that pt reports is related to instability. LTG Duration 8 weeks Assessment Summary Assessment Pt continues to have difficulty coming to full extension, but not lock out on Shuttle recovery exercises. Weights for all shuttle exercises were reduced today. Pt could not support higher weights today. Taped R quads, with good feedback from Pt, who said she felt leg was better supported, even during Shuttle exercises. Pt continues to have difficulty leaning forward sufficiently to weight shift and come to standing with STS. Was able to perform without UE support 3 times, but only 2 more times with RUE support, before fatigueing. Physical Therapy Plan Frequency and Duration Frequency of Treatment 2x/Week Duration of Treatment 8 weeks Plan of Care Start Date 04/08/21 Plan of Care End Date 06/09/21 Therapeutic Interventions Therapeutic Interventions Aquatic Therapy,Balance Training,Canalithic Repositioning,Gait Training, Home Exercise Program,Joint Mobilizations,Manual Therapy, Neuromuscular Re-education, Patient/Caregiver Education, Self-Care/Home Management,Soft Tissue Mobilization,Taping, Therapeutic Activities, Therapeutic Exercises Modalities Cold Pack/Ice Massage,Electric Stimulation,Hot Packs Next Visit Focus/Plan Next Note Type Treatment Note Next Visit Plan Assess kinesiotape trial. Reapply if beneficial. Gait, steps, STS.
--- NOTE | 2021-05-08 16:23 | PT.OTN ---
Current Diagnoses Unspecified fracture of left patella, initial encounter for closed fracture (05/08/21) Presence of left artificial knee joint (05/08/21) Physical Therapy Treatment Note PT-OP-A Visit Information Start: 03/11/21 13:40 Freq: Status: Active Protocol: Document 05/08/21 14:39 [facility] (Rec: 05/08/21 16:23 [facility] [id number]) Out-Patient Physical Therapy Visit Information Visit Information Visit Type Treatment Note Visit Start Time 14:35 Visit Stop Time 15:15 Total Visit Minutes 40 Visit Number 17 Number of [employer] Visits 0 PT-OP-B Current Condition Start: 03/11/21 13:40 Freq: Status: Active Protocol: Document 03/11/21 14:00 [facility] (Rec: 03/11/21 14:14 [facility] [id number]) Current Condition History of Current Condition Onset Date 12/29/20 History of Current Condition pt is being seen s/p L patella fracture due to a ground level fall on 12/29/20 She has been in a knee imobilizer and was just released from this a couple of weeks ago. Nevaeh's chief complaint is knee weakness and she reports difficulty fully straightening her leg. SHe doesn't feel stable and has been using a 4 wheeled walker. SHe has low pain 2/10 unless she bumbs it or twists wrong. With stairs going up is okay but going down she needs assist. She has stairs in her house and there is railing on one side only Railing is on the left. She has been able to resume driving. She has been limited on walking and she feels aprehensive. PT-OP-C Subjective Start: 03/11/21 13:40 Freq: Status: Active Protocol: Document 05/08/21 14:39 [facility] (Rec: 05/08/21 16:23 [facility] [id number]) OP-PT Subjective Patient Comments Patient Comments Pt reports she still doesn't trust her knee because she never knows when it is going to give out. PT-OP-F Manual Assessment Start: 03/11/21 13:40 Freq: Status: Active Protocol: Document 03/11/21 14:00 [facility] (Rec: 03/12/21 09:28 [facility] [email or web address]) Manual Assessments Soft Tissue Assessment Soft Tissue Mobility Assessment tightness of the left quad PT-OP-G Mobility & Gait Start: 03/11/21 13:40 Freq: Status: Active Protocol: Document 03/11/21 14:00 [facility] (Rec: 03/12/21 09:28 [facility] [email or web address]) OP Mobility Evaluation Transfers Floor Transfers pt feels unable at this time OP Gait Assessment Assistive Devices Assistive Device 4 Wheeled Walker Gait Deviations General Gait Pattern Antalgic,Decreased Stride Length,Flexed Trunk Factors Limiting Gait Function Factors Limiting Gait Function Decreased Strength,Pain Comments Gait Comments pain in the right SI with gait , flexed forward posture, and decreased strength of the left LE Stair Climbing Evaluation Evaluation Level of Assist On Stairs Contact Guard Assistance Devices Stair Climbing Assistive Devices Left Railing,Right Railing Technique/Endurance Stair Climbing Technique Step to Step PT-OP-J Posture/Palpation/Skin Start: 03/11/21 13:40 Freq: Status: Active Protocol: Document 03/11/21 14:00 [facility] (Rec: 03/12/21 09:28 [facility] [email or web address]) Posture Evaluation Comments Posture Comments pt is using a 4 wheeled walker for gait, she tends to be in a forward flexed posture and needs verbal cues to straighten up Palpation Assessment Location right SI joint Palpation Findings Tenderness Palpation Details tightness in the soft tissue surrounding the R SI joint PT-OP-K Range of Motion Start: 03/11/21 13:40 Freq: Status: Active Protocol: Document 03/20/21 13:49 SP (Rec: 03/20/21 15:31 SP [id number]) Knee Goniometric Range of Motion Knee Left Knee ROM WFL No Patient Position Supine Flexion Active (degrees) 137 Extension Passive (degrees) 2 Comments history of B knee replacement PT-OP-M Strength Start: 03/11/21 13:40 Freq: Status: Active Protocol: Document 03/11/21 14:00 [facility] (Rec: 03/12/21 09:28 [facility] [email or web address]) Knee Strength Knee Manual Muscle Testing Left Flexion (S2) 3 Fair Extension (L3) 2 Poor Comments pt is unable to perform a seated TKE with full knee extension, she is able to perform a quad set PT-OP-Q Treatments Start: 03/11/21 13:40 Freq: Status: Active Protocol: Document 05/08/21 14:39 [facility] (Rec: 05/08/21 16:23 [facility] [id number]) Cardio Equipment Recumbent Bicycle Duration (Minutes) 8 Resistance 7-9 Seat Position 9 Gym Equipment Shuttle Recovery Unilateral Squats Resistance 50# Reps/Time Bilateral, cues for slow reps, not lock out, 2x10 reps Bilateral Squats Details cues for slow ocntrolled motion Resistance 75# Shuttle Recovery Platform Stable Reps/Time 5x 87#,75# x30, 87# x10 Therapeutic Exercises Standing Exercises squat Standing Exercise Name 50% Side bilateral Equipment Used rail for going down Reps/Minutes 15 step ups Standing Exercise Name step up and down Side left Reps/Minutes x10 Comments 1 rail and 4 in step heel raises Side bilateral Reps/Minutes 20 Comments cues for knee ext during, rail for balance Neuro Re-Education Treatment Balance Activities Hurdles Surface firm Comments 1. step through 6 hurdles fwd x8 2. sidestep over x 2 2 Details tandem stance B PT-OP-R Modalities Start: 03/11/21 13:40 Freq: Status: Active Protocol: Document 04/29/21 13:50 [facility] (Rec: 04/29/21 17:29 [facility] [email or web address]) Electric Stimulation Electric Stimulation quad set w/ Syrian stim Body Location left medial and middle quad Duration (Minutes) 10 Intensity 35 Comments pt notes she could feel more intensity at a lower level today with one pad placed over her quad and one pad placed on the VMO PT-OP-T Assessment and Plan Start: 03/11/21 13:40 Freq: Status: Active Protocol: Document 05/08/21 14:39 [facility] (Rec: 05/08/21 16:23 [facility] [id number]) Physical Therapy Assessment Goals 8 Transmission Mechanic Goal (LTG) Pt will perform 8 reps sit to stand with minimal to no UE support in 30 sec to improve functional transfers by 06/08/21 . 04/08/21: Pt performs 6 reps with minimal B UE support in mesh chair with arms today : pt ableto complete sit<> stand from 24 raised table without UE support with even wB BLE: R Le positioned more front and cues for wt shift forward. 04/22/21: no UE support: 24 table height: 9.5 reps in 30 sec. 22 table height: 9.25 reps LTG Duration 8 weeks 7 Transmission Mechanic Goal (LTG) Pt will perform WNLs on a standardized balance test to decrease fall risk by 06/08/21. LTG Duration 8 weeks 6 Transmission Mechanic Goal (LTG) Pt will ascend and descend 12 steps with left rail ascend and cane in opposite hand and mod I to improve home mobility by 06/08/21. 04/08/21: Pt ascend and descend 4 standard steps x4 with left rail and occ reaching for right and CGA at gait belt with occ step-to gait and then cues to keep both hands on the left rail ascend and right rail descend since this is her set-up at home. 04/22/21: progressing: pt able to ascend/descend 12 stairs BUE receiprocal stepping with Moderrate UE WB opn BUE HR, will progress 1 HR, SPC soon. LTG Duration 8 weeks 5 Intermediate Goal (LTG) Pt will gait train at least 1200 feet with LRAD in 6 minutes to improve community ambulation by 06/08/21. 04/08/21: Pt gait trains 978 feet in 6 minutes with rollator. She presents with left hip with decreased flexion, decreased left knee flexion and extension with some guarding that pt reports is related to instability. LTG Duration 8 weeks Assessment Summary Assessment Pt still has difficulty w/quad control and has no contorl w/ decent w/standing on LLE ons tep and struggled when going slowly w/step up onto LLE. She initially had some L knee pain w./87# on leg press so dec weight for long set which was very easy for pt but after 1 set at 75#, no pain w/87# and able to do 10 reps more. Pt notes fatigue w/session. She did have mult times where L knee did buckle some when WB Physical Therapy Plan Frequency and Duration Frequency of Treatment 2x/Week Duration of Treatment 8 weeks Plan of Care Start Date 04/08/21 Plan of Care End Date 06/09/21 Next Visit Focus/Plan Next Note Type Progress Note Next Visit Plan 10th visit progress note, cont to work on gait and standing stability, stairs, sit to stands
--- NOTE | 2021-05-20 13:00 | PT.OTN ---
Current Diagnoses Unspecified fracture of left patella, initial encounter for closed fracture (05/20/21) Presence of left artificial knee joint (05/20/21) Physical Therapy Treatment Note PT-OP-A Visit Information Start: 03/11/21 13:40 Freq: Status: Active Protocol: Document 05/20/21 12:17 SP (Rec: 05/20/21 13:01 SP [id number]) Out-Patient Physical Therapy Visit Information Visit Information Visit Type Treatment Note Visit Note Pt has 3 more appts, next with PT. Unsure when having surgery L knee. next tx write PN 19th visit, before last 2 appts with [employer], may need add more for new year unless saving post surgery, ask next tx. Visit Start Time 12:17 Visit Stop Time 13:00 Total Visit Minutes 43 Visit Number 18 Number of [employer] Visits 1 Evaluation Information Evaluation Date 03/11/21 PT-OP-B Current Condition Start: 03/11/21 13:40 Freq: Status: Active Protocol: Document 03/11/21 14:00 [facility] (Rec: 03/11/21 14:14 [facility] [id number]) Current Condition History of Current Condition Onset Date 12/29/20 History of Current Condition pt is being seen s/p L patella fracture due to a ground level fall on 12/29/20 She has been in a knee imobilizer and was just released from this a couple of weeks ago. Nevaeh's chief complaint is knee weakness and she reports difficulty fully straightening her leg. SHe doesn't feel stable and has been using a 4 wheeled walker. SHe has low pain 2/10 unless she bumbs it or twists wrong. With stairs going up is okay but going down she needs assist. She has stairs in her house and there is railing on one side only Railing is on the left. She has been able to resume driving. She has been limited on walking and she feels aprehensive. PT-OP-C Subjective Start: 03/11/21 13:40 Freq: Status: Active Protocol: Document 05/20/21 12:17 SP (Rec: 05/20/21 13:01 SP [id number]) OP-PT Subjective Patient Comments Patient Comments Pt reports her and family have decided to go in ahead with surgery in upcoming year. PT-OP-F Manual Assessment Start: 03/11/21 13:40 Freq: Status: Active Protocol: Document 03/11/21 14:00 [facility] (Rec: 03/12/21 09:28 [facility] [email or web address]) Manual Assessments Soft Tissue Assessment Soft Tissue Mobility Assessment tightness of the left quad PT-OP-G Mobility & Gait Start: 03/11/21 13:40 Freq: Status: Active Protocol: Document 03/11/21 14:00 [facility] (Rec: 03/12/21 09:28 [facility] [email or web address]) OP Mobility Evaluation Transfers Floor Transfers pt feels unable at this time OP Gait Assessment Assistive Devices Assistive Device 4 Wheeled Walker Gait Deviations General Gait Pattern Antalgic,Decreased Stride Length,Flexed Trunk Factors Limiting Gait Function Factors Limiting Gait Function Decreased Strength,Pain Comments Gait Comments pain in the right SI with gait , flexed forward posture, and decreased strength of the left LE Stair Climbing Evaluation Evaluation Level of Assist On Stairs Contact Guard Assistance Devices Stair Climbing Assistive Devices Left Railing,Right Railing Technique/Endurance Stair Climbing Technique Step to Step PT-OP-J Posture/Palpation/Skin Start: 03/11/21 13:40 Freq: Status: Active Protocol: Document 03/11/21 14:00 [facility] (Rec: 03/12/21 09:28 [facility] [email or web address]) Posture Evaluation Comments Posture Comments pt is using a 4 wheeled walker for gait, she tends to be in a forward flexed posture and needs verbal cues to straighten up Palpation Assessment Location right SI joint Palpation Findings Tenderness Palpation Details tightness in the soft tissue surrounding the R SI joint PT-OP-K Range of Motion Start: 03/11/21 13:40 Freq: Status: Active Protocol: Document 03/20/21 13:49 SP (Rec: 03/20/21 15:31 SP [id number]) Knee Goniometric Range of Motion Knee Left Knee ROM WFL No Patient Position Supine Flexion Active (degrees) 137 Extension Passive (degrees) 2 Comments history of B knee replacement PT-OP-M Strength Start: 03/11/21 13:40 Freq: Status: Active Protocol: Document 03/11/21 14:00 [facility] (Rec: 03/12/21 09:28 [facility] [email or web address]) Knee Strength Knee Manual Muscle Testing Left Flexion (S2) 3 Fair Extension (L3) 2 Poor Comments pt is unable to perform a seated TKE with full knee extension, she is able to perform a quad set PT-OP-Q Treatments Start: 03/11/21 13:40 Freq: Status: Active Protocol: Document 05/20/21 12:17 SP (Rec: 05/20/21 13:01 SP [id number]) Cardio Equipment Recumbent Stepper (Sci-Fit) Duration (Minutes) 8 Resistance 4.5 Seat Position 14 Other UE/ LE 45-50 RPM Therapeutic Exercises Sitting Exercises sit<> stands Sitting Exercise Name feet //-Hep review Resistance AROM Equipment Used 18 chair with blue airex Reps/Minutes 5 reps in 25 sec Comments cued to hinge at hips, deep lean, shifting weight forward . Standing Exercises heel raises Standing Exercise Name HEP review Side bilateral Reps/Minutes x20 Comments cues for knee ext during, rail for balance Gait Training Gait Activity gait no AD Description lrg mat table <> 4 step stairs Device Used 350 ft Level of Assistance SBA- CGA Surface firm Treatment Focus stride length, quad facilitation during midstance with = stance time,postu Comments Cued tall posture carrying book on head, equal normal stride and stance time, tends to increase stance time on LLE and hard eccentric land on RLE. Neuro Re-Education Treatment Balance Activities 1 laith stepping Surface firm Comments 1 laith over/back> receiprocal QC> METALS SALES REPRESENTATIVE> contact 10%A GB and anterior shld- cued patterning Hurdles Surface firm Comments 1. step through 6 hurdles fwd x8 2. sidestep over x 2 Self-Care/Home Management Treatment Education Patient Education Body Mechanics,Posture Other Education Min education on tall chest lift posture cues maintaining book on head improved self corrections. PT-OP-R Modalities Start: 03/11/21 13:40 Freq: Status: Active Protocol: Document 04/29/21 13:50 [facility] (Rec: 04/29/21 17:29 [facility] [email or web address]) Electric Stimulation Electric Stimulation quad set w/ Japanese stim Body Location left medial and middle quad Duration (Minutes) 10 Intensity 35 Comments pt notes she could feel more intensity at a lower level today with one pad placed over her quad and one pad placed on the VMO PT-OP-T Assessment and Plan Start: 03/11/21 13:40 Freq: Status: Active Protocol: Document 05/20/21 12:17 SP (Rec: 05/20/21 13:01 SP [id number]) Physical Therapy Assessment Goals 8 Installation & Maintenance Executive Goal (LTG) Pt will perform 8 reps sit to stand with minimal to no UE support in 30 sec to improve functional transfers by 06/08/21 . 04/08/21: Pt performs 6 reps with minimal B UE support in mesh chair with arms today : pt ableto complete sit<> stand from 24 raised table without UE support with even wB BLE: R Le positioned more front and cues for wt shift forward. 04/22/21: no UE support: 24 table height: 9.5 reps in 30 sec. 22 table height: 9.25 reps 05/20/21: 5 reps in 30 sec 18 chair and airex, arms front. LTG Duration 8 weeks 7 Installation & Maintenance Executive Goal (LTG) Pt will perform WNLs on a standardized balance test to decrease fall risk by 06/08/21. LTG Duration 8 weeks 6 [facility] Goal (LTG) Pt will ascend and descend 12 steps with left rail ascend and cane in opposite hand and mod I to improve home mobility by 06/08/21. 04/08/21: Pt ascend and descend 4 standard steps x4 with left rail and occ reaching for right and CGA at gait belt with occ step-to gait and then cues to keep both hands on the left rail ascend and right rail descend since this is her set-up at home. 04/22/21: progressing: pt able to ascend/descend 12 stairs BUE receiprocal stepping with Moderrate UE WB opn BUE HR, will progress 1 HR, SPC soon. LTG Duration 8 weeks 5 [facility] Goal (LTG) Pt will gait train at least 1200 feet with LRAD in 6 minutes to improve community ambulation by 06/08/21. 04/08/21: Pt gait trains 978 feet in 6 minutes with rollator. She presents with left hip with decreased flexion, decreased left knee flexion and extension with some guarding that pt reports is related to instability. LTG Duration 8 weeks Assessment Summary Assessment Pt worked hard this tx with focus on posture, L quad facilitation into SLS single laith stepping w/ support QC > METALS SALES REPRESENTATIVE> contact support at gait belt anterior R shld, cues for tall trunk posture during LLE stance f/b improved 25%> 10%A support. Reviewed without AD, cues for smaller stride, slower pacing with chest lift UB posture, improved gait phase quality ableto complete 2 laps around gym. Reviewed heel raises contact rail,cued contact rail for balance support, equal wt distribution BLE and stability. Physical Therapy Plan Frequency and Duration Frequency of Treatment 2x/Week Duration of Treatment 8 weeks Plan of Care Start Date 04/08/21 Plan of Care End Date 06/09/21 Therapeutic Interventions Therapeutic Interventions Aquatic Therapy,Balance Training,Canalithic Repositioning,Gait Training, Home Exercise Program,Joint Mobilizations,Manual Therapy, Neuromuscular Re-education, Patient/Caregiver Education, Self-Care/Home Management,Soft Tissue Mobilization,Taping, Therapeutic Activities, Therapeutic Exercises Modalities Cold Pack/Ice Massage,Electric Stimulation,Hot Packs Next Visit Focus/Plan Next Note Type Progress Note Next Visit Plan 9th visit progress note next tx, c POC: continue to work on gait and standing stability, stairs , sit to stands.
--- NOTE | 2021-05-21 17:56 | PT.OTN ---
Current Diagnoses Unspecified fracture of left patella, initial encounter for closed fracture (05/21/21) Presence of left artificial knee joint (05/21/21) Physical Therapy Treatment Note PT-OP-A Visit Information Start: 03/11/21 13:40 Freq: Status: Active Protocol: Document 05/21/21 11:14 JG (Rec: 05/21/21 12:10 JG [id number]) Out-Patient Physical Therapy Visit Information Visit Information Visit Type Treatment Note Visit Note ROLAND Gomez was directly supervised by MICHEAL Geiger Visit Start Time 11:18 Visit Stop Time 12:02 Total Visit Minutes 44 Visit Number 19 Number of PAVING BED MAKER Visits 0 PT-OP-B Current Condition Start: 03/11/21 13:40 Freq: Status: Active Protocol: Document 03/11/21 14:00 [facility] (Rec: 03/11/21 14:14 [facility] [id number]) Current Condition History of Current Condition Onset Date 12/29/20 History of Current Condition pt is being seen s/p L patella fracture due to a ground level fall on 12/29/20 She has been in a knee imobilizer and was just released from this a couple of weeks ago. Nevaeh's chief complaint is knee weakness and she reports difficulty fully straightening her leg. SHe doesn't feel stable and has been using a 4 wheeled walker. SHe has low pain 2/10 unless she bumbs it or twists wrong. With stairs going up is okay but going down she needs assist. She has stairs in her house and there is railing on one side only Railing is on the left. She has been able to resume driving. She has been limited on walking and she feels aprehensive. PT-OP-C Subjective Start: 03/11/21 13:40 Freq: Status: Active Protocol: Document 05/21/21 11:14 JG (Rec: 05/21/21 12:10 JG [id number]) OP-PT Subjective Patient Comments Patient Comments Pt is looking forward to post- surgery when she can put more weight through her L LE, but isn't looking forward to the knee stabilizing brace. PT-OP-D Balance Start: 03/12/21 10:38 Freq: Status: Active Protocol: Document 05/21/21 11:14 JG (Rec: 05/21/21 12:15 JG [id number]) Balance Tests Camacho Balance Test Camacho Balance Test Score 41/56 Camacho Impairment Rating 20 to 39% Impaired (Score 34- 44) PT-OP-F Manual Assessment Start: 03/11/21 13:40 Freq: Status: Active Protocol: Document 03/11/21 14:00 [facility] (Rec: 03/12/21 09:28 [facility] [email or web address]) Manual Assessments Soft Tissue Assessment Soft Tissue Mobility Assessment tightness of the left quad PT-OP-G Mobility & Gait Start: 03/11/21 13:40 Freq: Status: Active Protocol: Document 03/11/21 14:00 [facility] (Rec: 03/12/21 09:28 [facility] [email or web address]) OP Mobility Evaluation Transfers Floor Transfers pt feels unable at this time OP Gait Assessment Assistive Devices Assistive Device 4 Wheeled Walker Gait Deviations General Gait Pattern Antalgic,Decreased Stride Length,Flexed Trunk Factors Limiting Gait Function Factors Limiting Gait Function Decreased Strength,Pain Comments Gait Comments pain in the right SI with gait , flexed forward posture, and decreased strength of the left LE Stair Climbing Evaluation Evaluation Level of Assist On Stairs Contact Guard Assistance Devices Stair Climbing Assistive Devices Left Railing,Right Railing Technique/Endurance Stair Climbing Technique Step to Step PT-OP-J Posture/Palpation/Skin Start: 03/11/21 13:40 Freq: Status: Active Protocol: Document 03/11/21 14:00 [facility] (Rec: 03/12/21 09:28 [facility] [email or web address]) Posture Evaluation Comments Posture Comments pt is using a 4 wheeled walker for gait, she tends to be in a forward flexed posture and needs verbal cues to straighten up Palpation Assessment Location right SI joint Palpation Findings Tenderness Palpation Details tightness in the soft tissue surrounding the R SI joint PT-OP-K Range of Motion Start: 03/11/21 13:40 Freq: Status: Active Protocol: Document 03/20/21 13:49 SP (Rec: 03/20/21 15:31 SP [id number]) Knee Goniometric Range of Motion Knee Left Knee ROM WFL No Patient Position Supine Flexion Active (degrees) 137 Extension Passive (degrees) 2 Comments history of B knee replacement PT-OP-M Strength Start: 03/11/21 13:40 Freq: Status: Active Protocol: Document 03/11/21 14:00 [facility] (Rec: 03/12/21 09:28 [facility] [email or web address]) Knee Strength Knee Manual Muscle Testing Left Flexion (S2) 3 Fair Extension (L3) 2 Poor Comments pt is unable to perform a seated TKE with full knee extension, she is able to perform a quad set PT-OP-Q Treatments Start: 03/11/21 13:40 Freq: Status: Active Protocol: Document 05/21/21 11:14 JG (Rec: 05/21/21 12:10 JG [id number]) Cardio Equipment Recumbent Bicycle Duration (Minutes) 8 Resistance 8 Seat Position 9 Gait Training Gait Activity 6MWT Device Used FWW Level of Assistance SBA, CG Surface firm/ level carpet Distance/Duration 911.5 FT Treatment Focus toe clearance, foot stride length Comments cued tall posture closer to FWW stair mgt Description ascend, descend 14 steps w/SPC and L railing Device Used SPC, L railing Level of Assistance CGA Surface indoor lobby stairs Distance/Duration 14 steps Treatment Focus SPC management Comments w/step-to gait leading w/R ascending, L descending PT-OP-R Modalities Start: 03/11/21 13:40 Freq: Status: Active Protocol: Document 04/29/21 13:50 [facility] (Rec: 04/29/21 17:29 [facility] [email or web address]) Electric Stimulation Electric Stimulation quad set w/ [place] stim Body Location left medial and middle quad Duration (Minutes) 10 Intensity 35 Comments pt notes she could feel more intensity at a lower level today with one pad placed over her quad and one pad placed on the VMO PT-OP-T Assessment and Plan Start: 03/11/21 13:40 Freq: Status: Active Protocol: Document 05/21/21 11:14 JG (Rec: 05/21/21 12:10 JG [id number]) Physical Therapy Assessment Goals 8 Basket Maker Goal (LTG) Pt will perform 8 reps sit to stand with minimal to no UE support in 30 sec to improve functional transfers by 06/08/21 . 04/08/21: Pt performs 6 reps with minimal B UE support in mesh chair with arms today : pt ableto complete sit<> stand from 24 raised table without UE support with even wB BLE: R Le positioned more front and cues for wt shift forward. 04/22/21: no UE support: 24 table height: 9.5 reps in 30 sec. 22 table height: 9.25 reps 05/20/21: 5 reps in 30 sec 18 chair and airex, arms front. 05/21/21: 4 STS in 30 sec 18 chair and airex, w/UE armrest use. LTG Duration 8 weeks 7 Nursing Home Goal (LTG) Pt will perform WNLs on a standardized balance test to decrease fall risk by 06/08/21. 05/21/21: Pt scored 41/56 on Camacho Balance Test which places her at bottom of independent walking, but in the fall risk category. LTG Duration 8 weeks 6 Basket Maker Goal (LTG) Pt will ascend and descend 12 steps with left rail ascend and cane in opposite hand and mod I to improve home mobility by 06/08/21. 04/08/21: Pt ascend and descend 4 standard steps x4 with left rail and occ reaching for right and CGA at gait belt with occ step-to gait and then cues to keep both hands on the left rail ascend and right rail descend since this is her set-up at home. 04/22/21: progressing: pt able to ascend/descend 12 stairs BUE receiprocal stepping with Moderrate UE WB opn BUE HR, will progress 1 HR, SPC soon. 05/21/21: pt ascend/descend 14 steps w/L railing, SPC, CGA, and step-to gait LTG Duration 8 weeks 5 Basket Maker Goal (LTG) Pt will gait train at least 1200 feet with LRAD in 6 minutes to improve community ambulation by 06/08/21. 04/08/21: Pt gait trains 978 feet in 6 minutes with rollator. She presents with left hip with decreased flexion, decreased left knee flexion and extension with some guarding that pt reports is related to instability. 05/21/21: Pt amb 911.5 feet in 6 minutes. LTG Duration 8 weeks Assessment Summary Assessment Pt is preparing for L patellar surgery which will occur on . Pt progressed by several hundred feet from original 6MWT, but is still several hundred feet from her goal and slightly less than assessed last month. Pt completed Camacho Balance Test which places her at the bottom of indepent, but still in the fall risk category. Pt continues req UE use w/STS and FWW while amb. Pt would benefit from further OP PT to increase functional mobility, increase amb duration ability, increase standing balance, and increase L LE strength. Physical Therapy Plan Frequency and Duration Frequency of Treatment 2x/Week Duration of Treatment 8 weeks Plan of Care Start Date 04/08/21 Plan of Care End Date 06/09/21 Next Visit Focus/Plan Next Note Type Treatment Note Next Visit Plan continue to work on gait, STS, stairs, standing static and dynamic balance.
--- NOTE | 2021-05-29 13:00 | PT.OTN ---
Current Diagnoses Unspecified fracture of left patella, initial encounter for closed fracture (05/29/21) Presence of left artificial knee joint (05/29/21) Physical Therapy Treatment Note PT-OP-A Visit Information Start: 03/11/21 13:40 Freq: Status: Active Protocol: Document 05/29/21 12:15 SP (Rec: 05/29/21 13:04 SP [id number]) Out-Patient Physical Therapy Visit Information Visit Information Visit Type Treatment Note Visit Start Time 12:15 Visit Stop Time 13:00 Total Visit Minutes 45 Visit Number 20 Number of PM HEAD COOK Visits 1 Evaluation Information Evaluation Date 03/11/21 PT-OP-B Current Condition Start: 03/11/21 13:40 Freq: Status: Active Protocol: Document 03/11/21 14:00 [facility] (Rec: 03/11/21 14:14 [facility] [id number]) Current Condition History of Current Condition Onset Date 12/29/20 History of Current Condition pt is being seen s/p L patella fracture due to a ground level fall on 12/29/20 She has been in a knee imobilizer and was just released from this a couple of weeks ago. Nevaeh's chief complaint is knee weakness and she reports difficulty fully straightening her leg. SHe doesn't feel stable and has been using a 4 wheeled walker. SHe has low pain 2/10 unless she bumbs it or twists wrong. With stairs going up is okay but going down she needs assist. She has stairs in her house and there is railing on one side only Railing is on the left. She has been able to resume driving. She has been limited on walking and she feels aprehensive. PT-OP-C Subjective Start: 03/11/21 13:40 Freq: Status: Active Protocol: Document 05/29/21 12:15 SP (Rec: 05/29/21 13:04 SP [id number]) OP-PT Subjective Patient Comments Patient Comments Pt reported doesn't have anymore appts, scheduled for surgery Jun 05 for her L knee. PT-OP-D Balance Start: 03/12/21 10:38 Freq: Status: Active Protocol: Document 05/21/21 11:14 JG (Rec: 05/21/21 12:15 JG [id number]) Balance Tests Camacho Balance Test Camacho Balance Test Score 41/56 Camacho Impairment Rating 20 to 39% Impaired (Score 34- 44) PT-OP-F Manual Assessment Start: 03/11/21 13:40 Freq: Status: Active Protocol: Document 03/11/21 14:00 [facility] (Rec: 03/12/21 09:28 [facility] [id number]) Manual Assessments Soft Tissue Assessment Soft Tissue Mobility Assessment tightness of the left quad PT-OP-G Mobility & Gait Start: 03/11/21 13:40 Freq: Status: Active Protocol: Document 03/11/21 14:00 [facility] (Rec: 03/12/21 09:28 [facility] [id number]) OP Mobility Evaluation Transfers Floor Transfers pt feels unable at this time OP Gait Assessment Assistive Devices Assistive Device 4 Wheeled Walker Gait Deviations General Gait Pattern Antalgic,Decreased Stride Length,Flexed Trunk Factors Limiting Gait Function Factors Limiting Gait Function Decreased Strength,Pain Comments Gait Comments pain in the right SI with gait , flexed forward posture, and decreased strength of the left LE Stair Climbing Evaluation Evaluation Level of Assist On Stairs Contact Guard Assistance Devices Stair Climbing Assistive Devices Left Railing,Right Railing Technique/Endurance Stair Climbing Technique Step to Step PT-OP-J Posture/Palpation/Skin Start: 03/11/21 13:40 Freq: Status: Active Protocol: Document 03/11/21 14:00 [facility] (Rec: 03/12/21 09:28 [facility] [email or web address]) Posture Evaluation Comments Posture Comments pt is using a 4 wheeled walker for gait, she tends to be in a forward flexed posture and needs verbal cues to straighten up Palpation Assessment Location right SI joint Palpation Findings Tenderness Palpation Details tightness in the soft tissue surrounding the R SI joint PT-OP-K Range of Motion Start: 03/11/21 13:40 Freq: Status: Active Protocol: Document 03/20/21 13:49 SP (Rec: 03/20/21 15:31 SP [id number]) Knee Goniometric Range of Motion Knee Left Knee ROM WFL No Patient Position Supine Flexion Active (degrees) 137 Extension Passive (degrees) 2 Comments history of B knee replacement PT-OP-M Strength Start: 03/11/21 13:40 Freq: Status: Active Protocol: Document 03/11/21 14:00 [facility] (Rec: 03/12/21 09:28 [facility] [id number]) Knee Strength Knee Manual Muscle Testing Left Flexion (S2) 3 Fair Extension (L3) 2 Poor Comments pt is unable to perform a seated TKE with full knee extension, she is able to perform a quad set PT-OP-Q Treatments Start: 03/11/21 13:40 Freq: Status: Active Protocol: Document 05/29/21 12:15 SP (Rec: 05/29/21 13:04 SP [id number]) Cardio Equipment Bicycle (Upright) Duration (Minutes) 8 Resistance 8 Seat Position 8 Other 40 RPMs, full revolutions Gym Equipment Shuttle Balance red clips Details WBOS, stagger Reps/Duration 5 Comments EO Therapeutic Exercises Sitting Exercises HS curl Sitting Exercise Name reviewed HEP Side left Resistance Tb #2 Equipment Used 4WW Reps/Minutes x10 Comments cued slow eccentric return (at table next) sit<> stands Sitting Exercise Name feet //-Hep review Resistance AROM Equipment Used 18 chair with blue airex Reps/Minutes 5 reps in 30 sec, B knees miles 6th attempt Mod A and BUE WB on 4WW recov Comments cued to hinge at hips, deep lean, shifting weight forward Standing Exercises band walk Side bilateral Resistance Y TB Reps/Minutes 20 ft x2 Comments cued x2 for hips square forward to wall Gait Training Gait Activity 6MWT Device Used 4WW Level of Assistance SBA, CG Surface firm/ level carpet Distance/Duration 811 FT Treatment Focus toe clearance, foot stride length Comments cued tall posture closer to 4WW stair mgt Description ascend, descend 14 steps w/SPC and L railing Device Used TERMITE RENEWAL INSPECTOR on R (light contact) L railing Level of Assistance CGA Surface indoor lobby stairs Distance/Duration 14 steps Treatment Focus SPC management Comments w/step-to gait leading w/R ascending, L descending Neuro Re-Education Treatment Balance Activities Hurdles Surface firm Equipment rail x1 lap, TERMITE RENEWAL INSPECTOR min support x1 lap Comments 1. step through 6 hurdles fwd x2 2. sidestep over x 2 PT-OP-R Modalities Start: 03/11/21 13:40 Freq: Status: Active Protocol: Document 04/29/21 13:50 [facility] (Rec: 04/29/21 17:29 [facility] [id number]) Electric Stimulation Electric Stimulation quad set w/ Italian stim Body Location left medial and middle quad Duration (Minutes) 10 Intensity 35 Comments pt notes she could feel more intensity at a lower level today with one pad placed over her quad and one pad placed on the VMO PT-OP-T Assessment and Plan Start: 03/11/21 13:40 Freq: Status: Active Protocol: Document 05/29/21 12:15 SP (Rec: 05/29/21 13:04 SP [id number]) Physical Therapy Assessment Goals 8 Community Relations Manager Goal (LTG) Pt will perform 8 reps sit to stand with minimal to no UE support in 30 sec to improve functional transfers by 06/08/21 . 04/08/21: Pt performs 6 reps with minimal B UE support in mesh chair with arms today : pt ableto complete sit<> stand from 24 raised table without UE support with even wB BLE: R Le positioned more front and cues for wt shift forward. 04/22/21: no UE support: 24 table height: 9.5 reps in 30 sec. 22 table height: 9.25 reps 05/20/21: 5 reps in 30 sec 18 chair and airex, arms front. 05/21/21: 4 STS in 30 sec 18 chair and airex, w/UE armrest use. LTG Duration 8 weeks 7 Community Relations Manager Goal (LTG) Pt will perform WNLs on a standardized balance test to decrease fall risk by 06/08/21. 05/21/21: Pt scored 41/56 on Camacho Balance Test which places her at bottom of independent walking, but in the fall risk category. LTG Duration 8 weeks 6 Fpc Goal (LTG) Pt will ascend and descend 12 steps with left rail ascend and cane in opposite hand and mod I to improve home mobility by 06/08/21. 04/08/21: Pt ascend and descend 4 standard steps x4 with left rail and occ reaching for right and CGA at gait belt with occ step-to gait and then cues to keep both hands on the left rail ascend and right rail descend since this is her set-up at home. 04/22/21: progressing: pt able to ascend/descend 12 stairs BUE receiprocal stepping with Moderrate UE WB opn BUE HR, will progress 1 HR, SPC soon. 05/21/21: pt ascend/descend 14 steps w/L railing, SPC, CGA, and step-to gait 12/30/21: pt ascend/descend 14 steps w/L railing TERMITE RENEWAL INSPECTOR on R light light contact, CGA, and step-to gait LTG Duration 8 weeks 5 Community Relations Manager Goal (LTG) Pt will gait train at least 1200 feet with LRAD in 6 minutes to improve community ambulation by 06/08/21. 04/08/21: Pt gait trains 978 feet in 6 minutes with rollator. She presents with left hip with decreased flexion, decreased left knee flexion and extension with some guarding that pt reports is related to instability. 05/21/21: Pt amb 911.5 feet in 6 minutes. 05/29/21:pt ambualted 811ft in 6 min using 4WW, improved posture not need cuing, 1 L knee buckled butself recovery with hand brakes. LTG Duration 8 weeks Assessment Summary Assessment Pt completed 100 less feet during 6MWt using 4WW vs FWW last tx. 5 reps STS in 30 sec and attempted 6th when B knee gave and Shadia and self BUE on 4WW positioning in front for recovery support. Pt worked hard during ther ex: STS, bands walk, seated resisted HS curl. Required seated rest between activities. Pt able to maintain stagger stance, WBOS red clip shuttle balance 3 sec CGA, cued L soft knee to provide muscle facliitation and decrease tendancy to lock for stability. Physical Therapy Plan Frequency and Duration Frequency of Treatment 2x/Week Duration of Treatment 8 weeks Plan of Care Start Date 04/08/21 Plan of Care End Date 06/09/21 Therapeutic Interventions Therapeutic Interventions Aquatic Therapy,Balance Training,Canalithic Repositioning,Gait Training, Home Exercise Program,Joint Mobilizations,Manual Therapy, Neuromuscular Re-education, Patient/Caregiver Education, Self-Care/Home Management,Soft Tissue Mobilization,Taping, Therapeutic Activities, Therapeutic Exercises Modalities Cold Pack/Ice Massage,Electric Stimulation,Hot Packs Discharge Physical Therapy Discharge Reasons Patient Request Discharge Comments Pt having surgery Jun 05 Next Visit Focus/Plan Next Note Type Treatment Note Next Visit Plan DC from PT, pt having surgery L knee Jun 05. Pt will call back with cleared to return to PT.
--- NOTE | 2021-05-29 15:55 | PT.OPDS ---
Current Diagnoses Unspecified fracture of left patella, initial encounter for closed fracture (05/29/21) Presence of left artificial knee joint (05/29/21) Visit Care Team Role Provider Type Truong Saucedo MD Family Provider Physician Primary Care Provider Specialty: Family Practice Address: [address] [place], [address] Email: [email or web address] Brian Flynn MD Attending Provider Physician Referring Provider Specialty: Orthopedic Surgery Address: [address] [place] [address], [id number] Email: [email or web address] Visit Number Visit Number 20 Discharge Summary PT-OP-B Current Condition Start: 03/11/21 13:40 Freq: Status: Active Protocol: Document 03/11/21 14:00 [facility] (Rec: 03/11/21 14:14 AM[facility] [id number]) Current Condition History of Current Condition Onset Date 12/29/20 History of Current Condition pt is being seen s/p L patella fracture due to a ground level fall on 12/29/20 She has been in a knee imobilizer and was just released from this a couple of weeks ago. Nevaeh's chief complaint is knee weakness and she reports difficulty fully straightening her leg. SHe doesn't feel stable and has been using a 4 wheeled walker. SHe has low pain 2/10 unless she bumbs it or twists wrong. With stairs going up is okay but going down she needs assist. She has stairs in her house and there is railing on one side only Railing is on the left. She has been able to resume driving. She has been limited on walking and she feels aprehensive. PT-OP-C Subjective Start: 03/11/21 13:40 Freq: Status: Active Protocol: Document 05/29/21 12:15 SP (Rec: 05/29/21 13:04 SP [id number]) OP-PT Subjective Patient Comments Patient Comments Pt reported doesn't have anymore appts, scheduled for surgery Jun 05 for her L knee. PT-OP-D Balance Start: 03/12/21 10:38 Freq: Status: Active Protocol: Document 05/21/21 11:14 JG (Rec: 05/21/21 12:15 JG [id number]) Balance Tests Camacho Balance Test Camacho Balance Test Score 41/56 Camacho Impairment Rating 20 to 39% Impaired (Score 34- 44) PT-OP-F Manual Assessment Start: 03/11/21 13:40 Freq: Status: Active Protocol: Document 03/11/21 14:00 AM[facility] (Rec: 03/12/21 09:28 AM[facility] [id number]) Manual Assessments Soft Tissue Assessment Soft Tissue Mobility Assessment tightness of the left quad PT-OP-G Mobility & Gait Start: 03/11/21 13:40 Freq: Status: Active Protocol: Document 03/11/21 14:00 AM[facility] (Rec: 03/12/21 09:28 AMH [id number]) OP Mobility Evaluation Transfers Floor Transfers pt feels unable at this time OP Gait Assessment Assistive Devices Assistive Device 4 Wheeled Walker Gait Deviations General Gait Pattern Antalgic,Decreased Stride Length,Flexed Trunk Factors Limiting Gait Function Factors Limiting Gait Function Decreased Strength,Pain Comments Gait Comments pain in the right SI with gait , flexed forward posture, and decreased strength of the left LE Stair Climbing Evaluation Evaluation Level of Assist On Stairs Contact Guard Assistance Devices Stair Climbing Assistive Devices Left Railing,Right Railing Technique/Endurance Stair Climbing Technique Step to Step PT-OP-J Posture/Palpation/Skin Start: 03/11/21 13:40 Freq: Status: Active Protocol: Document 03/11/21 14:00 AMH (Rec: 03/12/21 09:28 AMH [email or web address]) Posture Evaluation Comments Posture Comments pt is using a 4 wheeled walker for gait, she tends to be in a forward flexed posture and needs verbal cues to straighten up Palpation Assessment Location right SI joint Palpation Findings Tenderness Palpation Details tightness in the soft tissue surrounding the R SI joint PT-OP-K Range of Motion Start: 03/11/21 13:40 Freq: Status: Active Protocol: Document 03/20/21 13:49 SP (Rec: 03/20/21 15:31 SP [id number]) Knee Goniometric Range of Motion Knee Left Knee ROM WFL No Patient Position Supine Flexion Active (degrees) 137 Extension Passive (degrees) 2 Comments history of B knee replacement PT-OP-M Strength Start: 03/11/21 13:40 Freq: Status: Active Protocol: Document 03/11/21 14:00 AMH (Rec: 03/12/21 09:28 AM[facility] [email or web address]) Knee Strength Knee Manual Muscle Testing Left Flexion (S2) 3 Fair Extension (L3) 2 Poor Comments pt is unable to perform a seated TKE with full knee extension, she is able to perform a quad set PT-OP-T Assessment and Plan Start: 03/11/21 13:40 Freq: Status: Active Protocol: Document 05/29/21 15:50 [facility] (Rec: 05/29/21 15:55 [facility] [id number]) Physical Therapy Assessment Goals 8 Peoplesoft Developer Goal (LTG) Pt will perform 8 reps sit to stand with minimal to no UE support in 30 sec to improve functional transfers by 06/08/21 . 04/08/21: Pt performs 6 reps with minimal B UE support in mesh chair with arms today : pt ableto complete sit<> stand from 24 raised table without UE support with even wB BLE: R Le positioned more front and cues for wt shift forward. 04/22/21: no UE support: 24 table height: 9.5 reps in 30 sec. 22 table height: 9.25 reps 05/20/21: 5 reps in 30 sec 18 chair and airex, arms front. 05/21/21: 4 STS in 30 sec 18 chair and airex, w/UE armrest use. LTG Duration 8 weeks 7 Assisted Goal (LTG) Pt will perform WNLs on a standardized balance test to decrease fall risk by 06/08/21. 05/21/21: Pt scored 41/56 on Camacho Balance Test which places her at bottom of independent walking, but in the fall risk category. LTG Duration 8 weeks 6 Assisted Goal (LTG) Pt will ascend and descend 12 steps with left rail ascend and cane in opposite hand and mod I to improve home mobility by 06/08/21. 04/08/21: Pt ascend and descend 4 standard steps x4 with left rail and occ reaching for right and CGA at gait belt with occ step-to gait and then cues to keep both hands on the left rail ascend and right rail descend since this is her set-up at home. 04/22/21: progressing: pt able to ascend/descend 12 stairs BUE receiprocal stepping with Moderrate UE WB opn BUE HR, will progress 1 HR, SPC soon. 05/21/21: pt ascend/descend 14 steps w/L railing, SPC, CGA, and step-to gait 05/29/21: pt ascend/descend 14 steps w/L railing SAP BOBJ DEVELOPER on R light light contact, CGA, and step-to gait LTG Duration 8 weeks 5 Peoplesoft Developer Goal (LTG) Pt will gait train at least 1200 feet with LRAD in 6 minutes to improve community ambulation by 06/08/21. 04/08/21: Pt gait trains 978 feet in 6 minutes with rollator. She presents with left hip with decreased flexion, decreased left knee flexion and extension with some guarding that pt reports is related to instability. 05/21/21: Pt amb 911.5 feet in 6 minutes. 05/29/21:pt ambualted 811ft in 6 min using 4WW, improved posture not need cuing, 1 L knee buckled butself recovery with hand brakes. LTG Duration 8 weeks Assessment Summary Assessment Pt has made progress with therapy but is preparing for sugery to improve stability on 06/05/21 so at this time pt is DC from PT. Pt will need new referral to return after surgrey Physical Therapy Plan Discharge Physical Therapy Discharge Reasons Patient Request Discharge Comments Pt having surgery Jun 05
== END 2021-08-13 13:22 ==
LOC: PHYS 12:15
PROVIDERS: Family Provider Family Medicine; PCP Family Medicine; Referring Provider Orthopaedic Surgery; Visit Provider Orthopaedic Surgery
DX: S82.002A Unspecified fracture of left patella, initial encounter for closed fracture (principal); Z96.652 Presence of left artificial knee joint
CPT/HCPCS: 97014; 97032; 97110; 97112; 97116; 97161; 97535; G0283

== ENCOUNTER → 2021-06-03 10:09 | Outpatient (CLI) | payer MEDICARE, OTHER, SELFPAY ==
[2020-04-10 17:30] VITALS: BMI 29.1
[2021-06-03 11:03] LABS: Add Manual Diff / Slide Review NO; Basophils Absolute Auto 0 /uL (0-100); Basophils Percent Auto 0.7 % (0-2); Eosinophils Absolute Auto 300 /uL (0-450); Eosinophils Percent Auto 4.9 % (2-4); Hematocrit 42.1 % (36-46); Lymphocytes Absolute Auto 1700 /uL (1100-4500); Lymphocytes Percent Auto 28.9 % (25-40); Mean Corpuscular HGB Conc 33.1 % (30-36); Mean Corpuscular Hemoglobin 29.8 PG (26-34); Mean Corpuscular Volume 89.8 fL (80-100); Monocytes Absolute Auto 800 /uL (0-900); Monocytes Percent Auto 12.9 % (3-14); Neutrophils Absolute Auto 3100 /uL (1500-7000); Neutrophils Percent Auto 52.6 % (50-75); Platelet Count 317 X10^3/uL (150-400); Red Blood Cell Count 4.69 X10^6/uL (4.0-5.2); Red Cell Distribution Width 14.7 % (11.6-14.8); White Blood Cell Count 5.9 X10^3/uL (4.5-11.0)
[2021-06-03 11:22] LABS: Carbon Dioxide 31 mmol/L (22-32); Chloride 100 mmol/L (98-107); HEMOLYSIS < 15 (0-50); Potassium 4.4 mmol/L (3.4-5.1); Sodium 136 mmol/L (137-145)
== END ==
PROVIDERS: Family Provider Family Medicine; PCP Family Medicine; Referring Provider Orthopaedic Surgery; Visit Provider Orthopaedic Surgery
DX: Z01.818 Encounter for other preprocedural examination (principal); Z01.812 Encounter for preprocedural laboratory examination
CPT/HCPCS: 36415; 80051; 85025

== ENCOUNTER → 2021-09-01 15:45 | Outpatient (CLI) | payer MEDICARE, OTHER, SELFPAY ==
[2020-04-10 17:30] VITALS: BMI 29.1
--- NOTE | 2021-09-01 | DI.MG.S_ITS ---
BILATERAL DIGITAL SCREENING MAMMOGRAM 3D/2D WITH CAD: 09/01/2021 CLINICAL: Routine screening. Comparison is made to exams dated: 05/23/2020 mammogram, 12/06/2018 mammogram - [facility], and 03/12/2017 mammogram - [facility] Current study was also evaluated with a Computer Aided Detection (CAD) system. There is a possible developing focal asymmetry in the left breast at 7 o'clock anterior depth. No other significant masses, calcifications, or other findings are seen in either breast. IMPRESSION: INCOMPLETE: NEEDS ADDITIONAL IMAGING EVALUATION The possible developing focal asymmetry in the left breast is indeterminate. Additional views with possible ultrasound are recommended. This exam was interpreted at Station ID: [id number]. NOTE: For mammograms, a report in lay terms will be sent to the patient. Approximately 15% of breast malignancies will not be visualized mammographically. In the management of a palpable breast mass, a negative mammogram must not discourage biopsy of a clinically suspicious lesion. Electronically Signed By: Juan Harmon M.D., jr/clarisse:09/01/2021 16:21:56 letter sent: Additional Imaging Needed ACR BI-RADS Category 0: Incomplete 3340F
== END ==
PROVIDERS: Family Provider Family Medicine; PCP Family Medicine; Referring Provider Family Medicine; Visit Provider Family Medicine
DX: Z12.31 Encounter for screening mammogram for malignant neoplasm of breast (principal)
CPT/HCPCS: 77063; 77067

== ENCOUNTER → 2021-10-10 12:16 | Outpatient (CLI) | payer MEDICARE, OTHER, SELFPAY ==
[2020-04-10 17:30] VITALS: BMI 29.1
--- NOTE | 2021-10-10 | DI.US.S_ITS ---
LIMITED ULTRASOUND OF LEFT BREAST: 10/10/2021 CLINICAL: Patient returns today to evaluate an asymmetry in the left breast. Comparison is made to exams dated: 10/10/2021 mammogram, 09/01/2021 mammogram, 05/23/2020 mammogram, 12/06/2018 mammogram - [facility], 03/12/2017 mammogram, and 03/09/2016 mammogram - [facility] Color flow and real-time ultrasound of the left breast 8 o'clock, and retroareolar regions were performed. Back scale images of the real-time examination were reviewed. There is a benign 0.7 cm x 0.6 cm x 0.6 cm oval cyst in the left breast at 8 o'clock anterior depth 2 cm from the nipple. This oval cyst is anechoic with posterior acoustic enhancement. This correlates with mammography findings. There are related rim calcifications. Color flow imaging demonstrates that there is no vascularity present. There also is a benign 2.2 cm x 1.6 cm x 1.2 cm oval simple cyst in the left breast central to the nipple in the retroareolar region. This oval simple cyst is anechoic. Color flow imaging demonstrates that there is no vascularity present. IMPRESSION: BENIGN There is no sonographic evidence of malignancy. The 0.7 cm cyst in the left breast at 8 o'clock anterior depth is benign. The 2.2 cm simple cyst in the left breast central to the nipple in the retroareolar region is benign. A 1 year screening mammogram is recommended. Exam findings were conveyed to the patient. This exam was interpreted at Station ID: [id number]. Electronically Signed By: Paxton Galsgow M.D. slc/:10/10/2021 13:29:20 letter sent: Normal Exam Ultrasound BI-RADS: 2 Benign
--- NOTE | 2021-10-10 | DI.MG.S_ITS ---
UNILATERAL LEFT DIGITAL DIAGNOSTIC MAMMOGRAM 3D/2D WITH ADDITIONAL VIEWS: 10/10/2021 CLINICAL: Additional evaluation requested from prior study. Comparison is made to exams dated: 09/01/2021 mammogram, 05/23/2020 mammogram, and 12/06/2018 mammogram - [facility]. The tissue of left breast is heterogeneously dense. This may lower the sensitivity of mammography. There is a 0.6 cm focal asymmetry in the left breast at 7 o'clock anterior depth. No other significant masses or calcifications are seen in the breast. IMPRESSION: INCOMPLETE: NEEDS ADDITIONAL IMAGING EVALUATION The 0.6 cm focal asymmetry in the left breast resembles a cyst and is indeterminate. A targeted ultrasound is recommended and will immediately follow. This exam was interpreted at Station ID: [id number]. NOTE: For mammograms, a report in lay terms will be sent to the patient. Approximately 15% of breast malignancies will not be visualized mammographically. In the management of a palpable breast mass, a negative mammogram must not discourage biopsy of a clinically suspicious lesion. Electronically Signed By: Paxton Glasgow M.D. slc/:10/10/2021 12:46:07 ACR BI-RADS Category 0: Incomplete 3340F
== END ==
PROVIDERS: Family Provider Family Medicine; PCP Family Medicine; Referring Provider Family Medicine; Visit Provider Family Medicine
DX: R92.8 Other abnormal and inconclusive findings on diagnostic imaging of breast (principal); N60.02 Solitary cyst of left breast
CPT/HCPCS: 76642; 77065; G0279

== ENCOUNTER → 2022-12-07 09:45 | Outpatient (CLI) | payer MEDICARE, OTHER, SELFPAY ==
[2020-04-10 17:30] VITALS: BMI 29.1
--- NOTE | 2022-12-07 | DI.MG.S_ITS ---
BILATERAL DIGITAL SCREENING MAMMOGRAM 3D/2D WITH CAD: 12/07/2022 CLINICAL: Routine screening. Comparison is made to exams dated: 10/10/2021 mammogram, 09/01/2021 mammogram, 05/23/2020 mammogram, and 12/06/2018 mammogram - [facility]. Both breasts are heterogeneously dense, which may obscure small masses (category c / 51-75% glandular tissue). Current study was also evaluated with a Computer Aided Detection (CAD) system. There are benign cysts in the left breast. There also are benign calcifications in both breasts. No significant masses, calcifications, or other findings are seen in either breast. There has been no significant interval change. IMPRESSION: BENIGN There is no mammographic evidence of malignancy. A 1 year screening mammogram is recommended. Based on the Tyrer Cuzick model (a risk assessment model) the patient's lifetime risk is 0.4% and her 10 year risk is 0.0%. According to the ACR, ACS, and NCCN guidelines, an annual breast MRI exam along with mammogram is recommended if the patient's lifetime risk is 20% or greater. This exam was interpreted at Station ID: [id number]. NOTE: For mammograms, a report in lay terms will be sent to the patient. Approximately 15% of breast malignancies will not be visualized mammographically. In the management of a palpable breast mass, a negative mammogram must not discourage biopsy of a clinically suspicious lesion. Electronically Signed By: Melvin santacruz/clarisse:12/07/2022 13:05:41 letter sent: Normal Exam ACR BI-RADS Category 2: Benign Finding(s) 3342F
== END ==
PROVIDERS: Family Provider Family Medicine; PCP Internal Medicine; Referring Provider Internal Medicine; Visit Provider Internal Medicine
DX: Z12.31 Encounter for screening mammogram for malignant neoplasm of breast (principal)
CPT/HCPCS: 77063; 77067

== ENCOUNTER → 2023-03-03 15:44 | Outpatient (CLI) | payer MEDICARE, OTHER, SELFPAY ==
[2020-04-10 17:30] VITALS: BMI 29.1
--- NOTE | 2023-03-03 | DI.RAD.S_ITS ---
PROCEDURE: XR LUMBAR SPINE 2-3V INDICATIONS: Low back pain TECHNIQUE: 3 views of the lumbar spine were acquired. COMPARISON: None. FINDINGS: Bones: 5 [id number] vertebrae are present. L4-L5 pedicle screw fixation. Hardware is intact. Mild scoliosis. Exaggerated lumbar spine lordosis. Grade 1 anterolisthesis of L4 on L5 and L5 on S1. Grade 1 retrolisthesis of L1 on L2 and L2 on L3. No vertebral body compression fractures. No suspicious bony lesions. Soft tissues: Overlying bowel gas pattern is normal. No suspicious soft tissue calcifications. IMPRESSION: Multilevel spondylolisthesis. L4-L5 pedicle screw fixation is intact. Dictated by: Paxton Glasgow M.D. on 03/03/2023 at 19:42 Approved by: Paxton Glasgow M.D. on 03/03/2023 at 19:47
[2023-03-03 17:54] LABS: BUN Creatinine Ratio 32.2 (6-22); Blood Urea Nitrogen 28 mg/dL (7-17); Calcium 9.7 mg/dL (8.4-10.2); Carbon Dioxide 26 mmol/L (22-32); Chloride 101 mmol/L (98-107); Estimated Glomerular Filt Rate > 60 mL/min (>60); Glucose 101 mg/dL (80-110); HEMOLYSIS 18 (0-50); Potassium 4.3 mmol/L (3.4-5.1); Sodium 136 mmol/L (137-145)
== END ==
PROVIDERS: Family Provider Family Medicine; PCP Internal Medicine; Referring Provider Internal Medicine; Visit Provider Internal Medicine
DX: M54.50 Low back pain, unspecified (principal); G89.29 Other chronic pain; I10 Essential (primary) hypertension; M43.16 Spondylolisthesis, lumbar region; Z98.890 Other specified postprocedural states
CPT/HCPCS: 36415; 72100; 80048

== ENCOUNTER 2023-07-23 10:30 | Outpatient (RCR) | payer MEDICARE, OTHER, SELFPAY ==
[2020-04-10 17:30] VITALS: BMI 29.1
--- NOTE | 2023-02-12 16:07 | PT.OIE ---
Current Diagnoses Unsteadiness on feet (02/12/23) Other abnormalities of gait and mobility (02/12/23) Weakness (02/12/23) Past Medical History (Last Reviewed 04/13/22 @ 14:31 by Spencer Tavarez MD) Acid reflux Depression HLD (hyperlipidemia) Hypothyroidism Osteoarthritis Toe infection (11/2019) Past Surgical History (Last Reviewed 04/13/22 @ 14:31 by Spencer Tavarez MD) History of arthroplasty of left knee (08/22/12) History of back surgery (2005) Hx of appendectomy Hx of bilateral cataract extraction Hx of eye surgery Hx of tonsillectomy Visit Care Team Role Provider Type Truong Saucedo MD Family Provider Physician Specialty: [facility] Practice Address: [address] [place] [address], [address] Email: [email or web address] WILLIAM Robert Attending Provider [employer] Director Primary Care Provider Referring Provider Specialty: [facility] Address: [address] [place] [address], [address] Email: [email or web address] Physical Therapy Initial Evaluation PT-OP-A Visit Information Start: 02/12/23 16:06 Freq: Status: Active Protocol: Document 02/12/23 16:07 AM (Rec: 02/12/23 17:26 AM [id number]) Out-Patient Physical Therapy Visit Information Visit Information Visit Type Initial Evaluation Visit Start Time 16:07 Visit Stop Time 16:47 Total Visit Minutes 40 Visit Number 1 Number of OB/GYN NURSE Visits 0 Evaluation Information Evaluation Date 02/12/23 PT-OP-B Current Condition Start: 02/12/23 16:06 Freq: Status: Active Protocol: Document 02/12/23 16:07 AM (Rec: 02/12/23 17:26 AM [id number]) Current Condition History of Current Condition Onset Date 2020 Current Complaints weakness, unsteadiness History of Current Condition Pt reports that she would like to improve her balance, strength and endurance. Pt with hx of bilateral TKA. Pt had a fall in Dec 2020 and fractured her L patella. She wore a knee immplizer and had surgery, though continues to have difficulty with knee. Pt reports that she locks knee in standing for stability. Pt reports that she walks with walking stick for community ambulation and no AD with household. Pt denies fall since her fall in 2020. Pt reports that she is able to ambulate 2-3 blocks before need to sit because of knee pain and fatigue. Pt reports that she recently got a recumbent bike and plans to use it daily for 20 min. Prior Treatments and Tests Prior PT for knees, back and balance issues Future Testing and Treatments Planned Pt will see her PCP next week and hoping to get low back x- rays Treatment Goals Patient/Caregiver Goals Improve endurance, strength and balance Prior Functional Status Baseline Function- ADL's Independent Baseline Function- Mobility Independent Current Functional Impairments (Reported) Functional Limitations- ADL's Pt reports that she is independent with ADLs. PT-OP-C Subjective Start: 02/12/23 16:06 Freq: Status: Active Protocol: Document 02/12/23 16:07 AM (Rec: 02/12/23 17:26 AM [id number]) OP-PT Pain Assessment Location low back pain Pain Location Details Low back Intensity 6 Description- Other 6/10 at the worst Frequency Constant Pain Aggravating Factors Standing,Sitting,Walking Pain Alleviating Factors Heat Other Pain Alleviating Factors Biofreeze, CBD oil PT-OP-D Balance Start: 02/12/23 16:06 Freq: Status: Active Protocol: Document 02/12/23 16:07 AM (Rec: 02/12/23 17:26 AM [id number]) Camacho Balance Assessment Evaluation Sitting to Standing Ability Independent w/Hands Unsupported Stance Safely- 2 minutes Sitting Unsupported, Feet on Floor Safely- 2 minutes Standing to Sitting Ability Safely, Minimal Hand Use Transfer Ability Safely, Hand Use Unsupported Stance- Eyes Closed Supervision, 10 seconds Unsupported Stance- Eyes Open Supervision to maintain Reaching Forward Standing Confidently, 10 inches Pick- Up Object From Floor Independent/Safe Look Behind Shoulder - Standing Supervision w/Turning Turning 360 Degrees Turns slowly, but safely Unsupported Stance, Alternating Feet on 2 Steps w/Minimum Assist Stair Unsupported Tandem Stance Assist to Step-15 seconds Unilateral Leg Stance Lifts Leg/Unable to Hold Total Score Camacho Total Score (out of 56 points) 38 Camacho Impairment Rating 20 to 39% Impaired (Score 34- 44) PT-OP-E Functional Tests Start: 02/12/23 16:06 Freq: Status: Active Protocol: Document 02/12/23 16:07 AM (Rec: 02/12/23 17:26 AM [id number]) Functional Tests 6 Minute Walk Test Distance 886 Device Used walking stick Five Times Sit to Stand Test Score 34.75 Comments Minor use of UE PT-OP-J Posture/Palpation/Skin Start: 02/12/23 16:06 Freq: Status: Active Protocol: Document 02/12/23 16:07 AM (Rec: 02/12/23 17:26 AM [id number]) Posture Evaluation Position Standing L-Spine Posture Flexed Pelvis Posture Anteriorly Tilted PT-OP-M Strength Start: 02/12/23 16:06 Freq: Status: Active Protocol: Document 02/12/23 16:07 AM (Rec: 02/12/23 17:26 AM [id number]) Hip Strength Hip Manual Muscle Testing Left Flexion (L2) 4- Good- Abduction 4- Good- Adduction 4- Good- Right Flexion (L2) 4- Good- Abduction 4- Good- Adduction 4- Good- Knee Strength Knee Manual Muscle Testing Left Flexion (S2) 4- Good- Extension (L3) 3+ Fair+ Right Flexion (S2) 4- Good- Extension (L3) 4- Good- Ankle/Foot Strength Ankle and Foot Manual Muscle Testing Left Dorsiflexion (L4) 4- Good- Plantarflexion (S1) 4- Good- Right Dorsiflexion (L4) 4- Good- Plantarflexion (S1) 4- Good- PT-OP-Q Treatments Start: 02/12/23 16:06 Freq: Status: Active Protocol: Document 02/12/23 16:07 AM (Rec: 02/12/23 17:26 AM [id number]) Self-Care/Home Management Treatment Education Patient Education Home Exercise Program Caregiver Education Discussed increasing use of recumbent bike to 20 min daily and STS squats 2x10 reps 2x/ day PT-OP-T Assessment and Plan Start: 02/12/23 16:06 Freq: Status: Active Protocol: Document 02/12/23 16:07 AM (Rec: 02/12/23 17:26 AM [id number]) Physical Therapy Assessment Rehab Potential Rehabilitation Potential Good Evaluation Complexity Number of Personal Factors/Comorbidities 1-2 Number of Body Systems Impaired 1-2 Clinical Presentation at Evaluation Stable Impairments Impairments Activity Tolerance,Balance, Coordination,Functional Activities,Functional Mobility ,Gait,Pain,Posture,ROM,Soft Tissue Mobility,Strength, Transfers Goals Tandem stance Impairment Balance Impairment Pt able to hold tandem stance for 10 seconds, requiring use of hands to achieve position. Short Term Goal (STG) Pt able to hold tandem stance bilaterally for 16 seconds. STG Duration 03/04/23 Retirement Goal (LTG) Pt able to hold tandem stance for 25 seconds bilaterally. LTG Duration 03/26/23 HEP Impairment Pt with limited HEP Retirement Goal (LTG) Pt is independent with HEP LTG Duration 03/26/23 Balance Impairment Camacho balance Impairment Camacho balance score of 38/56 Short Term Goal (STG) Pt with improved balance with improved Camacho balance score of 43/56. STG Duration 03/04/23 Retirement Goal (LTG) Pt with improved balance with improved Camacho balance score of 48/56 LTG Duration 03/26/23 Strength Impairment Strength Impairment Pt able to complete 5 STS squats in 34.7 seconds with minimal use of unilateral UE at chair that is 20 inches in height. Short Term Goal (STG) Pt able to complete 5 STS squats in 25 seconds without use of UE at chair that is 20 inches in height. STG Duration 03/05/23 Retirement Goal (LTG) Pt able to complete 5 STS squats in 18 seconds without use of UE at chair that is 20 inches in height. 6MWT Impairment Endurance Impairment Pt able to ambulate 886 ft with unilateral trekking pole in 6 minutes. Short Term Goal (STG) Pt able to ambulate 1000 ft with unilateral trekking pole in 6 minutes. STG Duration 03/05/23 Retirement Goal (LTG) Pt able to ambulate 1150 ft with unilateral trekking pole in 6 minutes. LTG Duration 03/26/23 Assessment Summary Assessment Nevaeh Rose presents to PT to addres balance, strength and endurance impairments. Pt demonstrates balance deficts with Camacho balance score of 38/ 56. Pt with difficulty with sit-stand transfers without use of hands. Pt require Min use of 1 UE with STS from chair that is 20 inches in height. Pt demonstrated LOB with weight shifting with turning to look behind her. Pt demonstrates trunk flexion in standing, likely contributing to LBP. Pt demonstrates L knee dysfunction and quad strength impairment from prior patellar injury. Pt with reported fatigue following 6MWT today. Pt would benefit from continued PT to progress strength, balance and endurance to decrease fall risk and improve tolerance to functional tasks. Physical Therapy Plan Frequency and Duration Frequency of Treatment 2x/Week Duration of treatment (weeks) 6 Plan of Care Start Date 02/12/23 Plan of Care End Date 03/26/23 Therapeutic Interventions Therapeutic Interventions Balance Training,Coordination Training,Gait Training,Home Exercise Program,Manual Therapy,Neuromuscular Re- education,Patient/Caregiver Education,Self-Care/Home Management,Soft Tissue Mobilization,Taping, Therapeutic Activities, Therapeutic Exercises Modalities Cold Pack/Ice Massage,Hot Packs Next Visit Focus/Plan Next Note Type Treatment Note Next Visit Plan progress strength, endurance and balance as tolerated
--- NOTE | 2023-02-12 16:07 | PT.OPPOC ---
Physical, Occupational & Speech Therapy At [facility] Current Diagnoses Unsteadiness on feet (02/12/23) Other abnormalities of gait and mobility (02/12/23) Weakness (02/12/23) Visit Care Team Role Provider Type Truong Saucedo MD Family Provider Physician Specialty: [facility] Address: [address] [place] [address], [id number] Email: [email or web address] WILLIAM Robert Attending Provider Advanced Feed Adviser Primary Care Provider Referring Provider Specialty: [facility] Address: [address] [place] [address], [id number] Email: [email or web address] Plan Of Care PT-OP-T Assessment and Plan Start: 02/12/23 16:06 Freq: Status: Active Protocol: Document 02/12/23 16:07 AM (Rec: 02/12/23 17:26 AM [id number]) Physical Therapy Assessment Rehab Potential Rehabilitation Potential Good Evaluation Complexity Number of Personal Factors/Comorbidities 1-2 Number of Body Systems Impaired 1-2 Clinical Presentation at Evaluation Stable Impairments Impairments Activity Tolerance,Balance, Coordination,Functional Activities,Functional Mobility ,Gait,Pain,Posture,ROM,Soft Tissue Mobility,Strength, Transfers Goals Tandem stance Impairment Balance Impairment Pt able to hold tandem stance for 10 seconds, requiring use of hands to achieve position. Short Term Goal (STG) Pt able to hold tandem stance bilaterally for 16 seconds. STG Duration 03/04/23 Detention Goal (LTG) Pt able to hold tandem stance for 25 seconds bilaterally. LTG Duration 03/26/23 HEP Impairment Pt with limited HEP Vitamin Manager Goal (LTG) Pt is independent with HEP LTG Duration 03/26/23 Balance Impairment Camacho balance Impairment Camacho balance score of 38/56 Short Term Goal (STG) Pt with improved balance with improved Camacho balance score of 43/56. STG Duration 03/04/23 Detention Goal (LTG) Pt with improved balance with improved Camacho balance score of 48/56 LTG Duration 03/26/23 Strength Impairment Strength Impairment Pt able to complete 5 STS squats in 34.7 seconds with minimal use of unilateral UE at chair that is 20 inches in height. Short Term Goal (STG) Pt able to complete 5 STS squats in 25 seconds without use of UE at chair that is 20 inches in height. STG Duration 03/05/23 Vitamin Manager Goal (LTG) Pt able to complete 5 STS squats in 18 seconds without use of UE at chair that is 20 inches in height. 6MWT Impairment Endurance Impairment Pt able to ambulate 886 ft with unilateral trekking pole in 6 minutes. Short Term Goal (STG) Pt able to ambulate 1000 ft with unilateral trekking pole in 6 minutes. STG Duration 03/05/23 Detention Goal (LTG) Pt able to ambulate 1150 ft with unilateral trekking pole in 6 minutes. LTG Duration 03/26/23 Assessment Summary Assessment Nevaeh Rose presents to PT to addres balance, strength and endurance impairments. Pt demonstrates balance deficts with Camacho balance score of 38/ 56. Pt with difficulty with sit-stand transfers without use of hands. Pt require Min use of 1 UE with STS from chair that is 20 inches in height. Pt demonstrated LOB with weight shifting with turning to look behind her. Pt demonstrates trunk flexion in standing, likely contributing to LBP. Pt demonstrates L knee dysfunction and quad strength impairment from prior patellar injury. Pt with reported fatigue following 6MWT today. Pt would benefit from continued PT to progress strength, balance and endurance to decrease fall risk and improve tolerance to functional tasks. Physical Therapy Plan Frequency and Duration Frequency of Treatment 2x/Week Duration of treatment (weeks) 6 Plan of Care Start Date 02/12/23 Plan of Care End Date 03/26/23 Therapeutic Interventions Therapeutic Interventions Balance Training,Coordination Training,Gait Training,Home Exercise Program,Manual Therapy,Neuromuscular Re- education,Patient/Caregiver Education,Self-Care/Home Management,Soft Tissue Mobilization,Taping, Therapeutic Activities, Therapeutic Exercises Modalities Cold Pack/Ice Massage,Hot Packs Next Visit Focus/Plan Next Note Type Treatment Note Next Visit Plan progress strength, endurance and balance as tolerated Plan of Care Dates Plan of Care Start Date 02/12/23 Plan of Care End Date 03/26/23 Electronically Signed by: Lila Cadena, PT 02/12/23 0485 If you are in agreement with this Plan of Care, please return a signed and dated copy. I have reviewed this Plan of Care and certify that the skilled therapy services above are required to meet the patient?s needs. Physician Signature Date Printed Name and Credentials Clinical Instructor Signature Printed Name and Credentials
--- NOTE | 2023-02-18 16:02 | PT.OTN ---
Current Diagnoses Unsteadiness on feet (02/18/23) Other abnormalities of gait and mobility (02/18/23) Weakness (02/18/23) Physical Therapy Treatment Note PT-OP-A Visit Information Start: 02/12/23 16:06 Freq: Status: Active Protocol: Document 02/18/23 16:02 AM (Rec: 02/18/23 16:58 AM [id number]) Out-Patient Physical Therapy Visit Information Visit Information Visit Type Treatment Note Visit Start Time 16:03 Visit Stop Time 16:49 Total Visit Minutes 46 Visit Number 2 PT-OP-B Current Condition Start: 02/12/23 16:06 Freq: Status: Active Protocol: Document 02/18/23 16:02 AM (Rec: 02/18/23 16:58 AM [id number]) Current Condition History of Current Condition Onset Date 2020 Current Complaints weakness, unsteadiness History of Current Condition Pt reports that she would like to improve her balance, strength and endurance. Pt with hx of bilateral TKA. Pt had a fall in Dec 2020 and fractured her L patella. She wore a knee immplizer and had surgery, though continues to have difficulty with knee. Pt reports that she locks knee in standing for stability. Pt reports that she walks with walking stick for community ambulation and no AD with household. Pt denies fall since her fall in 2020. Pt reports that she is able to ambulate 2-3 blocks before need to sit because of knee pain and fatigue. Pt reports that she recently got a recumbent bike and plans to use it daily for 20 min. Prior Treatments and Tests Prior PT for knees, back and balance issues Future Testing and Treatments Planned Pt will see her PCP next week and hoping to get low back x- rays PT-OP-C Subjective Start: 02/12/23 16:06 Freq: Status: Active Protocol: Document 02/18/23 16:02 AM (Rec: 02/18/23 16:58 AM [id number]) OP-PT Subjective Patient Comments Patient Comments Pt reports that she is feeling tired today. Pt reports that she slept more today than usual. She thinks that her sinuses are giving her trouble . PT-OP-D Balance Start: 02/12/23 16:06 Freq: Status: Active Protocol: Document 02/12/23 16:07 AM (Rec: 02/12/23 17:26 AM [id number]) Camacho Balance Assessment Evaluation Sitting to Standing Ability Independent w/Hands Unsupported Stance Safely- 2 minutes Sitting Unsupported, Feet on Floor Safely- 2 minutes Standing to Sitting Ability Safely, Minimal Hand Use Transfer Ability Safely, Hand Use Unsupported Stance- Eyes Closed Supervision, 10 seconds Unsupported Stance- Eyes Open Supervision to maintain Reaching Forward Standing Confidently, 10 inches Pick- Up Object From Floor Independent/Safe Look Behind Shoulder - Standing Supervision w/Turning Turning 360 Degrees Turns slowly, but safely Unsupported Stance, Alternating Feet on 2 Steps w/Minimum Assist Stair Unsupported Tandem Stance Assist to Step-15 seconds Unilateral Leg Stance Lifts Leg/Unable to Hold Total Score Camacho Total Score (out of 56 points) 38 Camacho Impairment Rating 20 to 39% Impaired (Score 34- 44) PT-OP-E Functional Tests Start: 02/12/23 16:06 Freq: Status: Active Protocol: Document 02/12/23 16:07 AM (Rec: 02/12/23 17:26 AM [id number]) Functional Tests 6 Minute Walk Test Distance 886 Device Used walking stick Five Times Sit to Stand Test Score 34.75 Comments Minor use of UE PT-OP-J Posture/Palpation/Skin Start: 02/12/23 16:06 Freq: Status: Active Protocol: Document 02/12/23 16:07 AM (Rec: 02/12/23 17:26 AM [id number]) Posture Evaluation Position Standing L-Spine Posture Flexed Pelvis Posture Anteriorly Tilted PT-OP-M Strength Start: 02/12/23 16:06 Freq: Status: Active Protocol: Document 02/12/23 16:07 AM (Rec: 02/12/23 17:26 AM [id number]) Hip Strength Hip Manual Muscle Testing Left Flexion (L2) 4- Good- Abduction 4- Good- Adduction 4- Good- Right Flexion (L2) 4- Good- Abduction 4- Good- Adduction 4- Good- Knee Strength Knee Manual Muscle Testing Left Flexion (S2) 4- Good- Extension (L3) 3+ Fair+ Right Flexion (S2) 4- Good- Extension (L3) 4- Good- Ankle/Foot Strength Ankle and Foot Manual Muscle Testing Left Dorsiflexion (L4) 4- Good- Plantarflexion (S1) 4- Good- Right Dorsiflexion (L4) 4- Good- Plantarflexion (S1) 4- Good- PT-OP-Q Treatments Start: 02/12/23 16:06 Freq: Status: Active Protocol: Document 02/18/23 16:02 AM (Rec: 02/18/23 16:58 AM [id number]) Cardio Equipment Recumbent Stepper (Sci-Fit) Duration (Minutes) 5 Resistance 6 Seat Position 15 Gym Equipment Shuttle Recovery Unilateral Squats Resistance 50# (2 navy) Shuttle Recovery Platform Stable Reps/Time x1 min ea LE Bilateral Squats Resistance 75# (3 navy) Reps/Time x1 min Therapeutic Exercises Supine Exercises Hip flexor stretch Supine Exercise Name Modified zay stretch Side bilateral Reps/Minutes x30 sec Comments manual assist with LE off edge of table, other knee bent in hooklying Bridge Supine Exercise Name Bridge Equipment Used LE on green swissball Reps/Minutes x10 SAQ Supine Exercise Name SAQ Side left Reps/Minutes x10 SKTC Supine Exercise Name SKTC Side bilateral Reps/Minutes 2x30 sec Standing Exercises Calf raise Standing Exercise Name Calf raise Equipment Used // bars Standing TKE Standing Exercise Name Standing TKE Resistance ball behind knee at wall Equipment Used blue ball Reps/Minutes 10x5 sec Standing posture back to wall Standing Exercise Name Back to wall posture Reps/Minutes x1 min Resisted side step Standing Exercise Name Resisted side step Resistance OTB Equipment Used // bars 3-way hip Standing Exercise Name 3-way hip strengthening Resistance orange TB Equipment Used // bars PT-OP-T Assessment and Plan Start: 02/12/23 16:06 Freq: Status: Active Protocol: Document 02/18/23 16:02 AM (Rec: 02/18/23 16:58 AM [id number]) Physical Therapy Assessment Impairments Impairments Activity Tolerance,Balance, Coordination,Functional Activities,Functional Mobility ,Gait,Pain,Posture,ROM,Soft Tissue Mobility,Strength, Transfers Goals Tandem stance Impairment Balance Impairment Pt able to hold tandem stance for 10 seconds, requiring use of hands to achieve position. Short Term Goal (STG) Pt able to hold tandem stance bilaterally for 16 seconds. STG Duration 03/04/23 Nursing Home Goal (LTG) Pt able to hold tandem stance for 25 seconds bilaterally. LTG Duration 03/26/23 HEP Impairment Pt with limited HEP Dental Insurance Coordinator Goal (LTG) Pt is independent with HEP LTG Duration 03/26/23 Balance Impairment Camacho balance Impairment Camacho balance score of 38/56 Short Term Goal (STG) Pt with improved balance with improved Camacho balance score of 43/56. STG Duration 03/04/23 Dental Insurance Coordinator Goal (LTG) Pt with improved balance with improved Camacho balance score of 48/56 LTG Duration 03/26/23 Strength Impairment Strength Impairment Pt able to complete 5 STS squats in 34.7 seconds with minimal use of unilateral UE at chair that is 20 inches in height. Short Term Goal (STG) Pt able to complete 5 STS squats in 25 seconds without use of UE at chair that is 20 inches in height. STG Duration 03/05/23 Dental Insurance Coordinator Goal (LTG) Pt able to complete 5 STS squats in 18 seconds without use of UE at chair that is 20 inches in height. 6MWT Impairment Endurance Impairment Pt able to ambulate 886 ft with unilateral trekking pole in 6 minutes. Short Term Goal (STG) Pt able to ambulate 1000 ft with unilateral trekking pole in 6 minutes. STG Duration 03/05/23 Dental Insurance Coordinator Goal (LTG) Pt able to ambulate 1150 ft with unilateral trekking pole in 6 minutes. LTG Duration 03/26/23 Assessment Summary Assessment Pt tolerated session well today with rest breaks as needed. Pt with limitations at hip flexors bilaterally, likely contributing to trunk flexion in standing. Pt requires cueing for posture throughout session. Pt would benefit from continued PT to progress strength, endurance and balance as tolerated to improve tolerance to functional tasks. Physical Therapy Plan Frequency and Duration Frequency of Treatment 2x/Week Duration of treatment (weeks) 6 Plan of Care Start Date 02/12/23 Plan of Care End Date 03/26/23 Therapeutic Interventions Therapeutic Interventions Balance Training,Coordination Training,Gait Training,Home Exercise Program,Manual Therapy,Neuromuscular Re- education,Patient/Caregiver Education,Self-Care/Home Management,Soft Tissue Mobilization,Taping, Therapeutic Activities, Therapeutic Exercises Modalities Cold Pack/Ice Massage,Hot Packs Next Visit Focus/Plan Next Note Type Treatment Note Next Visit Plan progress strength, endurance and balance as tolerated
--- NOTE | 2023-02-23 14:19 | PT.OTN ---
Current Diagnoses Unsteadiness on feet (02/23/23) Other abnormalities of gait and mobility (02/23/23) Weakness (02/23/23) Physical Therapy Treatment Note PT-OP-A Visit Information Start: 02/12/23 16:06 Freq: Status: Active Protocol: Document 02/23/23 14:19 AM (Rec: 02/23/23 15:14 AM [id number]) Out-Patient Physical Therapy Visit Information Visit Information Visit Type Treatment Note Visit Start Time 14:19 Visit Stop Time 15:01 Total Visit Minutes 42 Visit Number 3 PT-OP-B Current Condition Start: 02/12/23 16:06 Freq: Status: Active Protocol: Document 02/23/23 14:19 AM (Rec: 02/23/23 15:14 AM [id number]) Current Condition History of Current Condition Onset Date 2020 Current Complaints weakness, unsteadiness History of Current Condition Pt reports that she would like to improve her balance, strength and endurance. Pt with hx of bilateral TKA. Pt had a fall in Dec 2020 and fractured her L patella. She wore a knee immplizer and had surgery, though continues to have difficulty with knee. Pt reports that she locks knee in standing for stability. Pt reports that she walks with walking stick for community ambulation and no AD with household. Pt denies fall since her fall in 2020. Pt reports that she is able to ambulate 2-3 blocks before need to sit because of knee pain and fatigue. Pt reports that she recently got a recumbent bike and plans to use it daily for 20 min. Prior Treatments and Tests Prior PT for knees, back and balance issues Future Testing and Treatments Planned Pt will see her PCP next week and hoping to get low back x- rays PT-OP-C Subjective Start: 02/12/23 16:06 Freq: Status: Active Protocol: Document 02/23/23 14:19 AM (Rec: 02/23/23 15:14 AM [id number]) OP-PT Subjective Patient Comments Patient Comments Pt reports that she has had a very busy day with appointments. Pt reports that she realized today that there was some confusion with her medications. She went to her PCP to correct this. Pt reports that she has had difficulty with sleep recently . PT-OP-D Balance Start: 02/12/23 16:06 Freq: Status: Active Protocol: Document 02/12/23 16:07 AM (Rec: 02/12/23 17:26 AM [id number]) Camacho Balance Assessment Evaluation Sitting to Standing Ability Independent w/Hands Unsupported Stance Safely- 2 minutes Sitting Unsupported, Feet on Floor Safely- 2 minutes Standing to Sitting Ability Safely, Minimal Hand Use Transfer Ability Safely, Hand Use Unsupported Stance- Eyes Closed Supervision, 10 seconds Unsupported Stance- Eyes Open Supervision to maintain Reaching Forward Standing Confidently, 10 inches Pick- Up Object From Floor Independent/Safe Look Behind Shoulder - Standing Supervision w/Turning Turning 360 Degrees Turns slowly, but safely Unsupported Stance, Alternating Feet on 2 Steps w/Minimum Assist Stair Unsupported Tandem Stance Assist to Step-15 seconds Unilateral Leg Stance Lifts Leg/Unable to Hold Total Score Camacho Total Score (out of 56 points) 38 Camacho Impairment Rating 20 to 39% Impaired (Score 34- 44) PT-OP-E Functional Tests Start: 02/12/23 16:06 Freq: Status: Active Protocol: Document 02/12/23 16:07 AM (Rec: 02/12/23 17:26 AM [id number]) Functional Tests 6 Minute Walk Test Distance 886 Device Used walking stick Five Times Sit to Stand Test Score 34.75 Comments Minor use of UE PT-OP-J Posture/Palpation/Skin Start: 02/12/23 16:06 Freq: Status: Active Protocol: Document 02/12/23 16:07 AM (Rec: 02/12/23 17:26 AM [id number]) Posture Evaluation Position Standing L-Spine Posture Flexed Pelvis Posture Anteriorly Tilted PT-OP-M Strength Start: 02/12/23 16:06 Freq: Status: Active Protocol: Document 02/12/23 16:07 AM (Rec: 02/12/23 17:26 AM [id number]) Hip Strength Hip Manual Muscle Testing Left Flexion (L2) 4- Good- Abduction 4- Good- Adduction 4- Good- Right Flexion (L2) 4- Good- Abduction 4- Good- Adduction 4- Good- Knee Strength Knee Manual Muscle Testing Left Flexion (S2) 4- Good- Extension (L3) 3+ Fair+ Right Flexion (S2) 4- Good- Extension (L3) 4- Good- Ankle/Foot Strength Ankle and Foot Manual Muscle Testing Left Dorsiflexion (L4) 4- Good- Plantarflexion (S1) 4- Good- Right Dorsiflexion (L4) 4- Good- Plantarflexion (S1) 4- Good- PT-OP-Q Treatments Start: 02/12/23 16:06 Freq: Status: Active Protocol: Document 02/23/23 14:19 AM (Rec: 02/23/23 15:14 AM [id number]) Cardio Equipment Recumbent Stepper (Sci-Fit) Duration (Minutes) 5 Resistance 6 Seat Position 15 Therapeutic Exercises Standing Exercises step-up Standing Exercise Name Step up Side left Equipment Used // bars, 4 in step Reps/Minutes 2x10 Comments Bam UE support Calf raise Standing Exercise Name Calf raise Equipment Used // bars Standing TKE Standing Exercise Name Standing TKE Resistance blue band Equipment Used Blue band Reps/Minutes 10x5 sec Resisted side step Standing Exercise Name Resisted side step Resistance [place] TB Equipment Used // bars 3-way hip Standing Exercise Name 3-way hip strengthening Resistance [place] TB Equipment Used // bars Neuro Re-Education Treatment Balance Activities Dynamic balance Details head turns up/down side to side Comments Walking without AD with CGA with gait pattern Semi tandem Details Semi tandem on foam Reps/Duration x30 sec ea Comments With and without head turns Step taps Details Step taps Surface stable Equipment 4 in step in // bars Reps/Duration x10 ea LE Comments without UE support with CGA PT-OP-T Assessment and Plan Start: 02/12/23 16:06 Freq: Status: Active Protocol: Document 02/23/23 14:19 AM (Rec: 02/23/23 15:14 AM [id number]) Physical Therapy Assessment Impairments Impairments Activity Tolerance,Balance, Coordination,Functional Activities,Functional Mobility ,Gait,Pain,Posture,ROM,Soft Tissue Mobility,Strength, Transfers Goals Tandem stance Impairment Balance Impairment Pt able to hold tandem stance for 10 seconds, requiring use of hands to achieve position. Short Term Goal (STG) Pt able to hold tandem stance bilaterally for 16 seconds. STG Duration 03/04/23 Care Home Goal (LTG) Pt able to hold tandem stance for 25 seconds bilaterally. LTG Duration 03/26/23 HEP Impairment Pt with limited HEP Media Analytics Manager Goal (LTG) Pt is independent with HEP LTG Duration 03/26/23 Balance Impairment Camacho balance Impairment Camacho balance score of 38/56 Short Term Goal (STG) Pt with improved balance with improved Camacho balance score of 43/56. STG Duration 03/04/23 Care Home Goal (LTG) Pt with improved balance with improved Camacho balance score of 48/56 LTG Duration 03/26/23 Strength Impairment Strength Impairment Pt able to complete 5 STS squats in 34.7 seconds with minimal use of unilateral UE at chair that is 20 inches in height. Short Term Goal (STG) Pt able to complete 5 STS squats in 25 seconds without use of UE at chair that is 20 inches in height. STG Duration 03/05/23 Care Home Goal (LTG) Pt able to complete 5 STS squats in 18 seconds without use of UE at chair that is 20 inches in height. 6MWT Impairment Endurance Impairment Pt able to ambulate 886 ft with unilateral trekking pole in 6 minutes. Short Term Goal (STG) Pt able to ambulate 1000 ft with unilateral trekking pole in 6 minutes. STG Duration 03/05/23 Media Analytics Manager Goal (LTG) Pt able to ambulate 1150 ft with unilateral trekking pole in 6 minutes. LTG Duration 03/26/23 Assessment Summary Assessment Pt tolerated PRE well today. Pt demonstrated 1 LOB during gait activity with head turns, requiring PT assist to correct. Pt requires cueing for posture throughout tx session. Pt demonstrates difficulty with L knee control with CKC activities, demonstrating knee hyperextension/locking. Pt would benefit from continued PT to progress LE strength and mobility to decrease fall risk and improve tolerance to functional activities.
--- NOTE | 2023-02-25 12:15 | PT.OTN ---
Current Diagnoses Unsteadiness on feet (02/25/23) Other abnormalities of gait and mobility (02/25/23) Weakness (02/25/23) Physical Therapy Treatment Note PT-OP-A Visit Information Start: 02/12/23 16:06 Freq: Status: Active Protocol: Document 02/23/23 14:19 AM (Rec: 02/23/23 15:14 AM [id number]) Out-Patient Physical Therapy Visit Information Visit Information Visit Type Treatment Note Visit Start Time 14:19 Visit Stop Time 15:01 Total Visit Minutes 42 Visit Number 3 PT-OP-B Current Condition Start: 02/12/23 16:06 Freq: Status: Active Protocol: Document 02/23/23 14:19 AM (Rec: 02/23/23 15:14 AM [id number]) Current Condition History of Current Condition Onset Date 2020 Current Complaints weakness, unsteadiness History of Current Condition Pt reports that she would like to improve her balance, strength and endurance. Pt with hx of bilateral TKA. Pt had a fall in Dec 2020 and fractured her L patella. She wore a knee immplizer and had surgery, though continues to have difficulty with knee. Pt reports that she locks knee in standing for stability. Pt reports that she walks with walking stick for community ambulation and no AD with household. Pt denies fall since her fall in 2020. Pt reports that she is able to ambulate 2-3 blocks before need to sit because of knee pain and fatigue. Pt reports that she recently got a recumbent bike and plans to use it daily for 20 min. Prior Treatments and Tests Prior PT for knees, back and balance issues Future Testing and Treatments Planned Pt will see her PCP next week and hoping to get low back x- rays PT-OP-C Subjective Start: 02/12/23 16:06 Freq: Status: Active Protocol: Document 02/23/23 14:19 AM (Rec: 02/23/23 15:14 AM [id number]) OP-PT Subjective Patient Comments Patient Comments Pt reports that she has had a very busy day with appointments. Pt reports that she realized today that there was some confusion with her medications. She went to her PCP to correct this. Pt reports that she has had difficulty with sleep recently . PT-OP-D Balance Start: 02/12/23 16:06 Freq: Status: Active Protocol: Document 02/12/23 16:07 AM (Rec: 02/12/23 17:26 AM [id number]) Camacho Balance Assessment Evaluation Sitting to Standing Ability Independent w/Hands Unsupported Stance Safely- 2 minutes Sitting Unsupported, Feet on Floor Safely- 2 minutes Standing to Sitting Ability Safely, Minimal Hand Use Transfer Ability Safely, Hand Use Unsupported Stance- Eyes Closed Supervision, 10 seconds Unsupported Stance- Eyes Open Supervision to maintain Reaching Forward Standing Confidently, 10 inches Pick- Up Object From Floor Independent/Safe Look Behind Shoulder - Standing Supervision w/Turning Turning 360 Degrees Turns slowly, but safely Unsupported Stance, Alternating Feet on 2 Steps w/Minimum Assist Stair Unsupported Tandem Stance Assist to Step-15 seconds Unilateral Leg Stance Lifts Leg/Unable to Hold Total Score Camacho Total Score (out of 56 points) 38 Camacho Impairment Rating 20 to 39% Impaired (Score 34- 44) PT-OP-E Functional Tests Start: 02/12/23 16:06 Freq: Status: Active Protocol: Document 02/12/23 16:07 AM (Rec: 02/12/23 17:26 AM [id number]) Functional Tests 6 Minute Walk Test Distance 886 Device Used walking stick Five Times Sit to Stand Test Score 34.75 Comments Minor use of UE PT-OP-J Posture/Palpation/Skin Start: 02/12/23 16:06 Freq: Status: Active Protocol: Document 02/12/23 16:07 AM (Rec: 02/12/23 17:26 AM [id number]) Posture Evaluation Position Standing L-Spine Posture Flexed Pelvis Posture Anteriorly Tilted PT-OP-M Strength Start: 02/12/23 16:06 Freq: Status: Active Protocol: Document 02/12/23 16:07 AM (Rec: 02/12/23 17:26 AM [id number]) Hip Strength Hip Manual Muscle Testing Left Flexion (L2) 4- Good- Abduction 4- Good- Adduction 4- Good- Right Flexion (L2) 4- Good- Abduction 4- Good- Adduction 4- Good- Knee Strength Knee Manual Muscle Testing Left Flexion (S2) 4- Good- Extension (L3) 3+ Fair+ Right Flexion (S2) 4- Good- Extension (L3) 4- Good- Ankle/Foot Strength Ankle and Foot Manual Muscle Testing Left Dorsiflexion (L4) 4- Good- Plantarflexion (S1) 4- Good- Right Dorsiflexion (L4) 4- Good- Plantarflexion (S1) 4- Good- PT-OP-Q Treatments Start: 02/12/23 16:06 Freq: Status: Active Protocol: Document 02/23/23 14:19 AM (Rec: 02/23/23 15:14 AM [id number]) Cardio Equipment Recumbent Stepper (Sci-Fit) Duration (Minutes) 5 Resistance 6 Seat Position 15 Therapeutic Exercises Standing Exercises step-up Standing Exercise Name Step up Side left Equipment Used // bars, 4 in step Reps/Minutes 2x10 Comments Bam UE support Calf raise Standing Exercise Name Calf raise Equipment Used // bars Standing TKE Standing Exercise Name Standing TKE Resistance blue band Equipment Used Blue band Reps/Minutes 10x5 sec Resisted side step Standing Exercise Name Resisted side step Resistance Winston TB Equipment Used // bars 3-way hip Standing Exercise Name 3-way hip strengthening Resistance Winston TB Equipment Used // bars Neuro Re-Education Treatment Balance Activities Dynamic balance Details head turns up/down side to side Comments Walking without AD with CGA with gait pattern Semi tandem Details Semi tandem on foam Reps/Duration x30 sec ea Comments With and without head turns Step taps Details Step taps Surface stable Equipment 4 in step in // bars Reps/Duration x10 ea LE Comments without UE support with CGA PT-OP-T Assessment and Plan Start: 02/12/23 16:06 Freq: Status: Active Protocol: Document 02/23/23 14:19 AM (Rec: 02/23/23 15:14 AM [id number]) Physical Therapy Assessment Impairments Impairments Activity Tolerance,Balance, Coordination,Functional Activities,Functional Mobility ,Gait,Pain,Posture,ROM,Soft Tissue Mobility,Strength, Transfers Goals Tandem stance Impairment Balance Impairment Pt able to hold tandem stance for 10 seconds, requiring use of hands to achieve position. Short Term Goal (STG) Pt able to hold tandem stance bilaterally for 16 seconds. STG Duration 03/04/23 Halfway Goal (LTG) Pt able to hold tandem stance for 25 seconds bilaterally. LTG Duration 03/26/23 HEP Impairment Pt with limited HEP Functional Analyst Goal (LTG) Pt is independent with HEP LTG Duration 03/26/23 Balance Impairment Camacho balance Impairment Camacho balance score of 38/56 Short Term Goal (STG) Pt with improved balance with improved Camacho balance score of 43/56. STG Duration 03/04/23 Halfway Goal (LTG) Pt with improved balance with improved Camacho balance score of 48/56 LTG Duration 03/26/23 Strength Impairment Strength Impairment Pt able to complete 5 STS squats in 34.7 seconds with minimal use of unilateral UE at chair that is 20 inches in height. Short Term Goal (STG) Pt able to complete 5 STS squats in 25 seconds without use of UE at chair that is 20 inches in height. STG Duration 03/05/23 Halfway Goal (LTG) Pt able to complete 5 STS squats in 18 seconds without use of UE at chair that is 20 inches in height. 6MWT Impairment Endurance Impairment Pt able to ambulate 886 ft with unilateral trekking pole in 6 minutes. Short Term Goal (STG) Pt able to ambulate 1000 ft with unilateral trekking pole in 6 minutes. STG Duration 03/05/23 Functional Analyst Goal (LTG) Pt able to ambulate 1150 ft with unilateral trekking pole in 6 minutes. LTG Duration 03/26/23 Assessment Summary Assessment Pt tolerated PRE well today. Pt demonstrated 1 LOB during gait activity with head turns, requiring PT assist to correct. Pt requires cueing for posture throughout tx session. Pt demonstrates difficulty with L knee control with CKC activities, demonstrating knee hyperextension/locking. Pt would benefit from continued PT to progress LE strength and mobility to decrease fall risk and improve tolerance to functional activities.
--- NOTE | 2023-02-25 13:31 | PT.OTN ---
Current Diagnoses Unsteadiness on feet (02/25/23) Other abnormalities of gait and mobility (02/25/23) Weakness (02/25/23) Physical Therapy Treatment Note PT-OP-A Visit Information Start: 02/12/23 16:06 Freq: Status: Active Protocol: Document 02/25/23 13:31 AM (Rec: 02/25/23 14:17 AM [id number]) Out-Patient Physical Therapy Visit Information Visit Information Visit Type Treatment Note Visit Start Time 13:31 Visit Stop Time 14:13 Total Visit Minutes 42 Visit Number 4 PT-OP-B Current Condition Start: 02/12/23 16:06 Freq: Status: Active Protocol: Document 02/25/23 13:31 AM (Rec: 02/25/23 14:17 AM [id number]) Current Condition History of Current Condition Onset Date 2020 Current Complaints weakness, unsteadiness History of Current Condition Pt reports that she would like to improve her balance, strength and endurance. Pt with hx of bilateral TKA. Pt had a fall in Dec 2020 and fractured her L patella. She wore a knee immplizer and had surgery, though continues to have difficulty with knee. Pt reports that she locks knee in standing for stability. Pt reports that she walks with walking stick for community ambulation and no AD with household. Pt denies fall since her fall in 2020. Pt reports that she is able to ambulate 2-3 blocks before need to sit because of knee pain and fatigue. Pt reports that she recently got a recumbent bike and plans to use it daily for 20 min. Prior Treatments and Tests Prior PT for knees, back and balance issues Future Testing and Treatments Planned Pt will see her PCP next week and hoping to get low back x- rays PT-OP-C Subjective Start: 02/12/23 16:06 Freq: Status: Active Protocol: Document 02/25/23 13:31 AM (Rec: 02/25/23 14:17 AM [id number]) OP-PT Subjective Patient Comments Patient Comments Pt reports being ill on Wednesday, though feeling better today. Pt reports that she is tired from working at the [employer] this morning. PT-OP-D Balance Start: 02/12/23 16:06 Freq: Status: Active Protocol: Document 02/12/23 16:07 AM (Rec: 02/12/23 17:26 AM [id number]) Camacho Balance Assessment Evaluation Sitting to Standing Ability Independent w/Hands Unsupported Stance Safely- 2 minutes Sitting Unsupported, Feet on Floor Safely- 2 minutes Standing to Sitting Ability Safely, Minimal Hand Use Transfer Ability Safely, Hand Use Unsupported Stance- Eyes Closed Supervision, 10 seconds Unsupported Stance- Eyes Open Supervision to maintain Reaching Forward Standing Confidently, 10 inches Pick- Up Object From Floor Independent/Safe Look Behind Shoulder - Standing Supervision w/Turning Turning 360 Degrees Turns slowly, but safely Unsupported Stance, Alternating Feet on 2 Steps w/Minimum Assist Stair Unsupported Tandem Stance Assist to Step-15 seconds Unilateral Leg Stance Lifts Leg/Unable to Hold Total Score Camacho Total Score (out of 56 points) 38 Camacho Impairment Rating 20 to 39% Impaired (Score 34- 44) PT-OP-E Functional Tests Start: 02/12/23 16:06 Freq: Status: Active Protocol: Document 02/12/23 16:07 AM (Rec: 02/12/23 17:26 AM [id number]) Functional Tests 6 Minute Walk Test Distance 886 Device Used walking stick Five Times Sit to Stand Test Score 34.75 Comments Minor use of UE PT-OP-G Mobility & Gait Start: 02/12/23 16:06 Freq: Status: Active Protocol: Document 02/25/23 13:31 AM (Rec: 02/25/23 14:18 AM [id number]) OP Gait Assessment Gait Gait Assistance Required: Independent Gait Deviations General Gait Pattern Antalgic Factors Limiting Gait Function Factors Limiting Gait Function Decreased Strength,Pain,Poor Balance Comments Gait Comments Pt ambulates with unilateral trekking pole. PT-OP-J Posture/Palpation/Skin Start: 02/12/23 16:06 Freq: Status: Active Protocol: Document 02/12/23 16:07 AM (Rec: 02/12/23 17:26 AM [id number]) Posture Evaluation Position Standing L-Spine Posture Flexed Pelvis Posture Anteriorly Tilted PT-OP-M Strength Start: 02/12/23 16:06 Freq: Status: Active Protocol: Document 02/12/23 16:07 AM (Rec: 02/12/23 17:26 AM [id number]) Hip Strength Hip Manual Muscle Testing Left Flexion (L2) 4- Good- Abduction 4- Good- Adduction 4- Good- Right Flexion (L2) 4- Good- Abduction 4- Good- Adduction 4- Good- Knee Strength Knee Manual Muscle Testing Left Flexion (S2) 4- Good- Extension (L3) 3+ Fair+ Right Flexion (S2) 4- Good- Extension (L3) 4- Good- Ankle/Foot Strength Ankle and Foot Manual Muscle Testing Left Dorsiflexion (L4) 4- Good- Plantarflexion (S1) 4- Good- Right Dorsiflexion (L4) 4- Good- Plantarflexion (S1) 4- Good- PT-OP-Q Treatments Start: 02/12/23 16:06 Freq: Status: Active Protocol: Document 02/25/23 13:31 AM (Rec: 02/25/23 14:17 AM [id number]) Cardio Equipment Recumbent Stepper (Sci-Fit) Duration (Minutes) 6 Resistance 7 Seat Position 15 Gym Equipment Shuttle Recovery Unilateral Squats Resistance 50# (2 navy) Shuttle Recovery Platform Stable Reps/Time x1 min ea LE Bilateral Squats Resistance 75# (3 navy) Reps/Time 2x1 min Therapeutic Exercises Supine Exercises Abdominal iso Supine Exercise Name Hooklying position, swissball on LE. hands clasped, push down into ball Equipment Used orange stateless ball Reps/Minutes 10x5 sec Bent Knee fall out Side bilateral Reps/Minutes x10 Hip flexor stretch Supine Exercise Name Modified zay stretch Side bilateral Reps/Minutes x30 sec Comments manual assist with LE off edge of table, other knee bent in hooklying Bridge Supine Exercise Name Bridge Equipment Used LE on orange swissball Comments x10 Gait Training Gait Activity Trekking poles Description ambulating with trekking poles Device Used unilateral and bilateral Treatment Focus Cues for upright posture PT-OP-T Assessment and Plan Start: 02/12/23 16:06 Freq: Status: Active Protocol: Document 02/25/23 13:31 AM (Rec: 02/25/23 14:17 AM [id number]) Physical Therapy Assessment Impairments Impairments Activity Tolerance,Balance, Coordination,Functional Activities,Functional Mobility ,Gait,Pain,Posture,ROM,Soft Tissue Mobility,Strength, Transfers Goals Tandem stance Impairment Balance Impairment Pt able to hold tandem stance for 10 seconds, requiring use of hands to achieve position. Short Term Goal (STG) Pt able to hold tandem stance bilaterally for 16 seconds. STG Duration 03/04/23 Legal Aid Goal (LTG) Pt able to hold tandem stance for 25 seconds bilaterally. LTG Duration 03/26/23 HEP Impairment Pt with limited HEP Prison Goal (LTG) Pt is independent with HEP LTG Duration 03/26/23 Balance Impairment Camacho balance Impairment Camacho balance score of 38/56 Short Term Goal (STG) Pt with improved balance with improved Camacho balance score of 43/56. STG Duration 03/04/23 Prison Goal (LTG) Pt with improved balance with improved Camacho balance score of 48/56 LTG Duration 03/26/23 Strength Impairment Strength Impairment Pt able to complete 5 STS squats in 34.7 seconds with minimal use of unilateral UE at chair that is 20 inches in height. Short Term Goal (STG) Pt able to complete 5 STS squats in 25 seconds without use of UE at chair that is 20 inches in height. STG Duration 03/05/23 Legal Aid Goal (LTG) Pt able to complete 5 STS squats in 18 seconds without use of UE at chair that is 20 inches in height. 6MWT Impairment Endurance Impairment Pt able to ambulate 886 ft with unilateral trekking pole in 6 minutes. Short Term Goal (STG) Pt able to ambulate 1000 ft with unilateral trekking pole in 6 minutes. STG Duration 03/05/23 Prison Goal (LTG) Pt able to ambulate 1150 ft with unilateral trekking pole in 6 minutes. LTG Duration 03/26/23 Assessment Summary Assessment Pt with reported decrease in LBP with hip flexor stretching . Pt challenged with difficulty with lumbopelvic control with BKFO, requiring cueing. Pt with reported quad fatigue with shuttle squats today. Pt with difficulty with coordination with bilateral trekking poles. Pt demonstrated improved posture with unilateral trekking pole. Pt would benefit from continued PT to progress LE/ trunk strength and balance. Physical Therapy Plan Frequency and Duration Frequency of Treatment 2x/Week Duration of treatment (weeks) 6 Plan of Care Start Date 02/12/23 Plan of Care End Date 03/26/23 Therapeutic Interventions Therapeutic Interventions Balance Training,Coordination Training,Gait Training,Home Exercise Program,Manual Therapy,Neuromuscular Re- education,Patient/Caregiver Education,Self-Care/Home Management,Soft Tissue Mobilization,Taping, Therapeutic Activities, Therapeutic Exercises Modalities Cold Pack/Ice Massage,Hot Packs Next Visit Focus/Plan Next Note Type Treatment Note Next Visit Plan progress strength, endurance and balance as tolerated
--- NOTE | 2023-03-02 16:03 | PT.OTN ---
Current Diagnoses Unsteadiness on feet (03/02/23) Other abnormalities of gait and mobility (03/02/23) Weakness (03/02/23) Physical Therapy Treatment Note PT-OP-A Visit Information Start: 02/12/23 16:06 Freq: Status: Active Protocol: Document 03/02/23 15:28 NBM (Rec: 03/02/23 16:02 [facility] [id number]) Out-Patient Physical Therapy Visit Information Visit Information Visit Type Treatment Note Visit Start Time 13:31 Visit Stop Time 14:15 Total Visit Minutes 44 Visit Number 5 Number of DISHWASHER BUSSER Visits 1 PT-OP-B Current Condition Start: 02/12/23 16:06 Freq: Status: Active Protocol: Document 02/25/23 13:31 AM (Rec: 02/25/23 14:17 AM [id number]) Current Condition History of Current Condition Onset Date 2020 Current Complaints weakness, unsteadiness History of Current Condition Pt reports that she would like to improve her balance, strength and endurance. Pt with hx of bilateral TKA. Pt had a fall in Dec 2020 and fractured her L patella. She wore a knee immplizer and had surgery, though continues to have difficulty with knee. Pt reports that she locks knee in standing for stability. Pt reports that she walks with walking stick for community ambulation and no AD with household. Pt denies fall since her fall in 2020. Pt reports that she is able to ambulate 2-3 blocks before need to sit because of knee pain and fatigue. Pt reports that she recently got a recumbent bike and plans to use it daily for 20 min. Prior Treatments and Tests Prior PT for knees, back and balance issues Future Testing and Treatments Planned Pt will see her PCP next week and hoping to get low back x- rays PT-OP-C Subjective Start: 02/12/23 16:06 Freq: Status: Active Protocol: Document 03/02/23 15:28 NBM (Rec: 03/02/23 16:02 NB [id number]) OP-PT Subjective Patient Comments Patient Comments Nevaeh reports she is sleeping better with medication. She is doing knee to chest stretch in bed before getting up. She spent too many hours sitting on her trip [place] the weekend [place] driving and ferry and her low back was really hurting after. She is doing her ex's. She does not walk as much because she is afraid to walk alone in case of a fall, and she reports hasn't fallen or had any close calls in a while . She is more comfortable with the one trekking pole instead of two. PT-OP-D Balance Start: 02/12/23 16:06 Freq: Status: Active Protocol: Document 02/12/23 16:07 AM (Rec: 02/12/23 17:26 AM [id number]) Camacho Balance Assessment Evaluation Sitting to Standing Ability Independent w/Hands Unsupported Stance Safely- 2 minutes Sitting Unsupported, Feet on Floor Safely- 2 minutes Standing to Sitting Ability Safely, Minimal Hand Use Transfer Ability Safely, Hand Use Unsupported Stance- Eyes Closed Supervision, 10 seconds Unsupported Stance- Eyes Open Supervision to maintain Reaching Forward Standing Confidently, 10 inches Pick- Up Object From Floor Independent/Safe Look Behind Shoulder - Standing Supervision w/Turning Turning 360 Degrees Turns slowly, but safely Unsupported Stance, Alternating Feet on 2 Steps w/Minimum Assist Stair Unsupported Tandem Stance Assist to Step-15 seconds Unilateral Leg Stance Lifts Leg/Unable to Hold Total Score Camacho Total Score (out of 56 points) 38 Camacho Impairment Rating 20 to 39% Impaired (Score 34- 44) PT-OP-E Functional Tests Start: 02/12/23 16:06 Freq: Status: Active Protocol: Document 02/12/23 16:07 AM (Rec: 02/12/23 17:26 AM [id number]) Functional Tests 6 Minute Walk Test Distance 886 Device Used walking stick Five Times Sit to Stand Test Score 34.75 Comments Minor use of UE PT-OP-G Mobility & Gait Start: 02/12/23 16:06 Freq: Status: Active Protocol: Document 02/25/23 13:31 AM (Rec: 02/25/23 14:18 AM [id number]) OP Gait Assessment Gait Gait Assistance Required: Independent Gait Deviations General Gait Pattern Antalgic Factors Limiting Gait Function Factors Limiting Gait Function Decreased Strength,Pain,Poor Balance Comments Gait Comments Pt ambulates with unilateral trekking pole. PT-OP-J Posture/Palpation/Skin Start: 02/12/23 16:06 Freq: Status: Active Protocol: Document 02/12/23 16:07 AM (Rec: 02/12/23 17:26 AM [id number]) Posture Evaluation Position Standing L-Spine Posture Flexed Pelvis Posture Anteriorly Tilted PT-OP-M Strength Start: 02/12/23 16:06 Freq: Status: Active Protocol: Document 02/12/23 16:07 AM (Rec: 02/12/23 17:26 AM [id number]) Hip Strength Hip Manual Muscle Testing Left Flexion (L2) 4- Good- Abduction 4- Good- Adduction 4- Good- Right Flexion (L2) 4- Good- Abduction 4- Good- Adduction 4- Good- Knee Strength Knee Manual Muscle Testing Left Flexion (S2) 4- Good- Extension (L3) 3+ Fair+ Right Flexion (S2) 4- Good- Extension (L3) 4- Good- Ankle/Foot Strength Ankle and Foot Manual Muscle Testing Left Dorsiflexion (L4) 4- Good- Plantarflexion (S1) 4- Good- Right Dorsiflexion (L4) 4- Good- Plantarflexion (S1) 4- Good- PT-OP-Q Treatments Start: 02/12/23 16:06 Freq: Status: Active Protocol: Document 03/02/23 15:28 NB (Rec: 03/02/23 16:02 [facility] [id number]) Gym Equipment Shuttle Recovery Unilateral Squats Details initial cue for RLE foot positioning for LE alignment Resistance 50# (2 navy) Shuttle Recovery Platform Stable Reps/Time x1 min ea LE Bilateral Heel Raises Details cued not hyperextension L knee Resistance 75# Shuttle Recovery Platform Stable Reps/Time 25 reps Bilateral Squats Details orange Tb above knees to improve LE alignment Resistance 75# (3 navy) Shuttle Recovery Platform Stable Reps/Time x5, 2x 1' w/ Tb Therapeutic Exercises Supine Exercises LTR Supine Exercise Name lower trunk rotation Side bilateral Reps/Minutes x10 ea Comments vc for PPT to avoid lumbar hyperextension Bent Knee fall out Side bilateral Reps/Minutes x10 ea Comments max cues for PPT, TrA, slower pacing, smaller range to avoid lumb hyperext Hip flexor stretch Supine Exercise Name Modified zay stretch w/ PPT Side bilateral Reps/Minutes x30 sec Comments manual assist with LE off edge of table, other knee bent in hooklying. Bridge Supine Exercise Name Bridge Side bilateral Equipment Used Lvl 2 [place] Tb above knees Reps/Minutes x10 Comments vc for gluteal activation, no breathholding SKTC Supine Exercise Name SKTC Side bilateral Reps/Minutes 2x30 sec Gait Training Gait Activity Trekking poles Description ambulating with trekking pole Device Used unilateral RUE Level of Assistance CGA Surface carpet, tile Distance/Duration 75', 200' Treatment Focus vc pacing, upright posture, sequencing, smaller distance w / AD, focal point Comments Pt's sequencing and confidence improve w/ repetition and cueing. Self-Care/Home Management Treatment Education Patient Education Home Exercise Program,Pain Management,Posture Other Education Education to pt how tight hip flexors can contribute to forward flexed posture and increase low back pain w/ walking and how HEP can assist . PT-OP-T Assessment and Plan Start: 02/12/23 16:06 Freq: Status: Active Protocol: Document 03/02/23 15:28 [facility] (Rec: 03/02/23 16:02 [facility] [id number]) Physical Therapy Assessment Goals Tandem stance Impairment Balance Impairment Pt able to hold tandem stance for 10 seconds, requiring use of hands to achieve position. Short Term Goal (STG) Pt able to hold tandem stance bilaterally for 16 seconds. STG Duration 03/04/23 Senior Living Goal (LTG) Pt able to hold tandem stance for 25 seconds bilaterally. LTG Duration 03/26/23 HEP Impairment Pt with limited HEP Personnel Administrator Goal (LTG) Pt is independent with HEP LTG Duration 03/26/23 Balance Impairment Camacho balance Impairment Camacho balance score of 38/56 Short Term Goal (STG) Pt with improved balance with improved Camacho balance score of 43/56. STG Duration 03/04/23 Personnel Administrator Goal (LTG) Pt with improved balance with improved Camacho balance score of 48/56 LTG Duration 03/26/23 Strength Impairment Strength Impairment Pt able to complete 5 STS squats in 34.7 seconds with minimal use of unilateral UE at chair that is 20 inches in height. Short Term Goal (STG) Pt able to complete 5 STS squats in 25 seconds without use of UE at chair that is 20 inches in height. STG Duration 03/05/23 Senior Living Goal (LTG) Pt able to complete 5 STS squats in 18 seconds without use of UE at chair that is 20 inches in height. 6MWT Impairment Endurance Impairment Pt able to ambulate 886 ft with unilateral trekking pole in 6 minutes. Short Term Goal (STG) Pt able to ambulate 1000 ft with unilateral trekking pole in 6 minutes. STG Duration 03/05/23 Personnel Administrator Goal (LTG) Pt able to ambulate 1150 ft with unilateral trekking pole in 6 minutes. LTG Duration 03/26/23 Assessment Summary Assessment Treatment focus on LE strengthening, HEP review and gait training w/ unilateral trekking pole in RUE. Education to Nevaeh how tight hip flexors can contribute to forward flexed posture and increase low back pain w/ walking and how HEP can assist . Pt demonstrates cinthia knee valgus and flexion endrange w/ cinthia squats on Shuttle recovery, which imrpoves w/ orange Tb above knees. She is challenged w/ BKFO and requires max cues for PPT, TrA , slower pacing, and smaller range to avoid lumbar hyperextension. Pt's sequencing and confidence ambulating w/ trekking pole improve w/ repetition and cueing for sequencing, fully upright posture, slower pacing , closer AD placement, and distant focal point. Pt does not want to walk alone for safety and is encouraged to do more walking at home w/ trekking pole in RUE w/ family members. Physical Therapy Plan Frequency and Duration Frequency of Treatment 2x/Week Duration of treatment (weeks) 6 Plan of Care Start Date 02/12/23 Plan of Care End Date 03/26/23 Therapeutic Interventions Therapeutic Interventions Balance Training,Coordination Training,Gait Training,Home Exercise Program,Manual Therapy,Neuromuscular Re- education,Patient/Caregiver Education,Self-Care/Home Management,Soft Tissue Mobilization,Taping, Therapeutic Activities, Therapeutic Exercises Modalities Cold Pack/Ice Massage,Hot Packs Next Visit Focus/Plan Next Note Type Treatment Note Next Visit Plan progress strength, endurance and balance as tolerated
--- NOTE | 2023-03-02 16:07 | PT.OTN ---
Current Diagnoses Unsteadiness on feet (03/02/23) Other abnormalities of gait and mobility (03/02/23) Weakness (03/02/23) Physical Therapy Treatment Note PT-OP-A Visit Information Start: 02/12/23 16:06 Freq: Status: Active Protocol: Document 03/02/23 15:28 NBM (Rec: 03/02/23 16:02 [facility] [id number]) Out-Patient Physical Therapy Visit Information Visit Information Visit Type Treatment Note Visit Start Time 13:31 Visit Stop Time 14:15 Total Visit Minutes 44 Visit Number 5 Number of PORTFOLIO ASSISTANT Visits 1 PT-OP-B Current Condition Start: 02/12/23 16:06 Freq: Status: Active Protocol: Document 02/25/23 13:31 AM (Rec: 02/25/23 14:17 AM [id number]) Current Condition History of Current Condition Onset Date 2020 Current Complaints weakness, unsteadiness History of Current Condition Pt reports that she would like to improve her balance, strength and endurance. Pt with hx of bilateral TKA. Pt had a fall in Dec 2020 and fractured her L patella. She wore a knee immplizer and had surgery, though continues to have difficulty with knee. Pt reports that she locks knee in standing for stability. Pt reports that she walks with walking stick for community ambulation and no AD with household. Pt denies fall since her fall in 2020. Pt reports that she is able to ambulate 2-3 blocks before need to sit because of knee pain and fatigue. Pt reports that she recently got a recumbent bike and plans to use it daily for 20 min. Prior Treatments and Tests Prior PT for knees, back and balance issues Future Testing and Treatments Planned Pt will see her PCP next week and hoping to get low back x- rays PT-OP-C Subjective Start: 02/12/23 16:06 Freq: Status: Active Protocol: Document 03/02/23 15:28 NBM (Rec: 03/02/23 16:02 NB [id number]) OP-PT Subjective Patient Comments Patient Comments Nevaeh reports she is sleeping better with medication. She is doing knee to chest stretch in bed before getting up. She spent too many hours sitting on her trip over the weekend with driving and ferry and her low back was really hurting after. She is doing her ex's. She does not walk as much because she is afraid to walk alone in case of a fall, and she reports hasn't fallen or had any close calls in a while . She is more comfortable with the one trekking pole instead of two. PT-OP-D Balance Start: 02/12/23 16:06 Freq: Status: Active Protocol: Document 02/12/23 16:07 AM (Rec: 02/12/23 17:26 AM [id number]) Camacho Balance Assessment Evaluation Sitting to Standing Ability Independent w/Hands Unsupported Stance Safely- 2 minutes Sitting Unsupported, Feet on Floor Safely- 2 minutes Standing to Sitting Ability Safely, Minimal Hand Use Transfer Ability Safely, Hand Use Unsupported Stance- Eyes Closed Supervision, 10 seconds Unsupported Stance- Eyes Open Supervision to maintain Reaching Forward Standing Confidently, 10 inches Pick- Up Object From Floor Independent/Safe Look Behind Shoulder - Standing Supervision w/Turning Turning 360 Degrees Turns slowly, but safely Unsupported Stance, Alternating Feet on 2 Steps w/Minimum Assist Stair Unsupported Tandem Stance Assist to Step-15 seconds Unilateral Leg Stance Lifts Leg/Unable to Hold Total Score Camacho Total Score (out of 56 points) 38 Camacho Impairment Rating 20 to 39% Impaired (Score 34- 44) PT-OP-E Functional Tests Start: 02/12/23 16:06 Freq: Status: Active Protocol: Document 02/12/23 16:07 AM (Rec: 02/12/23 17:26 AM [id number]) Functional Tests 6 Minute Walk Test Distance 886 Device Used walking stick Five Times Sit to Stand Test Score 34.75 Comments Minor use of UE PT-OP-G Mobility & Gait Start: 02/12/23 16:06 Freq: Status: Active Protocol: Document 02/25/23 13:31 AM (Rec: 02/25/23 14:18 AM [id number]) OP Gait Assessment Gait Gait Assistance Required: Independent Gait Deviations General Gait Pattern Antalgic Factors Limiting Gait Function Factors Limiting Gait Function Decreased Strength,Pain,Poor Balance Comments Gait Comments Pt ambulates with unilateral trekking pole. PT-OP-J Posture/Palpation/Skin Start: 02/12/23 16:06 Freq: Status: Active Protocol: Document 02/12/23 16:07 AM (Rec: 02/12/23 17:26 AM [id number]) Posture Evaluation Position Standing L-Spine Posture Flexed Pelvis Posture Anteriorly Tilted PT-OP-M Strength Start: 02/12/23 16:06 Freq: Status: Active Protocol: Document 02/12/23 16:07 AM (Rec: 02/12/23 17:26 AM [id number]) Hip Strength Hip Manual Muscle Testing Left Flexion (L2) 4- Good- Abduction 4- Good- Adduction 4- Good- Right Flexion (L2) 4- Good- Abduction 4- Good- Adduction 4- Good- Knee Strength Knee Manual Muscle Testing Left Flexion (S2) 4- Good- Extension (L3) 3+ Fair+ Right Flexion (S2) 4- Good- Extension (L3) 4- Good- Ankle/Foot Strength Ankle and Foot Manual Muscle Testing Left Dorsiflexion (L4) 4- Good- Plantarflexion (S1) 4- Good- Right Dorsiflexion (L4) 4- Good- Plantarflexion (S1) 4- Good- PT-OP-Q Treatments Start: 02/12/23 16:06 Freq: Status: Active Protocol: Document 03/02/23 15:28 NB (Rec: 03/02/23 16:02 [facility] [id number]) Gym Equipment Shuttle Recovery Unilateral Squats Details initial cue for RLE foot positioning for LE alignment Resistance 50# (2 navy) Shuttle Recovery Platform Stable Reps/Time x1 min ea LE Bilateral Heel Raises Details cued not hyperextension L knee Resistance 75# Shuttle Recovery Platform Stable Reps/Time 25 reps Bilateral Squats Details orange Tb above knees to improve LE alignment Resistance 75# (3 navy) Shuttle Recovery Platform Stable Reps/Time x5, 2x 1' w/ Tb Therapeutic Exercises Supine Exercises LTR Supine Exercise Name lower trunk rotation Side bilateral Reps/Minutes x10 ea Comments vc for PPT to avoid lumbar hyperextension Bent Knee fall out Side bilateral Reps/Minutes x10 ea Comments max cues for PPT, TrA, slower pacing, smaller range to avoid lumb hyperext Hip flexor stretch Supine Exercise Name Modified zay stretch w/ PPT Side bilateral Reps/Minutes x30 sec Comments manual assist with LE off edge of table, other knee bent in hooklying. Bridge Supine Exercise Name Bridge Side bilateral Equipment Used Lvl 2 [place] Tb above knees Reps/Minutes x10 Comments vc for gluteal activation, no breathholding SKTC Supine Exercise Name SKTC Side bilateral Reps/Minutes 2x30 sec Therapeutic Activity Therapeutic Activity STS Name sit to stand Reps/Minutes x10 21 Comments hi-lo table using no UE support standing, occ thigh support sitting, cues for fully upright posture w/ glute activation and eccentric control. Gait Training Gait Activity Trekking poles Description ambulating with trekking pole Device Used unilateral RUE Level of Assistance CGA Surface carpet, tile Distance/Duration 75', 200' Treatment Focus vc pacing, upright posture, sequencing, smaller distance w / AD, focal point Comments Pt's sequencing and confidence improve w/ repetition and cueing. Self-Care/Home Management Treatment Education Patient Education Home Exercise Program,Pain Management,Posture Other Education Education to pt how tight hip flexors can contribute to forward flexed posture and increase low back pain w/ walking and how HEP can assist . PT-OP-T Assessment and Plan Start: 02/12/23 16:06 Freq: Status: Active Protocol: Document 03/02/23 15:28 [facility] (Rec: 03/02/23 16:02 [facility] [id number]) Physical Therapy Assessment Goals Tandem stance Impairment Balance Impairment Pt able to hold tandem stance for 10 seconds, requiring use of hands to achieve position. Short Term Goal (STG) Pt able to hold tandem stance bilaterally for 16 seconds. STG Duration 03/04/23 Shelter Goal (LTG) Pt able to hold tandem stance for 25 seconds bilaterally. LTG Duration 03/26/23 HEP Impairment Pt with limited HEP Shelter Goal (LTG) Pt is independent with HEP LTG Duration 03/26/23 Balance Impairment Camacho balance Impairment Camacho balance score of 38/56 Short Term Goal (STG) Pt with improved balance with improved Camacho balance score of 43/56. STG Duration 03/04/23 Shelter Goal (LTG) Pt with improved balance with improved Camacho balance score of 48/56 LTG Duration 03/26/23 Strength Impairment Strength Impairment Pt able to complete 5 STS squats in 34.7 seconds with minimal use of unilateral UE at chair that is 20 inches in height. Short Term Goal (STG) Pt able to complete 5 STS squats in 25 seconds without use of UE at chair that is 20 inches in height. STG Duration 03/05/23 Shelter Goal (LTG) Pt able to complete 5 STS squats in 18 seconds without use of UE at chair that is 20 inches in height. 6MWT Impairment Endurance Impairment Pt able to ambulate 886 ft with unilateral trekking pole in 6 minutes. Short Term Goal (STG) Pt able to ambulate 1000 ft with unilateral trekking pole in 6 minutes. STG Duration 03/05/23 Shelter Goal (LTG) Pt able to ambulate 1150 ft with unilateral trekking pole in 6 minutes. LTG Duration 03/26/23 Assessment Summary Assessment Treatment focus on LE strengthening, HEP review and gait training w/ unilateral trekking pole in RUE. Education to Nevaeh how tight hip flexors can contribute to forward flexed posture and increase low back pain w/ walking and how HEP can assist . Pt demonstrates cinthia knee valgus and flexion endrange w/ cinthia squats on Shuttle recovery, which imrpoves w/ orange Tb above knees. She is challenged w/ BKFO and requires max cues for PPT, TrA , slower pacing, and smaller range to avoid lumbar hyperextension. Pt's sequencing and confidence ambulating w/ trekking pole improve w/ repetition and cueing for sequencing, fully upright posture, slower pacing , closer AD placement, and distant focal point. Pt does not want to walk alone for safety and is encouraged to do more walking at home w/ trekking pole in RUE w/ family members. Physical Therapy Plan Frequency and Duration Frequency of Treatment 2x/Week Duration of treatment (weeks) 6 Plan of Care Start Date 02/12/23 Plan of Care End Date 03/26/23 Therapeutic Interventions Therapeutic Interventions Balance Training,Coordination Training,Gait Training,Home Exercise Program,Manual Therapy,Neuromuscular Re- education,Patient/Caregiver Education,Self-Care/Home Management,Soft Tissue Mobilization,Taping, Therapeutic Activities, Therapeutic Exercises Modalities Cold Pack/Ice Massage,Hot Packs Next Visit Focus/Plan Next Note Type Treatment Note Next Visit Plan progress strength, endurance and balance as tolerated
--- NOTE | 2023-03-04 14:18 | PT.OTN ---
Current Diagnoses Unsteadiness on feet (03/04/23) Other abnormalities of gait and mobility (03/04/23) Weakness (03/04/23) Physical Therapy Treatment Note PT-OP-A Visit Information Start: 02/12/23 16:06 Freq: Status: Active Protocol: Document 03/04/23 14:18 AM (Rec: 03/04/23 15:10 AM [id number]) Out-Patient Physical Therapy Visit Information Visit Information Visit Type Progress Note Visit Start Time 14:18 Visit Stop Time 15:00 Total Visit Minutes 42 Visit Number 6 Number of SALES ANALYTICS MANAGER Visits 1 PT-OP-B Current Condition Start: 02/12/23 16:06 Freq: Status: Active Protocol: Document 02/25/23 13:31 AM (Rec: 02/25/23 14:17 AM [id number]) Current Condition History of Current Condition Onset Date 2020 Current Complaints weakness, unsteadiness History of Current Condition Pt reports that she would like to improve her balance, strength and endurance. Pt with hx of bilateral TKA. Pt had a fall in Dec 2020 and fractured her L patella. She wore a knee immplizer and had surgery, though continues to have difficulty with knee. Pt reports that she locks knee in standing for stability. Pt reports that she walks with walking stick for community ambulation and no AD with household. Pt denies fall since her fall in 2020. Pt reports that she is able to ambulate 2-3 blocks before need to sit because of knee pain and fatigue. Pt reports that she recently got a recumbent bike and plans to use it daily for 20 min. Prior Treatments and Tests Prior PT for knees, back and balance issues Future Testing and Treatments Planned Pt will see her PCP next week and hoping to get low back x- rays PT-OP-C Subjective Start: 02/12/23 16:06 Freq: Status: Active Protocol: Document 03/04/23 14:18 AM (Rec: 03/04/23 15:10 AM [id number]) OP-PT Subjective Patient Comments Patient Comments Nevaeh reports that she had an x-ray yesterday for low back. PT-OP-D Balance Start: 02/12/23 16:06 Freq: Status: Active Protocol: Document 03/04/23 14:18 AM (Rec: 03/04/23 15:11 AM [id number]) Balance Tests Tandem Tandem Standing 15 sec PT-OP-E Functional Tests Start: 02/12/23 16:06 Freq: Status: Active Protocol: Document 03/04/23 14:18 AM (Rec: 03/04/23 15:11 AM [id number]) Functional Tests 6 Minute Walk Test Distance 810 Device Used unilateral trekking pole Five Times Sit to Stand Test Score 25 PT-OP-G Mobility & Gait Start: 02/12/23 16:06 Freq: Status: Active Protocol: Document 02/25/23 13:31 AM (Rec: 02/25/23 14:18 AM [id number]) OP Gait Assessment Gait Gait Assistance Required: Independent Gait Deviations General Gait Pattern Antalgic Factors Limiting Gait Function Factors Limiting Gait Function Decreased Strength,Pain,Poor Balance Comments Gait Comments Pt ambulates with unilateral trekking pole. PT-OP-J Posture/Palpation/Skin Start: 02/12/23 16:06 Freq: Status: Active Protocol: Document 02/12/23 16:07 AM (Rec: 02/12/23 17:26 AM [id number]) Posture Evaluation Position Standing L-Spine Posture Flexed Pelvis Posture Anteriorly Tilted PT-OP-M Strength Start: 02/12/23 16:06 Freq: Status: Active Protocol: Document 02/12/23 16:07 AM (Rec: 02/12/23 17:26 AM [id number]) Hip Strength Hip Manual Muscle Testing Left Flexion (L2) 4- Good- Abduction 4- Good- Adduction 4- Good- Right Flexion (L2) 4- Good- Abduction 4- Good- Adduction 4- Good- Knee Strength Knee Manual Muscle Testing Left Flexion (S2) 4- Good- Extension (L3) 3+ Fair+ Right Flexion (S2) 4- Good- Extension (L3) 4- Good- Ankle/Foot Strength Ankle and Foot Manual Muscle Testing Left Dorsiflexion (L4) 4- Good- Plantarflexion (S1) 4- Good- Right Dorsiflexion (L4) 4- Good- Plantarflexion (S1) 4- Good- PT-OP-Q Treatments Start: 02/12/23 16:06 Freq: Status: Active Protocol: Document 03/04/23 14:18 AM (Rec: 03/04/23 15:10 AM [id number]) Cardio Equipment Recumbent Stepper (Sci-Fit) Duration (Minutes) 6 Resistance 8 Seat Position 13 Therapeutic Exercises Supine Exercises Bent Knee fall out Side bilateral Reps/Minutes x10 ea Comments max cues for PPT, TrA, slower pacing, smaller range to avoid lumb hyperext Hip flexor stretch Supine Exercise Name Modified zay stretch w/ PPT Side bilateral Reps/Minutes x30 sec Comments manual assist with LE off edge of table, other knee bent in hooklying. Bridge Supine Exercise Name Bridge Side bilateral Equipment Used Lvl 2 [place] Tb above knees Reps/Minutes x10 Comments vc for gluteal activation, no breathholding SKTC Supine Exercise Name SKTC Side bilateral Reps/Minutes 2x30 sec Gait Training Gait Activity Trekking poles Description ambulating with trekking pole Device Used unilateral RUE Level of Assistance SBA Surface carpet, tile Distance/Duration 810' in 6 min Treatment Focus vc pacing, upright posture, sequencing, smaller distance w / AD, focal point PT-OP-T Assessment and Plan Start: 02/12/23 16:06 Freq: Status: Active Protocol: Document 03/04/23 14:18 AM (Rec: 03/04/23 15:10 AM [id number]) Physical Therapy Assessment Impairments Impairments Activity Tolerance,Balance, Coordination,Functional Activities,Functional Mobility ,Gait,Pain,Posture,ROM,Soft Tissue Mobility,Strength, Transfers Goals Tandem stance Impairment Balance Impairment Pt able to hold tandem stance for 10 seconds, requiring use of hands to achieve position. Short Term Goal (STG) Pt able to hold tandem stance bilaterally for 16 seconds. 03/04/23: Goal progressing. Pt able to hold for 15 seconds bilaterally. STG Duration 03/04/23 [facility] Goal (LTG) Pt able to hold tandem stance for 25 seconds bilaterally. LTG Duration 03/26/23 HEP Impairment Pt with limited HEP Criminal Justice Faculty Goal (LTG) Pt is independent with HEP LTG Duration 03/26/23 Balance Impairment Henderson balance Impairment Henderson balance score of 38/56 Short Term Goal (STG) Pt with improved balance with improved Henderson balance score of 43/56. STG Duration 03/04/23 Criminal Justice Faculty Goal (LTG) Pt with improved balance with improved Henderson balance score of 48/56 LTG Duration 03/26/23 Strength Impairment Strength Impairment Pt able to complete 5 STS squats in 34.7 seconds with minimal use of unilateral UE at chair that is 20 inches in height. Short Term Goal (STG) Pt able to complete 5 STS squats in 25 seconds without use of UE at chair that is 20 inches in height. Goal Met: 03/04/23 Pt able to complete in 25 seconds. STG Duration 03/05/23 [facility] Goal (LTG) Pt able to complete 5 STS squats in 18 seconds without use of UE at chair that is 20 inches in height. 6MWT Impairment Endurance Impairment Pt able to ambulate 886 ft with unilateral trekking pole in 6 minutes. Short Term Goal (STG) Pt able to ambulate 1000 ft with unilateral trekking pole in 6 minutes. Goal unmet on 03/04/23. Pt ambulated 804 ft. Pt reports increase in LBP with walking. STG Duration 03/05/23 [facility] Goal (LTG) Pt able to ambulate 1150 ft with unilateral trekking pole in 6 minutes. LTG Duration 03/26/23 Progress Towards Goals Progress Towards Goals Progressing Toward Goals Assessment Summary Assessment Pt demonstrates progress towards goal. Pt with improved 5x STS test and tandem stance compared to IE. Pt's 6MWT was less than IE, though tested at end of tx session today when more fatigued. Pt would benefit from continued PT to progress functional strength, endurance and balance to improve tolerance with functional tasks. Physical Therapy Plan Frequency and Duration Frequency of Treatment 2x/Week Duration of treatment (weeks) 6 Plan of Care Start Date 02/12/23 Plan of Care End Date 03/26/23 Therapeutic Interventions Therapeutic Interventions Balance Training,Coordination Training,Gait Training,Home Exercise Program,Manual Therapy,Neuromuscular Re- education,Patient/Caregiver Education,Self-Care/Home Management,Soft Tissue Mobilization,Taping, Therapeutic Activities, Therapeutic Exercises Modalities Cold Pack/Ice Massage,Hot Packs Next Visit Focus/Plan Next Note Type Treatment Note Next Visit Plan progress strength, endurance and balance as tolerated, assess HENDERSON next PT Session
--- NOTE | 2023-03-08 13:40 | PT.OTN ---
Current Diagnoses Unsteadiness on feet (03/08/23) Other abnormalities of gait and mobility (03/08/23) Weakness (03/08/23) Physical Therapy Treatment Note PT-OP-A Visit Information Start: 02/12/23 16:06 Freq: Status: Active Protocol: Document 03/08/23 12:25 NBM (Rec: 03/08/23 13:35 NBM [id number]) Out-Patient Physical Therapy Visit Information Visit Information Visit Type Treatment Note Visit Start Time 12:20 Visit Stop Time 13:03 Total Visit Minutes 43 Visit Number 7 Number of SITE SUPERVISING TECHNICAL OPERATOR Visits 1 PT-OP-B Current Condition Start: 02/12/23 16:06 Freq: Status: Active Protocol: Document 02/25/23 13:31 AM (Rec: 02/25/23 14:17 AM [id number]) Current Condition History of Current Condition Onset Date 2020 Current Complaints weakness, unsteadiness History of Current Condition Pt reports that she would like to improve her balance, strength and endurance. Pt with hx of bilateral TKA. Pt had a fall in Dec 2020 and fractured her L patella. She wore a knee immplizer and had surgery, though continues to have difficulty with knee. Pt reports that she locks knee in standing for stability. Pt reports that she walks with walking stick for community ambulation and no AD with household. Pt denies fall since her fall in 2020. Pt reports that she is able to ambulate 2-3 blocks before need to sit because of knee pain and fatigue. Pt reports that she recently got a recumbent bike and plans to use it daily for 20 min. Prior Treatments and Tests Prior PT for knees, back and balance issues Future Testing and Treatments Planned Pt will see her PCP next week and hoping to get low back x- rays PT-OP-C Subjective Start: 02/12/23 16:06 Freq: Status: Active Protocol: Document 03/08/23 12:25 NBM (Rec: 03/08/23 13:35 NBM [id number]) OP-PT Subjective Patient Comments Patient Comments Nevaeh reports her bloodwork results were fine; she has not gotten her X-ray results yet. She has not slept well in three days. Her low back hurts more throughout the day and she has seen pictures of herself that show she is leaning forward even though she is trying to stand upright . PT-OP-D Balance Start: 02/12/23 16:06 Freq: Status: Active Protocol: Document 03/08/23 12:25 NBM (Rec: 03/08/23 13:35 NBM [id number]) Camacho Balance Assessment Evaluation Sitting to Standing Ability Independent w/Hands Unsupported Stance Safely- 2 minutes Sitting Unsupported, Feet on Floor Safely- 2 minutes Standing to Sitting Ability Safely, Minimal Hand Use Transfer Ability Safely, Hand Use Unsupported Stance- Eyes Closed Supervision, 10 seconds Unsupported Stance- Eyes Open Supervision to maintain Reaching Forward Standing Confidently, 10 inches Pick- Up Object From Floor Independent/Safe Look Behind Shoulder - Standing Supervision w/Turning Turning 360 Degrees Turns slowly, but safely Unsupported Stance, Alternating Feet on 4 Steps w/Supervision Stair Unsupported Tandem Stance Small Step- 30 seconds Unilateral Leg Stance Lifts Leg/Unable to Hold Total Score Camacho Total Score (out of 56 points) 40 Camacho Impairment Rating 20 to 39% Impaired (Score 34- 44) PT-OP-E Functional Tests Start: 02/12/23 16:06 Freq: Status: Active Protocol: Document 03/04/23 14:18 AM (Rec: 03/04/23 15:11 AM [id number]) Functional Tests 6 Minute Walk Test Distance 810 Device Used unilateral trekking pole Five Times Sit to Stand Test Score 25 PT-OP-G Mobility & Gait Start: 02/12/23 16:06 Freq: Status: Active Protocol: Document 02/25/23 13:31 AM (Rec: 02/25/23 14:18 AM [id number]) OP Gait Assessment Gait Gait Assistance Required: Independent Gait Deviations General Gait Pattern Antalgic Factors Limiting Gait Function Factors Limiting Gait Function Decreased Strength,Pain,Poor Balance Comments Gait Comments Pt ambulates with unilateral trekking pole. PT-OP-J Posture/Palpation/Skin Start: 02/12/23 16:06 Freq: Status: Active Protocol: Document 02/12/23 16:07 AM (Rec: 02/12/23 17:26 AM [id number]) Posture Evaluation Position Standing L-Spine Posture Flexed Pelvis Posture Anteriorly Tilted PT-OP-M Strength Start: 02/12/23 16:06 Freq: Status: Active Protocol: Document 02/12/23 16:07 AM (Rec: 02/12/23 17:26 AM [id number]) Hip Strength Hip Manual Muscle Testing Left Flexion (L2) 4- Good- Abduction 4- Good- Adduction 4- Good- Right Flexion (L2) 4- Good- Abduction 4- Good- Adduction 4- Good- Knee Strength Knee Manual Muscle Testing Left Flexion (S2) 4- Good- Extension (L3) 3+ Fair+ Right Flexion (S2) 4- Good- Extension (L3) 4- Good- Ankle/Foot Strength Ankle and Foot Manual Muscle Testing Left Dorsiflexion (L4) 4- Good- Plantarflexion (S1) 4- Good- Right Dorsiflexion (L4) 4- Good- Plantarflexion (S1) 4- Good- PT-OP-Q Treatments Start: 02/12/23 16:06 Freq: Status: Active Protocol: Document 03/08/23 12:25 NBM (Rec: 03/08/23 13:35 [facility] [id number]) Cardio Equipment Recumbent Stepper (Sci-Fit) Duration (Minutes) 6 Resistance 8 Seat Position 13 Gait Training Gait Activity Trekking poles Description ambulating with inContactkking pole Device Used unilateral RUE Level of Assistance SBA Surface carpet, tile Treatment Focus vc upright posture, sequencing , shorter distance w/ AD, focal point Manual Therapy Treatment Manual Techniques Hip Flexor stretch Type manual stretch Body Location [place] hip flexors Body Position Sidelying Reps/Duration 2x30s ea Comments positive feedback response. Neuro Re-Education Treatment Other Activities Camacho Details Camacho Balance Assessment Comments 43/56 PT-OP-T Assessment and Plan Start: 02/12/23 16:06 Freq: Status: Active Protocol: Document 03/08/23 12:25 NBM (Rec: 03/08/23 13:35 [facility] [id number]) Physical Therapy Assessment Goals Tandem stance Impairment Balance Impairment Pt able to hold tandem stance for 10 seconds, requiring use of hands to achieve position. Short Term Goal (STG) Pt able to hold tandem stance bilaterally for 16 seconds. 03/04/23: Goal progressing. Pt able to hold for 15 seconds bilaterally. STG Duration 03/04/23 Environmental Monitoring Technician Goal (LTG) Pt able to hold tandem stance for 25 seconds bilaterally. LTG Duration 03/26/23 HEP Impairment Pt with limited HEP Environmental Monitoring Technician Goal (LTG) Pt is independent with HEP LTG Duration 03/26/23 Balance Impairment Camacho balance Impairment Camacho balance score of 38/56 Short Term Goal (STG) Pt with improved balance with improved Camacho balance score of 43/56. 03/08/23: Camacho balance score of 43/56 STG Duration 03/04/23 (Goal met 03/08/23: 43/ 56) [facility] Goal (LTG) Pt with improved balance with improved Camacho balance score of 48/56 LTG Duration 03/26/23 Strength Impairment Strength Impairment Pt able to complete 5 STS squats in 34.7 seconds with minimal use of unilateral UE at chair that is 20 inches in height. Short Term Goal (STG) Pt able to complete 5 STS squats in 25 seconds without use of UE at chair that is 20 inches in height. Goal Met: 03/04/23 Pt able to complete in 25 seconds. STG Duration 03/05/23 [facility] Goal (LTG) Pt able to complete 5 STS squats in 18 seconds without use of UE at chair that is 20 inches in height. 6MWT Impairment Endurance Impairment Pt able to ambulate 886 ft with unilateral trekking pole in 6 minutes. Short Term Goal (STG) Pt able to ambulate 1000 ft with unilateral trekking pole in 6 minutes. Goal unmet on 03/04/23. Pt ambulated 804 ft. Pt reports increase in LBP with walking. STG Duration 03/05/23 [facility] Goal (LTG) Pt able to ambulate 1150 ft with unilateral trekking pole in 6 minutes. LTG Duration 03/26/23 Assessment Summary Assessment Treatment focus on Camacho balance assessment today and upright posture w/ gait. Pt reaches Short term Balance goal today 43/56 ([employer] is autopopulating 40/56 incorrectly). She demonstrates consistently flexed trunk despite self-awareness and cueing which may contribute to challenge maintaining single leg stance due to anterior weight shift. Pt reports positive feedback response to manual hip flexor stretch bilaterally, but reports low back pain end of session consistent with forward flexed posture and pt's report of increasing low back pain throughout the day. Physical Therapy Plan Frequency and Duration Frequency of Treatment 2x/Week Duration of treatment (weeks) 6 Plan of Care Start Date 02/12/23 Plan of Care End Date 03/26/23 Therapeutic Interventions Therapeutic Interventions Balance Training,Coordination Training,Gait Training,Home Exercise Program,Manual Therapy,Neuromuscular Re- education,Patient/Caregiver Education,Self-Care/Home Management,Soft Tissue Mobilization,Taping, Therapeutic Activities, Therapeutic Exercises Modalities Cold Pack/Ice Massage,Hot Packs Next Visit Focus/Plan Next Note Type Treatment Note Next Visit Plan progress strength, endurance and balance as tolerated
--- NOTE | 2023-03-08 14:03 | PT.OTN ---
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 Pt with hx of bilateral TKA. Pt had a fall in Dec 2020 and fractured her L patella. She wore a knee immplizer and had surgery, though continues to have difficulty with knee. Pt reports that she locks knee in standing for stability. Pt reports that she walks with walking stick for community ambulation and no AD with household. Pt denies fall since her fall in 2020. Pt reports that she is able to ambulate 2-3 blocks before need to sit because of knee pain and fatigue. Pt reports that she recently got a recumbent bike and plans to use it daily for 20 min. Prior Treatments and Tests Prior PT for knees, back and balance issues Future Testing and Treatments Planned Pt will see her PCP next week and hoping to get low back x- rays PT-OP-C Subjective Start: 02/12/23 16:06 Freq: Status: Active Protocol: Document 03/08/23 12:25 NBM (Rec: 03/08/23 13:35 NBM [id number]) OP-PT Subjective Patient Comments Patient Comments Nevaeh reports her bloodwork results were fine; she has not gotten her X-ray results yet. She has not slept well in three days. Her low back hurts more throughout the day and she has seen pictures of herself that show she is leaning forward even though she is trying to stand upright . PT-OP-D Balance Start: 02/12/23 16:06 Freq: Status: Active Protocol: Document 03/08/23 12:25 NBM (Rec: 03/08/23 13:35 NBM [id number]) Camacho Balance Assessment Evaluation Sitting to Standing Ability Independent w/Hands Unsupported Stance Safely- 2 minutes Sitting Unsupported, Feet on Floor Safely- 2 minutes Standing to Sitting Ability Safely, Minimal Hand Use Transfer Ability Safely, Hand Use Unsupported Stance- Eyes Closed Supervision, 10 seconds Unsupported Stance- Eyes Open Supervision to maintain Reaching Forward Standing Confidently, 10 inches Pick- Up Object From Floor Independent/Safe Look Behind Shoulder - Standing Shifts Weight Well Turning 360 Degrees Turns slowly, but safely Unsupported Stance, Alternating Feet on 4 Steps w/Supervision Stair Unsupported Tandem Stance Small Step- 30 seconds Unilateral Leg Stance Lifts Leg/Unable to Hold Total Score Camacho Total Score (out of 56 points) 43 Camacho Impairment Rating 20 to 39% Impaired (Score 34- 44) PT-OP-E Functional Tests Start: 02/12/23 16:06 Freq: Status: Active Protocol: Document 03/04/23 14:18 AM (Rec: 03/04/23 15:11 AM [id number]) Functional Tests 6 Minute Walk Test Distance 810 Device Used unilateral trekking pole Five Times Sit to Stand Test Score 25 PT-OP-G Mobility & Gait Start: 02/12/23 16:06 Freq: Status: Active Protocol: Document 02/25/23 13:31 AM (Rec: 02/25/23 14:18 AM [id number]) OP Gait Assessment Gait Gait Assistance Required: Independent Gait Deviations General Gait Pattern Antalgic Factors Limiting Gait Function Factors Limiting Gait Function Decreased Strength,Pain,Poor Balance Comments Gait Comments Pt ambulates with unilateral trekking pole. PT-OP-J Posture/Palpation/Skin Start: 02/12/23 16:06 Freq: Status: Active Protocol: Document 02/12/23 16:07 AM (Rec: 02/12/23 17:26 AM [id number]) Posture Evaluation Position Standing L-Spine Posture Flexed Pelvis Posture Anteriorly Tilted PT-OP-M Strength Start: 02/12/23 16:06 Freq: Status: Active Protocol: Document 02/12/23 16:07 AM (Rec: 02/12/23 17:26 AM [id number]) Hip Strength Hip Manual Muscle Testing Left Flexion (L2) 4- Good- Abduction 4- Good- Adduction 4- Good- Right Flexion (L2) 4- Good- Abduction 4- Good- Adduction 4- Good- Knee Strength Knee Manual Muscle Testing Left Flexion (S2) 4- Good- Extension (L3) 3+ Fair+ Right Flexion (S2) 4- Good- Extension (L3) 4- Good- Ankle/Foot Strength Ankle and Foot Manual Muscle Testing Left Dorsiflexion (L4) 4- Good- Plantarflexion (S1) 4- Good- Right Dorsiflexion (L4) 4- Good- Plantarflexion (S1) 4- Good- PT-OP-Q Treatments Start: 02/12/23 16:06 Freq: Status: Active Protocol: Document 03/08/23 12:25 NBM (Rec: 03/08/23 13:35 [facility] [id number]) Cardio Equipment Recumbent Stepper (Sci-Fit) Duration (Minutes) 6 Resistance 8 Seat Position 13 Gait Training Gait Activity Trekking poles Description ambulating with trekking pole Device Used unilateral RUE Level of Assistance SBA Surface carpet, tile Treatment Focus vc upright posture, sequencing , shorter distance w/ AD, focal point Manual Therapy Treatment Manual Techniques Hip Flexor stretch Type manual stretch Body Location cinthia hip flexors Body Position Sidelying Reps/Duration 2x30s ea Comments positive feedback response. Neuro Re-Education Treatment Other Activities Camacho Details Camacho Balance Assessment Comments 43/56 PT-OP-T Assessment and Plan Start: 02/12/23 16:06 Freq: Status: Active Protocol: Document 03/08/23 12:25 NBM (Rec: 03/08/23 13:35 [facility] [id number]) Physical Therapy Assessment Goals Tandem stance Impairment Balance Impairment Pt able to hold tandem stance for 10 seconds, requiring use of hands to achieve position. Short Term Goal (STG) Pt able to hold tandem stance bilaterally for 16 seconds. 03/04/23: Goal progressing. Pt able to hold for 15 seconds bilaterally. STG Duration 03/04/23 Mcfp Goal (LTG) Pt able to hold tandem stance for 25 seconds bilaterally. LTG Duration 03/26/23 HEP Impairment Pt with limited HEP Commercial Retoucher Goal (LTG) Pt is independent with HEP LTG Duration 03/26/23 Balance Impairment Camacho balance Impairment Camacho balance score of 38/56 Short Term Goal (STG) Pt with improved balance with improved Camacho balance score of 43/56. 03/08/23: Camacho balance score of 43/56 STG Duration 03/04/23 (Goal met 03/08/23: 43/ 56) Commercial Retoucher Goal (LTG) Pt with improved balance with improved Camacho balance score of 48/56 LTG Duration 03/26/23 Strength Impairment Strength Impairment Pt able to complete 5 STS squats in 34.7 seconds with minimal use of unilateral UE at chair that is 20 inches in height. Short Term Goal (STG) Pt able to complete 5 STS squats in 25 seconds without use of UE at chair that is 20 inches in height. Goal Met: 03/04/23 Pt able to complete in 25 seconds. STG Duration 03/05/23 Mcfp Goal (LTG) Pt able to complete 5 STS squats in 18 seconds without use of UE at chair that is 20 inches in height. 6MWT Impairment Endurance Impairment Pt able to ambulate 886 ft with unilateral trekking pole in 6 minutes. Short Term Goal (STG) Pt able to ambulate 1000 ft with unilateral trekking pole in 6 minutes. Goal unmet on 03/04/23. Pt ambulated 804 ft. Pt reports increase in LBP with walking. STG Duration 03/05/23 Commercial Retoucher Goal (LTG) Pt able to ambulate 1150 ft with unilateral trekking pole in 6 minutes. LTG Duration 03/26/23 Assessment Summary Assessment Treatment focus on Camacho balance assessment today and upright posture w/ gait. Pt reaches Short term Balance goal today 43/56. She demonstrates consistently flexed trunk despite self- awareness and cueing which may contribute to challenge maintaining single leg stance due to anterior weight shift. Pt reports positive feedback response to manual hip flexor stretch bilaterally, but reports low back pain end of session consistent with forward flexed posture and pt' s report of increasing low back pain throughout the day. Physical Therapy Plan Frequency and Duration Frequency of Treatment 2x/Week Duration of treatment (weeks) 6 Plan of Care Start Date 02/12/23 Plan of Care End Date 03/26/23 Therapeutic Interventions Therapeutic Interventions Balance Training,Coordination Training,Gait Training,Home Exercise Program,Manual Therapy,Neuromuscular Re- education,Patient/Caregiver Education,Self-Care/Home Management,Soft Tissue Mobilization,Taping, Therapeutic Activities, Therapeutic Exercises Modalities Cold Pack/Ice Massage,Hot Packs Next Visit Focus/Plan Next Note Type Treatment Note Next Visit Plan progress strength, endurance and balance as tolerated
--- NOTE | 2023-03-16 13:33 | PT.OTN ---
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 Pt with hx of bilateral TKA. Pt had a fall in Dec 2020 and fractured her L patella. She wore a knee immplizer and had surgery, though continues to have difficulty with knee. Pt reports that she locks knee in standing for stability. Pt reports that she walks with walking stick for community ambulation and no AD with household. Pt denies fall since her fall in 2020. Pt reports that she is able to ambulate 2-3 blocks before need to sit because of knee pain and fatigue. Pt reports that she recently got a recumbent bike and plans to use it daily for 20 min. Prior Treatments and Tests Prior PT for knees, back and balance issues Future Testing and Treatments Planned Pt will see her PCP next week and hoping to get low back x- rays PT-OP-C Subjective Start: 02/12/23 16:06 Freq: Status: Active Protocol: Document 03/16/23 13:33 AM (Rec: 03/16/23 16:05 AM [id number]) OP-PT Subjective Patient Comments Patient Comments Pt reports that she has not gotten her x-ray results back, though will be meeting with her provider tomorrow. Pt reports that she has been biking every day. PT-OP-D Balance Start: 02/12/23 16:06 Freq: Status: Active Protocol: Document 03/08/23 12:25 NBM (Rec: 03/08/23 13:35 [facility] [id number]) Camacho Balance Assessment Evaluation Sitting to Standing Ability Independent w/Hands Unsupported Stance Safely- 2 minutes Sitting Unsupported, Feet on Floor Safely- 2 minutes Standing to Sitting Ability Safely, Minimal Hand Use Transfer Ability Safely, Hand Use Unsupported Stance- Eyes Closed Supervision, 10 seconds Unsupported Stance- Eyes Open Supervision to maintain Reaching Forward Standing Confidently, 10 inches Pick- Up Object From Floor Independent/Safe Look Behind Shoulder - Standing Shifts Weight Well Turning 360 Degrees Turns slowly, but safely Unsupported Stance, Alternating Feet on 4 Steps w/Supervision Stair Unsupported Tandem Stance Small Step- 30 seconds Unilateral Leg Stance Lifts Leg/Unable to Hold Total Score Camacho Total Score (out of 56 points) 43 Camacho Impairment Rating 20 to 39% Impaired (Score 34- 44) PT-OP-E Functional Tests Start: 02/12/23 16:06 Freq: Status: Active Protocol: Document 03/04/23 14:18 AM (Rec: 03/04/23 15:11 AM [id number]) Functional Tests 6 Minute Walk Test Distance 810 Device Used unilateral trekking pole Five Times Sit to Stand Test Score 25 PT-OP-G Mobility & Gait Start: 02/12/23 16:06 Freq: Status: Active Protocol: Document 02/25/23 13:31 AM (Rec: 02/25/23 14:18 AM [id number]) OP Gait Assessment Gait Gait Assistance Required: Independent Gait Deviations General Gait Pattern Antalgic Factors Limiting Gait Function Factors Limiting Gait Function Decreased Strength,Pain,Poor Balance Comments Gait Comments Pt ambulates with unilateral trekking pole. PT-OP-J Posture/Palpation/Skin Start: 02/12/23 16:06 Freq: Status: Active Protocol: Document 02/12/23 16:07 AM (Rec: 02/12/23 17:26 AM [id number]) Posture Evaluation Position Standing L-Spine Posture Flexed Pelvis Posture Anteriorly Tilted PT-OP-M Strength Start: 02/12/23 16:06 Freq: Status: Active Protocol: Document 02/12/23 16:07 AM (Rec: 02/12/23 17:26 AM [id number]) Hip Strength Hip Manual Muscle Testing Left Flexion (L2) 4- Good- Abduction 4- Good- Adduction 4- Good- Right Flexion (L2) 4- Good- Abduction 4- Good- Adduction 4- Good- Knee Strength Knee Manual Muscle Testing Left Flexion (S2) 4- Good- Extension (L3) 3+ Fair+ Right Flexion (S2) 4- Good- Extension (L3) 4- Good- Ankle/Foot Strength Ankle and Foot Manual Muscle Testing Left Dorsiflexion (L4) 4- Good- Plantarflexion (S1) 4- Good- Right Dorsiflexion (L4) 4- Good- Plantarflexion (S1) 4- Good- PT-OP-Q Treatments Start: 02/12/23 16:06 Freq: Status: Active Protocol: Document 03/16/23 13:33 AM (Rec: 03/16/23 16:05 AM [id number]) Cardio Equipment Recumbent Stepper (Sci-Fit) Duration (Minutes) 6 Resistance 8 Seat Position 13 Gym Equipment Shuttle Recovery Unilateral Squats Details corrections in LE alignment required Resistance 50#, (2 navy) Reps/Time x1 min ea LE Bilateral Squats Details Band at knees to improve alignment, decrease valgus Resistance 75# (3 navy) Reps/Time 2x1 min Therapeutic Exercises Standing Exercises Hip hinge Standing Exercise Name Using trekking pole on back and on LE (deadlift form) Reps/Minutes 2x10 Comments cues for increased hip extension at top of motion Standing posture back to wall Reps/Minutes 2x1 min Comments Cues for shoulders back, feet close to wall and gentle chin tuck Gait Training Gait Activity Trekking poles Description ambulating with trekking pole Device Used unilateral RUE Level of Assistance SBA Surface carpet, tile Treatment Focus vc upright posture, sequencing , shorter distance w/ AD, focal point Self-Care/Home Management Treatment Education Patient Education Home Exercise Program Other Education HEP updated: wall posture, BKFO, standing hip abduction with peach band (sit to put band on), chair squat at bed, [facility] PT-OP-T Assessment and Plan Start: 02/12/23 16:06 Freq: Status: Active Protocol: Document 03/16/23 13:33 AM (Rec: 03/16/23 16:05 AM [id number]) Physical Therapy Assessment Impairments Impairments Activity Tolerance,Balance, Coordination,Functional Activities,Functional Mobility ,Gait,Pain,Posture,ROM,Soft Tissue Mobility,Strength, Transfers Goals Tandem stance Impairment Balance Impairment Pt able to hold tandem stance for 10 seconds, requiring use of hands to achieve position. Short Term Goal (STG) Pt able to hold tandem stance bilaterally for 16 seconds. 03/04/23: Goal progressing. Pt able to hold for 15 seconds bilaterally. STG Duration 03/04/23 Detention Goal (LTG) Pt able to hold tandem stance for 25 seconds bilaterally. LTG Duration 03/26/23 HEP Impairment Pt with limited HEP Detention Goal (LTG) Pt is independent with HEP LTG Duration 03/26/23 Balance Impairment Camacho balance Impairment Camacho balance score of 38/56 Short Term Goal (STG) Pt with improved balance with improved Camacho balance score of 43/56. 03/08/23: Camacho balance score of 43/56 STG Duration 03/04/23 (Goal met 03/08/23: 43/ 56) Tester Wafer Substrate Goal (LTG) Pt with improved balance with improved Camacho balance score of 48/56 LTG Duration 03/26/23 Strength Impairment Strength Impairment Pt able to complete 5 STS squats in 34.7 seconds with minimal use of unilateral UE at chair that is 20 inches in height. Short Term Goal (STG) Pt able to complete 5 STS squats in 25 seconds without use of UE at chair that is 20 inches in height. Goal Met: 03/04/23 Pt able to complete in 25 seconds. STG Duration 03/05/23 Detention Goal (LTG) Pt able to complete 5 STS squats in 18 seconds without use of UE at chair that is 20 inches in height. 6MWT Impairment Endurance Impairment Pt able to ambulate 886 ft with unilateral trekking pole in 6 minutes. Short Term Goal (STG) Pt able to ambulate 1000 ft with unilateral trekking pole in 6 minutes. Goal unmet on 03/04/23. Pt ambulated 804 ft. Pt reports increase in LBP with walking. STG Duration 03/05/23 Tester Wafer Substrate Goal (LTG) Pt able to ambulate 1150 ft with unilateral trekking pole in 6 minutes. LTG Duration 03/26/23 Assessment Summary Assessment Pt continues to be challenged with hip extension while standing and during gait. Pt demonstrated improved hip extension in standing with dowel hip hinge. Pt required cueing during gait to decrease dian and increase focus on posture. Pt demonstrated fatigue at quads with shuttle recovery with unilateral squat with cues to prevent knee valgus. Pt will return to PT later this week to continue to progress strength for improved gait pattern and tolerance to functional activities. Physical Therapy Plan Frequency and Duration Frequency of Treatment 2x/Week Duration of treatment (weeks) 6 Plan of Care Start Date 02/12/23 Plan of Care End Date 03/26/23 Therapeutic Interventions Therapeutic Interventions Balance Training,Coordination Training,Gait Training,Home Exercise Program,Manual Therapy,Neuromuscular Re- education,Patient/Caregiver Education,Self-Care/Home Management,Soft Tissue Mobilization,Taping, Therapeutic Activities, Therapeutic Exercises Modalities Cold Pack/Ice Massage,Hot Packs Next Visit Focus/Plan Next Note Type Treatment Note Next Visit Plan progress strength, endurance and balance as tolerated
--- NOTE | 2023-03-19 12:56 | PT.OTN ---
Current Diagnoses Unsteadiness on feet (03/19/23) Other abnormalities of gait and mobility (03/19/23) Weakness (03/19/23) Physical Therapy Treatment Note PT-OP-A Visit Information Start: 02/12/23 16:06 Freq: Status: Active Protocol: Document 03/19/23 10:36 NBM (Rec: 03/19/23 11:34 NBM [id number]) Out-Patient Physical Therapy Visit Information Visit Information Visit Type Treatment Note Visit Start Time 10:34 Visit Stop Time 11:12 Total Visit Minutes 38 Visit Number 9 Number of MANAGER SERVICES Visits 1 Evaluation Information Evaluation Date 02/12/23 Precautions Precautions Lumbar x-ray: 5 non-rib- bearing vertebrae are present. L4-L5 pedicle screw fixation . Hardware is intact. Mild scoliosis. Exaggerated lumbar spine lordosis. Grade 1 anterolisthesis of L4 on L5 and L5 on S1. Grade 1 retrolisthesis of L1 on L2 and L2 on L3. No vertebral body compression fractures. No suspicious bony lesions. PT-OP-B Current Condition Start: 02/12/23 16:06 Freq: Status: Active Protocol: Document 02/25/23 13:31 AM (Rec: 02/25/23 14:17 AM [id number]) Current Condition History of Current Condition Onset Date 2020 Current Complaints weakness, unsteadiness History of Current Condition Pt reports that she would like to improve her balance, strength and endurance. Pt with hx of bilateral TKA. Pt had a fall in Dec 2020 and fractured her L patella. She wore a knee immplizer and had surgery, though continues to have difficulty with knee. Pt reports that she locks knee in standing for stability. Pt reports that she walks with walking stick for community ambulation and no AD with household. Pt denies fall since her fall in 2020. Pt reports that she is able to ambulate 2-3 blocks before need to sit because of knee pain and fatigue. Pt reports that she recently got a recumbent bike and plans to use it daily for 20 min. Prior Treatments and Tests Prior PT for knees, back and balance issues Future Testing and Treatments Planned Pt will see her PCP next week and hoping to get low back x- rays PT-OP-C Subjective Start: 02/12/23 16:06 Freq: Status: Active Protocol: Document 03/19/23 10:36 NBM (Rec: 03/19/23 11:34 NBM [id number]) OP-PT Subjective Patient Comments Patient Comments Pt reports she needs to leave early today. X-ray results say she has some scoliosis and disc slippage. She found out she has high blood pressure and has to watch out for diabetes now. Daughter got her a BP cuff to take it every day. PT-OP-D Balance Start: 02/12/23 16:06 Freq: Status: Active Protocol: Document 03/08/23 12:25 NBM (Rec: 03/08/23 13:35 NBM [id number]) Camacho Balance Assessment Evaluation Sitting to Standing Ability Independent w/Hands Unsupported Stance Safely- 2 minutes Sitting Unsupported, Feet on Floor Safely- 2 minutes Standing to Sitting Ability Safely, Minimal Hand Use Transfer Ability Safely, Hand Use Unsupported Stance- Eyes Closed Supervision, 10 seconds Unsupported Stance- Eyes Open Supervision to maintain Reaching Forward Standing Confidently, 10 inches Pick- Up Object From Floor Independent/Safe Look Behind Shoulder - Standing Shifts Weight Well Turning 360 Degrees Turns slowly, but safely Unsupported Stance, Alternating Feet on 4 Steps w/Supervision Stair Unsupported Tandem Stance Small Step- 30 seconds Unilateral Leg Stance Lifts Leg/Unable to Hold Total Score Camacho Total Score (out of 56 points) 43 Camacho Impairment Rating 20 to 39% Impaired (Score 34- 44) PT-OP-E Functional Tests Start: 02/12/23 16:06 Freq: Status: Active Protocol: Document 03/04/23 14:18 AM (Rec: 03/04/23 15:11 AM [id number]) Functional Tests 6 Minute Walk Test Distance 810 Device Used unilateral trekking pole Five Times Sit to Stand Test Score 25 PT-OP-G Mobility & Gait Start: 02/12/23 16:06 Freq: Status: Active Protocol: Document 02/25/23 13:31 AM (Rec: 02/25/23 14:18 AM [id number]) OP Gait Assessment Gait Gait Assistance Required: Independent Gait Deviations General Gait Pattern Antalgic Factors Limiting Gait Function Factors Limiting Gait Function Decreased Strength,Pain,Poor Balance Comments Gait Comments Pt ambulates with unilateral trekking pole. PT-OP-J Posture/Palpation/Skin Start: 02/12/23 16:06 Freq: Status: Active Protocol: Document 02/12/23 16:07 AM (Rec: 02/12/23 17:26 AM [id number]) Posture Evaluation Position Standing L-Spine Posture Flexed Pelvis Posture Anteriorly Tilted PT-OP-M Strength Start: 02/12/23 16:06 Freq: Status: Active Protocol: Document 02/12/23 16:07 AM (Rec: 02/12/23 17:26 AM [id number]) Hip Strength Hip Manual Muscle Testing Left Flexion (L2) 4- Good- Abduction 4- Good- Adduction 4- Good- Right Flexion (L2) 4- Good- Abduction 4- Good- Adduction 4- Good- Knee Strength Knee Manual Muscle Testing Left Flexion (S2) 4- Good- Extension (L3) 3+ Fair+ Right Flexion (S2) 4- Good- Extension (L3) 4- Good- Ankle/Foot Strength Ankle and Foot Manual Muscle Testing Left Dorsiflexion (L4) 4- Good- Plantarflexion (S1) 4- Good- Right Dorsiflexion (L4) 4- Good- Plantarflexion (S1) 4- Good- PT-OP-Q Treatments Start: 02/12/23 16:06 Freq: Status: Active Protocol: Document 03/19/23 10:36 NBM (Rec: 03/19/23 11:34 NBM [id number]) Cardio Equipment Recumbent Stepper (Sci-Fit) Duration (Minutes) 8 Resistance 8 Seat Position 13 Gym Equipment Shuttle Recovery Unilateral Squats Details corrections in LE alignment required Resistance 50#, (2 new bands) Reps/Time x1 min ea LE Bilateral Heel Raises Details cued not hyperextension L knee Resistance 75# Shuttle Recovery Platform Stable Reps/Time 25 reps Bilateral Squats Details Band at knees to improve alignment, decrease valgus Resistance 75# (3 navy) Reps/Time 2x1 min, cues for slower pacing for eccentric control Therapeutic Exercises Standing Exercises Step-outs Standing Exercise Name resisted lateral stepouts ( multifidi, core) Side bilateral Resistance lvl 1 Tb Reps/Minutes 5 x 3-4 steps ea Comments cues for no trunk rotation shoulder rows Side bilateral Resistance Lvl 1 Tb Reps/Minutes x10 Comments max cue for scapular retraction and form shoulder extension Standing Exercise Name added to HEP Side bilateral Resistance Lvl 1 Tb Reps/Minutes x10 Comments cues for scapular setting and posture Gait Training Gait Activity [employer] Description ambulating with trekking pole Device Used unilateral RUE Level of Assistance SBA Surface carpet, tile Treatment Focus vc upright posture, sequencing , shorter distance w/ AD, focal point Comments around clinic Self-Care/Home Management Treatment Education Other Education Added to HEP: resisted shoulder extension and resisted stepouts - HO to be given next visit due to time constraint. PT-OP-T Assessment and Plan Start: 02/12/23 16:06 Freq: Status: Active Protocol: Document 03/19/23 10:36 [facility] (Rec: 03/19/23 11:34 [facility] [id number]) Physical Therapy Assessment Goals Tandem stance Impairment Balance Impairment Pt able to hold tandem stance for 10 seconds, requiring use of hands to achieve position. Short Term Goal (STG) Pt able to hold tandem stance bilaterally for 16 seconds. 03/04/23: Goal progressing. Pt able to hold for 15 seconds bilaterally. STG Duration 03/04/23 [facility] Goal (LTG) Pt able to hold tandem stance for 25 seconds bilaterally. LTG Duration 03/26/23 HEP Impairment Pt with limited HEP Corporate Associate Attorney Goal (LTG) Pt is independent with HEP LTG Duration 03/26/23 Balance Impairment Camacho balance Impairment Camacho balance score of 38/56 Short Term Goal (STG) Pt with improved balance with improved Camacho balance score of 43/56. 03/08/23: Camacho balance score of 43/56 STG Duration 03/04/23 (Goal met 03/08/23: 43/ 56) Corporate Associate Attorney Goal (LTG) Pt with improved balance with improved Camacho balance score of 48/56 LTG Duration 03/26/23 Strength Impairment Strength Impairment Pt able to complete 5 STS squats in 34.7 seconds with minimal use of unilateral UE at chair that is 20 inches in height. Short Term Goal (STG) Pt able to complete 5 STS squats in 25 seconds without use of UE at chair that is 20 inches in height. Goal Met: 03/04/23 Pt able to complete in 25 seconds. STG Duration 03/05/23 [facility] Goal (LTG) Pt able to complete 5 STS squats in 18 seconds without use of UE at chair that is 20 inches in height. 6MWT Impairment Endurance Impairment Pt able to ambulate 886 ft with unilateral trekking pole in 6 minutes. Short Term Goal (STG) Pt able to ambulate 1000 ft with unilateral trekking pole in 6 minutes. Goal unmet on 03/04/23. Pt ambulated 804 ft. Pt reports increase in LBP with walking. STG Duration 03/05/23 [facility] Goal (LTG) Pt able to ambulate 1150 ft with unilateral trekking pole in 6 minutes. LTG Duration 03/26/23 Assessment Summary Assessment Pt's lumbar x-ray shows no compression fractures, and impression of mild scoliosis and spondylolisthesis. Treament focus on LE and core strengthening. Pt is challenged appropriately with resisted step-outs requiring cues for no trunk rotation. She is unable to demonstrate proper form with resisted shoulder rows so not added to HEP today. Nevaeh continues to require cues for smaller arm swing with trekking pole and upright posture. Added to HEP: resisted shoulder extension and resisted stepouts - HO to be given next visit due to time constraint. Physical Therapy Plan Frequency and Duration Frequency of Treatment 2x/Week Duration of treatment (weeks) 6 Plan of Care Start Date 02/12/23 Plan of Care End Date 03/26/23 Therapeutic Interventions Therapeutic Interventions Balance Training,Coordination Training,Gait Training,Home Exercise Program,Manual Therapy,Neuromuscular Re- education,Patient/Caregiver Education,Self-Care/Home Management,Soft Tissue Mobilization,Taping, Therapeutic Activities, Therapeutic Exercises Modalities Cold Pack/Ice Massage,Hot Packs Next Visit Focus/Plan Next Note Type Treatment Note Next Visit Plan progress strength, endurance and balance as tolerated
--- NOTE | 2023-03-22 12:43 | PT.OTN ---
Current Diagnoses Unsteadiness on feet (03/22/23) Other abnormalities of gait and mobility (03/22/23) Weakness (03/22/23) Physical Therapy Treatment Note PT-OP-A Visit Information Start: 02/12/23 16:06 Freq: Status: Active Protocol: Document 03/22/23 11:31 NBM (Rec: 03/22/23 12:17 NBM [id number]) Out-Patient Physical Therapy Visit Information Visit Information Visit Type Treatment Note Visit Start Time 11:31 Visit Stop Time 12:13 Total Visit Minutes 42 Visit Number 10 Number of DOUBLE END CHUCKING MACHINE OPERATOR Visits 2 Evaluation Information Evaluation Date 02/12/23 Precautions Precautions Lumbar x-ray: Mild scoliosis. Exaggerated lumbar spine lordosis. Grade 1 anterolisthesis of L4 on L5 and L5 on S1. Grade 1 retrolisthesis of L1 on L2 and L2 on L3. PT-OP-B Current Condition Start: 02/12/23 16:06 Freq: Status: Active Protocol: Document 02/25/23 13:31 AM (Rec: 02/25/23 14:17 AM [id number]) Current Condition History of Current Condition Onset Date 2020 Current Complaints weakness, unsteadiness History of Current Condition Pt reports that she would like to improve her balance, strength and endurance. Pt with hx of bilateral TKA. Pt had a fall in Dec 2020 and fractured her L patella. She wore a knee immplizer and had surgery, though continues to have difficulty with knee. Pt reports that she locks knee in standing for stability. Pt reports that she walks with walking stick for community ambulation and no AD with household. Pt denies fall since her fall in 2020. Pt reports that she is able to ambulate 2-3 blocks before need to sit because of knee pain and fatigue. Pt reports that she recently got a recumbent bike and plans to use it daily for 20 min. Prior Treatments and Tests Prior PT for knees, back and balance issues Future Testing and Treatments Planned Pt will see her PCP next week and hoping to get low back x- rays PT-OP-C Subjective Start: 02/12/23 16:06 Freq: Status: Active Protocol: Document 03/22/23 11:31 NBM (Rec: 03/22/23 12:17 NBM [id number]) OP-PT Subjective Patient Comments Patient Comments Nevaeh reports she slept well yesterday. PT-OP-D Balance Start: 02/12/23 16:06 Freq: Status: Active Protocol: Document 03/08/23 12:25 NBM (Rec: 03/08/23 13:35 NBM [id number]) Camacho Balance Assessment Evaluation Sitting to Standing Ability Independent w/Hands Unsupported Stance Safely- 2 minutes Sitting Unsupported, Feet on Floor Safely- 2 minutes Standing to Sitting Ability Safely, Minimal Hand Use Transfer Ability Safely, Hand Use Unsupported Stance- Eyes Closed Supervision, 10 seconds Unsupported Stance- Eyes Open Supervision to maintain Reaching Forward Standing Confidently, 10 inches Pick- Up Object From Floor Independent/Safe Look Behind Shoulder - Standing Shifts Weight Well Turning 360 Degrees Turns slowly, but safely Unsupported Stance, Alternating Feet on 4 Steps w/Supervision Stair Unsupported Tandem Stance Small Step- 30 seconds Unilateral Leg Stance Lifts Leg/Unable to Hold Total Score Camacho Total Score (out of 56 points) 43 Camacho Impairment Rating 20 to 39% Impaired (Score 34- 44) PT-OP-E Functional Tests Start: 02/12/23 16:06 Freq: Status: Active Protocol: Document 03/04/23 14:18 AM (Rec: 03/04/23 15:11 AM [id number]) Functional Tests 6 Minute Walk Test Distance 810 Device Used unilateral trekking pole Five Times Sit to Stand Test Score 25 PT-OP-G Mobility & Gait Start: 02/12/23 16:06 Freq: Status: Active Protocol: Document 02/25/23 13:31 AM (Rec: 02/25/23 14:18 AM [id number]) OP Gait Assessment Gait Gait Assistance Required: Independent Gait Deviations General Gait Pattern Antalgic Factors Limiting Gait Function Factors Limiting Gait Function Decreased Strength,Pain,Poor Balance Comments Gait Comments Pt ambulates with unilateral trekking pole. PT-OP-J Posture/Palpation/Skin Start: 02/12/23 16:06 Freq: Status: Active Protocol: Document 02/12/23 16:07 AM (Rec: 02/12/23 17:26 AM [id number]) Posture Evaluation Position Standing L-Spine Posture Flexed Pelvis Posture Anteriorly Tilted PT-OP-M Strength Start: 02/12/23 16:06 Freq: Status: Active Protocol: Document 02/12/23 16:07 AM (Rec: 02/12/23 17:26 AM [id number]) Hip Strength Hip Manual Muscle Testing Left Flexion (L2) 4- Good- Abduction 4- Good- Adduction 4- Good- Right Flexion (L2) 4- Good- Abduction 4- Good- Adduction 4- Good- Knee Strength Knee Manual Muscle Testing Left Flexion (S2) 4- Good- Extension (L3) 3+ Fair+ Right Flexion (S2) 4- Good- Extension (L3) 4- Good- Ankle/Foot Strength Ankle and Foot Manual Muscle Testing Left Dorsiflexion (L4) 4- Good- Plantarflexion (S1) 4- Good- Right Dorsiflexion (L4) 4- Good- Plantarflexion (S1) 4- Good- PT-OP-Q Treatments Start: 02/12/23 16:06 Freq: Status: Active Protocol: Document 03/22/23 11:31 NBM (Rec: 03/22/23 12:17 NB [id number]) Cardio Equipment Recumbent Stepper (Sci-Fit) Duration (Minutes) 6 Resistance 8 Seat Position 13 Gym Equipment Cable Column (Body Solid) Hip Abduction Details legs position 5 Resistance 40#>30# Reps/Time 40#x5, 30# 2x15 Hip Adduction Details legs position 3 Resistance 40# Reps/Time 2x15 Shuttle Recovery Unilateral Squats Details corrections in LE alignment required Resistance 50#, (2 new bands) Reps/Time x1 min ea LE Bilateral Heel Raises Details cued eccentric control Resistance 75# Shuttle Recovery Platform Stable Reps/Time 25 reps Bilateral Squats Resistance 75# (3 navy) Reps/Time 2x1 min, cues for slower pacing for eccentric control Sport Cord resisted gait f/b/side stepping Exercise Details w/ trekking pole RUE glut/ abductor facilitation Cord/Resistance green Reps/Duration 10 reps - fwd with eccentric backward Comments cued for posture and appropriate weight shift Gait Training Gait Activity Trekking poles Description ambulating with trekking pole Device Used unilateral RUE Level of Assistance SBA Surface carpet, tile Distance/Duration 380' Treatment Focus vc sequencing, shorter distance w/ AD, pacing, upright posture Comments around clinic Neuro Re-Education Treatment Balance Activities SLS Details Bam 1. SLS 2.EO/EC 3. head turns Surface firm Equipment // bars Reps/Duration x30s ea Comments 2 CUTTER GAS>1 finger touch w/ SLS. 1 CUTTER GAS w/ EO/EC and head turns. PT-OP-T Assessment and Plan Start: 02/12/23 16:06 Freq: Status: Active Protocol: Document 03/22/23 11:31 [facility] (Rec: 03/22/23 12:17 [facility] [id number]) Physical Therapy Assessment Goals Tandem stance Impairment Balance Impairment Pt able to hold tandem stance for 10 seconds, requiring use of hands to achieve position. Short Term Goal (STG) Pt able to hold tandem stance bilaterally for 16 seconds. 03/04/23: Goal progressing. Pt able to hold for 15 seconds bilaterally. STG Duration 03/04/23 [employer] Operator Goal (LTG) Pt able to hold tandem stance for 25 seconds bilaterally. LTG Duration 03/26/23 HEP Impairment Pt with limited HEP [employer]ucker Operator Goal (LTG) Pt is independent with HEP LTG Duration 03/26/23 Balance Impairment Camacho balance Impairment Camacho balance score of 38/56 Short Term Goal (STG) Pt with improved balance with improved Camacho balance score of 43/56. 03/08/23: Camacho balance score of 43/56 STG Duration 03/04/23 (Goal met 03/08/23: 43/ 56) [employer]ucker Operator Goal (LTG) Pt with improved balance with improved Camacho balance score of 48/56 LTG Duration 03/26/23 Strength Impairment Strength Impairment Pt able to complete 5 STS squats in 34.7 seconds with minimal use of unilateral UE at chair that is 20 inches in height. Short Term Goal (STG) Pt able to complete 5 STS squats in 25 seconds without use of UE at chair that is 20 inches in height. Goal Met: 03/04/23 Pt able to complete in 25 seconds. STG Duration 03/05/23 [employer]ucker Operator Goal (LTG) Pt able to complete 5 STS squats in 18 seconds without use of UE at chair that is 20 inches in height. 6MWT Impairment Endurance Impairment Pt able to ambulate 886 ft with unilateral trekking pole in 6 minutes. Short Term Goal (STG) Pt able to ambulate 1000 ft with unilateral trekking pole in 6 minutes. Goal unmet on 03/04/23. Pt ambulated 804 ft. Pt reports increase in LBP with walking. STG Duration 03/05/23 [employer]ucker Operator Goal (LTG) Pt able to ambulate 1150 ft with unilateral trekking pole in 6 minutes. LTG Duration 03/26/23 Assessment Summary Assessment Treatment focus on LE strengthening, sequencing with trekking pole in RUE, and balance. Pt requires initial cues for sequencing but improves today with slower pacing and cueing but requires focus with inconsistent carryover observed end of session. Pt is better able to control LE alignment on Shuttle Recovery without cueing or band above knees for biofeedback. She remains challenged w/ single leg balance but progresses trials from 2 CUTTER GAS with eyes open to 1 finger touch. Physical Therapy Plan Frequency and Duration Frequency of Treatment 2x/Week Duration of treatment (weeks) 6 Plan of Care Start Date 02/12/23 Plan of Care End Date 03/26/23 Therapeutic Interventions Therapeutic Interventions Balance Training,Coordination Training,Gait Training,Home Exercise Program,Manual Therapy,Neuromuscular Re- education,Patient/Caregiver Education,Self-Care/Home Management,Soft Tissue Mobilization,Taping, Therapeutic Activities, Therapeutic Exercises Modalities Cold Pack/Ice Massage,Hot Packs Next Visit Focus/Plan Next Note Type Treatment Note Next Visit Plan progress strength, endurance and balance as tolerated
--- NOTE | 2023-03-23 11:59 | PT.OTN ---
Current Diagnoses Unsteadiness on feet (03/22/23) Other abnormalities of gait and mobility (03/22/23) Weakness (03/22/23) Physical Therapy Treatment Note PT-OP-A Visit Information Start: 02/12/23 16:06 Freq: Status: Active Protocol: Document 03/22/23 11:31 NBM (Rec: 03/22/23 12:17 NBM [id number]) Out-Patient Physical Therapy Visit Information Visit Information Visit Type Treatment Note Visit Start Time 11:31 Visit Stop Time 12:13 Total Visit Minutes 42 Visit Number 10 Number of RAVELER Visits 2 Evaluation Information Evaluation Date 02/12/23 Precautions Precautions Lumbar x-ray: Mild scoliosis. Exaggerated lumbar spine lordosis. Grade 1 anterolisthesis of L4 on L5 and L5 on S1. Grade 1 retrolisthesis of L1 on L2 and L2 on L3. PT-OP-B Current Condition Start: 02/12/23 16:06 Freq: Status: Active Protocol: Document 02/25/23 13:31 AM (Rec: 02/25/23 14:17 AM [id number]) Current Condition History of Current Condition Onset Date 2020 Current Complaints weakness, unsteadiness History of Current Condition Pt reports that she would like to improve her balance, strength and endurance. Pt with hx of bilateral TKA. Pt had a fall in Dec 2020 and fractured her L patella. She wore a knee immplizer and had surgery, though continues to have difficulty with knee. Pt reports that she locks knee in standing for stability. Pt reports that she walks with walking stick for community ambulation and no AD with household. Pt denies fall since her fall in 2020. Pt reports that she is able to ambulate 2-3 blocks before need to sit because of knee pain and fatigue. Pt reports that she recently got a recumbent bike and plans to use it daily for 20 min. Prior Treatments and Tests Prior PT for knees, back and balance issues Future Testing and Treatments Planned Pt will see her PCP next week and hoping to get low back x- rays PT-OP-C Subjective Start: 02/12/23 16:06 Freq: Status: Active Protocol: Document 03/22/23 11:31 NBM (Rec: 03/22/23 12:17 NBM [id number]) OP-PT Subjective Patient Comments Patient Comments Nevaeh reports she slept well yesterday. PT-OP-D Balance Start: 02/12/23 16:06 Freq: Status: Active Protocol: Document 03/08/23 12:25 NBM (Rec: 03/08/23 13:35 NBM [id number]) Camacho Balance Assessment Evaluation Sitting to Standing Ability Independent w/Hands Unsupported Stance Safely- 2 minutes Sitting Unsupported, Feet on Floor Safely- 2 minutes Standing to Sitting Ability Safely, Minimal Hand Use Transfer Ability Safely, Hand Use Unsupported Stance- Eyes Closed Supervision, 10 seconds Unsupported Stance- Eyes Open Supervision to maintain Reaching Forward Standing Confidently, 10 inches Pick- Up Object From Floor Independent/Safe Look Behind Shoulder - Standing Shifts Weight Well Turning 360 Degrees Turns slowly, but safely Unsupported Stance, Alternating Feet on 4 Steps w/Supervision Stair Unsupported Tandem Stance Small Step- 30 seconds Unilateral Leg Stance Lifts Leg/Unable to Hold Total Score Camacho Total Score (out of 56 points) 43 Camacho Impairment Rating 20 to 39% Impaired (Score 34- 44) PT-OP-E Functional Tests Start: 02/12/23 16:06 Freq: Status: Active Protocol: Document 03/04/23 14:18 AM (Rec: 03/04/23 15:11 AM [id number]) Functional Tests 6 Minute Walk Test Distance 810 Device Used unilateral trekking pole Five Times Sit to Stand Test Score 25 PT-OP-G Mobility & Gait Start: 02/12/23 16:06 Freq: Status: Active Protocol: Document 02/25/23 13:31 AM (Rec: 02/25/23 14:18 AM [id number]) OP Gait Assessment Gait Gait Assistance Required: Independent Gait Deviations General Gait Pattern Antalgic Factors Limiting Gait Function Factors Limiting Gait Function Decreased Strength,Pain,Poor Balance Comments Gait Comments Pt ambulates with unilateral trekking pole. PT-OP-J Posture/Palpation/Skin Start: 02/12/23 16:06 Freq: Status: Active Protocol: Document 02/12/23 16:07 AM (Rec: 02/12/23 17:26 AM [id number]) Posture Evaluation Position Standing L-Spine Posture Flexed Pelvis Posture Anteriorly Tilted PT-OP-M Strength Start: 02/12/23 16:06 Freq: Status: Active Protocol: Document 02/12/23 16:07 AM (Rec: 02/12/23 17:26 AM [id number]) Hip Strength Hip Manual Muscle Testing Left Flexion (L2) 4- Good- Abduction 4- Good- Adduction 4- Good- Right Flexion (L2) 4- Good- Abduction 4- Good- Adduction 4- Good- Knee Strength Knee Manual Muscle Testing Left Flexion (S2) 4- Good- Extension (L3) 3+ Fair+ Right Flexion (S2) 4- Good- Extension (L3) 4- Good- Ankle/Foot Strength Ankle and Foot Manual Muscle Testing Left Dorsiflexion (L4) 4- Good- Plantarflexion (S1) 4- Good- Right Dorsiflexion (L4) 4- Good- Plantarflexion (S1) 4- Good- PT-OP-Q Treatments Start: 02/12/23 16:06 Freq: Status: Active Protocol: Document 03/22/23 11:31 NBM (Rec: 03/22/23 12:17 NB [id number]) Cardio Equipment Recumbent Stepper (Sci-Fit) Duration (Minutes) 6 Resistance 8 Seat Position 13 Gym Equipment Cable Column (Body Solid) Hip Abduction Details legs position 5 Resistance 40#>30# Reps/Time 40#x5, 30# 2x15 Hip Adduction Details legs position 3 Resistance 40# Reps/Time 2x15 Shuttle Recovery Unilateral Squats Details corrections in LE alignment required Resistance 50#, (2 new bands) Reps/Time x1 min ea LE Bilateral Heel Raises Details cued eccentric control Resistance 75# Shuttle Recovery Platform Stable Reps/Time 25 reps Bilateral Squats Resistance 75# (3 navy) Reps/Time 2x1 min, cues for slower pacing for eccentric control Sport Cord resisted gait f/b/side stepping Exercise Details w/ trekking pole RUE glut/ abductor facilitation Cord/Resistance green Reps/Duration 10 reps - fwd with eccentric backward Comments cued for posture and appropriate weight shift Gait Training Gait Activity Trekking poles Description ambulating with trekking pole Device Used unilateral RUE Level of Assistance SBA Surface carpet, tile Distance/Duration 380' Treatment Focus vc sequencing, shorter distance w/ AD, pacing, upright posture Comments around clinic Neuro Re-Education Treatment Balance Activities SLS Details Bam 1. SLS 2.EO/EC 3. head turns Surface firm Equipment // bars Reps/Duration x30s ea Comments 2 FOAM MACHINE OPERATOR>1 finger touch w/ SLS. 1 FOAM MACHINE OPERATOR w/ EO/EC and head turns. PT-OP-T Assessment and Plan Start: 02/12/23 16:06 Freq: Status: Active Protocol: Document 03/22/23 11:31 [facility] (Rec: 03/22/23 12:17 [facility] [id number]) Physical Therapy Assessment Goals Tandem stance Impairment Balance Impairment Pt able to hold tandem stance for 10 seconds, requiring use of hands to achieve position. Short Term Goal (STG) Pt able to hold tandem stance bilaterally for 16 seconds. 03/04/23: Goal progressing. Pt able to hold for 15 seconds bilaterally. STG Duration 03/04/23 Media Marketing Specialist Goal (LTG) Pt able to hold tandem stance for 25 seconds bilaterally. LTG Duration 03/26/23 HEP Impairment Pt with limited HEP Media Marketing Specialist Goal (LTG) Pt is independent with HEP LTG Duration 03/26/23 Balance Impairment Camacho balance Impairment Camacho balance score of 38/56 Short Term Goal (STG) Pt with improved balance with improved Camacho balance score of 43/56. 03/08/23: Camacho balance score of 43/56 STG Duration 03/04/23 (Goal met 03/08/23: 43/ 56) Media Marketing Specialist Goal (LTG) Pt with improved balance with improved Camacho balance score of 48/56 LTG Duration 03/26/23 Strength Impairment Strength Impairment Pt able to complete 5 STS squats in 34.7 seconds with minimal use of unilateral UE at chair that is 20 inches in height. Short Term Goal (STG) Pt able to complete 5 STS squats in 25 seconds without use of UE at chair that is 20 inches in height. Goal Met: 03/04/23 Pt able to complete in 25 seconds. STG Duration 03/05/23 Media Marketing Specialist Goal (LTG) Pt able to complete 5 STS squats in 18 seconds without use of UE at chair that is 20 inches in height. 6MWT Impairment Endurance Impairment Pt able to ambulate 886 ft with unilateral trekking pole in 6 minutes. Short Term Goal (STG) Pt able to ambulate 1000 ft with unilateral trekking pole in 6 minutes. Goal unmet on 03/04/23. Pt ambulated 804 ft. Pt reports increase in LBP with walking. STG Duration 03/05/23 Media Marketing Specialist Goal (LTG) Pt able to ambulate 1150 ft with unilateral trekking pole in 6 minutes. LTG Duration 03/26/23 Assessment Summary Assessment Treatment focus on LE strengthening, sequencing with trekking pole in RUE, and balance. Pt requires initial cues for sequencing but improves today with slower pacing and cueing but requires focus with inconsistent carryover observed end of session. Pt is better able to control LE alignment on Shuttle Recovery without cueing or band above knees for biofeedback. She remains challenged w/ single leg balance but progresses trials from 2 FOAM MACHINE OPERATOR with eyes open to 1 finger touch. Physical Therapy Plan Frequency and Duration Frequency of Treatment 2x/Week Duration of treatment (weeks) 6 Plan of Care Start Date 02/12/23 Plan of Care End Date 03/26/23 Therapeutic Interventions Therapeutic Interventions Balance Training,Coordination Training,Gait Training,Home Exercise Program,Manual Therapy,Neuromuscular Re- education,Patient/Caregiver Education,Self-Care/Home Management,Soft Tissue Mobilization,Taping, Therapeutic Activities, Therapeutic Exercises Modalities Cold Pack/Ice Massage,Hot Packs Next Visit Focus/Plan Next Note Type Treatment Note Next Visit Plan progress strength, endurance and balance as tolerated
--- NOTE | 2023-03-25 17:01 | PT.OTN ---
Current Diagnoses Unsteadiness on feet (03/25/23) Other abnormalities of gait and mobility (03/25/23) Weakness (03/25/23) Physical Therapy Treatment Note PT-OP-A Visit Information Start: 02/12/23 16:06 Freq: Status: Active Protocol: Document 03/25/23 13:49 SW (Rec: 03/25/23 14:43 SW [id number]) Out-Patient Physical Therapy Visit Information Visit Information Visit Type Treatment Note Visit Start Time 13:48 Visit Stop Time 14:30 Total Visit Minutes 42 Visit Number 11 Number of VIDEO PRODUCTION ENGINEER Visits 3 Precautions Precautions Lumbar x-ray: Mild scoliosis. Exaggerated lumbar spine lordosis. Grade 1 anterolisthesis of L4 on L5 and L5 on S1. Grade 1 retrolisthesis of L1 on L2 and L2 on L3. PT-OP-B Current Condition Start: 02/12/23 16:06 Freq: Status: Active Protocol: Document 02/25/23 13:31 AM (Rec: 02/25/23 14:17 AM [id number]) Current Condition History of Current Condition Onset Date 2020 Current Complaints weakness, unsteadiness History of Current Condition Pt reports that she would like to improve her balance, strength and endurance. Pt with hx of bilateral TKA. Pt had a fall in Dec 2020 and fractured her L patella. She wore a knee immplizer and had surgery, though continues to have difficulty with knee. Pt reports that she locks knee in standing for stability. Pt reports that she walks with walking stick for community ambulation and no AD with household. Pt denies fall since her fall in 2020. Pt reports that she is able to ambulate 2-3 blocks before need to sit because of knee pain and fatigue. Pt reports that she recently got a recumbent bike and plans to use it daily for 20 min. Prior Treatments and Tests Prior PT for knees, back and balance issues Future Testing and Treatments Planned Pt will see her PCP next week and hoping to get low back x- rays PT-OP-C Subjective Start: 02/12/23 16:06 Freq: Status: Active Protocol: Document 03/25/23 13:49 SW (Rec: 03/25/23 14:43 SW [id number]) OP-PT Subjective Patient Comments Patient Comments Nevaeh reports feeling good after last session. PT-OP-D Balance Start: 02/12/23 16:06 Freq: Status: Active Protocol: Document 03/08/23 12:25 NB (Rec: 03/08/23 13:35 [facility] [id number]) Camacho Balance Assessment Evaluation Sitting to Standing Ability Independent w/Hands Unsupported Stance Safely- 2 minutes Sitting Unsupported, Feet on Floor Safely- 2 minutes Standing to Sitting Ability Safely, Minimal Hand Use Transfer Ability Safely, Hand Use Unsupported Stance- Eyes Closed Supervision, 10 seconds Unsupported Stance- Eyes Open Supervision to maintain Reaching Forward Standing Confidently, 10 inches Pick- Up Object From Floor Independent/Safe Look Behind Shoulder - Standing Shifts Weight Well Turning 360 Degrees Turns slowly, but safely Unsupported Stance, Alternating Feet on 4 Steps w/Supervision Stair Unsupported Tandem Stance Small Step- 30 seconds Unilateral Leg Stance Lifts Leg/Unable to Hold Total Score Camacho Total Score (out of 56 points) 43 Camacho Impairment Rating 20 to 39% Impaired (Score 34- 44) PT-OP-E Functional Tests Start: 02/12/23 16:06 Freq: Status: Active Protocol: Document 03/04/23 14:18 AM (Rec: 03/04/23 15:11 AM [id number]) Functional Tests 6 Minute Walk Test Distance 810 Device Used unilateral trekking pole Five Times Sit to Stand Test Score 25 PT-OP-G Mobility & Gait Start: 02/12/23 16:06 Freq: Status: Active Protocol: Document 02/25/23 13:31 AM (Rec: 02/25/23 14:18 AM [id number]) OP Gait Assessment Gait Gait Assistance Required: Independent Gait Deviations General Gait Pattern Antalgic Factors Limiting Gait Function Factors Limiting Gait Function Decreased Strength,Pain,Poor Balance Comments Gait Comments Pt ambulates with unilateral trekking pole. PT-OP-J Posture/Palpation/Skin Start: 02/12/23 16:06 Freq: Status: Active Protocol: Document 02/12/23 16:07 AM (Rec: 02/12/23 17:26 AM [id number]) Posture Evaluation Position Standing L-Spine Posture Flexed Pelvis Posture Anteriorly Tilted PT-OP-M Strength Start: 02/12/23 16:06 Freq: Status: Active Protocol: Document 02/12/23 16:07 AM (Rec: 02/12/23 17:26 AM [id number]) Hip Strength Hip Manual Muscle Testing Left Flexion (L2) 4- Good- Abduction 4- Good- Adduction 4- Good- Right Flexion (L2) 4- Good- Abduction 4- Good- Adduction 4- Good- Knee Strength Knee Manual Muscle Testing Left Flexion (S2) 4- Good- Extension (L3) 3+ Fair+ Right Flexion (S2) 4- Good- Extension (L3) 4- Good- Ankle/Foot Strength Ankle and Foot Manual Muscle Testing Left Dorsiflexion (L4) 4- Good- Plantarflexion (S1) 4- Good- Right Dorsiflexion (L4) 4- Good- Plantarflexion (S1) 4- Good- PT-OP-Q Treatments Start: 02/12/23 16:06 Freq: Status: Active Protocol: Document 03/25/23 13:49 SW (Rec: 03/25/23 14:43 SW [id number]) Cardio Equipment Recumbent Stepper (Sci-Fit) Duration (Minutes) 8 Resistance 8 Seat Position 13 Other UE/ LE Gym Equipment Cable Column (Body Solid) Hip Abduction Details legs position 5 Resistance 40#>30# Reps/Time 40#x5, 30# 2x15 Hip Adduction Details legs position 3 Resistance 40# Reps/Time 2x15 Shuttle Recovery Unilateral Squats Details corrections in LE alignment required Resistance 50#, (2 new bands) Shuttle Recovery Platform Stable Reps/Time x1 min ea LE Bilateral Heel Raises Details cued not hyperextension L knee , contact post feedback Resistance 75# Shuttle Recovery Platform Stable Reps/Time 20 reps Bilateral Squats Resistance 75# (3 navy) Reps/Time 2x1 min, cues for slower pacing for eccentric control Sport Cord resisted gait f/b/side stepping Exercise Details w/ trekking pole RUE glut/ abductor facilitation Cord/Resistance green Reps/Duration 10 reps - fwd with eccentric backward Comments cued for posture and appropriate weight shift Neuro Re-Education Treatment Balance Activities Tandem Details Tandem stance Surface stable Equipment // bars SLS Details Bam 1. SLS 2.EO/EC 3. head turns Surface firm Equipment // bars Reps/Duration x30s ea Comments 2 MARKET INTELLIGENCE CONSULTANT>1 finger touch w/ SLS. 1 MARKET INTELLIGENCE CONSULTANT w/ EO/EC and head turns. PT-OP-T Assessment and Plan Start: 02/12/23 16:06 Freq: Status: Active Protocol: Document 03/25/23 13:49 SW (Rec: 03/25/23 14:43 [id number]) Physical Therapy Assessment Goals Tandem stance Impairment Balance Impairment Pt able to hold tandem stance for 10 seconds, requiring use of hands to achieve position. Short Term Goal (STG) Pt able to hold tandem stance bilaterally for 16 seconds. 03/04/23: Goal progressing. Pt able to hold for 15 seconds bilaterally. STG Duration 03/04/23 Custodial Goal (LTG) Pt able to hold tandem stance for 25 seconds bilaterally. LTG Duration 03/26/23 HEP Impairment Pt with limited HEP Custodial Goal (LTG) Pt is independent with HEP LTG Duration 03/26/23 Balance Impairment Camacho balance Impairment Camacho balance score of 38/56 Short Term Goal (STG) Pt with improved balance with improved Camacho balance score of 43/56. 03/08/23: Camacho balance score of 43/56 STG Duration 03/04/23 (Goal met 03/08/23: 43/ 56) Car Repossessor Goal (LTG) Pt with improved balance with improved Camacho balance score of 48/56 LTG Duration 03/26/23 Strength Impairment Strength Impairment Pt able to complete 5 STS squats in 34.7 seconds with minimal use of unilateral UE at chair that is 20 inches in height. Short Term Goal (STG) Pt able to complete 5 STS squats in 25 seconds without use of UE at chair that is 20 inches in height. Goal Met: 03/04/23 Pt able to complete in 25 seconds. STG Duration 03/05/23 Car Repossessor Goal (LTG) Pt able to complete 5 STS squats in 18 seconds without use of UE at chair that is 20 inches in height. 6MWT Impairment Endurance Impairment Pt able to ambulate 886 ft with unilateral trekking pole in 6 minutes. Short Term Goal (STG) Pt able to ambulate 1000 ft with unilateral trekking pole in 6 minutes. Goal unmet on 03/04/23. Pt ambulated 804 ft. Pt reports increase in LBP with walking. STG Duration 03/05/23 Car Repossessor Goal (LTG) Pt able to ambulate 1150 ft with unilateral trekking pole in 6 minutes. LTG Duration 03/26/23 Assessment Summary Assessment Continued LE strengthening today, pt reported fatigue in BLE by end of session today. Progressed balance with tandem walking in // bars, verbal cues for slower controlled movement, difficulty maintaining narrow MICAH CGA, regressed back to full tandem stance with light MARKET INTELLIGENCE CONSULTANT prn. Plan to assess pt tolerance next session and progress as able. Physical Therapy Plan Frequency and Duration Frequency of Treatment 2x/Week Duration of treatment (weeks) 6 Plan of Care Start Date 02/12/23 Plan of Care End Date 03/26/23 Therapeutic Interventions Therapeutic Interventions Balance Training,Coordination Training,Gait Training,Home Exercise Program,Manual Therapy,Neuromuscular Re- education,Patient/Caregiver Education,Self-Care/Home Management,Soft Tissue Mobilization,Taping, Therapeutic Activities, Therapeutic Exercises Modalities Cold Pack/Ice Massage,Hot Packs Next Visit Focus/Plan Next Note Type Treatment Note Next Visit Plan Provide HO for HEP: resisted shoulder extension and resisted stepouts. POC: progress strength, endurance and balance as tolerated
--- NOTE | 2023-03-29 13:33 | PT.OPPOC ---
Physical, Occupational & Speech Therapy At [facility] Current Diagnoses Unsteadiness on feet (03/29/23) Other abnormalities of gait and mobility (03/29/23) Weakness (03/29/23) Visit Care Team Role Provider Type Truong Saucedo MD Family Provider Physician Specialty: [facility] Address: [address] [place] [address], [id number] Email: [email or web address] WILLIAM Robert Attending Provider Advanced Tempering Kiln Tender Primary Care Provider Referring Provider Specialty: [facility] Address: [address] [place] [address], [id number] Email: [email or web address] Plan Of Care PT-OP-T Assessment and Plan Start: 02/12/23 16:06 Freq: Status: Active Protocol: Document 03/29/23 13:33 AM (Rec: 03/29/23 14:18 AM [id number]) Physical Therapy Assessment Goals Tandem stance Impairment Balance Impairment Pt able to hold tandem stance for 10 seconds, requiring use of hands to achieve position. Short Term Goal (STG) Pt able to hold tandem stance bilaterally for 16 seconds. 03/04/23: Goal progressing. Pt able to hold for 15 seconds bilaterally. STG Duration 03/04/23 Mcc Goal (LTG) Pt able to hold tandem stance for 25 seconds bilaterally. 03/26/23: Pt able to hold 15 seconds bilaterally LTG Duration 03/26/23 HEP Impairment Pt with limited HEP Acid Maker Goal (LTG) Pt is independent with HEP LTG Duration 03/26/23 Balance Impairment Camacho balance Impairment Camacho balance score of 38/56 Short Term Goal (STG) Pt with improved balance with improved Camacho balance score of 43/56. 03/08/23: Camacho balance score of 43/56 STG Duration 03/04/23 (Goal met 03/08/23: 43/ 56) Acid Maker Goal (LTG) Pt with improved balance with improved Camacho balance score of 48/56 03/26/23: 47/56 Camacho Balance score LTG Duration 03/26/23 Strength Impairment Strength Impairment Pt able to complete 5 STS squats in 34.7 seconds with minimal use of unilateral UE at chair that is 20 inches in height. Short Term Goal (STG) Pt able to complete 5 STS squats in 25 seconds without use of UE at chair that is 20 inches in height. Goal Met: 03/04/23 Pt able to complete in 25 seconds. STG Duration 03/05/23 Acid Maker Goal (LTG) Pt able to complete 5 STS squats in 18 seconds without use of UE at chair that is 20 inches in height. 03/29/23: Pt able to do 5 STS squats in 19 seconds without UE support. 6MWT Impairment Endurance Impairment Pt able to ambulate 886 ft with unilateral trekking pole in 6 minutes. Short Term Goal (STG) Pt able to ambulate 1000 ft with unilateral trekking pole in 6 minutes. Goal unmet on 03/04/23. Pt ambulated 804 ft. Pt reports increase in LBP with walking. STG Duration 03/05/23 Acid Maker Goal (LTG) Pt able to ambulate 1150 ft with unilateral trekking pole in 6 minutes. Goal unmet on 03/29/23: Pt ambulated 805ft. LTG Duration 03/26/23 Progress Towards Goals Progress Towards Goals Progressing Toward Goals Assessment Summary Assessment Pt demonstrates improvements in balance and strength since start of PT. Pt demonstrates less distance ambulated on 6MWT compared to IE. Pt able to do 5xSTS without UE support today. Pt continues to demonstrate faulty movement patterns during gait, demonstrating trunk flexion and locking mechanism of L knee. Pt is making progress towards all goals and would benefit from continued PT to continue to progress strength, mobility, balance and gait pattern as tolerated. Physical Therapy Plan Frequency and Duration Frequency of Treatment 2x/Week Duration of treatment (weeks) 11 Plan of Care Start Date 02/12/23 Plan of Care End Date 04/30/23 Therapeutic Interventions Therapeutic Interventions Balance Training,Coordination Training,Gait Training,Home Exercise Program,Manual Therapy,Neuromuscular Re- education,Patient/Caregiver Education,Self-Care/Home Management,Soft Tissue Mobilization,Taping, Therapeutic Activities, Therapeutic Exercises Modalities Cold Pack/Ice Massage,Hot Packs Next Visit Focus/Plan Next Note Type Treatment Note Next Visit Plan Cont to progress HEP POC: progress strength, endurance and balance as tolerated Plan of Care Dates Plan of Care Start Date 02/12/23 Plan of Care End Date 04/30/23 Electronically Signed by: Lila Cadena, SIMON 03/29/23 [id number] If you are in agreement with this Plan of Care, please return a signed and dated copy. I have reviewed this Plan of Care and certify that the skilled therapy services above are required to meet the patient?s needs. Physician Signature Date Printed Name and Credentials Clinical Instructor Signature Printed Name and Credentials
--- NOTE | 2023-03-29 13:33 | PT.OTN ---
Current Diagnoses Unsteadiness on feet (03/29/23) Other abnormalities of gait and mobility (03/29/23) Weakness (03/29/23) Physical Therapy Treatment Note PT-OP-A Visit Information Start: 02/12/23 16:06 Freq: Status: Active Protocol: Document 03/29/23 13:33 AM (Rec: 03/29/23 14:18 AM [id number]) Out-Patient Physical Therapy Visit Information Visit Information Visit Type Progress Note Visit Start Time 13:33 Visit Stop Time 12:15 Total Visit Minutes 42 Visit Number 12 Precautions Precautions Lumbar x-ray: Prior fusion, Mild scoliosis. Exaggerated lumbar spine lordosis. Grade 1 anterolisthesis of L4 on L5 and L5 on S1. Grade 1 retrolisthesis of L1 on L2 and L2 on L3. PT-OP-B Current Condition Start: 02/12/23 16:06 Freq: Status: Active Protocol: Document 02/25/23 13:31 AM (Rec: 02/25/23 14:17 AM [id number]) Current Condition History of Current Condition Onset Date 2020 Current Complaints weakness, unsteadiness History of Current Condition Pt reports that she would like to improve her balance, strength and endurance. Pt with hx of bilateral TKA. Pt had a fall in Dec 2020 and fractured her L patella. She wore a knee immplizer and had surgery, though continues to have difficulty with knee. Pt reports that she locks knee in standing for stability. Pt reports that she walks with walking stick for community ambulation and no AD with household. Pt denies fall since her fall in 2020. Pt reports that she is able to ambulate 2-3 blocks before need to sit because of knee pain and fatigue. Pt reports that she recently got a recumbent bike and plans to use it daily for 20 min. Prior Treatments and Tests Prior PT for knees, back and balance issues Future Testing and Treatments Planned Pt will see her PCP next week and hoping to get low back x- rays PT-OP-C Subjective Start: 02/12/23 16:06 Freq: Status: Active Protocol: Document 03/29/23 13:33 AM (Rec: 03/29/23 14:18 AM [id number]) OP-PT Subjective Patient Comments Patient Comments Pt reports that her back is feeling sore today. PT-OP-D Balance Start: 02/12/23 16:06 Freq: Status: Active Protocol: Document 03/29/23 13:33 AM (Rec: 03/29/23 14:18 AM [id number]) Camacho Balance Assessment Evaluation Sitting to Standing Ability Independent w/out Hands Unsupported Stance Safely- 2 minutes Sitting Unsupported, Feet on Floor Safely- 2 minutes Standing to Sitting Ability Safely, Minimal Hand Use Transfer Ability Safely, Minimal Hand Use Unsupported Stance- Eyes Closed Supervision, 10 seconds Unsupported Stance- Eyes Open Supervision to maintain Reaching Forward Standing Confidently, 10 inches Pick- Up Object From Floor Independent/Safe Look Behind Shoulder - Standing Shifts Weight Well Turning 360 Degrees Turns , < 4 secs Unsupported Stance, Alternating Feet on (I)- 8 Steps in > 20 secs Stair Unsupported Tandem Stance Small Step- 30 seconds Unilateral Leg Stance Lifts Leg/Unable to Hold Total Score Camacho Total Score (out of 56 points) 47 PT-OP-E Functional Tests Start: 02/12/23 16:06 Freq: Status: Active Protocol: Document 03/29/23 13:33 AM (Rec: 03/29/23 14:18 AM [id number]) Functional Tests Five Times Sit to Stand Test Score 18.7 Comments 20 in height PT-OP-G Mobility & Gait Start: 02/12/23 16:06 Freq: Status: Active Protocol: Document 02/25/23 13:31 AM (Rec: 02/25/23 14:18 AM [id number]) OP Gait Assessment Gait Gait Assistance Required: Independent Gait Deviations General Gait Pattern Antalgic Factors Limiting Gait Function Factors Limiting Gait Function Decreased Strength,Pain,Poor Balance Comments Gait Comments Pt ambulates with unilateral trekking pole. PT-OP-J Posture/Palpation/Skin Start: 02/12/23 16:06 Freq: Status: Active Protocol: Document 02/12/23 16:07 AM (Rec: 02/12/23 17:26 AM [id number]) Posture Evaluation Position Standing L-Spine Posture Flexed Pelvis Posture Anteriorly Tilted PT-OP-M Strength Start: 02/12/23 16:06 Freq: Status: Active Protocol: Document 02/12/23 16:07 AM (Rec: 02/12/23 17:26 AM [id number]) Hip Strength Hip Manual Muscle Testing Left Flexion (L2) 4- Good- Abduction 4- Good- Adduction 4- Good- Right Flexion (L2) 4- Good- Abduction 4- Good- Adduction 4- Good- Knee Strength Knee Manual Muscle Testing Left Flexion (S2) 4- Good- Extension (L3) 3+ Fair+ Right Flexion (S2) 4- Good- Extension (L3) 4- Good- Ankle/Foot Strength Ankle and Foot Manual Muscle Testing Left Dorsiflexion (L4) 4- Good- Plantarflexion (S1) 4- Good- Right Dorsiflexion (L4) 4- Good- Plantarflexion (S1) 4- Good- PT-OP-Q Treatments Start: 02/12/23 16:06 Freq: Status: Active Protocol: Document 03/29/23 13:33 AM (Rec: 03/29/23 14:18 AM [id number]) Cardio Equipment Recumbent Stepper (Sci-Fit) Duration (Minutes) 8 Resistance 8 Seat Position 13 Other UE/ LE Therapeutic Exercises Supine Exercises SKTC Side bilateral Reps/Minutes x30 sec ea LE PT-OP-T Assessment and Plan Start: 02/12/23 16:06 Freq: Status: Active Protocol: Document 03/29/23 13:33 AM (Rec: 03/29/23 14:18 AM [id number]) Physical Therapy Assessment Goals Tandem stance Impairment Balance Impairment Pt able to hold tandem stance for 10 seconds, requiring use of hands to achieve position. Short Term Goal (STG) Pt able to hold tandem stance bilaterally for 16 seconds. 03/04/23: Goal progressing. Pt able to hold for 15 seconds bilaterally. STG Duration 03/04/23 Retail Operations Specialist Goal (LTG) Pt able to hold tandem stance for 25 seconds bilaterally. 03/26/23: Pt able to hold 15 seconds bilaterally LTG Duration 03/26/23 HEP Impairment Pt with limited HEP Senior Care Goal (LTG) Pt is independent with HEP LTG Duration 03/26/23 Balance Impairment Camacho balance Impairment Camacho balance score of 38/56 Short Term Goal (STG) Pt with improved balance with improved Camacho balance score of 43/56. 03/08/23: Camacho balance score of 43/56 STG Duration 03/04/23 (Goal met 03/08/23: 43/ 56) Retail Operations Specialist Goal (LTG) Pt with improved balance with improved Camacho balance score of 48/56 03/26/23: 47/56 Camacho Balance score LTG Duration 03/26/23 Strength Impairment Strength Impairment Pt able to complete 5 STS squats in 34.7 seconds with minimal use of unilateral UE at chair that is 20 inches in height. Short Term Goal (STG) Pt able to complete 5 STS squats in 25 seconds without use of UE at chair that is 20 inches in height. Goal Met: 03/04/23 Pt able to complete in 25 seconds. STG Duration 03/05/23 Senior Care Goal (LTG) Pt able to complete 5 STS squats in 18 seconds without use of UE at chair that is 20 inches in height. 03/29/23: Pt able to do 5 STS squats in 19 seconds without UE support. 6MWT Impairment Endurance Impairment Pt able to ambulate 886 ft with unilateral trekking pole in 6 minutes. Short Term Goal (STG) Pt able to ambulate 1000 ft with unilateral trekking pole in 6 minutes. Goal unmet on 03/04/23. Pt ambulated 804 ft. Pt reports increase in LBP with walking. STG Duration 03/05/23 Senior Care Goal (LTG) Pt able to ambulate 1150 ft with unilateral trekking pole in 6 minutes. Goal unmet on 03/29/23: Pt ambulated 805ft. LTG Duration 03/26/23 Progress Towards Goals Progress Towards Goals Progressing Toward Goals Assessment Summary Assessment Pt demonstrates improvements in balance and strength since start of PT. Pt demonstrates less distance ambulated on 6MWT compared to IE. Pt able to do 5xSTS without UE support today. Pt continues to demonstrate faulty movement patterns during gait, demonstrating trunk flexion and locking mechanism of L knee. Pt is making progress towards all goals and would benefit from continued PT to continue to progress strength, mobility, balance and gait pattern as tolerated. Physical Therapy Plan Frequency and Duration Frequency of Treatment 2x/Week Duration of treatment (weeks) 11 Plan of Care Start Date 02/12/23 Plan of Care End Date 04/30/23 Therapeutic Interventions Therapeutic Interventions Balance Training,Coordination Training,Gait Training,Home Exercise Program,Manual Therapy,Neuromuscular Re- education,Patient/Caregiver Education,Self-Care/Home Management,Soft Tissue Mobilization,Taping, Therapeutic Activities, Therapeutic Exercises Modalities Cold Pack/Ice Massage,Hot Packs Next Visit Focus/Plan Next Note Type Treatment Note Next Visit Plan Cont to progress HEP POC: progress strength, endurance and balance as tolerated
--- NOTE | 2023-04-05 15:31 | PT.OTN ---
Current Diagnoses Unsteadiness on feet (04/05/23) Other abnormalities of gait and mobility (04/05/23) Weakness (04/05/23) Physical Therapy Treatment Note PT-OP-A Visit Information Start: 02/12/23 16:06 Freq: Status: Active Protocol: Document 04/05/23 15:18 NM (Rec: 04/05/23 15:31 NM [id number]) Out-Patient Physical Therapy Visit Information Visit Information Visit Type Treatment Note Visit Start Time 14:35 Visit Stop Time 15:15 Total Visit Minutes 40 Visit Number 13 Precautions Precautions Lumbar x-ray: Prior fusion, Mild scoliosis. Exaggerated lumbar spine lordosis. Grade 1 anterolisthesis of L4 on L5 and L5 on S1. Grade 1 retrolisthesis of L1 on L2 and L2 on L3. PT-OP-B Current Condition Start: 02/12/23 16:06 Freq: Status: Active Protocol: Document 02/25/23 13:31 AM (Rec: 02/25/23 14:17 AM [id number]) Current Condition History of Current Condition Onset Date 2020 Current Complaints weakness, unsteadiness History of Current Condition Pt reports that she would like to improve her balance, strength and endurance. Pt with hx of bilateral TKA. Pt had a fall in Dec 2020 and fractured her L patella. She wore a knee immplizer and had surgery, though continues to have difficulty with knee. Pt reports that she locks knee in standing for stability. Pt reports that she walks with walking stick for community ambulation and no AD with household. Pt denies fall since her fall in 2020. Pt reports that she is able to ambulate 2-3 blocks before need to sit because of knee pain and fatigue. Pt reports that she recently got a recumbent bike and plans to use it daily for 20 min. Prior Treatments and Tests Prior PT for knees, back and balance issues Future Testing and Treatments Planned Pt will see her PCP next week and hoping to get low back x- rays PT-OP-C Subjective Start: 02/12/23 16:06 Freq: Status: Active Protocol: Document 04/05/23 15:18 NM (Rec: 04/05/23 15:31 NM [id number]) OP-PT Subjective Patient Comments Patient Comments Pt reports that her back is feeling sore, but she feels well overall today. PT-OP-D Balance Start: 02/12/23 16:06 Freq: Status: Active Protocol: Document 03/29/23 13:33 AM (Rec: 03/29/23 14:18 AM [id number]) Camacho Balance Assessment Evaluation Sitting to Standing Ability Independent w/out Hands Unsupported Stance Safely- 2 minutes Sitting Unsupported, Feet on Floor Safely- 2 minutes Standing to Sitting Ability Safely, Minimal Hand Use Transfer Ability Safely, Minimal Hand Use Unsupported Stance- Eyes Closed Supervision, 10 seconds Unsupported Stance- Eyes Open Supervision to maintain Reaching Forward Standing Confidently, 10 inches Pick- Up Object From Floor Independent/Safe Look Behind Shoulder - Standing Shifts Weight Well Turning 360 Degrees Turns , < 4 secs Unsupported Stance, Alternating Feet on (I)- 8 Steps in > 20 secs Stair Unsupported Tandem Stance Small Step- 30 seconds Unilateral Leg Stance Lifts Leg/Unable to Hold Total Score Camacho Total Score (out of 56 points) 47 PT-OP-E Functional Tests Start: 02/12/23 16:06 Freq: Status: Active Protocol: Document 03/29/23 13:33 AM (Rec: 03/29/23 14:18 AM [id number]) Functional Tests Five Times Sit to Stand Test Score 18.7 Comments 20 in height PT-OP-G Mobility & Gait Start: 02/12/23 16:06 Freq: Status: Active Protocol: Document 02/25/23 13:31 AM (Rec: 02/25/23 14:18 AM [id number]) OP Gait Assessment Gait Gait Assistance Required: Independent Gait Deviations General Gait Pattern Antalgic Factors Limiting Gait Function Factors Limiting Gait Function Decreased Strength,Pain,Poor Balance Comments Gait Comments Pt ambulates with unilateral trekking pole. PT-OP-J Posture/Palpation/Skin Start: 02/12/23 16:06 Freq: Status: Active Protocol: Document 02/12/23 16:07 AM (Rec: 02/12/23 17:26 AM [id number]) Posture Evaluation Position Standing L-Spine Posture Flexed Pelvis Posture Anteriorly Tilted PT-OP-M Strength Start: 02/12/23 16:06 Freq: Status: Active Protocol: Document 02/12/23 16:07 AM (Rec: 02/12/23 17:26 AM [id number]) Hip Strength Hip Manual Muscle Testing Left Flexion (L2) 4- Good- Abduction 4- Good- Adduction 4- Good- Right Flexion (L2) 4- Good- Abduction 4- Good- Adduction 4- Good- Knee Strength Knee Manual Muscle Testing Left Flexion (S2) 4- Good- Extension (L3) 3+ Fair+ Right Flexion (S2) 4- Good- Extension (L3) 4- Good- Ankle/Foot Strength Ankle and Foot Manual Muscle Testing Left Dorsiflexion (L4) 4- Good- Plantarflexion (S1) 4- Good- Right Dorsiflexion (L4) 4- Good- Plantarflexion (S1) 4- Good- PT-OP-Q Treatments Start: 02/12/23 16:06 Freq: Status: Active Protocol: Document 04/05/23 15:18 NM (Rec: 04/05/23 15:31 NM [id number]) Gym Equipment Cable Column (Body Solid) Hip Abduction Details position 5 Resistance 40# Reps/Time 2x20 Hip Adduction Details position 3 Resistance 40# Reps/Time 2x20 Shuttle Recovery Unilateral Squats Details corrections in LE alignment required; cues to not hyperext LLE Resistance 50# (2 navy bands) Shuttle Recovery Platform Stable Reps/Time 2x20 ea LE Bilateral Heel Raises Details tactile cues not to hyperext LLE Resistance 75# (3 navy) Shuttle Recovery Platform Stable Reps/Time 2x20 Bilateral Squats Resistance 75# (3 navy) Shuttle Recovery Platform Stable Reps/Time 2x20, cues for eccentric control and to prevent LLE hyperext Sport Cord resisted gait f/b/side stepping Exercise Details w/ trekking pole RUE glut/ abductor facilitation Cord/Resistance green Reps/Duration 10 reps ea direction Comments cued for posture and to prevent trunk leaning Therapeutic Exercises Standing Exercises Pallof press Side bilateral Resistance green tb Equipment Used no trekking pole Reps/Minutes x10 reps Comments cues to prevent trunk rotation , correct form PT-OP-T Assessment and Plan Start: 02/12/23 16:06 Freq: Status: Active Protocol: Document 04/05/23 15:18 NM (Rec: 04/05/23 15:31 NM [id number]) Physical Therapy Assessment Goals Tandem stance Impairment Balance Impairment Pt able to hold tandem stance for 10 seconds, requiring use of hands to achieve position. Short Term Goal (STG) Pt able to hold tandem stance bilaterally for 16 seconds. 10/5/23: Goal progressing. Pt able to hold for 15 seconds bilaterally. STG Duration 03/04/23 Spring Inspector Goal (LTG) Pt able to hold tandem stance for 25 seconds bilaterally. 03/26/23: Pt able to hold 15 seconds bilaterally LTG Duration 03/26/23 HEP Impairment Pt with limited HEP Spring Inspector Goal (LTG) Pt is independent with HEP LTG Duration 03/26/23 Balance Impairment Camacho balance Impairment Camacho balance score of 38/56 Short Term Goal (STG) Pt with improved balance with improved Camacho balance score of 43/56. 03/08/23: Camacho balance score of 43/56 STG Duration 03/04/23 (Goal met 03/08/23: 43/ 56) Half-Way Goal (LTG) Pt with improved balance with improved Camacho balance score of 48/56 03/26/23: 47/56 Camacho Balance score LTG Duration 03/26/23 Strength Impairment Strength Impairment Pt able to complete 5 STS squats in 34.7 seconds with minimal use of unilateral UE at chair that is 20 inches in height. Short Term Goal (STG) Pt able to complete 5 STS squats in 25 seconds without use of UE at chair that is 20 inches in height. Goal Met: 03/04/23 Pt able to complete in 25 seconds. STG Duration 03/05/23 Spring Inspector Goal (LTG) Pt able to complete 5 STS squats in 18 seconds without use of UE at chair that is 20 inches in height. 03/29/23: Pt able to do 5 STS squats in 19 seconds without UE support. 6MWT Impairment Endurance Impairment Pt able to ambulate 886 ft with unilateral trekking pole in 6 minutes. Short Term Goal (STG) Pt able to ambulate 1000 ft with unilateral trekking pole in 6 minutes. Goal unmet on 03/04/23. Pt ambulated 804 ft. Pt reports increase in LBP with walking. STG Duration 03/05/23 Half-Way Goal (LTG) Pt able to ambulate 1150 ft with unilateral trekking pole in 6 minutes. Goal unmet on 03/29/23: Pt ambulated 805ft. LTG Duration 03/26/23 Progress Towards Goals Progress Towards Goals Progressing Toward Goals Assessment Summary Assessment Pt tolerated treatment well and was able to progress in the duration of strengthening exercises without pain or fatigue. Pt demonstrates compensations during gait, standing balance activities, and during exercises on gym equipment; requires frequent verbal and tactile cues for correct execution and to prevent compensatory patterns. Pt would benefit from continued skilled PT to address impairments with gait, balance, and BLE strength for improved mobility, safety, and activity tolerance. Physical Therapy Plan Frequency and Duration Frequency of Treatment 2x/Week Duration of treatment (weeks) 11 Plan of Care Start Date 02/12/23 Plan of Care End Date 04/30/23 Therapeutic Interventions Therapeutic Interventions Balance Training,Coordination Training,Gait Training,Home Exercise Program,Manual Therapy,Neuromuscular Re- education,Patient/Caregiver Education,Self-Care/Home Management,Soft Tissue Mobilization,Taping, Therapeutic Activities, Therapeutic Exercises Modalities Cold Pack/Ice Massage,Hot Packs Next Visit Focus/Plan Next Note Type Treatment Note Next Visit Plan Cont to progress HEP Progress strength, endurance and balance as tolerated
--- NOTE | 2023-04-09 09:49 | PT.OTN ---
Current Diagnoses Unsteadiness on feet (04/09/23) Other abnormalities of gait and mobility (04/09/23) Weakness (04/09/23) Physical Therapy Treatment Note PT-OP-A Visit Information Start: 02/12/23 16:06 Freq: Status: Active Protocol: Document 04/09/23 09:49 AM (Rec: 04/09/23 13:26 AM [id number]) Out-Patient Physical Therapy Visit Information Visit Information Visit Type Treatment Note Visit Start Time 09:49 Visit Stop Time 10:34 Total Visit Minutes 45 Visit Number 14 PT-OP-B Current Condition Start: 02/12/23 16:06 Freq: Status: Active Protocol: Document 02/25/23 13:31 AM (Rec: 02/25/23 14:17 AM [id number]) Current Condition History of Current Condition Onset Date 2020 Current Complaints weakness, unsteadiness History of Current Condition Pt reports that she would like to improve her balance, strength and endurance. Pt with hx of bilateral TKA. Pt had a fall in Dec 2020 and fractured her L patella. She wore a knee immplizer and had surgery, though continues to have difficulty with knee. Pt reports that she locks knee in standing for stability. Pt reports that she walks with walking stick for community ambulation and no AD with household. Pt denies fall since her fall in 2020. Pt reports that she is able to ambulate 2-3 blocks before need to sit because of knee pain and fatigue. Pt reports that she recently got a recumbent bike and plans to use it daily for 20 min. Prior Treatments and Tests Prior PT for knees, back and balance issues Future Testing and Treatments Planned Pt will see her PCP next week and hoping to get low back x- rays PT-OP-C Subjective Start: 02/12/23 16:06 Freq: Status: Active Protocol: Document 04/09/23 09:49 AM (Rec: 04/09/23 13:26 AM [id number]) OP-PT Subjective Patient Comments Patient Comments Pt reports that her back has been about the same. She reports that evenings typically feel worse. PT-OP-D Balance Start: 02/12/23 16:06 Freq: Status: Active Protocol: Document 03/29/23 13:33 AM (Rec: 03/29/23 14:18 AM [id number]) Camacho Balance Assessment Evaluation Sitting to Standing Ability Independent w/out Hands Unsupported Stance Safely- 2 minutes Sitting Unsupported, Feet on Floor Safely- 2 minutes Standing to Sitting Ability Safely, Minimal Hand Use Transfer Ability Safely, Minimal Hand Use Unsupported Stance- Eyes Closed Supervision, 10 seconds Unsupported Stance- Eyes Open Supervision to maintain Reaching Forward Standing Confidently, 10 inches Pick- Up Object From Floor Independent/Safe Look Behind Shoulder - Standing Shifts Weight Well Turning 360 Degrees Turns , < 4 secs Unsupported Stance, Alternating Feet on (I)- 8 Steps in > 20 secs Stair Unsupported Tandem Stance Small Step- 30 seconds Unilateral Leg Stance Lifts Leg/Unable to Hold Total Score Camacho Total Score (out of 56 points) 47 PT-OP-E Functional Tests Start: 02/12/23 16:06 Freq: Status: Active Protocol: Document 03/29/23 13:33 AM (Rec: 03/29/23 14:18 AM [id number]) Functional Tests Five Times Sit to Stand Test Score 18.7 Comments 20 in height PT-OP-G Mobility & Gait Start: 02/12/23 16:06 Freq: Status: Active Protocol: Document 02/25/23 13:31 AM (Rec: 02/25/23 14:18 AM [id number]) OP Gait Assessment Gait Gait Assistance Required: Independent Gait Deviations General Gait Pattern Antalgic Factors Limiting Gait Function Factors Limiting Gait Function Decreased Strength,Pain,Poor Balance Comments Gait Comments Pt ambulates with unilateral trekking pole. PT-OP-J Posture/Palpation/Skin Start: 02/12/23 16:06 Freq: Status: Active Protocol: Document 02/12/23 16:07 AM (Rec: 02/12/23 17:26 AM [id number]) Posture Evaluation Position Standing L-Spine Posture Flexed Pelvis Posture Anteriorly Tilted PT-OP-M Strength Start: 02/12/23 16:06 Freq: Status: Active Protocol: Document 02/12/23 16:07 AM (Rec: 02/12/23 17:26 AM [id number]) Hip Strength Hip Manual Muscle Testing Left Flexion (L2) 4- Good- Abduction 4- Good- Adduction 4- Good- Right Flexion (L2) 4- Good- Abduction 4- Good- Adduction 4- Good- Knee Strength Knee Manual Muscle Testing Left Flexion (S2) 4- Good- Extension (L3) 3+ Fair+ Right Flexion (S2) 4- Good- Extension (L3) 4- Good- Ankle/Foot Strength Ankle and Foot Manual Muscle Testing Left Dorsiflexion (L4) 4- Good- Plantarflexion (S1) 4- Good- Right Dorsiflexion (L4) 4- Good- Plantarflexion (S1) 4- Good- PT-OP-Q Treatments Start: 02/12/23 16:06 Freq: Status: Active Protocol: Document 04/09/23 09:49 AM (Rec: 04/09/23 13:26 AM [id number]) Cardio Equipment Recumbent Stepper (Sci-Fit) Duration (Minutes) 6 Resistance 8 Seat Position 13 Other UE/ LE Gym Equipment Shuttle Recovery Unilateral Squats Details corrections in LE alignment required; cues to not hyperext LLE Resistance 50# (2 navy bands) Shuttle Recovery Platform Stable Reps/Time 2x20 ea LE Bilateral Squats Resistance 75# (3 navy) Shuttle Recovery Platform Stable Reps/Time 2x20, cues for eccentric control and to prevent LLE hyperext Therapeutic Exercises Standing Exercises Standing hip flexor stretch Equipment Used in // bars Reps/Minutes 2x30 sec Pallof press Side bilateral Resistance green tb Equipment Used no trekking pole Reps/Minutes x10 reps Comments cues to prevent trunk rotation , correct form Gait Training Gait Activity Trekking poles Device Used unilateral trekking pole Distance/Duration 8 min Treatment Focus endurance and gait pattern Comments cues for posture and decreased dian. PT-OP-T Assessment and Plan Start: 02/12/23 16:06 Freq: Status: Active Protocol: Document 04/09/23 09:49 AM (Rec: 04/09/23 13:26 AM [id number]) Physical Therapy Assessment Goals Tandem stance Impairment Balance Impairment Pt able to hold tandem stance for 10 seconds, requiring use of hands to achieve position. Short Term Goal (STG) Pt able to hold tandem stance bilaterally for 16 seconds. 03/04/23: Goal progressing. Pt able to hold for 15 seconds bilaterally. STG Duration 03/04/23 Senior Living Goal (LTG) Pt able to hold tandem stance for 25 seconds bilaterally. 03/26/23: Pt able to hold 15 seconds bilaterally LTG Duration 03/26/23 HEP Impairment Pt with limited HEP Senior Living Goal (LTG) Pt is independent with HEP LTG Duration 03/26/23 Balance Impairment Camacho balance Impairment Camacho balance score of 38/56 Short Term Goal (STG) Pt with improved balance with improved Camacho balance score of 43/56. 03/08/23: Camacho balance score of 43/56 STG Duration 03/04/23 (Goal met 03/08/23: 43/ 56) Supervisor In Charge Goal (LTG) Pt with improved balance with improved Camacho balance score of 48/56 03/26/23: 47/56 Camacho Balance score LTG Duration 03/26/23 Strength Impairment Strength Impairment Pt able to complete 5 STS squats in 34.7 seconds with minimal use of unilateral UE at chair that is 20 inches in height. Short Term Goal (STG) Pt able to complete 5 STS squats in 25 seconds without use of UE at chair that is 20 inches in height. Goal Met: 03/04/23 Pt able to complete in 25 seconds. STG Duration 03/05/23 Senior Living Goal (LTG) Pt able to complete 5 STS squats in 18 seconds without use of UE at chair that is 20 inches in height. 03/29/23: Pt able to do 5 STS squats in 19 seconds without UE support. 6MWT Impairment Endurance Impairment Pt able to ambulate 886 ft with unilateral trekking pole in 6 minutes. Short Term Goal (STG) Pt able to ambulate 1000 ft with unilateral trekking pole in 6 minutes. Goal unmet on 03/04/23. Pt ambulated 804 ft. Pt reports increase in LBP with walking. STG Duration 03/05/23 Senior Living Goal (LTG) Pt able to ambulate 1150 ft with unilateral trekking pole in 6 minutes. Goal unmet on 03/29/23: Pt ambulated 805ft. LTG Duration 03/26/23 Assessment Summary Assessment Pt demonstrated improved posture during gait with cueing and with decreased dian. Pt required cueing for hip extension and scap retraction with pallof press. Pt required cueing for knee alignment, eccentric control and prevention of knee hyperextension with shuttle squats. Pt with difficulty with coordination of standing hip flexor stretch, though reported stretch bilaterally. Pt would benefit from continued PT to progress functional strenght, gait and mobility as tolerated. Physical Therapy Plan Frequency and Duration Frequency of Treatment 2x/Week Duration of treatment (weeks) 11 Plan of Care Start Date 02/12/23 Plan of Care End Date 04/30/23 Therapeutic Interventions Therapeutic Interventions Balance Training,Coordination Training,Gait Training,Home Exercise Program,Manual Therapy,Neuromuscular Re- education,Patient/Caregiver Education,Self-Care/Home Management,Soft Tissue Mobilization,Taping, Therapeutic Activities, Therapeutic Exercises Modalities Cold Pack/Ice Massage,Hot Packs Next Visit Focus/Plan Next Note Type Treatment Note Next Visit Plan Cont to progress HEP Progress strength, endurance and balance as tolerated
--- NOTE | 2023-04-12 12:46 | PT.OTN ---
Current Diagnoses Unsteadiness on feet (04/12/23) Other abnormalities of gait and mobility (04/12/23) Weakness (04/12/23) Physical Therapy Treatment Note PT-OP-A Visit Information Start: 02/12/23 16:06 Freq: Status: Active Protocol: Document 04/12/23 10:44 NBM (Rec: 04/12/23 11:18 NBM [id number]) Out-Patient Physical Therapy Visit Information Visit Information Visit Type Treatment Note Visit Start Time 10:35 Visit Stop Time 11:15 Total Visit Minutes 40 Visit Number 15 Number of CLOTH DYER Visits 1 PT-OP-B Current Condition Start: 02/12/23 16:06 Freq: Status: Active Protocol: Document 02/25/23 13:31 AM (Rec: 02/25/23 14:17 AM [id number]) Current Condition History of Current Condition Onset Date 2020 Current Complaints weakness, unsteadiness History of Current Condition Pt reports that she would like to improve her balance, strength and endurance. Pt with hx of bilateral TKA. Pt had a fall in Dec 2020 and fractured her L patella. She wore a knee immplizer and had surgery, though continues to have difficulty with knee. Pt reports that she locks knee in standing for stability. Pt reports that she walks with walking stick for community ambulation and no AD with household. Pt denies fall since her fall in 2020. Pt reports that she is able to ambulate 2-3 blocks before need to sit because of knee pain and fatigue. Pt reports that she recently got a recumbent bike and plans to use it daily for 20 min. Prior Treatments and Tests Prior PT for knees, back and balance issues Future Testing and Treatments Planned Pt will see her PCP next week and hoping to get low back x- rays PT-OP-C Subjective Start: 02/12/23 16:06 Freq: Status: Active Protocol: Document 04/12/23 10:44 NBM (Rec: 04/12/23 11:18 NBM [id number]) OP-PT Subjective Patient Comments Patient Comments Nevaeh reports she had a good weekend and slept well. She has a poor night's sleep about once a week, often related to having to get up to use the bathroom. PT-OP-D Balance Start: 02/12/23 16:06 Freq: Status: Active Protocol: Document 03/29/23 13:33 AM (Rec: 03/29/23 14:18 AM [id number]) Camacho Balance Assessment Evaluation Sitting to Standing Ability Independent w/out Hands Unsupported Stance Safely- 2 minutes Sitting Unsupported, Feet on Floor Safely- 2 minutes Standing to Sitting Ability Safely, Minimal Hand Use Transfer Ability Safely, Minimal Hand Use Unsupported Stance- Eyes Closed Supervision, 10 seconds Unsupported Stance- Eyes Open Supervision to maintain Reaching Forward Standing Confidently, 10 inches Pick- Up Object From Floor Independent/Safe Look Behind Shoulder - Standing Shifts Weight Well Turning 360 Degrees Turns , < 4 secs Unsupported Stance, Alternating Feet on (I)- 8 Steps in > 20 secs Stair Unsupported Tandem Stance Small Step- 30 seconds Unilateral Leg Stance Lifts Leg/Unable to Hold Total Score Camacho Total Score (out of 56 points) 47 PT-OP-E Functional Tests Start: 02/12/23 16:06 Freq: Status: Active Protocol: Document 03/29/23 13:33 AM (Rec: 03/29/23 14:18 AM [id number]) Functional Tests Five Times Sit to Stand Test Score 18.7 Comments 20 in height PT-OP-G Mobility & Gait Start: 02/12/23 16:06 Freq: Status: Active Protocol: Document 02/25/23 13:31 AM (Rec: 02/25/23 14:18 AM [id number]) OP Gait Assessment Gait Gait Assistance Required: Independent Gait Deviations General Gait Pattern Antalgic Factors Limiting Gait Function Factors Limiting Gait Function Decreased Strength,Pain,Poor Balance Comments Gait Comments Pt ambulates with unilateral trekking pole. PT-OP-J Posture/Palpation/Skin Start: 02/12/23 16:06 Freq: Status: Active Protocol: Document 02/12/23 16:07 AM (Rec: 02/12/23 17:26 AM [id number]) Posture Evaluation Position Standing L-Spine Posture Flexed Pelvis Posture Anteriorly Tilted PT-OP-M Strength Start: 02/12/23 16:06 Freq: Status: Active Protocol: Document 02/12/23 16:07 AM (Rec: 02/12/23 17:26 AM [id number]) Hip Strength Hip Manual Muscle Testing Left Flexion (L2) 4- Good- Abduction 4- Good- Adduction 4- Good- Right Flexion (L2) 4- Good- Abduction 4- Good- Adduction 4- Good- Knee Strength Knee Manual Muscle Testing Left Flexion (S2) 4- Good- Extension (L3) 3+ Fair+ Right Flexion (S2) 4- Good- Extension (L3) 4- Good- Ankle/Foot Strength Ankle and Foot Manual Muscle Testing Left Dorsiflexion (L4) 4- Good- Plantarflexion (S1) 4- Good- Right Dorsiflexion (L4) 4- Good- Plantarflexion (S1) 4- Good- PT-OP-Q Treatments Start: 02/12/23 16:06 Freq: Status: Active Protocol: Document 04/12/23 10:44 NBM (Rec: 04/12/23 11:18 [facility] [id number]) Cardio Equipment Recumbent Stepper (Sci-Fit) Duration (Minutes) 8 Resistance 8 Seat Position 14 Other UE/ LE Gym Equipment Shuttle Recovery Unilateral Squats Details corrections in LE alignment required; cues to not hyperext LLE Resistance 62# (2 navy bands) Shuttle Recovery Platform Stable Reps/Time 2x10 ea LE Bilateral Heel Raises Details tactile cues not to hyperext LLE Resistance 75# (3 navy) Shuttle Recovery Platform Stable Reps/Time 2x20 Bilateral Squats Resistance 75# (3 navy) Shuttle Recovery Platform Stable Reps/Time 2x20, cues for eccentric control and to prevent LLE hyperext Shuttle Balance red clips Details WBOS, stride stance Comments A/P WBOS and staggered stance cinthia (wt shifts & balance w/ perturbations) M/L WBOS w/ balloon volleyball , RLE>LLE weakness with cinthia LOB CGA-Lucila recovery. Therapeutic Exercises Supine Exercises calf stretch Side bilateral Resistance 75# Equipment Used Shuttle Recovery Reps/Minutes 2x1 min Comments feels really good PT-OP-T Assessment and Plan Start: 02/12/23 16:06 Freq: Status: Active Protocol: Document 04/12/23 10:44 NBM (Rec: 04/12/23 11:18 [facility] [id number]) Physical Therapy Assessment Goals Tandem stance Impairment Balance Impairment Pt able to hold tandem stance for 10 seconds, requiring use of hands to achieve position. Short Term Goal (STG) Pt able to hold tandem stance bilaterally for 16 seconds. 03/04/23: Goal progressing. Pt able to hold for 15 seconds bilaterally. STG Duration 03/04/23 Prison Goal (LTG) Pt able to hold tandem stance for 25 seconds bilaterally. 03/26/23: Pt able to hold 15 seconds bilaterally LTG Duration 03/26/23 HEP Impairment Pt with limited HEP Prison Goal (LTG) Pt is independent with HEP LTG Duration 03/26/23 Balance Impairment Camacho balance Impairment Camacho balance score of 38/56 Short Term Goal (STG) Pt with improved balance with improved Camacho balance score of 43/56. 03/08/23: Camacho balance score of 43/56 STG Duration 03/04/23 (Goal met 03/08/23: 43/ 56) Cereal Maker Goal (LTG) Pt with improved balance with improved Camacho balance score of 48/56 03/26/23: 47/56 Camacho Balance score LTG Duration 03/26/23 Strength Impairment Strength Impairment Pt able to complete 5 STS squats in 34.7 seconds with minimal use of unilateral UE at chair that is 20 inches in height. Short Term Goal (STG) Pt able to complete 5 STS squats in 25 seconds without use of UE at chair that is 20 inches in height. Goal Met: 03/04/23 Pt able to complete in 25 seconds. STG Duration 03/05/23 Cereal Maker Goal (LTG) Pt able to complete 5 STS squats in 18 seconds without use of UE at chair that is 20 inches in height. 03/29/23: Pt able to do 5 STS squats in 19 seconds without UE support. 6MWT Impairment Endurance Impairment Pt able to ambulate 886 ft with unilateral trekking pole in 6 minutes. Short Term Goal (STG) Pt able to ambulate 1000 ft with unilateral trekking pole in 6 minutes. Goal unmet on 03/04/23. Pt ambulated 804 ft. Pt reports increase in LBP with walking. STG Duration 03/05/23 Prison Goal (LTG) Pt able to ambulate 1150 ft with unilateral trekking pole in 6 minutes. Goal unmet on 03/29/23: Pt ambulated 805ft. LTG Duration 03/26/23 Assessment Summary Assessment Nevaeh struggles with maintaining anterioposterior weightshifting in WBOS and staggered stance without handhold assist and requires cues to maintain upright posture and gluteal activation . She demonstrates posterior lean which improves with repetition and cueing. She tolerates increased resistance from 50#2x20 to 62# 2x10 for single leg squat on Shuttle Recovery with occasional cue for LE alignment. Physical Therapy Plan Frequency and Duration Frequency of Treatment 2x/Week Duration of treatment (weeks) 11 Plan of Care Start Date 02/12/23 Plan of Care End Date 04/30/23 Therapeutic Interventions Therapeutic Interventions Balance Training,Coordination Training,Gait Training,Home Exercise Program,Manual Therapy,Neuromuscular Re- education,Patient/Caregiver Education,Self-Care/Home Management,Soft Tissue Mobilization,Taping, Therapeutic Activities, Therapeutic Exercises Modalities Cold Pack/Ice Massage,Hot Packs Next Visit Focus/Plan Next Note Type Treatment Note Next Visit Plan Cont to progress HEP Progress strength, endurance and balance as tolerated
--- NOTE | 2023-04-15 14:19 | PT.OTN ---
Current Diagnoses Unsteadiness on feet (04/15/23) Other abnormalities of gait and mobility (04/15/23) Weakness (04/15/23) Physical Therapy Treatment Note PT-OP-A Visit Information Start: 02/12/23 16:06 Freq: Status: Active Protocol: Document 04/15/23 14:19 AM (Rec: 04/15/23 15:15 AM [id number]) Out-Patient Physical Therapy Visit Information Visit Information Visit Type Treatment Note Visit Start Time 14:19 Visit Stop Time 15:01 Total Visit Minutes 42 Visit Number 16 PT-OP-B Current Condition Start: 02/12/23 16:06 Freq: Status: Active Protocol: Document 02/25/23 13:31 AM (Rec: 02/25/23 14:17 AM [id number]) Current Condition History of Current Condition Onset Date 2020 Current Complaints weakness, unsteadiness History of Current Condition Pt reports that she would like to improve her balance, strength and endurance. Pt with hx of bilateral TKA. Pt had a fall in Dec 2020 and fractured her L patella. She wore a knee immplizer and had surgery, though continues to have difficulty with knee. Pt reports that she locks knee in standing for stability. Pt reports that she walks with walking stick for community ambulation and no AD with household. Pt denies fall since her fall in 2020. Pt reports that she is able to ambulate 2-3 blocks before need to sit because of knee pain and fatigue. Pt reports that she recently got a recumbent bike and plans to use it daily for 20 min. Prior Treatments and Tests Prior PT for knees, back and balance issues Future Testing and Treatments Planned Pt will see her PCP next week and hoping to get low back x- rays PT-OP-C Subjective Start: 02/12/23 16:06 Freq: Status: Active Protocol: Document 04/15/23 14:19 AM (Rec: 04/15/23 15:15 AM [id number]) OP-PT Subjective Patient Comments Patient Comments No new concerns from pt. Pt reports busy day today and somewhat tired from activity. PT-OP-D Balance Start: 02/12/23 16:06 Freq: Status: Active Protocol: Document 03/29/23 13:33 AM (Rec: 03/29/23 14:18 AM [id number]) Camacho Balance Assessment Evaluation Sitting to Standing Ability Independent w/out Hands Unsupported Stance Safely- 2 minutes Sitting Unsupported, Feet on Floor Safely- 2 minutes Standing to Sitting Ability Safely, Minimal Hand Use Transfer Ability Safely, Minimal Hand Use Unsupported Stance- Eyes Closed Supervision, 10 seconds Unsupported Stance- Eyes Open Supervision to maintain Reaching Forward Standing Confidently, 10 inches Pick- Up Object From Floor Independent/Safe Look Behind Shoulder - Standing Shifts Weight Well Turning 360 Degrees Turns , < 4 secs Unsupported Stance, Alternating Feet on (I)- 8 Steps in > 20 secs Stair Unsupported Tandem Stance Small Step- 30 seconds Unilateral Leg Stance Lifts Leg/Unable to Hold Total Score Camacho Total Score (out of 56 points) 47 PT-OP-E Functional Tests Start: 02/12/23 16:06 Freq: Status: Active Protocol: Document 03/29/23 13:33 AM (Rec: 03/29/23 14:18 AM [id number]) Functional Tests Five Times Sit to Stand Test Score 18.7 Comments 20 in height PT-OP-G Mobility & Gait Start: 02/12/23 16:06 Freq: Status: Active Protocol: Document 02/25/23 13:31 AM (Rec: 02/25/23 14:18 AM [id number]) OP Gait Assessment Gait Gait Assistance Required: Independent Gait Deviations General Gait Pattern Antalgic Factors Limiting Gait Function Factors Limiting Gait Function Decreased Strength,Pain,Poor Balance Comments Gait Comments Pt ambulates with unilateral trekking pole. PT-OP-J Posture/Palpation/Skin Start: 02/12/23 16:06 Freq: Status: Active Protocol: Document 02/12/23 16:07 AM (Rec: 02/12/23 17:26 AM [id number]) Posture Evaluation Position Standing L-Spine Posture Flexed Pelvis Posture Anteriorly Tilted PT-OP-M Strength Start: 02/12/23 16:06 Freq: Status: Active Protocol: Document 02/12/23 16:07 AM (Rec: 02/12/23 17:26 AM [id number]) Hip Strength Hip Manual Muscle Testing Left Flexion (L2) 4- Good- Abduction 4- Good- Adduction 4- Good- Right Flexion (L2) 4- Good- Abduction 4- Good- Adduction 4- Good- Knee Strength Knee Manual Muscle Testing Left Flexion (S2) 4- Good- Extension (L3) 3+ Fair+ Right Flexion (S2) 4- Good- Extension (L3) 4- Good- Ankle/Foot Strength Ankle and Foot Manual Muscle Testing Left Dorsiflexion (L4) 4- Good- Plantarflexion (S1) 4- Good- Right Dorsiflexion (L4) 4- Good- Plantarflexion (S1) 4- Good- PT-OP-Q Treatments Start: 02/12/23 16:06 Freq: Status: Active Protocol: Document 04/15/23 14:19 AM (Rec: 04/15/23 15:15 AM [id number]) Cardio Equipment Recumbent Stepper (Sci-Fit) Duration (Minutes) 8 Resistance 8 Seat Position 14 Other UE/LE Gym Equipment Shuttle Recovery Unilateral Squats Details corrections in LE alignment required; cues to not hyperext LLE Resistance 62# (2 navy bands) Shuttle Recovery Platform Stable Reps/Time 2x10 ea LE Bilateral Squats Resistance 87# (3 navy) Shuttle Recovery Platform Stable Reps/Time 2x20, cues for eccentric control and to prevent LLE hyperext Therapeutic Exercises Standing Exercises Calf stretch Equipment Used ROSE Reps/Minutes x30 sec Standing hip flexor stretch Side bilateral Equipment Used at stairs with railings Reps/Minutes x30 sec ea LE Pallof press Side bilateral Resistance green tb Equipment Used no trekking pole Reps/Minutes x10 reps Comments cues to prevent trunk rotation , correct form shoulder rows Side bilateral Resistance GTB Reps/Minutes 2x10 Comments cues for hip extension for upright posture, cues for scap control shoulder extension Side bilateral Resistance GTB Reps/Minutes 2x10 Comments cues for hip extension for upright posture, cues for scap contrl 3-way hip Standing Exercise Name hip abduction and extension Resistance Ogle TB Reps/Minutes 2x10 PT-OP-T Assessment and Plan Start: 02/12/23 16:06 Freq: Status: Active Protocol: Document 04/15/23 14:19 AM (Rec: 04/15/23 15:15 AM [id number]) Physical Therapy Assessment Goals Tandem stance Impairment Balance Impairment Pt able to hold tandem stance for 10 seconds, requiring use of hands to achieve position. Short Term Goal (STG) Pt able to hold tandem stance bilaterally for 16 seconds. 03/04/23: Goal progressing. Pt able to hold for 15 seconds bilaterally. STG Duration 03/04/23 Vehicle Window Tinter Goal (LTG) Pt able to hold tandem stance for 25 seconds bilaterally. 03/26/23: Pt able to hold 15 seconds bilaterally LTG Duration 04/30/23 HEP Impairment Pt with limited HEP Alf Goal (LTG) Pt is independent with HEP LTG Duration 04/30/23 Balance Impairment Camacho balance Impairment Camacho balance score of 38/56 Short Term Goal (STG) Pt with improved balance with improved Camacho balance score of 43/56. 03/08/23: Camacho balance score of 43/56 STG Duration 03/04/23 (Goal met 03/08/23: 43/ 56) Vehicle Window Tinter Goal (LTG) Pt with improved balance with improved Camacho balance score of 48/56 03/26/23: 47/56 Camacho Balance score LTG Duration 04/30/23 Strength Impairment Strength Impairment Pt able to complete 5 STS squats in 34.7 seconds with minimal use of unilateral UE at chair that is 20 inches in height. Short Term Goal (STG) Pt able to complete 5 STS squats in 25 seconds without use of UE at chair that is 20 inches in height. Goal Met: 03/04/23 Pt able to complete in 25 seconds. STG Duration 03/05/23 Vehicle Window Tinter Goal (LTG) Pt able to complete 5 STS squats in 18 seconds without use of UE at chair that is 20 inches in height. 03/29/23: Pt able to do 5 STS squats in 19 seconds without UE support. 6MWT Impairment Endurance Impairment Pt able to ambulate 886 ft with unilateral trekking pole in 6 minutes. Short Term Goal (STG) Pt able to ambulate 1000 ft with unilateral trekking pole in 6 minutes. Goal unmet on 03/04/23. Pt ambulated 804 ft. Pt reports increase in LBP with walking. STG Duration 03/05/23 Vehicle Window Tinter Goal (LTG) Pt able to ambulate 1150 ft with unilateral trekking pole in 6 minutes. Goal unmet on 03/29/23: Pt ambulated 805ft. LTG Duration 04/30/23 Assessment Summary Assessment Pt demonstrated improved upright posture and glute activation with pallof press and resisted shoulder ext/row, though continues to require cueing. Pt with reported fatigue of LE with stuttle squats with progression of resistance with bilateral squat. Pt continues to demonstrate difficulty with knee control in standing, demonstrating hyperextension with standing activities. Physical Therapy Plan Frequency and Duration Frequency of Treatment 2x/Week Duration of treatment (weeks) 11 Plan of Care Start Date 02/12/23 Plan of Care End Date 04/30/23 Therapeutic Interventions Therapeutic Interventions Balance Training,Coordination Training,Gait Training,Home Exercise Program,Manual Therapy,Neuromuscular Re- education,Patient/Caregiver Education,Self-Care/Home Management,Soft Tissue Mobilization,Taping, Therapeutic Activities, Therapeutic Exercises Modalities Cold Pack/Ice Massage,Hot Packs Next Visit Focus/Plan Next Note Type Treatment Note Next Visit Plan Cont to progress HEP Progress strength, endurance and balance as tolerated
--- NOTE | 2023-04-19 12:20 | PT.OTN ---
Current Diagnoses Unsteadiness on feet (04/19/23) Other abnormalities of gait and mobility (04/19/23) Weakness (04/19/23) Physical Therapy Treatment Note PT-OP-A Visit Information Start: 02/12/23 16:06 Freq: Status: Active Protocol: Document 04/19/23 12:20 AM (Rec: 04/19/23 15:05 AM [id number]) Out-Patient Physical Therapy Visit Information Visit Information Visit Type Treatment Note Visit Start Time 12:18 Visit Stop Time 13:00 Total Visit Minutes 42 Visit Number 17 PT-OP-B Current Condition Start: 02/12/23 16:06 Freq: Status: Active Protocol: Document 02/25/23 13:31 AM (Rec: 02/25/23 14:17 AM [id number]) Current Condition History of Current Condition Onset Date 2020 Current Complaints weakness, unsteadiness History of Current Condition Pt reports that she would like to improve her balance, strength and endurance. Pt with hx of bilateral TKA. Pt had a fall in Dec 2020 and fractured her L patella. She wore a knee immplizer and had surgery, though continues to have difficulty with knee. Pt reports that she locks knee in standing for stability. Pt reports that she walks with walking stick for community ambulation and no AD with household. Pt denies fall since her fall in 2020. Pt reports that she is able to ambulate 2-3 blocks before need to sit because of knee pain and fatigue. Pt reports that she recently got a recumbent bike and plans to use it daily for 20 min. Prior Treatments and Tests Prior PT for knees, back and balance issues Future Testing and Treatments Planned Pt will see her PCP next week and hoping to get low back x- rays PT-OP-C Subjective Start: 02/12/23 16:06 Freq: Status: Active Protocol: Document 04/19/23 12:20 AM (Rec: 04/19/23 15:05 AM [id number]) OP-PT Subjective Patient Comments Patient Comments Pt reports that she is stiff and sore today from traveling over the weekend. Pt reports that she was in the car [address] PT-OP-D Balance Start: 02/12/23 16:06 Freq: Status: Active Protocol: Document 03/29/23 13:33 AM (Rec: 03/29/23 14:18 AM [id number]) Camacho Balance Assessment Evaluation Sitting to Standing Ability Independent w/out Hands Unsupported Stance Safely- 2 minutes Sitting Unsupported, Feet on Floor Safely- 2 minutes Standing to Sitting Ability Safely, Minimal Hand Use Transfer Ability Safely, Minimal Hand Use Unsupported Stance- Eyes Closed Supervision, 10 seconds Unsupported Stance- Eyes Open Supervision to maintain Reaching Forward Standing Confidently, 10 inches Pick- Up Object From Floor Independent/Safe Look Behind Shoulder - Standing Shifts Weight Well Turning 360 Degrees Turns , < 4 secs Unsupported Stance, Alternating Feet on (I)- 8 Steps in > 20 secs Stair Unsupported Tandem Stance Small Step- 30 seconds Unilateral Leg Stance Lifts Leg/Unable to Hold Total Score Camacho Total Score (out of 56 points) 47 PT-OP-E Functional Tests Start: 02/12/23 16:06 Freq: Status: Active Protocol: Document 03/29/23 13:33 AM (Rec: 03/29/23 14:18 AM [id number]) Functional Tests Five Times Sit to Stand Test Score 18.7 Comments 20 in height PT-OP-G Mobility & Gait Start: 02/12/23 16:06 Freq: Status: Active Protocol: Document 02/25/23 13:31 AM (Rec: 02/25/23 14:18 AM [id number]) OP Gait Assessment Gait Gait Assistance Required: Independent Gait Deviations General Gait Pattern Antalgic Factors Limiting Gait Function Factors Limiting Gait Function Decreased Strength,Pain,Poor Balance Comments Gait Comments Pt ambulates with unilateral trekking pole. PT-OP-J Posture/Palpation/Skin Start: 02/12/23 16:06 Freq: Status: Active Protocol: Document 02/12/23 16:07 AM (Rec: 02/12/23 17:26 AM [id number]) Posture Evaluation Position Standing L-Spine Posture Flexed Pelvis Posture Anteriorly Tilted PT-OP-M Strength Start: 02/12/23 16:06 Freq: Status: Active Protocol: Document 02/12/23 16:07 AM (Rec: 02/12/23 17:26 AM [id number]) Hip Strength Hip Manual Muscle Testing Left Flexion (L2) 4- Good- Abduction 4- Good- Adduction 4- Good- Right Flexion (L2) 4- Good- Abduction 4- Good- Adduction 4- Good- Knee Strength Knee Manual Muscle Testing Left Flexion (S2) 4- Good- Extension (L3) 3+ Fair+ Right Flexion (S2) 4- Good- Extension (L3) 4- Good- Ankle/Foot Strength Ankle and Foot Manual Muscle Testing Left Dorsiflexion (L4) 4- Good- Plantarflexion (S1) 4- Good- Right Dorsiflexion (L4) 4- Good- Plantarflexion (S1) 4- Good- PT-OP-Q Treatments Start: 02/12/23 16:06 Freq: Status: Active Protocol: Document 04/19/23 12:20 AM (Rec: 04/19/23 15:05 AM [id number]) Cardio Equipment Recumbent Stepper (Sci-Fit) Duration (Minutes) 8 Resistance 8 Seat Position 14 Other UE/LE Gym Equipment Shuttle Recovery Unilateral Squats Details corrections in LE alignment required; cues to not hyperext LLE Resistance 62# (2 navy bands) Shuttle Recovery Platform Stable Reps/Time x10 ea LE Bilateral Heel Raises Details tactile cues not to hyperext LLE Resistance 75# (3 navy) Shuttle Recovery Platform Stable Reps/Time 2x20 Therapeutic Exercises Supine Exercises Bent Knee fall out Side bilateral Reps/Minutes 2x10 Comments cues for trunk stab Hip flexor stretch Side bilateral Reps/Minutes 2x30 sec Comments manual assist from PT SKTC Side bilateral Reps/Minutes 2x30 sec ea Sidelying Exercises Clamshell Side bilateral Reps/Minutes 2x10 Comments manual assist to prevent pelvic rotation PT-OP-T Assessment and Plan Start: 02/12/23 16:06 Freq: Status: Active Protocol: Document 04/19/23 12:20 AM (Rec: 04/19/23 15:05 AM [id number]) Physical Therapy Assessment Goals Tandem stance Impairment Balance Impairment Pt able to hold tandem stance for 10 seconds, requiring use of hands to achieve position. Short Term Goal (STG) Pt able to hold tandem stance bilaterally for 16 seconds. 03/04/23: Goal progressing. Pt able to hold for 15 seconds bilaterally. STG Duration 03/04/23 Fdc Goal (LTG) Pt able to hold tandem stance for 25 seconds bilaterally. 03/26/23: Pt able to hold 15 seconds bilaterally LTG Duration 04/30/23 HEP Impairment Pt with limited HEP Fdc Goal (LTG) Pt is independent with HEP LTG Duration 04/30/23 Balance Impairment Camacho balance Impairment Camacho balance score of 38/56 Short Term Goal (STG) Pt with improved balance with improved Camacho balance score of 43/56. 03/08/23: Camacho balance score of 43/56 STG Duration 03/04/23 (Goal met 03/08/23: 43/ 56) Rink Rat Goal (LTG) Pt with improved balance with improved Camacho balance score of 48/56 03/26/23: 47/56 Camacho Balance score LTG Duration 04/30/23 Strength Impairment Strength Impairment Pt able to complete 5 STS squats in 34.7 seconds with minimal use of unilateral UE at chair that is 20 inches in height. Short Term Goal (STG) Pt able to complete 5 STS squats in 25 seconds without use of UE at chair that is 20 inches in height. Goal Met: 03/04/23 Pt able to complete in 25 seconds. STG Duration 03/05/23 Rink Rat Goal (LTG) Pt able to complete 5 STS squats in 18 seconds without use of UE at chair that is 20 inches in height. 03/29/23: Pt able to do 5 STS squats in 19 seconds without UE support. 6MWT Impairment Endurance Impairment Pt able to ambulate 886 ft with unilateral trekking pole in 6 minutes. Short Term Goal (STG) Pt able to ambulate 1000 ft with unilateral trekking pole in 6 minutes. Goal unmet on 03/04/23. Pt ambulated 804 ft. Pt reports increase in LBP with walking. STG Duration 03/05/23 Fdc Goal (LTG) Pt able to ambulate 1150 ft with unilateral trekking pole in 6 minutes. Goal unmet on 03/29/23: Pt ambulated 805ft. LTG Duration 04/30/23 Assessment Summary Assessment Pt with increased difficulty with unilateral squats today secondary to strength and LBP, particularly on R. Pt requires cueing for trunk stabilization with core strengthening. Pt with stiffness at cinthia hip flexors with stretching. Pt with decreased tolerance to exercise today secondary to recent travel, therefore tx modified to include more table exercises. Physical Therapy Plan Frequency and Duration Frequency of Treatment 2x/Week Duration of treatment (weeks) 11 Plan of Care Start Date 02/12/23 Plan of Care End Date 04/30/23 Therapeutic Interventions Therapeutic Interventions Balance Training,Coordination Training,Gait Training,Home Exercise Program,Manual Therapy,Neuromuscular Re- education,Patient/Caregiver Education,Self-Care/Home Management,Soft Tissue Mobilization,Taping, Therapeutic Activities, Therapeutic Exercises Modalities Cold Pack/Ice Massage,Hot Packs Next Visit Focus/Plan Next Note Type Treatment Note Next Visit Plan Cont to progress HEP Progress strength, endurance and balance as tolerated
--- NOTE | 2023-04-26 12:29 | PT.OPPOC ---
Physical, Occupational & Speech Therapy At [facility] Current Diagnoses Unsteadiness on feet (04/29/23) Other abnormalities of gait and mobility (04/29/23) Weakness (04/29/23) Visit Care Team Role Provider Type Truong Saucedo MD Family Provider Physician Specialty: [facility] Address: [address] [place] [address], [address] Email: [email or web address] WILLIAM Robert Attending Provider [employer] Primary Care Provider Referring Provider Specialty: [facility] Address: [address] [place] [address], [id number] Email: [email or web address] Plan Of Care PT-OP-T Assessment and Plan Start: 02/12/23 16:06 Freq: Status: Active Protocol: Document 04/26/23 12:29 NM (Rec: 04/29/23 12:31 NM [id number]) Physical Therapy Assessment Rehab Potential Rehabilitation Potential Good Evaluation Complexity Number of Personal Factors/Comorbidities 1-2 Number of Body Systems Impaired 1-2 Clinical Presentation at Evaluation Stable Impairments Impairments Activity Tolerance,Balance, Coordination,Functional Activities,Functional Mobility ,Gait,Pain,Posture,ROM,Soft Tissue Mobility,Strength, Transfers Goals Tandem stance Impairment Balance Impairment Pt able to hold tandem stance for 10 seconds, requiring use of hands to achieve position. Short Term Goal (STG) Pt able to hold tandem stance bilaterally for 16 seconds. 03/04/23: Goal progressing. Pt able to hold for 15 seconds bilaterally. STG Duration 03/04/23 Retirement Goal (LTG) Pt able to hold tandem stance for 25 seconds bilaterally. GOAL UNMET 04/26/23: unable to hold 10 sec without LOB 03/26/23: Pt able to hold 15 seconds bilaterally LTG Duration 04/30/23 HEP Impairment Pt with limited HEP Hotel Front Desk Agent Goal (LTG) Pt is independent with HEP LTG Duration 04/30/23 Balance Impairment Camacho balance Impairment Camacho balance score of 38/56 Short Term Goal (STG) Pt with improved balance with improved Camacho balance score of 43/56. 03/08/23: Camacho balance score of 43/56 STG Duration 03/04/23 (Goal met 03/08/23: 43/ 56) Hotel Front Desk Agent Goal (LTG) Pt with improved balance with improved Camacho balance score of 48/56 03/26/23: 47/56 Camacho Balance score GOAL NOT MET 04/26/23: 47/56 ( unchanged) LTG Duration 04/30/23 Strength Impairment Strength Impairment Pt able to complete 5 STS squats in 34.7 seconds with minimal use of unilateral UE at chair that is 20 inches in height. Short Term Goal (STG) Pt able to complete 5 STS squats in 25 seconds without use of UE at chair that is 20 inches in height. Goal Met: 03/04/23 Pt able to complete in 25 seconds. STG Duration 03/05/23 Hotel Front Desk Agent Goal (LTG) Pt able to complete 5 STS squats in 18 seconds without use of UE at chair that is 20 inches in height. UNMET 04/26/23: 22 sec 5x STS squats(regression) 03/29/23: Pt able to do 5 STS squats in 19 seconds without UE support. LTG Duration 04/30/23 6MWT Impairment Endurance Impairment Pt able to ambulate 886 ft with unilateral trekking pole in 6 minutes. Short Term Goal (STG) Pt able to ambulate 1000 ft with unilateral trekking pole in 6 minutes. Goal unmet on 03/04/23. Pt ambulated 804 ft. Pt reports increase in LBP with walking. STG Duration 03/05/23 Retirement Goal (LTG) Pt able to ambulate 1150 ft with unilateral trekking pole in 6 minutes. GOAL UNMET 04/26/23: 874 FT with uni trekking pole Goal unmet on 03/29/23: Pt ambulated 805ft. LTG Duration 04/30/23 Progress Towards Goals Progress Towards Goals Slow Progress - Other Assessment Summary Assessment Pt is slowly progressing toward her goals, but her progress has stagnated since last PN. Her 6MWT has improved regarding distance, performed with trekking pole. Pt able to self-correct if LOB during gait on stable surface, but not on elevated/unstable surfaces. She would benefit from a more stable AD for maintaining balance, which will be addressed in future sessions. Camacho balance results are 47/56 (no change since last PN), which is still within a fall risk range. She has difficulty with maintain balance during semi-tandem stance (unable to perform full tandem with LLE) and during stepping onto a stair. Pt BLE strength is improved observably since last PN, which now needs to be redirected to hip/glute focused to maximize hip strategy for better balance. Pt would benefit from skilled PT to address impairments in balance to promote better safety awareness during activity, promote safer gait melvin during community ambulation, and to decrease fall risk. Physical Therapy Plan Frequency and Duration Frequency of Treatment 2x/Week Duration of treatment (weeks) 17 Plan of Care Start Date 02/12/23 Plan of Care End Date 06/11/23 Therapeutic Interventions Therapeutic Interventions Balance Training,Coordination Training,Gait Training,Home Exercise Program,Manual Therapy,Neuromuscular Re- education,Patient/Caregiver Education,Self-Care/Home Management,Soft Tissue Mobilization,Taping, Therapeutic Activities, Therapeutic Exercises Modalities Cold Pack/Ice Massage,Hot Packs Next Visit Focus/Plan Next Note Type Treatment Note Next Visit Plan Cont to progress HEP focus on higher level balance and gait (melvni uneven surfaces, inclines, etc) Plan of Care Dates Plan of Care Start Date 02/12/23 Plan of Care End Date 06/11/23 Electronically Signed by: Vanessa Nation, PT 04/29/23 5233 If you are in agreement with this Plan of Care, please return a signed and dated copy. I have reviewed this Plan of Care and certify that the skilled therapy services above are required to meet the patient?s needs. Physician Signature Date Printed Name and Credentials Clinical Instructor Signature Printed Name and Credentials
--- NOTE | 2023-04-26 12:29 | PT.OTN ---
Current Diagnoses Unsteadiness on feet (04/26/23) Other abnormalities of gait and mobility (04/26/23) Weakness (04/26/23) Physical Therapy Treatment Note PT-OP-A Visit Information Start: 02/12/23 16:06 Freq: Status: Active Protocol: Document 04/26/23 12:29 NM (Rec: 04/26/23 12:43 NM [id number]) Out-Patient Physical Therapy Visit Information Visit Information Visit Type Treatment Note Visit Start Time 10:30 Visit Stop Time 11:15 Total Visit Minutes 45 Visit Number 18 Evaluation Information Evaluation Date 02/12/23 PT-OP-B Current Condition Start: 02/12/23 16:06 Freq: Status: Active Protocol: Document 02/25/23 13:31 AM (Rec: 02/25/23 14:17 AM [id number]) Current Condition History of Current Condition Onset Date 2020 Current Complaints weakness, unsteadiness History of Current Condition Pt reports that she would like to improve her balance, strength and endurance. Pt with hx of bilateral TKA. Pt had a fall in Dec 2020 and fractured her L patella. She wore a knee immplizer and had surgery, though continues to have difficulty with knee. Pt reports that she locks knee in standing for stability. Pt reports that she walks with walking stick for community ambulation and no AD with household. Pt denies fall since her fall in 2020. Pt reports that she is able to ambulate 2-3 blocks before need to sit because of knee pain and fatigue. Pt reports that she recently got a recumbent bike and plans to use it daily for 20 min. Prior Treatments and Tests Prior PT for knees, back and balance issues Future Testing and Treatments Planned Pt will see her PCP next week and hoping to get low back x- rays PT-OP-C Subjective Start: 02/12/23 16:06 Freq: Status: Active Protocol: Document 04/26/23 12:29 NM (Rec: 04/26/23 12:43 NM [id number]) OP-PT Subjective Patient Comments Patient Comments Pt reports that she is feeling well with no pain or discomfort. She does not like having morning appointments. She reports min compliance with her HEP but she is most concerned about her balance. PT-OP-D Balance Start: 02/12/23 16:06 Freq: Status: Active Protocol: Document 03/29/23 13:33 AM (Rec: 03/29/23 14:18 AM [id number]) Camacho Balance Assessment Evaluation Sitting to Standing Ability Independent w/out Hands Unsupported Stance Safely- 2 minutes Sitting Unsupported, Feet on Floor Safely- 2 minutes Standing to Sitting Ability Safely, Minimal Hand Use Transfer Ability Safely, Minimal Hand Use Unsupported Stance- Eyes Closed Supervision, 10 seconds Unsupported Stance- Eyes Open Supervision to maintain Reaching Forward Standing Confidently, 10 inches Pick- Up Object From Floor Independent/Safe Look Behind Shoulder - Standing Shifts Weight Well Turning 360 Degrees Turns , < 4 secs Unsupported Stance, Alternating Feet on (I)- 8 Steps in > 20 secs Stair Unsupported Tandem Stance Small Step- 30 seconds Unilateral Leg Stance Lifts Leg/Unable to Hold Total Score Camacho Total Score (out of 56 points) 47 PT-OP-E Functional Tests Start: 02/12/23 16:06 Freq: Status: Active Protocol: Document 03/29/23 13:33 AM (Rec: 03/29/23 14:18 AM [id number]) Functional Tests Five Times Sit to Stand Test Score 18.7 Comments 20 in height PT-OP-G Mobility & Gait Start: 02/12/23 16:06 Freq: Status: Active Protocol: Document 02/25/23 13:31 AM (Rec: 02/25/23 14:18 AM [id number]) OP Gait Assessment Gait Gait Assistance Required: Independent Gait Deviations General Gait Pattern Antalgic Factors Limiting Gait Function Factors Limiting Gait Function Decreased Strength,Pain,Poor Balance Comments Gait Comments Pt ambulates with unilateral trekking pole. PT-OP-J Posture/Palpation/Skin Start: 02/12/23 16:06 Freq: Status: Active Protocol: Document 02/12/23 16:07 AM (Rec: 02/12/23 17:26 AM [id number]) Posture Evaluation Position Standing L-Spine Posture Flexed Pelvis Posture Anteriorly Tilted PT-OP-M Strength Start: 02/12/23 16:06 Freq: Status: Active Protocol: Document 02/12/23 16:07 AM (Rec: 02/12/23 17:26 AM [id number]) Hip Strength Hip Manual Muscle Testing Left Flexion (L2) 4- Good- Abduction 4- Good- Adduction 4- Good- Right Flexion (L2) 4- Good- Abduction 4- Good- Adduction 4- Good- Knee Strength Knee Manual Muscle Testing Left Flexion (S2) 4- Good- Extension (L3) 3+ Fair+ Right Flexion (S2) 4- Good- Extension (L3) 4- Good- Ankle/Foot Strength Ankle and Foot Manual Muscle Testing Left Dorsiflexion (L4) 4- Good- Plantarflexion (S1) 4- Good- Right Dorsiflexion (L4) 4- Good- Plantarflexion (S1) 4- Good- PT-OP-Q Treatments Start: 02/12/23 16:06 Freq: Status: Active Protocol: Document 04/26/23 12:29 NM (Rec: 04/26/23 12:43 NM [id number]) Therapeutic Activity Therapeutic Activity STS Name 5x STS Reps/Minutes 22 sec Comments Performed without UE use, occasionally takes >1 attempt to initially come to stand. Speed decreases with fatigue. Pt able Gait Training Gait Activity 6 MWT Device Used 1 Typesafe pole Level of Assistance SBA Surface stable Distance/Duration 874.3 ft Treatment Focus gait distance, speed, balance Neuro Re-Education Treatment Balance Activities Tandem Details SBA with occasional CGA to steady Surface stable Equipment // bars Reps/Duration 1. 2x30 ea LE, 2. 4x30 ea LE look L/R, 3. 4x30 ea look up /down Comments 1. tandem standing 2. tandem stance while looking R/L for visual scanning, no UE except occasional steadying . More difficult for pt with RLE in front 3. tandem stance while looking up/down for visual scanning, no UE except occasion steadying. Mor difficult with RLE in front. Able to perform with fewer instances of sway than horizontal scanning Other Activities Camacho Details 47/56 Comments Most difficulty with tapping alt LE onto step, tandem stance. Pt LOB with pt attempting to self correct with stepping response, mod A to prevent fall (no fall occurred) PT-OP-T Assessment and Plan Start: 02/12/23 16:06 Freq: Status: Active Protocol: Document 04/26/23 12:29 NM (Rec: 04/26/23 12:43 NM [id number]) Physical Therapy Assessment Goals Tandem stance Impairment Balance Impairment Pt able to hold tandem stance for 10 seconds, requiring use of hands to achieve position. Short Term Goal (STG) Pt able to hold tandem stance bilaterally for 16 seconds. 03/04/23: Goal progressing. Pt able to hold for 15 seconds bilaterally. STG Duration 03/04/23 Alf Goal (LTG) Pt able to hold tandem stance for 25 seconds bilaterally. GOAL UNMET 04/26/23: unable to hold 10 sec without LOB 03/26/23: Pt able to hold 15 seconds bilaterally LTG Duration 04/30/23 HEP Impairment Pt with limited HEP Assistant Director Of Plant Operations Goal (LTG) Pt is independent with HEP LTG Duration 04/30/23 Balance Impairment Camacho balance Impairment Camacho balance score of 38/56 Short Term Goal (STG) Pt with improved balance with improved Camacho balance score of 43/56. 03/08/23: Camacho balance score of 43/56 STG Duration 03/04/23 (Goal met 03/08/23: 43/ 56) Assistant Director Of Plant Operations Goal (LTG) Pt with improved balance with improved Camacho balance score of 48/56 03/26/23: 47/56 Camacho Balance score GOAL NOT MET 04/26/23: 47/56 ( unchanged) LTG Duration 04/30/23 Strength Impairment Strength Impairment Pt able to complete 5 STS squats in 34.7 seconds with minimal use of unilateral UE at chair that is 20 inches in height. Short Term Goal (STG) Pt able to complete 5 STS squats in 25 seconds without use of UE at chair that is 20 inches in height. Goal Met: 03/04/23 Pt able to complete in 25 seconds. STG Duration 03/05/23 Alf Goal (LTG) Pt able to complete 5 STS squats in 18 seconds without use of UE at chair that is 20 inches in height. UNMET 04/26/23: 22 sec 5x STS squats(regression) 03/29/23: Pt able to do 5 STS squats in 19 seconds without UE support. LTG Duration 04/30/23 6MWT Impairment Endurance Impairment Pt able to ambulate 886 ft with unilateral trekking pole in 6 minutes. Short Term Goal (STG) Pt able to ambulate 1000 ft with unilateral trekking pole in 6 minutes. Goal unmet on 03/04/23. Pt ambulated 804 ft. Pt reports increase in LBP with walking. STG Duration 03/05/23 Assistant Director Of Plant Operations Goal (LTG) Pt able to ambulate 1150 ft with unilateral trekking pole in 6 minutes. GOAL UNMET 04/26/23: 874 FT with uni trekking pole Goal unmet on 03/29/23: Pt ambulated 805ft. LTG Duration 04/30/23 Progress Towards Goals Progress Towards Goals Slow Progress - Other Assessment Summary Assessment Pt tolerated treatment well during PN today. Her 6MWT has improved regarding distance, performed with trekking pole. Pt able to self-correct if LOB during gait. Remainder of tmt focus primarily on balance ( retesting Camacho, focus on dynamic balance activities). She has difficulty with maintain balance during semi- tandem stance (unable to perform full tandem with RLE) and during stepping onto a stair. Pt would benefit from skilled PT to address impairments in balance to promote better safety awareness during activity, promote safer gait melvin during community ambulation, and to decrease fall risk. Physical Therapy Plan Frequency and Duration Frequency of Treatment 2x/Week Duration of treatment (weeks) 11 Plan of Care Start Date 02/12/23 Plan of Care End Date 04/30/23 Therapeutic Interventions Therapeutic Interventions Balance Training,Coordination Training,Gait Training,Home Exercise Program,Manual Therapy,Neuromuscular Re- education,Patient/Caregiver Education,Self-Care/Home Management,Soft Tissue Mobilization,Taping, Therapeutic Activities, Therapeutic Exercises Modalities Cold Pack/Ice Massage,Hot Packs Next Visit Focus/Plan Next Note Type Treatment Note Next Visit Plan Cont to progress HEP focus on higher level balance and gait (melvin uneven surfaces, inclines, etc)
--- NOTE | 2023-04-29 14:23 | PT.OTN ---
Current Diagnoses Unsteadiness on feet (04/29/23) Other abnormalities of gait and mobility (04/29/23) Weakness (04/29/23) Physical Therapy Treatment Note PT-OP-A Visit Information Start: 02/12/23 16:06 Freq: Status: Active Protocol: Document 04/29/23 14:06 NM (Rec: 04/29/23 14:23 NM [id number]) Out-Patient Physical Therapy Visit Information Visit Information Visit Type Treatment Note Visit Note 06/09 after PN Visit Start Time 13:05 Visit Stop Time 13:45 Total Visit Minutes 40 Visit Number 19 Evaluation Information Evaluation Date 02/12/23 PT-OP-B Current Condition Start: 02/12/23 16:06 Freq: Status: Active Protocol: Document 02/25/23 13:31 AM (Rec: 02/25/23 14:17 AM [id number]) Current Condition History of Current Condition Onset Date 2020 Current Complaints weakness, unsteadiness History of Current Condition Pt reports that she would like to improve her balance, strength and endurance. Pt with hx of bilateral TKA. Pt had a fall in Dec 2020 and fractured her L patella. She wore a knee immplizer and had surgery, though continues to have difficulty with knee. Pt reports that she locks knee in standing for stability. Pt reports that she walks with walking stick for community ambulation and no AD with household. Pt denies fall since her fall in 2020. Pt reports that she is able to ambulate 2-3 blocks before need to sit because of knee pain and fatigue. Pt reports that she recently got a recumbent bike and plans to use it daily for 20 min. Prior Treatments and Tests Prior PT for knees, back and balance issues Future Testing and Treatments Planned Pt will see her PCP next week and hoping to get low back x- rays PT-OP-C Subjective Start: 02/12/23 16:06 Freq: Status: Active Protocol: Document 04/29/23 14:06 NM (Rec: 04/29/23 14:23 NM [id number]) OP-PT Subjective Patient Comments Patient Comments Pt reports that she is doing well with no back pain. She is fatigued, but not like last session. She would like to continue PT at this time in order to work on her balance. PT-OP-D Balance Start: 02/12/23 16:06 Freq: Status: Active Protocol: Document 03/29/23 13:33 AM (Rec: 03/29/23 14:18 AM [id number]) Camacho Balance Assessment Evaluation Sitting to Standing Ability Independent w/out Hands Unsupported Stance Safely- 2 minutes Sitting Unsupported, Feet on Floor Safely- 2 minutes Standing to Sitting Ability Safely, Minimal Hand Use Transfer Ability Safely, Minimal Hand Use Unsupported Stance- Eyes Closed Supervision, 10 seconds Unsupported Stance- Eyes Open Supervision to maintain Reaching Forward Standing Confidently, 10 inches Pick- Up Object From Floor Independent/Safe Look Behind Shoulder - Standing Shifts Weight Well Turning 360 Degrees Turns , < 4 secs Unsupported Stance, Alternating Feet on (I)- 8 Steps in > 20 secs Stair Unsupported Tandem Stance Small Step- 30 seconds Unilateral Leg Stance Lifts Leg/Unable to Hold Total Score Camacho Total Score (out of 56 points) 47 PT-OP-E Functional Tests Start: 02/12/23 16:06 Freq: Status: Active Protocol: Document 03/29/23 13:33 AM (Rec: 03/29/23 14:18 AM [id number]) Functional Tests Five Times Sit to Stand Test Score 18.7 Comments 20 in height PT-OP-G Mobility & Gait Start: 02/12/23 16:06 Freq: Status: Active Protocol: Document 02/25/23 13:31 AM (Rec: 02/25/23 14:18 AM [id number]) OP Gait Assessment Gait Gait Assistance Required: Independent Gait Deviations General Gait Pattern Antalgic Factors Limiting Gait Function Factors Limiting Gait Function Decreased Strength,Pain,Poor Balance Comments Gait Comments Pt ambulates with unilateral trekking pole. PT-OP-J Posture/Palpation/Skin Start: 02/12/23 16:06 Freq: Status: Active Protocol: Document 02/12/23 16:07 AM (Rec: 02/12/23 17:26 AM [id number]) Posture Evaluation Position Standing L-Spine Posture Flexed Pelvis Posture Anteriorly Tilted PT-OP-M Strength Start: 02/12/23 16:06 Freq: Status: Active Protocol: Document 02/12/23 16:07 AM (Rec: 02/12/23 17:26 AM [id number]) Hip Strength Hip Manual Muscle Testing Left Flexion (L2) 4- Good- Abduction 4- Good- Adduction 4- Good- Right Flexion (L2) 4- Good- Abduction 4- Good- Adduction 4- Good- Knee Strength Knee Manual Muscle Testing Left Flexion (S2) 4- Good- Extension (L3) 3+ Fair+ Right Flexion (S2) 4- Good- Extension (L3) 4- Good- Ankle/Foot Strength Ankle and Foot Manual Muscle Testing Left Dorsiflexion (L4) 4- Good- Plantarflexion (S1) 4- Good- Right Dorsiflexion (L4) 4- Good- Plantarflexion (S1) 4- Good- PT-OP-Q Treatments Start: 02/12/23 16:06 Freq: Status: Active Protocol: Document 04/29/23 14:06 NM (Rec: 04/29/23 14:23 NM [id number]) Gait Training Gait Activity Incline/Decline Ambulation Device Used 4WW Level of Assistance CGA to steady on decline Surface unstable (concrete) Distance/Duration x200 ft outdoors, ramp 2x20 ft ea Treatment Focus Weight shift during descent, upright posture, normal gait, 4WW use Comments Cues for toe clearance, upright posture, and posterior weight shift rather than forward flex/weight shift. Use of 4ww for more stable AD support. Neuro Re-Education Treatment Balance Activities Incline/Decline Details min A-mod A Surface unstable Equipment mat ramp, 1 trekking pole Reps/Duration 3 reps x 8ft ea direction Comments Ambulation on uneven ramp. CGA for incline, min-mod A for decline. Cues for posterior weight shift and upright posture to prevent fwd fall Tandem Details CGA to steady Surface stable Equipment //bars Reps/Duration 2x30 Comments Use UE to place feet, unable to move feet into position without UE support w/o LOB. Semi tandem Details SBA Surface stable Equipment //bars Reps/Duration 2x30 ea Comments 1. semi-tandem stance, performed on ea LE 2. semi-tandem stance with visual scanning and cognition (naming objects or answering questions while turning head) Step taps Details CGA Surface stable Equipment 6 step Reps/Duration 1x10 ea LE (1 set) Comments 1. 1 UE support (fingers only) step up 2. 1 UE support (fingers only) single leg tap 3. 1 UE support (fingers only) alt single leg tap PT-OP-T Assessment and Plan Start: 02/12/23 16:06 Freq: Status: Active Protocol: Document 04/29/23 14:06 NM (Rec: 04/29/23 14:23 NM [id number]) Physical Therapy Assessment Rehab Potential Rehabilitation Potential Good Evaluation Complexity Number of Personal Factors/Comorbidities 1-2 Number of Body Systems Impaired 1-2 Clinical Presentation at Evaluation Stable Impairments Impairments Activity Tolerance,Balance, Coordination,Functional Activities,Functional Mobility ,Gait,Pain,Posture,ROM,Soft Tissue Mobility,Strength, Transfers Goals Tandem stance Impairment Balance Impairment Pt able to hold tandem stance for 10 seconds, requiring use of hands to achieve position. Short Term Goal (STG) Pt able to hold tandem stance bilaterally for 16 seconds. 03/04/23: Goal progressing. Pt able to hold for 15 seconds bilaterally. STG Duration 03/04/23 Halfway Goal (LTG) Pt able to hold tandem stance for 25 seconds bilaterally. GOAL UNMET 04/26/23: unable to hold 10 sec without LOB 03/26/23: Pt able to hold 15 seconds bilaterally LTG Duration 04/30/23 HEP Impairment Pt with limited HEP Matrix Inspector Goal (LTG) Pt is independent with HEP LTG Duration 04/30/23 Balance Impairment Camacho balance Impairment Camacho balance score of 38/56 Short Term Goal (STG) Pt with improved balance with improved Camacho balance score of 43/56. 03/08/23: Camacho balance score of 43/56 STG Duration 03/04/23 (Goal met 03/08/23: 43/ 56) Halfway Goal (LTG) Pt with improved balance with improved Camacho balance score of 48/56 03/26/23: 47/56 Camacho Balance score GOAL NOT MET 04/26/23: 47/56 ( unchanged) LTG Duration 04/30/23 Strength Impairment Strength Impairment Pt able to complete 5 STS squats in 34.7 seconds with minimal use of unilateral UE at chair that is 20 inches in height. Short Term Goal (STG) Pt able to complete 5 STS squats in 25 seconds without use of UE at chair that is 20 inches in height. Goal Met: 03/04/23 Pt able to complete in 25 seconds. STG Duration 03/05/23 Matrix Inspector Goal (LTG) Pt able to complete 5 STS squats in 18 seconds without use of UE at chair that is 20 inches in height. UNMET 11/27/23: 22 sec 5x STS squats(regression) 03/29/23: Pt able to do 5 STS squats in 19 seconds without UE support. LTG Duration 04/30/23 6MWT Impairment Endurance Impairment Pt able to ambulate 886 ft with unilateral trekking pole in 6 minutes. Short Term Goal (STG) Pt able to ambulate 1000 ft with unilateral trekking pole in 6 minutes. Goal unmet on 03/04/23. Pt ambulated 804 ft. Pt reports increase in LBP with walking. STG Duration 03/05/23 Halfway Goal (LTG) Pt able to ambulate 1150 ft with unilateral trekking pole in 6 minutes. GOAL UNMET 04/26/23: 874 FT with uni trekking pole Goal unmet on 03/29/23: Pt ambulated 805ft. LTG Duration 04/30/23 Progress Towards Goals Progress Towards Goals Slow Progress - Other Assessment Summary Assessment Pt tolerated tmt well. Tmt focus today on balance and gait, especially on unstable surfaces. Gait training with 4WW on outside ramp to target safety during descent. Pt is CGA and requires cues for foot clearance/upright posture because she tries to lean forward while descending thus increasing fall risk. Balance training using tandem, semi- tandem stance, and step ups for improved stability in narrow base and single leg. Pt would benefit from skilled PT to address impairments in dynamic balance and gait in order to decrease fall risk and increase safety awareness for improved QOL. Physical Therapy Plan Frequency and Duration Frequency of Treatment 2x/Week Duration of treatment (weeks) 17 Plan of Care Start Date 02/12/23 Plan of Care End Date 06/11/23 Therapeutic Interventions Therapeutic Interventions Balance Training,Coordination Training,Gait Training,Home Exercise Program,Manual Therapy,Neuromuscular Re- education,Patient/Caregiver Education,Self-Care/Home Management,Soft Tissue Mobilization,Taping, Therapeutic Activities, Therapeutic Exercises Modalities Cold Pack/Ice Massage,Hot Packs Next Visit Focus/Plan Next Note Type Treatment Note Next Visit Plan Cont to progress HEP focus on higher level balance and gait (melvin uneven surfaces, inclines, etc)
--- NOTE | 2023-05-04 10:36 | PT.OTN ---
Current Diagnoses Unsteadiness on feet (05/04/23) Other abnormalities of gait and mobility (05/04/23) Weakness (05/04/23) Physical Therapy Treatment Note PT-OP-A Visit Information Start: 02/12/23 16:06 Freq: Status: Active Protocol: Document 05/04/23 09:59 NBM (Rec: 05/04/23 10:36 [facility] [id number]) Out-Patient Physical Therapy Visit Information Visit Information Visit Type Treatment Note Visit Note 07/10 after PN Visit Start Time 09:48 Visit Stop Time 10:31 Total Visit Minutes 43 Visit Number 20 Number of TELEVISION NEWSCAST DIRECTOR Visits 1 PT-OP-B Current Condition Start: 02/12/23 16:06 Freq: Status: Active Protocol: Document 02/25/23 13:31 AM (Rec: 02/25/23 14:17 AM [id number]) Current Condition History of Current Condition Onset Date 2020 Current Complaints weakness, unsteadiness History of Current Condition Pt reports that she would like to improve her balance, strength and endurance. Pt with hx of bilateral TKA. Pt had a fall in Dec 2020 and fractured her L patella. She wore a knee immplizer and had surgery, though continues to have difficulty with knee. Pt reports that she locks knee in standing for stability. Pt reports that she walks with walking stick for community ambulation and no AD with household. Pt denies fall since her fall in 2020. Pt reports that she is able to ambulate 2-3 blocks before need to sit because of knee pain and fatigue. Pt reports that she recently got a recumbent bike and plans to use it daily for 20 min. Prior Treatments and Tests Prior PT for knees, back and balance issues Future Testing and Treatments Planned Pt will see her PCP next week and hoping to get low back x- rays PT-OP-C Subjective Start: 02/12/23 16:06 Freq: Status: Active Protocol: Document 05/04/23 09:59 NBM (Rec: 05/04/23 10:36 [facility] [id number]) OP-PT Subjective Patient Comments Patient Comments Pt reports she slept well two nights ago, did some lifting and bending yesterday with boxes, slept terribly last night with restless legs, got up at 6am and ate then tried sleeping in a chair but that didn't work. Her back is hurting more today. PT-OP-D Balance Start: 02/12/23 16:06 Freq: Status: Active Protocol: Document 03/29/23 13:33 AM (Rec: 03/29/23 14:18 AM [id number]) Camacho Balance Assessment Evaluation Sitting to Standing Ability Independent w/out Hands Unsupported Stance Safely- 2 minutes Sitting Unsupported, Feet on Floor Safely- 2 minutes Standing to Sitting Ability Safely, Minimal Hand Use Transfer Ability Safely, Minimal Hand Use Unsupported Stance- Eyes Closed Supervision, 10 seconds Unsupported Stance- Eyes Open Supervision to maintain Reaching Forward Standing Confidently, 10 inches Pick- Up Object From Floor Independent/Safe Look Behind Shoulder - Standing Shifts Weight Well Turning 360 Degrees Turns , < 4 secs Unsupported Stance, Alternating Feet on (I)- 8 Steps in > 20 secs Stair Unsupported Tandem Stance Small Step- 30 seconds Unilateral Leg Stance Lifts Leg/Unable to Hold Total Score Camacho Total Score (out of 56 points) 47 PT-OP-E Functional Tests Start: 02/12/23 16:06 Freq: Status: Active Protocol: Document 03/29/23 13:33 AM (Rec: 03/29/23 14:18 AM [id number]) Functional Tests Five Times Sit to Stand Test Score 18.7 Comments 20 in height PT-OP-G Mobility & Gait Start: 02/12/23 16:06 Freq: Status: Active Protocol: Document 02/25/23 13:31 AM (Rec: 02/25/23 14:18 AM [id number]) OP Gait Assessment Gait Gait Assistance Required: Independent Gait Deviations General Gait Pattern Antalgic Factors Limiting Gait Function Factors Limiting Gait Function Decreased Strength,Pain,Poor Balance Comments Gait Comments Pt ambulates with unilateral trekking pole. PT-OP-J Posture/Palpation/Skin Start: 02/12/23 16:06 Freq: Status: Active Protocol: Document 02/12/23 16:07 AM (Rec: 02/12/23 17:26 AM [id number]) Posture Evaluation Position Standing L-Spine Posture Flexed Pelvis Posture Anteriorly Tilted PT-OP-M Strength Start: 02/12/23 16:06 Freq: Status: Active Protocol: Document 02/12/23 16:07 AM (Rec: 02/12/23 17:26 AM [id number]) Hip Strength Hip Manual Muscle Testing Left Flexion (L2) 4- Good- Abduction 4- Good- Adduction 4- Good- Right Flexion (L2) 4- Good- Abduction 4- Good- Adduction 4- Good- Knee Strength Knee Manual Muscle Testing Left Flexion (S2) 4- Good- Extension (L3) 3+ Fair+ Right Flexion (S2) 4- Good- Extension (L3) 4- Good- Ankle/Foot Strength Ankle and Foot Manual Muscle Testing Left Dorsiflexion (L4) 4- Good- Plantarflexion (S1) 4- Good- Right Dorsiflexion (L4) 4- Good- Plantarflexion (S1) 4- Good- PT-OP-Q Treatments Start: 02/12/23 16:06 Freq: Status: Active Protocol: Document 05/04/23 09:59 NBM (Rec: 05/04/23 10:36 NBM [id number]) Cardio Equipment Recumbent Bicycle Duration (Minutes) 10 Resistance 8 Seat Position 11 Gym Equipment Shuttle Recovery Unilateral Squats Details corrections in LE alignment required; cues to not hyperext LLE Resistance 62# (2 navy bands) Shuttle Recovery Platform Stable Reps/Time x20 ea LE Bilateral Squats Resistance 87# (3 navy) Shuttle Recovery Platform Stable Reps/Time 2x20, cues for eccentric control and to prevent LLE hyperext Therapeutic Exercises Supine Exercises calf stretch Side bilateral Resistance 62# Equipment Used Shuttle Recovery Reps/Minutes x1 min Comments feels really good LTR Supine Exercise Name lower trunk rotation Side bilateral Reps/Minutes x10 ea Comments vc for PPT to avoid lumbar hyperextension Hip flexor stretch Side bilateral Reps/Minutes 2x30 sec Standing Exercises marching Standing Exercise Name banded around feet 1.standing 2. fwd march Side bilateral Resistance Lvl 1 Tb Equipment Used handrail Reps/Minutes 1. x10 ea 2. 2x10 ft Comments cues for upright posture Resisted side step Standing Exercise Name Resisted side step Resistance [place] TB Equipment Used // bars Neuro Re-Education Treatment Balance Activities Incline/Decline Details min A-mod A Surface unstable Equipment mat ramp, 1 trekking pole Reps/Duration 3 reps x 8ft ea direction Comments Ambulation on uneven ramp. CGA for incline, min-mod A for decline. Cues for posterior weight shift and upright posture to prevent fwd fall PT-OP-R Modalities Start: 02/12/23 16:06 Freq: Status: Active Protocol: Document 05/04/23 09:59 NBM (Rec: 05/04/23 10:36 [facility] [id number]) Hot Pack/Cold Pack Treatment Hot Pack Location lumbar Patient Position Hooklying Treatment Duration (minutes) 15 Patient Tolerance Good PT-OP-T Assessment and Plan Start: 02/12/23 16:06 Freq: Status: Active Protocol: Document 05/04/23 09:59 NBM (Rec: 05/04/23 10:36 [facility] [id number]) Physical Therapy Assessment Goals Tandem stance Impairment Balance Impairment Pt able to hold tandem stance for 10 seconds, requiring use of hands to achieve position. Short Term Goal (STG) Pt able to hold tandem stance bilaterally for 16 seconds. 03/04/23: Goal progressing. Pt able to hold for 15 seconds bilaterally. STG Duration 03/04/23 [facility] Goal (LTG) Pt able to hold tandem stance for 25 seconds bilaterally. GOAL UNMET 04/26/23: unable to hold 10 sec without LOB 03/26/23: Pt able to hold 15 seconds bilaterally LTG Duration 04/30/23 HEP Impairment Pt with limited HEP Blast Furnace Keeper Helper Goal (LTG) Pt is independent with HEP LTG Duration 04/30/23 Balance Impairment Camacho balance Impairment Camacho balance score of 38/56 Short Term Goal (STG) Pt with improved balance with improved Camacho balance score of 43/56. 03/08/23: Camacho balance score of 43/56 STG Duration 03/04/23 (Goal met 03/08/23: 43/ 56) [facility] Goal (LTG) Pt with improved balance with improved Camacho balance score of 48/56 03/26/23: 47/56 Camacho Balance score GOAL NOT MET 04/26/23: 47/56 ( unchanged) LTG Duration 04/30/23 Strength Impairment Strength Impairment Pt able to complete 5 STS squats in 34.7 seconds with minimal use of unilateral UE at chair that is 20 inches in height. Short Term Goal (STG) Pt able to complete 5 STS squats in 25 seconds without use of UE at chair that is 20 inches in height. Goal Met: 03/04/23 Pt able to complete in 25 seconds. STG Duration 03/05/23 [facility] Goal (LTG) Pt able to complete 5 STS squats in 18 seconds without use of UE at chair that is 20 inches in height. UNMET 04/26/23: 22 sec 5x STS squats(regression) 03/29/23: Pt able to do 5 STS squats in 19 seconds without UE support. LTG Duration 04/30/23 6MWT Impairment Endurance Impairment Pt able to ambulate 886 ft with unilateral trekking pole in 6 minutes. Short Term Goal (STG) Pt able to ambulate 1000 ft with unilateral trekking pole in 6 minutes. Goal unmet on 03/04/23. Pt ambulated 804 ft. Pt reports increase in LBP with walking. STG Duration 03/05/23 [facility] Goal (LTG) Pt able to ambulate 1150 ft with unilateral trekking pole in 6 minutes. GOAL UNMET 04/26/23: 874 FT with uni trekking pole Goal unmet on 03/29/23: Pt ambulated 805ft. LTG Duration 04/30/23 Assessment Summary Assessment Pt presents today with increased low back pain after bending and lifting boxes yesterday. Treatment focus on LE strengthening, dynamic balance w/ trekking pole, and stretching which improves low back pain slightly. Pt's balance is challenged with decline requiring modA. Moist heat to lumbar spine end of session. Physical Therapy Plan Frequency and Duration Frequency of Treatment 2x/Week Duration of treatment (weeks) 17 Plan of Care Start Date 02/12/23 Plan of Care End Date 06/11/23 Therapeutic Interventions Therapeutic Interventions Balance Training,Coordination Training,Gait Training,Home Exercise Program,Manual Therapy,Neuromuscular Re- education,Patient/Caregiver Education,Self-Care/Home Management,Soft Tissue Mobilization,Taping, Therapeutic Activities, Therapeutic Exercises Modalities Cold Pack/Ice Massage,Hot Packs Next Visit Focus/Plan Next Note Type Treatment Note Next Visit Plan Cont to progress HEP focus on higher level balance and gait (melvin uneven surfaces, inclines, etc)
--- NOTE | 2023-05-11 16:12 | PT.OTN ---
Current Diagnoses Unsteadiness on feet (05/11/23) Other abnormalities of gait and mobility (05/11/23) Weakness (05/11/23) Physical Therapy Treatment Note PT-OP-A Visit Information Start: 02/12/23 16:06 Freq: Status: Active Protocol: Document 05/11/23 14:46 NBM (Rec: 05/11/23 15:22 NBM [id number]) Out-Patient Physical Therapy Visit Information Visit Information Visit Type Treatment Note Visit Note 08/07 after PN Visit Start Time 14:35 Visit Stop Time 15:15 Total Visit Minutes 40 Visit Number 21 Number of TRANSIT POLICE OFFICER Visits 2 PT-OP-B Current Condition Start: 02/12/23 16:06 Freq: Status: Active Protocol: Document 02/25/23 13:31 AM (Rec: 02/25/23 14:17 AM [id number]) Current Condition History of Current Condition Onset Date 2020 Current Complaints weakness, unsteadiness History of Current Condition Pt reports that she would like to improve her balance, strength and endurance. Pt with hx of bilateral TKA. Pt had a fall in Dec 2020 and fractured her L patella. She wore a knee immplizer and had surgery, though continues to have difficulty with knee. Pt reports that she locks knee in standing for stability. Pt reports that she walks with walking stick for community ambulation and no AD with household. Pt denies fall since her fall in 2020. Pt reports that she is able to ambulate 2-3 blocks before need to sit because of knee pain and fatigue. Pt reports that she recently got a recumbent bike and plans to use it daily for 20 min. Prior Treatments and Tests Prior PT for knees, back and balance issues Future Testing and Treatments Planned Pt will see her PCP next week and hoping to get low back x- rays PT-OP-C Subjective Start: 02/12/23 16:06 Freq: Status: Active Protocol: Document 05/11/23 14:46 NBM (Rec: 05/11/23 15:22 NBM [id number]) OP-PT Subjective Patient Comments Patient Comments Pt reports she slept well and makes sure to do 10-15 minutes of seated bicycling before bedtime which helps her sleep. 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 Hot pack felt wonderful end of last weekend. PT-OP-D Balance Start: 02/12/23 16:06 Freq: Status: Active Protocol: Document 03/29/23 13:33 AM (Rec: 03/29/23 14:18 AM [id number]) Camacho Balance Assessment Evaluation Sitting to Standing Ability Independent w/out Hands Unsupported Stance Safely- 2 minutes Sitting Unsupported, Feet on Floor Safely- 2 minutes Standing to Sitting Ability Safely, Minimal Hand Use Transfer Ability Safely, Minimal Hand Use Unsupported Stance- Eyes Closed Supervision, 10 seconds Unsupported Stance- Eyes Open Supervision to maintain Reaching Forward Standing Confidently, 10 inches Pick- Up Object From Floor Independent/Safe Look Behind Shoulder - Standing Shifts Weight Well Turning 360 Degrees Turns , < 4 secs Unsupported Stance, Alternating Feet on (I)- 8 Steps in > 20 secs Stair Unsupported Tandem Stance Small Step- 30 seconds Unilateral Leg Stance Lifts Leg/Unable to Hold Total Score Camacho Total Score (out of 56 points) 47 PT-OP-E Functional Tests Start: 02/12/23 16:06 Freq: Status: Active Protocol: Document 03/29/23 13:33 AM (Rec: 03/29/23 14:18 AM [id number]) Functional Tests Five Times Sit to Stand Test Score 18.7 Comments 20 in height PT-OP-G Mobility & Gait Start: 02/12/23 16:06 Freq: Status: Active Protocol: Document 02/25/23 13:31 AM (Rec: 02/25/23 14:18 AM [id number]) OP Gait Assessment Gait Gait Assistance Required: Independent Gait Deviations General Gait Pattern Antalgic Factors Limiting Gait Function Factors Limiting Gait Function Decreased Strength,Pain,Poor Balance Comments Gait Comments Pt ambulates with unilateral trekking pole. PT-OP-J Posture/Palpation/Skin Start: 02/12/23 16:06 Freq: Status: Active Protocol: Document 02/12/23 16:07 AM (Rec: 02/12/23 17:26 AM [id number]) Posture Evaluation Position Standing L-Spine Posture Flexed Pelvis Posture Anteriorly Tilted PT-OP-M Strength Start: 02/12/23 16:06 Freq: Status: Active Protocol: Document 02/12/23 16:07 AM (Rec: 02/12/23 17:26 AM [id number]) Hip Strength Hip Manual Muscle Testing Left Flexion (L2) 4- Good- Abduction 4- Good- Adduction 4- Good- Right Flexion (L2) 4- Good- Abduction 4- Good- Adduction 4- Good- Knee Strength Knee Manual Muscle Testing Left Flexion (S2) 4- Good- Extension (L3) 3+ Fair+ Right Flexion (S2) 4- Good- Extension (L3) 4- Good- Ankle/Foot Strength Ankle and Foot Manual Muscle Testing Left Dorsiflexion (L4) 4- Good- Plantarflexion (S1) 4- Good- Right Dorsiflexion (L4) 4- Good- Plantarflexion (S1) 4- Good- PT-OP-Q Treatments Start: 02/12/23 16:06 Freq: Status: Active Protocol: Document 05/11/23 14:46 NBM (Rec: 05/11/23 15:22 NB [id number]) Cardio Equipment Recumbent Bicycle Duration (Minutes) 10 Resistance 8 Seat Position 9 Therapeutic Exercises Standing Exercises marching Standing Exercise Name banded around feet 1.standing 2. fwd march Side bilateral Resistance Lvl 1 Tb Equipment Used handrail Reps/Minutes 1. x10 ea 2. 2x10 ft Comments cues for upright posture, neutral foot positioning Resisted side step Standing Exercise Name 1. Resisted side step 2. fwd/ bwd ambulation Side bilateral Resistance Lvl 1 Tb Equipment Used handrail Reps/Minutes 3x10ft ea Comments cues for upright posture, neutral foot positioning, feet apart Gait Training Gait Activity Trekking poles Device Used unilateral trekking pole RUE Level of Assistance SBA, CGA Surface carpet, tile Distance/Duration 8 min Treatment Focus endurance and gait pattern, sequencing Comments cues for posture and decreased dian, closer proximation with trekking pole Neuro Re-Education Treatment Balance Activities Incline/Decline Details CGA-min A Surface unstable Equipment mat ramp 2 flat middle, 2 & 3 ramp, 1 trekking pole RUE Reps/Duration 4 reps x 8ft ea direction Comments Ambulation on uneven ramp. CGA for incline, Lucila for 3 incline/decline until cued for sequencing RUE trekking pole w/ LLE, then CGA x 2 laps PT-OP-R Modalities Start: 02/12/23 16:06 Freq: Status: Active Protocol: Document 05/11/23 13:46 NBM (Rec: 06/01/23 15:57 [facility] [place] [id number][place] Hot Pack/Cold Pack Treatment Hot Pack Location lumbar Patient Position Hooklying Treatment Duration (minutes) 15 Patient Tolerance Good PT-OP-T Assessment and Plan Start: 02/12/23 16:06 Freq: Status: Active Protocol: Document 05/11/23 14:46 NB (Rec: 05/11/23 15:22 [id number]) Physical Therapy Assessment Goals Tandem stance Impairment Balance Impairment Pt able to hold tandem stance for 10 seconds, requiring use of hands to achieve position. Short Term Goal (STG) Pt able to hold tandem stance bilaterally for 16 seconds. 03/04/23: Goal progressing. Pt able to hold for 15 seconds bilaterally. STG Duration 03/04/23 [facility] Goal (LTG) Pt able to hold tandem stance for 25 seconds bilaterally. GOAL UNMET 04/26/23: unable to hold 10 sec without LOB 03/26/23: Pt able to hold 15 seconds bilaterally LTG Duration 04/30/23 HEP Impairment Pt with limited HEP Slide Forming Machine Tender Goal (LTG) Pt is independent with HEP LTG Duration 04/30/23 Balance Impairment Camacho balance Impairment Camacho balance score of 38/56 Short Term Goal (STG) Pt with improved balance with improved Camacho balance score of 43/56. 03/08/23: Camacho balance score of 43/56 STG Duration 03/04/23 (Goal met 03/08/23: 43/ 56) [facility] Goal (LTG) Pt with improved balance with improved Camacho balance score of 48/56 03/26/23: 47/56 Camacho Balance score GOAL NOT MET 04/26/23: 47/56 ( unchanged) LTG Duration 04/30/23 Strength Impairment Strength Impairment Pt able to complete 5 STS squats in 34.7 seconds with minimal use of unilateral UE at chair that is 20 inches in height. Short Term Goal (STG) Pt able to complete 5 STS squats in 25 seconds without use of UE at chair that is 20 inches in height. Goal Met: 03/04/23 Pt able to complete in 25 seconds. STG Duration 03/05/23 [facility] Goal (LTG) Pt able to complete 5 STS squats in 18 seconds without use of UE at chair that is 20 inches in height. UNMET 04/26/23: 22 sec 5x STS squats(regression) 03/29/23: Pt able to do 5 STS squats in 19 seconds without UE support. LTG Duration 04/30/23 6MWT Impairment Endurance Impairment Pt able to ambulate 886 ft with unilateral trekking pole in 6 minutes. Short Term Goal (STG) Pt able to ambulate 1000 ft with unilateral trekking pole in 6 minutes. Goal unmet on 03/04/23. Pt ambulated 804 ft. Pt reports increase in LBP with walking. STG Duration 03/05/23 Slide Forming Machine Tender Goal (LTG) Pt able to ambulate 1150 ft with unilateral trekking pole in 6 minutes. GOAL UNMET 04/26/23: 874 FT with uni trekking pole Goal unmet on 03/29/23: Pt ambulated 805ft. LTG Duration 04/30/23 Assessment Summary Assessment Treatment focus on LE strengthening and balance and gait w/ unilateral trekking pole in right upper extremity. Pt's dynamic balance with incline/decline on uneven surface improves from Lucila to CGA with cueing for sequencing R trekking pole w/ LLE. Physical Therapy Plan Frequency and Duration Frequency of Treatment 2x/Week Duration of treatment (weeks) 17 Plan of Care Start Date 02/12/23 Plan of Care End Date 06/11/23 Therapeutic Interventions Therapeutic Interventions Balance Training,Coordination Training,Gait Training,Home Exercise Program,Manual Therapy,Neuromuscular Re- education,Patient/Caregiver Education,Self-Care/Home Management,Soft Tissue Mobilization,Taping, Therapeutic Activities, Therapeutic Exercises Modalities Cold Pack/Ice Massage,Hot Packs Next Visit Focus/Plan Next Note Type Treatment Note Next Visit Plan Cont to progress HEP focus on higher level balance and gait (melvin uneven surfaces, inclines, etc)
--- NOTE | 2023-05-14 12:31 | PT.OTN ---
Current Diagnoses Unsteadiness on feet (05/14/23) Other abnormalities of gait and mobility (05/14/23) Weakness (05/14/23) Physical Therapy Treatment Note PT-OP-A Visit Information Start: 02/12/23 16:06 Freq: Status: Active Protocol: Document 05/14/23 09:54 NM (Rec: 05/14/23 10:30 NM [id number]) Out-Patient Physical Therapy Visit Information Visit Information Visit Type Treatment Note Visit Note 09/07 after PN Visit Start Time 09:50 Visit Stop Time 10:30 Total Visit Minutes 40 Visit Number 22 PT-OP-B Current Condition Start: 02/12/23 16:06 Freq: Status: Active Protocol: Document 02/25/23 13:31 AM (Rec: 02/25/23 14:17 AM [id number]) Current Condition History of Current Condition Onset Date 2020 Current Complaints weakness, unsteadiness History of Current Condition Pt reports that she would like to improve her balance, strength and endurance. Pt with hx of bilateral TKA. Pt had a fall in Dec 2020 and fractured her L patella. She wore a knee immplizer and had surgery, though continues to have difficulty with knee. Pt reports that she locks knee in standing for stability. Pt reports that she walks with walking stick for community ambulation and no AD with household. Pt denies fall since her fall in 2020. Pt reports that she is able to ambulate 2-3 blocks before need to sit because of knee pain and fatigue. Pt reports that she recently got a recumbent bike and plans to use it daily for 20 min. Prior Treatments and Tests Prior PT for knees, back and balance issues Future Testing and Treatments Planned Pt will see her PCP next week and hoping to get low back x- rays PT-OP-C Subjective Start: 02/12/23 16:06 Freq: Status: Active Protocol: Document 05/14/23 09:54 NM (Rec: 05/14/23 10:30 NM [id number]) OP-PT Subjective Patient Comments Patient Comments Pt reports that she is tired today with 2/10 back pain. She states that she has been diligent with her exercises this week. PT-OP-D Balance Start: 02/12/23 16:06 Freq: Status: Active Protocol: Document 03/29/23 13:33 AM (Rec: 03/29/23 14:18 AM [id number]) Camacho Balance Assessment Evaluation Sitting to Standing Ability Independent w/out Hands Unsupported Stance Safely- 2 minutes Sitting Unsupported, Feet on Floor Safely- 2 minutes Standing to Sitting Ability Safely, Minimal Hand Use Transfer Ability Safely, Minimal Hand Use Unsupported Stance- Eyes Closed Supervision, 10 seconds Unsupported Stance- Eyes Open Supervision to maintain Reaching Forward Standing Confidently, 10 inches Pick- Up Object From Floor Independent/Safe Look Behind Shoulder - Standing Shifts Weight Well Turning 360 Degrees Turns , < 4 secs Unsupported Stance, Alternating Feet on (I)- 8 Steps in > 20 secs Stair Unsupported Tandem Stance Small Step- 30 seconds Unilateral Leg Stance Lifts Leg/Unable to Hold Total Score Camacho Total Score (out of 56 points) 47 PT-OP-E Functional Tests Start: 02/12/23 16:06 Freq: Status: Active Protocol: Document 03/29/23 13:33 AM (Rec: 03/29/23 14:18 AM [id number]) Functional Tests Five Times Sit to Stand Test Score 18.7 Comments 20 in height PT-OP-G Mobility & Gait Start: 02/12/23 16:06 Freq: Status: Active Protocol: Document 02/25/23 13:31 AM (Rec: 02/25/23 14:18 AM [id number]) OP Gait Assessment Gait Gait Assistance Required: Independent Gait Deviations General Gait Pattern Antalgic Factors Limiting Gait Function Factors Limiting Gait Function Decreased Strength,Pain,Poor Balance Comments Gait Comments Pt ambulates with unilateral trekking pole. PT-OP-J Posture/Palpation/Skin Start: 02/12/23 16:06 Freq: Status: Active Protocol: Document 02/12/23 16:07 AM (Rec: 02/12/23 17:26 AM [id number]) Posture Evaluation Position Standing L-Spine Posture Flexed Pelvis Posture Anteriorly Tilted PT-OP-M Strength Start: 02/12/23 16:06 Freq: Status: Active Protocol: Document 02/12/23 16:07 AM (Rec: 02/12/23 17:26 AM [id number]) Hip Strength Hip Manual Muscle Testing Left Flexion (L2) 4- Good- Abduction 4- Good- Adduction 4- Good- Right Flexion (L2) 4- Good- Abduction 4- Good- Adduction 4- Good- Knee Strength Knee Manual Muscle Testing Left Flexion (S2) 4- Good- Extension (L3) 3+ Fair+ Right Flexion (S2) 4- Good- Extension (L3) 4- Good- Ankle/Foot Strength Ankle and Foot Manual Muscle Testing Left Dorsiflexion (L4) 4- Good- Plantarflexion (S1) 4- Good- Right Dorsiflexion (L4) 4- Good- Plantarflexion (S1) 4- Good- PT-OP-Q Treatments Start: 02/12/23 16:06 Freq: Status: Active Protocol: Document 05/14/23 09:54 NM (Rec: 05/14/23 10:30 NM [id number]) Therapeutic Exercises Standing Exercises marching Standing Exercise Name banded around feet 1.standing 2. fwd march Side bilateral Resistance Lvl 2 Tb (teal) Equipment Used handrail Reps/Minutes 2x10 Comments cues for upright posture, neutral foot positioning Resisted side step Standing Exercise Name 1. Resisted side step 2. fwd/ bwd ambulation Side bilateral Resistance lvl 2 teal tb Equipment Used no UE use Reps/Minutes 2x25 ft Comments cues for upright posture, no hip/foot rotation Neuro Re-Education Treatment Balance Activities Clock taps Surface stable Equipment SBA with occasional CGA for balance Reps/Duration 3 reps ea direction Comments Pt in static stance with narrow MICAH, then stepping in clock number directions (fwd, lateral, bwd) while maintaining static stance with opposite LE. Then switch legs Cues to reach back with hip ext instead of hip ER as pt tries to just rotate foot rather than reach bwd, changing MICAH. Start,Slow,Stop Details for reaction time Surface steady Equipment trek pole for balance during gait Reps/Duration 1000 ft Comments PT calling out fast walk, slow walk, stop intermittently while pt ambulating for pt to focus on reacting quickly to changes. Pt SBA with trekking pole. Demos good stepping and ankle strategy depending on stance position during gait cycle. Able to start/stop quickly without LOB Tandem Equipment ballerina bar for prn UE steadying Reps/Duration 2x30 Comments CGA for steadying, pt using UE support during transitioning feet. Pt demos improved static balance, but requires CGA still due to sway. Experiences 2-3 instances of LOB, but able to correct with occasional UE use Semi tandem Comments 1. Walk (with narrow base) to challenge MICAH; mod sway, slight LOB; able to catch self . 4x20 ft. SBA, no trekking pole used 2. Semi-tandem static stance, 2x30. SBA 3. Semi-Tandem rocking, 1x10 reps ea LE. For dynamic balance, promote ankle strategy. Pt attempting to use suspensory strategy to balance with knees bent. CGA to steady 4. semi-tandem with ball pass pack and forth (trunk rot), 1x60. SBA with occasional CGA to steady. Pt able to self- correct any LOB usually PT-OP-R Modalities Start: 02/12/23 16:06 Freq: Status: Active Protocol: Document 05/04/23 09:59 NBM (Rec: 05/04/23 10:36 NBM [id number]) Hot Pack/Cold Pack Treatment Hot Pack Location lumbar Patient Position Hooklying Treatment Duration (minutes) 15 Patient Tolerance Good PT-OP-T Assessment and Plan Start: 02/12/23 16:06 Freq: Status: Active Protocol: Document 05/14/23 09:54 NM (Rec: 05/14/23 10:30 NM [id number]) Physical Therapy Assessment Goals Tandem stance Impairment Balance Impairment Pt able to hold tandem stance for 10 seconds, requiring use of hands to achieve position. Short Term Goal (STG) Pt able to hold tandem stance bilaterally for 16 seconds. 03/04/23: Goal progressing. Pt able to hold for 15 seconds bilaterally. STG Duration 03/04/23 Mcfp Goal (LTG) Pt able to hold tandem stance for 25 seconds bilaterally. GOAL UNMET 04/26/23: unable to hold 10 sec without LOB 03/26/23: Pt able to hold 15 seconds bilaterally LTG Duration 04/30/23 HEP Impairment Pt with limited HEP Mcfp Goal (LTG) Pt is independent with HEP LTG Duration 04/30/23 Balance Impairment Camacho balance Impairment Camacho balance score of 38/56 Short Term Goal (STG) Pt with improved balance with improved Camacho balance score of 43/56. 03/08/23: Camacho balance score of 43/56 STG Duration 03/04/23 (Goal met 03/08/23: 43/ 56) Mcfp Goal (LTG) Pt with improved balance with improved Camacho balance score of 48/56 03/26/23: 47/56 Camacho Balance score GOAL NOT MET 04/26/23: 47/56 ( unchanged) LTG Duration 04/30/23 Strength Impairment Strength Impairment Pt able to complete 5 STS squats in 34.7 seconds with minimal use of unilateral UE at chair that is 20 inches in height. Short Term Goal (STG) Pt able to complete 5 STS squats in 25 seconds without use of UE at chair that is 20 inches in height. Goal Met: 03/04/23 Pt able to complete in 25 seconds. STG Duration 03/05/23 Mcfp Goal (LTG) Pt able to complete 5 STS squats in 18 seconds without use of UE at chair that is 20 inches in height. UNMET 04/26/23: 22 sec 5x STS squats(regression) 03/29/23: Pt able to do 5 STS squats in 19 seconds without UE support. LTG Duration 04/30/23 6MWT Impairment Endurance Impairment Pt able to ambulate 886 ft with unilateral trekking pole in 6 minutes. Short Term Goal (STG) Pt able to ambulate 1000 ft with unilateral trekking pole in 6 minutes. Goal unmet on 03/04/23. Pt ambulated 804 ft. Pt reports increase in LBP with walking. STG Duration 03/05/23 General Maintenance Helper Goal (LTG) Pt able to ambulate 1150 ft with unilateral trekking pole in 6 minutes. GOAL UNMET 04/26/23: 874 FT with uni trekking pole Goal unmet on 03/29/23: Pt ambulated 805ft. LTG Duration 04/30/23 Assessment Summary Assessment Pt demos improved balance during semi-tandem and tandem stance. Progressed to static and dynamic semi-tandem stance in order to target reaction time, changing MICAH, different balance strategies; SBA for most activities without UE use (an improvement in assistance level). Pt requires cues to perform hip ext with various LE reaching and stepping activities, as she tends to compensate with hip ER instead . Pt tends to demo a suspensory or stepping strategy to remain upright when she has LOB. Will address hip and ankle strategy in future sessions to ensure maximal pt safety. Pt would benefit from skilled PT to address impairments in balance , gait, BLE strength, safety in order to decrease fall risk and maintain independence with ADLs. Physical Therapy Plan Frequency and Duration Frequency of Treatment 2x/Week Duration of treatment (weeks) 17 Plan of Care Start Date 02/12/23 Plan of Care End Date 06/11/23 Therapeutic Interventions Therapeutic Interventions Balance Training,Coordination Training,Gait Training,Home Exercise Program,Manual Therapy,Neuromuscular Re- education,Patient/Caregiver Education,Self-Care/Home Management,Soft Tissue Mobilization,Taping, Therapeutic Activities, Therapeutic Exercises Modalities Cold Pack/Ice Massage,Hot Packs Next Visit Focus/Plan Next Note Type Treatment Note Next Visit Plan Add to HEP focus on higher level balance and gait (melvin uneven surfaces, inclines, etc). Possible PN next visit depending on pt ability to schedule appt before POC ends
--- NOTE | 2023-05-17 11:39 | PT.OTN ---
Current Diagnoses Unsteadiness on feet (05/17/23) Other abnormalities of gait and mobility (05/17/23) Weakness (05/17/23) Physical Therapy Treatment Note PT-OP-A Visit Information Start: 02/12/23 16:06 Freq: Status: Active Protocol: Document 05/17/23 09:48 NM (Rec: 05/17/23 10:33 NM [id number]) Out-Patient Physical Therapy Visit Information Visit Information Visit Type Treatment Note Visit Note 10/07 after PN Visit Start Time 09:45 Visit Stop Time 10:30 Total Visit Minutes 45 Visit Number 23 Evaluation Information Evaluation Date 02/12/23 Precautions Precautions LBP, prior fusion PT-OP-B Current Condition Start: 02/12/23 16:06 Freq: Status: Active Protocol: Document 02/25/23 13:31 AM (Rec: 02/25/23 14:17 AM [id number]) Current Condition History of Current Condition Onset Date 2020 Current Complaints weakness, unsteadiness History of Current Condition Pt reports that she would like to improve her balance, strength and endurance. Pt with hx of bilateral TKA. Pt had a fall in Dec 2020 and fractured her L patella. She wore a knee immplizer and had surgery, though continues to have difficulty with knee. Pt reports that she locks knee in standing for stability. Pt reports that she walks with walking stick for community ambulation and no AD with household. Pt denies fall since her fall in 2020. Pt reports that she is able to ambulate 2-3 blocks before need to sit because of knee pain and fatigue. Pt reports that she recently got a recumbent bike and plans to use it daily for 20 min. Prior Treatments and Tests Prior PT for knees, back and balance issues Future Testing and Treatments Planned Pt will see her PCP next week and hoping to get low back x- rays PT-OP-C Subjective Start: 02/12/23 16:06 Freq: Status: Active Protocol: Document 05/17/23 09:48 NM (Rec: 05/17/23 10:33 NM [id number]) OP-PT Subjective Patient Comments Patient Comments Pt reports that she is fatigued today and she has her normal back pain. PT-OP-D Balance Start: 02/12/23 16:06 Freq: Status: Active Protocol: Document 03/29/23 13:33 AM (Rec: 03/29/23 14:18 AM [id number]) Camacho Balance Assessment Evaluation Sitting to Standing Ability Independent w/out Hands Unsupported Stance Safely- 2 minutes Sitting Unsupported, Feet on Floor Safely- 2 minutes Standing to Sitting Ability Safely, Minimal Hand Use Transfer Ability Safely, Minimal Hand Use Unsupported Stance- Eyes Closed Supervision, 10 seconds Unsupported Stance- Eyes Open Supervision to maintain Reaching Forward Standing Confidently, 10 inches Pick- Up Object From Floor Independent/Safe Look Behind Shoulder - Standing Shifts Weight Well Turning 360 Degrees Turns , < 4 secs Unsupported Stance, Alternating Feet on (I)- 8 Steps in > 20 secs Stair Unsupported Tandem Stance Small Step- 30 seconds Unilateral Leg Stance Lifts Leg/Unable to Hold Total Score Camacho Total Score (out of 56 points) 47 PT-OP-E Functional Tests Start: 02/12/23 16:06 Freq: Status: Active Protocol: Document 03/29/23 13:33 AM (Rec: 03/29/23 14:18 AM [id number]) Functional Tests Five Times Sit to Stand Test Score 18.7 Comments 20 in height PT-OP-G Mobility & Gait Start: 02/12/23 16:06 Freq: Status: Active Protocol: Document 02/25/23 13:31 AM (Rec: 02/25/23 14:18 AM [id number]) OP Gait Assessment Gait Gait Assistance Required: Independent Gait Deviations General Gait Pattern Antalgic Factors Limiting Gait Function Factors Limiting Gait Function Decreased Strength,Pain,Poor Balance Comments Gait Comments Pt ambulates with unilateral trekking pole. PT-OP-J Posture/Palpation/Skin Start: 02/12/23 16:06 Freq: Status: Active Protocol: Document 02/12/23 16:07 AM (Rec: 02/12/23 17:26 AM [id number]) Posture Evaluation Position Standing L-Spine Posture Flexed Pelvis Posture Anteriorly Tilted PT-OP-M Strength Start: 02/12/23 16:06 Freq: Status: Active Protocol: Document 02/12/23 16:07 AM (Rec: 02/12/23 17:26 AM [id number]) Hip Strength Hip Manual Muscle Testing Left Flexion (L2) 4- Good- Abduction 4- Good- Adduction 4- Good- Right Flexion (L2) 4- Good- Abduction 4- Good- Adduction 4- Good- Knee Strength Knee Manual Muscle Testing Left Flexion (S2) 4- Good- Extension (L3) 3+ Fair+ Right Flexion (S2) 4- Good- Extension (L3) 4- Good- Ankle/Foot Strength Ankle and Foot Manual Muscle Testing Left Dorsiflexion (L4) 4- Good- Plantarflexion (S1) 4- Good- Right Dorsiflexion (L4) 4- Good- Plantarflexion (S1) 4- Good- PT-OP-Q Treatments Start: 02/12/23 16:06 Freq: Status: Active Protocol: Document 05/17/23 09:48 NM (Rec: 05/17/23 10:33 NM [id number]) Therapeutic Exercises Standing Exercises marching Standing Exercise Name banded around feet performing fwd march Side bilateral Resistance lvl 2 teal band Equipment Used 2 fingers hand rail Reps/Minutes 2x15 Comments cues for upright posture, neutral foot position, no L knee hyperext Pallof press Standing Exercise Name 1. pallof, 2. pallof circles Side bilateral Resistance orange tb Reps/Minutes 1x30 ea Comments cues for upright posture; no twisting 3-way hip Standing Exercise Name Hip ext and hip abd Side bilateral Resistance lvl 1 blue tb around ankles Equipment Used 2 finger UE support, ballerina bar Reps/Minutes 2x10 ea Comments cues for upright posture Neuro Re-Education Treatment Balance Activities Towel rocks Surface unstable Equipment rolled towel Reps/Duration 2x30 Comments For ankle strategy Pt standing with rolled towel underneath the arch of her feet, rocking fwd and bwd over the towel with only ankles moving to simulate ankle strategy Airex Pad Equipment blue foam pad Reps/Duration 2x30 ea Comments 1. fwd/bwd step up, no UE supports; CGA to steadying. Cues to step up completely onto step 2. lateral step ups, 2 finger UE support, CGA; demos mod sway, but able to maintain balance with 2 finger UE use to step up 3. static stance; SBA, no sway 4. stance with head turns laterally; CGA to steady. Mild sway, able to correct with ankle strategy 5. marching, CGA; cues to remain on foam, better upright posture; min LOB but able to catch self with hands; no UE support except if LOB Banded Square Steps Details stepping in a square Surface stable Equipment lvl 1 blue band around ankles Reps/Duration 10 reps ea direction w/o trek pole, 1x2 with trek pole Comments performed CCW and CW. Cues for upright posture, bigger steps . Pt attempts to lean fwd and use hip strategy to counterbalance. Pt able to perform with mild instability without trek pole (CGA) and no trunk sway with trekking pole (SBA). Additional strengthening of hip abd/ext/ flex PT-OP-R Modalities Start: 02/12/23 16:06 Freq: Status: Active Protocol: Document 05/04/23 09:59 NBM (Rec: 05/04/23 10:36 NBM [id number]) Hot Pack/Cold Pack Treatment Hot Pack Location lumbar Patient Position Hooklying Treatment Duration (minutes) 15 Patient Tolerance Good PT-OP-T Assessment and Plan Start: 02/12/23 16:06 Freq: Status: Active Protocol: Document 05/17/23 09:48 NM (Rec: 05/17/23 10:33 NM [id number]) Physical Therapy Assessment Goals Tandem stance Impairment Balance Impairment Pt able to hold tandem stance for 10 seconds, requiring use of hands to achieve position. Short Term Goal (STG) Pt able to hold tandem stance bilaterally for 16 seconds. 03/04/23: Goal progressing. Pt able to hold for 15 seconds bilaterally. STG Duration 03/04/23 Food Checker Goal (LTG) Pt able to hold tandem stance for 25 seconds bilaterally. GOAL UNMET 04/26/23: unable to hold 10 sec without LOB 03/26/23: Pt able to hold 15 seconds bilaterally LTG Duration 04/30/23 HEP Impairment Pt with limited HEP Food Checker Goal (LTG) Pt is independent with HEP LTG Duration 04/30/23 Balance Impairment Camacho balance Impairment Camacho balance score of 38/56 Short Term Goal (STG) Pt with improved balance with improved Camacho balance score of 43/56. 03/08/23: Camacho balance score of 43/56 STG Duration 03/04/23 (Goal met 03/08/23: 43/ 56) [facility] Goal (LTG) Pt with improved balance with improved Camacho balance score of 48/56 03/26/23: 47/56 Camacho Balance score GOAL NOT MET 04/26/23: 47/56 ( unchanged) LTG Duration 04/30/23 Strength Impairment Strength Impairment Pt able to complete 5 STS squats in 34.7 seconds with minimal use of unilateral UE at chair that is 20 inches in height. Short Term Goal (STG) Pt able to complete 5 STS squats in 25 seconds without use of UE at chair that is 20 inches in height. Goal Met: 03/04/23 Pt able to complete in 25 seconds. STG Duration 03/05/23 Food Checker Goal (LTG) Pt able to complete 5 STS squats in 18 seconds without use of UE at chair that is 20 inches in height. UNMET 04/26/23: 22 sec 5x STS squats(regression) 03/29/23: Pt able to do 5 STS squats in 19 seconds without UE support. LTG Duration 04/30/23 6MWT Impairment Endurance Impairment Pt able to ambulate 886 ft with unilateral trekking pole in 6 minutes. Short Term Goal (STG) Pt able to ambulate 1000 ft with unilateral trekking pole in 6 minutes. Goal unmet on 03/04/23. Pt ambulated 804 ft. Pt reports increase in LBP with walking. STG Duration 03/05/23 [facility]ci Goal (LTG) Pt able to ambulate 1150 ft with unilateral trekking pole in 6 minutes. GOAL UNMET 04/26/23: 874 FT with uni trekking pole Goal unmet on 03/29/23: Pt ambulated 805ft. LTG Duration 04/30/23 Assessment Summary Assessment Pt demos improved trunk and hip stability during activities on stable surface and foam. She is still CGA for most activities on foam due to sway and instances of LOB; however pt is able to correct and stabilize while on foam with exception of lateral step ups onto foam. She requires cues for upright posture ( tends to flex and use hips for stability), larger steps if stepping activity (takes small steps to maintain close MICAH). Pt is able to stabilize her core fairly and maintain balance well with outside perturbations during pallof press with changing resistance . Pt requires cues for correct execution, core activation to prevent trunk rotation. Will continue address balance on unsteady surfaces, changing MICAH, and promoting different balance strategies. Pt would benefit from skilled PT to address impairments in gait, balance, and BLE strength in order to decrease fall risk, improve ADL tolerance and ability to participate in community events. Physical Therapy Plan Frequency and Duration Frequency of Treatment 2x/Week Duration of treatment (weeks) 17 Plan of Care Start Date 02/12/23 Plan of Care End Date 06/11/23 Therapeutic Interventions Therapeutic Interventions Balance Training,Coordination Training,Gait Training,Home Exercise Program,Manual Therapy,Neuromuscular Re- education,Patient/Caregiver Education,Self-Care/Home Management,Soft Tissue Mobilization,Taping, Therapeutic Activities, Therapeutic Exercises Modalities Cold Pack/Ice Massage,Hot Packs Next Visit Focus/Plan Next Note Type Treatment Note Next Visit Plan Update HEP focus on higher level balance and gait (melvin uneven surfaces, inclines, etc) with and without trek pole. Cont with core and hip strengthening PN in 2 visits (06/03/23)
--- NOTE | 2023-06-01 16:01 | PT.OTN ---
Current Diagnoses Unsteadiness on feet (06/01/23) Other abnormalities of gait and mobility (06/01/23) Weakness (06/01/23) Physical Therapy Treatment Note PT-OP-A Visit Information Start: 02/12/23 16:06 Freq: Status: Active Protocol: Document 06/01/23 13:46 NBM (Rec: 06/01/23 15:57 NBM [id number]) Out-Patient Physical Therapy Visit Information Visit Information Visit Type Treatment Note Visit Note 11/07 after PN Visit Start Time 13:46 Visit Stop Time 14:30 Total Visit Minutes 44 Visit Number 24 Number of MECHANIC GENERAL OPERATIONAL TEST Visits 1 PT-OP-B Current Condition Start: 02/12/23 16:06 Freq: Status: Active Protocol: Document 02/25/23 13:31 AM (Rec: 02/25/23 14:17 AM [id number]) Current Condition History of Current Condition Onset Date 2020 Current Complaints weakness, unsteadiness History of Current Condition Pt reports that she would like to improve her balance, strength and endurance. Pt with hx of bilateral TKA. Pt had a fall in Dec 2020 and fractured her L patella. She wore a knee immplizer and had surgery, though continues to have difficulty with knee. Pt reports that she locks knee in standing for stability. Pt reports that she walks with walking stick for community ambulation and no AD with household. Pt denies fall since her fall in 2020. Pt reports that she is able to ambulate 2-3 blocks before need to sit because of knee pain and fatigue. Pt reports that she recently got a recumbent bike and plans to use it daily for 20 min. Prior Treatments and Tests Prior PT for knees, back and balance issues Future Testing and Treatments Planned Pt will see her PCP next week and hoping to get low back x- rays PT-OP-C Subjective Start: 02/12/23 16:06 Freq: Status: Active Protocol: Document 06/01/23 13:46 NBM (Rec: 06/01/23 15:57 NBM [id number]) OP-PT Subjective Patient Comments Patient Comments Nevaeh reports she thinks she' s doing well but daughter thinks her balance could be better who says pt is holding on to her arm a lot. She's using the recumbent bike every night at bedtime which helps her sleep. Her back is continuing to hurt and ex's and stretches in bed help. She had to do a lot of sitting for long car rides which causes her back to hurt more. PT-OP-D Balance Start: 02/12/23 16:06 Freq: Status: Active Protocol: Document 03/29/23 13:33 AM (Rec: 03/29/23 14:18 AM [id number]) Camacho Balance Assessment Evaluation Sitting to Standing Ability Independent w/out Hands Unsupported Stance Safely- 2 minutes Sitting Unsupported, Feet on Floor Safely- 2 minutes Standing to Sitting Ability Safely, Minimal Hand Use Transfer Ability Safely, Minimal Hand Use Unsupported Stance- Eyes Closed Supervision, 10 seconds Unsupported Stance- Eyes Open Supervision to maintain Reaching Forward Standing Confidently, 10 inches Pick- Up Object From Floor Independent/Safe Look Behind Shoulder - Standing Shifts Weight Well Turning 360 Degrees Turns , < 4 secs Unsupported Stance, Alternating Feet on (I)- 8 Steps in > 20 secs Stair Unsupported Tandem Stance Small Step- 30 seconds Unilateral Leg Stance Lifts Leg/Unable to Hold Total Score Camacho Total Score (out of 56 points) 47 PT-OP-E Functional Tests Start: 02/12/23 16:06 Freq: Status: Active Protocol: Document 03/29/23 13:33 AM (Rec: 03/29/23 14:18 AM [id number]) Functional Tests Five Times Sit to Stand Test Score 18.7 Comments 20 in height PT-OP-G Mobility & Gait Start: 02/12/23 16:06 Freq: Status: Active Protocol: Document 02/25/23 13:31 AM (Rec: 02/25/23 14:18 AM [id number]) OP Gait Assessment Gait Gait Assistance Required: Independent Gait Deviations General Gait Pattern Antalgic Factors Limiting Gait Function Factors Limiting Gait Function Decreased Strength,Pain,Poor Balance Comments Gait Comments Pt ambulates with unilateral trekking pole. PT-OP-J Posture/Palpation/Skin Start: 02/12/23 16:06 Freq: Status: Active Protocol: Document 02/12/23 16:07 AM (Rec: 02/12/23 17:26 AM [id number]) Posture Evaluation Position Standing L-Spine Posture Flexed Pelvis Posture Anteriorly Tilted PT-OP-M Strength Start: 09/15/23 16:06 Freq: Status: Active Protocol: Document 02/12/23 16:07 AM (Rec: 02/12/23 17:26 AM [id number]) Hip Strength Hip Manual Muscle Testing Left Flexion (L2) 4- Good- Abduction 4- Good- Adduction 4- Good- Right Flexion (L2) 4- Good- Abduction 4- Good- Adduction 4- Good- Knee Strength Knee Manual Muscle Testing Left Flexion (S2) 4- Good- Extension (L3) 3+ Fair+ Right Flexion (S2) 4- Good- Extension (L3) 4- Good- Ankle/Foot Strength Ankle and Foot Manual Muscle Testing Left Dorsiflexion (L4) 4- Good- Plantarflexion (S1) 4- Good- Right Dorsiflexion (L4) 4- Good- Plantarflexion (S1) 4- Good- PT-OP-Q Treatments Start: 02/12/23 16:06 Freq: Status: Active Protocol: Document 06/01/23 13:46 NBM (Rec: 06/01/23 15:57 NBM [id number]) Cardio Equipment Recumbent Bicycle Duration (Minutes) 10 Resistance 8 Seat Position 9 Other verbal review only for HEP - pt to try increasing resistance Gym Equipment Shuttle Recovery Unilateral Squats Details cues for knee flex to 90deg, and to not hyperext LLE Resistance 62# (2 navy bands) Shuttle Recovery Platform Stable Reps/Time x20, x10 ea ea LE Bilateral Squats Resistance 87# (3 navy) Shuttle Recovery Platform Stable Reps/Time x20, cues for knee flexion to 90deg and to prevent LLE hyperext Therapeutic Exercises Supine Exercises DKTC Supine Exercise Name static and w/ gentle lateral rocks Side bilateral Equipment Used hi-lo table Reps/Minutes x30s ea Comments relieves lumbar stiffness and pain LTR Supine Exercise Name lower trunk rotation Side bilateral Reps/Minutes x10 ea Comments vc for PPT to avoid lumbar hyperextension Hip flexor stretch Supine Exercise Name Derek Side right Reps/Minutes 2x30 sec Bridge Supine Exercise Name Bridge Side bilateral Equipment Used Lvl 2 Parmer Tb above knees- not today Reps/Minutes x10 Comments vc for gluteal activation, no breathholding SKTC Side bilateral Reps/Minutes 2x30 sec ea Standing Exercises marching Standing Exercise Name banded around feet 1. standing . 2. fwd march Side bilateral Resistance lvl 2 teal band Equipment Used 2 fingers hand rail Reps/Minutes 2x15 Comments cues for upright posture, neutral foot position, no L knee hyperext step-up Standing Exercise Name Step up Side left Equipment Used // bars, 6 in step, 1 MEDIA RELATIONS SPECIALIST>2- finger touch Reps/Minutes 2x10 Comments LLE miles x1 w/ 2-finger touch 3-way hip Standing Exercise Name Hip ext-not today and hip abd Side bilateral Resistance lvl 2 blue tb around ankles Equipment Used 2 finger UE support, // bar Reps/Minutes x10 ea Comments cues for upright posture, eccentric control Gait Training Gait Activity stairs Description 6 training stairs Device Used gait belt Level of Assistance 1 MEDIA RELATIONS SPECIALIST > 2-finger touch Distance/Duration 4 x4 steps Treatment Focus decrease UE support, increase LE weightbearing Comments L>R LE weakness modA for LLE buckle balance recovery ascending with 2- finger touch Trekking poles Device Used unilateral trekking pole RUE Level of Assistance SBA, CGA Surface carpet, tile Distance/Duration between activities Treatment Focus endurance and gait pattern, sequencing Comments cues for posture and decreased dian, closer proximation with trekking pole Neuro Re-Education Treatment Balance Activities hurdles Details 1HHA> 2-finger touch Equipment 6 6 hurdles, // bars, Gait Belt Reps/Duration 6x 10ft Towel rocks Details WBOS, Staggered stance Surface unstable Equipment rolled towel Reps/Duration 2x30 Comments For ankle strategy Pt standing with rolled towel underneath the arch of her feet, rocking fwd and bwd over the towel with only ankles moving to simulate ankle strategy Self-Care/Home Management Treatment Education Other Education -Discussion w/ pt re: heavy use of UE support w/ balance activities and that FWW may be more appropriate for safe ambulation until pt is able to increase LE strength to increase safety w/ unilateral trekking pole in RUE- pt expresses understanding and is encouraged to increase resistance level from 8>9 for nightly recumbent bicycle; can start with goal of Lvl 9 for first 2-3 min up to full 15 min as needed. -HEP stretches reviewed (DKTC, LTR, SKTC, Derek hip flexor, bridging). PT-OP-R Modalities Start: 02/12/23 16:06 Freq: Status: Active Protocol: Document 06/01/23 13:46 NBM (Rec: 06/01/23 15:57 [facility] [id number]) Hot Pack/Cold Pack Treatment Hot Pack Location lumbar Patient Position Hooklying Treatment Duration (minutes) 15 Patient Tolerance Good PT-OP-T Assessment and Plan Start: 02/12/23 16:06 Freq: Status: Active Protocol: Document 06/01/23 13:46 NB (Rec: 06/01/23 15:57 [facility] [id number]) Physical Therapy Assessment Goals Tandem stance Impairment Balance Impairment Pt able to hold tandem stance for 10 seconds, requiring use of hands to achieve position. Short Term Goal (STG) Pt able to hold tandem stance bilaterally for 16 seconds. 03/04/23: Goal progressing. Pt able to hold for 15 seconds bilaterally. STG Duration 03/04/23 Scene And Lighting Design Lecturer Goal (LTG) Pt able to hold tandem stance for 25 seconds bilaterally. GOAL UNMET 04/26/23: unable to hold 10 sec without LOB 03/26/23: Pt able to hold 15 seconds bilaterally LTG Duration 04/30/23 HEP Impairment Pt with limited HEP Long-Term Goal (LTG) Pt is independent with HEP LTG Duration 04/30/23 Balance Impairment Camacho balance Impairment Camacho balance score of 38/56 Short Term Goal (STG) Pt with improved balance with improved Camacho balance score of 43/56. 03/08/23: Camacho balance score of 43/56 STG Duration 03/04/23 (Goal met 03/08/23: 43/ 56) Scene And Lighting Design Lecturer Goal (LTG) Pt with improved balance with improved Camacho balance score of 48/56 03/26/23: 47/56 Camacho Balance score GOAL NOT MET 04/26/23: 47/56 ( unchanged) LTG Duration 04/30/23 Strength Impairment Strength Impairment Pt able to complete 5 STS squats in 34.7 seconds with minimal use of unilateral UE at chair that is 20 inches in height. Short Term Goal (STG) Pt able to complete 5 STS squats in 25 seconds without use of UE at chair that is 20 inches in height. Goal Met: 03/04/23 Pt able to complete in 25 seconds. STG Duration 03/05/23 Long-Term Goal (LTG) Pt able to complete 5 STS squats in 18 seconds without use of UE at chair that is 20 inches in height. UNMET 04/26/23: 22 sec 5x STS squats(regression) 03/29/23: Pt able to do 5 STS squats in 19 seconds without UE support. LTG Duration 04/30/23 6MWT Impairment Endurance Impairment Pt able to ambulate 886 ft with unilateral trekking pole in 6 minutes. Short Term Goal (STG) Pt able to ambulate 1000 ft with unilateral trekking pole in 6 minutes. Goal unmet on 03/04/23. Pt ambulated 804 ft. Pt reports increase in LBP with walking. STG Duration 03/05/23 Long-Term Goal (LTG) Pt able to ambulate 1150 ft with unilateral trekking pole in 6 minutes. GOAL UNMET 04/26/23: 874 FT with uni trekking pole Goal unmet on 03/29/23: Pt ambulated 805ft. LTG Duration 04/30/23 Assessment Summary Assessment Nevaeh arrives w/ unilateral trekking pole in RUE. When cued for slower pacing ambulating Nevaeh demonstrates improved upright posture and sequencing w/ unilateral trekking pole in RUE but lacks carryover when walking out end of session. Treatment focus on LE strengthening and decreasing UE support with balance activities cueing from one Handhold Assist to 2- finger touch on parallel bars or railing. Pt has L>R LE weakness with 6 step ups and training stairs with L buckling x1 on each when cued for 2-finger touch. Discussed with pt their heavy use of UE support with balance activities and that FWW may be more appropriate for safe ambulation until pt is able to increase LE strength to increase safety w/ unilateral trekking pole - pt expresses understanding and is encouraged to increase resistance level from 8>9 for nightly recumbent bicycle; can start with goal of Lvl 9 for first 2-3 min up to full 15 min as needed. She demonstrates improved LE alignment w/ cinthia and uni supine squats on Shuttle Recovery but requires cues for increasing knee flexion to 90 deg requiring modA for full extension on RLE due to fatigue with unilateral squats . HEP stretches reviewed (DKTC , LTR, SKTC, Derek hip flexor , bridging) and moist heat for lumbar stiffness end of session. Physical Therapy Plan Frequency and Duration Frequency of Treatment 2x/Week Duration of treatment (weeks) 17 Plan of Care Start Date 02/12/23 Plan of Care End Date 06/11/23 Therapeutic Interventions Therapeutic Interventions Balance Training,Coordination Training,Gait Training,Home Exercise Program,Manual Therapy,Neuromuscular Re- education,Patient/Caregiver Education,Self-Care/Home Management,Soft Tissue Mobilization,Taping, Therapeutic Activities, Therapeutic Exercises Modalities Cold Pack/Ice Massage,Hot Packs Next Visit Focus/Plan Next Note Type Treatment Note Next Visit Plan Assess response to increasing recumbent bike Lvl 8>9 and consider FWW training. Update HEP focus on higher level balance and gait (melvin uneven surfaces, inclines, etc ) with and without trek pole. Cont with core and hip strengthening PN in 1 visits (06/03/23)
--- NOTE | 2023-06-03 16:38 | PT.OTN ---
Current Diagnoses Unsteadiness on feet (06/03/23) Other abnormalities of gait and mobility (06/03/23) Weakness (06/03/23) Physical Therapy Treatment Note PT-OP-A Visit Information Start: 02/12/23 16:06 Freq: Status: Active Protocol: Document 06/03/23 13:02 NM (Rec: 06/03/23 13:48 NM [id number]) Out-Patient Physical Therapy Visit Information Visit Information Visit Type Progress Note Visit Start Time 13:03 Visit Stop Time 13:45 Total Visit Minutes 42 Visit Number 25 Evaluation Information Evaluation Date 02/12/23 Precautions Precautions LBP, prior fusion PT-OP-B Current Condition Start: 02/12/23 16:06 Freq: Status: Active Protocol: Document 02/25/23 13:31 AM (Rec: 02/25/23 14:17 AM [id number]) Current Condition History of Current Condition Onset Date 2020 Current Complaints weakness, unsteadiness History of Current Condition Pt reports that she would like to improve her balance, strength and endurance. Pt with hx of bilateral TKA. Pt had a fall in Dec 2020 and fractured her L patella. She wore a knee immplizer and had surgery, though continues to have difficulty with knee. Pt reports that she locks knee in standing for stability. Pt reports that she walks with walking stick for community ambulation and no AD with household. Pt denies fall since her fall in 2020. Pt reports that she is able to ambulate 2-3 blocks before need to sit because of knee pain and fatigue. Pt reports that she recently got a recumbent bike and plans to use it daily for 20 min. Prior Treatments and Tests Prior PT for knees, back and balance issues Future Testing and Treatments Planned Pt will see her PCP next week and hoping to get low back x- rays PT-OP-C Subjective Start: 02/12/23 16:06 Freq: Status: Active Protocol: Document 06/03/23 13:02 NM (Rec: 06/03/23 13:48 NM [id number]) OP-PT Subjective Patient Comments Patient Comments Pt reports that she is fatigued today. She worked at the [employer], so she is ready for a nap and lunch. Her back hurts slightly. She thinks that she has improved in her balance and strength since her last PN in April. PT-OP-D Balance Start: 02/12/23 16:06 Freq: Status: Active Protocol: Document 03/29/23 13:33 AM (Rec: 03/29/23 14:18 AM [id number]) Camacho Balance Assessment Evaluation Sitting to Standing Ability Independent w/out Hands Unsupported Stance Safely- 2 minutes Sitting Unsupported, Feet on Floor Safely- 2 minutes Standing to Sitting Ability Safely, Minimal Hand Use Transfer Ability Safely, Minimal Hand Use Unsupported Stance- Eyes Closed Supervision, 10 seconds Unsupported Stance- Eyes Open Supervision to maintain Reaching Forward Standing Confidently, 10 inches Pick- Up Object From Floor Independent/Safe Look Behind Shoulder - Standing Shifts Weight Well Turning 360 Degrees Turns , < 4 secs Unsupported Stance, Alternating Feet on (I)- 8 Steps in > 20 secs Stair Unsupported Tandem Stance Small Step- 30 seconds Unilateral Leg Stance Lifts Leg/Unable to Hold Total Score Camacho Total Score (out of 56 points) 47 PT-OP-E Functional Tests Start: 02/12/23 16:06 Freq: Status: Active Protocol: Document 03/29/23 13:33 AM (Rec: 03/29/23 14:18 AM [id number]) Functional Tests Five Times Sit to Stand Test Score 18.7 Comments 20 in height PT-OP-G Mobility & Gait Start: 02/12/23 16:06 Freq: Status: Active Protocol: Document 02/25/23 13:31 AM (Rec: 02/25/23 14:18 AM [id number]) OP Gait Assessment Gait Gait Assistance Required: Independent Gait Deviations General Gait Pattern Antalgic Factors Limiting Gait Function Factors Limiting Gait Function Decreased Strength,Pain,Poor Balance Comments Gait Comments Pt ambulates with unilateral trekking pole. PT-OP-J Posture/Palpation/Skin Start: 02/12/23 16:06 Freq: Status: Active Protocol: Document 02/12/23 16:07 AM (Rec: 02/12/23 17:26 AM [id number]) Posture Evaluation Position Standing L-Spine Posture Flexed Pelvis Posture Anteriorly Tilted PT-OP-M Strength Start: 02/12/23 16:06 Freq: Status: Active Protocol: Document 02/12/23 16:07 AM (Rec: 02/12/23 17:26 AM [id number]) Hip Strength Hip Manual Muscle Testing Left Flexion (L2) 4- Good- Abduction 4- Good- Adduction 4- Good- Right Flexion (L2) 4- Good- Abduction 4- Good- Adduction 4- Good- Knee Strength Knee Manual Muscle Testing Left Flexion (S2) 4- Good- Extension (L3) 3+ Fair+ Right Flexion (S2) 4- Good- Extension (L3) 4- Good- Ankle/Foot Strength Ankle and Foot Manual Muscle Testing Left Dorsiflexion (L4) 4- Good- Plantarflexion (S1) 4- Good- Right Dorsiflexion (L4) 4- Good- Plantarflexion (S1) 4- Good- PT-OP-Q Treatments Start: 02/12/23 16:06 Freq: Status: Active Protocol: Document 06/03/23 13:02 NM (Rec: 06/03/23 13:48 NM [id number]) Therapeutic Exercises Standing Exercises marching Standing Exercise Name fwd standing march Side bilateral Resistance lvl 2 teal tb Equipment Used 2 fingers hand rail Reps/Minutes 1x10 for HEP review Comments cues for upright posture, neutral foot position, no L knee hyperext Resisted side step Standing Exercise Name lateral side step for HEP review Side bilateral Resistance teal tb around ankles Equipment Used 2 finger support Reps/Minutes 1x10 ft ea direction Comments cues for neutral hip/foot rotation, no knee hyperext 3-way hip Standing Exercise Name hip ext (no abd due to side steps)- HEP review Side bilateral Resistance lvl 2 teal tb around ankles Equipment Used 2 fingers support //bar Reps/Minutes 1x10 ea Comments cue for slight fwd lean to decrease LBP, eccentric control Gait Training Gait Activity 4WW Device Used 4WW Level of Assistance IND Surface stable Distance/Duration 400 ft Treatment Focus nml gait, endurance, stability Comments Pt demos improved stability with 4WW despite increased fatigue after 6 MWT. Demos decreased trunk sway, increased UE support, better foot clearance and step length . Pt requires cues initially to keep 4WW closer to body rather than ambulating with arms extended. Pt also able to lean fwd slightly to offload back and decrease pain vs use of trekking pole. 6 MWT Device Used 1 trek pole Level of Assistance close SBA Surface stable Distance/Duration 974 ft Treatment Focus endurance, nml gait, safety with AD Comments Demos quick gait speed, decreases with fatigue. Pt demos increased trunk sway, decreased foot clearance and step length, and begins reaching for objects to steady as test progresses. Pt must be cued to take curves more slowly to prevent LOB. Also requires cues to keep trekking pole nearer to pt's body and to use correctly as additional 3rd point of support during gait. Neuro Re-Education Treatment Other Activities Camacho Details 48/ Comments Improved step tapping, able to maintain without UE support and close SBA. Improved ability to stand with eyes closed, forward reach. Pt continues to have difficulty with achieving position for and maintaining tandem stance. Unsafe to stand on single leg . PT-OP-R Modalities Start: 02/12/23 16:06 Freq: Status: Active Protocol: Document 06/01/23 13:46 NBM (Rec: 06/01/23 15:57 NBM [id number]) Hot Pack/Cold Pack Treatment Hot Pack Location lumbar Patient Position Hooklying Treatment Duration (minutes) 15 Patient Tolerance Good PT-OP-T Assessment and Plan Start: 02/12/23 16:06 Freq: Status: Active Protocol: Document 06/03/23 13:02 NM (Rec: 06/03/23 13:48 NM [id number]) Physical Therapy Assessment Goals Tandem stance Impairment Balance Impairment Pt able to hold tandem stance for 10 seconds, requiring use of hands to achieve position. Short Term Goal (STG) Pt able to hold tandem stance bilaterally for 16 seconds. 03/04/23: Goal progressing. Pt able to hold for 15 seconds bilaterally. STG Duration 03/04/23 Elevator Repairer Goal (LTG) Pt able to hold tandem stance for 25 seconds bilaterally. 06/03/23: Pt able to maintain tandem stance for 30 seconds with RLE and semi-tandem stance with LLE for 30 seconds . Continues to demo difficulty with achieving position. 04/26/23: unable to hold 10 sec without LOB 03/26/23: Pt able to hold 15 seconds bilaterally LTG Duration 04/30/23 PROGRESSING HEP Impairment Pt with limited HEP Mcc Goal (LTG) Pt is independent with HEP PROGRESSING 06/03/23: Pt reports min compliance with HEP LTG Duration 04/30/23 PROGRESSING Balance Impairment Camacho balance Impairment Camacho balance score of 38/56 Short Term Goal (STG) Pt with improved balance with improved Camacho balance score of 43/56. 03/08/23: Camacho balance score of 43/56 STG Duration 03/04/23 (Goal met 03/08/23: 43/ 56) Mcc Goal (LTG) Pt with improved balance with improved Camacho balance score of 48/56 06/03/23: MET, score 48/56. Pt only unable to perform standing on 1 foot and difficulty with maintaining tandem stance 03/26/23: 47/56 Camacho Balance score GOAL NOT MET 04/26/23: 47/56 ( unchanged) LTG Duration 04/30/23 MET Strength Impairment Strength Impairment Pt able to complete 5 STS squats in 34.7 seconds with minimal use of unilateral UE at chair that is 20 inches in height. Short Term Goal (STG) Pt able to complete 5 STS squats in 25 seconds without use of UE at chair that is 20 inches in height. Goal Met: 03/04/23 Pt able to complete in 25 seconds. STG Duration 03/05/23 Mcc Goal (LTG) Pt able to complete 5 STS squats in 18 seconds without use of UE at chair that is 20 inches in height. 06/03/23: 16.76 sec 5x STS squats without UE use from 20 chair 04/26/23: 22 sec 5x STS squats (regression) 03/29/23: Pt able to do 5 STS squats in 19 seconds without UE support. LTG Duration 04/30/23 MET 6MWT Impairment Endurance Impairment Pt able to ambulate 886 ft with unilateral trekking pole in 6 minutes. Short Term Goal (STG) Pt able to ambulate 1000 ft with unilateral trekking pole or LRAD in 6 minutes. Goal unmet on 06/03/23: 974 ft with uni trekking pole. Would benefit from more stable AD 03/04/23. Pt ambulated 804 ft. Pt reports increase in LBP with walking. STG Duration 03/05/23 Mcc Goal (LTG) Pt able to ambulate 1150 ft with unilateral trekking pole or LRAD in 6 minutes. GOAL UNMET 06/03/23: 974 ft with uni trekking pole. Pt would benefit from more stable AD 04/26/23: 874 FT with uni trekking pole Goal unmet on 03/29/23: Pt ambulated 805ft. LTG Duration 04/30/23 NOT MET Progress Towards Goals Progress Towards Goals Progressing Toward Goals,Slow Progress due to Activity Tolerance,Goals Met Progress Comments Met 2/5 goals, progressing toward other Assessment Summary Assessment Pt tolerated session well. She continues to use 1 trekking pole for gait, but is open to trying 4WW for increased stability. During 6MWT, pt demos increasing trunk sway and difficulty maintaining balance independently as she fatigues. Pt then attempted gait with more stable 4WW and demos improved stability, decreased sway, and fewer reports of low back pain. Pt would benefit from further gait training with 4WW or other more stable device. During Camacho test, pt demos improved stability during all motions but continues to be limited in positioning herself and maintaining independent balance with tandem stance. She does demo decreased sway and improved confidence in this position compared to previous sessions. HEP updated : standing hip flexor march, stand hip ext, side step. Pt has had 6 visits since last PN. Pt is progressing toward goals and has now met 2/5 LTG. She demos improvement in overall BLE strength and balance as indicated by improvements in the 5x sit to stand test and Camacho balance test. Pt continues to have limited endurance during 6 MWT using 1 trekking pole. She would benefit from more stable AD use, such as a 4WW. 6MWT goal updated to allow for LRAD use. Pt would benefit from skilled PT intervention for gait training with 4WW or other more stable AD, continued balance training to maximize gains and decrease fall risk, in addition to BLE strengthening for improved activity tolerance and maintenance of independent exercise program. Physical Therapy Plan Frequency and Duration Frequency of Treatment 2x/Week Duration of treatment (weeks) 24 Plan of Care Start Date 02/12/23 Plan of Care End Date 07/23/23 Therapeutic Interventions Therapeutic Interventions Balance Training,Coordination Training,Gait Training,Home Exercise Program,Manual Therapy,Neuromuscular Re- education,Patient/Caregiver Education,Self-Care/Home Management,Soft Tissue Mobilization,Taping, Therapeutic Activities, Therapeutic Exercises Modalities Cold Pack/Ice Massage,Hot Packs Next Visit Focus/Plan Next Note Type Treatment Note Next Visit Plan Gait training with 4WW (repeat ~6 MWT for distance), add inclines/obstacles with/out trek pole/AD. Continue with balance training and BLE strengthening. Update HEP with HO Assess response to increasing recumbent bike Lvl 8>9 and consider FWW training and exercise log. Update HEP focus on higher level balance and gait (melvin uneven surfaces, inclines, etc ) with and without trek pole. Cont with core and hip strengthening
--- NOTE | 2023-06-08 16:25 | PT.OTN ---
Current Diagnoses Unsteadiness on feet (06/08/23) Other abnormalities of gait and mobility (06/08/23) Weakness (06/08/23) Physical Therapy Treatment Note PT-OP-A Visit Information Start: 02/12/23 16:06 Freq: Status: Active Protocol: Document 06/08/23 14:34 AMH (Rec: 06/08/23 15:19 AMH [id number]) Out-Patient Physical Therapy Visit Information Visit Information Visit Type Treatment Note Visit Start Time 14:30 Visit Stop Time 15:15 Total Visit Minutes 43 Visit Number 26 PT-OP-B Current Condition Start: 02/12/23 16:06 Freq: Status: Active Protocol: Document 02/25/23 13:31 AMH(2) (Rec: 02/25/23 14:17 AMH(2) [id number]) Current Condition History of Current Condition Onset Date 2020 Current Complaints weakness, unsteadiness History of Current Condition Pt reports that she would like to improve her balance, strength and endurance. Pt with hx of bilateral TKA. Pt had a fall in Dec 2020 and fractured her L patella. She wore a knee immplizer and had surgery, though continues to have difficulty with knee. Pt reports that she locks knee in standing for stability. Pt reports that she walks with walking stick for community ambulation and no AD with household. Pt denies fall since her fall in 2020. Pt reports that she is able to ambulate 2-3 blocks before need to sit because of knee pain and fatigue. Pt reports that she recently got a recumbent bike and plans to use it daily for 20 min. Prior Treatments and Tests Prior PT for knees, back and balance issues Future Testing and Treatments Planned Pt will see her PCP next week and hoping to get low back x- rays PT-OP-C Subjective Start: 02/12/23 16:06 Freq: Status: Active Protocol: Document 06/08/23 14:34 AMH (Rec: 06/08/23 15:19 AMH [id number]) OP-PT Subjective Patient Comments Patient Comments Nevaeh notes its her low back that limits her as it gets fatigued easily, she finds that laying down and doing her DKTC exercises helps. She also notes her walker is big and hard to fold PT-OP-D Balance Start: 02/12/23 16:06 Freq: Status: Active Protocol: Document 03/29/23 13:33 AMH(2) (Rec: 03/29/23 14:18 AMH(2) [id number]) Camacho Balance Assessment Evaluation Sitting to Standing Ability Independent w/out Hands Unsupported Stance Safely- 2 minutes Sitting Unsupported, Feet on Floor Safely- 2 minutes Standing to Sitting Ability Safely, Minimal Hand Use Transfer Ability Safely, Minimal Hand Use Unsupported Stance- Eyes Closed Supervision, 10 seconds Unsupported Stance- Eyes Open Supervision to maintain Reaching Forward Standing Confidently, 10 inches Pick- Up Object From Floor Independent/Safe Look Behind Shoulder - Standing Shifts Weight Well Turning 360 Degrees Turns , < 4 secs Unsupported Stance, Alternating Feet on (I)- 8 Steps in > 20 secs Stair Unsupported Tandem Stance Small Step- 30 seconds Unilateral Leg Stance Lifts Leg/Unable to Hold Total Score Camacho Total Score (out of 56 points) 47 PT-OP-E Functional Tests Start: 02/12/23 16:06 Freq: Status: Active Protocol: Document 03/29/23 13:33 AMH(2) (Rec: 03/29/23 14:18 AMH(2) [id number]) Functional Tests Five Times Sit to Stand Test Score 18.7 Comments 20 in height PT-OP-G Mobility & Gait Start: 02/12/23 16:06 Freq: Status: Active Protocol: Document 02/25/23 13:31 AMH(2) (Rec: 02/25/23 14:18 AMH(2) [id number]) OP Gait Assessment Gait Gait Assistance Required: Independent Gait Deviations General Gait Pattern Antalgic Factors Limiting Gait Function Factors Limiting Gait Function Decreased Strength,Pain,Poor Balance Comments Gait Comments Pt ambulates with unilateral trekking pole. PT-OP-J Posture/Palpation/Skin Start: 02/12/23 16:06 Freq: Status: Active Protocol: Document 02/12/23 16:07 AMH(2) (Rec: 02/12/23 17:26 AMH(2) [id number]) Posture Evaluation Position Standing L-Spine Posture Flexed Pelvis Posture Anteriorly Tilted PT-OP-M Strength Start: 02/12/23 16:06 Freq: Status: Active Protocol: Document 02/12/23 16:07 AMH(2) (Rec: 02/12/23 17:26 AMH(2) [id number]) Hip Strength Hip Manual Muscle Testing Left Flexion (L2) 4- Good- Abduction 4- Good- Adduction 4- Good- Right Flexion (L2) 4- Good- Abduction 4- Good- Adduction 4- Good- Knee Strength Knee Manual Muscle Testing Left Flexion (S2) 4- Good- Extension (L3) 3+ Fair+ Right Flexion (S2) 4- Good- Extension (L3) 4- Good- Ankle/Foot Strength Ankle and Foot Manual Muscle Testing Left Dorsiflexion (L4) 4- Good- Plantarflexion (S1) 4- Good- Right Dorsiflexion (L4) 4- Good- Plantarflexion (S1) 4- Good- PT-OP-Q Treatments Start: 02/12/23 16:06 Freq: Status: Active Protocol: Document 06/08/23 14:34 AMH (Rec: 06/08/23 15:19 [facility] [id number]) Therapeutic Exercises Supine Exercises DKTC Supine Exercise Name static and w/ gentle lateral rocks Side bilateral Equipment Used hi-lo table Reps/Minutes x30s ea Comments relieves lumbar stiffness and pain calf stretch Side bilateral Resistance 62# Equipment Used Shuttle Recovery Reps/Minutes x1 min Comments feels really good LTR Supine Exercise Name lower trunk rotation Side bilateral Reps/Minutes x10 ea Comments vc for PPT to avoid lumbar hyperextension Abdominal iso Supine Exercise Name Hooklying position, swissball on LE. hands clasped, push down into ball Equipment Used orange israeli ball Reps/Minutes 10x5 sec Bent Knee fall out Side bilateral Reps/Minutes 2x10 Comments cues for trunk stab Hip flexor stretch Supine Exercise Name Derek Side right Reps/Minutes 2x30 sec Bridge Supine Exercise Name Bridge Side bilateral Equipment Used Lvl 2 Hope Tb above knees- not today Reps/Minutes x10 Comments vc for gluteal activation, no breathholding SAQ Supine Exercise Name SAQ Side left Reps/Minutes x10 SKTC Side bilateral Reps/Minutes 2x30 sec ea Standing Exercises marching Standing Exercise Name fwd standing march Side bilateral Resistance lvl 2 teal tb Equipment Used 2 fingers hand rail Reps/Minutes 1x10 for HEP review Comments cues for upright posture, neutral foot position, no L knee hyperext Calf stretch Equipment Used ROSE Reps/Minutes x30 sec shoulder rows Side bilateral Resistance GTB Reps/Minutes 2x10 Comments cues for hip extension for upright posture, cues for scap control step-up Standing Exercise Name Step up Side left Equipment Used // bars, 6 in step, 1 MONEY ORDER CLERK>2- finger touch Reps/Minutes 2x10 Comments LLE miles x1 w/ 2-finger touch Gait Training Gait Activity 4WW Device Used 4WW Level of Assistance IND Surface stable Distance/Duration 500ft Treatment Focus nml gait, endurance, stability Comments Pt demos improved stability with 4WW vs walking stick. PT-OP-R Modalities Start: 02/12/23 16:06 Freq: Status: Active Protocol: Document 06/01/23 13:46 NBM (Rec: 06/01/23 15:57 NBM [id number]) Hot Pack/Cold Pack Treatment Hot Pack Location lumbar Patient Position Hooklying Treatment Duration (minutes) 15 Patient Tolerance Good PT-OP-T Assessment and Plan Start: 02/12/23 16:06 Freq: Status: Active Protocol: Document 06/08/23 14:30 AMH (Rec: 06/08/23 16:25 AMH [id number]) Physical Therapy Assessment Assessment Summary Assessment Nevaeh reports she used to have a 4wheeled walker that was easier to fold up and it had foot rests. She ended up giving it to [facility] thinking she wouldn't need it and now she wishes she had it. Her other walker she says is bulkier. She likes the one in the clinic and I talked to her about looking at [facility] again as walkers come through there quite often . Nevaeh would benefit from continued gait, balance, core, hip, and postural strengthening Physical Therapy Plan Frequency and Duration Frequency of Treatment 2x/Week Duration of treatment (weeks) 24 Plan of Care Start Date 02/12/23 Plan of Care End Date 07/23/23 Therapeutic Interventions Therapeutic Interventions Balance Training,Coordination Training,Gait Training,Home Exercise Program,Manual Therapy,Neuromuscular Re- education,Patient/Caregiver Education,Self-Care/Home Management,Soft Tissue Mobilization,Taping, Therapeutic Activities, Therapeutic Exercises Modalities Cold Pack/Ice Massage,Hot Packs Next Visit Focus/Plan Next Note Type Treatment Note Next Visit Plan Gait training with 4WW (repeat ~6 MWT for distance), add inclines/obstacles with/out trek pole/AD. Continue with balance training and BLE strengthening. Update HEP with HO Assess response to increasing recumbent bike Lvl 8>9 and consider FWW training and exercise log. Update HEP focus on higher level balance and gait (melvin uneven surfaces, inclines, etc ) with and without trek pole. Cont with core and hip strengthening
--- NOTE | 2023-06-15 15:22 | PT.OTN ---
Current Diagnoses Unsteadiness on feet (06/15/23) Other abnormalities of gait and mobility (06/15/23) Weakness (06/15/23) Physical Therapy Treatment Note PT-OP-A Visit Information Start: 02/12/23 16:06 Freq: Status: Active Protocol: Document 06/15/23 13:49 NBM (Rec: 06/15/23 15:16 NBM [id number]) Out-Patient Physical Therapy Visit Information Visit Information Visit Type Treatment Note Visit Start Time 13:49 Visit Stop Time 14:31 Total Visit Minutes 42 Visit Number 28 Number of PRODUCT SAFETY EXPERT Visits 2 PT-OP-B Current Condition Start: 02/12/23 16:06 Freq: Status: Active Protocol: Document 02/25/23 13:31 AM (Rec: 02/25/23 14:17 AM [id number]) Current Condition History of Current Condition Onset Date 2020 Current Complaints weakness, unsteadiness History of Current Condition Pt reports that she would like to improve her balance, strength and endurance. Pt with hx of bilateral TKA. Pt had a fall in Dec 2020 and fractured her L patella. She wore a knee immplizer and had surgery, though continues to have difficulty with knee. Pt reports that she locks knee in standing for stability. Pt reports that she walks with walking stick for community ambulation and no AD with household. Pt denies fall since her fall in 2020. Pt reports that she is able to ambulate 2-3 blocks before need to sit because of knee pain and fatigue. Pt reports that she recently got a recumbent bike and plans to use it daily for 20 min. Prior Treatments and Tests Prior PT for knees, back and balance issues Future Testing and Treatments Planned Pt will see her PCP next week and hoping to get low back x- rays PT-OP-C Subjective Start: 02/12/23 16:06 Freq: Status: Active Protocol: Document 06/15/23 13:49 NBM (Rec: 06/15/23 15:16 NBM [id number]) OP-PT Subjective Patient Comments Patient Comments Nevaeh reports no new changes. She has been using Level 9 on her recumbent bike. PT-OP-D Balance Start: 02/12/23 16:06 Freq: Status: Active Protocol: Document 03/29/23 13:33 AM (Rec: 03/29/23 14:18 AM [id number]) Camacho Balance Assessment Evaluation Sitting to Standing Ability Independent w/out Hands Unsupported Stance Safely- 2 minutes Sitting Unsupported, Feet on Floor Safely- 2 minutes Standing to Sitting Ability Safely, Minimal Hand Use Transfer Ability Safely, Minimal Hand Use Unsupported Stance- Eyes Closed Supervision, 10 seconds Unsupported Stance- Eyes Open Supervision to maintain Reaching Forward Standing Confidently, 10 inches Pick- Up Object From Floor Independent/Safe Look Behind Shoulder - Standing Shifts Weight Well Turning 360 Degrees Turns , < 4 secs Unsupported Stance, Alternating Feet on (I)- 8 Steps in > 20 secs Stair Unsupported Tandem Stance Small Step- 30 seconds Unilateral Leg Stance Lifts Leg/Unable to Hold Total Score Camacho Total Score (out of 56 points) 47 PT-OP-E Functional Tests Start: 02/12/23 16:06 Freq: Status: Active Protocol: Document 03/29/23 13:33 AM (Rec: 03/29/23 14:18 AM [id number]) Functional Tests Five Times Sit to Stand Test Score 18.7 Comments 20 in height PT-OP-G Mobility & Gait Start: 02/12/23 16:06 Freq: Status: Active Protocol: Document 02/25/23 13:31 AM (Rec: 02/25/23 14:18 AM [id number]) OP Gait Assessment Gait Gait Assistance Required: Independent Gait Deviations General Gait Pattern Antalgic Factors Limiting Gait Function Factors Limiting Gait Function Decreased Strength,Pain,Poor Balance Comments Gait Comments Pt ambulates with unilateral trekking pole. PT-OP-J Posture/Palpation/Skin Start: 02/12/23 16:06 Freq: Status: Active Protocol: Document 02/12/23 16:07 AM (Rec: 02/12/23 17:26 AM [id number]) Posture Evaluation Position Standing L-Spine Posture Flexed Pelvis Posture Anteriorly Tilted PT-OP-M Strength Start: 02/12/23 16:06 Freq: Status: Active Protocol: Document 02/12/23 16:07 AM (Rec: 02/12/23 17:26 AM [id number]) Hip Strength Hip Manual Muscle Testing Left Flexion (L2) 4- Good- Abduction 4- Good- Adduction 4- Good- Right Flexion (L2) 4- Good- Abduction 4- Good- Adduction 4- Good- Knee Strength Knee Manual Muscle Testing Left Flexion (S2) 4- Good- Extension (L3) 3+ Fair+ Right Flexion (S2) 4- Good- Extension (L3) 4- Good- Ankle/Foot Strength Ankle and Foot Manual Muscle Testing Left Dorsiflexion (L4) 4- Good- Plantarflexion (S1) 4- Good- Right Dorsiflexion (L4) 4- Good- Plantarflexion (S1) 4- Good- PT-OP-Q Treatments Start: 02/12/23 16:06 Freq: Status: Active Protocol: Document 06/15/23 13:49 NB (Rec: 06/15/23 15:16 [facility] [id number]) Gym Equipment Shuttle Recovery Unilateral Squats Details cues for knee flex to 90deg, and to not hyperext LLE Resistance 75# (3 navy>2 navy 1 teal) x 5 , 62# x5(2 navy bands) Shuttle Recovery Platform Stable Reps/Time R: 75# (3 navy>2 navy 1 teal) x 5, 62# x5 (2 navy bands) L: 75#>62#>50# x10 Bilateral Squats Resistance 100# (3 navy, 1 teal) Shuttle Recovery Platform Stable Reps/Time 2x10 Therapeutic Exercises Supine Exercises Hamstring curls Side bilateral Resistance Lvl 2 Tb Equipment Used 55cm orange ball Reps/Minutes x15 ea w/ wo band Comments cues for LE alignment DKTC Supine Exercise Name static and w/ gentle lateral rocks Side bilateral Equipment Used hi-lo table Reps/Minutes x30s ea Comments relieves lumbar stiffness and pain calf stretch Supine Exercise Name calf and hamstrings Side bilateral Resistance 62# Equipment Used Shuttle Recovery Reps/Minutes x1 min Comments w/ ankle pumps LTR Supine Exercise Name lower trunk rotation Side bilateral Reps/Minutes x10 ea Comments vc for PPT to avoid lumbar hyperextension Abdominal iso Supine Exercise Name Hooklying position, swissball on LE. hands clasped, push down into ball Equipment Used orange salvadorean ball Reps/Minutes 10x5 sec Bent Knee fall out Side bilateral Reps/Minutes 2x10 Comments cues for trunk stab, PPT Hip flexor stretch Supine Exercise Name Derek Side bilateral Reps/Minutes 2x30 sec Comments w/ manual assistance from PRODUCT SAFETY EXPERT applied distally Bridge Supine Exercise Name Bridge Side bilateral Equipment Used Lvl 2 Tb above knees Reps/Minutes x10 ea w/wo band Comments vc for gluteal activation, no breathholding SAQ Supine Exercise Name SAQ Side bilateral Reps/Minutes x10 SKTC Supine Exercise Name 1. straight 2. opposite shoulder Side bilateral Reps/Minutes 2x30 sec ea Self-Care/Home Management Treatment Education Patient Education Home Exercise Program Other Education Encouraged to start Lvl 10 resistance progressive time starting at 1 min on recumbent bike. PT-OP-R Modalities Start: 02/12/23 16:06 Freq: Status: Active Protocol: Document 06/01/23 13:46 NBM (Rec: 06/01/23 15:57 NBM [id number]) Hot Pack/Cold Pack Treatment Hot Pack Location lumbar Patient Position Hooklying Treatment Duration (minutes) 15 Patient Tolerance Good PT-OP-T Assessment and Plan Start: 02/12/23 16:06 Freq: Status: Active Protocol: Document 06/15/23 13:49 NBM (Rec: 06/15/23 15:16 NBM [id number]) Physical Therapy Assessment Goals Tandem stance Impairment Balance Impairment Pt able to hold tandem stance for 10 seconds, requiring use of hands to achieve position. Short Term Goal (STG) Pt able to hold tandem stance bilaterally for 16 seconds. 03/04/23: Goal progressing. Pt able to hold for 15 seconds bilaterally. STG Duration 03/04/23 Care Home Goal (LTG) Pt able to hold tandem stance for 25 seconds bilaterally. 06/03/23: Pt able to maintain tandem stance for 30 seconds with RLE and semi-tandem stance with LLE for 30 seconds . Continues to demo difficulty with achieving position. 04/26/23: unable to hold 10 sec without LOB 03/26/23: Pt able to hold 15 seconds bilaterally LTG Duration 04/30/23 PROGRESSING HEP Impairment Pt with limited HEP Plate Shop Helper Goal (LTG) Pt is independent with HEP PROGRESSING 06/03/23: Pt reports min compliance with HEP LTG Duration 04/30/23 PROGRESSING Balance Impairment Camacho balance Impairment Camacho balance score of 38/56 Short Term Goal (STG) Pt with improved balance with improved Camacho balance score of 43/56. 03/08/23: Camacho balance score of 43/56 STG Duration 03/04/23 (Goal met 03/08/23: 43/ 56) Plate Shop Helper Goal (LTG) Pt with improved balance with improved Camacho balance score of 48/56 06/03/23: MET, score 48/56. Pt only unable to perform standing on 1 foot and difficulty with maintaining tandem stance 03/26/23: 47/56 Camacho Balance score GOAL NOT MET 04/26/23: 47/56 ( unchanged) LTG Duration 04/30/23 MET Strength Impairment Strength Impairment Pt able to complete 5 STS squats in 34.7 seconds with minimal use of unilateral UE at chair that is 20 inches in height. Short Term Goal (STG) Pt able to complete 5 STS squats in 25 seconds without use of UE at chair that is 20 inches in height. Goal Met: 03/04/23 Pt able to complete in 25 seconds. STG Duration 03/05/23 Care Home Goal (LTG) Pt able to complete 5 STS squats in 18 seconds without use of UE at chair that is 20 inches in height. 06/03/23: 16.76 sec 5x STS squats without UE use from 20 chair 04/26/23: 22 sec 5x STS squats (regression) 03/29/23: Pt able to do 5 STS squats in 19 seconds without UE support. LTG Duration 04/30/23 MET 6MWT Impairment Endurance Impairment Pt able to ambulate 886 ft with unilateral trekking pole in 6 minutes. Short Term Goal (STG) Pt able to ambulate 1000 ft with unilateral trekking pole or LRAD in 6 minutes. 03/04/23. Pt ambulated 804 ft. Pt reports increase in LBP with walking. Goal unmet on 06/03/23: 974 ft with uni trekking pole. Would benefit from more stable AD. 06/11/23: Pt ambulates 1,083 ft w/ 4WW - goal met. STG Duration 03/05/23 - Goal met 06/11/23 Plate Shop Helper Goal (LTG) Pt able to ambulate 1150 ft with unilateral trekking pole or LRAD in 6 minutes. GOAL UNMET 06/03/23: 974 ft with uni trekking pole. Pt would benefit from more stable AD 04/26/23: 874 FT with uni trekking pole Goal unmet on 03/29/23: Pt ambulated 805ft. 06/11/23: Pt ambulates 1,083 ft w/ 4WW. LTG Duration 04/30/23 NOT MET Assessment Summary Assessment Treatment focus on LE strengthening, stretching, hip and trunk mobility. Nevaeh tolerates increased resistance from 87#>100# bilateral squats on Shuttle Recovery 2x10, but is unable to tolerate unchanged resistance for unilateral squats after and is encouraged to advise her response to increased resistance at next visit. She tolerates resisted hamstring curls on physioball w/ Lvl 2 Tb. She requires cues for PPT with BKFO and Derek hip flexor stretch, and cues for breathholding and breathwork with bridging today, but otherwise demonstrates good form with supine ex's. Pt plans to use lumbar hot pack at home later today. Physical Therapy Plan Frequency and Duration Frequency of Treatment 2x/Week Duration of treatment (weeks) 24 Plan of Care Start Date 02/12/23 Plan of Care End Date 07/23/23 Therapeutic Interventions Therapeutic Interventions Balance Training,Coordination Training,Gait Training,Home Exercise Program,Manual Therapy,Neuromuscular Re- education,Patient/Caregiver Education,Self-Care/Home Management,Soft Tissue Mobilization,Taping, Therapeutic Activities, Therapeutic Exercises Modalities Cold Pack/Ice Massage,Hot Packs Next Visit Focus/Plan Next Note Type Treatment Note Next Visit Plan Consider daily exercise log for HEP. Continue POC. POC: Gait training with 4WW ( repeat ~6 MWT for distance), add inclines/obstacles with/ out trek pole/AD. Continue with balance training and BLE strengthening. Update HEP with HO. Update HEP focus on higher level balance and gait (melvin uneven surfaces, inclines, etc ) with and without trek pole. Cont with core and hip strengthening
--- NOTE | 2023-06-17 14:30 | PT.OTN ---
Current Diagnoses Unsteadiness on feet (06/17/23) Other abnormalities of gait and mobility (06/17/23) Weakness (06/17/23) Physical Therapy Treatment Note PT-OP-A Visit Information Start: 02/12/23 16:06 Freq: Status: Active Protocol: Document 06/17/23 13:47 SP (Rec: 06/17/23 15:20 SP [id number]) Out-Patient Physical Therapy Visit Information Visit Information Visit Type Treatment Note Visit Start Time 13:47 Visit Stop Time 14:30 Total Visit Minutes 43 Visit Number 29 Number of INCIDENT RESPONSE SPECIALIST Visits 3 Evaluation Information Evaluation Date 02/12/23 Precautions Precautions LBP, prior fusion PT-OP-B Current Condition Start: 02/12/23 16:06 Freq: Status: Active Protocol: Document 02/25/23 13:31 AM (Rec: 02/25/23 14:17 AM [id number]) Current Condition History of Current Condition Onset Date 2020 Current Complaints weakness, unsteadiness History of Current Condition Pt reports that she would like to improve her balance, strength and endurance. Pt with hx of bilateral TKA. Pt had a fall in Dec 2020 and fractured her L patella. She wore a knee immplizer and had surgery, though continues to have difficulty with knee. Pt reports that she locks knee in standing for stability. Pt reports that she walks with walking stick for community ambulation and no AD with household. Pt denies fall since her fall in 2020. Pt reports that she is able to ambulate 2-3 blocks before need to sit because of knee pain and fatigue. Pt reports that she recently got a recumbent bike and plans to use it daily for 20 min. Prior Treatments and Tests Prior PT for knees, back and balance issues Future Testing and Treatments Planned Pt will see her PCP next week and hoping to get low back x- rays PT-OP-C Subjective Start: 02/12/23 16:06 Freq: Status: Active Protocol: Document 06/17/23 13:47 SP (Rec: 06/17/23 15:20 SP [id number]) OP-PT Subjective Patient Comments Patient Comments Pt PT-OP-D Balance Start: 02/12/23 16:06 Freq: Status: Active Protocol: Document 03/29/23 13:33 AM (Rec: 03/29/23 14:18 AM [id number]) Camacho Balance Assessment Evaluation Sitting to Standing Ability Independent w/out Hands Unsupported Stance Safely- 2 minutes Sitting Unsupported, Feet on Floor Safely- 2 minutes Standing to Sitting Ability Safely, Minimal Hand Use Transfer Ability Safely, Minimal Hand Use Unsupported Stance- Eyes Closed Supervision, 10 seconds Unsupported Stance- Eyes Open Supervision to maintain Reaching Forward Standing Confidently, 10 inches Pick- Up Object From Floor Independent/Safe Look Behind Shoulder - Standing Shifts Weight Well Turning 360 Degrees Turns , < 4 secs Unsupported Stance, Alternating Feet on (I)- 8 Steps in > 20 secs Stair Unsupported Tandem Stance Small Step- 30 seconds Unilateral Leg Stance Lifts Leg/Unable to Hold Total Score Camacho Total Score (out of 56 points) 47 PT-OP-E Functional Tests Start: 02/12/23 16:06 Freq: Status: Active Protocol: Document 03/29/23 13:33 AM (Rec: 03/29/23 14:18 AM [id number]) Functional Tests Five Times Sit to Stand Test Score 18.7 Comments 20 in height PT-OP-G Mobility & Gait Start: 02/12/23 16:06 Freq: Status: Active Protocol: Document 02/25/23 13:31 AM (Rec: 02/25/23 14:18 AM [id number]) OP Gait Assessment Gait Gait Assistance Required: Independent Gait Deviations General Gait Pattern Antalgic Factors Limiting Gait Function Factors Limiting Gait Function Decreased Strength,Pain,Poor Balance Comments Gait Comments Pt ambulates with unilateral trekking pole. PT-OP-J Posture/Palpation/Skin Start: 02/12/23 16:06 Freq: Status: Active Protocol: Document 02/12/23 16:07 AM (Rec: 02/12/23 17:26 AM [id number]) Posture Evaluation Position Standing L-Spine Posture Flexed Pelvis Posture Anteriorly Tilted PT-OP-M Strength Start: 02/12/23 16:06 Freq: Status: Active Protocol: Document 02/12/23 16:07 AM (Rec: 02/12/23 17:26 AM [id number]) Hip Strength Hip Manual Muscle Testing Left Flexion (L2) 4- Good- Abduction 4- Good- Adduction 4- Good- Right Flexion (L2) 4- Good- Abduction 4- Good- Adduction 4- Good- Knee Strength Knee Manual Muscle Testing Left Flexion (S2) 4- Good- Extension (L3) 3+ Fair+ Right Flexion (S2) 4- Good- Extension (L3) 4- Good- Ankle/Foot Strength Ankle and Foot Manual Muscle Testing Left Dorsiflexion (L4) 4- Good- Plantarflexion (S1) 4- Good- Right Dorsiflexion (L4) 4- Good- Plantarflexion (S1) 4- Good- PT-OP-Q Treatments Start: 02/12/23 16:06 Freq: Status: Active Protocol: Document 06/17/23 13:47 SP (Rec: 06/17/23 15:20 SP [id number]) Gym Equipment Shuttle Recovery Unilateral Squats Details cues for knee flex to 90deg, and to not hyperext LLE Resistance 75# (3 navy>2 navy 1 teal) x 10, 62# x5(2 navy bands) Shuttle Recovery Platform Stable Bilateral Heel Raises Details tactile cues not to hyperext LLE Resistance 75# (3 navy) Shuttle Recovery Platform Stable Reps/Time 2x20 Therapeutic Exercises Standing Exercises HS curl Standing Exercise Name trialed in PT Resistance 4# leg wt Equipment Used BUE rail support Reps/Minutes 2x10 Comments cued elongated posture, knees //, control return 3-way hip Standing Exercise Name hip abd, ext Side bilateral Resistance 4# leg wt Equipment Used light 1 hand support //bar Reps/Minutes 2x10 ea Comments cue for slight fwd lean to decrease LBP, eccentric control Gait Training Gait Activity 6 MWT Device Used 4WW/transport chair Level of Assistance close SBA Surface stable Distance/Duration 863ft Treatment Focus endurance, nml gait, safety with AD Comments improved soft L knee and level pelvis post cues for proximal and light UE contact on 4WW Trekking poles Device Used unilateral Zenfoliokking pole RUE Level of Assistance SBA, CGA Surface carpet, tile Distance/Duration between activities Treatment Focus endurance and gait pattern, sequencing Comments cues for posture and decreased dian, closer proximation with trekking pole, soft L knee during stance time. Neuro Re-Education Treatment Balance Activities hurdles Details lateral Surface PRN posterior R hand contact during L stance time RLE advancment Equipment 5- 6 hurdles, // bars, Gait Belt Reps/Duration 6x 10ft Comments cues scap retraction, core fac , step to stable, receiprocal stepping challenge LLE stance time. PT-OP-R Modalities Start: 02/12/23 16:06 Freq: Status: Active Protocol: Document 06/01/23 13:46 NBM (Rec: 06/01/23 15:57 NBM [id number]) Hot Pack/Cold Pack Treatment Hot Pack Location lumbar Patient Position Hooklying Treatment Duration (minutes) 15 Patient Tolerance Good PT-OP-T Assessment and Plan Start: 02/12/23 16:06 Freq: Status: Active Protocol: Document 06/17/23 13:47 SP (Rec: 06/17/23 15:20 SP [id number]) Physical Therapy Assessment Goals Tandem stance Impairment Balance Impairment Pt able to hold tandem stance for 10 seconds, requiring use of hands to achieve position. Short Term Goal (STG) Pt able to hold tandem stance bilaterally for 16 seconds. 03/04/23: Goal progressing. Pt able to hold for 15 seconds bilaterally. STG Duration 03/04/23 Casing Trimmer Goal (LTG) Pt able to hold tandem stance for 25 seconds bilaterally. 06/03/23: Pt able to maintain tandem stance for 30 seconds with RLE and semi-tandem stance with LLE for 30 seconds . Continues to demo difficulty with achieving position. 04/26/23: unable to hold 10 sec without LOB 03/26/23: Pt able to hold 15 seconds bilaterally LTG Duration 04/30/23 PROGRESSING HEP Impairment Pt with limited HEP Casing Trimmer Goal (LTG) Pt is independent with HEP PROGRESSING 06/03/23: Pt reports min compliance with HEP LTG Duration 04/30/23 PROGRESSING Balance Impairment Camacho balance Impairment Camacho balance score of 38/56 Short Term Goal (STG) Pt with improved balance with improved Camacho balance score of 43/56. 03/08/23: Camacho balance score of 43/56 STG Duration 03/04/23 (Goal met 03/08/23: 43/ 56) Casing Trimmer Goal (LTG) Pt with improved balance with improved Camacho balance score of 48/56 06/03/23: MET, score 48/56. Pt only unable to perform standing on 1 foot and difficulty with maintaining tandem stance 03/26/23: 47/56 Camacho Balance score GOAL NOT MET 04/26/23: 47/56 ( unchanged) LTG Duration 04/30/23 MET Strength Impairment Strength Impairment Pt able to complete 5 STS squats in 34.7 seconds with minimal use of unilateral UE at chair that is 20 inches in height. Short Term Goal (STG) Pt able to complete 5 STS squats in 25 seconds without use of UE at chair that is 20 inches in height. Goal Met: 03/04/23 Pt able to complete in 25 seconds. STG Duration 03/05/23 Casing Trimmer Goal (LTG) Pt able to complete 5 STS squats in 18 seconds without use of UE at chair that is 20 inches in height. 06/03/23: 16.76 sec 5x STS squats without UE use from 20 chair 04/26/23: 22 sec 5x STS squats (regression) 03/29/23: Pt able to do 5 STS squats in 19 seconds without UE support. LTG Duration 04/30/23 MET 6MWT Impairment Endurance Impairment Pt able to ambulate 886 ft with unilateral trekking pole in 6 minutes. Short Term Goal (STG) Pt able to ambulate 1000 ft with unilateral trekking pole or LRAD in 6 minutes. 03/04/23. Pt ambulated 804 ft. Pt reports increase in LBP with walking. Goal unmet on 06/03/23: 974 ft with uni trekking pole. Would benefit from more stable AD. 06/11/23: Pt ambulates 1,083 ft w/ 4WW - goal met. STG Duration 03/05/23 - Goal met 06/11/23 [facility] Goal (LTG) Pt able to ambulate 1150 ft with unilateral trekking pole or LRAD in 6 minutes. GOAL UNMET 06/03/23: 974 ft with uni trekking pole. Pt would benefit from more stable AD 04/26/23: 874 FT with uni trekking pole Goal unmet on 03/29/23: Pt ambulated 805ft. 06/11/23: Pt ambulates 1,083 ft w/ 4WW. LTG Duration 04/30/23 NOT MET Assessment Summary Assessment Tx focused on LE strengthening , 6MWT /c use 4WW, improved HS and core support with less hyperextension L knee during gait and laith receiprocal stepping with less UE support. Physical Therapy Plan Frequency and Duration Frequency of Treatment 2x/Week Duration of treatment (weeks) 24 Plan of Care Start Date 02/12/23 Plan of Care End Date 07/23/23 Therapeutic Interventions Therapeutic Interventions Balance Training,Coordination Training,Gait Training,Home Exercise Program,Manual Therapy,Neuromuscular Re- education,Patient/Caregiver Education,Self-Care/Home Management,Soft Tissue Mobilization,Taping, Therapeutic Activities, Therapeutic Exercises Modalities Cold Pack/Ice Massage,Hot Packs Next Visit Focus/Plan Next Note Type Treatment Note Next Visit Plan Consider daily exercise log for HEP. Continue POC. POC: Gait training with 4WW ( repeat ~6 MWT for distance), add inclines/obstacles with/ out trek pole/AD. Continue with balance training and BLE strengthening. Update HEP with HO. Update HEP focus on higher level balance and gait (melvin uneven surfaces, inclines, etc ) with and without trek pole. Cont with core and hip strengthening
--- NOTE | 2023-06-22 12:36 | PT.OTN ---
Current Diagnoses Unsteadiness on feet (06/22/23) Other abnormalities of gait and mobility (06/22/23) Weakness (06/22/23) Physical Therapy Treatment Note PT-OP-A Visit Information Start: 02/12/23 16:06 Freq: Status: Active Protocol: Document 06/22/23 10:12 NBM (Rec: 06/22/23 11:18 NBM [id number]) Out-Patient Physical Therapy Visit Information Visit Information Visit Type Treatment Note Visit Start Time 10:30 Visit Stop Time 11:15 Total Visit Minutes 45 Visit Number 30 Number of [employer]PUT[employer]SEL Visits 4 Evaluation Information Evaluation Date 02/12/23 Precautions Precautions LBP, prior fusion PT-OP-B Current Condition Start: 02/12/23 16:06 Freq: Status: Active Protocol: Document 02/25/23 13:31 AM (Rec: 02/25/23 14:17 AM [id number]) Current Condition History of Current Condition Onset Date 2020 Current Complaints weakness, unsteadiness History of Current Condition Pt reports that she would like to improve her balance, strength and endurance. Pt with hx of bilateral TKA. Pt had a fall in Dec 2020 and fractured her L patella. She wore a knee immplizer and had surgery, though continues to have difficulty with knee. Pt reports that she locks knee in standing for stability. Pt reports that she walks with walking stick for community ambulation and no AD with household. Pt denies fall since her fall in 2020. Pt reports that she is able to ambulate 2-3 blocks before need to sit because of knee pain and fatigue. Pt reports that she recently got a recumbent bike and plans to use it daily for 20 min. Prior Treatments and Tests Prior PT for knees, back and balance issues Future Testing and Treatments Planned Pt will see her PCP next week and hoping to get low back x- rays PT-OP-C Subjective Start: 02/12/23 16:06 Freq: Status: Active Protocol: Document 06/22/23 10:12 NBM (Rec: 06/22/23 11:18 NBM [id number]) OP-PT Subjective Patient Comments Patient Comments Nevaeh reports she has tried Level 10 for a minute and then lowered it to 9 on recumbent bicycle. She did some of her bed ex's this morning but not all. PT-OP-D Balance Start: 02/12/23 16:06 Freq: Status: Active Protocol: Document 03/29/23 13:33 AM (Rec: 03/29/23 14:18 AM [id number]) Camacho Balance Assessment Evaluation Sitting to Standing Ability Independent w/out Hands Unsupported Stance Safely- 2 minutes Sitting Unsupported, Feet on Floor Safely- 2 minutes Standing to Sitting Ability Safely, Minimal Hand Use Transfer Ability Safely, Minimal Hand Use Unsupported Stance- Eyes Closed Supervision, 10 seconds Unsupported Stance- Eyes Open Supervision to maintain Reaching Forward Standing Confidently, 10 inches Pick- Up Object From Floor Independent/Safe Look Behind Shoulder - Standing Shifts Weight Well Turning 360 Degrees Turns , < 4 secs Unsupported Stance, Alternating Feet on (I)- 8 Steps in > 20 secs Stair Unsupported Tandem Stance Small Step- 30 seconds Unilateral Leg Stance Lifts Leg/Unable to Hold Total Score Camacho Total Score (out of 56 points) 47 PT-OP-E Functional Tests Start: 02/12/23 16:06 Freq: Status: Active Protocol: Document 03/29/23 13:33 AM (Rec: 03/29/23 14:18 AM [id number]) Functional Tests Five Times Sit to Stand Test Score 18.7 Comments 20 in height PT-OP-G Mobility & Gait Start: 02/12/23 16:06 Freq: Status: Active Protocol: Document 02/25/23 13:31 AM (Rec: 02/25/23 14:18 AM [id number]) OP Gait Assessment Gait Gait Assistance Required: Independent Gait Deviations General Gait Pattern Antalgic Factors Limiting Gait Function Factors Limiting Gait Function Decreased Strength,Pain,Poor Balance Comments Gait Comments Pt ambulates with unilateral trekking pole. PT-OP-J Posture/Palpation/Skin Start: 02/12/23 16:06 Freq: Status: Active Protocol: Document 02/12/23 16:07 AM (Rec: 02/12/23 17:26 AM [id number]) Posture Evaluation Position Standing L-Spine Posture Flexed Pelvis Posture Anteriorly Tilted PT-OP-M Strength Start: 02/12/23 16:06 Freq: Status: Active Protocol: Document 02/12/23 16:07 AM (Rec: 02/12/23 17:26 AM [id number]) Hip Strength Hip Manual Muscle Testing Left Flexion (L2) 4- Good- Abduction 4- Good- Adduction 4- Good- Right Flexion (L2) 4- Good- Abduction 4- Good- Adduction 4- Good- Knee Strength Knee Manual Muscle Testing Left Flexion (S2) 4- Good- Extension (L3) 3+ Fair+ Right Flexion (S2) 4- Good- Extension (L3) 4- Good- Ankle/Foot Strength Ankle and Foot Manual Muscle Testing Left Dorsiflexion (L4) 4- Good- Plantarflexion (S1) 4- Good- Right Dorsiflexion (L4) 4- Good- Plantarflexion (S1) 4- Good- PT-OP-Q Treatments Start: 02/12/23 16:06 Freq: Status: Active Protocol: Document 06/22/23 10:12 [facility] (Rec: 06/22/23 11:18 [facility] [id number]) Gym Equipment Shuttle Recovery Unilateral Squats Details cues for knee flex to 90deg, and to not hyperext LLE Resistance R 75# (3 navy>2 navy 1 teal)> 62# x8, L 62# x8 (2 navy bands ) Shuttle Recovery Platform Stable Bilateral Heel Raises Details tactile cues not to hyperext LLE Resistance 75# (3 navy) Shuttle Recovery Platform Stable Reps/Time 2x20 Bilateral Squats Resistance 75# (3 navy) Shuttle Recovery Platform Stable Reps/Time 2x15 Therapeutic Exercises Supine Exercises calf stretch Supine Exercise Name calf and hamstrings Side bilateral Resistance 75# Equipment Used Shuttle Recovery Reps/Minutes x1 min ea Comments w/ ankle pumps Standing Exercises Fwd Flexion Stretch Standing Exercise Name Forward Flexion stretch for low back/hamstrings Equipment Used handrail prn for, CGA at hips Reps/Minutes 2 x 10seconds Comments cues for straight knees, positive feedback response HS curl Standing Exercise Name trialed in PT Resistance 4# leg wt Equipment Used BUE rail support Reps/Minutes 2x10 Comments cued elongated posture, knees //, control return marching Standing Exercise Name fwd standing march w and w/o band Side bilateral Resistance lvl 2 teal tb Equipment Used 2 fingers hand rail Reps/Minutes 1x10 ea Comments cues for upright posture, neutral foot position, no L knee hyperext Standing hip flexor stretch Side bilateral Equipment Used at stairs with railings Reps/Minutes x30 sec ea LE Comments cues for hold 3-way hip Standing Exercise Name hip abd (not today) , ext Side bilateral Resistance 4# leg wt Equipment Used light 1 hand support //bar Reps/Minutes 2x10 ea Comments cue for slight fwd lean to decrease LBP, eccentric control Gait Training Gait Activity 4WW Description obstacles, stop/go, head turns /nods Device Used 4WW Level of Assistance IND Surface stable Distance/Duration 700ft Treatment Focus nml gait, endurance, stability , obstacles, dynamic gait Comments Pt demos improved stability with 4WW vs walking stick. Trekking poles Device Used unilateral trekking pole RUE Level of Assistance SBA, CGA Surface carpet, tile Distance/Duration between activities Treatment Focus endurance and gait pattern, sequencing Comments cues for posture and decreased dian, closer proximation with trekking pole, soft L knee during stance time. improved sequencing. PT-OP-R Modalities Start: 02/12/23 16:06 Freq: Status: Active Protocol: Document 06/01/23 13:46 NBM (Rec: 06/01/23 15:57 [facility] [id number]) Hot Pack/Cold Pack Treatment Hot Pack Location lumbar Patient Position Hooklying Treatment Duration (minutes) 15 Patient Tolerance Good PT-OP-T Assessment and Plan Start: 02/12/23 16:06 Freq: Status: Active Protocol: Document 06/22/23 10:12 NBM (Rec: 06/22/23 11:18 [facility] [id number]) Physical Therapy Assessment Goals Tandem stance Impairment Balance Impairment Pt able to hold tandem stance for 10 seconds, requiring use of hands to achieve position. Short Term Goal (STG) Pt able to hold tandem stance bilaterally for 16 seconds. 03/04/23: Goal progressing. Pt able to hold for 15 seconds bilaterally. STG Duration 03/04/23 Intermediate Goal (LTG) Pt able to hold tandem stance for 25 seconds bilaterally. 06/03/23: Pt able to maintain tandem stance for 30 seconds with RLE and semi-tandem stance with LLE for 30 seconds . Continues to demo difficulty with achieving position. 04/26/23: unable to hold 10 sec without LOB 03/26/23: Pt able to hold 15 seconds bilaterally LTG Duration 04/30/23 PROGRESSING HEP Impairment Pt with limited HEP Caddy Master Goal (LTG) Pt is independent with HEP PROGRESSING 06/03/23: Pt reports min compliance with HEP LTG Duration 04/30/23 PROGRESSING Balance Impairment Camacho balance Impairment Camacho balance score of 38/56 Short Term Goal (STG) Pt with improved balance with improved Camacho balance score of 43/56. 03/08/23: Camacho balance score of 43/56 STG Duration 03/04/23 (Goal met 03/08/23: 43/ 56) Intermediate Goal (LTG) Pt with improved balance with improved Camacho balance score of 48/56 06/03/23: MET, score 48/56. Pt only unable to perform standing on 1 foot and difficulty with maintaining tandem stance 03/26/23: 47/56 Camacho Balance score GOAL NOT MET 04/26/23: 47/56 ( unchanged) LTG Duration 04/30/23 MET Strength Impairment Strength Impairment Pt able to complete 5 STS squats in 34.7 seconds with minimal use of unilateral UE at chair that is 20 inches in height. Short Term Goal (STG) Pt able to complete 5 STS squats in 25 seconds without use of UE at chair that is 20 inches in height. Goal Met: 03/04/23 Pt able to complete in 25 seconds. STG Duration 03/05/23 Caddy Master Goal (LTG) Pt able to complete 5 STS squats in 18 seconds without use of UE at chair that is 20 inches in height. 06/03/23: 16.76 sec 5x STS squats without UE use from 20 chair 04/26/23: 22 sec 5x STS squats (regression) 03/29/23: Pt able to do 5 STS squats in 19 seconds without UE support. LTG Duration 04/30/23 MET 6MWT Impairment Endurance Impairment Pt able to ambulate 886 ft with unilateral trekking pole in 6 minutes. Short Term Goal (STG) Pt able to ambulate 1000 ft with unilateral trekking pole or LRAD in 6 minutes. 03/04/23. Pt ambulated 804 ft. Pt reports increase in LBP with walking. Goal unmet on 06/03/23: 974 ft with uni trekking pole. Would benefit from more stable AD. 06/11/23: Pt ambulates 1,083 ft w/ 4WW - goal met. STG Duration 03/05/23 - Goal met 06/11/23 Caddy Master Goal (LTG) Pt able to ambulate 1150 ft with unilateral trekking pole or LRAD in 6 minutes. GOAL UNMET 06/03/23: 974 ft with uni trekking pole. Pt would benefit from more stable AD 04/26/23: 874 FT with uni trekking pole Goal unmet on 03/29/23: Pt ambulated 805ft. 06/11/23: Pt ambulates 1,083 ft w/ 4WW. LTG Duration 04/30/23 NOT MET Assessment Summary Assessment Nevaeh works hard today on LE strengthening and ambulation w / 4WW. She demonstrates improved upright posture with 4WW but still requires occasional cues for proximation - initially with stop/go ambulation in hallway pt would stop but due to heavy UE weightbearing into 4WW she would continue to push it forward. Ability to control the 4WW when stoping abruptly improves with repetition this session. Physical Therapy Plan Frequency and Duration Frequency of Treatment 2x/Week Duration of treatment (weeks) 24 Plan of Care Start Date 02/12/23 Plan of Care End Date 07/23/23 Therapeutic Interventions Therapeutic Interventions Balance Training,Coordination Training,Gait Training,Home Exercise Program,Manual Therapy,Neuromuscular Re- education,Patient/Caregiver Education,Self-Care/Home Management,Soft Tissue Mobilization,Taping, Therapeutic Activities, Therapeutic Exercises Modalities Cold Pack/Ice Massage,Hot Packs Next Visit Focus/Plan Next Note Type Treatment Note Next Visit Plan Consider daily exercise log for HEP. Continue POC. POC: Gait training with 4WW ( repeat ~6 MWT for distance), add inclines/obstacles with/ out trek pole/AD. Continue with balance training and BLE strengthening. Update HEP with HO. Update HEP focus on higher level balance and gait (melvin uneven surfaces, inclines, etc ) with and without trek pole. Cont with core and hip strengthening
--- NOTE | 2023-06-25 11:32 | PT.OTN ---
Current Diagnoses Unsteadiness on feet (06/25/23) Other abnormalities of gait and mobility (06/25/23) Weakness (06/25/23) Physical Therapy Treatment Note PT-OP-A Visit Information Start: 02/12/23 16:06 Freq: Status: Active Protocol: Document 06/25/23 10:32 NM (Rec: 06/25/23 11:31 NM [id number]) Out-Patient Physical Therapy Visit Information Visit Information Visit Type Treatment Note Visit Start Time 10:32 Visit Stop Time 11:15 Visit Number 31 Evaluation Information Evaluation Date 02/12/23 Precautions Precautions LBP, prior fusion PT-OP-B Current Condition Start: 02/12/23 16:06 Freq: Status: Active Protocol: Document 02/25/23 13:31 AM (Rec: 02/25/23 14:17 AM [id number]) Current Condition History of Current Condition Onset Date 2020 Current Complaints weakness, unsteadiness History of Current Condition Pt reports that she would like to improve her balance, strength and endurance. Pt with hx of bilateral TKA. Pt had a fall in Dec 2020 and fractured her L patella. She wore a knee immplizer and had surgery, though continues to have difficulty with knee. Pt reports that she locks knee in standing for stability. Pt reports that she walks with walking stick for community ambulation and no AD with household. Pt denies fall since her fall in 2020. Pt reports that she is able to ambulate 2-3 blocks before need to sit because of knee pain and fatigue. Pt reports that she recently got a recumbent bike and plans to use it daily for 20 min. Prior Treatments and Tests Prior PT for knees, back and balance issues Future Testing and Treatments Planned Pt will see her PCP next week and hoping to get low back x- rays PT-OP-C Subjective Start: 02/12/23 16:06 Freq: Status: Active Protocol: Document 06/25/23 10:32 NM (Rec: 06/25/23 11:31 NM [id number]) OP-PT Subjective Patient Comments Patient Comments Pt reports low back pain today . She has been trying to ride her bike more on level 8-9. She has not been using her 4ww in public due to its weight. PT-OP-D Balance Start: 02/12/23 16:06 Freq: Status: Active Protocol: Document 10/30/23 13:33 AM (Rec: 03/29/23 14:18 AM [id number]) Camacho Balance Assessment Evaluation Sitting to Standing Ability Independent w/out Hands Unsupported Stance Safely- 2 minutes Sitting Unsupported, Feet on Floor Safely- 2 minutes Standing to Sitting Ability Safely, Minimal Hand Use Transfer Ability Safely, Minimal Hand Use Unsupported Stance- Eyes Closed Supervision, 10 seconds Unsupported Stance- Eyes Open Supervision to maintain Reaching Forward Standing Confidently, 10 inches Pick- Up Object From Floor Independent/Safe Look Behind Shoulder - Standing Shifts Weight Well Turning 360 Degrees Turns , < 4 secs Unsupported Stance, Alternating Feet on (I)- 8 Steps in > 20 secs Stair Unsupported Tandem Stance Small Step- 30 seconds Unilateral Leg Stance Lifts Leg/Unable to Hold Total Score Camacho Total Score (out of 56 points) 47 PT-OP-E Functional Tests Start: 02/12/23 16:06 Freq: Status: Active Protocol: Document 03/29/23 13:33 AM (Rec: 03/29/23 14:18 AM [id number]) Functional Tests Five Times Sit to Stand Test Score 18.7 Comments 20 in height PT-OP-G Mobility & Gait Start: 02/12/23 16:06 Freq: Status: Active Protocol: Document 02/25/23 13:31 AM (Rec: 02/25/23 14:18 AM [id number]) OP Gait Assessment Gait Gait Assistance Required: Independent Gait Deviations General Gait Pattern Antalgic Factors Limiting Gait Function Factors Limiting Gait Function Decreased Strength,Pain,Poor Balance Comments Gait Comments Pt ambulates with unilateral trekking pole. PT-OP-J Posture/Palpation/Skin Start: 02/12/23 16:06 Freq: Status: Active Protocol: Document 02/12/23 16:07 AM (Rec: 02/12/23 17:26 AM [id number]) Posture Evaluation Position Standing L-Spine Posture Flexed Pelvis Posture Anteriorly Tilted PT-OP-M Strength Start: 02/12/23 16:06 Freq: Status: Active Protocol: Document 02/12/23 16:07 AM (Rec: 02/12/23 17:26 AM [id number]) Hip Strength Hip Manual Muscle Testing Left Flexion (L2) 4- Good- Abduction 4- Good- Adduction 4- Good- Right Flexion (L2) 4- Good- Abduction 4- Good- Adduction 4- Good- Knee Strength Knee Manual Muscle Testing Left Flexion (S2) 4- Good- Extension (L3) 3+ Fair+ Right Flexion (S2) 4- Good- Extension (L3) 4- Good- Ankle/Foot Strength Ankle and Foot Manual Muscle Testing Left Dorsiflexion (L4) 4- Good- Plantarflexion (S1) 4- Good- Right Dorsiflexion (L4) 4- Good- Plantarflexion (S1) 4- Good- PT-OP-Q Treatments Start: 02/12/23 16:06 Freq: Status: Active Protocol: Document 06/25/23 10:32 NM (Rec: 06/25/23 11:31 NM [id number]) Gym Equipment Shuttle Recovery Unilateral Squats Details tactile cue to prevent LLE hyperext Resistance 62# (2 navy) Shuttle Recovery Platform Stable Reps/Time 1x10 Bilateral Heel Raises Details tactile cues not to hyperext LLE Resistance 75# (3 navy) Shuttle Recovery Platform Stable Reps/Time 2x20 - heel and toe raises Bilateral Squats Resistance 75# (3 navy) Shuttle Recovery Platform Stable Reps/Time 2x20 Gait Training Gait Activity 4WW Description obstacles, stop/go, head turns /nods, outside Device Used 4WW Level of Assistance IND Surface stable Distance/Duration 500 ft Treatment Focus nml gait, endurance, stability , obstacles, dynamic gait Comments Pt demos improved stability with 4WW vs walking stick. Slight stagger and deviation from straight path with head turns, stop/go/turn on command 6 MWT Device Used 4WW Level of Assistance IND Surface stable Distance/Duration 948 ft Treatment Focus endurance, nml gait, safety with AD Comments improved soft L knee and level pelvis post cues for proximal and light UE contact on 4WW. Better stability with 4ww than trekking stick Neuro Re-Education Treatment Balance Activities hurdles Details fwd Surface PRN posterior R hand contact during L stance time RLE advancment Equipment 6- 6 hurdles, // bars, Gait Belt Reps/Duration 6x 10ft, 3 sets Comments Single leg btwn hurdles, alternating. Cues for slower stepping to allow balance vs use of momentum fwd, scap retraction, core fac, step to stable, reciprocal stepping challenge LLE stance time. Tandem Details for time Surface stable Equipment no UE support, close SBA with gait belt Reps/Duration 2x30 Comments Able to achieve position with difficulty and trunk lean but no LOB; RLE less difficult than LLE. Min trunk sway in stance, but LE sway; Use of ankle strategy to stabilize PT-OP-R Modalities Start: 02/12/23 16:06 Freq: Status: Active Protocol: Document 06/01/23 13:46 NBM (Rec: 06/01/23 15:57 NBM [id number]) Hot Pack/Cold Pack Treatment Hot Pack Location lumbar Patient Position Hooklying Treatment Duration (minutes) 15 Patient Tolerance Good PT-OP-T Assessment and Plan Start: 02/12/23 16:06 Freq: Status: Active Protocol: Document 06/25/23 10:32 NM (Rec: 06/25/23 11:31 NM [id number]) Physical Therapy Assessment Goals Tandem stance Impairment Balance Impairment Pt able to hold tandem stance for 10 seconds, requiring use of hands to achieve position. Short Term Goal (STG) Pt able to hold tandem stance bilaterally for 16 seconds. 03/04/23: Goal progressing. Pt able to hold for 15 seconds bilaterally. STG Duration 03/04/23 Prison Goal (LTG) Pt able to hold tandem stance for 25 seconds bilaterally. 06/25/23: able to achieve tandem for 30 sec BLE, difficult but able to achieve position IND 06/03/23: Pt able to maintain tandem stance for 30 seconds with RLE and semi-tandem stance with LLE for 30 seconds . Continues to demo difficulty with achieving position. 04/26/23: unable to hold 10 sec without LOB 03/26/23: Pt able to hold 15 seconds bilaterally LTG Duration 04/30/23 MET HEP Impairment Pt with limited HEP Steel Buffer Goal (LTG) Pt is independent with HEP PROGRESSING 06/03/23: Pt reports min compliance with HEP LTG Duration 04/30/23 PROGRESSING Balance Impairment Camacho balance Impairment Camacho balance score of 38/56 Short Term Goal (STG) Pt with improved balance with improved Camacho balance score of 43/56. 03/08/23: Camacho balance score of 43/56 STG Duration 03/04/23 (Goal met 03/08/23: 43/ 56) Steel Buffer Goal (LTG) Pt with improved balance with improved Camacho balance score of 48/56 06/03/23: MET, score 48/56. Pt only unable to perform standing on 1 foot and difficulty with maintaining tandem stance 03/26/23: 47/56 Camacho Balance score GOAL NOT MET 04/26/23: 47/56 ( unchanged) LTG Duration 04/30/23 MET Strength Impairment Strength Impairment Pt able to complete 5 STS squats in 34.7 seconds with minimal use of unilateral UE at chair that is 20 inches in height. Short Term Goal (STG) Pt able to complete 5 STS squats in 25 seconds without use of UE at chair that is 20 inches in height. Goal Met: 03/04/23 Pt able to complete in 25 seconds. STG Duration 03/05/23 Steel Buffer Goal (LTG) Pt able to complete 5 STS squats in 18 seconds without use of UE at chair that is 20 inches in height. 06/03/23: 16.76 sec 5x STS squats without UE use from 20 chair 04/26/23: 22 sec 5x STS squats (regression) 03/29/23: Pt able to do 5 STS squats in 19 seconds without UE support. LTG Duration 04/30/23 MET 6MWT Impairment Endurance Impairment Pt able to ambulate 886 ft with unilateral trekking pole in 6 minutes. Short Term Goal (STG) Pt able to ambulate 1000 ft with unilateral trekking pole or LRAD in 6 minutes. 03/04/23. Pt ambulated 804 ft. Pt reports increase in LBP with walking. Goal unmet on 06/03/23: 974 ft with uni trekking pole. Would benefit from more stable AD. 06/11/23: Pt ambulates 1,083 ft w/ 4WW - goal met. STG Duration 03/05/23 - Goal met 06/11/23 Prison Goal (LTG) Pt able to ambulate 1150 ft with unilateral trekking pole or LRAD in 6 minutes. GOAL UNMET 06/03/23: 974 ft with uni trekking pole. Pt would benefit from more stable AD 04/26/23: 874 FT with uni trekking pole Goal unmet on 03/29/23: Pt ambulated 805ft. 06/11/23: Pt ambulates 1,083 ft w/ 4WW. LTG Duration 04/30/23 PROGRESSING Assessment Summary Assessment Pt progressing toward goals regarding balance and gait. Met goal for tandem stance today x30 BLE with no assistance to achieve position , although still difficult. Demos improved trunk control with mild sway, good ankle strategy. Continued BLE posterior chain strengthening for balance and stability during gait. Gait training with 4WW outside over curbs, inclines, sidewalk, and obstacles. Pt is IND using 4ww and demonstrates increased stability using 4ww over 1 trekking pole. Requires moderate cues for use of brakes with stepping up/down curbs and cue for closer 4ww placement with turns/decline. Did not achieve 6 MWT distance goal; however, pt had just performed several resisted exercises on leg press. Pt would benefit from skilled PT for continued progressive BLE strengthening, gait and balance training in order to decrease fall risk and improve pt confidence/stability during community ambulation. Physical Therapy Plan Frequency and Duration Frequency of Treatment 2x/Week Duration of treatment (weeks) 24 Plan of Care Start Date 02/12/23 Plan of Care End Date 07/23/23 Therapeutic Interventions Therapeutic Interventions Balance Training,Coordination Training,Gait Training,Home Exercise Program,Manual Therapy,Neuromuscular Re- education,Patient/Caregiver Education,Self-Care/Home Management,Soft Tissue Mobilization,Taping, Therapeutic Activities, Therapeutic Exercises Modalities Cold Pack/Ice Massage,Hot Packs Next Visit Focus/Plan Next Note Type Treatment Note Next Visit Plan Consider daily exercise log for HEP. Continue POC. POC: Gait training with 4WW ( repeat ~6 MWT for distance at start of session), add inclines/obstacles with/out trek pole/AD. Continue with balance training and BLE strengthening. Update HEP focus on higher level balance and gait (melvin uneven surfaces, inclines, etc ) with and without trek pole. Cont with core and hip strengthening
--- NOTE | 2023-07-02 16:11 | PT.OTN ---
Current Diagnoses Unsteadiness on feet (07/02/23) Other abnormalities of gait and mobility (07/02/23) Weakness (07/02/23) Physical Therapy Treatment Note PT-OP-A Visit Information Start: 02/12/23 16:06 Freq: Status: Active Protocol: Document 07/02/23 10:33 NM (Rec: 07/02/23 11:34 NM [id number]) Out-Patient Physical Therapy Visit Information Visit Information Visit Type Progress Note Visit Note 30 day PN Visit Start Time 10:33 Visit Stop Time 11:15 Visit Number 33 Evaluation Information Evaluation Date 02/12/23 Precautions Precautions LBP, prior fusion PT-OP-B Current Condition Start: 02/12/23 16:06 Freq: Status: Active Protocol: Document 02/25/23 13:31 AM (Rec: 02/25/23 14:17 AM [id number]) Current Condition History of Current Condition Onset Date 2020 Current Complaints weakness, unsteadiness History of Current Condition Pt reports that she would like to improve her balance, strength and endurance. Pt with hx of bilateral TKA. Pt had a fall in Dec 2020 and fractured her L patella. She wore a knee immplizer and had surgery, though continues to have difficulty with knee. Pt reports that she locks knee in standing for stability. Pt reports that she walks with walking stick for community ambulation and no AD with household. Pt denies fall since her fall in 2020. Pt reports that she is able to ambulate 2-3 blocks before need to sit because of knee pain and fatigue. Pt reports that she recently got a recumbent bike and plans to use it daily for 20 min. Prior Treatments and Tests Prior PT for knees, back and balance issues Future Testing and Treatments Planned Pt will see her PCP next week and hoping to get low back x- rays PT-OP-C Subjective Start: 02/12/23 16:06 Freq: Status: Active Protocol: Document 07/02/23 10:33 NM (Rec: 07/02/23 11:34 NM [id number]) OP-PT Subjective Patient Comments Patient Comments Pt reports that she had a good night's sleep. No pain today. She presents get a trek pole. PT-OP-D Balance Start: 02/12/23 16:06 Freq: Status: Active Protocol: Document 03/29/23 13:33 AM (Rec: 03/29/23 14:18 AM [id number]) Camacho Balance Assessment Evaluation Sitting to Standing Ability Independent w/out Hands Unsupported Stance Safely- 2 minutes Sitting Unsupported, Feet on Floor Safely- 2 minutes Standing to Sitting Ability Safely, Minimal Hand Use Transfer Ability Safely, Minimal Hand Use Unsupported Stance- Eyes Closed Supervision, 10 seconds Unsupported Stance- Eyes Open Supervision to maintain Reaching Forward Standing Confidently, 10 inches Pick- Up Object From Floor Independent/Safe Look Behind Shoulder - Standing Shifts Weight Well Turning 360 Degrees Turns , < 4 secs Unsupported Stance, Alternating Feet on (I)- 8 Steps in > 20 secs Stair Unsupported Tandem Stance Small Step- 30 seconds Unilateral Leg Stance Lifts Leg/Unable to Hold Total Score Camacho Total Score (out of 56 points) 47 PT-OP-E Functional Tests Start: 02/12/23 16:06 Freq: Status: Active Protocol: Document 03/29/23 13:33 AM (Rec: 03/29/23 14:18 AM [id number]) Functional Tests Five Times Sit to Stand Test Score 18.7 Comments 20 in height PT-OP-G Mobility & Gait Start: 02/12/23 16:06 Freq: Status: Active Protocol: Document 02/25/23 13:31 AM (Rec: 02/25/23 14:18 AM [id number]) OP Gait Assessment Gait Gait Assistance Required: Independent Gait Deviations General Gait Pattern Antalgic Factors Limiting Gait Function Factors Limiting Gait Function Decreased Strength,Pain,Poor Balance Comments Gait Comments Pt ambulates with unilateral trekking pole. PT-OP-J Posture/Palpation/Skin Start: 02/12/23 16:06 Freq: Status: Active Protocol: Document 02/12/23 16:07 AM (Rec: 02/12/23 17:26 AM [id number]) Posture Evaluation Position Standing L-Spine Posture Flexed Pelvis Posture Anteriorly Tilted PT-OP-M Strength Start: 02/12/23 16:06 Freq: Status: Active Protocol: Document 02/12/23 16:07 AM (Rec: 02/12/23 17:26 AM [id number]) Hip Strength Hip Manual Muscle Testing Left Flexion (L2) 4- Good- Abduction 4- Good- Adduction 4- Good- Right Flexion (L2) 4- Good- Abduction 4- Good- Adduction 4- Good- Knee Strength Knee Manual Muscle Testing Left Flexion (S2) 4- Good- Extension (L3) 3+ Fair+ Right Flexion (S2) 4- Good- Extension (L3) 4- Good- Ankle/Foot Strength Ankle and Foot Manual Muscle Testing Left Dorsiflexion (L4) 4- Good- Plantarflexion (S1) 4- Good- Right Dorsiflexion (L4) 4- Good- Plantarflexion (S1) 4- Good- PT-OP-Q Treatments Start: 02/12/23 16:06 Freq: Status: Active Protocol: Document 07/02/23 10:33 NM (Rec: 07/02/23 11:34 NM [id number]) Therapeutic Exercises Sitting Exercises sit to stand Sitting Exercise Name added to HEP (after meals) Side bilateral Resistance with fwd reach for ant weight shift Equipment Used higher chair Reps/Minutes 2x5 reps Comments cued for ant weight shift; IND from elevated surface, min A if not toe raise Sitting Exercise Name added to HEP (after meals) Side bilateral Resistance AROM with isometric hold Equipment Used chair Reps/Minutes 1x10x3 Comments cued for full ROM heel raise Sitting Exercise Name added to HEP (after meals) Side bilateral Resistance AROM with isometric hold Equipment Used chair Reps/Minutes 1x10x3 hold Comments cued for full ROM Gait Training Gait Activity 6 MWT Device Used 4ww Level of Assistance IND Surface stable Distance/Duration 950 ft Treatment Focus endurance, nml gait, safety with 4ww Comments Uses fwd flexed trunk to decrease low back pain. Demos improved soft L knee and level pelvis post cues for proximal and light UE contact on 4WW. Better stability with 4ww than trekking stick; cued wider turns during gait. Trekking poles Description indoor/outdoor ambulation Device Used unilateral trekking pole RUE Level of Assistance SBA, CGA Surface carpet, tile, pavement, gravel (w/ incline/decline), curb Distance/Duration 400 ft Treatment Focus endurance and gait pattern, sequencing Comments Pt requires no cues for sequencing, but takes several steps before begins correctly executing pattern. Improved control on gravel and during decline, demos slowed gait speed but no LOB or reaching for other surfaces to stabilize Neuro Re-Education Treatment Balance Activities Stepping Surface stable Equipment no UE support, //bars Reps/Duration 1x5 ea Comments 1. Stepping with 1 LE while other LE remains in stance to a colored cone at various location with specified LE and to specified cone color per PT. CGA to Lucila Pt demos difficulty with maintaining stance, attempting to move stance rather than weight shift with lateral stepping. Better A/P stepping with stance foot remaining 2. Then PT providing 2 color pattern for 1 stepping foot while other LE remaining in stance. CGA to min A to steady , 1 instance LOB with min A to prevent fall Tandem Details for time Surface stable Equipment no UE support, close SBA with gait belt Reps/Duration 2x30 Comments Able to achieve position with difficulty and trunk lean but no LOB; RLE less difficult than LLE. Min trunk sway in stance, but LE sway; Use of ankle strategy to stabilize Step taps Surface stable>unstable Equipment no UE support, //bars; CGA with prn min A to stabilize Comments 4 step with 2 foam pad on top 1. fwd steps, 2x10 alt pattern 2. lateral steps, 1x10 ea Demos slight trunk lean Self-Care/Home Management Treatment Education Patient Education Home Exercise Program Other Education HEP: reviewed past HEP; updated new HEP: sit to stand from elevated surface, seated heel raise, seated toe raise PT-OP-R Modalities Start: 02/12/23 16:06 Freq: Status: Active Protocol: Document 06/01/23 13:46 NBM (Rec: 06/01/23 15:57 NBM [id number]) Hot Pack/Cold Pack Treatment Hot Pack Location lumbar Patient Position Hooklying Treatment Duration (minutes) 15 Patient Tolerance Good PT-OP-T Assessment and Plan Start: 02/12/23 16:06 Freq: Status: Active Protocol: Document 07/02/23 10:33 NM (Rec: 07/02/23 11:34 NM [id number]) Physical Therapy Assessment Goals Tandem stance Impairment Balance Impairment Pt able to hold tandem stance for 10 seconds, requiring use of hands to achieve position. Short Term Goal (STG) Pt able to hold tandem stance bilaterally for 16 seconds. 03/04/23: Goal progressing. Pt able to hold for 15 seconds bilaterally. STG Duration 03/04/23 Drop Wire Operator Goal (LTG) Pt able to hold tandem stance for 25 seconds bilaterally. 06/25/23: able to achieve tandem for 30 sec BLE, difficult but able to achieve position IND 06/03/23: Pt able to maintain tandem stance for 30 seconds with RLE and semi-tandem stance with LLE for 30 seconds . Continues to demo difficulty with achieving position. 04/26/23: unable to hold 10 sec without LOB 03/26/23: Pt able to hold 15 seconds bilaterally LTG Duration 04/30/23 MET HEP Impairment Pt with limited HEP Residential Goal (LTG) Pt is independent with HEP 07/02/23: reports HEP every day 06/03/23: Pt reports min compliance with HEP LTG Duration 04/30/23 MET Balance Impairment Camacho balance Impairment Camacho balance score of 38/56 Short Term Goal (STG) Pt with improved balance with improved Camacho balance score of 43/56. 03/08/23: Camacho balance score of 43/56 STG Duration 03/04/23 (Goal met 03/08/23: 43/ 56) Residential Goal (LTG) Pt with improved balance with improved Camacho balance score of 48/56 06/03/23: MET, score 48/56. Pt only unable to perform standing on 1 foot and difficulty with maintaining tandem stance 03/26/23: 47/56 Camacho Balance score GOAL NOT MET 04/26/23: 47/56 ( unchanged) LTG Duration 04/30/23 MET Strength Impairment Strength Impairment Pt able to complete 5 STS squats in 34.7 seconds with minimal use of unilateral UE at chair that is 20 inches in height. Short Term Goal (STG) Pt able to complete 5 STS squats in 25 seconds without use of UE at chair that is 20 inches in height. Goal Met: 03/04/23 Pt able to complete in 25 seconds. STG Duration 03/05/23 Residential Goal (LTG) Pt able to complete 5 STS squats in 18 seconds without use of UE at chair that is 20 inches in height. 06/03/23: 16.76 sec 5x STS squats without UE use from 20 chair 04/26/23: 22 sec 5x STS squats (regression) 03/29/23: Pt able to do 5 STS squats in 19 seconds without UE support. LTG Duration 04/30/23 MET 6MWT Impairment Endurance Impairment Pt able to ambulate 886 ft with unilateral trekking pole in 6 minutes. Short Term Goal (STG) Pt able to ambulate 1000 ft with unilateral trekking pole or LRAD in 6 minutes. 03/04/23. Pt ambulated 804 ft. Pt reports increase in LBP with walking. Goal unmet on 06/03/23: 974 ft with uni trekking pole. Would benefit from more stable AD. 06/11/23: Pt ambulates 1,083 ft w/ 4WW - goal met. STG Duration 03/05/23 - Goal met 06/11/23 Residential Goal (LTG) Pt able to ambulate 1150 ft with unilateral trekking pole or LRAD in 6 minutes. GOAL UNMET 06/03/23: 974 ft with uni trekking pole. Pt would benefit from more stable AD 04/26/23: 874 FT with uni trekking pole Goal unmet on 03/29/23: Pt ambulated 805ft. 06/11/23: Pt ambulates 1,083 ft w/ 4WW. 06/29/23: 1042 ft with 4ww LTG Duration 04/30/23 PROGRESSING Progress Towards Goals Progress Towards Goals Progressing Toward Goals,Goals Met Progress Comments Progressing toward 6 MWT distance goal Assessment Summary Assessment Pt demos improvement in coordination of single trekking pole during gait on unstable surface without cueing. Also demos improved, slower gait with better upright trunk control during decline on gravel. Pt ambulated with 4ww x950 ft during 6 MWT. Initiated stepping activities without UE support with dual tasking to further challenge balance and promote improved stepping pattern. Pt requires cues for correct execution, tends to step with stance LE as well to stabilize rather than weight shift. One instance of min A to prevent fall when pt had LOB. Updated HEP with functional activities. Pt is progressing toward final goals in preparation for discharge. She has not met 6 MWT distance yet, but she continues to demonstrate improved coordination with trekking pole and stability during gait with 4ww. She also consistently is able to ambulate further with 4ww than trek pole. Pt is progressing with BLE strengthening. While she has functional strength for ADLs, pt would benefit from further BLE strengthening to address limitations in pt' s stability and balance. Pt would benefit from skilled PT for progressive BLE strengthening, gait and functional balance training in order to improve stability during community ambulation, decrease fall risk, and improve activity tolerance. Physical Therapy Plan Frequency and Duration Frequency of Treatment 2x/Week Duration of treatment (weeks) 24 Plan of Care Start Date 02/12/23 Plan of Care End Date 07/23/23 Therapeutic Interventions Therapeutic Interventions Balance Training,Coordination Training,Gait Training,Home Exercise Program,Manual Therapy,Neuromuscular Re- education,Patient/Caregiver Education,Self-Care/Home Management,Soft Tissue Mobilization,Taping, Therapeutic Activities, Therapeutic Exercises Modalities Cold Pack/Ice Massage,Hot Packs Next Visit Focus/Plan Next Note Type Treatment Note Next Visit Plan Consider daily exercise log for HEP. Continue POC. Add more stepping and dynamic activities to improve reaction time and stability techniques POC: Gait training with 4WW ( repeat ~6 MWT for distance at start of session), add inclines/obstacles with/out trek pole/AD. Continue with balance training and BLE strengthening. Update HEP focus on higher level balance and gait (melvin uneven surfaces, inclines, etc ) with and without trek pole. Cont with core and hip strengthening
--- NOTE | 2023-07-06 14:30 | PT.OTN ---
Current Diagnoses Unsteadiness on feet (07/06/23) Other abnormalities of gait and mobility (07/06/23) Weakness (07/06/23) Physical Therapy Treatment Note PT-OP-A Visit Information Start: 02/12/23 16:06 Freq: Status: Active Protocol: Document 07/06/23 13:50 SP (Rec: 07/06/23 14:33 SP [id number]) Out-Patient Physical Therapy Visit Information Visit Information Visit Type Treatment Note Visit Note 30 day PN Visit Start Time 13:50 Visit Stop Time 14:30 Visit Number 34 Number of [employer] Visits 1 PT-OP-B Current Condition Start: 02/12/23 16:06 Freq: Status: Active Protocol: Document 02/25/23 13:31 AM (Rec: 02/25/23 14:17 AM [id number]) Current Condition History of Current Condition Onset Date 2020 Current Complaints weakness, unsteadiness History of Current Condition Pt reports that she would like to improve her balance, strength and endurance. Pt with hx of bilateral TKA. Pt had a fall in Dec 2020 and fractured her L patella. She wore a knee immplizer and had surgery, though continues to have difficulty with knee. Pt reports that she locks knee in standing for stability. Pt reports that she walks with walking stick for community ambulation and no AD with household. Pt denies fall since her fall in 2020. Pt reports that she is able to ambulate 2-3 blocks before need to sit because of knee pain and fatigue. Pt reports that she recently got a recumbent bike and plans to use it daily for 20 min. Prior Treatments and Tests Prior PT for knees, back and balance issues Future Testing and Treatments Planned Pt will see her PCP next week and hoping to get low back x- rays PT-OP-C Subjective Start: 02/12/23 16:06 Freq: Status: Active Protocol: Document 07/06/23 13:50 SP (Rec: 07/07/23 16:32 SP [id number]) OP-PT Subjective Patient Comments Patient Comments I am doing ok, no pain, trying to walk without L knee locking. Arrives with trek pole in RUE. PT-OP-D Balance Start: 02/12/23 16:06 Freq: Status: Active Protocol: Document 03/29/23 13:33 AM (Rec: 03/29/23 14:18 AM [id number]) Camacho Balance Assessment Evaluation Sitting to Standing Ability Independent w/out Hands Unsupported Stance Safely- 2 minutes Sitting Unsupported, Feet on Floor Safely- 2 minutes Standing to Sitting Ability Safely, Minimal Hand Use Transfer Ability Safely, Minimal Hand Use Unsupported Stance- Eyes Closed Supervision, 10 seconds Unsupported Stance- Eyes Open Supervision to maintain Reaching Forward Standing Confidently, 10 inches Pick- Up Object From Floor Independent/Safe Look Behind Shoulder - Standing Shifts Weight Well Turning 360 Degrees Turns , < 4 secs Unsupported Stance, Alternating Feet on (I)- 8 Steps in > 20 secs Stair Unsupported Tandem Stance Small Step- 30 seconds Unilateral Leg Stance Lifts Leg/Unable to Hold Total Score Camacho Total Score (out of 56 points) 47 PT-OP-E Functional Tests Start: 02/12/23 16:06 Freq: Status: Active Protocol: Document 03/29/23 13:33 AM (Rec: 03/29/23 14:18 AM [id number]) Functional Tests Five Times Sit to Stand Test Score 18.7 Comments 20 in height PT-OP-G Mobility & Gait Start: 02/12/23 16:06 Freq: Status: Active Protocol: Document 02/25/23 13:31 AM (Rec: 02/25/23 14:18 AM [id number]) OP Gait Assessment Gait Gait Assistance Required: Independent Gait Deviations General Gait Pattern Antalgic Factors Limiting Gait Function Factors Limiting Gait Function Decreased Strength,Pain,Poor Balance Comments Gait Comments Pt ambulates with unilateral trekking pole. PT-OP-J Posture/Palpation/Skin Start: 02/12/23 16:06 Freq: Status: Active Protocol: Document 02/12/23 16:07 AM (Rec: 02/12/23 17:26 AM [id number]) Posture Evaluation Position Standing L-Spine Posture Flexed Pelvis Posture Anteriorly Tilted PT-OP-M Strength Start: 02/12/23 16:06 Freq: Status: Active Protocol: Document 02/12/23 16:07 AM (Rec: 02/12/23 17:26 AM [id number]) Hip Strength Hip Manual Muscle Testing Left Flexion (L2) 4- Good- Abduction 4- Good- Adduction 4- Good- Right Flexion (L2) 4- Good- Abduction 4- Good- Adduction 4- Good- Knee Strength Knee Manual Muscle Testing Left Flexion (S2) 4- Good- Extension (L3) 3+ Fair+ Right Flexion (S2) 4- Good- Extension (L3) 4- Good- Ankle/Foot Strength Ankle and Foot Manual Muscle Testing Left Dorsiflexion (L4) 4- Good- Plantarflexion (S1) 4- Good- Right Dorsiflexion (L4) 4- Good- Plantarflexion (S1) 4- Good- PT-OP-Q Treatments Start: 02/12/23 16:06 Freq: Status: Active Protocol: Document 07/06/23 13:50 SP (Rec: 07/06/23 14:33 SP [id number]) Therapeutic Exercises Sitting Exercises sit to stand Sitting Exercise Name Reviewed HEP (after meals- use flowsheet) Side bilateral Resistance with fwd reach for ant weight shift Equipment Used chair + black foam (approx 20 ) Reps/Minutes 9 reps before unable come stand Comments cued for ant weight shift; IND toe raise Sitting Exercise Name Reviewed HEP (after meals- use flowsheet) Side bilateral Resistance AROM with isometric hold Equipment Used chair Reps/Minutes 1x10x3 Comments cued for full ROM heel raise Sitting Exercise Name Reviewed HEP (after meals- use flowsheet) Side bilateral Resistance AROM with isometric hold Equipment Used chair Reps/Minutes 1x10x3 hold Comments cued for full ROM Standing Exercises step down Resistance TB #2 posterior L knee Equipment Used 6>4> 2 step, heavy BUE on / /bars Reps/Minutes 4 min total Comments cued slow eccentric knee flexion on L, challenge to control L knee buckling Calf raise Standing Exercise Name Calf raise and toe raise Equipment Used light contact 1 UE Reps/Minutes x10 reps each repetitive Comments cued tall head to ceiling, weakness HR,cued no wt shift retro TR Gait Training Gait Activity stairs Description 6>4 training stairs Device Used gait belt Level of Assistance 1 HR> 2-finger touch ascend, Mod BUE on HR descend Distance/Duration 4 x4 steps Treatment Focus decrease UE support, increase LE weightbearing Comments CG-Min A support trunk and light 2 finger support on R HR as needed with Max cues for scap engagement, L soft knee positioning ascend prevent buckling, descending slow L knee eccentric flexion required Mod BUE support on rails 4 stairs, due to L>R knee flexion weakness Trekking poles Description indoor ambulation Device Used unilateral [place] [employer]ers[place] pole RUE Level of Assistance SBA, CGA Surface carpet, tile, pavement, gravel (w/ incline/decline), curb Distance/Duration 340 ft, across gym x2 laps Treatment Focus endurance and gait pattern, sequencing Comments Pt requires no cues for sequencing. cues for L soft knee and heel strike R>L LE. improved more level pelvis end tx. Neuro Re-Education Treatment Balance Activities Stepping Surface stable Equipment no UE support, //bars Reps/Duration 7 min total Comments 1. Stepping with 1 LE while other LE remains in stance to a colored cone at various location with specified LE and to specified cone color per PT. CGA to Lucila Pt demos difficulty with maintaining stance, attempting to move stance rather than weight shift with lateral stepping. Better A/P stepping with stance foot remaining 2. Then PT providing 2 color pattern for 1 stepping foot while other LE remaining in stance. CGA to min A to steady , 3 instance LOB LLE SLS time with min A to prevent fall to R also support RUE on //bar -cued rhomboid engagement assist tall posturing Tandem Details for time Surface stable Equipment no UE support, close SBA with gait belt Reps/Duration 2x30 Comments Able to achieve position with difficulty and trunk lean but no LOB; RLE less difficult than LLE. Min trunk sway in stance, but LE sway; Use of ankle strategy to stabilize -RLE fwd 29 sec LOB L but sway 1/2 time self posturing recovery. -LLE fwd 60, slight sway and TKE soft self knee corrections . PT-OP-R Modalities Start: 02/12/23 16:06 Freq: Status: Active Protocol: Document 06/01/23 13:46 NBM (Rec: 06/01/23 15:57 NBM [id number]) Hot Pack/Cold Pack Treatment Hot Pack Location lumbar Patient Position Hooklying Treatment Duration (minutes) 15 Patient Tolerance Good PT-OP-T Assessment and Plan Start: 02/12/23 16:06 Freq: Status: Active Protocol: Document 07/06/23 13:50 SP (Rec: 07/06/23 14:33 SP [id number]) Physical Therapy Assessment Goals Tandem stance Impairment Balance Impairment Pt able to hold tandem stance for 10 seconds, requiring use of hands to achieve position. Short Term Goal (STG) Pt able to hold tandem stance bilaterally for 16 seconds. 10/5/23: Goal progressing. Pt able to hold for 15 seconds bilaterally. STG Duration 03/04/23 Intermediate Goal (LTG) Pt able to hold tandem stance for 25 seconds bilaterally. 06/25/23: able to achieve tandem for 30 sec BLE, difficult but able to achieve position IND 06/03/23: Pt able to maintain tandem stance for 30 seconds with RLE and semi-tandem stance with LLE for 30 seconds . Continues to demo difficulty with achieving position. 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 03/08/23: Camacho balance score of 43/56 STG Duration 03/04/23 (Goal met 03/08/23: 43/ 56) Intermediate Goal (LTG) Pt with improved balance with improved Camacho balance score of 48/56 06/03/23: MET, score 48/56. Pt only unable to perform standing on 1 foot and difficulty with maintaining tandem stance 03/26/23: 47/56 Camacho Balance score GOAL NOT MET 04/26/23: 47/56 ( unchanged) LTG Duration 04/30/23 MET Strength Impairment Strength Impairment Pt able to complete 5 STS squats in 34.7 seconds with minimal use of unilateral UE at chair that is 20 inches in height. Short Term Goal (STG) Pt able to complete 5 STS squats in 25 seconds without use of UE at chair that is 20 inches in height. Goal Met: 03/04/23 Pt able to complete in 25 seconds. STG Duration 03/05/23 Intermediate Goal (LTG) Pt able to complete 5 STS squats in 18 seconds without use of UE at chair that is 20 inches in height. 06/03/23: 16.76 sec 5x STS squats without UE use from 20 chair 04/26/23: 22 sec 5x STS squats (regression) 03/29/23: Pt able to do 5 STS squats in 19 seconds without UE support. LTG Duration 04/30/23 MET 6MWT Impairment Endurance Impairment Pt able to ambulate 886 ft with unilateral trekking pole in 6 minutes. Short Term Goal (STG) Pt able to ambulate 1000 ft with unilateral trekking pole or LRAD in 6 minutes. 03/04/23. Pt ambulated 804 ft. Pt reports increase in LBP with walking. Goal unmet on 06/03/23: 974 ft with uni trekking pole. Would benefit from more stable AD. 06/11/23: Pt ambulates 1,083 ft w/ 4WW - goal met. 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 GOAL UNMET 06/03/23: 974 ft with uni trekking pole. Pt would benefit from more stable AD 04/26/23: 874 FT with uni trekking pole Goal unmet on 03/29/23: Pt ambulated 805ft. 06/11/23: Pt ambulates 1,083 ft w/ 4WW. 06/29/23: 1042 ft with 4ww LTG Duration 04/30/23 PROGRESSING Assessment Summary Assessment Pt improved slower pacing L knee flexion lower height 4 > 2 step during RLE advancement descending step. Added resistance to posterior knee for functional control strengthening with max slow bend. Pt required 50% cuing for L soft knee and slower pacing during gait, improved sequencing trek pole with LLE 100% time and more level pelvis toward even dian but tires at end of distance. Ed for taking stops stand breaks for tiring recovery for community endurance. She is challenged with SLS time, improves with cues slower pacing, elongated posturing step tap cones with reduction in need to immediate put opp LE on floor by 25% today. Physical Therapy Plan Frequency and Duration Frequency of Treatment 2x/Week Duration of treatment (weeks) 24 Plan of Care Start Date 02/12/23 Plan of Care End Date 07/23/23 Therapeutic Interventions Therapeutic Interventions Balance Training,Coordination Training,Gait Training,Home Exercise Program,Manual Therapy,Neuromuscular Re- education,Patient/Caregiver Education,Self-Care/Home Management,Soft Tissue Mobilization,Taping, Therapeutic Activities, Therapeutic Exercises Modalities Cold Pack/Ice Massage,Hot Packs Next Visit Focus/Plan Next Note Type Treatment Note Next Visit Plan Pt will bring in her daily exercise log for practice how to utilize with her HEP. Continue POC. Add more stepping and dynamic activities to improve reaction time and stability techniques POC: Gait training with 4WW ( repeat ~6 MWT for distance at start of session), add inclines/obstacles with/out trek pole/AD. Continue with balance training and BLE strengthening. Update HEP focus on higher level balance and gait (melvin uneven surfaces, inclines, etc ) with and without trek pole. Cont with core and hip strengthening
--- NOTE | 2023-07-08 14:35 | PT.OTN ---
Current Diagnoses Unsteadiness on feet (07/08/23) Other abnormalities of gait and mobility (07/08/23) Weakness (07/08/23) Physical Therapy Treatment Note PT-OP-A Visit Information Start: 02/12/23 16:06 Freq: Status: Active Protocol: Document 07/08/23 13:50 SP (Rec: 07/08/23 14:37 SP [id number]) Out-Patient Physical Therapy Visit Information Visit Information Visit Type Treatment Note Visit Note 30 day PN Visit Start Time 13:50 Visit Stop Time 14:35 Visit Number 35 Number of [employer] Visits 2 Evaluation Information Evaluation Date 02/12/23 Precautions Precautions LBP, prior fusion PT-OP-B Current Condition Start: 02/12/23 16:06 Freq: Status: Active Protocol: Document 02/25/23 13:31 AM (Rec: 02/25/23 14:17 AM [id number]) Current Condition History of Current Condition Onset Date 2020 Current Complaints weakness, unsteadiness History of Current Condition Pt reports that she would like to improve her balance, strength and endurance. Pt with hx of bilateral TKA. Pt had a fall in Dec 2020 and fractured her L patella. She wore a knee immplizer and had surgery, though continues to have difficulty with knee. Pt reports that she locks knee in standing for stability. Pt reports that she walks with walking stick for community ambulation and no AD with household. Pt denies fall since her fall in 2020. Pt reports that she is able to ambulate 2-3 blocks before need to sit because of knee pain and fatigue. Pt reports that she recently got a recumbent bike and plans to use it daily for 20 min. Prior Treatments and Tests Prior PT for knees, back and balance issues Future Testing and Treatments Planned Pt will see her PCP next week and hoping to get low back x- rays PT-OP-C Subjective Start: 02/12/23 16:06 Freq: Status: Active Protocol: Document 07/08/23 13:50 SP (Rec: 07/08/23 14:37 SP [id number]) OP-PT Subjective Patient Comments Patient Comments Pt report little tired after volunteering at [employer], errands and lunch before arrival to PT. She uses trek pole in RUE, consistant advancement with LUE. PT-OP-D Balance Start: 02/12/23 16:06 Freq: Status: Active Protocol: Document 03/29/23 13:33 AM (Rec: 03/29/23 14:18 AM [id number]) Camacho Balance Assessment Evaluation Sitting to Standing Ability Independent w/out Hands Unsupported Stance Safely- 2 minutes Sitting Unsupported, Feet on Floor Safely- 2 minutes Standing to Sitting Ability Safely, Minimal Hand Use Transfer Ability Safely, Minimal Hand Use Unsupported Stance- Eyes Closed Supervision, 10 seconds Unsupported Stance- Eyes Open Supervision to maintain Reaching Forward Standing Confidently, 10 inches Pick- Up Object From Floor Independent/Safe Look Behind Shoulder - Standing Shifts Weight Well Turning 360 Degrees Turns , < 4 secs Unsupported Stance, Alternating Feet on (I)- 8 Steps in > 20 secs Stair Unsupported Tandem Stance Small Step- 30 seconds Unilateral Leg Stance Lifts Leg/Unable to Hold Total Score Camacho Total Score (out of 56 points) 47 PT-OP-E Functional Tests Start: 02/12/23 16:06 Freq: Status: Active Protocol: Document 03/29/23 13:33 AM (Rec: 03/29/23 14:18 AM [id number]) Functional Tests Five Times Sit to Stand Test Score 18.7 Comments 20 in height PT-OP-G Mobility & Gait Start: 02/12/23 16:06 Freq: Status: Active Protocol: Document 02/25/23 13:31 AM (Rec: 02/25/23 14:18 AM [id number]) OP Gait Assessment Gait Gait Assistance Required: Independent Gait Deviations General Gait Pattern Antalgic Factors Limiting Gait Function Factors Limiting Gait Function Decreased Strength,Pain,Poor Balance Comments Gait Comments Pt ambulates with unilateral trekking pole. PT-OP-J Posture/Palpation/Skin Start: 02/12/23 16:06 Freq: Status: Active Protocol: Document 02/12/23 16:07 AM (Rec: 02/12/23 17:26 AM [id number]) Posture Evaluation Position Standing L-Spine Posture Flexed Pelvis Posture Anteriorly Tilted PT-OP-M Strength Start: 02/12/23 16:06 Freq: Status: Active Protocol: Document 02/12/23 16:07 AM (Rec: 02/12/23 17:26 AM [id number]) Hip Strength Hip Manual Muscle Testing Left Flexion (L2) 4- Good- Abduction 4- Good- Adduction 4- Good- Right Flexion (L2) 4- Good- Abduction 4- Good- Adduction 4- Good- Knee Strength Knee Manual Muscle Testing Left Flexion (S2) 4- Good- Extension (L3) 3+ Fair+ Right Flexion (S2) 4- Good- Extension (L3) 4- Good- Ankle/Foot Strength Ankle and Foot Manual Muscle Testing Left Dorsiflexion (L4) 4- Good- Plantarflexion (S1) 4- Good- Right Dorsiflexion (L4) 4- Good- Plantarflexion (S1) 4- Good- PT-OP-Q Treatments Start: 02/12/23 16:06 Freq: Status: Active Protocol: Document 07/08/23 13:50 SP (Rec: 07/08/23 14:37 SP [id number]) Gym Equipment Shuttle Recovery Unilateral Squats Details tactile cue to prevent LLE hyperext Resistance 62# (2 navy) Shuttle Recovery Platform Stable Reps/Time R 2x15; L 2x12 Bilateral Squats Resistance 75# (3 navy)> (87# next tx) Shuttle Recovery Platform Stable Reps/Time 20 reps Therapeutic Exercises Sitting Exercises HS curl Sitting Exercise Name added vs standing shedemonstrated tries to perform home Side left Resistance #4 blue Equipment Used seated in chair Reps/Minutes 2x10 Comments cued eccentric control.- provided hO stretching Sitting Exercise Name B and R/L QL: FF, diagonal Side bilateral Reps/Minutes 5 breath each direction Comments improved back stretch reports Standing Exercises TKE Standing Exercise Name add step down Equipment Used 2 step, heavy opp UE on rail Reps/Minutes 2x10 reps Comments tactile cue eccentric flexion, no locking L knee into ext Calf raise Standing Exercise Name Calf raise and toe raise Equipment Used BUE Min WB on rail, light contact 1 UE Reps/Minutes x10 reps each repetitive Comments cued tall head to ceiling, weakness HR,cued no wt shift retro TR Standing TKE Standing Exercise Name Standing TKE Resistance blue band #4- anchored high post knee- anchored higher on bike Reps/Minutes 10x5 sec Comments cued slower pacing eccentric flexion & no hyperextension/ more slit knee ext Resisted side step Standing Exercise Name lateral side step for HEP review Side bilateral Resistance teal tb around ankles Equipment Used 2 finger support Reps/Minutes 1x10 ft ea direction Comments cues for neutral hip/foot rotation, no knee hyperext Gait Training Gait Activity Trekking poles Description indoor ambulation Device Used unilateral trekking pole RUE Level of Assistance SBA, CGA Surface carpet, tile, pavement, gravel (w/ incline/decline), curb Distance/Duration 340 ft Treatment Focus endurance and gait pattern, sequencing Comments Max cueing required for soft slight L knee flexion mid stance during increase RLE stride with control heel strike and allow LLE into PF heel lift for normalizing gait even dian. PT-OP-R Modalities Start: 02/12/23 16:06 Freq: Status: Active Protocol: Document 06/01/23 13:46 NBM (Rec: 06/01/23 15:57 NBM [id number]) Hot Pack/Cold Pack Treatment Hot Pack Location lumbar Patient Position Hooklying Treatment Duration (minutes) 15 Patient Tolerance Good PT-OP-T Assessment and Plan Start: 02/12/23 16:06 Freq: Status: Active Protocol: Document 07/08/23 13:50 SP (Rec: 07/08/23 14:37 SP [id number]) Physical Therapy Assessment Goals Tandem stance Impairment Balance Impairment Pt able to hold tandem stance for 10 seconds, requiring use of hands to achieve position. Short Term Goal (STG) Pt able to hold tandem stance bilaterally for 16 seconds. 03/04/23: Goal progressing. Pt able to hold for 15 seconds bilaterally. STG Duration 03/04/23 Braille Translator Goal (LTG) Pt able to hold tandem stance for 25 seconds bilaterally. 06/25/23: able to achieve tandem for 30 sec BLE, difficult but able to achieve position IND 06/03/23: Pt able to maintain tandem stance for 30 seconds with RLE and semi-tandem stance with LLE for 30 seconds . Continues to demo difficulty with achieving position. 04/26/23: unable to hold 10 sec without LOB 03/26/23: Pt able to hold 15 seconds bilaterally LTG Duration 04/30/23 MET HEP Impairment Pt with limited HEP Halfway Goal (LTG) Pt is independent with HEP 07/02/23: reports HEP every day 06/03/23: Pt reports min compliance with HEP LTG Duration 04/30/23 MET Balance Impairment Camacho balance Impairment Camacho balance score of 38/56 Short Term Goal (STG) Pt with improved balance with improved Camacho balance score of 43/56. 03/08/23: Camacho balance score of 43/56 STG Duration 03/04/23 (Goal met 03/08/23: 43/ 56) Braille Translator Goal (LTG) Pt with improved balance with improved Camacho balance score of 48/56 06/03/23: MET, score 48/56. Pt only unable to perform standing on 1 foot and difficulty with maintaining tandem stance 03/26/23: 47/56 Camacho Balance score GOAL NOT MET 04/26/23: 47/56 ( unchanged) LTG Duration 04/30/23 MET Strength Impairment Strength Impairment Pt able to complete 5 STS squats in 34.7 seconds with minimal use of unilateral UE at chair that is 20 inches in height. Short Term Goal (STG) Pt able to complete 5 STS squats in 25 seconds without use of UE at chair that is 20 inches in height. Goal Met: 03/04/23 Pt able to complete in 25 seconds. STG Duration 03/05/23 Halfway Goal (LTG) Pt able to complete 5 STS squats in 18 seconds without use of UE at chair that is 20 inches in height. 06/03/23: 16.76 sec 5x STS squats without UE use from 20 chair 04/26/23: 22 sec 5x STS squats (regression) 03/29/23: Pt able to do 5 STS squats in 19 seconds without UE support. LTG Duration 04/30/23 MET 6MWT Impairment Endurance Impairment Pt able to ambulate 886 ft with unilateral trekking pole in 6 minutes. Short Term Goal (STG) Pt able to ambulate 1000 ft with unilateral trekking pole or LRAD in 6 minutes. 03/04/23. Pt ambulated 804 ft. Pt reports increase in LBP with walking. Goal unmet on 06/03/23: 974 ft with uni trekking pole. Would benefit from more stable AD. 06/11/23: Pt ambulates 1,083 ft w/ 4WW - goal met. STG Duration 03/05/23 - Goal met 06/11/23 Halfway Goal (LTG) Pt able to ambulate 1150 ft with unilateral trekking pole or LRAD in 6 minutes. GOAL UNMET 06/03/23: 974 ft with uni trekking pole. Pt would benefit from more stable AD 04/26/23: 874 FT with uni trekking pole Goal unmet on 03/29/23: Pt ambulated 805ft. 06/11/23: Pt ambulates 1,083 ft w/ 4WW. 06/29/23: 1042 ft with 4ww LTG Duration 04/30/23 PROGRESSING Assessment Summary Assessment Pt improved L knee slight knee flexion during heel raises and toe raises with mod cues maintain. Challenged with forward step down LLE stance LE on 6>4> 2 step, improved eccentric control into flexion with tactile (anterior /posterior L knee) and MAX VCs AROM to approx 2 deg ext and slower eccentric flexion on 2 step RLE forward step and light R ankle contact LUE to allow L glut med/quad engagement. Max cueing required for soft slight L knee flexion mid stance during increase RLE stride with control heel strike and allow LLE into PF heel lift for normalizing gait even dian. She is able to perform 30% of distance gait today. Physical Therapy Plan Frequency and Duration Frequency of Treatment 2x/Week Duration of treatment (weeks) 24 Plan of Care Start Date 02/12/23 Plan of Care End Date 07/23/23 Therapeutic Interventions Therapeutic Interventions Balance Training,Coordination Training,Gait Training,Home Exercise Program,Manual Therapy,Neuromuscular Re- education,Patient/Caregiver Education,Self-Care/Home Management,Soft Tissue Mobilization,Taping, Therapeutic Activities, Therapeutic Exercises Modalities Cold Pack/Ice Massage,Hot Packs Next Visit Focus/Plan Next Note Type Treatment Note Next Visit Plan Pt will bring in her daily exercise log for practice how to utilize with her HEP. Continue POC. Add more stepping and dynamic activities to improve reaction time and stability techniques POC: Gait training with 4WW ( repeat ~6 MWT for distance at start of session), add inclines/obstacles with/out trek pole/AD. Continue with balance training and BLE strengthening. Update HEP focus on higher level balance and gait (melvin uneven surfaces, inclines, etc ) with and without trek pole. Cont with core and hip strengthening
--- NOTE | 2023-07-14 11:47 | PT.OTN ---
Current Diagnoses Unsteadiness on feet (07/14/23) Other abnormalities of gait and mobility (07/14/23) Weakness (07/14/23) Physical Therapy Treatment Note PT-OP-A Visit Information Start: 02/12/23 16:06 Freq: Status: Active Protocol: Document 07/14/23 09:05 NM (Rec: 07/14/23 09:47 NM [id number]) Out-Patient Physical Therapy Visit Information Visit Information Visit Type Treatment Note Visit Start Time 09:03 Visit Stop Time 09:42 Visit Number 36 Evaluation Information Evaluation Date 02/12/23 PT-OP-B Current Condition Start: 02/12/23 16:06 Freq: Status: Active Protocol: Document 02/25/23 13:31 AM (Rec: 02/25/23 14:17 AM [id number]) Current Condition History of Current Condition Onset Date 2020 Current Complaints weakness, unsteadiness History of Current Condition Pt reports that she would like to improve her balance, strength and endurance. Pt with hx of bilateral TKA. Pt had a fall in Dec 2020 and fractured her L patella. She wore a knee immplizer and had surgery, though continues to have difficulty with knee. Pt reports that she locks knee in standing for stability. Pt reports that she walks with walking stick for community ambulation and no AD with household. Pt denies fall since her fall in 2020. Pt reports that she is able to ambulate 2-3 blocks before need to sit because of knee pain and fatigue. Pt reports that she recently got a recumbent bike and plans to use it daily for 20 min. 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 No changes or soreness after last appt. Using trek pole. PT-OP-D Balance Start: 02/12/23 16:06 Freq: Status: Active Protocol: Document 03/29/23 13:33 AM (Rec: 03/29/23 14:18 AM [id number]) Camacho Balance Assessment Evaluation Sitting to Standing Ability Independent w/out Hands Unsupported Stance Safely- 2 minutes Sitting Unsupported, Feet on Floor Safely- 2 minutes Standing to Sitting Ability Safely, Minimal Hand Use Transfer Ability Safely, Minimal Hand Use Unsupported Stance- Eyes Closed Supervision, 10 seconds Unsupported Stance- Eyes Open Supervision to maintain Reaching Forward Standing Confidently, 10 inches Pick- Up Object From Floor Independent/Safe Look Behind Shoulder - Standing Shifts Weight Well Turning 360 Degrees Turns , < 4 secs Unsupported Stance, Alternating Feet on (I)- 8 Steps in > 20 secs Stair Unsupported Tandem Stance Small Step- 30 seconds Unilateral Leg Stance Lifts Leg/Unable to Hold Total Score Camacho Total Score (out of 56 points) 47 PT-OP-E Functional Tests Start: 02/12/23 16:06 Freq: Status: Active Protocol: Document 03/29/23 13:33 AM (Rec: 03/29/23 14:18 AM [id number]) Functional Tests Five Times Sit to Stand Test Score 18.7 Comments 20 in height PT-OP-G Mobility & Gait Start: 02/12/23 16:06 Freq: Status: Active Protocol: Document 02/25/23 13:31 AM (Rec: 02/25/23 14:18 AM [id number]) OP Gait Assessment Gait Gait Assistance Required: Independent Gait Deviations General Gait Pattern Antalgic Factors Limiting Gait Function Factors Limiting Gait Function Decreased Strength,Pain,Poor Balance Comments Gait Comments Pt ambulates with unilateral trekking pole. PT-OP-J Posture/Palpation/Skin Start: 02/12/23 16:06 Freq: Status: Active Protocol: Document 02/12/23 16:07 AM (Rec: 02/12/23 17:26 AM [id number]) Posture Evaluation Position Standing L-Spine Posture Flexed Pelvis Posture Anteriorly Tilted PT-OP-M Strength Start: 02/12/23 16:06 Freq: Status: Active Protocol: Document 02/12/23 16:07 AM (Rec: 02/12/23 17:26 AM [id number]) Hip Strength Hip Manual Muscle Testing Left Flexion (L2) 4- Good- Abduction 4- Good- Adduction 4- Good- Right Flexion (L2) 4- Good- Abduction 4- Good- Adduction 4- Good- Knee Strength Knee Manual Muscle Testing Left Flexion (S2) 4- Good- Extension (L3) 3+ Fair+ Right Flexion (S2) 4- Good- Extension (L3) 4- Good- Ankle/Foot Strength Ankle and Foot Manual Muscle Testing Left Dorsiflexion (L4) 4- Good- Plantarflexion (S1) 4- Good- Right Dorsiflexion (L4) 4- Good- Plantarflexion (S1) 4- Good- PT-OP-Q Treatments Start: 02/12/23 16:06 Freq: Status: Active Protocol: Document 07/14/23 09:05 NM (Rec: 07/14/23 09:47 NM [id number]) Therapeutic Exercises Sitting Exercises glute medius activation Sitting Exercise Name prior to gait with trek pole Side bilateral Resistance [place] tb Equipment Used sitting in chair Reps/Minutes 1x30, 1x10 with 3 hold Comments cued for form, max isometric hold HS curl Side left Resistance #4 blue Equipment Used seated in chair Reps/Minutes 2x10 Comments cued eccentric control stretching Sitting Exercise Name B and R/L QL: FF, diagonal Side bilateral Reps/Minutes 5 breath each direction Comments improved back stretch reports sit to stand Side bilateral Resistance with fwd reach for ant weight shift Equipment Used chair + black foam (approx 20 ) Reps/Minutes 10 reps before fatigue, unable to stand w/o UE support Comments cued for ant weight shift; IND Standing Exercises step down Equipment Used 2 step, heavy opp UE on rail Reps/Minutes 1x10 reps Comments tactile cue eccentric flexion, no locking L knee into ext step-up Side bilateral Equipment Used 6 step, then 2 foam Reps/Minutes 1x10 ea Comments cued for weight shift, soft L knee TKE; requires increased time Calf raise Standing Exercise Name Calf raise and toe raise Side bilateral Equipment Used BUE Min WB on rail, light contact 1 UE Reps/Minutes 2x10 reps each repetitive Comments cued tall head to ceiling, weakness HR,cued no wt shift retro TR Standing TKE Standing Exercise Name Standing TKE Resistance blue band #4- anchored high post knee- anchored higher on bike Reps/Minutes 2x10 with 3 hold Comments cued slower pacing eccentric flexion & no hyperextension/ more slit knee ext Gait Training Gait Activity 6 MWT Device Used 4ww Level of Assistance IND Surface stable Distance/Duration 1077 ft Treatment Focus endurance, nml gait, safety with 4ww Comments Uses fwd flexed trunk to decrease low back pain. Demos improved soft L knee and level pelvis post cues for proximal and light UE contact on 4ww. Better stability with 4ww than trekking stick; cued wider turns during gait. Trekking poles Description indoor ambulation Device Used unilateral trekking pole RUE Surface carpet, tile Distance/Duration 300 ft, various distances around clinic Treatment Focus endurance and gait pattern, sequencing Comments No cues for sequencing of trek pole. Cued for soft slight L knee flex during stance, increased R step length, slower turns for safety. PT-OP-R Modalities Start: 02/12/23 16:06 Freq: Status: Active Protocol: Document 06/01/23 13:46 NBM (Rec: 06/01/23 15:57 NBM [id number]) Hot Pack/Cold Pack Treatment Hot Pack Location lumbar Patient Position Hooklying Treatment Duration (minutes) 15 Patient Tolerance Good PT-OP-T Assessment and Plan Start: 02/12/23 16:06 Freq: Status: Active Protocol: Document 07/14/23 09:05 NM (Rec: 07/14/23 09:47 NM [id number]) Physical Therapy Assessment Goals Tandem stance Impairment Balance Impairment Pt able to hold tandem stance for 10 seconds, requiring use of hands to achieve position. Short Term Goal (STG) Pt able to hold tandem stance bilaterally for 16 seconds. 03/04/23: Goal progressing. Pt able to hold for 15 seconds bilaterally. STG Duration 03/04/23 Electrical Manufacturing Engineer Goal (LTG) Pt able to hold tandem stance for 25 seconds bilaterally. 06/25/23: able to achieve tandem for 30 sec BLE, difficult but able to achieve position IND 06/03/23: Pt able to maintain tandem stance for 30 seconds with RLE and semi-tandem stance with LLE for 30 seconds . Continues to demo difficulty with achieving position. 04/26/23: unable to hold 10 sec without LOB 03/26/23: Pt able to hold 15 seconds bilaterally LTG Duration 04/30/23 MET HEP Impairment Pt with limited HEP Correction Goal (LTG) Pt is independent with HEP 07/02/23: reports HEP every day 06/03/23: Pt reports min compliance with HEP LTG Duration 04/30/23 MET Balance Impairment Camacho balance Impairment Camacho balance score of 38/56 Short Term Goal (STG) Pt with improved balance with improved Camacho balance score of 43/56. 03/08/23: Camacho balance score of 43/56 STG Duration 03/04/23 (Goal met 03/08/23: 43/ 56) Electrical Manufacturing Engineer Goal (LTG) Pt with improved balance with improved Camacho balance score of 48/56 06/03/23: MET, score 48/56. Pt only unable to perform standing on 1 foot and difficulty with maintaining tandem stance 03/26/23: 47/56 Camacho Balance score GOAL NOT MET 04/26/23: 47/56 ( unchanged) LTG Duration 04/30/23 MET Strength Impairment Strength Impairment Pt able to complete 5 STS squats in 34.7 seconds with minimal use of unilateral UE at chair that is 20 inches in height. Short Term Goal (STG) Pt able to complete 5 STS squats in 25 seconds without use of UE at chair that is 20 inches in height. Goal Met: 03/04/23 Pt able to complete in 25 seconds. STG Duration 03/05/23 Electrical Manufacturing Engineer Goal (LTG) Pt able to complete 5 STS squats in 18 seconds without use of UE at chair that is 20 inches in height. 06/03/23: 16.76 sec 5x STS squats without UE use from 20 chair 04/26/23: 22 sec 5x STS squats (regression) 03/29/23: Pt able to do 5 STS squats in 19 seconds without UE support. LTG Duration 04/30/23 MET 6MWT Impairment Endurance Impairment Pt able to ambulate 886 ft with unilateral trekking pole in 6 minutes. Short Term Goal (STG) Pt able to ambulate 1000 ft with unilateral trekking pole or LRAD in 6 minutes. 03/04/23. Pt ambulated 804 ft. Pt reports increase in LBP with walking. Goal unmet on 06/03/23: 974 ft with uni trekking pole. Would benefit from more stable AD. 06/11/23: Pt ambulates 1,083 ft w/ 4WW - goal met. STG Duration 03/05/23 - Goal met 06/11/23 Correction Goal (LTG) Pt able to ambulate 1150 ft with unilateral trekking pole or LRAD in 6 minutes. GOAL UNMET 06/03/23: 974 ft with uni trekking pole. Pt would benefit from more stable AD 04/26/23: 874 FT with uni trekking pole Goal unmet on 03/29/23: Pt ambulated 805ft. 06/11/23: Pt ambulates 1,083 ft w/ 4WW. 06/29/23: 1042 ft with 4ww LTG Duration 04/30/23 PROGRESSING Assessment Summary Assessment Pt with improved pacing and control during exercises. Requires cues to prevent L knee locking into extension with activities. Demos improved TKE using soft knee for quad control over ligamentous control to stabilize. 4WW. During step ups, requires 1 UE assist for balance and support but does not rely on heavily to step up . Continued with step downs with pt demonstrating improved eccentric control. Cued for stable pelvis and weight shift onto stance LE. PT facilitating weight shift at pelvis. Pt would benefit from skilled PT for progressive BLE , core strengthening in addition to gait and balance training in order to decrease fall risk. Physical Therapy Plan Frequency and Duration Frequency of Treatment 2x/Week Duration of treatment (weeks) 24 Plan of Care Start Date 02/12/23 Plan of Care End Date 07/23/23 Therapeutic Interventions Therapeutic Interventions Balance Training,Coordination Training,Gait Training,Home Exercise Program,Manual Therapy,Neuromuscular Re- education,Patient/Caregiver Education,Self-Care/Home Management,Soft Tissue Mobilization,Taping, Therapeutic Activities, Therapeutic Exercises Modalities Cold Pack/Ice Massage,Hot Packs Next Visit Focus/Plan Next Note Type Treatment Note Next Visit Plan Pt will bring in her daily exercise log for practice how to utilize with her HEP. Continue POC. Add more stepping and dynamic activities to improve reaction time and stability techniques POC: Gait training with 4WW ( repeat ~6 MWT for distance at start of session), add inclines/obstacles with/out trek pole/AD. Continue with balance training and BLE strengthening. Update HEP focus on higher level balance and gait (melvin uneven surfaces, inclines, etc ) with and without trek pole. Cont with core and hip strengthening
--- NOTE | 2023-07-16 11:34 | PT.OTN ---
Current Diagnoses Unsteadiness on feet (07/16/23) Other abnormalities of gait and mobility (07/16/23) Weakness (07/16/23) Physical Therapy Treatment Note PT-OP-A Visit Information Start: 02/12/23 16:06 Freq: Status: Active Protocol: Document 07/16/23 10:37 NM (Rec: 07/16/23 11:34 NM [id number]) Out-Patient Physical Therapy Visit Information Visit Information Visit Type Treatment Note Visit Start Time 10:35 Visit Stop Time 11:15 Visit Number 37 Evaluation Information Evaluation Date 02/12/23 Precautions Precautions LBP, prior fusion PT-OP-B Current Condition Start: 02/12/23 16:06 Freq: Status: Active Protocol: Document 02/25/23 13:31 AM (Rec: 02/25/23 14:17 AM [id number]) Current Condition History of Current Condition Onset Date 2020 Current Complaints weakness, unsteadiness History of Current Condition Pt reports that she would like to improve her balance, strength and endurance. Pt with hx of bilateral TKA. Pt had a fall in Dec 2020 and fractured her L patella. She wore a knee immplizer and had surgery, though continues to have difficulty with knee. Pt reports that she locks knee in standing for stability. Pt reports that she walks with walking stick for community ambulation and no AD with household. Pt denies fall since her fall in 2020. Pt reports that she is able to ambulate 2-3 blocks before need to sit because of knee pain and fatigue. Pt reports that she recently got a recumbent bike and plans to use it daily for 20 min. Prior Treatments and Tests Prior PT for knees, back and balance issues Future Testing and Treatments Planned Pt will see her PCP next week and hoping to get low back x- rays PT-OP-C Subjective Start: 02/12/23 16:06 Freq: Status: Active Protocol: Document 07/16/23 10:37 NM (Rec: 07/16/23 11:34 NM [id number]) OP-PT Subjective Patient Comments Patient Comments Pt reports she is doing well but her low back is hurting after she worked at the [employer] yesterday. It's better today but still a little sore. She has been compliant with HEP and wants to have print out of former exercises for upcoming d/c PT-OP-D Balance Start: 02/12/23 16:06 Freq: Status: Active Protocol: Document 03/29/23 13:33 AM (Rec: 03/29/23 14:18 AM [id number]) Camacho Balance Assessment Evaluation Sitting to Standing Ability Independent w/out Hands Unsupported Stance Safely- 2 minutes Sitting Unsupported, Feet on Floor Safely- 2 minutes Standing to Sitting Ability Safely, Minimal Hand Use Transfer Ability Safely, Minimal Hand Use Unsupported Stance- Eyes Closed Supervision, 10 seconds Unsupported Stance- Eyes Open Supervision to maintain Reaching Forward Standing Confidently, 10 inches Pick- Up Object From Floor Independent/Safe Look Behind Shoulder - Standing Shifts Weight Well Turning 360 Degrees Turns , < 4 secs Unsupported Stance, Alternating Feet on (I)- 8 Steps in > 20 secs Stair Unsupported Tandem Stance Small Step- 30 seconds Unilateral Leg Stance Lifts Leg/Unable to Hold Total Score Camacho Total Score (out of 56 points) 47 PT-OP-E Functional Tests Start: 02/12/23 16:06 Freq: Status: Active Protocol: Document 03/29/23 13:33 AM (Rec: 03/29/23 14:18 AM [id number]) Functional Tests Five Times Sit to Stand Test Score 18.7 Comments 20 in height PT-OP-G Mobility & Gait Start: 02/12/23 16:06 Freq: Status: Active Protocol: Document 02/25/23 13:31 AM (Rec: 02/25/23 14:18 AM [id number]) OP Gait Assessment Gait Gait Assistance Required: Independent Gait Deviations General Gait Pattern Antalgic Factors Limiting Gait Function Factors Limiting Gait Function Decreased Strength,Pain,Poor Balance Comments Gait Comments Pt ambulates with unilateral trekking pole. PT-OP-J Posture/Palpation/Skin Start: 02/12/23 16:06 Freq: Status: Active Protocol: Document 02/12/23 16:07 AM (Rec: 02/12/23 17:26 AM [id number]) Posture Evaluation Position Standing L-Spine Posture Flexed Pelvis Posture Anteriorly Tilted PT-OP-M Strength Start: 02/12/23 16:06 Freq: Status: Active Protocol: Document 02/12/23 16:07 AM (Rec: 02/12/23 17:26 AM [id number]) Hip Strength Hip Manual Muscle Testing Left Flexion (L2) 4- Good- Abduction 4- Good- Adduction 4- Good- Right Flexion (L2) 4- Good- Abduction 4- Good- Adduction 4- Good- Knee Strength Knee Manual Muscle Testing Left Flexion (S2) 4- Good- Extension (L3) 3+ Fair+ Right Flexion (S2) 4- Good- Extension (L3) 4- Good- Ankle/Foot Strength Ankle and Foot Manual Muscle Testing Left Dorsiflexion (L4) 4- Good- Plantarflexion (S1) 4- Good- Right Dorsiflexion (L4) 4- Good- Plantarflexion (S1) 4- Good- PT-OP-Q Treatments Start: 02/12/23 16:06 Freq: Status: Active Protocol: Document 07/16/23 10:37 NM (Rec: 07/16/23 11:34 NM [id number]) Therapeutic Exercises Sitting Exercises LAQ Side bilateral Resistance 4# ankle weight Reps/Minutes 2x10 ea Comments cued upright trunk posture hip abduction Side bilateral Resistance lvl 2 resistance band Reps/Minutes 3x10 Comments cued to prevent trunk lean glute medius activation Side bilateral Resistance lvl 2 resistance band Reps/Minutes 1x60 Comments max isometric hold HS curl Sitting Exercise Name standing today Side bilateral Resistance 4# ankle wt Reps/Minutes 2x10 Comments kick your butt sit to stand Side bilateral Resistance with fwd reach for ant weight shift Equipment Used plinth Reps/Minutes 1x10 from lower ht, 1x10 from elevated ht Comments improved ant weight shift, upright posture toe raise Sitting Exercise Name reviewed for HEP heel raise Sitting Exercise Name reviewed for HEP Standing Exercises marching Side bilateral Resistance 4# ankle weights Equipment Used w/o hand support, 1x5 w hand support for HEP Reps/Minutes 3x10 Comments close SBA, hands hovering over step-up Side bilateral Resistance 4# ankle weights Equipment Used 4, 1 R hand rail assist for balance Reps/Minutes 1x10 ea Comments cued for weight shift, soft L knee TKE; requires increased time Calf raise Standing Exercise Name Calf raise and toe raise Side bilateral Resistance 4# ankle weights Equipment Used BUE Min WB on rail, light contact 1 UE Reps/Minutes 2x10 reps each repetitive Comments cued tall head to ceiling, weakness HR,cued no wt shift retro TR 3-way hip Standing Exercise Name review for HEP but did not perform Gait Training Gait Activity 4WW Description 4# ankle weights Device Used 4WW Level of Assistance close SBA Surface stable Distance/Duration 500 ft Treatment Focus nml gait, endurance, stability , foot clearance Comments Improved foot clearance with external cues (4# weights) on ankles. Demos improved stability with 4ww. Slower gait speed, but no increased trunk or hip sway. Cued soft L knee to limit hyperext Trekking poles Description indoor ambulation, 4# ankle weights Device Used unilateral trekking pole RUE Level of Assistance close SBA Surface carpet, tile Distance/Duration 400 ft Treatment Focus endurance and gait pattern, sequencing Comments No cues for sequencing of trek pole. Cued for soft slight L knee flex during stance, increased R step length, slower turns for safety. Improved foot clearance and slower gait with 4# ankle weights (external target), decreased trunk sway due to slower gait. Slower turns demonstrated as well with fewer lateral leans Self-Care/Home Management Treatment Education Patient Education Home Exercise Program,Safety Other Education 5 minutes-HEP: seated clams, STS 5x at meals, LAQ, standing july w UE support, standing HSC with UE support, standing heel raises, seated toe raises . Instructed that can perform seated HSC or heel raises per tolerance. Educated on UE support at stable surface (e.g . counter) for safety. Pt verbalizes understanding PT-OP-R Modalities Start: 02/12/23 16:06 Freq: Status: Active Protocol: Document 06/01/23 13:46 NBM (Rec: 06/01/23 15:57 NBM [id number]) Hot Pack/Cold Pack Treatment Hot Pack Location lumbar Patient Position Hooklying Treatment Duration (minutes) 15 Patient Tolerance Good PT-OP-T Assessment and Plan Start: 02/12/23 16:06 Freq: Status: Active Protocol: Document 07/16/23 10:37 NM (Rec: 07/16/23 11:34 NM [id number]) Physical Therapy Assessment Goals Tandem stance Impairment Balance Impairment Pt able to hold tandem stance for 10 seconds, requiring use of hands to achieve position. Short Term Goal (STG) Pt able to hold tandem stance bilaterally for 16 seconds. 03/04/23: Goal progressing. Pt able to hold for 15 seconds bilaterally. STG Duration 03/04/23 Field Operations Manager Goal (LTG) Pt able to hold tandem stance for 25 seconds bilaterally. 06/25/23: able to achieve tandem for 30 sec BLE, difficult but able to achieve position IND 06/03/23: Pt able to maintain tandem stance for 30 seconds with RLE and semi-tandem stance with LLE for 30 seconds . Continues to demo difficulty with achieving position. 04/26/23: unable to hold 10 sec without LOB 03/26/23: Pt able to hold 15 seconds bilaterally LTG Duration 04/30/23 MET HEP Impairment Pt with limited HEP Field Operations Manager Goal (LTG) Pt is independent with HEP 07/02/23: reports HEP every day 06/03/23: Pt reports min compliance with HEP LTG Duration 04/30/23 MET Balance Impairment Camacho balance Impairment Camacho balance score of 38/56 Short Term Goal (STG) Pt with improved balance with improved Camacho balance score of 43/56. 03/08/23: Camacho balance score of 43/56 STG Duration 03/04/23 (Goal met 03/08/23: 43/ 56) Long-Term Goal (LTG) Pt with improved balance with improved Camacho balance score of 48/56 06/03/23: MET, score 48/56. Pt only unable to perform standing on 1 foot and difficulty with maintaining tandem stance 03/26/23: 47/56 Camacho Balance score GOAL NOT MET 04/26/23: 47/56 ( unchanged) LTG Duration 04/30/23 MET Strength Impairment Strength Impairment Pt able to complete 5 STS squats in 34.7 seconds with minimal use of unilateral UE at chair that is 20 inches in height. Short Term Goal (STG) Pt able to complete 5 STS squats in 25 seconds without use of UE at chair that is 20 inches in height. Goal Met: 03/04/23 Pt able to complete in 25 seconds. STG Duration 03/05/23 Long-Term Goal (LTG) Pt able to complete 5 STS squats in 18 seconds without use of UE at chair that is 20 inches in height. 06/03/23: 16.76 sec 5x STS squats without UE use from 20 chair 04/26/23: 22 sec 5x STS squats (regression) 03/29/23: Pt able to do 5 STS squats in 19 seconds without UE support. LTG Duration 04/30/23 MET 6MWT Impairment Endurance Impairment Pt able to ambulate 886 ft with unilateral trekking pole in 6 minutes. Short Term Goal (STG) Pt able to ambulate 1000 ft with unilateral trekking pole or LRAD in 6 minutes. 03/04/23. Pt ambulated 804 ft. Pt reports increase in LBP with walking. Goal unmet on 06/03/23: 974 ft with uni trekking pole. Would benefit from more stable AD. 06/11/23: Pt ambulates 1,083 ft w/ 4WW - goal met. STG Duration 03/05/23 - Goal met 06/11/23 Long-Term Goal (LTG) Pt able to ambulate 1150 ft with unilateral trekking pole or LRAD in 6 minutes. GOAL UNMET 06/03/23: 974 ft with uni trekking pole. Pt would benefit from more stable AD 04/26/23: 874 FT with uni trekking pole Goal unmet on 03/29/23: Pt ambulated 805ft. 06/11/23: Pt ambulates 1,083 ft w/ 4WW. 06/29/23: 1042 ft with 4ww LTG Duration 04/30/23 PROGRESSING Assessment Summary Assessment Pt demos improved foot clearance and trunk stability during gait with both 4WW and unilateral trek pole. Gait speed is decreased, but pt more aware of surroundings and attempting to stabilize with fewer cues from PT. No cues for sequencing with trek pole. PT and pt reviewed past and present HEP for BLE strengthening as pt planning to discharge soon. Pt requires cues for correct execution, particularly during standing hamstring curls with cues to kick your butt vs perform a march. Progressed to standing march without UE support using 4# ankle weights with no instances of LOB but minimal increase in trunk sway. Pt occasionally demos compensations with trunk lean during LE exercises, but reduced with verbal cues. Pt would benefit from skilled PT for progressive BLE strengthening, balance and gait training in order to reduce fall risk and improve activity tolerance. Physical Therapy Plan Frequency and Duration Frequency of Treatment 2x/Week Duration of treatment (weeks) 24 Plan of Care Start Date 02/12/23 Plan of Care End Date 07/23/23 Therapeutic Interventions Therapeutic Interventions Balance Training,Coordination Training,Gait Training,Home Exercise Program,Manual Therapy,Neuromuscular Re- education,Patient/Caregiver Education,Self-Care/Home Management,Soft Tissue Mobilization,Taping, Therapeutic Activities, Therapeutic Exercises Modalities Cold Pack/Ice Massage,Hot Packs Next Visit Focus/Plan Next Note Type Treatment Note Next Visit Plan Pt will bring in her daily exercise log for practice how to utilize with her HEP. Continue POC. Add more stepping and dynamic activities to improve reaction time and stability techniques POC: Gait training with 4WW ( repeat ~6 MWT for distance at start of session), add inclines/obstacles with/out trek pole/AD. Continue with balance training and BLE strengthening. Update HEP focus on higher level balance and gait (melvin uneven surfaces, inclines, etc ) with and without trek pole. Cont with core and hip strengthening D/c on 07/23
--- NOTE | 2023-07-20 11:42 | PT.OTN ---
Current Diagnoses Unsteadiness on feet (07/20/23) Other abnormalities of gait and mobility (07/20/23) Weakness (07/20/23) Physical Therapy Treatment Note PT-OP-A Visit Information Start: 02/12/23 16:06 Freq: Status: Active Protocol: Document 07/20/23 10:42 NBM (Rec: 07/20/23 11:41 NBM [id number]) Out-Patient Physical Therapy Visit Information Visit Information Visit Type Treatment Note Visit Start Time 10:37 Visit Stop Time 11:26 Visit Number 38 Number of DAMAGED [employer]OR Visits 1 PT-OP-B Current Condition Start: 02/12/23 16:06 Freq: Status: Active Protocol: Document 02/25/23 13:31 AM (Rec: 02/25/23 14:17 AM [id number]) Current Condition History of Current Condition Onset Date 2020 Current Complaints weakness, unsteadiness History of Current Condition Pt reports that she would like to improve her balance, strength and endurance. Pt with hx of bilateral TKA. Pt had a fall in Dec 2020 and fractured her L patella. She wore a knee immplizer and had surgery, though continues to have difficulty with knee. Pt reports that she locks knee in standing for stability. Pt reports that she walks with walking stick for community ambulation and no AD with household. Pt denies fall since her fall in 2020. Pt reports that she is able to ambulate 2-3 blocks before need to sit because of knee pain and fatigue. Pt reports that she recently got a recumbent bike and plans to use it daily for 20 min. Prior Treatments and Tests Prior PT for knees, back and balance issues Future Testing and Treatments Planned Pt will see her PCP next week and hoping to get low back x- rays PT-OP-C Subjective Start: 02/12/23 16:06 Freq: Status: Active Protocol: Document 07/20/23 10:42 NBM (Rec: 07/20/23 11:41 NBM [id number]) OP-PT Subjective Patient Comments Patient Comments Nevaeh reports she's fine today. She didn't sleep well last night. She forgot her daily exercise log and hasn't started using it yet. She has a lightweight walker at home but she wants the same as used in the PT clinic. PT-OP-D Balance Start: 02/12/23 16:06 Freq: Status: Active Protocol: Document 03/29/23 13:33 AM (Rec: 03/29/23 14:18 AM [id number]) Camacho Balance Assessment Evaluation Sitting to Standing Ability Independent w/out Hands Unsupported Stance Safely- 2 minutes Sitting Unsupported, Feet on Floor Safely- 2 minutes Standing to Sitting Ability Safely, Minimal Hand Use Transfer Ability Safely, Minimal Hand Use Unsupported Stance- Eyes Closed Supervision, 10 seconds Unsupported Stance- Eyes Open Supervision to maintain Reaching Forward Standing Confidently, 10 inches Pick- Up Object From Floor Independent/Safe Look Behind Shoulder - Standing Shifts Weight Well Turning 360 Degrees Turns , < 4 secs Unsupported Stance, Alternating Feet on (I)- 8 Steps in > 20 secs Stair Unsupported Tandem Stance Small Step- 30 seconds Unilateral Leg Stance Lifts Leg/Unable to Hold Total Score Camacho Total Score (out of 56 points) 47 PT-OP-E Functional Tests Start: 02/12/23 16:06 Freq: Status: Active Protocol: Document 03/29/23 13:33 AM (Rec: 03/29/23 14:18 AM [id number]) Functional Tests Five Times Sit to Stand Test Score 18.7 Comments 20 in height PT-OP-G Mobility & Gait Start: 02/12/23 16:06 Freq: Status: Active Protocol: Document 02/25/23 13:31 AM (Rec: 02/25/23 14:18 AM [id number]) OP Gait Assessment Gait Gait Assistance Required: Independent Gait Deviations General Gait Pattern Antalgic Factors Limiting Gait Function Factors Limiting Gait Function Decreased Strength,Pain,Poor Balance Comments Gait Comments Pt ambulates with unilateral trekking pole. PT-OP-J Posture/Palpation/Skin Start: 02/12/23 16:06 Freq: Status: Active Protocol: Document 02/12/23 16:07 AM (Rec: 02/12/23 17:26 AM [id number]) Posture Evaluation Position Standing L-Spine Posture Flexed Pelvis Posture Anteriorly Tilted PT-OP-M Strength Start: 02/12/23 16:06 Freq: Status: Active Protocol: Document 02/12/23 16:07 AM (Rec: 02/12/23 17:26 AM [id number]) Hip Strength Hip Manual Muscle Testing Left Flexion (L2) 4- Good- Abduction 4- Good- Adduction 4- Good- Right Flexion (L2) 4- Good- Abduction 4- Good- Adduction 4- Good- Knee Strength Knee Manual Muscle Testing Left Flexion (S2) 4- Good- Extension (L3) 3+ Fair+ Right Flexion (S2) 4- Good- Extension (L3) 4- Good- Ankle/Foot Strength Ankle and Foot Manual Muscle Testing Left Dorsiflexion (L4) 4- Good- Plantarflexion (S1) 4- Good- Right Dorsiflexion (L4) 4- Good- Plantarflexion (S1) 4- Good- PT-OP-Q Treatments Start: 02/12/23 16:06 Freq: Status: Active Protocol: Document 07/20/23 10:42 NBM (Rec: 07/20/23 11:41 [facility] [id number]) Cardio Equipment Recumbent Stepper (Sci-Fit) Duration (Minutes) 9 Resistance 9 Seat Position 13 Other UE/LE Therapeutic Exercises Sitting Exercises LAQ Side bilateral Resistance 4# ankle weight Reps/Minutes 2x10 ea Comments cued upright trunk posture hip abduction Side bilateral Resistance lvl 2 resistance band Reps/Minutes 3x10 Comments cued to prevent trunk lean glute medius activation Side bilateral Resistance lvl 2 resistance band Reps/Minutes 1x60 Comments max isometric hold HS curl Sitting Exercise Name standing today Side bilateral Resistance 4# ankle wt Reps/Minutes 2x10 Comments kick your butt stretching Sitting Exercise Name B and R/L QL: FF, diagonal; trunk rotation Side bilateral Reps/Minutes 5 breath each direction; x10 trunk rotation Comments improved back stretch reports sit to stand Side bilateral Resistance with fwd reach for ant weight shift Equipment Used plinth Reps/Minutes 1x10 from lower ht, 1x10 from elevated ht Comments improved ant weight shift, upright posture toe raise Sitting Exercise Name reviewed for HEP heel raise Sitting Exercise Name reviewed for HEP Gait Training Gait Activity 4WW Description 4# ankle weights Device Used 4WW Level of Assistance close SBA Surface stable (carpet, tile) Distance/Duration 966 ft Treatment Focus nml gait, endurance, stability , foot clearance Comments Improved foot clearance with external cues (4# weights) on ankles. Demos improved stability with 4WW, but does need cues for proximation and upright posture when approaching fatigue due to increased weightbearing through UEs. Cued soft L knee to limit hyperext Trekking poles Description indoor ambulation, 4# ankle weights Device Used unilateral trekking pole RUE Level of Assistance close SBA Surface carpet Distance/Duration 2x15 ft Treatment Focus endurance and gait pattern, sequencing Comments No cues for sequencing of trek pole. Cued for soft slight L knee flex during stance, increased R step length, slower turns for safety. Improved foot clearance and slower gait with 4# ankle weights (external target) Self-Care/Home Management Treatment Education Patient Education Home Exercise Program,Safety Other Education HEP Review: 5 minutes-HEP: seated clams, STS 5x at meals, LAQ, standing july w UE support, standing HSC with UE support, standing heel raises, seated toe raises. Instructed that can perform seated HSC or heel raises per tolerance. Educated on UE support at stable surface (e.g. counter) for safety. Pt verbalizes understanding PT-OP-R Modalities Start: 02/12/23 16:06 Freq: Status: Active Protocol: Document 06/01/23 13:46 NBM (Rec: 06/01/23 15:57 NB [id number]) Hot Pack/Cold Pack Treatment Hot Pack Location lumbar Patient Position Hooklying Treatment Duration (minutes) 15 Patient Tolerance Good PT-OP-T Assessment and Plan Start: 02/12/23 16:06 Freq: Status: Active Protocol: Document 07/20/23 10:42 NBM (Rec: 07/20/23 11:41 [facility] [id number]) Physical Therapy Assessment Goals Tandem stance Impairment Balance Impairment Pt able to hold tandem stance for 10 seconds, requiring use of hands to achieve position. Short Term Goal (STG) Pt able to hold tandem stance bilaterally for 16 seconds. 03/04/23: Goal progressing. Pt able to hold for 15 seconds bilaterally. STG Duration 03/04/23 Senior Care Goal (LTG) Pt able to hold tandem stance for 25 seconds bilaterally. 06/25/23: able to achieve tandem for 30 sec BLE, difficult but able to achieve position IND 06/03/23: Pt able to maintain tandem stance for 30 seconds with RLE and semi-tandem stance with LLE for 30 seconds . Continues to demo difficulty with achieving position. 04/26/23: unable to hold 10 sec without LOB 03/26/23: Pt able to hold 15 seconds bilaterally LTG Duration 04/30/23 MET HEP Impairment Pt with limited HEP Senior Care Goal (LTG) Pt is independent with HEP 07/02/23: reports HEP every day 06/03/23: Pt reports min compliance with HEP LTG Duration 04/30/23 MET Balance Impairment Camacho balance Impairment Camacho balance score of 38/56 Short Term Goal (STG) Pt with improved balance with improved Camacho balance score of 43/56. 03/08/23: Camacho balance score of 43/56 STG Duration 03/04/23 (Goal met 03/08/23: 43/ 56) Sales Administration Specialist Goal (LTG) Pt with improved balance with improved Camacho balance score of 48/56 06/03/23: MET, score 48/56. Pt only unable to perform standing on 1 foot and difficulty with maintaining tandem stance 03/26/23: 47/56 Camacho Balance score GOAL NOT MET 04/26/23: 47/56 ( unchanged) LTG Duration 04/30/23 MET Strength Impairment Strength Impairment Pt able to complete 5 STS squats in 34.7 seconds with minimal use of unilateral UE at chair that is 20 inches in height. Short Term Goal (STG) Pt able to complete 5 STS squats in 25 seconds without use of UE at chair that is 20 inches in height. Goal Met: 03/04/23 Pt able to complete in 25 seconds. STG Duration 03/05/23 Senior Care Goal (LTG) Pt able to complete 5 STS squats in 18 seconds without use of UE at chair that is 20 inches in height. 06/03/23: 16.76 sec 5x STS squats without UE use from 20 chair 04/26/23: 22 sec 5x STS squats (regression) 03/29/23: Pt able to do 5 STS squats in 19 seconds without UE support. LTG Duration 04/30/23 MET 6MWT Impairment Endurance Impairment Pt able to ambulate 886 ft with unilateral trekking pole in 6 minutes. Short Term Goal (STG) Pt able to ambulate 1000 ft with unilateral trekking pole or LRAD in 6 minutes. 03/04/23. Pt ambulated 804 ft. Pt reports increase in LBP with walking. Goal unmet on 06/03/23: 974 ft with uni trekking pole. Would benefit from more stable AD. 06/11/23: Pt ambulates 1,083 ft w/ 4WW - goal met. STG Duration 03/05/23 - Goal met 06/11/23 Senior Care Goal (LTG) Pt able to ambulate 1150 ft with unilateral trekking pole or LRAD in 6 minutes. GOAL UNMET 06/03/23: 974 ft with uni trekking pole. Pt would benefit from more stable AD 04/26/23: 874 FT with uni trekking pole Goal unmet on 03/29/23: Pt ambulated 805ft. 06/11/23: Pt ambulates 1,083 ft w/ 4WW. 06/29/23: 1042 ft with 4ww LTG Duration 04/30/23 PROGRESSING Assessment Summary Assessment Nevaeh presents w/ single trekking pole in RUE. She forgets daily exercise log today. She demonstrates increased activity tolerance with increased resistance from 8>9 on recumbent stepper 9 min start of session, and end of session ambulating 966 ft to fatigue w/ 4WW and 4# ankle weights ea B without a rest break. She requires cues for proximation and upright posture w/ fatigue using 4WW. Physical Therapy Plan Frequency and Duration Frequency of Treatment 2x/Week Duration of treatment (weeks) 24 Plan of Care Start Date 02/12/23 Plan of Care End Date 07/23/23 Therapeutic Interventions Therapeutic Interventions Balance Training,Coordination Training,Gait Training,Home Exercise Program,Manual Therapy,Neuromuscular Re- education,Patient/Caregiver Education,Self-Care/Home Management,Soft Tissue Mobilization,Taping, Therapeutic Activities, Therapeutic Exercises Modalities Cold Pack/Ice Massage,Hot Packs Next Visit Focus/Plan Next Note Type Treatment Note Next Visit Plan Pt will bring in her daily exercise log for practice how to utilize with her HEP. Continue POC. Add more stepping and dynamic activities to improve reaction time and stability techniques POC: Gait training with 4WW ( repeat ~6 MWT for distance at start of session), add inclines/obstacles with/out trek pole/AD. Continue with balance training and BLE strengthening. Update HEP focus on higher level balance and gait (melvin uneven surfaces, inclines, etc ) with and without trek pole. Cont with core and hip strengthening D/c on 07/23
--- NOTE | 2023-07-23 11:34 | PT.OTN ---
Current Diagnoses Unsteadiness on feet (07/23/23) Other abnormalities of gait and mobility (07/23/23) Weakness (07/23/23) Physical Therapy Treatment Note PT-OP-A Visit Information Start: 02/12/23 16:06 Freq: Status: Active Protocol: Document 07/23/23 10:34 NM (Rec: 07/23/23 11:34 NM [id number]) Out-Patient Physical Therapy Visit Information Visit Information Visit Type Discharge Summary Visit Start Time 10:35 Visit Stop Time 11:15 Visit Number 39 PT-OP-B Current Condition Start: 02/12/23 16:06 Freq: Status: Active Protocol: Document 02/25/23 13:31 AM (Rec: 02/25/23 14:17 AM [id number]) Current Condition History of Current Condition Onset Date 2020 Current Complaints weakness, unsteadiness History of Current Condition Pt reports that she would like to improve her balance, strength and endurance. Pt with hx of bilateral TKA. Pt had a fall in Dec 2020 and fractured her L patella. She wore a knee immplizer and had surgery, though continues to have difficulty with knee. Pt reports that she locks knee in standing for stability. Pt reports that she walks with walking stick for community ambulation and no AD with household. Pt denies fall since her fall in 2020. Pt reports that she is able to ambulate 2-3 blocks before need to sit because of knee pain and fatigue. Pt reports that she recently got a recumbent bike and plans to use it daily for 20 min. Prior Treatments and Tests Prior PT for knees, back and balance issues Future Testing and Treatments Planned Pt will see her PCP next week and hoping to get low back x- rays PT-OP-C Subjective Start: 02/12/23 16:06 Freq: Status: Active Protocol: Document 07/23/23 10:34 NM (Rec: 07/23/23 11:34 NM [id number]) OP-PT Subjective Patient Comments Patient Comments Pt reports that she's tired, had a busy morning. Brought former HEP. States she's agreeable to discharge. PT-OP-D Balance Start: 02/12/23 16:06 Freq: Status: Active Protocol: Document 03/29/23 13:33 AM (Rec: 03/29/23 14:18 AM [id number]) Camacho Balance Assessment Evaluation Sitting to Standing Ability Independent w/out Hands Unsupported Stance Safely- 2 minutes Sitting Unsupported, Feet on Floor Safely- 2 minutes Standing to Sitting Ability Safely, Minimal Hand Use Transfer Ability Safely, Minimal Hand Use Unsupported Stance- Eyes Closed Supervision, 10 seconds Unsupported Stance- Eyes Open Supervision to maintain Reaching Forward Standing Confidently, 10 inches Pick- Up Object From Floor Independent/Safe Look Behind Shoulder - Standing Shifts Weight Well Turning 360 Degrees Turns , < 4 secs Unsupported Stance, Alternating Feet on (I)- 8 Steps in > 20 secs Stair Unsupported Tandem Stance Small Step- 30 seconds Unilateral Leg Stance Lifts Leg/Unable to Hold Total Score Camacho Total Score (out of 56 points) 47 PT-OP-E Functional Tests Start: 02/12/23 16:06 Freq: Status: Active Protocol: Document 03/29/23 13:33 AM (Rec: 03/29/23 14:18 AM [id number]) Functional Tests Five Times Sit to Stand Test Score 18.7 Comments 20 in height PT-OP-G Mobility & Gait Start: 02/12/23 16:06 Freq: Status: Active Protocol: Document 02/25/23 13:31 AM (Rec: 02/25/23 14:18 AM [id number]) OP Gait Assessment Gait Gait Assistance Required: Independent Gait Deviations General Gait Pattern Antalgic Factors Limiting Gait Function Factors Limiting Gait Function Decreased Strength,Pain,Poor Balance Comments Gait Comments Pt ambulates with unilateral trekking pole. PT-OP-J Posture/Palpation/Skin Start: 02/12/23 16:06 Freq: Status: Active Protocol: Document 02/12/23 16:07 AM (Rec: 02/12/23 17:26 AM [id number]) Posture Evaluation Position Standing L-Spine Posture Flexed Pelvis Posture Anteriorly Tilted PT-OP-M Strength Start: 02/12/23 16:06 Freq: Status: Active Protocol: Document 02/12/23 16:07 AM (Rec: 02/12/23 17:26 AM [id number]) Hip Strength Hip Manual Muscle Testing Left Flexion (L2) 4- Good- Abduction 4- Good- Adduction 4- Good- Right Flexion (L2) 4- Good- Abduction 4- Good- Adduction 4- Good- Knee Strength Knee Manual Muscle Testing Left Flexion (S2) 4- Good- Extension (L3) 3+ Fair+ Right Flexion (S2) 4- Good- Extension (L3) 4- Good- Ankle/Foot Strength Ankle and Foot Manual Muscle Testing Left Dorsiflexion (L4) 4- Good- Plantarflexion (S1) 4- Good- Right Dorsiflexion (L4) 4- Good- Plantarflexion (S1) 4- Good- PT-OP-Q Treatments Start: 02/12/23 16:06 Freq: Status: Active Protocol: Document 07/23/23 10:34 NM (Rec: 07/23/23 11:34 NM [id number]) Therapeutic Exercises Supine Exercises DKTC Supine Exercise Name static and w/ gentle lateral rocks Side bilateral Equipment Used plinth Reps/Minutes 1x30 Comments relieves lumbar stiffness and pain LTR Supine Exercise Name lower trunk rotation Side bilateral Reps/Minutes 10x5 Comments vc for PPT to avoid lumbar hyperextension Bridge Supine Exercise Name Bridge Side bilateral Reps/Minutes x10 ea Comments vc for gluteal activation, no breathholding SKTC Supine Exercise Name straight Side bilateral Reps/Minutes 1x5 ea with brief hold Sitting Exercises LAQ Side bilateral Reps/Minutes 1x10 ea with 5 hold Comments cued upright trunk posture glute medius activation Side bilateral Resistance lvl 2 resistance band Reps/Minutes 1x30 with brief hold HS curl Sitting Exercise Name seated Side bilateral Resistance lvl 2 teal tb Reps/Minutes 1x10 ea Comments cued upright trunk sit to stand Side bilateral Resistance with fwd reach for ant weight shift Equipment Used plinth Reps/Minutes 1x10 Comments improved ant weight shift, upright posture toe raise Side bilateral Resistance isometric hold Reps/Minutes 1x15 ea with 5 hold heel raise Side bilateral Resistance isometric hold Reps/Minutes 1x15 with 5 hold Standing Exercises Standing TKE Standing Exercise Name Standing TKE Resistance lvl 2 teal tb, PT holding Reps/Minutes 1x10 with 3 hold Comments cued slower pacing eccentric flexion & no hyperextension/ more slit knee ext Gait Training Gait Activity 6 MWT Device Used 4ww Level of Assistance IND Surface stable Distance/Duration 1066 ft Treatment Focus endurance, nml gait, safety with 4ww Comments Uses fwd flexed trunk to decrease low back pain. Demos improved soft L knee and level pelvis post cues for proximal and light UE contact on 4ww. Better stability with 4ww than trekking stick. Self-Care/Home Management Treatment Education Patient Education Home Exercise Program,Safety Other Education 8 minutes: Reviewed previous HEP with pt regarding low back , knee, hip strengthening exercises. Established current HEP for maintenance program, educating on performing at least 3x/wk to maintain progress. Educated on safety during gait, recommended more frequent use of 4ww for safety but educated regarding increased visual scanning and awareness of foot placement with surface changes when using trek pole. PT-OP-R Modalities Start: 02/12/23 16:06 Freq: Status: Active Protocol: Document 06/01/23 13:46 NBM (Rec: 06/01/23 15:57 NBM [id number]) Hot Pack/Cold Pack Treatment Hot Pack Location lumbar Patient Position Hooklying Treatment Duration (minutes) 15 Patient Tolerance Good PT-OP-T Assessment and Plan Start: 02/12/23 16:06 Freq: Status: Active Protocol: Document 07/23/23 10:34 NM (Rec: 07/23/23 11:34 NM [id number]) Physical Therapy Assessment Goals Tandem stance Impairment Balance Impairment Pt able to hold tandem stance for 10 seconds, requiring use of hands to achieve position. Short Term Goal (STG) Pt able to hold tandem stance bilaterally for 16 seconds. 03/04/23: Goal progressing. Pt able to hold for 15 seconds bilaterally. STG Duration 03/04/23 Wheel Shop Supervisor Goal (LTG) Pt able to hold tandem stance for 25 seconds bilaterally. 06/25/23: able to achieve tandem for 30 sec BLE, difficult but able to achieve position IND 06/03/23: Pt able to maintain tandem stance for 30 seconds with RLE and semi-tandem stance with LLE for 30 seconds . Continues to demo difficulty with achieving position. 04/26/23: unable to hold 10 sec without LOB 03/26/23: Pt able to hold 15 seconds bilaterally LTG Duration 04/30/23 MET HEP Impairment Pt with limited HEP Wheel [employer] Supervisor Goal (LTG) Pt is independent with HEP 07/02/23: reports HEP every day 06/03/23: Pt reports min compliance with HEP LTG Duration 04/30/23 MET Balance Impairment Camacho balance Impairment Camacho balance score of 38/56 Short Term Goal (STG) Pt with improved balance with improved Camacho balance score of 43/56. 03/08/23: Camacho balance score of 43/56 STG Duration 03/04/23 (Goal met 03/08/23: 43/ 56) Correction Goal (LTG) Pt with improved balance with improved Camacho balance score of 48/56 06/03/23: MET, score 48/56. Pt only unable to perform standing on 1 foot and difficulty with maintaining tandem stance 03/26/23: 47/56 Camacho Balance score GOAL NOT MET 04/26/23: 47/56 ( unchanged) LTG Duration 04/30/23 MET Strength Impairment Strength Impairment Pt able to complete 5 STS squats in 34.7 seconds with minimal use of unilateral UE at chair that is 20 inches in height. Short Term Goal (STG) Pt able to complete 5 STS squats in 25 seconds without use of UE at chair that is 20 inches in height. Goal Met: 03/04/23 Pt able to complete in 25 seconds. STG Duration 03/05/23 Wheel Shop Supervisor Goal (LTG) Pt able to complete 5 STS squats in 18 seconds without use of UE at chair that is 20 inches in height. 06/03/23: 16.76 sec 5x STS squats without UE use from 20 chair 04/26/23: 22 sec 5x STS squats (regression) 03/29/23: Pt able to do 5 STS squats in 19 seconds without UE support. LTG Duration 04/30/23 MET 6MWT Impairment Endurance Impairment Pt able to ambulate 886 ft with unilateral trekking pole in 6 minutes. Short Term Goal (STG) Pt able to ambulate 1000 ft with unilateral trekking pole or LRAD in 6 minutes. 03/04/23. Pt ambulated 804 ft. Pt reports increase in LBP with walking. Goal unmet on 06/03/23: 974 ft with uni trekking pole. Would benefit from more stable AD. 06/11/23: Pt ambulates 1,083 ft w/ 4WW - goal met. STG Duration 03/05/23 - Goal met 06/11/23 Wheel Shop Supervisor Goal (LTG) Pt able to ambulate 1150 ft with unilateral trekking pole or LRAD in 6 minutes. GOAL UNMET 06/03/23: 974 ft with uni trekking pole. Pt would benefit from more stable AD 04/26/23: 874 FT with uni trekking pole Goal unmet on 03/29/23: Pt ambulated 805ft. 07/23/23: 1066 ft wtih FWW 06/11/23: Pt ambulates 1,083 ft w/ 4WW. 06/29/23: 1042 ft with 4ww LTG Duration 04/30/23 NOT MET Progress Towards Goals Progress Towards Goals Slow Progress due to Activity Tolerance,Goals Met Progress Comments All goals met except 6 MWT distance, max up to 1083 ft Assessment Summary Assessment Pt tolerated session well. Session focus on reviewing past HEP, establishing maintenance HEP as pt discharges today. Continued with hip, knee strengthening in both seated and standing positions with emphasis on safety and correct execution during exercise. Performed low back stretching and mobilization, in addition to gentle core exercises to improve pt low back pain management. Pt did not meet 6 MWT distance today, ambulating 1066 ft with 4ww. Demos improved dian, stability, and smoothness of gait; however, not able to ambulate goal distance within 6 minutes due to activity tolerance and decreased gait speed. Pt has been seen since January 2023 for gait and balance abnormalities. Since IE, pt has slowly progressed toward goals and has met 4/5 LTGs. She demonstrates increased BLE strength, endurance, and ability to participate in ADLs/IADLs with few limitations. Over episode of care, pt has improved balance and is able to maintain balance with changing MICAH using good hip, ankle, and stepping strategies. Her Camacho score increased, indicating decreased fall risk . She continues to demonstrate increased awareness of limitations and personal safety. Pt has improved 6 MWT distance signficantly since IE , but did not meet distance goal due to activity tolerance limitations. PT educated pt on more frequent use of 4ww during longer community distances, as pt is more stable with that AD vs single trek pole. Pt verbalizes agreement. PT educated pt on follow up with PCP for new referral if she notices changes in gait, balance, or changes in low back symptoms. Pt issued HEP with maintenance program, educated on performance 3x/wk. Pt verbalizes agreement. Pt is safe to discharge to independent exercise. Physical Therapy Plan Frequency and Duration Frequency of Treatment 2x/Week Duration of treatment (weeks) 24 Plan of Care Start Date 02/12/23 Plan of Care End Date 07/23/23 Therapeutic Interventions Therapeutic Interventions Balance Training,Coordination Training,Gait Training,Home Exercise Program,Manual Therapy,Neuromuscular Re- education,Patient/Caregiver Education,Self-Care/Home Management,Soft Tissue Mobilization,Taping, Therapeutic Activities, Therapeutic Exercises Modalities Cold Pack/Ice Massage,Hot Packs Discharge Physical Therapy Discharge Reasons Patient Request Discharge Comments Pt will be going on vacation for 1 month, POC expires; plateau in status Next Visit Focus/Plan Next Visit Plan Discharge from PT services
== END 2023-07-27 09:45 | disposition home or self-care (01) ==
LOC: PHYS 10:30
PROVIDERS: Absent Provider Internal Medicine; Family Provider Family Medicine; PCP Internal Medicine; Referring Provider Internal Medicine; Visit Provider Internal Medicine
DX: R26.89 Other abnormalities of gait and mobility (principal); R26.81 Unsteadiness on feet; R53.1 Weakness
CPT/HCPCS: 97110; 97112; 97116; 97161; 97530; 97535

== ENCOUNTER → 2024-01-06 13:47 | Outpatient (CLI) | payer MEDICARE, OTHER, SELFPAY ==
[2020-04-10 17:30] VITALS: BMI 29.1
--- NOTE | 2024-01-06 13:48 | DI.MG.S_ITS ---
BILATERAL DIGITAL SCREENING MAMMOGRAM 3D/2D WITH CAD: 01/06/2024 CLINICAL: Routine screening. Comparison is made to exams dated: 12/07/2022 mammogram, 09/01/2021 mammogram, and 05/23/2020 mammogram - [facility]. Both breasts are heterogeneously dense, which may obscure small masses (category c / 51-75% glandular tissue). Current study was also evaluated with a Computer Aided Detection (CAD) system. There are benign cysts in the left breast. There also are benign diffuse calcifications in both breasts. Additionally, there are benign calcifications in both breasts. No significant masses, calcifications, or other findings are seen in either breast. There has been no significant interval change. IMPRESSION: BENIGN There is no mammographic evidence of malignancy. A 1 year screening mammogram is recommended. Based on the Tyrer Cuzick model (a risk assessment model) the patient's lifetime risk is 0.2% and her 10 year risk is 0.0%. According to the ACR, ACS, and NCCN guidelines, an annual breast MRI exam along with mammogram is recommended if the patient's lifetime risk is 20% or greater. This exam was interpreted at Station ID: [id number]. NOTE: For mammograms, a report in lay terms will be sent to the patient. Approximately 15% of breast malignancies will not be visualized mammographically. In the management of a palpable breast mass, a negative mammogram must not discourage biopsy of a clinically suspicious lesion. Electronically Signed By: Papa carty/clarisse:01/06/2024 16:29:48 letter sent: Normal Exam ACR BI-RADS Category 2: Benign Finding(s) 3342F
== END ==
PROVIDERS: Family Provider Family Medicine; PCP Internal Medicine; Referring Provider Internal Medicine; Visit Provider Internal Medicine
DX: Z12.31 Encounter for screening mammogram for malignant neoplasm of breast (principal); R92.333 Mammographic heterogeneous density, bilateral breasts
CPT/HCPCS: 77063; 77067

== ENCOUNTER → 2024-03-21 14:42 | Outpatient (ROUT) | payer MEDICARE, OTHER, SELFPAY ==
[2020-04-10 17:30] VITALS: BMI 29.1
[2024-03-21 15:24] LABS: COVID-19 CEPHEID 4-PLEX PCR Negative (Negative); Influenza A - CEPHEID Flu A NEGATIVE (NEGATIVE); Influenza B - CEPHEID Flu B NEGATIVE (NEGATIVE); Respiratory Syncytial Virus Negative (Negative)
== END ==
PROVIDERS: Family Provider Family Medicine; PCP Internal Medicine; Visit Provider Internal Medicine
DX: R05.1 Acute cough (principal); R09.81 Nasal congestion
CPT/HCPCS: 0241U

== ENCOUNTER → 2024-07-03 10:40 | Outpatient (CLI) | payer MEDICARE, OTHER, SELFPAY ==
[2020-04-10 17:30] VITALS: BMI 29.1
--- NOTE | 2024-07-03 10:42 | DI.RAD.S_ITS ---
PROCEDURE: XR DEXA AXIAL SKELETON INDICATIONS: POSTMENOPAUSAL / OSTEOPOROSIS SCREENING COMPARISON: None. FINDINGS: Left Femoral Neck: Bone mineral density 0.745 g/cm2, T score -0.9. Left Hip: Bone mineral density 0.875 g/cm2, T score -0.5, decreased by 9.3%. Left Forearm: Bone mineral density 0.645 g/cm2, T score -0.8. Fracture Risk Calculation (when applicable): 10-year fracture risk of a major osteoporotic fracture 11 percent and of a hip fracture 3.2 percent. (T score greater or equal to -1.0 to: NORMAL) (T score from -1.1 to -2.4: OSTEOPENIA) (T score less than or equal to -2.5: OSTEOPOROSIS) IMPRESSION: Normal bone mineral density by WHO classification. Follow-up guidelines as follows: Osteoporosis: Consider a repeat DEXA and Vertebral Fracture Assessment (VFA) exam in 2 years or sooner if medically necessary, to reassess this patient's status. Osteopenia: Consider a repeat DEXA in 2-3 years to reassess this patient's status, or if there is a new clinical indication. Normal: Consider a repeat DEXA in 5 years or sooner, or if there is a new clinical indication. All treatment decisions require clinical judgment and consideration of individual patient factors, including patient preferences, comorbidities, previous drug use, risk factors not captured in the FRAX model (e.g., frailty, falls, vitamin D deficiency, increased bone turnover, interval significant decline in bone density ) and possible under- or over-estimation of fracture risk by FRAX. In addition, the NOF Guide recommends that FDA-approved medical therapies be considered in postmenopausal women and men age >= 50 years with a: * Hip or vertebral (clinical or morphometric) fracture * T-score of <=-2.5 at the spine or hip * Ten-year fracture probability by FRAX of >= 3% for hip fracture or >=20% for major osteoporotic fracture. Dictated by: Sulaiman Henry M.D. on 07/03/2024 at 13:18 Approved by: Sulaiman Henry M.D. on 07/03/2024 at 13:19
== END ==
PROVIDERS: Family Provider Family Medicine; PCP Family Medicine; Referring Provider Family Medicine; Visit Provider Family Medicine
DX: Z78.0 Asymptomatic menopausal state (principal); Z87.39 Personal history of other diseases of the musculoskeletal system and connective tissue
CPT/HCPCS: 77080